=== PATIENT | male | born 1950 | race Caucasian/White ===

== ENCOUNTER 2018-12-16 08:48 | Outpatient (REF) | payer OTHER, SELFPAY ==
[2018-12-16 14:11] LABS: Cholesterol 163 mg/dL (50-200); Glucose 102 mg/dL (70-100); HDL Cholesterol 34 mg/dL (40-60); LDL CHOLESTEROL 108 mg/dL (<100); Triglyceride 127 mg/dL (30-150)
[2018-12-16 14:17] LABS: COMMENT (LAB VIEW ONLY) 268.89 mg/dL; Microalb ug/mg Crea 2.3 ug/mg Cr
[2018-12-16 15:10] LABS: Bacteria Moderate HPF (Negative); C & S Indicated? Yes; Casts Negative LPF (Negative); Crystals Negative HPF (Negative); Epithelial Cells Rare HPF (Negative); Mucus Moderate (Negative); RBC Negative (0-2)
[2018-12-17 12:12] LABS: Hepatitis C Ab w Rflx HCV PCR Negative (NEGAT)
== END 2018-12-16 09:08 ==
LOC: NCHCN 08:48
PROVIDERS: PCP Nurse Practitioner Family; Visit Provider Nurse Practitioner
DX: C64.2 Malignant neoplasm of left kidney, except renal pelvis (principal); I10 Essential (primary) hypertension; R73.09 Other abnormal glucose; Z83.3 Family history of diabetes mellitus; Z11.59 Encounter for screening for other viral diseases
CPT/HCPCS: 80061; 82947; 83721; 86803; 81015; 82043; 82570; 87086

== ENCOUNTER 2018-12-17 13:45 | Outpatient (REF) | payer OTHER, SELFPAY ==
[2018-12-17 21:53] LABS: Abs Immature Grans 0.01 k/cumm (0.0-0.09); Absolute Basophil Count 0.01 k/cumm (0.0-0.2); Absolute Eosinophil Count 0.09 k/cumm (0.0-0.7); Absolute Lymphocyte Count 1.85 k/cumm (1.2-3.4); Absolute Monocyte Count 0.38 k/cumm (0.11-0.7); Absolute Neutrophil Count 2.71 k/cumm (1.2-6.7); Basophils % 0.2; Eosinophils % 1.8; HCT 41.6 % (40.0-50.0); Immature Grans % 0.2; Lymphocytes % 36.6; Mean Corp. HGB Concentration 33.7 g/dL (32.0-36.0); Mean Corpuscular Hemoglobin 30.8 pg (27.0-33.0); Mean Corpuscular Volume 91.4 fL (80-95); Mean Platelet Volume 11.5 fL (8.0-11.0); Monocytes % 7.5; Neutrophils % 53.7; Platelet Count 185 x1000/uL (130-400); RBC 4.55 m/cumm (4.50-6.00); RBC Distribution Width 13.2 % (11.8-14.1); White Blood Cell Count 5.05 k/cumm (4.4-10.8)
[2018-12-17 22:07] LABS: ALT 60 U/L (12-78); AST 32 U/L (15-37); Albumin 3.7 g/dL (3.4-5.0); Alkaline Phosphatase 126 U/L (46-116); Amylase 104 U/L (25-115); Anion Gap 8.5 mmol/L (3-11); BUN 25 mg/dL (7-18); Bilirubin, Total 0.5 mg/dL (0.2-1.0); CO2 26.5 mmol/L (21.0-32.0); Calcium 8.8 mg/dL (8.5-10.1); Chloride 106 mmol/L (98-107); Glucose 89 mg/dL (70-100); Lipase 357 U/L (73-393); Potassium 4.6 mmol/L (3.5-5.1); Sodium 141 mmol/L (136-145); Total Protein 7.1 g/dL (6.4-8.2)
== END 2018-12-17 14:05 ==
LOC: NCHCN 13:45
PROVIDERS: PCP Nurse Practitioner Family; Visit Provider Nurse Practitioner
DX: R19.4 Change in bowel habit (principal)
CPT/HCPCS: 80053; 83690; 82150; 85025

== ENCOUNTER 2020-05-18 10:12 | Outpatient (REF) | payer OTHER, SELFPAY ==
[2020-05-18 20:46] LABS: Anion Gap 10.1 mmol/L (3-11); BUN 21 mg/dL (7-18); CO2 25.9 mmol/L (21.0-32.0); CREATININE 1.24 mg/dL (0.70-1.30); Calcium 8.7 mg/dL (8.5-10.1); Chloride 106 mmol/L (98-107); Glucose 124 mg/dL (74-106); Sodium 142 mmol/L (136-145)
== END 2020-05-18 10:32 ==
LOC: NCHCN 10:12
PROVIDERS: PCP Nurse Practitioner Family; Visit Provider Nurse Practitioner Family
DX: I10 Essential (primary) hypertension (principal)
CPT/HCPCS: 80048

== ENCOUNTER 2020-08-16 00:39 | Outpatient (CLI) | payer OTHER, SELFPAY ==
--- NOTE | 2020-08-16 | DI.RAD_ITS ---
EXAM: XR CHEST 2V PA LATERAL CLINICAL HISTORY: H/O RCC,F/U CHEST WITH NIPPLE MARKERS,C64.9 TECHNIQUE: COMPARISON: CR LEFT SHOULDER COMPLETE from 07/26/2016 FINDINGS: PA and lateral view of the chest, nipple markers were utilized. Nipple shadows are visible bilateral ly. No suspicious intrapulmonary nodularity or consolidation. No pleural effusion. Cardiomediastin al silhouette is unremarkable. IMPRESSION: Negative examination of the chest RADIATION DOSE DELIVERED: Total DLP
== END 2020-08-16 00:59 ==
PROVIDERS: PCP Nurse Practitioner Family; Visit Provider Surgery
DX: C64.9 Malignant neoplasm of unspecified kidney, except renal pelvis (principal)
CPT/HCPCS: 71046

== ENCOUNTER 2020-08-16 10:19 | Outpatient (CLI) | payer OTHER, SELFPAY ==
--- NOTE | 2020-08-16 08:45 | DI.RAD_ITS ---
EXAM: XR SHOULDER LT COMPLETE 2+V CLINICAL HISTORY: shoulder pain TECHNIQUE: COMPARISON: CR LEFT SHOULDER COMPLETE from 02/12/2012 FINDINGS: Two views were obtained. There is virtually complete loss of the cartilaginous joint space of the gl enohumeral joint with very prominent marginal osteophyte formation noted, particularly inferiorly inv olving the humeral head and glenoid. There is marked subchondral sclerosis of the adjacent bones. Slight degenerative changes of the AC joint also noted. IMPRESSION: End-stage degenerative changes glenohumeral joint as described above. RADIATION DOSE DELIVERED: Total DLP
== END 2020-08-16 10:39 ==
PROVIDERS: PCP Nurse Practitioner Family; Referring Provider Nurse Practitioner Family; Visit Provider Student in an Organized Health Care Education/Training Program
DX: M19.012 Primary osteoarthritis, left shoulder (principal)
CPT/HCPCS: 73030

== ENCOUNTER 2020-08-28 01:03 | Outpatient (CLI) | payer OTHER, SELFPAY ==
--- NOTE | 2020-08-28 07:00 | DI.MRI_ITS ---
EXAM: MR UPPER JOINT LT WO CLINICAL HISTORY: rotator cuff tear shoulder replacement planning,lt rotator cuff tear, TECHNIQUE: Multiplanar multisequence MRI of the shoulder was performed. COMPARISON: No exams were available for comparison FINDINGS: MARROW:There is no evidence of fracture, Hill-Sachs deformity, nor ominous osseous lesions. Advanced degenerative changes in the glenohumeral joint, as described below. There is also a moderate-sized g lenohumeral joint effusion extends into the medial recess. ROTATOR CUFF MECHANISM: AC JOINT/ACROMIUM: There are moderate degenerative changes in acromioclavicular joint. Undersurface of the acromion is concave.. There is no evidence of os acromiale. Supraspinatus: Partial-thickness tearing. Small area of what is most probably a full-thickness tear. There is fluid in subacromial-subdeltoid bursa. Minimal atrophy. Infraspinatus: Some insertional tendinitis. No high-grade tear. No atrophy. Teres Minor: Intact. No evidence of tear nor muscle atrophy. Subscapularis/anterior cuff: None GLENOHUMERAL JOINT: Moderate-sized joint effusion. No obvious loose intra-articular body. Advanced degenerative changes with significant Dana cartilage loss and beer-type osteophyte on the inferio r articular surface of the humeral head. Also subarticular small degenerative cysts on the humeral h ead side of the joint. No evidence of capsular tear. The inferior glenohumeral ligament is intact. BICEPS TENDON: Normally positioned within the intertubercular groove. Some increased signal within t he intra-articular component. No tenosynovitis. LABRUM: Anterior labral tear. Also appears be some tearing of the superior labrum. Also posterior l abral signal abnormality consistent with some tearing. No evidence of paralabral cyst. QUADRILATERAL SPACE: No evidence of mass in the region of the axillary nerve and dorsal circumflex hu meral vessels. Visualized triceps muscle at this level appears unremarkable. IMPRESSION: 1. There are advanced osteoarthritic degenerative changes of glenohumeral joint as described above in cluding advanced hyaline cartilage loss, labral tearing, degenerative subarticular cysts, and a promi nent landaverde-type osteophyte on the inferior articular surface of the humeral head. There is a signifi cant glenohumeral joint effusion. No obvious loose intra-articular body. 2. Partial-thickness tearing of the supraspinatus although there is probably a small full-thickness c omponent given that there is fluid in the subacromial-subdeltoid bursa. DATA REPOSITORY:
--- NOTE | 2020-08-28 10:04 | DI.CT_ITS ---
EXAM: CT UPPER EXTREMITY LT WO CLINICAL HISTORY: Preop templating,ARTHRITIS LT SHOULDER,M19.012 TECHNIQUE: Imaging Protocol: Axial computed tomography images with coronal and sagittal reformatted images were created and reviewed. CONTRAST MATERIAL: None COMPARISON: CR XR SHOULDER LT COMPLETE 2+V from 08/16/2020 X-rays 08/16/2020 reviewed FINDINGS: Bones: There are advanced osteoarthritic degenerative changes in the glenohumeral joint including advanced g lenohumeral joint space narrowing, subchondral sclerosis and small degenerative subarticular cysts on both sides of joint. There is also a prominent landaverde-type osteophyte on the inferior articular surf samantha of the humeral head. In addition, there is a loose intra-articular body in the posterior aspect of the joint space behind the osseous glenoid which measures 8 x 7 by 21 millimeters. Coracoid proce ss appears unremarkable. No Hill-Sachs deformity on the humeral head posterolateral aspect. There are no ominous osseous lesions. IMPRESSION: Advanced osteoarthritic degenerative changes in the left glenohumeral joint Intra-articular calcific density posterior to the humeral head-osseous glenoid with measurements as a lori. Prominent glenohumeral joint effusion noted. RADIATION DOSE DELIVERED: 768.52mGy.cm Total DLP DATA REPOSITORY: All CT scans at this facility are submitted to the National Radiology Data Registry (NRDR) Dose Index Registry (DIR) with the [employer] (ACR). RADIATION OPTIMIZATION: All CT scans at this facility use at least one of these dose optimization te chniques: automated exposure control; mA and/or kV adjustment per patient size (includes targeted exa ms where dose is matched to clinical indication); or iterative reconstruction.
== END 2020-08-28 01:23 ==
PROVIDERS: PCP Nurse Practitioner Family; Visit Provider Student in an Organized Health Care Education/Training Program
DX: M19.012 Primary osteoarthritis, left shoulder (principal); M25.412 Effusion, left shoulder; M75.112 Incomplete rotator cuff tear or rupture of left shoulder, not specified as traumatic
CPT/HCPCS: 73200; 73221

== ENCOUNTER 2020-09-01 19:16 | Outpatient (REF) | payer OTHER, SELFPAY ==
[2020-09-01 22:13] LABS: Anion Gap 7.3 mmol/L (3-11); BUN 20 mg/dL (7-18); CO2 27.7 mmol/L (21.0-32.0); CREATININE 1.29 mg/dL (0.70-1.30); Calcium 8.8 mg/dL (8.5-10.1); Chloride 108 mmol/L (98-107); Estimated GFR 55.06 (mL/min/1.73m2); Glucose 84 mg/dL (74-106); Potassium 4.4 mmol/L (3.5-5.1); Sodium 143 mmol/L (136-145); TSH (W/Ref FT4) 2.89 uIU/mL (0.36-3.74)
[2020-09-01 22:50] LABS: Hemoglobin A1C 5.4 % (<5.7)
[2020-09-04 09:59] LABS: PSA, Diagnostic 1.8 ng/mL (0.0-6.5)
[2020-09-06 12:20] LABS: Testosterone, Total 319 ng/dL (240-950)
== END 2020-09-01 19:36 ==
LOC: NCHCN 19:16
PROVIDERS: PCP Nurse Practitioner Family; Visit Provider Nurse Practitioner Family
DX: N52.9 Male erectile dysfunction, unspecified (principal); R73.03 Prediabetes; C64.2 Malignant neoplasm of left kidney, except renal pelvis
CPT/HCPCS: 80048; 84403; 83036; 84153; 84443

== ENCOUNTER 2020-09-04 02:55 | Outpatient (CLI) | payer OTHER, SELFPAY ==
[2020-09-05 15:21] LABS: COVID-19 RT-PCR UVMMC Result Negative (Negative)
== END 2020-09-04 03:15 ==
PROVIDERS: PCP Nurse Practitioner Family; Visit Provider Student in an Organized Health Care Education/Training Program
DX: Z11.59 Encounter for screening for other viral diseases (principal); Z01.818 Encounter for other preprocedural examination
CPT/HCPCS: U0003

== ENCOUNTER 2020-09-07 06:25 | Inpatient (IN) | payer OTHER, SELFPAY ==
[2020-09-07] VITALS (14 sets, daily range): BP systolic 92–153; BP diastolic 46–88; PULSE 51–77; RESP 12–20; TEMP 36.3–36.5; O2SAT 97–100
[2020-09-07] MEDS: Lactated Ringers 1,000 ML 100 ML IV ×2 (09:36→17:44)
[2020-09-07] MEDS: ceFAZolin 2 GM/50 ML BAG IVPB (11:24)
--- NOTE | 2020-09-07 16:00 | ROE_ITS ---
Date of service: 09/07/20 Time of Service: 14:00 Operative Note Operative Note DATE OF PROCEDURE: 09/07/20 PRE-OP DIAGNOSIS: Left shoulder: 1. End-stage glenohumeral arthritis 2. Long head of the biceps tendinopathy 3. Rotator cuff tear 4. Contracture POST-OP DIAGNOSIS: same PROCEDURE: Left: 1. Reverse total shoulder arthroplasty, CPT # 27989 2. Open biceps tenodesis, CPT # 93766 The oral surgery assistant was medically required as this procedure involves retraction, protection of neurovascular structures, and manipulation of multiple instruments and implants at the same time, which cannot be done without a skilled oral surgery assistant. SURGEON: Jax Alexander RECORD PRESS SUPERVISOR: Zina Lyon ANESTHESIA: GETA and regional ESTIMATED BLOOD LOSS: 200 TOURNIQUET TIME: 0 COMPLICATIONS: None Patient was transported to: PACU Patient's condition: stable Implants: [employer] modular glenoid system baseplate 24 mm +2 mm lateralized [employer] modular glenoid system central screw 25 mm [employer] modular glenoid system peripheral locking screws 32 mm inferior, 40 mm superior, 16mm posterior, 16mm anterior [employer] modular glenoid system glenosphere 42 +4 mm lateralized [employer] humeral stem 135 degrees size 9 [employer] suture cup size 42 neutral [employer] spacer size 42 +6 mm [employer] humeral insert size 42 +3 mm Indications: Please see complete medical record for details. Findings: Severe glenohumeral arthritis complete loss articular cartilage, deformity, and impinging osteophytes. Significant anterior capsular contraction. Degeneration thickening and partial tearing of the subscapularis and supraspinatus.. Significant long head of the biceps tendon tenosynovitis, edema, and fraying. Small loose bodies in the axillary recess. Procedure Description: In the operating room, general anesthesia was induced. The patient was positioned beachchair on the operating room table. All bony prominences were well-padded. Preoperative antibiotics were administered. The shoulder was prepped and draped in the usual sterile fashion for shoulder arthroplasty. The correct patient, procedure, and side of the procedure were all verified prior to incision. The deltopectoral approach was taken to the anterior shoulder. Care was taken to bluntly dissect the interval between the deltoid and pectoralis major muscles and to identify the cephalic vein within its fat stripe. The the vein was mobilized medially. Subdeltoid space and conjoined tendon were freed of adhesions. The long head of the biceps tendon was identified just lateral to the lesser tuberosity. The uppermost margin of the pectoralis major tendon was released from the proximal humerus. The long head of the biceps tendon was tenodesed in situ using #2 FiberWire in a [id number] fashion securing it superior margin the pectoralis major tendon. The biceps tendon was amputated and followed proximally to identify the rotator interval. A subscapularis peel was performed taking care to release the entirety tendon in a full-thickness fashion from superior to inferior and lateral to medial while bringing the arm gradually into external rotation. Care was taken to avoid the axillary nerve by only working on the bone inferiorly and medially. A large inferior humeral head osteophyte was removed in piecemeal using a rondure to aid in subscapularis and capsular release. The subscapularis was tagged using #2 FiberWire in a Ed- Shree fashion with stitch was placed superiorly, middle, and inferiorly at the medial footprint of the tendon. The stitches were used to confirm appropriate mobilization of the subscapularis tendon after gentle blunt dissection was used to free up the space anterior and posterior to it. The supraspinatus was identified and debrided significant partial-thickness tearing and removing thickened, degenerative tissue, and underlying osteophytes. Appropriate coagulation was achieved especially inferiorly. The surgical neck was cut using an oscillating saw and bone brought back table in case there was a need for future bone grafting. Attention was then turned to the glenoid and retractors were placed and a 360 degree release performed using the long head of the biceps remnant to remove soft tissue about the glenoid rim. The axillary nerve was palpated but not exposed inferior and traversing from beneath the subscapularis posteriorly below the scapular neck. Care was taken inferiorly to work on bone only between 5 and 7:00 o'clock and bluntly elevate tissues inferiorly. The glenoid was decorticated soft tissue and a minimal amount of residual cartilage. Once adequate exposure had been achieved, the VIP guide was placed on the glenoid and used to confirm placement and trajectory of the central guidepin. The guidepin was inserted through the VIP guide and advanced just through the far cortex ensuring adequate central screw length. Depth gauge was used to confirm appropriate central screw length. The central reamer followed by the peripheral reamer were then used to the appropriate depths. There was appropriate eccentric reaming inferiorly and anteriorly. The tap for the central screw was then used and withdrawn with the guidewire in place confirming appropriate length. The baseplate was screwed and fully compressed onto the glenoid surface. Testing the glenoid baseplate resulted in movement through the entire scapula. The over baseplate reamer was used to confirm adequate peripheral reaming had been achieved. The locking guide and drill were used to drill for inferior and superior baseplate locking screws. The depth gauge was used to confirm appropriate screw length and they were each gently engaged and then tightened once all screws were placed to reduce risk of rotating the baseplate. This was repeated for the anterior and posterior locking screws. The preselected lateralized glenosphere was applied with the infrastructure design engineer and then impacted to engage the Wyman taper. It was then locked with appropriate countersinking of the setscrew. The glenosphere was inspected and found to have good fit, appropriate positioning, and no soft tissue or bony impingement especially inferiorly. Attention was then turned back to the proximal humerus, which was delivered from the wound after additional releases superiorly and maintained in external rotation. Reamers were started appropriately posterior to the bicipital groove taking care to maintain lateralized alignment so as to be straight in line with the humeral canal. Reaming was done up to size 8. The broaches were sequentially used to open the proximal humerus starting with a size 5 and going up to size 9 and sunk to the appropriate depth while maintaining approximately 30 degrees retroversion. The size 9 had good metaphyseal fit and rotational control the humerus. A size 10 was attempted but would have been too large to sink to the appropriate depth. A neutral offset guide was used to ream for the suture cup. The humeral trial cup was connected. Trialing was commenced with +3mm liner. The shoulder was reduced and taken through range of motion. It was felt to moderately loose in terms of tension on the conjoined tendon, deltoid, and stability. The trial components were removed from the proximal humerus. The wound was copiously irrigated with normal saline. The the proximal humeral stem and suture cup were assembled on the back table. They were brought over to the proximal humerus. Humerus and suture cup were appropriately impacted into the proximal humerus. There were tested and found of excellent rotational control and fixation. Trial reduction for stability and range of motion was done again with the +3 mm liner. I felt the stability was lacking so trialing was then done with +6mm liner and then +6mm spacer and +3mm liner. This construct had improved, excellent stability without placing undue tension on the conjoined tendon or deltoid. The trial spacer liner removed and the definitive spacer and liner connected. Shoulder was reduced and these final implants demonstrated appropriate range of motion and stability. The shoulder was copiously irrigated with normal saline and then irrisept. Vancomycin powder was omitted given post nephrectomy status of the patient. The arm was placed in 45 degrees of external rotation. The subscapularis was reduced and repaired over the implant to the lessor tuberosity using the pairs of deep and superficial #2 FiberWire sutures taking care ensure there was no undue tension through 2 mm bone tunnels in the lesser tuberosity. The released supraspinatus was required to the greater tuberosity using #2 FiberWire. The rotator interval laterally was closed between the supraspinatus and the subscapularis also using #2 FiberWire. The arm was taken past 60 degrees of external rotation without any displacement of the subscapularis repair. The deltopectoral interval was loosely closed burying the cephalic vein with 0- Vicryl. Subcutaneous tissue was irrigated then closed using 2-0 Monocryl in a buried interrupted fashion. The skin was closed using 3-0 Monocryl in a buried subcuticular fashion. Skin glue was applied to the incision. A silver impregnated bandage was placed over the incision. The extremity was placed into a shoulder immobilizer. The patient awoke from anesthesia without complication and was taken to the recovery room in stable condition.
--- NOTE | 2020-09-07 16:35 | DI.RAD_ITS ---
EXAM: XR SHOULDER LT COMPLETE 2+V CLINICAL HISTORY: Postop. TECHNIQUE: 2D digital imaging was performed. COMPARISON: No exams were available for comparison FINDINGS: BONES: No acute fracture is present. No bony destructive lesion is seen. JOINTS: The patient is now status post left total reverse shoulder replacement. The orthopedic hardw are appears in good position. SOFT TISSUE: Postsurgical changes are seen in the soft tissues. IMPRESSION: Status post left total reverse shoulder replacement. DATA REPOSITORY: RADIATION DOSE DELIVERED:
--- NOTE | 2020-09-07 16:42 | W.PM.PROGNOT ---
Date of Service Date of service: 09/07/20 Time of Service: 16:42 Assessment and Plan Assessment and plan (1) Arthritis of left shoulder region: Status: Chronic Assessment and plan: 70-year-old male postop day #0 status post left reverse total shoulder arthroplasty with biceps tenodesis Complete 24 hours postoperative antibiotics Discontinue Agustin catheter postop day #1 Pain control-Multimodal as ordered. Must avoid NSAIDs due to post nephrectomy status. Physical therapy and Occupational Therapy ordered: See order miscellaneous text. Nonweightbearing left upper extremity. May remove sling while in bed or resting. Should use when ambulatory or out of home. Passive range of motion to the shoulder. Active range of motion elbow wrist and hand okay. May use left upper extremity gently for all essential ADLs including active range of motion within a limited arc and light weightbearing Continue mechanical DVT prophylaxis with SCDs and/or MOUNIKA hose Start 81 mg ASA 24 hours postoperative Plan discharge home tomorrow with family available to check in as needed. May arrange home health or physical therapy as indicated. (2) Left rotator cuff tear: Status: Chronic Qualifiers: Rotator cuff tear extent: incomplete Rotator cuff tear trauma status: nontraumatic Qualified Code(s): M75.112 - Incomplete rotator cuff tear or rupture of left shoulder, not specified as traumatic (3) Tendinitis of long head of biceps brachii of left shoulder: Status: Acute (4) Contracture of left shoulder: Status: Acute Subjective Subjective Interval history since last seen: Resting comfortably in PACU Exam Narrative Exam Narrative: No acute distress Breathing comfortably Left shoulder dressing clean dry intact 2+ radial pulse All compartments soft. No erythema or edema. Regional nerve anesthetic block in place unable demonstrate significant motor or sensory function throughout the left upper extremity Objective Last Vital Signs Temp 97.5 F L 09/07/20 16:38 Pulse 56 L 09/07/20 16:38 Resp 16 09/07/20 16:38 BP 124/77 09/07/20 16:38 Pulse Ox 98 09/07/20 16:38
[2020-09-07] MEDS: ceFAZolin 1 GM/50 ML BAG IVPB (21:36)
[2020-09-07] MEDS: Terazosin 2 MG CAP PO (21:36)
[2020-09-08 02:57] VITALS: BP 114/70; PULSE 74; RESP 18; TEMP 36.6; O2SAT 96
[2020-09-08] MEDS: ceFAZolin 1 GM/50 ML BAG IVPB ×2 (03:02→08:51)
[2020-09-08 07:25] VITALS: BP 116/69; PULSE 62; RESP 16; TEMP 37; O2SAT 96
--- NOTE | 2020-09-08 08:11 | OTIE_ITS ---
Occupational Therapy Notes Inpatient Occupational Therapy Evaluation Date: 09/08/20 Referring Doctor:Jax Alexander MD OT Orders: Urgent Precautions: Standard, Full, s/p (L) reverse total shoulder arthroplasty with an open biceps tenodesis. PATIENT PROFILE/ADMITTING DIAGNOSIS: Pt is a 70 year old male is 1 day s/p reverse total shoulder arthroplasty with an open biceps tenodesis performed by Dr. Alexander on 09/07/20. Restrictions post surgical procedure are in place to protect the shoulder. The functional restrictions for this pt include no IR/ER of (L) UE, no picking up objects greater than a weight of a coffee cup, no therapy repetitive AROM of (L) UE, no using the (L) shoulder for toileting hygiene, (L) shoulder can be used gently for ADLs as needed within the above restrictions and in the frontal plane without reaching or straining of his shoulder. OT and pt discuss this and performance of his ADLs within the precautions to avoid any provocative positions. 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 He states that he does not have a shower and sponge baths for his bathing routine. He has a girl friend who may be staying with him when he returns and his children live near by. He notes that he performs all of his assistance representative, cooking and cleaning (I) at baseline. He does not have any (A) come into his home previously and he is going to attend Outpatient PT at [facility] in September for balance and his shoulder recovery. Equipment owned/DME: FWW, cane, grab bars SUBJECTIVE: Pt was sitting in bed when OT arrived, his (L) UE resting on pillows to his side he notes that he did not sleep well last night due to discomfort and pain. It appears that he attempted to sleep with his sling in place. 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 DRESSING Pt denies performance of this at todays session but OT and pt discussed and went over don and doffing sling, don and doffing his shirt with using the in first, out last technique which pt was able to verbalize understanding. OT and pt went over don and doffing socks with sock aid which pt is (I) with at baseline, don and doffing pants with hands within ROM restrictions. OT provided pt with long handled shoe horn, dressing stick and software intern. GROOMING Pt is able to demonstrate increased use of his (R) UE to touch his hair which indicates (I) in brushing his hair and OT and pt went over brushing his teeth with use of (B) UE following restrictive guidelines he can support the toothbrush in his (L) hand in the safe position of his arm, squeeze his toothpaste with his (R) and then brush with his (R) UE as needed. TOILETING NT EATING Sitting in bed (I) with hand to mouth, chewing, swallowing and use of (R) UE (I). BALANCE: Static sitting Normal Dynamic Sitting Normal SPECIAL TESTS: Daily Activity Limitations Standardized Measure [facility] AM -PAC ?6 clicks? Daily Activity Inpatient Short Form: Raw score: 22 Standardized score: 47.10 CMS score: 25.80% INFORMED CONSENT/EDUCATION: Pt instructed in purpose of OT Consult and plan of care. ASSESSMENT: Patient is a 70-year-old male referred to occupational therapy services with diagnosis of arthritis (L) shoulder, (L) rotator cuff repair, contracture (L) shoulder and he is s/p reverse total shoulder arthroplasty with an open biceps tenodesis. Patient presents with clinical signs and symptoms consistent with dx, as demonstrated by the following impairment level findings/functional limitations: Impairments in ADL/IALD and leisure activities, decreased functional activity tolerance (L) UE, decreased gross and fine motor control of (L) UE, pain in (L) UE. AMPAC score 22 Patient is assessed as a Moderate [id number] complexity based on the following: History: see above Examination: see functional limitations Presentation: Evolving Decision Making: AMPAC score 22 GOALS Goals x1 week 1. Transfers (I) 2. Dressing Mod (I) LE, (I) UE 3. Bathing (I) standing at sink 4. Toileting (I) 5. Eating (I) PLAN OF CARE/TREATMENT PLAN: 1x/day, 5 days/ week x 1week Initiate Occupational Therapy Services for bathing, dressing, grooming, toileting, eating, transfer training. DISCHARGE RECOMMENDATIONS Based on pts current functional limitations and impairments OT recommends that pt return home with HHOT services for safety assessment of ADLs in the home setting and to assess for DME to further progress pts functional (I) in his home as he lives alone when medically cleared per MD. TREATMENT TIME/MINUTES/CODES 22639, [id number], 45 minutes (07:25) [facility]
--- NOTE | 2020-09-08 10:52 | INITIAL_ITS ---
- If Service Date Differs Date of service: 09/08/20 Time of Service: 14:07 Care Management Initial Assess REASON FOR HOSPITALIZATION:: Left Shoulder Arthritis PAST MEDICAL HISTORY/PAST SURGICAL HISTORY:: Anxiety, asthma, BPH, depression, hypertension, prediabetes, renal cell carcinoma of left kidney, hx of left nephrectomy, appendectomy, left inguinal hernia repair, total replacement of left hip PREVIOUS FUNCTIONAL STATUS/SOCIAL/FAMILY SUPPORTS:: Shree resides alone in [place], [place]. He reports being in a new relationship and shares that his girlfriend is supportive. He also has two brother who reside locally as well. 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 He is independent at baseline in the community. CURRENT FUNCTIONAL STATUS:: Shree reports feeling confident he can manage his care needs at home. He shares regret for not having surgery sooner, as he was struggling prior. He is agreeable to VNA supports for a short period of time but reports he will wait on M[facility] for now. He is friendly in interaction with this automatic typewriter inspector. Has patient been provided with info about the portal/API?: Yes Did the patient sign up for the portal?: No CODE STATUS:: Full Code INSURANCE COVERAGE / FINANCIAL ISSUES:: [facility] CURRENT HOME/COMMUNITY SERVICES/EQUIPMENT:: No current services, or equipment. POTENTIAL DISCHARGE NEEDS:: Orders for new VNA services RN/PT/OT. Follow up appointment with Ortho. PATIENT/FAMILY EDUCATION NEEDS:: Review discharge instructions, discuss Ask Me Three self care needs upon discharge. ANTICIPATED BARRIERS TO DISCHARGE:: None identified. TRANSPORTATION:: Via private vehicle with his brother and sister in law. PLAN:: Shree will return home when ready per MD. He will follow up with ortho and his plan of care as prescribed. He will have new home health orders for RN/PT/OT-[facility] notified. He will transport via private vehicle with his brother and sister in law.
--- NOTE | 2020-09-08 11:08 | PDOC.HHF2F ---
Home Health Certification Home Health Certification: 1. Encounter Date and Reason I certify that TOMÁS GALE was seen by Jax Alexander MD on 09/08/20 and that I had a [id number] encounter with this patient that meets the physician face to face encounter requirements. 2. Clinical Findings Supporting Skilled Need and Homebound Status I certify that home health services are medically necessary, include either intermittent retirement and/or physical/speech therapy, and that this patient is homebound in that absences from the home require considerable and taxing effort and are infrequent or of short duration, or are attributable to the need to receive medical care. [X] (a) Attached documentation from encounter provides clinical findings supporting skilled need and homebound status (including what assistance patient requires to leave the home). The encounter with the patient was in whole, or in part, for the following medical condition, which is the primary reason for home health care: LEFT SHOULDER ARTHRITIS STATUS post shoulder replacement Long-Term: Overall health status, vitals Physical Therapy: Gentle mobilization, gait training, instruction on transfers, and gentle passive range of motion about the shoulder Speech Therapy: Homebound: Yes, unable to drive due to recent shoulder replacement 3. Certification and Authentication I certify that I composed the above information based on my clinical judgement relating to this patient's medical condition and, if applicable, clinical findings communicated to me by the NPP or inpatient physician who performed the Home Health Referral. All further orders will be obtained through Jax Alexander MD?orthopedic surgeon
[2020-09-08 11:11] VITALS: BP 125/72; PULSE 60; RESP 16; TEMP 36.8; O2SAT 97
--- NOTE | 2020-09-08 11:17 | W.PM.DS.N ---
Date of service: 09/08/20 Time of Service: 11:12 DS: Diagnosis Discharge Diagnosis (1) Contracture of left shoulder: Status: Acute (2) Tendinitis of long head of biceps brachii of left shoulder: Status: Acute (3) Left rotator cuff tear: Status: Chronic (4) Arthritis of left shoulder region: Status: Chronic Discharge Plan Disposition Patient Disposition: HOME Condition: Stable Discharge Details Reason For Visit: LEFT SHOULDER ARTHRITIS Admit Date/Time: 09/07/20 06:25 Admit Provider: Jax Alexander Attending Provider: Jax Alexander Primary Care Provider: Norma Murdock Hospital Course Hospital Course: Left reverse TSA 09/07/20. Postoperative course uncomplicated. Home Meds and New Rx's Prescriptions: New aspirin 81 mg tablet,delayed release (DR/EC) 81 mg PO DAILY 14 Days Qty: 14 RF: 0 tramadol 50 mg Tablet 50 mg PO Q8H PRN PRN (Reason: severe pain) Qty: 16 RF: 0 Continued albuterol sulfate [ProAir HFA] 90 mcg/actuation HFA aerosol inhaler 2 puff inhalation QID PRN (Reason: shortness of breath or wheezing) Qty: 6.7 RF: 0 (DME) Aerochamber MV Spacer See Rx Instructions .ROUTE .MEDSUPPLY Qty: 1 RF: 0 terazosin 2 mg capsule 2 mg PO QHS Qty: 1 RF: 0 acetaminophen 500 mg Tablet 1,000 mg PO Q4H PRNRF: 0 Discharge Instructions Additional Instructions: Surgery: Reverse shoulder replacement with biceps tenodesis Activity: Non-weightbearing except for ADLs. You should keep your arm at your side in a neutral position at all times except for physical therapy and essential activities. Do not try to lift or raise your arm using your own muscles. You should use the sling whenever you are out of the house. You may have to adjust the abduction pillow or remove it for comfort. At home it is best to remove the sling and rest the arm on a pillow at your side or support the operative side with your other hand. You may allow the arm to dangle at your side. Home health physical therapy will help during the early postoperative period. An outpatient physical therapy prescription will be sent electronically to start in about 3 weeks. Reverse TSA Protocol: Postoperative Weeks 0-6 ?Immobilization: Sling may be removed for therapeutic exercises and bathing ?Motion exercises: Pendulum exercises, elbow range- of-motion exercises, wrist hjnfu-yw-ywobux exercises, and marketing program manager strengthening ?Restrictions: No active internal rotation or backwards extension Postoperative Weeks 6-12 ?Immobilization: Sling discontinued ?Motion exercises: Shoulder passive range of motion, advancing to active-assisted range of motion, and finally active range of motion with a goal of forward flexion to 90? and external rotation of 20? ?Strengthening exercises: Light, resisted forward flexion, external rotation, and abduction limited to isometric exercises and therapy bands with concentric motions only. Continue marketing program manager strengthening ?Restrictions: No resisted internal rotation or backwards extension. No scapular retraction exercises with therapy bands Postoperative Months 3-12 ?Motion exercises: Increase ircfr-fz-jpkvgp exercises to achieve full motion, with passive stretching at end ranges ?Strengthening: Begin resisted, internal rotation and backwards extension initially with isometric exercises advancing to light therapy bands and then weights. Advance other shoulder strengthening exercises to include the rotator cuff, deltoid, and scapular stabilizers. Advance to functional strengthening, including plyometric exercises and core strengthening. Prescriptions: Aspirin 81 mg take 1 daily to prevent a blood clot for 2 weeks Tramadol 50 mg take 1 every 6 hours as needed for moderate to severe pain You may use oxqk-fyy-fxrqjwy Tylenol (acetaminophen) as needed for mild pain. These pain medications may be taken all at once or in different combinations as needed. Ondansetron (Zofran) 4 mg take 1 orally dissolving tablet every 6 hours as needed for nausea or vomiting Also, recommend Colace (docusate) as a stool softener as surgery and pain medicine cause constipation. Dressings: Leave dressing in place until follow-up. Keep clean and dry at all times. No showers please. Follow-up: 10-14 days with an orthopedic physician call center assistant and [address] Alexander Please call the office during business hours with any questions or concerns. Let us know right away if you develop any redness, drainage, fevers, chest pain, or trouble breathing. Do not drink alcohol or drive for at least 24 hours after anesthesia. Stand Alone Forms: Nursing Discharge Form Referrals: Jax Alexander MD [ [facility] STAFF PHYSICIAN] - 09/19/20 10:00 am Activity:: As above Equipment/Supplies:: Shoulder abduction sling Diet:: As Tolerated Discharge Orders Discharge Orders: Discharge Order (Routine); Ordered 09/08/20 Ordered By: Jax Alexander DS: Summary Status at Discharge Functional status at discharge: uses cane/walker Overall status at discharge: patient is progressing back to baseline Mental Status: mental status grossly normal Speech and Movement: speech and movement normal Mood: congruent mood Affect: normal affect Exam Narrative Exam Narrative: Resting comfortably in hospital bed. No complaints of pain. Breathing easily on room air Left shoulder dressing clean dry intact Minimal edema, no erythema, no drainage 2+ radial pulse. Regular rate and rhythm. Sensation intact axillary, median, radial, ulnar nerves Motor intact biceps, triceps, wrist hand finger flexion, limited thumb wrist finger extension. Not tested abduction or active shoulder rotator cuff motion. Psych Mental Status: mental status grossly normal Speech and Movement: speech and movement normal Mood: congruent mood Affect: normal affect DS: Data Vitals/I&O Vitals and I&O: Vital Signs Respiratory Effort 09/05/20 15:10 [facility] Medical History Anxiety Denies having. Asthma BPH (benign prostatic hyperplasia) Deniies. Depression denies Hypertension Prediabetes Renal cell carcinoma of left kidney Surgical History History of left nephrectomy (2013) Status post appendectomy Status post left inguinal hernia repair (2014) Status post total replacement of left hip [place]01/15/17[place] [facility] [place] Smoking/Tobacco Use Status: Former Tobacco Use Smoking risk assessment performed?: Yes Drug use: Never Current gender identity: male
--- NOTE | 2020-09-08 11:21 | PT.INIE ---
Date of service: 09/08/20 Time of Service: 09:30 PT Notes Visit Reasons: LEFT SHOULDER ARTHRITIS Inpatient Physical Therapy Evaluation Date: September 08, 2020 Referring Doctor: Dr. Alexander PT Orders: PT CONSULT: Reverse total shoulder protocol Precautions: Standard, Full, s/p (L) reverse total shoulder arthroplasty with an open biceps tenodesis. PATIENT PROFILE/ADMITTING DIAGNOSIS: Pt is a 70 year old male is 1 day s/p reverse total shoulder arthroplasty with an open biceps tenodesis performed by Dr. Alexander on 09/07/20. Restrictions post surgical procedure are in place to protect the shoulder. The functional restrictions for this pt include no IR/ER of (L) UE, no picking up objects greater than a weight of a coffee cup, no therapy repetitive AROM of (L) UE, no using the (L) shoulder for toileting hygiene, (L) shoulder can be used gently for ADLs as needed within the above restrictions and in the frontal plane without reaching or straining of his shoulder. OT and pt discuss this and performance of his ADLs within the precautions to avoid any provocative positions. Past Medical History: Medical History (Updated 08/16/20 @ 11:53 by Jax Alexander MD) Anxiety Asthma BPH (benign prostatic hyperplasia) Depression Hypertension Prediabetes Renal cell carcinoma of left kidney Surgical History (Updated 08/16/20 @ 09:30 by Zina Lyon) History of left nephrectomy (2013) Status post appendectomy Status post left inguinal hernia repair (2014) Status post total replacement of left hip [place]01/15/17[place] [facility] [place]/Home Situation: Pt lives in a private home in [place], he states that he has 3 steps to enter the home and he states that he has a FWW and a cane which he doesn't use. He states that he does not have a shower and sponge baths for his bathing routine. He has a girl friend who may be staying with him when he returns and his children live near by. 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 He does not have any (A) come into his home previously and he is going to attend Outpatient PT at [facility] in September for balance and his shoulder recovery. Equipment owned/DME: FWW, cane, grab bars SUBJECTIVE: Pt was sitting in bed when OT arrived, his (L) UE resting on pillows to his side he notes that he did not sleep well last night due to discomfort and pain. Patient states that nursing removed his sling to allow him to sleep better at night. He is complaining of paresthesias symptoms and weakness in his left hand most involving his thumb index and middle finger. 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 Patient laying in bed with head of bed at 40 degrees. Mental Status: A&Ox4 Pain: c/o pain in (L) shoulder 4-5/10 ROM: RUE AROM WFL L UE: Active elbow flexion 105 degrees active assisted 120, extension 0 degrees. Forearm supination and pronation 60 degrees 75 respectively. Passive glenohumeral joint range of motion 50 degrees of scaption. Internal and external rotation not assessed. STRENGTH: RUE 4+/5 throughout globally LUE NT Bilateral lower extremity: 4+/5 quads and hamstrings. He is able to form a straight leg raise with 0 degree lag left and right. Hip abduction in sitting 4/5. FUNCTIONAL MOBILITY/ADLS: Sling use: Patient educated in donning and doffing of sling. Found it easier to apply the sling if he uses the waist belt first with the wedge pillow position in front of him so he can reach the shoulder strap easily with his right upper extremity. Transfers: Supine to sit: Standby assist head of bed 40 degrees Sit to stand: Standby assist with single-point cane Stand to sit: Standby assist Sit to supine: Independent Gait: Patient ambulated from bedside to door of his room approximately 12 feet x 2 with standby assist and use of single-point cane in right upper extremity. BALANCE: Static sitting Normal Dynamic Sitting Normal Static standing Fair Dynamic standing Fair SPECIAL TESTS: Daily Activity Limitations [facility] ?6 clicks? Daily Activity Inpatient Short Form: Raw score: 22 Standardized score: 47.10 CMS score: 25.80% INFORMED CONSENT/EDUCATION: Pt instructed in purpose of PT Consult and plan of care. ASSESSMENT: Patient is a 70-year-old male referred to physical therapy services with diagnosis of arthritis (L) shoulder, (L) rotator cuff repair, contracture (L) shoulder and he is s/p reverse total shoulder arthroplasty with an open biceps tenodesis. Patient presents with clinical signs and symptoms consistent with dx, as demonstrated by the following impairment level findings/functional limitations: Motor function, muscle performance, range of motion associated with bony tissue surgery. Do feel patient requires a standard cane which she has numerous at home for ambulation purposes as he was a little unsteady with his ambulation in the room. This was performed with contact-guard. Paresthesia in his left upper extremity to improve as his nerve block wears off. This was brought to the orthopedics attention and he is aware of it. Do feel patient is safe for discharge to home but did advise use of standard cane for ambulation purposes. Would recommend that he receives home health PT prior to his initiation of outpatient therapy which was already prescheduled for balance impairments but can certainly incorporate his shoulder rehab as well now. Patient is assessed as a Moderate 33683 complexity based on the following: History: see above Examination: see functional limitations Presentation: Evolving Decision Making: AMPAC score 22 PLAN OF CARE/TREATMENT PLAN: Discharge to home when cleared medically. DISCHARGE RECOMMENDATIONS Based on pts current functional limitations and impairments PT recommends that pt return home with HHPT services for safety assessment of ADLs, initiation of reverse total shoulder protocol, initiation of phase 1 exercises consisting active elbow flexion extension, active wrist flexion extension, gripping, passive range of motion to left glenohumeral joint, pendulums as well as further review for donning and doffing of sling. As per Ortho comments he is able to take his sling off at home so long as he is not up and moving around. He is to use it when performing community ambulation activities. In the home setting and to assess for DME to further progress pts functional (I) in his home as he lives alone when medically cleared per MD. TREATMENT TIME/MINUTES/CODES 19364, 45 minutes (09:30) Jorge Werner PT, DPT Disclaimer: This note was created using [email or web address] voice recognition software. It was reviewed for major content. However, there may be multiple small discrepancies and errors due to the voice recognition aspects of the software.
--- NOTE | 2020-09-08 11:52 | PDOC.ANES ---
Date of service: 09/08/20 Time of Service: 11:52 Anesthesia Note Report Anesthesia Note: I was requested to Mr. Jaeger bedside to discuss weakness and tingling of the hand. The patient was found sitting in his chair in the room awake and pleasant. He and his RN, Chata, described an overnight increase in numbness and tingling in his left first, second, and third digits. As expected, gross motor in his right hand was greater than his left and while some motor is present in his left hand all is generally weakened. The patient was able to sense pressure and touch. He denies pain at this time and is overall satisfied with the block. I did remind him that the block can last 24-48 hours, and rarely 72 hours. Due to the delayed nature of the development of increased numbness in these digits I am not certain it is tied to the block and am questioning a inflammatory etiology. If the parasthesia and weakness continues beyond the duration of the block the patient has been educated to contact us. The patient also questioned numbness to his heels and buttocks while in bed. He reports that these symptoms are better when he moves. He asked if these symptoms were related to the block and I educated him that it is most likely a pressure etiology and he should continue to follow team recommendations for movement and to float his heels at night. Education was presented to the patient with his nurse present.
--- NOTE | 2020-09-11 07:08 | OT.INDS ---
Date of service: 09/11/20 Time of Service: 07:08 Occupational Therapy Notes 09/11/20 Pt was seen for OT consult on 09/08/20 and later discharged to home same day when medically cleared per MD. No assessment of goals can be made due to only seeing pt for initial evaluation only. Based on this, and pts discharge home OT will discharge pt from skilled OT services at this time. Preethi Rooney, OTR/L [facility]
== END 2020-09-08 13:52 | disposition home or self-care (01) | DRG 483 ==
LOC: PDS 08:35 → MS 09-08 09:17 → PDS 09-08 09:17 → MS 09-08 09:18
PROVIDERS: Admitting Provider Student in an Organized Health Care Education/Training Program; PCP Nurse Practitioner Family; Visit Provider Student in an Organized Health Care Education/Training Program
PROC: 0RRK00Z Replacement of Left Shoulder Joint with Reverse Ball and Socket Synthetic Substitute, Open Approach (ICD-10-PCS; CPT 23472; principal; 2020-09-07 09:45)
DX: M19.012 Primary osteoarthritis, left shoulder (principal); M75.22 Bicipital tendinitis, left shoulder; M24.512 Contracture, left shoulder; M75.102 Unspecified rotator cuff tear or rupture of left shoulder, not specified as traumatic; I10 Essential (primary) hypertension; N40.0 Benign prostatic hyperplasia without lower urinary tract symptoms; J45.909 Unspecified asthma, uncomplicated; F41.9 Anxiety disorder, unspecified; R73.03 Prediabetes; Z85.528 Personal history of other malignant neoplasm of kidney; Z90.5 Acquired absence of kidney
CPT/HCPCS: 23472; 23430; 76942; 97161; 97166; 97535; NC; 73030; C1781; J0690; J1100; J2370; J2405; J2704; J3490

== ENCOUNTER 2020-09-19 10:40 | Outpatient (CLI) | payer OTHER, SELFPAY ==
--- NOTE | 2020-09-19 10:15 | DI.RAD_ITS ---
EXAM: XR SHOULDER LT COMPLETE 2+V INDICATION: follow up. COMPARISON: CR XR SHOULDER LT COMPLETE 2+V from 09/07/2020 TECHNIQUE: 2D digital imaging was performed. FINDINGS: A reverse shoulder prosthesis is again noted. The alignment appears satisfactory. There is small a mount of residual postsurgical air in the soft tissues. DATA REPOSITORY: RADIATION DOSE DELIVERED:
== END 2020-09-19 11:00 ==
PROVIDERS: PCP Nurse Practitioner Family; Referring Provider Nurse Practitioner Family; Visit Provider Physician Assistant Surgical
DX: Z96.612 Presence of left artificial shoulder joint (principal)
CPT/HCPCS: 73030

== ENCOUNTER 2020-10-03 10:56 | Outpatient (CLI) | payer OTHER, SELFPAY ==
--- NOTE | 2020-10-03 10:30 | DI.RAD_ITS ---
EXAM: XR SHOULDER LT COMPLETE 2+V INDICATION: F/u. COMPARISON: CR XR SHOULDER LT COMPLETE 2+V from 09/19/2020 TECHNIQUE: 2D digital imaging was performed. FINDINGS: There has been no change in the alignment of the left reverse shoulder prosthesis or appearance of t he surrounding bone. No new abnormalities are seen. DATA REPOSITORY: RADIATION DOSE DELIVERED:
== END 2020-10-03 11:16 ==
PROVIDERS: PCP Nurse Practitioner Family; Referring Provider Nurse Practitioner Family; Visit Provider Student in an Organized Health Care Education/Training Program
DX: Z96.612 Presence of left artificial shoulder joint (principal)
CPT/HCPCS: 73030

== ENCOUNTER 2020-11-28 14:55 | Outpatient (CLI) | payer OTHER, SELFPAY ==
--- NOTE | 2020-11-28 14:45 | DI.RAD_ITS ---
CLINICAL HISTORY: S/P TOTAL SHOULDER TECHNIQUE: 2D digital imaging was performed. COMPARISON: CR XR SHOULDER LT COMPLETE 2+V from 10/03/2020 CR XR SHOULDER LT COMPLETE 2+V from 10/03/2020 FINDINGS: BONES: No acute fracture is present. No bony destructive lesion is seen. JOINTS: No dislocation present. There is a stable left reverse total shoulder replacement. No evide nce of hardware failure. SOFT TISSUE: Normal. IMPRESSION: Stable left shoulder replacement. DATA REPOSITORY: RADIATION DOSE DELIVERED:
== END 2020-11-28 14:56 | disposition home or self-care (01) ==
LOC: DIORS 14:55
PROVIDERS: PCP Nurse Practitioner Family; Visit Provider Student in an Organized Health Care Education/Training Program
DX: Z96.612 Presence of left artificial shoulder joint (principal)
CPT/HCPCS: 73030

== ENCOUNTER 2021-01-25 08:56 | Outpatient (REF) | payer OTHER, SELFPAY ==
[2021-01-25 13:28] LABS: Anion Gap 8.7 mmol/L (3-11); BUN 19 mg/dL (7-18); CO2 27.3 mmol/L (21.0-32.0); CREATININE 1.4 mg/dL (0.70-1.30); Calcium 8.5 mg/dL (8.5-10.1); Calculated LDL 118 mg/dL (<100); Chloride 108 mmol/L (98-107); Cholesterol 175 mg/dL (<200); Glucose 97 mg/dL (74-106); HDL Cholesterol 42 mg/dL (40-60); Potassium 4.3 mmol/L (3.5-5.1); Sodium 144 mmol/L (136-145); Triglyceride 79 mg/dL (<150)
[2021-01-25 21:53] LABS: PSA, Screening 2.3 ng/mL (0.0-6.5)
[2021-01-26 12:09] LABS: Hepatitis C Ab w Rflx HCV PCR Negative (Negative)
== END 2021-01-25 08:57 | disposition home or self-care (01) ==
LOC: NCHCN 08:56
PROVIDERS: PCP Nurse Practitioner Family; Visit Provider Nurse Practitioner Family
DX: R73.03 Prediabetes (principal); E78.5 Hyperlipidemia, unspecified; I10 Essential (primary) hypertension; C64.2 Malignant neoplasm of left kidney, except renal pelvis; Z12.5 Encounter for screening for malignant neoplasm of prostate; Z11.59 Encounter for screening for other viral diseases
CPT/HCPCS: 80048; 80061; 84153; 86803

== ENCOUNTER 2021-03-06 00:50 | Outpatient (CLI) | payer OTHER, SELFPAY ==
--- NOTE | 2021-03-06 | DI.US_ITS ---
APPROVED REPORT EXAM: Comprehensive 2D, Doppler, and color-flow Echocardiogram Patient Location: Out-Patient Hat Copyist: Cherri Benton RDCS (AE) Indications: Murmur, HTN Other Information Study Quality: Adequate Conclusion Left Ventricle : The left ventricle is normal size. The left ventricular ejection fraction is within the normal range. Mild concentric left ventricular hypertrophy. There is normal LV segmental wall mot ion. The left ventricular diastolic function is normal. LVEF is 58%. Right Ventricle : Right ventricle is grossly normal in size. Right ventricular systolic function is g rossly normal. The RVSP is 25.1 mmHg. Atria : The left atrium size is normal. The right atrium size is normal. Mitral Valve : The mitral valve is normal in structure. Trace to mild mitral regurgitation. No eviden ce of mitral valve stenosis. Great Vessels : The aortic root is normal in size. The ascending aorta is mildly dilated. Aortic arch is normal in caliber. IVC is normal in size and collapses >50% with inspiration. Compared to report from [facility] on 06/29/2018, there is no significant change. Wall motion Left Ventricle The left ventricle is normal size. The left ventricular ejection fraction is within the normal range. Mild concentric left ventricular hypertrophy. There is normal LV segmental wall motion. The left adrian tricular diastolic function is normal. There is no ventricular septal defect visualized. LVEF is 58%. Right Ventricle Right ventricle is grossly normal in size. Right ventricular systolic function is grossly normal. The RVSP is 25.1 mmHg. Atria The left atrium size is normal. The right atrium size is normal. The interatrial septum is intact wit h no evidence for an atrial septal defect. Aortic Valve The aortic valve is normal in structure. Aortic valve is trileaflet. There is no aortic valvular sten osis. No aortic regurgitation is present. Mitral Valve The mitral valve is normal in structure. No evidence of mitral valve stenosis. Trace to mild mitral r egurgitation. Tricuspid Valve The tricuspid valve is normal in structure. There is no tricuspid valve stenosis. Mild tricuspid regu rgitation. Pulmonic Valve The pulmonary valve is normal in structure. There is no pulmonic valvular stenosis. Trace pulmonic re gurgitation. Great Vessels The aortic root is normal in size. The ascending aorta is mildly dilated. Aortic arch is normal in ca liber. IVC is normal in size and collapses >50% with inspiration. Pericardium There is no pericardial effusion. 2D Dimensions IVSD d PLAX 1.26 cm M: 0.6-1.2 LV Vol A2C d MOD 103.3 mL LVPW d PLAX 1.27 cm M: 0.6 - 1.2 LV Vol A4C d MOD 102.4 mL LVID d PLAX 4.30 cm M: 4.2 - 5.8 LA vol/ BSA A2C s A-L 27.6 mL/m2 LVDs 2.95 cm M: 2.5 - 4.0 LA vol/ BSA A4C s A-L 18.1 mL/m2 Ao Root d 2.82 cm M: 3.1 - 3.7 LA Vol/ BSA Biplane s A-L 22.9 mL/m2 RA Area A4C 13.87 cm2 LA Area A4C s MOD 15.89 cm2 RA Vol/ BSA A4C s A-L 18.5 mL/m2 LA Area A2C s MOD 19.08 cm2 Ao Asc Diam d 3.58 cm M: 2.6 - 3.4 LV EF A4C MOD 57.2 % LV EF Teichholz 58.6 % LV EF A2C MOD 58.7 % LVEF (Pritchard's) 57.49 % M: 52 - 72 LV EF Biplane MOD 57.5 % LV Volume 76.56 mL M: 62 - 150 SV 59.11 mL LV Volume Index 37.52 mL/m2 M: 34 - 74 SV Index 28.92 mL/m2 LV Vol Biplane MOD 102.8 mL FS 30.70 % M-Mode TAPSE 1.64 cm (M/F) >1.7 LV Diastology MV E' medial 0.065 (>0.07 m/s) E/A Ratio 0.8 LV E/e MED 10.95 (<14) MV E Vmax 0.71 (0.4-1.3 m/s) MV E' lateral 0.083 (>0.1 m/s) MV A Vmax 0.85 (0.4-1.3 m/s) LV E/e LAT 8.50 (<14) MV E/A Ratio 0.82 MV E/E' medial 10.98 MV E/E' lateral 8.53 Aortic Valve LVOT Area 3.17 cm2 AoV Area Vmax 2.33 cm2 LVOT Vmax 1.17 m/s AoV Area/ BSA (Vmax) 1.14 cm2/m2 LVOT Mean Anderson. 0.71 m/s MIKEL Mean Anderson. 2.09 cm2 LVOT Peak Grad 5.4 mmHg MIKEL Mean Anderson. Index 1.02 cm2/m2 LVOT Mean Grad 2.5 mmHg LVOT VTI 0.260 m LVOT Diam s 2.00 cm AoV Vmax 1.58 m/s Velocity Ratio 0.74 AoV Mean Anderson. 1.08 m/s AoV Peak Grad 10.0 mmHg LVOT SV 82.25 mL AoV Mean Grad 5.3 mmHg AoV VTI 0.305 m AoV Area VTI 2.70 cm2 AoV Area/ BSA (VTI) 1.32 cm/m2 Mitral Valve MV DT 224 (160-240 msec) MV PHT 65 msec MV Area PHT 3.39 cm2 MV VTI 0.378 m MV Area VTI 2.18 (4.0-6.0 cm2) Pulmonary Valve PV Vmax 1.02 (0.5-1.5 m/s) RVOT Peak Gr. 1.48 mmHg PV Peak Grad 4.2 mmHg RVOT Mean Gr. 0.65 mmHg PV Mean Grad 2.3 mmHg RVOT VTI 0.123 m PV VTI 0.242 m RVOT Vmax 0.61 m/s Tricuspid Valve TR Peak Grad 22.1 mmHg TR Vmax 2.35 m/s RA Pressure 3.00 mmHg RVSP (TR) 25.1 mmHg
--- NOTE | 2021-03-06 | DI.CT_ITS ---
Exam(s) CT ABDOMEN PELVIS W EXAM: CT ABDOMEN PELVIS W CLINICAL HISTORY: LT INGUINAL HERNIA,K40.90 TECHNIQUE: Imaging Protocol: Axial computed tomography images with coronal and sagittal reformatted images were created and reviewed CONTRAST MATERIAL: Intravenous: Omnipaque 350 Contrast volume:100 mL Oral: Yes COMPARISON: CT CT ABDOMEN W CONTRAST from 08/09/2020 FINDINGS: ABDOMEN: Lung Bases: Normal where visualized. Liver: Normal density. There are few tiny hypodensities seen in the left lobe of the liver. They are too small for further characterization, but likely reflect small cysts. Portal, Superior Mesenteric, and Splenic Veins: Unremarkable. Gallbladder and Biliary Tract: No radiodense calculus or dilation. Pancreas: Normal density, no abnormal calcifications or inflammatory process. Spleen: Normal. Adrenals: No masses seen. Kidneys: Status post left nephrectomy. No radiodense stones or obstructive uropathy. No masses seen. Abdominal Aorta: Abdominal portion non-dilated. Mild atherosclerosis. Bowel: No obstruction or bowel wall thickening. No appendicitis. Peritoneal Cavity: No ascites, collection or mesenteric inflammatory response. No free air. Lymph Nodes: Within normal limits. Bones: Within normal limits for the patient's age. There is a left total hip replacement. Soft Tissues: There is no evidence of a left inguinal hernia. There may be a small fat containing ri ght inguinal hernia. PELVIS: Bladder: Symmetric distention, no gross wall thickening. Portions of the bladder are obscured by the artifact from the patient's left hip replacement. Reproductive Organs: Visually unremarkable. Portions are obscured by the left hip prosthesis. Lymph Nodes: Within normal limits. Bones: Within normal limits for the patient's age. IMPRESSION: 1. No evidence of a left inguinal hernia. 2. Status post left nephrectomy. 3. Question of a small fat containing right inguinal hernia. RADIATION DOSE DELIVERED: 1,079.38mGy.cm Total DLP DATA REPOSITORY: All CT scans at this facility are submitted to the National Radiology Data Registry (NRDR) Dose Index Registry (DIR) with the [employer] (ACR). RADIATION OPTIMIZATION: All CT scans at this facility use at least one of these dose optimization te chniques: automated exposure control; mA and/or kV adjustment per patient size (includes targeted exa ms where dose is matched to clinical indication); or iterative reconstruction.
[2021-03-06] MEDS: Breeza Beverage 473 ML BTL PO ×2 (08:10→08:11)
[2021-03-06 08:55] LABS: CREATININE 1.4 mg/dL (0.70-1.30)
[2021-03-06] MEDS: Omnipaque 350 MG/ML 100 ML BTL IJ (10:25)
[2021-03-06] MEDS: Normal Saline - Diluent 50 ML VIAL IV (10:26)
[2021-03-06] MEDS: Normal Saline Flush 10 ML SYR IVP (10:26)
== END 2021-03-06 01:10 ==
PROVIDERS: PCP Nurse Practitioner Family; Visit Provider Nurse Practitioner Family
DX: I77.810 Thoracic aortic ectasia (principal)
CPT/HCPCS: 74177; 82565; 93306; J3490

== ENCOUNTER 2021-04-18 09:18 | Outpatient (CLI) | payer OTHER, SELFPAY ==
--- NOTE | 2021-04-18 09:00 | DI.RAD_ITS ---
Exam(s) XR SHOULDER LT COMPLETE 2+V EXAM: XR SHOULDER LT COMPLETE 2+V CLINICAL HISTORY: arthritis of left shoulder f/u. TECHNIQUE: 2D digital imaging was performed. COMPARISON: CR XR SHOULDER LT COMPLETE 2+V from 11/28/2020 FINDINGS: There is stable position alignment of the components of the reverse prosthesis. No fracture or loose jose evident. No radiographic evidence of osteomyelitis. IMPRESSION: DATA REPOSITORY: RADIATION DOSE DELIVERED:
== END 2021-04-18 09:19 | disposition home or self-care (01) ==
LOC: DIORS 09:18
PROVIDERS: PCP Nurse Practitioner Family; Visit Provider Student in an Organized Health Care Education/Training Program
DX: M19.012 Primary osteoarthritis, left shoulder (principal)
CPT/HCPCS: 73030

== ENCOUNTER 2021-09-26 10:15 | Outpatient (CLI) | payer OTHER, SELFPAY ==
--- NOTE | 2021-09-26 10:00 | DI.RAD_ITS ---
Exam(s) XR SHOULDER LT COMPLETE 2+V EXAM: XR SHOULDER LT COMPLETE 2+V CLINICAL HISTORY: left shoulder f/u TECHNIQUE: COMPARISON: CR XR SHOULDER LT COMPLETE 2+V from 04/18/2021 FINDINGS: Two views were obtained and show a reverse shoulder prosthesis in position. The components appear we ll seated. No other significant bony abnormality seen. IMPRESSION: RADIATION DOSE DELIVERED: Total DLP
== END 2021-09-26 10:16 | disposition home or self-care (01) ==
LOC: DIORS 10:16
PROVIDERS: PCP Nurse Practitioner Family; Referring Provider Nurse Practitioner Family; Visit Provider Student in an Organized Health Care Education/Training Program
DX: M25.612 Stiffness of left shoulder, not elsewhere classified (principal); Z96.612 Presence of left artificial shoulder joint
CPT/HCPCS: 73030

== ENCOUNTER 2022-01-10 01:26 | Outpatient (CLI) | payer OTHER, SELFPAY ==
--- NOTE | 2022-01-10 15:00 | DI.US_ITS ---
APPROVED REPORT EXAM: Comprehensive 2D, Doppler, and color-flow Echocardiogram Patient Location: Out-Patient Transmission Mechanic: Cherri Benton RDCS (AE) Indications: Murmur, SOB Other Information Study Quality: Fair. Technically limited study due to body habitus, limited subcoastal imaging.. Conclusion Mild concentric left ventricular hypertrophy. Normal left ventricular chamber size. Estimated eject ion fraction is 60%. Wall motion is normal Normal right ventricular size and systolic function Both atria are normal in size There is no structural or hemodynamically significant valvular disease Mildly dilated ascending aorta measuring 3.94 cm Estimated right ventricular systolic pressure is 35 mmHg Wall motion Left Ventricle The left ventricle is normal size. The left ventricular systolic function is normal. The left ventric ular ejection fraction is within the normal range. Borderline concentric left ventricular hypertrophy . There is normal LV segmental wall motion. LVEF is 57%. Right Ventricle Right ventricle is grossly normal in size. Right ventricular systolic function is grossly normal. The RVSP is 35.4 mmHg. Atria The left atrium size is normal. The right atrium size is normal. Aortic Valve The aortic valve is normal in structure. Aortic valve is trileaflet. There is no aortic valvular sten osis. No aortic regurgitation is present. Mitral Valve The mitral valve is normal in structure. No evidence of mitral valve stenosis. Trace mitral regurgita tion. Tricuspid Valve The tricuspid valve is normal in structure. There is no tricuspid valve stenosis. Trace tricuspid reg urgitation. Pulmonic Valve The pulmonary valve is normal in structure. There is no pulmonic valvular stenosis. Trace to mild pul magen regurgitation. Great Vessels The aortic root is normal in size. The ascending aorta is moderately dilated.3.94 cm Aortic arch is n ormal in caliber. Technically difficult subcostal imaging. IVC not visible. 2D Dimensions IVSD d PLAX 1.21 cm M: 0.6-1.2 LV Vol A2C d MOD 112.7 mL LVPW d PLAX 1.21 cm M: 0.6 - 1.2 LV Vol A4C d MOD 109.0 mL LVID d PLAX 4.32 cm M: 4.2 - 5.8 LA vol/ BSA A2C s A-L 25.3 mL/m2 LVDs 2.95 cm M: 2.5 - 4.0 LA vol/ BSA A4C s A-L 28.6 mL/m2 Ao Root d 3.14 cm M: 3.1 - 3.7 LA Vol/ BSA Biplane s A-L 27.3 mL/m2 RA Area A4C 15.43 cm2 LA Area A4C s MOD 19.46 cm2 RA Vol/ BSA A4C s A-L 20.1 mL/m2 LA Area A2C s MOD 18.02 cm2 Ao Asc Diam d 3.94 cm M: 2.6 - 3.4 LV EF A4C MOD 57.1 % LV EF Teichholz 58.3 % LV EF A2C MOD 57.1 % LVEF (Pritchard's) 57.29 % M: 52 - 72 LV EF Biplane MOD 57.3 % LV Volume 82.02 mL M: 62 - 150 SV 63.94 mL LV Volume Index 38.50 mL/m2 M: 34 - 74 SV Index 30.04 mL/m2 LV Vol Biplane MOD 111.6 mL FS 30.50 % M-Mode TAPSE 2.45 cm (M/F) >1.7 LV Diastology MV E' medial 0.059 (>0.07 m/s) E/A Ratio 0.8 LV E/e MED 12.65 (<14) MV E Vmax 0.74 (0.4-1.3 m/s) MV E' lateral 0.073 (>0.1 m/s) MV A Vmax 0.90 (0.4-1.3 m/s) LV E/e LAT 10.10 (<14) MV E/A Ratio 0.78 MV E/E' medial 12.67 MV E/E' lateral 10.13 Aortic Valve LVOT Area 3.05 cm2 AoV Area Vmax 2.20 cm2 LVOT Vmax 1.24 m/s AoV Area/ BSA (Vmax) 1.03 cm2/m2 LVOT Mean Anderson. 0.77 m/s MIKEL Mean Anderson. 2.01 cm2 LVOT Peak Grad 6.2 mmHg MIKEL Mean Anderson. Index 0.94 cm2/m2 LVOT Mean Grad 2.9 mmHg LVOT VTI 0.272 m LVOT Diam s 1.95 cm AoV Vmax 1.72 m/s Velocity Ratio 0.72 AoV Mean Anderson. 1.18 m/s AoV Peak Grad 11.9 mmHg LVOT SV 83.16 mL AoV Mean Grad 6.3 mmHg AoV VTI 0.320 m AoV Area VTI 2.60 cm2 AoV Area/ BSA (VTI) 1.22 cm/m2 Mitral Valve MV DT 301 (160-240 msec) MV PHT 87 msec MV Area PHT 2.52 cm2 MV VTI 0.353 m MV Area VTI 2.36 (4.0-6.0 cm2) Pulmonary Valve PV Vmax 1.40 (0.5-1.5 m/s) RVOT Peak Gr. 3.59 mmHg PV Peak Grad 7.9 mmHg RVOT Mean Gr. 1.50 mmHg PV Mean Grad 3.6 mmHg RVOT VTI 0.167 m PV VTI 0.234 m RVOT Vmax 0.95 m/s Tricuspid Valve TR Peak Grad 32.4 mmHg TR Vmax 2.85 m/s RA Pressure 3.00 mmHg RVSP (TR) 35.4 mmHg
== END 2022-01-10 01:46 ==
PROVIDERS: PCP Nurse Practitioner Family; Visit Provider Family Medicine
DX: R01.1 Cardiac murmur, unspecified (principal); R06.02 Shortness of breath
CPT/HCPCS: 93306

== ENCOUNTER 2022-07-23 15:07 | Outpatient (REF) | payer OTHER, SELFPAY ==
[2022-07-23 16:00] LABS: Bilirubin Negative (Negative); Blood Negative (Negative); Clarity Clear (Clear); Glucose Negative (Negative); Ketones Negative (Negative); Leukocyte Esterase Negative (Negative); Nitrite Negative (Negative); Specific Gravity >= 1.030 (1.005-1.025); Urobilinogen 0.2 EU/dL (Up TO 0.2)
[2022-07-23 16:07] LABS: BUN 28 mg/dL (7-18); CREATININE 1.4 mg/dL (0.70-1.30); Calcium 9.1 mg/dL (8.5-10.1); Chloride 110 mmol/L (98-107); Glucose 87 mg/dL (74-106); Potassium 4.3 mmol/L (3.5-5.1); Sodium 143 mmol/L (136-145)
== END 2022-07-23 15:08 | disposition home or self-care (01) ==
LOC: NCHCN 15:07
PROVIDERS: PCP Nurse Practitioner Family; Visit Provider Physician Assistant
DX: I10 Essential (primary) hypertension (principal)
CPT/HCPCS: 80048; 81003

== ENCOUNTER 2022-12-02 01:53 | Outpatient (CLI) | payer OTHER, SELFPAY ==
--- NOTE | 2022-12-02 | DI.MRI_ITS ---
Exam(s) MR BRAIN WO EXAM: MR BRAIN WO CLINICAL HISTORY: EYE PAIN LT, H57.12, ATAXIA TECHNIQUE: Multiplanar multisequence MRI of the brain was performed. COMPARISON: CT CT ABDOMEN W CONTRAST from 08/09/2020 FINDINGS: VENTRICLES AND EXTRA AXIAL SPACES: Normal in size and morphology for the patient's age. MIDLINE SHIFT: None. CEREBRAL PARENCHYMA: No focus of restricted diffusion to suggest acute infarct. No space-occupying le kd identified. HEMORRHAGE: None. BRAINSTEM/CEREBELLUM: Normal. CALVARIUM: Normal. VISUALIZED PARANASAL SINUSES/MASTOIDS:There is a small mucous retention cyst or polyp in the left max illary sinus. The remaining visualized paranasal sinuses and mastoid air cells are clear. [place]: Normal flow void. PITUITARY GLAND: Unremarkable. OTHER FINDINGS: The visualized orbits and retro-orbital soft tissues are grossly unremarkable. IMPRESSION: Unremarkable MRI of the brain. DATA REPOSITORY:
== END 2022-12-02 02:13 ==
LOC: DI 01:53
PROVIDERS: PCP Physician Assistant; Visit Provider Physician Assistant
DX: H57.12 Ocular pain, left eye (principal); R27.0 Ataxia, unspecified; J34.1 Cyst and mucocele of nose and nasal sinus
CPT/HCPCS: 70551

== ENCOUNTER 2022-12-31 00:28 | Outpatient (CLI) | payer OTHER, SELFPAY ==
--- NOTE | 2022-12-31 08:45 | DI.NM_ITS ---
APPROVED REPORT Exam: Pharmacologic Patient Location: Out-Patient Room/Bed: Stress Nurse: Judit Goyal RN Ordering Provider:SHAGGY PATTIE, Contact Number: [phone] BMI: 32.73 Baseline Rhythm: Sinus Rhythm Indications: SOB Medical History Medical History: Arthritis, rebal cell carcinoma, depression, anxiety, HTN, Asthma, BPH, Cardiac murm ur, SOB, Pre DM, Obesity, former smoker. Cardiac Medications: Terazosin, amlodipine, albuterol sulfate Allergies: Amitriptyline, Diltiazem, Lisinopril Cardiac Risk Factors: HTN, DM, Asthma, sMOKER, oBESITY. Previous Cardiac Procedures: None Pretest Chest Pain Characteristics: None Exercise History: Sedentary Physical Disabilities: Back pain, ataxia, hips. Lung Sounds: Diminished, clear. Heart Sounds: Regular, distant. Stress Test Details Test: Pharmacologic stress testing performed using 0.4 mg of regadenoson per 5 mL given IV over 10 s econds. Reason for pharmacologic stress test: physical limitation. Nuclear Acquisition: Rest Tc-99m/Stress Tc-99m 1 day Rest Isotope: Tc-99m Sestamibi. Dose: 10 Date: 12/31/2022 Injection Time: 0845 Stress Isotope: Tc-99m Sestamibi. Dose: 32 Date: 12/31/2022 Injection Time: 1020 HR Resting HR Supine: 61 bpm Max Heart Rate (APMHR): 148.609814 bpm Target HR (85% APMHR): 125.948818 bpm Max HR Achieved: 96 bpm % of APMHR: 64.86 Recovery HR: 67 bpm BP Resting BP Supine: 162/94 mmHg Max BP: 162/94 mmHg Recovery BP: 138/84 mmHg ECG Resting ECG: Sinus Rhythm Ectopy: none Stress ECG: Sinus Rhythm ST Change: No significant ST segment changes noted Arrhythmia: None Recovery ECG: Sinus Rhythm Recovery ST Change: No significant ST segment changes noted Recovery Arrhythmia: None Clinical Stress Symptoms: none Angina Score: none Rate Pressure Product: 05100 Stress ECG Conclusion 1. Resting electrocardiogram was within normal limits 2. Patient underwent testing using pharmacologic stress with regadenoson 3. Peak heart rate achieved was 65% of predicted for age 4. The electrocardiographic portion of the test was nondiagnostic 5. See MPI report Stress Test Summary STAGE HR BP SpO2 Symptoms NOTES Supine 61 162/94 1 min post Lexiscan injection 77 162/80 98% 3 min post Lexiscan injection 77 134/80 6 min post Lexiscan injection 71 138/84 MPI Conclusion Myocardial perfusion is normal. There is no ischemia or evidence of prior infarction Calculated EF is 50% with normal wall motion Radiologist Interpretation Radiologist agrees with Forensic Locksmith's Interpretation. Radiologist Interpretation by: David White MD Interpretation Date/Time: 01/01/2023 08:09:36
[2022-12-31] MEDS: Regadenoson 0.4 MG/5 ML SYR IVP (10:50)
== END 2022-12-31 00:48 ==
LOC: DI 00:28
PROVIDERS: PCP Physician Assistant; Visit Provider Physician Assistant
DX: R06.02 Shortness of breath (principal)
CPT/HCPCS: 78452; 93017; J2785

== ENCOUNTER 2023-01-13 00:45 | Outpatient (CLI) | payer OTHER, SELFPAY ==
--- NOTE | 2023-01-13 | DI.US_ITS ---
Exam(s) US CAROTID EXAM: US CAROTID CLINICAL HISTORY: ATAXIA R27.0 DIZZINESS W/ OCCASIONAL NEAR SYNCOPE. TECHNIQUE: Ultrasound carotids performed using grayscale, color-flow, and spectral Doppler imaging. COMPARISON: No priors for comparison. FINDINGS: RIGHT CAROTID ARTERY: Plaque: No calcific plaque is seen sonographically. Velocity elevation: None. LEFT CAROTID ARTERY: Plaque: No calcific plaque is seen sonographically. Velocity elevation: None. VERTEBRAL ARTERIES: Antegrade flow. Measurements: R Bulb: 83.7cm/s PS / 20.3cm/s ED R CCA: 102.5cm/s PS / 25cm/s ED R ECA: 79.6cm/s PS / 15.3cm/s ED R ICA Prox: 57.1cm/s PS / 21.6cm/s ED R ICA Mid: 74.8cm/s PS / 11.6cm/s ED R ICA Distal: 92cm/s PS /41.1cm/s ED R Vert: 29.1cm/s PS / 10.9cm/s ED R SVR: 0.9 R DVR: 1.6 L Bulb: 60.8cm/s PS / 22.7cm/s ED L CCA: 80.7cm/s PS / 24.7cm/s ED L ECA: 57.2cm/s PS / 11.8cm/s ED L ICA Prox: 67.6cm/s PS / 33.9cm/s ED L ICA Mid: 71.2cm/s PS / 26.9cm/s ED L ICA Distal: 91.7cm/s PS / 33.7cm/s ED L Vert: 39.5cm/s PS / 19.4cm/s ED L SVR: 1.1 L DVR: 1.4 IMPRESSION: No evidence for hemodynamically significant carotid stenosis. Criteria for Carotid Stenosis: Normal: ICA PSV <125 cm/s no plaque or intimal thickening is visible. <50% stenosis: ICA PSV <125 cm/s and plaque or intimal thickening is visible. 50-69% stenosis: ICA PSV is 125-250 cm/s and plaque is visible. >70% stenosis to near occlusion: ICA PSV >250 cm/s with visible plaque and luminal narrowing. DATA REPOSITORY:
== END 2023-01-13 01:05 ==
LOC: DI 00:45
PROVIDERS: PCP Physician Assistant; Visit Provider Physician Assistant
DX: R27.0 Ataxia, unspecified (principal)
CPT/HCPCS: 93880

== ENCOUNTER 2023-04-22 10:51 | Outpatient (CLI) | payer OTHER, SELFPAY ==
--- NOTE | 2023-04-22 10:15 | DI.RAD_ITS ---
Exam(s) XR SHOULDER LT COMPLETE 2+V EXAM: XR SHOULDER LT COMPLETE 2+V CLINICAL HISTORY: LEFT SHOULDER F/U. TECHNIQUE: 2D digital imaging was performed. Three views. COMPARISON: CR XR SHOULDER LT COMPLETE 2+V from 09/26/2021 FINDINGS: BONES: No acute fracture is present. No bony destructive lesion is seen. JOINTS: No dislocation present. There is been no change in the alignment of the reverse shoulder pro sthesis SOFT TISSUE: Normal. IMPRESSION: Stable appearance reverse shoulder prosthesis DATA REPOSITORY: RADIATION DOSE DELIVERED:
== END 2023-04-22 10:52 | disposition home or self-care (01) ==
LOC: DIORS 10:51
PROVIDERS: PCP Physician Assistant; Referring Provider Physician Assistant; Visit Provider Student in an Organized Health Care Education/Training Program
DX: M25.612 Stiffness of left shoulder, not elsewhere classified (principal); Z47.1 Aftercare following joint replacement surgery
CPT/HCPCS: 73030

== ENCOUNTER 2023-04-25 00:57 | Outpatient (CLI) | payer OTHER, SELFPAY ==
--- NOTE | 2023-04-25 08:14 | DI.RAD_ITS ---
Exam(s) XR CERVICAL SP BANKS TRAUMA 2-3V EXAM: XR CERVICAL SP BANKS TRAUMA 2-3V CLINICAL HISTORY: left shoulder pain, STIFFNESS LT SHOULDER JOINT, M25.612. TECHNIQUE: 2D digital imaging was performed. AP and lateral views. COMPARISON: No exams were available for comparison FINDINGS: BONES: No fracture or destructive lesion. DISKS: C2-3 disc space is maintained. Arm there is severe narrowing of the C3-4 disc space. The C4- 5 disc space is maintained. There is moderate to severe loss of height of the C5-6 disc space as wel l as prominent endplate osteophytes.. There is severe narrowing a prominent endplate osteophytes at C6-7. Facet degenerative changes are present throughout. ALIGNMENT: There is some straightening of normal cervical lordosis secondary to the degenerative manrique ges peer. The odontoid and atlantoaxial articulations are normal. SOFT TISSUE: Normal. The lung apices are clear. IMPRESSION: Advanced degenerative disc changes and facet degenerative changes peer DATA REPOSITORY: RADIATION DOSE DELIVERED:
== END 2023-04-25 01:17 ==
LOC: DI 00:58
PROVIDERS: PCP Physician Assistant; Visit Provider Student in an Organized Health Care Education/Training Program
DX: M47.812 Spondylosis without myelopathy or radiculopathy, cervical region (principal); M25.612 Stiffness of left shoulder, not elsewhere classified
CPT/HCPCS: 72040

== ENCOUNTER → 2023-05-15 02:04 | Outpatient (CLI) | payer OTHER, SELFPAY ==
--- NOTE | 2023-05-15 07:15 | DI.MRI_ITS ---
Exam(s) MR CERVICAL SPINE WO EXAM: MR CERVICAL SPINE WO CLINICAL HISTORY: PAIN,CERVICAL MYELOPATHY,M54.12,RADICULOPATHY,UNSPEC DISEASE SPINAL CORD TECHNIQUE: Multiplanar multisequence MRI of the cervical spine was performed without intravenous con trast. COMPARISON: CR XR CERVICAL SP BANKS TRAUMA 2-3V from 04/25/2023 FINDINGS: CERVICOMEDULLARY JUNCTION: Intact with no evidence of cerebellar tonsillar ectopia. No obvious abnor mality of the odontoid process. No evidence of Chiari 1 malformation. CERVICAL SPINAL CORD: There is no abnormal signal in the cervical spinal cord and no evidence of foca l cord atrophy nor focal cord swelling. OSSEOUS:There are no cervical fractures evident. No significant osseous lesions in the cervical vert ebrae. Some straightening of the cervical curvature noted. INDIVIDUAL LEVELS: C2-3: No disc herniation nor central canal stenosis. No foraminal stenosis. There are bilateral dege nerative changes, more so on the right side and mild on the left side. No foraminal stenosis on the left side. Mild foraminal stenosis on the right side. C3-4: There is advanced disc space narrowing at this level noted as well as bilateral Luschka joint o steophytes. There is no disc herniation. Central canal dimensions are normal. There are degenerati ve changes in the facet joints, also more prominent on the left side at this level. There is signifi cant bilateral foraminal stenosis related to the Luschka joint osteophytes bilaterally at this level. C4-5: Relatively preserved disc height. Mild anterolisthesis C to 4 upon C5. No disc herniation. C entral canal dimensions are normal. Facet joints exhibit moderate symmetrical degenerative changes b ilaterally. Fights evident at this level. There is mild bilateral foraminal stenosis related to the facet arthropathy. C5-6: This level exhibits chronic disc space narrowing and small bilateral Luschka joint osteophytes. Mild symmetrical annular bulging without a dominant disc herniation. Central canal dimensions are lower normal. At this level there is minimal if any significant degenerative change in the facet leslie nts. There is mild bilateral foraminal stenosis at this level due to the Luschka joint osteophytes. C6-7: This level exhibits chronic disc space narrowing. Some posterior annular bulging and bony ridg ing resulting in mild central canal stenosis at this level. There are bilateral Luschka joint osteop hytes. However, there are only minimal degenerative changes in the facet joints bilaterally at this level. Mild-final stenosis which is related to the Luschka joint osteophytes. C7-T1: This level exhibits chronic advanced disc space narrowing. No Luschka joint osteophytes. No disc herniation or central canal stenosis evident. Facet joints at this level exhibit mild degenerat steve changes, slightly more so on the left side. There is no foraminal stenosis on either side at thi s level. T1-T2: Chronic disc space narrowing. There is a posterolateral right small disc protrusion at this l evel extending posteriorly 3 millimeters and approximately 4 millimeters wide, indenting the right-si de of the thecal sac. No significant facet arthropathy noted at this level. No significant foramina l stenosis on either side at this level. IMPRESSION: 1. Multilevel degenerative disc disease findings findings as described individually above. However, there is no dominant disc herniation in the cervical spinal canal nor prominent central canal stenosi s. There is multilevel mild foraminal stenosis which is mostly related to Luschka joint osteophytes evident at multiple levels. 2. Incidentally noted is a posterolateral right disc protrusion at T1-2 level seen on the lower most aspect of the field of view of this cervical MRI study. 3. No significant osseous lesions evident. No abnormal signal in the cervical spinal cord and no calli dence of cord atrophy nor focal cord swelling. No evidence of syringomyelia. DATA REPOSITORY:
== END ==
PROVIDERS: PCP Physician Assistant; Visit Provider Student in an Organized Health Care Education/Training Program
DX: M50.121 Cervical disc disorder at C4-C5 level with radiculopathy; M50.122 Cervical disc disorder at C5-C6 level with radiculopathy; M50.123 Cervical disc disorder at C6-C7 level with radiculopathy; M51.24 Other intervertebral disc displacement, thoracic region
CPT/HCPCS: 72141

== ENCOUNTER 2023-05-19 16:32 | Outpatient (REF) | payer OTHER, SELFPAY ==
[2023-05-19 16:40] LABS: BUN 24 mg/dL (7-18); CREATININE 1.3 mg/dL (0.70-1.30); Calcium 8.8 mg/dL (8.5-10.1); Calculated LDL 87 mg/dL (<100); Chloride 108 mmol/L (98-107); Cholesterol 144 mg/dL (<200); Estimated GFR 58.37 (mL/min/1.73m2); Glucose 97 mg/dL (74-106); HDL Cholesterol 38 mg/dL (40-60); Potassium 4.5 mmol/L (3.5-5.1); Sodium 142 mmol/L (136-145); Triglyceride 95 mg/dL (<150)
== END 2023-05-19 16:33 | disposition home or self-care (01) ==
LOC: NCHCN 16:32
PROVIDERS: PCP Physician Assistant; Visit Provider Physician Assistant
DX: I10 Essential (primary) hypertension (principal)
CPT/HCPCS: 80048; 80061

== ENCOUNTER → 2023-05-21 00:55 | Outpatient (CLI) | payer OTHER, SELFPAY ==
--- NOTE | 2023-05-21 | DI.RAD_ITS ---
Exam(s) XR LUMBAR SPINE COMPLETE EXAM: XR LUMBAR SPINE COMPLETE CLINICAL HISTORY: ATAXIA, R27.0, CHRONIC BACK PAIN/LEG WEAKNESS. TECHNIQUE: 2D digital imaging was performed. Five views. COMPARISON: CR LUMBAR SPINE AP, LAT from 12/14/2010 FINDINGS: BONES: No fracture or destructive lesion. Vertebral body heights are maintained. facet hypertrophy g reatest at L4-5 and L5-S1.. Left hip prosthesis DISKS: Severe narrowing of the L4-5 disc space. Mild narrowing of the of the L2-3, L3-4 and L5-S1 di sc spaces. Small endplate osteophytes noted throughout. Findings have progressed somewhat since the previous exam. ALIGNMENT: No spondylolysis or spondylolisthesis. SOFT TISSUE: Normal. IMPRESSION: Degenerative changes, greatest at L4-5. DATA REPOSITORY: RADIATION DOSE DELIVERED:
== END ==
PROVIDERS: PCP Physician Assistant; Visit Provider Physician Assistant
DX: M51.37 Other intervertebral disc degeneration, lumbosacral region (principal); M54.50 Low back pain, unspecified; R27.0 Ataxia, unspecified
CPT/HCPCS: 72110

== ENCOUNTER → 2023-07-03 00:06 | Outpatient (CLI) | payer OTHER, SELFPAY ==
--- NOTE | 2023-07-03 10:45 | DI.MRI_ITS ---
Exam(s) MR LUMBAR SPINE WO EXAM: MR LUMBAR SPINE WO CLINICAL HISTORY: CHRONIC BACK PAIN, M54.9. TECHNIQUE: Multiplanar multisequence MRI of the Lumbar spine was performed. COMPARISON: CR XR LUMBAR SPINE COMPLETE from 05/21/2023 FINDINGS: Bones: The last intervertebral disc space is designated the L5/S1 level for the numbering purpose of this examination. The vertebral body heights are well maintained. Alignment is satisfactory. There are endplate degenerative signal changes present. Cord: The conus tip ends at the T12 level. It is of normal size and signal intensity. T12-L1: No disc herniations or bulges are present. No central spinal canal or neural foraminal stenos is. L1-2: No disc herniations or bulges are present. No central spinal canal or neural foraminal stenosis . L2-3: There is a diffuse disc bulge. There are hypertrophic changes of the ligamentum flavum. No si gnificant central spinal canal stenosis is seen. There is mild narrowing of the neural foramen. L3-4: There is a diffuse disc bulge. There are degenerative changes of the facets. No significant c entral spinal canal stenosis is seen. There is mild bilateral neural foraminal stenosis. L4-5: There is a diffuse disc bulge. There are hypertrophic changes of the facets and ligamentum fla vum. The findings result in marked central spinal canal stenosis. Imbb-xe-porgckdb bilateral neural foraminal stenosis is present. L5-S1: There is a diffuse disc bulge. There are hypertrophic changes of the facets and ligamentum fl avum. No significant central spinal canal stenosis. Ftaz-xe-keskrvtr bilateral neural foraminal lucero nosis is seen. Soft tissues: The visualized SI joints and sacrum are well maintained. The paraspinal soft tissues ar e unremarkable. Visualized abdominal organs: The left kidney is absent. IMPRESSION: 1. Multilevel degenerative changes are seen in the lumbar spine. 2. The findings are most marked at the L4-5 level where there is marked central spinal canal stenosis and uetg-av-pzasbpsn bilateral neural foraminal stenosis. DATA REPOSITORY:
== END ==
PROVIDERS: PCP Physician Assistant; Visit Provider Physician Assistant
DX: M51.36 Other intervertebral disc degeneration, lumbar region (principal); M99.63 Osseous and subluxation stenosis of intervertebral foramina of lumbar region
CPT/HCPCS: 72148

== ENCOUNTER 2024-07-19 16:45 | Outpatient (REF) | payer OTHER, SELFPAY ==
--- OUTSIDE RECORDS SUMMARY | 2024-07-19 16:47 | XMS_ITS | Encounter Summary ---
Author Organization [facility] Address [facility] [address] [place] [address] Care Team Providers Care Ems Coordinator Name Role Phone Harjit Mcneil Primary Care Provider [phone] Reason for Referral * Physical Therapy (Routine) - Closed Specialty Diagnoses / Procedures Referred By Contac t Referred To Contact Physical Therapy Diagnoses Spinal stenosis, lumbar region with neurogenic claudication Difficulty walking Kyle Danielson MD [facility] [place] [address] Unknown None Referral ID Status Reason Start Date Expiration Date V isits Requested Visits Authorized [id number] Closed Evaluate and Treat Non PCP 12/02/2023 05/30/2024 12 12 Reason for Visit * Reason Comments Establish Care Back Pain Lower back, going do wn legs at times * Consultation (Routine) - Closed Specialty Diagnoses / Procedures Referred By Contac t Referred To Contact [facility] Sp[facility] Center Diagnoses Spinal stenosis, lumbar region with neurogenic claudication Nina Redmond APRN [facility] [place] [address] [facility] [place] [address] Referral ID Status Reason Start Date Expiration Date Visits Requested Visits Authorized [id number] Closed Pain Interventional Procedure 3 09/17/2024 1 1 Encounter Details Date Type Department Care Team (Late st Contact Info) Description 12/02/2023 11:00 AM EDT Office Visit [facility] [place] [address] Kyle Danielson MD [facility] [place] [phone] Spinal stenosis, lumbar region with neurogenic claudication; Difficulty walking; Lumbar facet arthropathy; Chronic pain syndrome Social History Tobacco Use Types Packs/Day Years Used Date Smoking Tobacco: Former Cigarettes Q uit: 05/28/1970 Smokeless Tobacco: Never Alcohol Use Standard Drinks/Week Comments No 0 (1 standard drink = 0.6 oz pur e alcohol) Sex and Gender Information Value Date Recorded Sex Assigned at Not on file Gender Identity Not on file Sexual Orientation Not on file documented as of this encounter Last Filed Vital Signs Vital Sign Reading Time Taken Comments Blood Pressure 140/84 12/02/2023 10:36 AM EDT Pulse 69 12/02/2023 10:36 AM EDT Temperature - - Respiratory Rate - - Oxygen Saturation - - Inhaled Oxygen Concentration - - Weight 95.3 kg (210 lb) 12/02/2023 10:36 AM EDT Height 172.7 cm (5' 8) 12/02/2023 10:36 AM EDT Body Mass Index 31.93 12/02/2023 10:36 AM EDT documented in this encounter Progress Notes * Eduardo Bautista MD - 12/02/2023 11:00 AM EDT [facility] Initial Consultation Note Name: Shree Ortez Jr. : 1950 Consulting Physician/Provider: Seeing at the request of Nina Redmond APRN [facility] [place] [address] Chief Complaint: Low back pain History of Present Illness: Shree Ortez Jr. is a 73 y.o. male with a history of nephrectomy who presents with low back pain. He reports back pain for roughly 6 months. The pain is sometimes tolerable and often excruciating. It is exacerbated by lifting. He describes the pain as middle of the low back, sometimes radiating to the left side. He has a prior left hip replacement. Occasional pain shooting down the legs all theway to the foot, more on the left. He also reports difficulties with balance, and feels like walking even very short distances is extremely difficult not only due to pain but due to balance. He says he lives alone and sometimes feels unsteady in the middle of the night getting up to urinate. Ms. Redmond recommended he be seen in [facility] since it is closer to his house. He said there was lots of difficulty getting the referral sent to [facility], and it took many weeks to hear back. Then finally they said they had no openings until January. So he decided to come to [facility] instead. Last note from Nina Redmond, RECRUIT INSTRUCTOR 09/18/23 Shree Ortez Jr. is a pleasant 73 y.o. male seen today for a chief complaint of predominantly axial lower back pain likely associated with degenerative facet changes spanning L4-S1. His lower extremity symptoms are likely associated with L4-5 central canal stenosis. I would recommend at this point targeting the stenosis with an L4-5 epidural steroid injection. He may do reasonably well with potential progression of MBB/RFA process but I would like to evaluate how he responds to the JORGE first.If this significantly improves his overall discomfort we can hold there and see how long it lasts. Of note, at the end of the visit, the patient requested that interventional injection treatment be performed at [facility]. I think this is quite reasonable and will make a referral to Dr. Navarro. I am available to see the patient after his work with Dr. Navarro is completed. Functional Goals of Treatment: decrease pain and increase function Onset/Context of pain: Pain Location: Low mid back, sometimes to the left Onset: Constant Quality and timing of pain: Dull, aching, burning, sharp intermittently Radiation: Down posterior of both legs intermittently, left worse than right Pain Ratin (Last 7 days: Lowest 5 Highest 10) Aggravating Factors: bending, lifting Relieving Factors: Tylenol, sometimes rest Numbness/Tingling: Sometimes in BL calf/foot Sleep: Disrupted by polyuria, then exacerbates back pain Red flag symptoms: Bowel and bladder: No loss of control Saddle anesthesia: Denies Weakness: Denies Pertinent History: h/o Thrombocytopenia/bleeding tendency/platelet dysfunction: No h/o Liver disease/abnormal liver function: No h/o Chronic kidney disease (CKD)/abnormal kidney function: Yes, solitary kidney, s/p nephrectomy Patient on dialysis: no h/o Diabetes: No Anticoagulation/Aspirin: No Current pain treatments include: Tylenol PRN - helpful Conservative Treatment: NSAIDS: NONE Helpful? Told not to use given nephrectomy Acetaminophen: Yes Helpful? Yes Antiepileptics: Gabapentin Helpful? 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 No History of Interventional Procedures/Surgery: Prior Surgery: No Injection History (date, procedure, %improvement): None Chart review: Today I have reviewed available medical information in the patient's medical record at [facility]), including relevant provider notes, laboratory work, and imaging. Historical Review: I have reviewed the patient's past medical, surgical, social, and family history available in the EMR at this time along with supplemented information provided by the patient during the interview process today. Pertinent findings: Tobacco: Social History Tobacco Use Smoking Status Former Types: Cigarettes Quit date: 05/28/1970 Years since quittin.5 Smokeless Tobacco Never Alcohol: Social History Substance and Sexual Activity Alcohol Use No Recreational drug use: None Work: retired Legal issues (WC/MVA, etc): None Housing: Lives alone Medications and list of allergies: Medications and allergies were reviewed, reconciled and updated in the electronic medical record. ROS: Positive for above mentioned musculoskeletal and neurological findings on 14 point system review. Areas of disrupted skin integrity/wounds/lesions: No Denies any other constitutional symptoms, fevers, or weight changes. Physical Exam: Blood pressure 140/84, pulse 69, height 172.7 cm (5' 8), weight 95.3 kg (210 lb). Pain: 5 (Last 7 days: Lowest 5 Highest 10) General: Well-nourished, well-developed, male in no distress Respiratory: Non-labored breathing pattern on RA. No respiratory distress Cardiovascular: No edema or cyanosis. 2+ peripheral pulses Skin: No appreciable rashes or skin breakdown Psych: Appropriate affect, answers questions appropriately Musculoskeletal: Inspection - No gross spinal deformity noted. Palpation - No TTP of lumbar spine or paraspinal muscles ROM - Lumbar Flexion , Extension is severely limited and stiff. He reports mild pain but more concerns of balance while ranging. Special tests: - SI Joint provocative testing is Negative bilaterally via Pelvic Distraction, Lateral iliac Compression, and Thigh Thrust - Facet loading in the Lumbar spine is Equivocal bilaterally - Straight Leg Raise Positive on the left - Hip ROM is WNL bilaterally. FADIR is Negative bilaterally Diffusely very stiff lower extremities. Very resistant to passive RoM. Neurologic: Motor: 5/5 throughout all muscle groups of the upper extremities and lower extremities Reflexes: Segment Reflex Right Left L3-4 Patella 2+ 2+ S1-2 Achilles 2+ 2+ Upper Motor Neuron Signs: Clonus is not present bilaterally (0=absent, 1=slight response, 2=brisk/normal, 3=very brisk, 4=clonus) Sensory - Intact to light touch and pinprick at bilateral upper and lower extremities. Allodynia isnot present. Hyperalgesia is not present. Gait/Station - Slow, shuffling gate. Appears unsteady. Unable to toe/heel stand. Very slow to transfer from chair. Diagnostic Tests: Most recent Lumbar Spine MRI was completed on 07/03/23 at Outside Facility [facility] . In addition to the formal radiology read, I independently reviewed the imaging and shared my interpretation with the patient. The impression is: L4-S1 central canal stenosis Assessment: #1 chronic bilateral low back predominantly axial pain, likely related to lumbar facet arthropathy with a minor component of lumbar spinal stenosis and neurogenic claudication. MRI of lumbar spine demonstrates severe L4-L5 spinal canal stenosis. No surgeries have been recommended at this point by spine surgery. Patient was educated about signs and symptoms of cauda equina syndrome including new numbness, weakness, bladder bowel incontinence or saddle anesthesia. Patient was instructed to call us or go to the emergency room if they experiences any of the symptoms. Patient verbalized understanding. #2 chronic and gradually worsening balance problems, shuffling gait and bradykinesia. Recommend that primary care team consider a neurology referral for further evaluation. These recommendations werediscussed with patient verbalized understanding and stated that he will call his primary care provider to discuss the neurology referral. #3 physical deconditioning Summary of Conservative Treatment Response: Has not recently participated in physical therapy. Plan/Recommendations: We reviewed etiology, predisposing factor(s), natural course, imaging results as well as treatment options including medications, physical therapy/exercise, therapeutic injections, and surgery. The risks, consequences, alternatives, and benefits of various treatment options were discussed with the patient in great detail. We have discussed and recommended the following: - Physical Therapy/Modalities/DME: Patient would benefit from Physical Therapy and a referral was provided for the patient. - Interventional/Surgical Procedures: Pending response to physical therapy and possible referrals, may consider MBB in the future. Could also consider LESI but currently patient seems more bothered by bending/twisting maneuvers. - Referrals: Recommend patient contact PCP for further workup of balance issues, including possibleneurology evaluation. - Activity: as tolerated - Follow-up: Telephone 2-3 months. Thank you for allowing us the opportunity to participate in Shree Ortez 's care. Eduardo Bautista MD Assessment and plan discussed with the attending physician Dr. Danielson. I have seen and examined the patient and reviewed the fellow's above history and agree with the details as written. The assessment and plan were formulated in discussion with me, and I agree with them as documented. Kyle Danielson MD [facility] Finisher of Anesthesiology [facility] [address] [address] / [facility] CC: Nina Redmond, VERONICA [facility] [address] [place] [address] documented in this encounter Plan of Treatment Scheduled Procedures Name Priority Associated Diagnoses Date/Ti me EGD, UPPER GI ENDOSCOPY (WRV U 2.09) Esophageal dysphagia Encounter for colorectal cancer screening COLONOSCOPY, DIAGNOSTIC (WRV U 3.26) Esophageal dysphagia Encounter for colorectal cancer screening Scheduled Referrals Name Type Priority Associated Diagnoses Orde r Schedule Referral to Physical Therapy Outpatient Referral Routine Spinal stenosis, lumbar region with neurogenic claudication Difficulty walking Ordered: 12/02/2023 documented as of this encounter Visit Diagnoses Diagnosis Spinal stenosis, lumbar region with neurogenic claudication Difficulty walking Difficulty in walking Lumbar facet arthropathy Lumbosacral spondylosis without myelopathy Chronic pain syndrome documented in this encounter Care Teams Ems Coordinator Relationship Specialty Start Date End Date Harjit Mcneil PA [address] [place] [address] PCP - General Internal Medicine 07/11/23 documented as of this encounter
--- OUTSIDE RECORDS SUMMARY | 2024-07-19 16:47 | XMS_ITS | Encounter Summary ---
Author Organization [facility] Address [facility] [address] [place] [address] Care Team Providers Care Segment Producer Name Role Phone Norma Murdock APRN Primary Care Provider [phone] Encounter Details Date Type Department Care Team (Late st Contact Info) Description 11/05/2021 3:00 PM EST Office Visit General Surgery at [facility] [place] [id number] Flash Rivas MD [facility] [place] [address] Discomfort of left groin Social History Tobacco Use Types Packs/Day Years [...] Sign Reading Time Taken Comments Blood Pressure 162/97 11/05/2021 2:52 PM EST Pulse 88 11/05/2021 2:52 PM EST Temperature 37 ??C (98.6 ??F) 11/05/2021 2:52 PM EST Respiratory Rate 22 11/05/2021 2:52 PM EST Oxygen Saturation 97% 11/05/2021 2:52 PM EST Inhaled Oxygen Concentration - - Weight 96.3 kg (212 lb 6.4 oz) 11/05/2021 2:52 P M EST Height 172.7 cm (5' 7.99) 11/05/2021 2:52 PM ES T Body Mass Index 32.3 11/05/2021 2:52 PM EST documented in this encounter Progress Notes * Flash Rivas MD - 11/05/2021 3:00 PM EST Mr. Ortez returns to clinic today's after recent ultrasound. He continues to have some left groin discomfort but not severe and not constant but is bothersome. This is not changed. Examination today is deferred Ultrasound is negative for any sonographic evidence of recurrent or new hernia even with Valsalva and bearing down. Assessment/plan: Mr. Ortez is a very pleasant 71-year-old male status post a left open inguinal hernia repair in 2014 who is developed some groin discomfort of an achy nature intermittently over thelast year. Both physical examination and ultrasonography are negative for recurrence. I did offer further evaluation with MRI of pelvis where he interested but he is not at the present time. I therefore recommended that he call at anytime if new questions concerns or changes were to arise or if he would like to move forward with further evaluation (S). He is in agreement with this plan. documented in this encounter Plan of Treatment Scheduled Procedures Name Priority Associated Diagnoses Date/Ti me EGD, UPPER GI ENDOSCOPY (WRV U 2.09) Esophageal dysphagia Encounter for colorectal cancer screening COLONOSCOPY, DIAGNOSTIC (WRV U 3.26) Esophageal dysphagia Encounter for colorectal cancer screening documented as of this encounter Visit Diagnoses Diagnosis Discomfort of left groin documented in this encounter Care Teams Segment Producer Relationship Specialty Start Date End Date Norma Murdock APRN [address] [place] [address] PCP - General Family Medicine 05/22/20 07/10/23 documented as of this encounter
--- OUTSIDE RECORDS SUMMARY | 2024-07-19 16:47 | XMS_ITS | Encounter Summary ---
Author Organization [facility] [place] [address] Care Team Providers Care Shrimp Pond Laborer Name Role Phone Norma Murdock VERONICA Primary Care Provider [phone] Encounter Details Date Type Department Care Team (Late st Contact Info) Description 05/21/2023 Ancillary Procedure Radiology Library at [facility] [place] [address] Nina Redmond APRN [facility] PAIN [facility]NA[facility] [place] [address] Social History Tobacco Use Types Packs/Day Years Used Date Smoking Tobacco: Former Cigarettes Q uit: 05/28/1970 Smokeless Tobacco: Never Alcohol Use Standard Drinks/Week Comments No 0 (1 standard drink = 0.6 oz pur e alcohol) Sex and Gender Information Value Date Recorded Sex Assigned at Not on file Gender Identity Not on file Sexual Orientation Not on file documented as of this encounter Plan of Treatment Scheduled Procedures Name Priority Associated Diagnoses Date/Ti me EGD, UPPER GI ENDOSCOPY (WRV U 2.09) Esophageal dysphagia Encounter for colorectal cancer screening COLONOSCOPY, DIAGNOSTIC (WRV U 3.26) Esophageal dysphagia Encounter for colorectal cancer screening documented as of this encounter Procedures Procedure Name Priority Date/Time Associated Diagnosis Comments FILM LIBRARY STORAGE ONLY DX SPINE Routine 05/21/2023 12:00 AM EDT documented in this encounter Results * Film Library- Storage Only DX Spine (05/21/2023 12:00 AM EDT) Narrative [facility] - 08/20/2023 12:12 AM EST This exam is auto-finalizing. It's purpose is for storage only. Nina Aparicio Redmond GRIZZLYMAN IMG FILM LIBRARY OR DERABLES [place], [place] documented in this encounter Visit Diagnoses Not on filedocumented in this encounter Care Teams Shrimp Pond Laborer Relationship Specialty Start Date End Date Norma Murdock APRN [address] [place] [address] PCP - General Family Medicine 05/22/20 07/10/23 documented as of this encounter
--- OUTSIDE RECORDS SUMMARY | 2024-07-19 16:47 | XMS_ITS | Encounter Summary ---
Author Organization [facility] [place] [address] Care Team Providers Care Sas Programmer Analyst Name Role Phone Norma Murdock VERONICA Primary Care Provider [phone] Encounter Details Date Type Department Care Team (Late st Contact Info) Description 07/03/2023 Ancillary Procedure Radiology Library at [facility] [place] [phone] Nina Redmond APRN [facility] [place] [address] Social History Tobacco Use Types Packs/Day Years [...] Associated Diagnosis Comments FILM LIBRARY STORAGE ONLY MR SPINE Routine 07/03/2023 12:00 AM EDT documented in this encounter Results * Film Library- Storage Only MR Spine (07/03/2023 12:00 AM EDT) Narrative [facility] - 08/20/2023 12:10 AM EST This exam is auto-finalizing. It's purpose is for storage only. Nina Aparicio Redmond PUTTY AND PATCH WORKER IMG FILM LIBRARY OR DERABLES [place], [place] documented in this encounter Visit Diagnoses Not on filedocumented in this encounter Care Teams Sas Programmer Analyst Relationship Specialty Start Date End Date Norma Murdock APRN [address] [place] [address] PCP - General Family Medicine 05/22/20 07/10/23 documented as of this encounter
--- OUTSIDE RECORDS SUMMARY | 2024-07-19 16:47 | XMS_ITS | Encounter Summary ---
Author Organization [facility] Address [facility] [address] [place] [address] Care Team Providers Care Belling Machine Operator Name Role Phone Tarun Harjit URIAS Primary Care Provider Reason for Visit * Reason Comments Follow Up Surgery L JOHN ANT, DOS Encounter Details Date Type Department Care Team (Late st Contact Info) Description 02/04/2024 3:00 PM EDT Office [place] [phone] Ilya Peterson MD [facility] [place] [address] Status post total replacement of left hip Social History Tobacco Use Types Packs/Day Years [...] Sign Reading Time Taken Comments Blood Pressure - - Pulse - - Temperature - - Respiratory Rate - - Oxygen Saturation - - Inhaled Oxygen Concentration - - Weight 95.3 kg (210 lb) 02/04/2024 2:28 PM EDT Height 172.7 cm (5' 8) 02/04/2024 2:28 PM EDT Body Mass Index 31.93 02/04/2024 2:28 PM EDT documented in this encounter Progress Notes * Kellee Nguyen MD - 02/04/2024 3:00 PM EDT Arthroplasty/Orthopaedic History: Left JOHN - 01/15/17 - Dr. Montague Left reverse TSA in [facility] 2019 HPI: Shree Ortez Jr. is a very pleasant 73 y.o. year-old male and is now 7 years post left totalhip replacement. The patient has been doing well overall except that he is dealing with back pain that radiates into his left buttock, lateral thigh and down the lower leg from lumbar spinal stenosis. He has issues with balance and gait. He is using a walker for the past few weeks for stability. Heis doing PT for his back pain. He occasionally has groin pain, thought it was related to a hernia he had repaired many years ago. This has been present for several years. These episodes can last for up to days at a time. Not worsewith weight-bearing or ambulating. He notes the pain is worse with heavy lifting. He has been wood working and building a wooden structure on his property. He occasionally takes Tylenol for pain. Sometimes the groin pain bothers him enough to take Tylenolbut he is not taking it daily. Not taking any other pain medications. No fevers, chills, nausea, vomiting, or symptoms of infections. ROS: Denies: fever, chills, night sweats, nausea, or vomiting No data found. Physical Exam: Well-appearing male in no acute distress. Alert and Oriented x 3 and answers all questions appropriately. Hip Exam: Left Leg Length: Longer leg: equal Limb Length discrepancy: 0cm Motion: Flexion contracture: 0 Total degrees of Flexion: 125 Total degrees of Abduction: 25 Total degrees of Ext Rotation: 20 Total degrees of Internal Rotation: 15 Gait Abnormality: slow, broad based Pulses Palpable: Left PT: wearing boots, did not test Left DP: wearing boots, did not test Motor/Sensory: Left Distal Motor: Normal Distal Sensory: Normal Hip Abductors: 5 X-RAYS: Multiple radiographic views were obtained at my request and reviewed with Shree. X-rays show a well-placed prosthesis with no evidence of fracture, subsidence, loosening, or periprosthetic complication. Questionnaire Responses: 01/01/2018 10:43 AM [facility] Surgical Postop Visit Pain in other HIP None Back pain at this moment Very mild 01/01/2018 10:41 AM [facility] Response HOOS JR Scores 64.66 01/01/2018 10:41 AM Spine [facility] Response HOOS JR Scores 64.66 ASSESSMENT/PLAN: Mr. Ortez is a 73 y.o. year old male 7 years status post left total hip replacement. Doing well postoperatively. Able to do all of his normal activities. Suspect that his back and hip pain are related to his underlying L2- L3 lateral recess and foraminal stenosis for which he is being treated. Continue weightbearing as tolerated and working on range of motion. We will see him back in 5 years for repeat examination. New X-rays will be needed at that time. Patient may return to normal activities as his pain and function allow. According to the AAOS Appropriate Use Criteria we do not recommend antibiotic use prior to dental procedures for Shree. Denies cancer, PJI, immunosuppressive drug or condition, DM. Says he has surgical adentition. Has only 1 kidney. antibiotic: N/A If Shree has any changes in health status we recommend he contact our office prior to dental procedures for updated recommendations All questions were answered. Signed: Kellee Nguyen MD 02/04/2024 * Ilya Peterson MD - 02/04/2024 3:00 PM EDT I performed a history and physical examination of the patient and discussed the management plan with Kellee Nguyen MD. I also discussed the different treatment options, as well as the risks andbenefits of each with the patient and questions were answered. I reviewed the note and agree with the documented findings and plan of care. Ilya Peterson MD 02/20/2024 documented in this encounter Plan of Treatment Scheduled Procedures Name Priority Associated Diagnoses Date/Ti me EGD, UPPER GI ENDOSCOPY (WRV U 2.09) Esophageal dysphagia Encounter for colorectal cancer screening COLONOSCOPY, DIAGNOSTIC (WRV U 3.26) Esophageal dysphagia Encounter for colorectal cancer screening documented as of this encounter Visit Diagnoses Diagnosis Status post total replacement of left hip documented in this encounter Care Teams Belling Machine Operator Relationship Specialty Start Date End Date Harjit Mcneil PA [address] [place] [address] PCP - General Internal Medicine 07/11/23 documented as of this encounter
--- OUTSIDE RECORDS SUMMARY | 2024-07-19 16:47 | XMS_ITS | Encounter Summary ---
Author Organization [facility] [address] [place] [address] Care Team Providers Care Etcher Aircraft Name Role Phone Harjit Mcneil Primary Care Provider [phone] Reason for Visit * Auth/Cert (Routine) Specialty Diagnoses / Procedures Referred By Ugo t Referred To Contact Diagnoses Spinal stenosis, lumbar region with neurogenic claudication Radiculopathy of lumbar region lumbar spinal stenosis with neurogenic claudication, lumbar radiculopathy Procedures PRO INJECTION DX/THER SBST INTRLMNR LMBR/SAC W/IMG GDN INJECTION, EPIDURAL, LUMBAR OR SACRAL (CAUDAL), WITH IMAGING GUIDANCE (WRVU 1.8) Kyle Danielson MD [facility] [place] [address] [facility] Referral ID Status Reason Start Date Expiration Date Visits Re quested Visits Authorized [id number] 1 1 Encounter Details Date Type Department Care Team (Late st Contact Info) Description 04/07/2024 1:15 PM EDT Ancillary [place] [address] Kyle Danielson MD [facility] [place] [address] Social History Tobacco Use Types Packs/Day Years [...] Associated Diagnosis Comments FILM LIBRARY STORAGE ONLY PAIN CLINIC C ARM Routine 04/07/2024 2:36 PM EDT documented in this encounter Results * Film Library- Storage Only pain Clinic C-Arm (04/07/2024 2:36 PM EDT) Narrative [facility] - 04/07/2024 2:36 PM EDT See PACS for result report. Kyle Danielson MD G FILM LIBRARY ORD ERABLES [place], [place] documented in this encounter Visit Diagnoses Not on filedocumented in this encounter Care Teams Etcher Aircraft Relationship Specialty Start Date End Date Harjit Mcneil PA [address] [place] [address] PCP - General Internal Medicine 07/11/23 documented as of this encounter
--- OUTSIDE RECORDS SUMMARY | 2024-07-19 16:47 | XMS_ITS | Encounter Summary ---
Author Organization [facility] [address] [place] [address] Care Team Providers Care Riveting Machine Operator Name Role Phone Tarun Harjit BRIDGETT Primary Care Provider [phone] Encounter Details Date Type Department Care Team (Late st Contact Info) Description 01/22/2024 Orders [place] [phone] Ilya Peterson MD [facility] [place] [address] Status post total replacement of left hip [...] cancer screening documented as of this encounter Results * XR Pelvis and Hip 2 Views Left (02/04/2024 1:40 PM EDT) WORKSTATION ID [id number] RAD Anatomical Region Laterality Modality Pelvis, Hip Left Digital Radiogra phy Impressions 02/05/2024 10:21 AM EDT LEFT Unchanged and Uncomplicated total hip arthroplasty Thank you for letting us participate in the care of this patient. ??If you are a health care provider and have any questions regarding this report, please contact the number below. ??For patients who have questions please contact the health career placement services counselor that requested your imaging first. ? Electronically signed by: Elizabeth Santillan MD, [facility] ([phone]), at 02/05/2024 10:21 AM Narrative 02/05/2024 10:21 AM EDT EXAMINATION: XR PELVIS AND HIP 2 VIEWS LEFT CLINICAL HISTORY: Hx Left JOHN Z96.642, Presence of left artificial hip joint TECHNIQUE: 3 views of the pelvis and hip(s) AP lower pelvis LEFT hip, 2 views, one view COMPARISON: Pelvic radiographs, 2020. FINDINGS: LEFT hip, 2 views A total hip arthroplasty is present. Alignment: The prosthesis is unchanged in alignment. Complication: There is no loosening or fracture. AP lower pelvis No acute fracture or periostitis. RIGHT hip, one view moderate to severely narrowed joint space with small osteophytes and subchondral cysts. Soft tissues: No soft tissue air or foreign body detected. Procedure Note Elizabeth Santillan MD - 02/05/2024 EXAMINATION: XR PELVIS AND HIP 2 VIEWS LEFT CLINICAL HISTORY: Hx Left JOHN Z96.642, Presence of left artificial hip joint TECHNIQUE: 3 views of the pelvis and hip(s) AP lower pelvis LEFT hip, 2 views, one view COMPARISON: Pelvic radiographs, 2020. FINDINGS: LEFT hip, 2 views A total hip arthroplasty is present. Alignment: The prosthesis is unchanged in alignment. Complication: There is no loosening or fracture. AP lower pelvis No acute fracture or periostitis. RIGHT hip, one view moderate to severely narrowed joint space with small osteophytes andsubchondral cysts. Soft tissues: No soft tissue air or foreign body detected. IMPRESSION LEFT Unchanged and Uncomplicated total hip arthroplasty Thank you for letting us participate in the care of this patient. If youare a health care provider and have any questions regarding this report,please contact the number below. For patients who have questions please contactthe health career placement services counselor that requested your imaging first. 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
--- OUTSIDE RECORDS SUMMARY | 2024-07-19 16:47 | XMS_ITS | Encounter Summary ---
Author Organization [facility] [place] [address] Care Team Providers Care Regulatory Administrator Name Role Phone Harjit Mcneil Primary Care Provider [phone] Reason for Referral * Consultation (Routine) - Closed Specialty Diagnoses / Procedures Referred By Contac t Referred To Contact Pain and Spine Center Diagnoses Spinal stenosis, lumbar region with neurogenic claudication Nina Redmond APRN [facility] [place] [address] [facility] [place] [address] Referral ID Status Reason Start Date Expiration Date Visits Requested Visits Authorized [id number] Closed Pain Interventional Procedure 3 09/17/2024 1 1 Reason for Visit * Reason Comments Back Pain Lower back pain * Consultation (Routine) - Closed Specialty Diagnoses / Procedures Referred By Contac t Referred To Contact [facility] and Spine Center Diagnoses Chronic back pain, unspecified back location, unspecified back pain laterality chronic low back pain/ imaging Harjit Mcneil PA [address] [place] [address] [facility] [place] [address] Referral ID Status Reason Start Date Expiration Date V isits Requested Visits Authorized [id number] Closed Consult, Test & Treat PCP Updated and/or Approved 07/07/2023 07/07/2024 12 12 Encounter Details Date Type Department Care Team (Late st Contact Info) Description 09/18/2023 1:00 PM EST Office Visit [place] [address] Nina Redmond APRN [facility] [place] [address] Spinal stenosis, lumbar region with neurogenic claudication Social History Tobacco Use Types Packs/Day Years [...] - Inhaled Oxygen Concentration - - Weight 92.1 kg (203 lb) 09/18/2023 12:54 PM EST Height 172.7 cm (5' 8) 09/18/2023 12:54 PM EST Body Mass Index 30.87 09/18/2023 12:54 PM EST documented in this encounter Progress Notes * Nina Redmond APRN - 09/18/2023 1:00 PM EST [facility] Medical Decision Making: Shree Ortez Jr. is a pleasant 73 [...] that interventional injection treatment be performed at [facility]. I think this is quite reasonable and will make a referral to Dr. Navarro. I am available to see the patient after his work with Dr. Navarro is completed. Diagnosis: ICD-10-CM 1. Spinal stenosis, lumbar region with neurogenic claudication M48.062 Referral to Pain Management Plan Referral to [facility] pain clinic for consideration of an L4-5 JORGE Happy to see the patient back when the above is completed but will defer to Dr. Navarro at this point. HPI Shree Ortez Jr. is a 73 y.o. male seen in referral today upon the request of Harjit Mcneil for evaluation of a chief complaint of chronic lower back pain with altered overall balance and lower extremity weakness bilaterally. In review of the referral documentation, the patient does have ataxia with an unclear etiology. He has reported an unsteady gait as well as bilateral lower extremity weakness. Subsequently, he was referred here for further evaluation. Today, the patient reports his symptoms been present for several years but he has noticed worseningover the past 6 months. He does have radicular symptoms to the bilateral lower extremities but the lower back pain seems to be the most bothersome. He also mentions that he essentially has pain fromhead to toe. The lower extremity radicular symptoms most closely follow an L5-S1 pattern. He has numbness and tingling fairly globally to the feet and toes. He does feel a vague sense of weakness tothe bilateral lower extremities but no pronounced symptoms of neurogenic claudication. Symptoms areworsened with bending, lifting, and twisting. He really cannot find any position or activity that improves the discomfort. He has not trialed any formal physical therapy. He does utilize Tylenol for discomfort as needed. Employment: Retired ROS A ten point review of systems was completed today and, of note, pertinent positives and negatives are indicated in the HPI. reports that he quit smoking about 53 years ago. He has never used smokeless tobacco. Conservative Treatment: Physical Therapy: No formal PT Home Exercise Program: Walking, stretching independent Medications: Tylenol Other Treatments: None Injections: None Physical Examination Wt Readings from Last 1 Encounters: 09/18/23 92.1 kg (203 lb) BMI Readings from Last 1 Encounters: 09/18/23 30.87 kg/m?? Pain: 6 (Best- 4, walking / Worst- 9, anything physical) General: Pleasant, cooperative, Mood and affect are appropriate Posture: Upright Gait: Slow and somewhat stiff Palpation: There are no masses, lesions, or deformities. Skin: Intact with no stigmata of underlying disease. ROM: Slightly limited in all directions with increased discomfort on extension and rotation Sensation: Grossly intact throughout all dermatomes of the lower extremities Neuro: Strength: 5/5 throughout all muscle groups Reflexes: Absent knees and the ankles Provocative Maneuvers: Facet loading Maneuvers: Positive with increased discomfort on extension and rotation Imaging and Test Review: On the day of this encounter, I independently reviewed an MRI of the lumbar spine completed on 07/03/2023 demonstrating severe central canal stenosis at L4- 5 along with degenerative facet arthropathyspanning L4-S1 bilaterally CC: BRIDGETT [place] Referring Provider: Harjit Redmond APRN 09/19/2023 [facility] documented in this encounter Plan of Treatment Scheduled Procedures Name Priority Associated Diagnoses Date/Ti me EGD, UPPER GI ENDOSCOPY (WRV U 2.09) Esophageal dysphagia Encounter for colorectal cancer screening COLONOSCOPY, DIAGNOSTIC (WRV U 3.26) Esophageal dysphagia Encounter for colorectal cancer screening Scheduled Referrals Name Type Priority Associated Diagnoses Orde r Schedule Referral to Pain Management Outpatient Referral Routine Spinal stenosis, lumbar region with neurogenic claudication Ordered: 09/18/2023 documented as of this encounter Visit Diagnoses Diagnosis Spinal stenosis, lumbar region with neurogenic claudication documented in this encounter Care Teams Regulatory Administrator Relationship Specialty Start Date End Date Harjit Mcneil PA [address] [place] [address] PCP - General Internal Medicine 07/11/23 documented as of this encounter
--- OUTSIDE RECORDS SUMMARY | 2024-07-19 16:47 | XMS_ITS | Encounter Summary ---
Author Organization [facility] Address [facility] [address] [place] [address] Care Team Providers Care Access Manager Name Role Phone Norma Murdock APRN Primary Care Provider [phone] Encounter Details Date Type Department Care Team (Latest Contact Info) Description 11/05/2021 12:33 PM EST - 11/05/2021 11:59 PM EST Hospital Encounter Ultrasound at [facility] [place] [address] Flash Livingston MD [facility] [place] [address] Discomfort of left groin Discharge Disposition: Home Social History Tobacco Use Types Packs/Day Years Used Date Smoking Tobacco: Former Cigarettes Q uit: 05/28/1970 Smokeless Tobacco: Never Alcohol Use Standard Drinks/Week Comments No 0 (1 standard drink = 0.6 oz pur e alcohol) Sex and Gender Information Value Date Recorded Sex Assigned at Not on file Gender Identity Not on file Sexual Orientation Not on file documented as of this encounter Medications at Time of Discharge Medication Sig Dispensed Refills Start Date End Date inhalational spacing device Spacer by NOT APPLICABLE route. 08/16/2020 terazosin (HYTRIN) 2 mg Capsule 11/11/2018 acetaminophen (TYLENOL) 500 mg Tablet Take 2 tablets by mouth every 8 hours. Around the clock until 01/25/17, and then as needed. DO NOT EXCEED 3000 mg tylenol in a 24 hour period. 01/17/2017 albuterol (PROVENTIL HFA;VENTOLIN HFA;PROAIR) 90 mcg/actuation HFA Aerosol Inhaler Inhale 2 puffs into the lungs every 4 hours as needed for Wheezing. Use with spacer pantoprazole EC (Protonix) 20 mg Tablet, Delayed Release (E.C.) Take 1 tablet by mouth daily. 90 tablet 3 10/16/2021 09/19/2023 documented as of this encounter Plan of Treatment Scheduled Procedures Name Priority Associated Diagnoses Date/Ti me EGD, UPPER GI ENDOSCOPY (WRV U 2.09) Esophageal dysphagia Encounter for colorectal cancer screening COLONOSCOPY, DIAGNOSTIC (WRV U 3.26) Esophageal dysphagia Encounter for colorectal cancer screening documented as of this encounter Procedures Procedure Name Priority Date/Time Associated Diagnosis Comments US EXTREMITY NON VASCULAR LIMITED ANATOMIC SPECIFIC LEFT Routine 11/05/2021 1:11 PM EST Discomfort of left groin documented in this encounter Results * US Extremity Non Vascular Limited Left (11/05/2021 1:11 PM EST) Anatomical Region Laterality Modality Ultrasound 11/05/2021 1:12 PM EST Impressions 11/05/2021 1:51 PM EST intact LEFT inguinal hernia mesh was seen with no evidence of hernia recurrence Thank you for letting us participate in the care of this patient. If you are a health care provider and have any questions regarding this report, please contact the number above. For patients who have questions, please contact the health lawn caretaker that requested your imaging first. ? Clari Smith, Staff Physician Electronically Signed Final Report ?? 11/05/2021 01:51 pm Narrative 11/05/2021 1:51 PM EST Ultrasound Inguinal Report ?(Signed Final 11/05/2021 01:51 pm) LEFT PATIENT INFO: ID #: ? [id number] ?: ??[birth year] (71 yrs)(M) Name: ? SHREE ORTEZ ? Visit Date: 11/05/2021 01:12 pm PERFORMED BY: Performed By: ? Marcelino Marcus RDMS Attending: ?Clari Smith MD. Referred By: ?FLASH LIVINGSTON Location: ? [facility] SERVICE(S) PROVIDED: UEXTLMTL - Extremity Limited Non Vascular - Left ?[id number] - [id number] INDICATIONS: s/p left inguinal hernia 2015 with 1 year of pain/ache yet PE today negative for recurrence. ???occult recurrent hernia COMPARISON: CT: AB PEL 06/29/18 --------- FINDINGS: --------- Title: ? Ultrasound Inguinal Report LEFT Findings: ?No sonographic evidence of recurrent or new ?hernia at repair site with or without zofia janneth ?maneuvers. Procedure Note Clari Smith MD - 11/05/2021 Ultrasound Inguinal Report (Signed Final 11/05/2021 01:51 pm) LEFT PATIENT INFO: ID #: [id number] : 50 (71 yrs)(M) Name: SHREE ORTEZ Visit Date: 11/05/2021 01:12 pm PERFORMED BY: Performed By: Marcelino Marcus RDMS Attending: Clari Smith MD Referred By: FLASH LIVINGSTON Location: [facility] SERVICE(S) PROVIDED: UEXTLMTL - Extremity Limited Non Vascular - Left [id number] - [id number] INDICATIONS: s/p left inguinal hernia 2015 with 1 year of pain/ache yet PE today negative for recurrence. ?occult recurrent hernia COMPARISON: CT: AB PEL 06/29/18 --------- FINDINGS: --------- Title: Ultrasound Inguinal Report LEFT Findings: No sonographic evidence of recurrent or new hernia at repair site with or without zofia janneth maneuvers. IMPRESSION intact LEFT inguinal hernia mesh was seen with no evidence of hernia recurrence Thank you for letting us participate in the care of this patient. If you are a health care provider and have any questions regarding this report, please contact the number above. For patients who have questions, please contact the health lawn caretaker that requested your imaging first. Clari Smith, Staff Physician Electronically Signed Final Report 11/05/2021 01:51 pm Flash Livingston MD IMG US GEN ORDERABLE S documented in this encounter Visit Diagnoses Diagnosis Discomfort of left groin documented in this encounter Care Teams Access Manager Relationship Specialty Start Date End Date Nroma Murdock APRN [address] [place] [address] PCP - General Family Medicine 05/22/20 07/10/23 documented as of this encounter
--- OUTSIDE RECORDS SUMMARY | 2024-07-19 16:47 | XMS_ITS | Encounter Summary ---
Author Organization [facility] [place] [address] Care Team Providers Care Facility Designer Name Role Phone Harjit Mcneil Primary Care Provider [phone] Reason for Visit * Auth/Cert (Routine) Specialty Diagnoses / Procedures Referred By Ugo t Referred To Contact Diagnoses Spinal stenosis, lumbar region with neurogenic claudication Radiculopathy of lumbar region lumbar spinal stenosis with neurogenic claudication, lumbar radiculopathy Procedures PRO INJECTION DX/THER SBST INTRLMNR LMBR/SAC W/IMG GDN INJECTION, EPIDURAL, LUMBAR OR SACRAL (CAUDAL), WITH IMAGING GUIDANCE (WRVU 1.8) Kyle Danielson MD [facility] [place] [address] [facility] Referral ID Status Reason Start Date Expiration Date Visits Re quested Visits Authorized [id number] 1 1 Encounter Details Date Type Department Care Team (Late st Contact Info) Description 04/07/2024 1:30 PM EDT - 04/07/2024 2:00 PM EDT [place] [address] Kyle Danielson MD [facility] [place] [address] INJECTION, EPIDURAL, LUMBAR OR SACRAL (CAUDAL), WITH IMAGING GUIDANCE (WRVU 1.8) Social History Tobacco Use Types Packs/Day Years [...] Sign Reading Time Taken Comments Blood Pressure 146/90 04/07/2024 1:01 PM EDT Pulse 99 04/07/2024 12:58 PM EDT Temperature - - Respiratory Rate - - Oxygen Saturation 97% 04/07/2024 1:20 PM EDT Inhaled Oxygen Concentration - - Weight 95.3 kg (210 lb) 04/07/2024 1:01 PM EDT Height 172.7 cm (5' 8) 04/07/2024 1:01 PM EDT Body Mass Index 31.93 04/07/2024 1:01 PM EDT documented in this encounter Medications at Time of Discharge Medication Sig Dispensed Refills Start Date End Date latanoprost (Xalatan) 0.005 % Drops 03/01/2024 amLODIPine (Norvasc) 5 mg tablet 09/29/2023 hydroCHLOROthiazide (Hydrodiuril) 12.5 mg tablet Take 12.5 mg by mouth daily. 07/29/2023 inhalational spacing device Spacer by NOT APPLICABLE [...] as needed for Wheezing. Use with spacer documented as of this encounter H&P Notes * Eduardo Bautista MD - 04/06/2024 1:58 PM EDT Patient Name: Shree Ortez Jr. Patient Age: 73 y.o. Birthdate: 1950 Admit date: 04/07/2024 Attending Physician: Kyle Danielson MD [facility] PREPROCEDURE HISTORY AND PHYSICAL HPI: Shree Ortez Jr. is a 73 y.o. male who presents today for: Procedure: left Lumbar Epidural Steroid Injection - Interlaminar L5-S1 The history is obtained from the patient, and I have reviewed medical records provided by the referring physician, located in the electronic medical record to fill in gaps in the patient's recollection of events, treatments and outcomes. ROS: Patient denies recent fever, chills, infection, wounds, hospitalizations, ED visits, use of antibiotics. Pertinent positives and negatives otherwise noted in the HPI. I have reviewed the patient's past medical history, past surgical history, list of medications, allergies, family history and social history as documented in the electronic medical record. Physical Examination: BP 146/90 (Patient Position: Sitting) Pulse 99 Ht 172.7 cm (5' 8) Wt 95.3 kg (210 lb) GwQ775% BMI 31.93 kg/m?? Pain Ratin/10 Please see previous evaluation performed on 02/06/24, by Dr. Danielson No pertinent changes are noted from previous assessment. Pulmonary/Chest: Effort normal. Skin: Skin is warm and dry. No rash noted. Not diaphoretic. Radiologic Data: Relevant imaging was reviewed today. New Imaging: None Labs: No labs required Assessment and Plan: lumbar spinal stenosis with neurogenic claudication, lumbar radiculopathy Please see previous evaluation performed on 02/06/24, by Dr. Danielson, for justification of medical necessity for planned left Lumbar Epidural Steroid Injection - Interlaminar L5-S1. Addressed all questions and concerns. Nursing intake/checklist reviewed. Medications holds confirmed. Risks and benefits discussed with patient. No contraindications to the procedure at this time, will proceed. Eduardo Bautista MD Fellow Phys[facility] [place] [address] / documented in this encounter Miscellaneous Notes * Op Note - Kyle Danielson MD - 04/07/2024 1:24 PM EDT Pain Management Operative Note Patient Name: Shree Ortez JrAlisa : [id number] MR#: [id number] Case Date: 04/07/2024 Surgeon: Surgeons and Role: * Kyle Danielson MD - Primary * Eduardo Bautista MD - Resident - Assisting Present on Admission: Radiculopathy of lumbar region Spinal stenosis, lumbar region with neurogenic claudication Postoperative diagnosis: same LUMBAR INTERLAMINAR EPIDURAL STERIOID INJECTION PROCEDURE NOTE Mr. Shree Ortez Jr. has been referred to the Pain Management Center for a lumbar epidural steroid injection by Unknown None. The patient complains of low back pain with pain radiating down the bilateral leg. Mr. Ortez was greeted by the nurse who verified patients name and . The patient was then taken to the fluoroscopy suite. Mr. Ortez was interviewed and the medical record reviewed. There were no medical, pharmacologic, radiographic, or other structural contraindications to attempting fluoroscopically guided lumbar epidural steroid injection. Risks and potential side effects, as well as potential benefits of the procedure were reviewed with Mr. Ortez. His voiced concerns were addressed. After I was assured that informed consent was obtained, the patient consent form was signed. Standard time-out procedure was performed. Mr. Ortez was placed in the prone position on the fluoroscopy table and automated blood pressure cuff and pulse oximeter applied. The skin entry point for entering/approaching the left L5-S1 epidural space for the lumbar epidural steroid injection was marked. Following thorough chlorhexadine preparation of the skin and draping and 1% lidocaine infiltration of the skin entry point and subcutaneous tissues, an 18 gauge Touhy needle was placed and advanced under fluoroscopic guidance and with loss of resistance technique into the left L5-S1 epidural space. Needle tip placement and depth were aided and confirmed by fluoroscopy. There was no paresthesia or return of blood or CSF through the need le. 2 cc's of Omnipaque 240 was injected (48 cc's was wasted) with clear epidural spread confirmed with live fluoroscopy and no vascular uptake. 80 mg of preservative-free Depomedrol (80 mg/cc) and 2ml of 1% lidocaine preservative free was injected. This was followed by 1 cc of preservative-free normal saline to flush the steroid out of the needle. There was not any unusual discomfort expressed by Mr. Ortez. (48 cc of Omnipaque was wasted) Mr. Ortez's vital signs were stable throughout the procedure and were as recorded in nursing records. Patient's neurological examination was unchanged postprocedure. Follow up plans and appointments were discussed with Mr. Ortez. The patient is set to follow up with as scheduled. Post procedure instruction was given as documented in nursing records and having met discharge criteria he was discharged from the Pain Management Center. Comments: If this procedure is successful in helping with pain and improving his function, it can be completed a maximum of 3 times every 12 months. I was the attending physician supervising the fellow in the above care and I was present with the fellow for the entire procedure. Kyle Danielson MD [facility] Package Dye Stand Loader of Anesthesiology [facility] [address] [phone] / [facility] CC: Unknown None documented in this encounter Plan of Treatment Scheduled Procedures Name Priority Associated Diagnoses Date/Ti me EGD, UPPER GI ENDOSCOPY (WRV U 2.09) Esophageal dysphagia Encounter for colorectal cancer screening COLONOSCOPY, DIAGNOSTIC (WRV U 3.26) Esophageal dysphagia Encounter for colorectal cancer screening documented as of this encounter Procedures Procedure Name Priority Date/Time Associated Diagnosis Comments Injection Dx/Ther Sbst Intrlmnr Lmbr/Sac W/Img Gdn (78295) 04/07/2024 1:15 PM EDT Spinal stenosis, lumbar region with neurogenic claudication Radiculopathy of lumbar region INJECTION, EPIDURAL, LUMBAR OR SACRAL (CAUDAL), WITH IMAGING GUIDANCE Routine 04/07/2024 12:57 PM EDT Spinal stenosis, lumbar region with neurogenic claudication Radiculopathy of lumbar region documented in this encounter Visit Diagnoses Diagnosis Radiculopathy of lumbar region- Primary Thoracic or lumbosacral neuritis or radiculitis, unspecified Spinal stenosis, lumbar region with neurogenic claudication Spinal stenosis, lumbar region with neurogenic claudication Radiculopathy of lumbar region Thoracic or lumbosacral neuritis or radiculitis, unspecified documented in this encounter Admitting Diagnoses Diagnosis Radiculopathy of lumbar region Thoracic or lumbosacral neuritis or radiculitis, unspecified Spinal stenosis, lumbar region with neurogenic claudication documented in this encounter Administered Medications Inactive Administered Medications - up to 3 most recent administrations Medication Order MAR Action Action Date Dose Rate Site iohexoL (Omnipaque) (240 mg/mL) solution PRN, Starting on Fri04/07/24 at 1324, Until Fri04/07/24 at 1534, Intra-Operative (Intra-Procedure), Routine Given 04/07/2024 1:24 PM EDT 2 mLs lidocaine (pf) (Xylocaine) (10 mg/mL) 1% injection PRN, Starting on Fri04/07/24 at 1324, Until Fri04/07/24 at 1534, Intra-Operative (Intra-Procedure), Routine Given 04/07/2024 1:24 PM EDT 2 mLs methylPREDNISolone acetate (DEPO-Medrol) (80 mg/mL) injection PRN, Starting on Fri04/07/24 at 1325, Until Fri04/07/24 at 1534, Intra-Operative (Intra-Procedure), Routine Given 04/07/2024 1:25 PM EDT 80 mg documented in this encounter Active and Recently Administered Medications Times are shown in EDT. PRN Medication Order 04/05/2024 04/06/2024 04/07/2024 iohexoL (Omnipaque) (240 mg/mL) solution (CANCELED) PRN, Starting on Fri04/07/24 at 1324, Until Fri04/07/24 at 1534, Intra-Operative (Intra-Procedure), Routine 1324 (Given - Provid er: Eduardo Bautista MD - Comment: tunde) lidocaine (pf) (Xylocaine) (10 mg/mL) 1% injection (CANCELED) PRN, Starting on Fri04/07/24 at 1324, Until Fri04/07/24 at 1534, Intra-Operative (Intra-Procedure), Routine 132 (Given - Provid er: Eduardo Bautista MD - Comment: tunde) methylPREDNISolone acetate (DEPO-Medrol) (80 mg/mL) injection (CANCELED) PRN, Starting on Fri04/07/24 at 1325, Until Fri04/07/24 at 1534, Intra-Operative (Intra-Procedure), Routine 1325 (Given - Provid er: Eduardo Bautista MD - Comment: tunde) documented in this encounter Care Teams Facility Designer Relationship Specialty Start Date End Date Harjit Mcneil PA [address] [place] [address] PCP - General Internal Medicine 07/11/23 documented as of this encounter
--- OUTSIDE RECORDS SUMMARY | 2024-07-19 16:47 | XMS_ITS | Encounter Summary ---
[place] [address] Care Team Providers Care Construction Accountant Name Role Phone Harjit Mcneil Primary Care Provider [phone] Encounter Details Date Type Department Care Team (Latest Contact Info) Description 12/02/2023 Travel Social History Tobacco Use Types Packs/Day Years [...] documented as of this encounter Visit Diagnoses Not on filedocumented in this encounter Care Teams Construction Accountant Relationship Specialty Start Date End Date Harjit Mcneil PA [address] [place] [address] PCP - General Internal Medicine 07/11/23 documented as of this encounter
--- OUTSIDE RECORDS SUMMARY | 2024-07-19 16:47 | XMS_ITS | Encounter Summary ---
Author Organization [facility] Address [facility] [place] [place] [address] Care Team Providers Care Wood Miller Name Role Phone Tarun Harjit URIAS Primary Care Provider [phone] Reason for Visit * Reason Comments Back Pain Follow-up S/p LESI Lo wer back pain Encounter Details Date Type Department Care Team (Late st Contact Info) Description 04/30/2024 4:00 PM EDT Office Visit [facility] [place] [address] Kyle Danielson MD [facility] [place] [address] Chronic pain syndrome; Radiculopathy of lumbar region; Spinal stenosis, lumbar region with neurogenic claudication [...] - Inhaled Oxygen Concentration - - Weight 99.8 kg (220 lb) 04/30/2024 3:45 PM EDT Height 172.7 cm (5' 8) 04/30/2024 3:45 PM EDT Body Mass Index 33.45 04/30/2024 3:45 PM EDT documented in this encounter Progress Notes * Kyle Danielson MD - 04/30/2024 4:00 PM EDT [facility] follow-up visit note Name: Shree Ortez Jr. : 1950 Consulting Physician/Provider: Seeing at the request of Harjit Mcneil PA [address] [place] [address] Chief Complaint: Low back pain History of Present Illness: Patient was last seen in the clinic on 02/06/2024. Since his last visit, patient reports: - He underwent L5-S1 left paramedian interlaminar epidural steroid injection on 04/07/2024. Patient reports experiencing at least 50% pain relief with this injection. - He completed physical therapy 2 weeks ago which was somewhat beneficial. - Patient states that his low back pain problems are manageable at this point. - He reports being compliant to his home exercise regimen. - No other acute events or new medical problems since last visit. Original subjective: Shree Ortez Jr. is a 73 y.o. [...] Ms. Redmond recommended he be seen in [facility] since it is closer to his house. He said there was lots of difficulty getting the referral sent to [facility], and it took many weeks to hear back. Then finally they said they had no openings until January. So he decided to come to [facility] instead. Last note from Nina Redmond, OIL RIG ROUGHNECK 09/18/23 Shree Ortez Jr. is a pleasant [...] that interventional injection treatment be performed at [facility]. I think this is quite reasonable and will make a referral to Dr. Navarro. I am available to see the patient after his work with Dr. Navarro is completed. Functional Goals of Treatment: decrease pain and increase function Onset/Context of pain: Pain Location: Low back, sometimes to the left Onset: Constant Quality and timing of pain: Dull, aching, burning, sharp intermittently Radiation: Down posterior of both legs intermittently, left worse than right Pain Ratin Aggravating Factors: bending, lifting Relieving Factors: Tylenol, [...] being performed secondary to pain Other Treatment: Lens Examiner Helpful? No History of Interventional Procedures/Surgery: Prior Surgery: No Injection History (date, procedure, %improvement): None Chart review: Today I have reviewed available medical information in the patient's medical record at [facility] including relevant provider notes, laboratory work, and imaging. Historical Review: I have reviewed the patient's past medical, surgical, social, and family history available in the EMR at this time along with supplemented information provided by the patient during the interview process today. Pertinent findings: Tobacco: Social History Tobacco Use Smoking Status Former Current packs/day: 0.00 Types: Cigarettes Quit date: 05/28/1970 Years since quittin.9 Smokeless Tobacco Never Alcohol: Social History Substance [...] other constitutional symptoms, fevers, or weight changes. PHYSICAL EXAM: General: Patient is seated comfortably in NAD, well-groomed. HEENT: Head atraumatic, EOMI. Respiratory: Breathing comfortably on RA. Cardiovascular: no swelling Abdominal: non-distended Skin: No appreciable rashes or skin breakdown Psych: Appropriate affect, A&Ox3 , answers questions appropriately Musculoskeletal: Inspection - No gross appendicular or axial deformities Bilateral straight leg raise test negative Bilateral PSIS tenderness negative Bilateral lumbar paraspinal tenderness negative with negative facet loading tests Neurologic: lace weaver - grossly intact Reflexes - 1+ and symmetric in bilateral patellae, and Achilles. No ankle clonus. Motor - 5/5 in all planes of motion in both lower extremities. Sensation - Intact to light touch throughout lower extremities Gait/Station: Transitions from exam room chair to table without difficulty. Diagnostic Tests: Most recent Lumbar Spine MRI was completed on 07/03/23 at Outside Facility [facility] . In addition to the formal radiology read, I independently reviewed the imaging and shared my interpretation with the patient. The impression is: L4-S1 central canal stenosis Assessment: #1 chronic bilateral low back predominantly axial pain, likely related to a combination of lumbar facet arthropathy and lumbar spinal stenosis with neurogenic claudication. MRI of lumbar spine demonstrates severe L4-L5 spinal canal stenosis. No surgeries have been recommended at this point by spine surgery. Pain has improved by at least 50% with L5-S1 left paramedian interlaminar epidural steroidinjection. Patient was educated about signs and symptoms of cauda equina syndrome including new numbness, weakness, bladder bowel incontinence or saddle anesthesia. Patient was instructed to call us or go to the emergency room if they experiences any of the symptoms. Patient verbalized understanding. #2 chronic and gradually worsening balance problems, shuffling gait and bradykinesia. Patient has established care with outside neurologist. Continue management as per neurology. #3 physical deconditioning Plan: Diagnosis reviewed, treatment option addressed, and risk/benefits discussed. Self-care instructionsgiven. I am recommending a multidisciplinary treatment plan to help this patient better manage her pain. Physical Therapy: Recently completed physical therapy which was somewhat beneficial. Clinical Health Psychologist to address issues of relaxation, behavioral change, coping style, and other factors important to improvement: None at this point. Self Care Recommendations: Recommend compliance to home exercise regimen. Diagnostic Studies: None at this point Medication Management: No new medications Further procedures recommended: None at this point. -Can consider repeat L5-S1 left paramedian interlaminar epidural steroid injection under fluoroscopy guidance in future based on duration of pain relief. -Can consider L MBB/RFA in future. Referrals: Continue follow-up with outside neurology. Established care with spine surgery. Release of information: None Follow up: As needed in future. Kyle Danielson MD [facility] Practice Specialist of Anesthesiology [facility] [address] [phone] / [facility] CC: Harjit Mcneil PA [address] [place] [address] documented in this encounter Plan of Treatment Scheduled Procedures Name Priority Associated Diagnoses Date/Ti me EGD, UPPER GI ENDOSCOPY (WRV U 2.09) Esophageal dysphagia Encounter for colorectal cancer screening COLONOSCOPY, DIAGNOSTIC (WRV U 3.26) Esophageal dysphagia Encounter for colorectal cancer screening documented as of this encounter Visit Diagnoses Diagnosis Chronic pain syndrome Radiculopathy of lumbar region Thoracic or lumbosacral neuritis or radiculitis, unspecified Spinal stenosis, lumbar region with neurogenic claudication documented in this encounter Care Teams Wood Miller Relationship Specialty Start Date End Date Harjit Mcneil PA [address] [place] [address] PCP - General Internal Medicine 07/11/23 documented as of this encounter
--- OUTSIDE RECORDS SUMMARY | 2024-07-19 16:47 | XMS_ITS | Encounter Summary ---
Author Organization [facility] [place] [place] [place] [address] Care Team Providers Care Charge Entry Clerk Name Role Phone Harjit Mcneil Primary Care Provider [phone] Encounter Details Date Type Department Care Team (Late st Contact Info) Description 10/07/2023 Telephone [facility] [place] [phone] Rashmi Paz, RN Social History Tobacco Use Types Packs/Day Years Used Date Smoking Tobacco: Former Cigarettes Q uit: 05/28/1970 Smokeless Tobacco: Never Alcohol Use Standard Drinks/Week Comments No 0 (1 standard drink = 0.6 oz pur e alcohol) Sex and Gender Information Value Date Recorded Sex Assigned at Not on file Gender Identity Not on file Sexual Orientation Not on file documented as of this encounter Miscellaneous Notes * Telephone Encounter - Rashmi Paz, RN - 10/07/2023 1:52 PM EST Recieived call from pt who saw Lauryn Redmond 09/18/23. Pt reports Nina was to refer him to [facility] for pain mgmt; pt has yet to receive a call re the appt. Informed pt that I could see that Nina placed the referral n the day he was seen. Offered to connect her w Иван at the scheduling desk to confirm that her external referral for pain and Nina's clinic note was sent to [facility]. I explained once they had the info- they would call her directly to schedule. Transferred call to Иван. documented in this encounter Plan of Treatment Scheduled Procedures Name Priority Associated Diagnoses Date/Ti me EGD, UPPER GI ENDOSCOPY (WRV U 2.09) Esophageal dysphagia Encounter for colorectal cancer screening COLONOSCOPY, DIAGNOSTIC (WRV U 3.26) Esophageal dysphagia Encounter for colorectal cancer screening documented as of this encounter Visit Diagnoses Not on filedocumented in this encounter Care Teams Charge Entry Clerk Relationship Specialty Start Date End Date Harjit Mcneil PA [address] [place] [address] PCP - General Internal Medicine 07/11/23 documented as of this encounter
--- OUTSIDE RECORDS SUMMARY | 2024-07-19 16:47 | XMS_ITS | Encounter Summary ---
[place] [address] Care Team Providers Care Hereditary Cancer Program Coordinator Name Role Phone Tarun Harjit URIAS Primary Care Provider [phone] Reason for Referral * Consultation (Routine) - Authorized Specialty Diagnoses / Procedures Referred By Ugo t Referred To Contact Neurology Diagnoses Peripheral polyneuropathy Vicente Molina MD [address] [place] [address] [facility] [address] [place] [phone] Referral ID Status Reason Start Date Expiration Date Visits Requested Visits Authorized [id number] Authorized Consult, Test & Treat 06/29/2024 06/29/2025 1 1 Encounter Details Date Type Department Care Team (Latest Contact Info) Description 06/29/2024 Transcribe Orders eDH Incoming Referrals [phone] Vicente Molina MD [address] [place] [address] Peripheral polyneuropathy Social History Tobacco Use Types Packs/Day Years [...] Associated Diagnoses Orde r Schedule Referral to Neurology Outpatient Referral Routine Peripheral polyneuropathy Ordered: 06/29/2024 documented as of this encounter Visit Diagnoses Diagnosis Peripheral polyneuropathy Unspecified hereditary and idiopathic peripheral neuropathy documented in this encounter Care Teams Hereditary Cancer Program Coordinator Relationship Specialty Start Date End Date Harjit Mcneil PA [address] [place] [address] PCP - General Internal Medicine 07/11/23 documented as of this encounter
--- OUTSIDE RECORDS SUMMARY | 2024-07-19 16:47 | XMS_ITS | Encounter Summary ---
Author Organization [facility] [place] [place] [address] Care Team Providers Care Apparel Pattern Maker Name Role Phone Harjit Mcneil Primary Care Provider [phone] Reason for Visit * Auth/Cert (Routine) Specialty Diagnoses / Procedures Referred By Ugo t Referred To Contact Diagnoses Spinal stenosis, lumbar region with neurogenic claudication Radiculopathy of lumbar region lumbar spinal stenosis with neurogenic claudication, lumbar radiculopathy Procedures PRO INJECTION DX/THER SBST INTRLMNR LMBR/SAC W/IMG GDN INJECTION, EPIDURAL, LUMBAR OR SACRAL (CAUDAL), WITH IMAGING GUIDANCE (WRVU 1.8) Kyle Danielson MD [facility] [place] [address] [facility] Referral ID Status Reason Start Date Expiration Date Visits Re quested Visits Authorized [id number] 1 1 Encounter Details Date Type Department Care Team (Latest Contact Info) Description 04/07/2024 12:23 PM EDT - 04/07/2024 1:32 PM EDT Hospital [place] [address] Kyle Danielson MD [facility] [place] [address] Spinal stenosis, lumbar region with neurogenic claudication; Radiculopathy of lumbar region Discharge Disposition: Home Social History Tobacco Use [...] date: 04/07/2024 Attending Physician: Kyle Danielson MD [facility] PREPROCEDURE HISTORY AND [...] (5' 8) Wt 95.3 kg (210 lb) CuJ601% BMI 31.93 kg/m?? Pain Ratin/10 Please see [...] Fellow [facility] [place] [address] / documented in this encounter Miscellaneous Notes * Op Note - Kyle Danielson MD - 04/07/2024 1:24 PM EDT Pain Management Operative Note Patient Name: Shree Ortez JrAlisa : [id number] MR#: [id number] Case Date: 04/07/2024 Surgeon: Surgeons and Role: [...] procedure. Kyle Danielson MD [facility] Retort Engineer of Anesthesiology [facility] [address] [address] / [facility] CC: Unknown None documented in this encounter [...] Injection Dx/Ther Sbst Intrlmnr Lmbr/Sac W/Img Gdn ([id number]) 04/07/2024 1:15 PM EDT Spinal stenosis, lumbar [...] with neurogenic claudication documented in this encounter Admitting Diagnoses Diagnosis Radiculopathy of lumbar region Thoracic or lumbosacral neuritis or radiculitis, unspecified Spinal stenosis, lumbar region with neurogenic claudication documented in this encounter Active and Recently [...] tunde) documented in this encounter Care Teams Apparel Pattern Maker Relationship Specialty Start Date End Date Harjit Mcneil PA [address] [place] [address] PCP - General Internal Medicine 07/11/23 documented as of this encounter
--- OUTSIDE RECORDS SUMMARY | 2024-07-19 16:47 | XMS_ITS | Encounter Summary ---
Author Organization [facility] [place] [place] [address] Care Team Providers Care Wastewater Operator Name Role Phone Harjit Mcneil Primary Care Provider [phone] Encounter Details Date Type Department Care Team (Late st Contact Info) Description 10/07/2023 Telephone [facility] [place] [place] [phone] Иван Spence Social History Tobacco Use Types Packs/Day Years [...] encounter Miscellaneous Notes * Telephone Encounter - Иван Spence - 10/07/2023 2:00 PM EST Referral sent again, transmission confirmed to [facility] documented in this encounter Plan of Treatment Scheduled Procedures Name Priority Associated Diagnoses Date/Ti me EGD, UPPER GI ENDOSCOPY (WRV U 2.09) Esophageal dysphagia Encounter for colorectal cancer screening COLONOSCOPY, DIAGNOSTIC (WRV U 3.26) Esophageal dysphagia Encounter for colorectal cancer screening documented as of this encounter Visit Diagnoses Not on filedocumented in this encounter Care Teams Wastewater Operator Relationship Specialty Start Date End Date Harjit Mcneil PA [address] [place] [address] PCP - General Internal Medicine 07/11/23 documented as of this encounter
--- OUTSIDE RECORDS SUMMARY | 2024-07-19 16:47 | XMS_ITS | Encounter Summary ---
[place] [address] Care Team Providers Care International Broadcast Music Librarian Name Role Phone Harjit Mcneil Primary Care Provider [phone] Encounter Details Date Type Department Care Team (Latest Contact Info) Description 02/04/2024 Travel Social History Tobacco Use Types Packs/Day [...] on filedocumented in this encounter Care Teams International Broadcast Music Librarian Relationship Specialty Start Date End Date Harjit Mcneil PA [address] [place] [address] PCP - General Internal Medicine 07/11/23 documented as of this encounter
--- OUTSIDE RECORDS SUMMARY | 2024-07-19 16:47 | XMS_ITS | Clinical Summary ---
Author Organization [facility] Address [facility] [address] [place] [place] [address] Care Team Providers Care Power Grader Operator Name Role Phone Harjit Mcneil Primary Care Provider Allergies Active Allergy Reactions Criticality Noted Date Comments Amitriptyline Medium 11/28/2020 Diltiazem Medium 11/28/2020 Lisinopril Medium 11/28/2020 Pantoprazole 07/24/2022 Medications Medication Sig Dispensed Refills Start Date End Date Status albuterol (PROVENTIL HFA;VENTOLIN HFA;PROAIR) 90 mcg/actuation HFA Aerosol Inhaler Inhale 2 puffs into the lungs every 4 hours as needed for Wheezing. Use with spacer Active acetaminophen (TYLENOL) 500 mg Tablet Take 2 tablets by mouth every 8 hours. Around the clock until 01/25/17, and then as needed. DO NOT EXCEED 3000 mg tylenol in a 24 hour period. 01/17/2017 Active terazosin (HYTRIN) 2 mg Capsule 11/11/2018 Active inhalational spacing device Spacer by NOT APPLICABLE route. 08/16/2020 Active hydroCHLOROthiazide (Hydrodiuril) 12.5 mg tablet Take 12.5 mg by mouth daily. 07/29/2023 Active amLODIPine (Norvasc) 5 mg tablet 09/29/2023 Active latanoprost (Xalatan) 0.005 % Drops 03/01/2024 Active dorzolamide (Trusopt) 2 % Drops Place 1 drop into both eyes 2 times daily. 04/08/2024 Active Active Problems Problem Noted Date Diagnosed Date Spinal stenosis, lumbar region with neurogenic c laudication 04/07/2024 Radiculopathy of lumbar region 04/06/2024 s/p LEFT anterior JOHN on 01/15/[address] 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 Encounters Date Type Department Care Team Description 06/29/2024 Transcribe Orders eDH Incoming Referrals [phone] Vicente Molina MD Peripheral polyneuropathy 04/30/2024 4:00 PM EDT Office [place] [address] Kyle Danielson MD Chronic pain syndrome; Radiculopathy of lumbar region; Spinal stenosis, lumbar region with neurogenic claudication 04/30/2024 Travel from Last 3 Months Family History Medical History Relation Comments Cancer Sister Relation Status Comments Sister Social History Tobacco Use Types Packs/Day Years Used Date Smoking Tobacco: Former Cigarettes Q uit: 05/28/1970 Smokeless Tobacco: Never Alcohol Use Standard Drinks/Week Comments No 0 (1 standard drink = 0.6 oz pur e alcohol) Sex and Gender Information Value Date Recorded Sex Assigned at Not on file Gender Identity Not on file Sexual Orientation Not on file Last Filed Vital Signs Vital Sign Reading Time Taken Comments Blood Pressure 146/90 04/07/2024 1:01 PM EDT Pulse 99 04/07/2024 12:58 PM EDT Temperature 37 ??C (98.6 ??F) 11/05/2021 2:52 PM EST Respiratory Rate 22 11/05/2021 2:52 PM EST Oxygen Saturation 97% 04/07/2024 1:20 PM EDT Inhaled Oxygen Concentration - - Weight 99.8 kg (220 lb) 04/30/2024 3:45 PM EDT Height 172.7 cm (5' 8) 04/30/2024 3:45 PM EDT Body Mass Index 33.45 04/30/2024 3:45 PM EDT Plan of Treatment Scheduled Procedures Name Priority Associated Diagnoses Date/Ti me EGD, UPPER GI ENDOSCOPY (WRV U 2.09) Esophageal dysphagia Encounter for colorectal cancer screening COLONOSCOPY, DIAGNOSTIC (WRV U 3.26) Esophageal dysphagia Encounter for colorectal cancer screening Health Maintenance Due Date Last Done Comments CT Colonography 1950 FIT DNA 1950 FIT 1950 Sigmoidoscopy 1950 Hepatitis C Screening 1968 Lipid Screening 1968 Tetanus/Diphtheria/Pertussis Vaccines (1 - Tdap) 1969 Zoster vaccine (1 of 2) 2000 AAA Screen 2015 Pneumoccocal Vaccine: 65+ (1 of 1 - PCV) 2015 Covid-19 Vaccine (1 - 2022-2 4 season) 2024 Influenza (Flu) vaccine (1 o f 1 - Influenza standard series) 05/23/2024 Colonoscopy 09/26/2024 09/26/2014, 09/26/2014 Colorectal Cancer Screening 09/26/2024 Sigmoidoscopy (10 year) with FIT yearly 09/26/2024 09/26/2014, 09/26/2014 Diabetes Screening (HgbA1C o r Glucose) Discontinued 08/09/2020, 06/29/2018, 06/19/2017, Additional history exists Medical Devices Implanted Type Area Returned Goods Receiving Clerk Device Identifier Shelf Expiration Date Model / Serial / Lot Mesh,Bard,Sft ,3x6in ([id number]) - [id number] Implanted:Qty : 1 on 07/07/2015 by Flash Rivas MD at [facility] IMPLANTS Left: Inguinal [employer] - 1825 03/19/2020 [id number] / / [id number] Inser,Altrx,N t,30r91hp ([id number]) (Autoreq) - [id number] Implanted:Qty : 1 on 01/15/2017 by Pineda Montague MD at [facility] IMPLANTS Left: Hip DO NOT USE Depuy Enterprise Data Architect - 3527 11/19/2021 4 / / [id number] Liner,Howe,Hl ,[place],Pos,Stp ([id number]) (Autoreq) - [id number] Implanted:Qty : 1 on 01/15/2017 by Pineda Montague MD at [facility] IMPLANTS Left: Hip DO NOT USE Depuy [employer] - 3527 09/21/2026 0 / / [id number] Cup,Hip,Acetb ,Grptn,100,54 mm ([id number]) (Autoreq) - [id number] Implanted:Qty : 1 on 01/15/2017 by Pineda Montague MD at [facility] IMPLANTS Left: Hip DO NOT USE Depuy [employer] - 3527 11/19/2026 4 / / [id number] Head,Dlta,Crm c,+1.5,09/04, 36mm ([id number]) (Autoreq) - [id number] Implanted:Qty : 1 on 01/15/2017 by Pineda Montague MD at [facility] IMPLANTS Left: Hip DO NOT USE Depuy [employer] - 3527 10/22/2021 0 / / [id number] Stem,Crl2.Lat ,Coxa,Sz12 ([id number]) (Autoreq) - [id number] Implanted:Qty : 1 on 01/15/2017 by Pineda oMntague MD at [facility] IMPLANTS Left: Hip DO NOT USE Depuy [employer] - 3527 09/21/2021 [id number] / / [id number] Procedures Procedure Name Priority Date/Time Associated Diagnosis Comments HC VENIPUNCTURE STAT 08/09/2020 1:03 PM EST Renal cell carcinoma, unspecified laterality COLONOSCOPY Routine 09/26/2014 3:12 PM EST from Last 3 Months or Most Recently Relevant to Health Maintenance Results * (ABNORMAL) Basic Metabolic Panel (non-fasting) (08/09/2020 1:03 PM EST) Glucose 103 65 - 199 mg/dL [facility] Comment:Diabetes: >=200 mg/d L plus symptoms Blood Urea Nitrogen 20 10 - 20 mg/dL [facility] Creatinine 1.20 0.80 - 1.50 mg/dL [facility] Sodium 140 135 - 145 mmol/L [facility] Potassium 4.3 3.5 - 5.0 mmol/L [facility] Comment: Please note: ??Patients with WBC >100,000 may have falsely elevated Potassium levels. ??For accurate Potassium quantification in these patients send serum separator tube (gold top) for subsequent determinations. ??Contact the Clinical Chemistry Laboratory if there are any questions. Chloride 108(H) 98 - 107 mmol/L [facility] Carbon Dioxide 25 22 - 31 mmol/L [facility] Anion Gap 7 5 - 15 mmol/L [facility] Calcium 9.1 8.5 - 10.5 mg/dL [facility] Est Glomerular Filtration Rate 61 >=60 mL/min/1. 73 m?? [facility] Comment: The eGFR was calculated using the CKD-EPI equation. As with all creatinine based estimates of kidney function, eGFR values calculated with the CKD-EPI equation are not accurate in patients with acute kidney failure, extremes of body mass or the acutely ill. http://[facility] eGFR 71 >=60 mL/min/1. 73 m?? [facility] Comment: The eGFR was calculated using the CKD-EPI equation. As with all creatinine based estimates of kidney function, eGFR values calculated with the CKD-EPI equation are not accurate in patients with acute kidney failure, extremes of body mass or the acutely ill. http://[facility] CITYnkf Blood specimen (specimen) 08/09/2020 1:03 PM EST 08/09/2020 1:11 PM EST Narrative Resulting Agency Comment Spec In Lab Toni Akbar MD CHEMISTRY ORDERABL ES Performing Organization Address City/State/[facility] Co de Phone Number [facility] [place] [place] [address] * COLONOSCOPY (09/26/2014 3:12 PM EST) COLONOSCOPY [facility] Endoscopy Patient Name: Shree Ortez ? Procedure Date: 09/26/2014 3:12 PM ? Date of : 1950 ? Age: 64 ? Order #: [id number] ? Procedure: ? Colonoscopy Indications: ? Screening for colorectal malignant ? neoplasm Providers: ? Nina Almaguer MD, Marissa Zamorano ? Vikki Caraballo Referring : ?Ivanna Hughes MD Medicines: ? Fentanyl 25 micrograms IV, Midazolam ? 0.5 mg IV Complications: ? No immediate complications. Procedure: ? Pre-Anesthesia Assessment: ? - Prior to the procedure, a History ? and Physical was performed, and ? patient medications, allergies and ? sensitivities were reviewed. The ? patient's tolerance of previous ? anesthesia was reviewed. ? - The risks and benefits of the ? procedure and the sedation options ? and risks were discussed with the ? patient. All questions were answered ? and informed consent was obtained. ? - Patient identification and proposed ? procedure were verified prior to the ? procedure by the physician. ? - Pre-procedure physical examination ? revealed no contraindications to ? sedation. ? - ASA Grade Assessment: II - A ? patient with mild systemic disease. ? - After reviewing the risks and ? benefits, the patient was deemed in ? satisfactory condition to undergo the ? procedure. ? - The anesthesia plan was to use ? moderate sedation/analgesia ? (conscious sedation). ? - Immediately prior to administration ? of medications, the patient was ? re-assessed for adequacy to receive ? sedatives. ? The procedure, indications, benefits, ? risks and alternatives were explained ? to the patient. Specifically ? discussed were potential ? complications including, but not ? limited to, bleeding, perforation, ? infection, missing a cancer, and ? adverse medication reactions. The ? patient was placed in the left ? lateral decubitus position, and a ? digital rectal exam was performed. ? The Colonoscope was inserted in the ? anus and under direct visualization, ? advanced to the terminal ileum. ? Careful inspection was made as the ? colonoscope was withdrawn. The ? colonoscopy was performed with ease. ? The patient tolerated the procedure ? well. The quality of the bowel ? preparation was good. Scope ? withdrawal time was 17 minutes. ? Findings: ? The perianal and digital rectal examinations were ? normal. ? The terminal ileum appeared normal. ? A sessile polyp was found in the ascending colon. The ? polyp was 5 mm in size. The polyp was removed with a ? cold snare. Resection and retrieval were complete. ? A sessile polyp was found in the transverse colon. ? The polyp was 5 mm in size. The polyp was removed ? with a cold snare. Resection and retrieval were ? complete. ? The exam was otherwise without abnormality on direct ? and retroflexion views. ? Impression: ?- The examined portion of the ileum ? was normal. ? - One 5 mm polyp in the ascending ? colon. Resected and retrieved. ? - One 5 mm polyp in the transverse ? colon. Resected and retrieved. ? - The examination was otherwise ? normal on direct and retroflexion ? views. Recommendation: ?- Discharge patient to home. ? - Follow up pathology reports from ? upper and lower endoscopy. Next ? colonoscopy pending path results. ? - If ongoing dysphagia, can consider ? GI clinic referral and possible ? manometry (esophageal motility) study. ? Attending Participation: ? I personally performed the entire procedure. ? Nina Almaguer MD 09/26/2014 4:16 PM Number of Addenda: 0 Note Initiated On: 09/26/2014 3:12 PM PROVATION 09/26/2014 3:12 PM EST Ivanna Hughes APRN GENERAL SURGICAL O RDERABLES PROVATION from Last 3 Months or Most Recently Relevant to Health Maintenance Advance Directives Documents on File Type Date Recorded Patient [facility] Owner Expl anation Advance Directives and Livin g Will 06/09/2014 3:32 PM 06/09/14 * Full Code (Latest Code Status on File) Date Activated Date Inactivated Comments 01/15/2017 7:35 AM 01/17/2017 3:49 PM Question Answer Comments Does patient have capacity to make decision: Yes * Full Code Date Activated Date Inactivated Comments 01/15/2017 6:15 AM 01/15/2017 7:35 AM Question Answer Comments Does patient have capacity to make decision: Yes * Suspended DNR Date Activated Date Inactivated Comments 07/07/2015 2:58 PM 07/07/2015 9:26 PM Question Answer Comments Does patient have capacity t o make decision: Yes Order Status: Suspended DNR until new order pl aced * Full Code Date Activated Date Inactivated Comments 06/07/2014 11:34 AM 06/10/2014 4:43 PM Question Answer Comments Order Status: Initial Order Does patient have decision m aking capacity? Yes, Order is based on Patients wishes. * Full Code Date Activated Date Inactivated Comments 06/07/2014 6:28 AM 06/07/2014 11:34 AM Care Teams Power Grader Operator Relationship Specialty Start Date End Date Harjit Mcneil PA [address] [place] [address] PCP - General Internal Medicine 07/11/23
--- OUTSIDE RECORDS SUMMARY | 2024-07-19 16:47 | XMS_ITS | Encounter Summary ---
[place] [address] Care Team Providers Care Counterperson Name Role Phone Harjit Mcneil Primary Care Provider [phone] Encounter Details Date Type Department Care Team (Latest Contact Info) Description 09/18/2023 Travel Social History Tobacco Use Types Packs/Day [...] on filedocumented in this encounter Care Teams Counterperson Relationship Specialty Start Date End Date Harjit Mcneil PA [address] [place] [address] PCP - General Internal Medicine 07/11/23 documented as of this encounter
--- OUTSIDE RECORDS SUMMARY | 2024-07-19 16:47 | XMS_ITS | Continuity of Care Document ---
Author Organization [facility] Address [address] [place] [address] Phone Care Team Providers Care Edge Stainer Machine Name Role Phone BRIDGETT BLANKENSHIP Primary Care Provider MD Vicente Molina Attending Provider Care Teams Patient Care Team Team Status: Active Member Role Status Dates BRIDGETT LEO Primary Care Provider Active Patient Care Team Team Status: Inactive Member Role Status Dates BRIDGETT LEO Primary Care Provi jose, Referring Provider Active Start: June 28, 2024 End: June 28, 2024 Vicente Molina MD Attending Provider Active Start: June 28, 2024 End: June 28, 2024 Chief Complaint and Reason for Visit Chief Complaint Progressive bradykin esia and ataxia Reason for Visit Peripheral neuropath y Allergies, Adverse Reactions, Alerts Allergen Type Severity Reaction Last Updated Verified Status amitriptyline Adverse Reaction Unknown Dizziness Octob 2023 1:13pm Yes Active diltiazem Adverse Reaction Unknown Altered Men luzma Status June 28, 2024 1:13pm Yes Active lisinopril Adverse Reaction Unknown Altered Men luzma Status June 28, 2024 1:13pm Yes Active pantoprazole Adverse Reaction Unknown Altered Men luzma Status June 28, 2024 1:13pm Yes Active Social History Smoking Status Status Start Date End Date Date of Observa tion Unknown if ever smoked December 16, 2023 10:06am Observation Status Observation Response Date of Response alcohol intake never December 16, 2023 10:06am Additional Data Assigned Sex Male Family History Relationship Condition Age at Onset Recorded Date/T stephanie mother Diabetes mellitus Unknown Other or Unknown Chronic obstructive pulmonary disease Unknown Problems Active Problems Medical Problem Onset Date Status Pain in left eye Active BPH (benign prostatic hyperplasia) Active 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, left Act steve History of left inguinal hernia repair Active Erectile dysfunction Active Anxiety Active Ataxia Active Primary malignant neoplasm of left kidney Active Dysphagia Active Dyspnea Active Mild intermittent asthma Active Peripheral neuropathy Active Spinal stenosis Active Essential hypertension Active History of colonoscopy Active History of total hip replacement Active Tinnitus Active Medications Medication Status Dose Units Route Directions Qty Days St art Date End Date Instructions Hydrochloroth iazide Active 12.5 MG PO daily December 15, 2023 12:00a m Terazosin Discontin ued MG PO December 15, 2023 12:00a m December 16, 2023 10:05a m Albuterol Sulfate Discontin ued INHALAT ION December 15, 2023 12:00a m December 16, 2023 10:05a m Amlodipine Active 5 MG PO daily December 15, 2023 12:00a m Albuterol Sulfate Active 2 PUFF INHALAT ION every 6 to 8 hours December 16, 2023 10:04a m Terazosin Discontin ued 6 MG PO December 16, 2023 10:04a m February 26, 2024 1:01pm Terazosin Active 6 MG PO daily February 26, 2024 1:01pm Vital Signs Vital Reading Result Reference Range Collection Date/Time Height 172.72 cm June 28 12:47pm Weight 95.25 kg June 28 12:47pm Body Temperature 98.1 [degF] 97.6-99.6 June 12:47pm Heart Rate 74 /min 60-100 June 28 12:47pm Respiratory rate 18 /min 12-18 June 12:47pm Oxygen saturation by Pulse oximetry 97 % 92-100 June 28, 2024 12 :47pm BP Systolic 118 mm[Hg] 90-130 June 28 12:47pm BP Diastolic 82 mm[Hg] 70-80 June 28 12:47pm BMI (Body Mass Index) 31.9 kg/m2 Octobe r 2023 12:47pm Advance Directives Advance Directive Response Recorded Date/ Time Advance Directives Yes December 15, 10:06am Living Will No December 16, 2023 9:29am Legal Guardian No December 16, 2023 10:06am Insurance Providers Guarantor TOMÁS GALE JR Address [address] [place], [place] [id number] Contact Info. Home Phone: Payer Policy Id Coverage Id Subscriber's Name Subscriber Id Effective Date Expiration Date [facility] [id number] TOMÁS GALE [id number] Encounters Encounter Location(s) Arrival/Admit Date Discharge/Depart Date Provider(s) Departed Physician/Prov ider Office Visit [facility] [place] June 28, 2024 12:33pm June 28, 2024 1:22pm Vicente Molina MD Recent Diagnosis Onset Date Peripheral neuropathy Assessments Diagnosis Onset Date Resolution Status Peripheral neuropathy noneac tive Plan of Treatment Future Tests Future scheduled test information is unavailable Pending Tests Test Name Ordered Date Scheduled Date SPEP w Rflx to SEDA Serum June 28, 2024 1:09p m Serum Protein Electrophoresis June 28, 2024 1:07pm Future Visits Future appointment information is unavailable Referrals to Other Providers Reason for Referral Referral Start Date Provider Provider Contact Information Provider Address G62.9 - Polyneuropathy, unspecified June 28, 2024 [facility] , [place] Work Phone: [facility] [place] [address] Future Procedures Future procedure information is unavailable Future Medications Future medication information is unavailable Patient Instructions Patient instructions are unavailable Hospital Discharge Instructions Ambulatory Orders* Neurology Referral Time Frame: 1 Week, Location: None Selected
--- OUTSIDE RECORDS SUMMARY | 2024-07-19 16:47 | XMS_ITS | Encounter Summary ---
[place] [address] Care Team Providers Care Cataloging Assistant Name Role Phone Harjit Mcneil Primary Care Provider [phone] Reason for Referral * Consultation (Routine) - Closed Specialty Diagnoses / Procedures Referred By Ugo t Referred To Contact [facility] and [facility] Diagnoses Chronic back pain, unspecified back location, unspecified back pain laterality chronic low back pain/ imaging Harjit Mcneil PA [address] [place] [address] [facility] [place] [address] Referral ID Status Reason Start Date Expiration Date V isits Requested Visits Authorized [id number] Closed Consult, Test & Treat PCP Updated and/or Approved 07/07/2023 07/07/2024 12 12 Encounter Details Date Type Department Care Team (Latest Contact Info) Description 07/11/2023 Transcribe Orders eDH Incoming Referrals [phone] Harjit Mcneil PA [address] [place] [address] Chronic back pain, unspecified back location, unspecified back pain laterality Social History Tobacco Use Types Packs/Day Years [...] Associated Diagnoses Orde r Schedule Referral to Spine Center Outpatient Referral Routine Chronic back pain, unspecified back location, unspecified back pain laterality Ordered: 07/11/2023 documented as of this encounter Visit Diagnoses Diagnosis Chronic back pain, unspecified back location, unspecified back pain laterality documented in this encounter Care Teams Cataloging Assistant Relationship Specialty Start Date End Date Harjit Mcneil PA [address] [place] [address] PCP - General Internal Medicine 07/11/23 documented as of this encounter
--- OUTSIDE RECORDS SUMMARY | 2024-07-19 16:47 | XMS_ITS | Encounter Summary ---
[place] [address] Care Team Providers Care School Boat Driver Name Role Phone Harjit Mcneil Primary Care Provider [phone] Encounter Details Date Type Department Care Team (Latest Contact Info) Description 04/30/2024 Travel Social History Tobacco Use Types Packs/Day [...] on filedocumented in this encounter Care Teams School Boat Driver Relationship Specialty Start Date End Date Harjit Mcneil PA [address] [place] [address] PCP - General Internal Medicine 07/11/23 documented as of this encounter
--- OUTSIDE RECORDS SUMMARY | 2024-07-19 16:47 | XMS_ITS | Encounter Summary ---
Author Organization [facility] [address] [place] [address] Care Team Providers Care Shot Hole Shooter Name Role Phone Tarun Harjit URIAS Primary Care Provider [phone] Encounter Details Date Type Department Care Team (Late st Contact Info) Description 04/01/2024 Telephone [facility] [place] [address] Christine Bunn, RN Social History Tobacco Use Types Packs/Day [...] encounter Miscellaneous Notes * Telephone Encounter - Christine Bunn, RN - 04/01/2024 4:22 PM EDT Incoming call from pt asking if we rec'd the reports from the Neurology referral that Dr. Danielson had done at his appt on the . Reviewed chart. STEVE: was 02/05, but no referral orders or EMG/NCS orders found. Reported to pt, and pt stated that maybe his PCP ordered those, but pt did ask for results to be sent to PCP and Dr. Danielson. Reviewed [facility] no EMG/NCS results found. Pt reports PCP had not rec'd results yet. Pt wanting to make sure theresults don't affect proceeding with planned 04/07 procedure. Recommended: Pt return call to PCP and [facility] for info, and supplied fax #[phone] for pt to have results sent to us. Did report to pt that as of the OVN on 02/05, Dr. Danielson only commented Referrals: Continue follow-up with outside neurology. Established care with spine surgery., so we should be able to continue as is. Reported I would forward msg to Dr. Danielson as an FYI also. documented in this encounter Plan of Treatment Scheduled Procedures Name Priority Associated Diagnoses Date/Ti me EGD, UPPER GI ENDOSCOPY (WRV U 2.09) Esophageal dysphagia Encounter for colorectal cancer screening COLONOSCOPY, DIAGNOSTIC (WRV U 3.26) Esophageal dysphagia Encounter for colorectal cancer screening documented as of this encounter Visit Diagnoses Not on filedocumented in this encounter Care Teams Shot Hole Shooter Relationship Specialty Start Date End Date Harjit Mcneil PA [address] [place] [address] PCP - General Internal Medicine 07/11/23 documented as of this encounter
--- OUTSIDE RECORDS SUMMARY | 2024-07-19 16:47 | XMS_ITS | Encounter Summary ---
Author Organization [facility] Address [facility] [address] [place] [address] Care Team Providers Care Collet Gluer Name Role Phone Tarun Harjit BRIDGETT Primary Care Provider [phone] Encounter Details Date Type Department Care Team (Latest Contact Info) Description 02/04/2024 1:23 PM EDT - 02/04/2024 11:59 PM EDT Hospital Encounter XRay at [address] [place] [address] Trish Nick MD [facility] [place] [address] Status post total replacement of left hip Discharge Disposition: Home Social History Tobacco Use [...] Sig Dispensed Refills Start Date End Date amLODIPine (Norvasc) 5 mg tablet 09/29/2023 hydroCHLOROthiazide [...] with spacer documented as of this encounter Plan of Treatment Scheduled Procedures Name Priority Associated Diagnoses Date/Ti me EGD, UPPER GI ENDOSCOPY (WRV U 2.09) Esophageal dysphagia Encounter for colorectal cancer screening COLONOSCOPY, DIAGNOSTIC (WRV U 3.26) Esophageal dysphagia Encounter for colorectal cancer screening documented as of this encounter Procedures Procedure Name Priority Date/Time Associated Diagnosis Comments XR PELVIS AND HIP 2 VIEWS LEFT Routine 02/04/2024 1:40 PM EDT Status post total replacement of left hip documented in this encounter Results * XR Pelvis and Hip 2 Views Left (02/04/2024 1:40 PM EDT) InhibOx Signature WORKSTATION ID [id number] RAD Anatomical Region Laterality Modality Pelvis, Hip Left Digital Radiogra phy Impressions 02/05/2024 10:21 AM EDT LEFT Unchanged and Uncomplicated total hip arthroplasty Thank you for letting us participate in the care of this patient. ??If you are a health care provider and have any questions regarding this report, please contact the number below. ??For patients who have questions please contact the health animal caregiver that requested your imaging first. ? Narrative 02/05/2024 10:21 AM EDT EXAMINATION: XR [...] patients who have questions please contactthe health animal caregiver that requested your imaging first. Electronically signed by: Elizabeth Santillan MD, [facility]([phone]), at 02/05/2024 10:21 AM Trish Nick MD IMG DX ORDERABLES documented in this encounter Visit Diagnoses Diagnosis Status post total replacement of left hip documented in this encounter Care Teams Collet Gluer Relationship Specialty Start Date End Date Harjit Mcneil PA [address] [place] [address] PCP - General Internal Medicine 07/11/23 documented as of this encounter
--- OUTSIDE RECORDS SUMMARY | 2024-07-19 16:47 | XMS_ITS | Encounter Summary ---
Author Organization [facility] [address] [place] [address] Care Team Providers Care Adobe Cq Developer Name Role Phone Harjit Mcneil Primary Care Provider [phone] Encounter Details Date Type Department Care Team (Latest Contact Info) Description 02/06/2024 1:00 PM EDT TH Visit (TeleHealth) [facility] [place] [address] Kyle Danielson MD [facility] [place] [address] Spinal stenosis, lumbar region with neurogenic claudication; Chronic pain syndrome; Radiculopathy of lumbar region; Lumbar facet arthropathy Social History Tobacco Use Types Packs/Day Years Used Date Smoking Tobacco: Former Cigarettes Q uit: 05/28/1970 Smokeless Tobacco: Never Alcohol Use Standard Drinks/Week Comments No 0 (1 standard drink = 0.6 oz pur e alcohol) Sex and Gender Information Value Date Recorded Sex Assigned at Not on file Gender Identity Not on file Sexual Orientation Not on file documented as of this encounter Progress Notes * Kyle Danielson MD - 02/06/2024 1:00 PM EDT [facility] follow-up visit note Name: Shree Ortez Jr. : 1950 Consulting Physician/Provider: Seeing at the request of Harjit Mcneil PA [address] [place] [address] Chief Complaint: Low back pain History of Present Illness: Patient was last seen in the clinic on 12/02/2023. Since his last visit, patient reports: -Physical therapy was ordered on last visit. Patient is currently undergoing physical therapy whichhas been somewhat beneficial. - He was referred to neurology by his primary care team and was evaluated by outside neurology clinic. Additional blood work was ordered and he has a follow- up scheduled to discuss his neuropathy andbalance issues. - Low back pain continues to be bothersome, impacts his function, quality of life and ADLs. - No other acute events or new [...] Ms. Redmond recommended he be seen in [facility] since it is closer to his house. He said there was lots of difficulty getting the referral sent to [facility], and it took many weeks to hear back. Then finally they said they had no openings until January. So he decided to come to [facility] instead. Last note from Nina Redmond, COLLISION MECHANIC 09/18/23 Shree Ortez Jr. is a pleasant [...] that interventional injection treatment be performed at [facility]. I think this is quite [...] legs intermittently, left worse than right Pain Rating: Moderate to severe Aggravating Factors: bending, lifting Relieving Factors: Tylenol, [...] being performed secondary to pain Other Treatment: Art Director Helpful? No History of Interventional Procedures/Surgery: Prior Surgery: No Injection History (date, procedure, %improvement): None Chart review: Today I have reviewed available medical information in the patient's medical record at [facility] including relevant provider notes, laboratory work, and imaging. Historical Review: I have reviewed the patient's past medical, surgical, social, and family history available in the EMR at this time along with supplemented information provided by the patient during the interview process today. Pertinent findings: Tobacco: Social History Tobacco Use Smoking Status Former Types: Cigarettes Quit date: 05/28/1970 Years since quittin.7 Smokeless Tobacco Never Alcohol: Social History Substance [...] symptoms, fevers, or weight changes. Physical Exam: Physical examination was suboptimal due to use of telephone call for the visit. Bilateral straight leg raise test negative Bilateral lumbar facet loading test negative Diagnostic Tests: Most recent Lumbar Spine MRI was completed on 07/03/23 at Outside Facility [facility] . In addition to the formal [...] plan to help this patient better manage his pain. Physical Therapy: Continue ongoing physical therapy which has been somewhat beneficial. Clinical Health Psychologist to address issues of relaxation, behavioral change, coping style, and other factors important to improvement: None at this point. Self Care Recommendations: Recommend compliance to exercises taught by physical therapy. Diagnostic Studies: None at this point Medication Management: No new medications Further procedures recommended: Patient will be scheduled for L5-S1 left paramedian interlaminar epidural steroid injection under fluoroscopy guidance. -Can consider L MBB/RFA in future. Referrals: Continue follow-up with outside neurology. Established care with spine surgery. Release of information: None Follow up: 4 weeks after the injection. Kyle Danielson MD [facility] [employer] [facility] Anesthesiology [facility] [employer] [address] [address] [facility] CONSENT FOR TELEHEALTH Telemedicine Appointment Although not required in [place], [place] has a telemedicine consent requirement. We are working on an automated process to obtain this I obtained the patient's consent to receiving health care services at [facility] through telemedicine. We discussed the opportunities and limitations of delivering health care services through telemedicine. I told the patient that the telemedicine service is being delivered over a secure connection, except in the event of emergency conditions when such requirements may be waived. Patient agreed to the participation of other individuals assisting with their care by telemedicine, if indicated. Patient informed that telemedicine informed consent form is available for patient's review in [facility]'s patient portal, [facility]. Opportunities include: improved access to medical care; limiting spread of COVID virus; increased patient convenience Limitations include: technical difficulties; need for a subsequent in-person visit due to transmission quality problems or need for physical examination not possible CC: Harjit Mcneil PA [address] [place] [address] documented in this encounter Plan of Treatment Scheduled Procedures Name Priority Associated Diagnoses Date/Ti me EGD, UPPER GI ENDOSCOPY (WRV U 2.09) Esophageal dysphagia Encounter for colorectal cancer screening COLONOSCOPY, DIAGNOSTIC (WRV U 3.26) Esophageal dysphagia Encounter for colorectal cancer screening documented as of this encounter Visit Diagnoses Diagnosis Spinal stenosis, lumbar region with neurogenic claudication Chronic pain syndrome Radiculopathy of lumbar region Thoracic or lumbosacral neuritis or radiculitis, unspecified Lumbar facet arthropathy Lumbosacral spondylosis without myelopathy documented in this encounter Care Teams Adobe Cq Developer Relationship Specialty Start Date End Date Harjit Mcneil PA [address] [place] [address] PCP - General Internal Medicine 07/11/23 documented as of this encounter
--- OUTSIDE RECORDS SUMMARY | 2024-07-19 16:48 | XMS_ITS | Encounter Summary ---
Author Organization [facility] Address [facility] [address] [place] [address] Care Team Providers Care Gaming Cage Worker Name Role Phone Duke Ramos MD Primary Care Provider [phone] Encounter Details Date Type Department Care Team (Late st Contact Info) Description 02/26/2018 Orders Only Urology at [facility] [place] [id number] Toni Akbar MD [facility] [place] [address] History of renal cell cancer Social History Tobacco Use Types Packs/Day Years [...] as of this encounter Results * XR Chest PA & Lateral (Generic) (06/29/2018 11:37 AM EDT) Anatomical Region Laterality Modality Chest N/A Digital Radiogra phy Impressions 06/29/2018 1:27 PM EDT No evidence of metastatic disease or other significant abnormality. Narrative 06/29/2018 1:27 PM EDT EXAMINATION: XR CHEST PA AND LATERAL (GENERIC) CLINICAL HISTORY: hx of renal cell cancer TECHNIQUE: Standing PA and lateral chest COMPARISON: 06/19/2017 FINDINGS: There is no interval change. The lungs remain clear. Cardial mediastinal silhouette is stable. No pleural effusion or significant bone abnormality is seen. Procedure Note Cedric Alonso MD - 06/29/2018 EXAMINATION: XR CHEST PA AND LATERAL (GENERIC) CLINICAL HISTORY: hx of renal cell cancer TECHNIQUE: Standing PA and lateral chest COMPARISON: 06/19/2017 FINDINGS: There is no interval change. The lungs remain clear. Cardial mediastinal silhouette is stable. No pleural effusion or significant bone abnormalityis seen. IMPRESSION No evidence of metastatic disease or other significant abnormality. Toni Akbar MD IMG DX ORDERABLES documented in this encounter Visit Diagnoses Diagnosis History of renal cell cancer History of renal cell cancer documented in this encounter Care Teams Gaming Cage Worker Relationship Specialty Start Date End Date Duke Ramos MD [address] [place] [address] PCP - General Family Medicine 08/23/16 06/28/18 documented as of this encounter
--- OUTSIDE RECORDS SUMMARY | 2024-07-19 16:48 | XMS_ITS | Encounter Summary ---
Author Organization [facility] [place] [address] Care Team Providers Care Firebrick And Refractory Tile Repairer Name Role Phone Amelia Goodwin APRN Primary Care Provider + Encounter Details Date Type Department Care Team (Latest Contact Info) Description 06/29/2018 11:30 AM EDT Laboratory Appointment Lab 3L [facility] [place] [address] Renal cell carcinoma, unspecified laterality Social History Tobacco Use Types Packs/Day [...] Scheduled Procedures Name Priority Associated Diagnoses Date/Ti sd EGD, UPPER GI ENDOSCOPY (WRV U 2.09) Esophageal dysphagia Encounter for colorectal cancer screening COLONOSCOPY, DIAGNOSTIC (WRV U 3.26) Esophageal dysphagia Encounter for colorectal cancer screening documented as of this encounter Procedures Procedure Name Priority Date/Time Associated Diagnosis Comments BASIC METABOLIC PANEL STAT 06/29/2018 11:44 AM EDT Renal cell carcinoma, unspecified laterality documented in this encounter Results * (ABNORMAL) Basic Metabolic Panel (non-fasting) (06/29/2018 11:44 AM EDT) Glucose 92 65 - 199 mg/dL [facility] Comment:Diabetes: >=200 mg/d L plus symptoms Blood Urea Nitrogen 19 10 - 20 mg/dL [facility] Creatinine 1.51(H) 0.80 - 1.50 mg/dL [facility] Sodium 140 135 - 145 mmol/L [facility] Potassium 4.8 3.5 - 5.0 mmol/L [facility] Comment: Please note: ??Patients with WBC >100,000 may have falsely elevated Potassium levels. ??For accurate Potassium quantification in these patients send serum separator tube (gold top) for subsequent determinations. ??Contact the Clinical Chemistry Laboratory if there are any questions. Chloride 104 98 - 107 mmol/L [facility] Carbon Dioxide 26 22 - 31 mmol/L [facility] Anion Gap 10 5 - 15 mmol/L [facility] Calcium 9.2 8.5 - 10.5 mg/dL [facility] Est Glomerular Filtration Rate 47(L) >=60 mL/min/1. 73 m?? [facility] Comment: The eGFR was calculated using the CKD-EPI equation. As with all creatinine based estimates of kidney function, eGFR values calculated with the CKD-EPI equation are not accurate in patients with acute kidney failure, extremes of body mass or the acutely ill. [email or web address] eGFR 54(L) >=60 mL/min/1. 73 m?? [facility] Comment: The eGFR was calculated using the CKD-EPI equation. As with all creatinine based estimates of kidney function, eGFR values calculated with the CKD-EPI equation are not accurate in patients with acute kidney failure, extremes of body mass or the acutely ill. [email or web address] Blood specimen (specimen) 06/29/2018 11:44 AM EDT 06/29/2018 11:55 AM EDT Narrative Resulting Agency Comment Spec In Lab Toni Akbar MD CHEMISTRY ORDERABL ES [facility] [place] [address] documented in this encounter Visit Diagnoses Diagnosis Renal cell carcinoma, unspecified laterality documented in this encounter Care Teams Firebrick And Refractory Tile Repairer Relationship Specialty Start Date End Date Amelia Goodwin APRN [address] [place] [address] PCP - General Family Medicine 06/29/18 05/21/20 documented as of this encounter
--- OUTSIDE RECORDS SUMMARY | 2024-07-19 16:48 | XMS_ITS | Encounter Summary ---
Author Organization [facility] [address] [address] Care Team Providers Care Parts Counter Sales Person Name Role Phone Norma Murdock APRN Primary Care Provider [phone] Encounter Details Date Type Department Care Team (Late st Contact Info) Description 08/16/2020 2:40 PM EST Ancillary Procedure Radiology Library at [facility] [place] [id number] Norma Murdock APRN [address] [place] [address] Social History Tobacco Use Types Packs/Day Years [...] Diagnosis Comments FILM LIBRARY STORAGE ONLY DX CHEST Routine 08/16/2020 2:36 PM EST documented in this encounter Results * Film Library- Storage Only DX Chest (08/16/2020 2:36 PM EST) Narrative [facility] - 08/16/2020 2:36 PM EST This exam is auto-finalizing. It's purpose is for storage only. Norma Murdock APRN [place] FILM LIBRARY ORD ERABLES [facility] [place], [place] documented in this encounter Visit Diagnoses Not on filedocumented in this encounter Care Teams Parts Counter Sales Person Relationship Specialty Start Date End Date Norma Murdock APRN [address] [place] [address] PCP - General Family Medicine 05/22/20 07/10/23 documented as of this encounter
--- OUTSIDE RECORDS SUMMARY | 2024-07-19 16:48 | XMS_ITS | Encounter Summary ---
Author Organization [facility] [place] [address] Care Team Providers Care University Administrative Assistant Name Role Phone Norma Murdock VERONICA Primary Care Provider [phone] Reason for Referral * Diagnostic Test (Routine) - Closed Specialty Diagnoses / Procedures Referred By Ugo maynard Referred To Contact Radiology Diagnoses Renal cell carcinoma, unspecified laterality Procedures CT Abdomen w Contrast CT Abdomen wwo Contrast Toni Akbar MD [facility] [place] [place] [address] [facility] [place] [address] Referral ID Status Reason Start Date Expiration Date V isits Requested Visits Authorized [id number] Closed Specialty Service Requested 06/21/2020 12/19/2021 1 1 Reason for Visit * Diagnostic Test (Routine) - Closed Specialty Diagnoses / Procedures Referred By Ugo maynard Referred To Contact Radiology Diagnoses Renal cell carcinoma, unspecified laterality Procedures CT Abdomen w Contrast CT Abdomen o Contrast Toni Akbar MD [facility] [place] [address] [facility] [place] [address] Referral ID Status Reason Start Date Expiration Date V isits Requested Visits Authorized [id number] Closed Specialty Service Requested 06/21/2020 12/19/2021 1 1 Encounter Details Date Type Department Care Team (Latest Contact Info) Description 08/09/2020 1:09 PM EST - 08/09/2020 11:59 PM EST Hospital [place] [address] Toni Akbar MD [facility] [place] [address] Renal cell carcinoma, unspecified laterality Discharge Disposition: Home Social History Tobacco Use [...] Sig Dispensed Refills Start Date End Date terazosin (HYTRIN) 2 mg Capsule 11/11/2018 acetaminophen [...] Procedure Name Priority Date/Time Associated Diagnosis Comments CT ABDOMEN W CONTRAST Routine 08/09/2020 2:46 PM EST Renal cell carcinoma, unspecified laterality documented in this encounter Results * CT Abdomen w Contrast (08/09/2020 2:46 PM EST) Anatomical Region Laterality Modality Abdomen Computed Tomogra phy Impressions 08/09/2020 4:15 PM EST Stable exam. No evidence of local recurrence or metastasis within the abdomen. I have personally reviewed the image(s) and the resident's interpretation and agree with the findings, Jorge Block MD at 08/09/2020 4:15 PM Thank you for letting us participate in the care of this patient. For questions regarding this report, please contact the number below. ? Electronically signed by: Jorge Block MD, [facility] ([phone]), at 08/09/2020 4:15 PM Narrative 08/09/2020 4:15 PM EST EXAMINATION: CT ABDOMEN W CONTRAST CLINICAL HISTORY: Urologic cancer, surveillance TECHNIQUE: Helical CT of the abdomen was performed following the intravenous administration of contrast. A total of 109 mL of intravenous Omnipaque 350 was administered. Oral contrast was not administered. COMPARISON: CT abdomen and pelvis 06/29/2018 FINDINGS: Lower chest: Normal. Liver: Normal size and attenuation without lesions. Patent portal and hepatic veins. Bile ducts: No intrahepatic or extrahepatic biliary ductal dilation. Gallbladder: No calcified gallstones. Normal caliber wall. Pancreas: Normal attenuation without ductal dilatation. Spleen: Normal. Adrenal: Stable mild nodularity of the left adrenal gland dating back to at least 2016. Normal right adrenal gland. Kidneys: Status post left nephrectomy. No evidence of recurrence within the left kidney resection bed. Normal right kidney nephrogram. No right hydronephrosis or proximal hydroureter. No right renal calculi. Vasculature: No abdominal aortic aneurysm. Lymph nodes: No pathologically enlarged lymph nodes. Bowel: No dilated loops of small large bowel within the visualized abdomen. Peritoneum and mesentery: No ascites, free air, or loculated fluid collection within the visualized abdomen. No mesenteric inflammation. Abdominal wall: Normal. Osseous structures: No suspicious lesions. Procedure Note Jorge Block MD - 08/09/2020 EXAMINATION: CT ABDOMEN W CONTRAST CLINICAL HISTORY: Urologic cancer, surveillance TECHNIQUE: Helical CT of the abdomen was performed following theintravenous administration of contrast. A total of 109 mL of intravenous Omnipaque 350was administered. Oral contrast was not administered. COMPARISON: CT abdomen and pelvis 06/29/2018 FINDINGS: Lower chest: Normal. Liver: Normal size and attenuation without lesions. Patent portal andhepatic veins. Bile ducts: No intrahepatic or extrahepatic biliary ductal dilation. Gallbladder: No calcified gallstones. Normal caliber wall. Pancreas: Normal attenuation without ductal dilatation. Spleen: Normal. Adrenal: Stable mild nodularity of the left adrenal gland dating back toat least 2015. Normal right adrenal gland. Kidneys: Status post left nephrectomy. No evidence of recurrence withinthe left kidney resection bed. Normal right kidney nephrogram. No righthydronephrosis or proximal hydroureter. No right renal calculi. Vasculature: No abdominal aortic aneurysm. Lymph nodes: No pathologically enlarged lymph nodes. Bowel: No dilated loops of small large bowel within the visualizedabdomen. Peritoneum and mesentery: No ascites, free air, or loculated fluidcollection within the visualized abdomen. No mesenteric inflammation. Abdominal wall: Normal. Osseous structures: No suspicious lesions. IMPRESSION Stable exam. No evidence of local recurrence or metastasis within theabdomen. I have personally reviewed the image(s) and the resident's interpretationand agree with the findings, Jorge Block MD at 08/09/2020 4:15 PM Thank you for letting us participate in the care of this patient. Forquestions regarding this report, please contact the number below. Electronically signed by: Jorge Block MD, [facility]([phone]), at 08/09/2020 4:15 PM Toni Akbar MD [facility] [place] CT ORDERABLES documented in this encounter Visit Diagnoses Diagnosis Renal cell carcinoma, unspecified laterality documented in this encounter Administered Medications Inactive Administered Medications - up to 3 most recent administrations Medication Order MAR Action Action Date Dose Rate Site iohexoL (Omnipaque) 350 mg/mL solution 0-200 mL 0-200 mL, Intravenous, ONCE PRN, 1 dose, Starting on Fri08/09/20 at 1424, Until Fri08/09/20 at 1446, Per Protocol, Warning Vesicant/Irritant Medication , Radiology Contrast, Routine Given 08/09/2020 2:46 PM EST 109 mLs documented in this encounter Care Teams University Administrative Assistant Relationship Specialty Start Date End Date Norma Murdock APRN [address] [place] [address] PCP - General Family Medicine 05/22/20 07/10/23 documented as of this encounter
--- OUTSIDE RECORDS SUMMARY | 2024-07-19 16:48 | XMS_ITS | Encounter Summary ---
Author Organization [facility] [place] [address] Care Team Providers Care Child Advocate Name Role Phone Norma Murdock APRN Primary Care Provider [phone] Reason for Visit * Consultation (Routine) - Closed Specialty Diagnoses / Procedures Referred By Ugo maynard Referred To Contact Gastroenterology Diagnoses Dyskinesia of esophagus Norma Murdock APRN [address] [place] [address] [facility] [address] [place] [address] Referral ID Status Reason Start Date Expiration Date V isits Requested Visits Authorized [id number] Closed Consult, [facility] & [facility] PCP Updated and/or Approved 08/07/2021 08/07/2022 12 12 Encounter Details Date Type Department Care Team (Late st Contact Info) Description 10/16/2021 1:00 PM EST Office [place] [address] Jennifer Roberts [facility] [address] [place] [address] Esophageal dysphagia; Encounter for colorectal cancer screening Social History Tobacco Use Types Packs/Day Years [...] Sign Reading Time Taken Comments Blood Pressure 163/90 10/16/2021 12:45 PM EST Pulse 76 10/16/2021 12:45 PM EST Temperature - - Respiratory Rate - - Oxygen Saturation - - Inhaled Oxygen Concentration - - Weight 94.8 kg (209 lb) 10/16/2021 12:45 PM EST Height - - Body Mass Index 31.79 10/08/2021 2:12 PM EST documented in this encounter Patient Instructions * Patient Instructions* Jennifer Roberts APRN - 10/16/2021 1:00 PM EST 1. Pantoprazole 20mg once daily 30-60 minutes prior to eating first meal of the day. 2. Warm peppermint tea before and with meals 3. Upper endoscopy and colonoscopy with IV sedation later on this year. Our schedulers will most likely call you to schedule an appointment. If you don't hear from them within the next few weeks, please give them a call. 4. Follow up with me a few weeks after upper endoscopy and colonoscopy documented in this encounter Progress Notes * Jennifer Roberts APRN - 10/16/2021 1:00 PM EST Chief Complaint: Shree Ortez Jr. is a 71 y.o. patient referred for consultation by Dr. Mathieu gould of esophagus History of Present Illness: 71 y.o. male with a history significant for osteoarthritis, amputation of finger tip, left inguinal hernia repair. Longstanding esophageal dysphagia for approximately 8 years. Primarily with solids. Occurring most days. Occasional coughing and choking. Denies heartburn. Good appetite. Denies early satiety. Deniesunintentional weight loss. Denies chronic NSAID use. Denies nausea and vomiting. Denies bloating and gas. He endorses that he is edentulous. Denies diarrhea. Denies constipation. Denies hematochezia/melena. Denies abdominal pain. Was previously taking cardizem for this issue. I couldn't deal with it. Review of systems: 14-system ROS reviewed and negative except as above Medications: Outpatient Medications Prior to Visit Medication Sig Dispense Refill ??? inhalational spacing device Spacer by NOT APPLICABLE route. ??? terazosin (HYTRIN) 2 mg Capsule ??? acetaminophen (TYLENOL) 500 mg Tablet Take 2 tablets by mouth every 8 hours. Around the clock until 01/25/17, and then as needed. DO NOT EXCEED 3000 mg tylenol in a 24 hour period. ??? albuterol (PROVENTIL HFA;VENTOLIN HFA;PROAIR) 90 mcg/actuation HFA Aerosol Inhaler Inhale 2 puffs into the lungs every 4 hours as needed for Wheezing. Use with spacer No facility-administered medications prior to visit. Allergies: is allergic to amitriptyline, diltiazem, and lisinopril. Past Medical History: has a past medical history of Cancer of kidney and HTN (hypertension). Past Surgical History: has a past surgical history that includes Lap, Radical Nephrectomy (12707) (06/07/2014); Colonoscopy, Diagnostic (88528) (N/A, 09/26/2014); Upper Gi Endoscopy, Biopsy (41237) (N/A, 09/26/2014); Appendectomy (1972); total nephrectomy (Left, 06/07/14); cyst removal; Repair Ing Hernia, 5+Y/O, Reducibl (47299) (Left, 07/07/2015); (Left, 07/07/2015); Total Hip Arthroplasty (93607) (Left, 01/15/2017); and Radex Hip Unilateral With Pelvis Minimum 4 Views (69363) (Left, 01/15/2017). Family History: Brother- CRC? denies family history of colon cancer, IBD, or celiac disease in mother father or other family members Social History: reports that he quit smoking about 51 years ago. He has never used smokeless tobacco. He reports that he does not drink alcohol and does not use drugs. Physical Exam: VITAL SIGNS: BP 163/90 Pulse 76 Wt 94.8 kg (209 lb) BMI 31.79 kg/m?? BMI: Body mass index is 31.79 kg/m??. Gen: nad, normal body habitus Eyes: no scleral icterus Neurologic: intact to light touch Psych: appropriate affect, a+ox3 Questionnaire: No flowsheet data found. Laboratory studies, imaging, and procedures (my review of prior records): 1. High-resolution esophageal manometry 12/16/2014; diffuse esophageal spasm 2. EGD 09/26/2014 normal esophagus. Z-line regular. Single gastric polyp. Normal examined duodenum. Biopsy gastric polyp with hyperplastic polyp no evidence of H. pylori 3. Colonoscopy 09/26/2014; 2 polyps. One in ascending colon. 1 in transverse colon. Biopsies consistent with hyperplastic polyps Assessment/Plan: Mr. Ortez is a 71 y.o. patient with the following gastrointestinal issues: 1. Longstanding seven year history of esophageal dysphagia primarily with solids occurring most days with an unremarkable EGD in 2014 and esophageal spasms on HREM on 12/16/14. He denies current NSAIDuse. We discussed how symptoms may be secondary to silent reflux versus evolving esophageal motor disorder. We discussed the importance of re-evaluating luminal mucosa with EGD as I cannot rule out GERD or García's esophagus. 2. History of colonic polyps with family history of CRC. We discussed the importance of colorectal cancer surveillance given his history. Overall, I am reassured by the absence of red flag warning signs. Recommendations: --Pantoprazole 20mg once daily 30-60 minutes prior to eating first meal of the day. --Warm peppermint tea before and with meals --EGD and colonoscopy with IV sedation to evaluate for GERD, García's, gastritis, and PUD --Consider HREM and pH testing pending response to PPI and results of EGD --Follow up with me a few weeks after EGD and colonoscopy Jennifer Roberts APR[place] [facility] [place] [address] documented in this encounter Plan of Treatment Scheduled Orders Name Type Priority Associated Diagnoses Orde r Schedule ENDOSCOPY CASE REQUEST: EGD, UPPER GI ENDOSCOPY, COLONOSCOPY, DIAGNOSTIC Procedures Routine Esophageal dysphagia Encounter for colorectal cancer screening Ordered: 10/16/2021 Scheduled Procedures Name Priority Associated Diagnoses Date/Ti ar EGD, UPPER GI ENDOSCOPY (WRV U 2.09) Esophageal dysphagia Encounter for colorectal cancer screening COLONOSCOPY, DIAGNOSTIC (WRV U 3.26) Esophageal dysphagia Encounter for colorectal cancer screening documented as of this encounter Visit Diagnoses Diagnosis Esophageal dysphagia Dysphagia, pharyngoesophageal phase Encounter for colorectal cancer screening Special screening for malignant neoplasms, colon documented in this encounter Care Teams Child Advocate Relationship Specialty Start Date End Date Norma Murdock APRN [address] [place] [address] PCP - General Family Medicine 05/22/20 07/10/23 documented as of this encounter
--- OUTSIDE RECORDS SUMMARY | 2024-07-19 16:48 | XMS_ITS | Encounter Summary ---
Author Organization [facility] [place] [address] Care Team Providers Care Pulmonary Specialist Name Role Phone Duke Ramos MD Primary Care Provider [phone] Reason for Referral * Diagnostic Test (Routine) - Closed Specialty Diagnoses / Procedures Referred By Contac t Referred To Contact Radiology Diagnoses Renal cancer, unspecified laterality Procedures CT Abdomen & Pelvis w Contrast Toni Akbar MD [facility] [place] [place] [address] [facility] [address] Referral ID Status Reason Start Date Expiration Date V isits Requested Visits Authorized Closed Specialty Service Requested 06/18/2017 06/18/2018 1 1 Reason for Visit * Diagnostic Test (Routine) - Closed Specialty Diagnoses / Procedures Referred By Contac t Referred To Contact Radiology Diagnoses Renal cancer, unspecified laterality Procedures CT Abdomen & Pelvis w Contrast Toni Akbar MD [facility] [place] [address] [facility] [address] Referral ID Status Reason Start Date Expiration Date V isits Requested Visits Authorized [id number] Closed Specialty Service Requested 06/18/2017 06/18/2018 1 1 Encounter Details Date Type Department Care Team (Latest Contact Info) Description 06/19/2017 12:34 PM EDT - 06/19/2017 11:59 PM EDT Hospital [place] [address] Jarocho Jenkins MD [address] [place] [address] Renal cancer, unspecified laterality Discharge Disposition: Home Social History [...] Sig Dispensed Refills Start Date End Date acetaminophen (TYLENOL) 500 mg Tablet Take 2 tablets by mouth every 8 hours. Around the clock until 01/25/17, and then as needed. DO NOT EXCEED 3000 mg tylenol in a 24 hour period. 01/17/2017 albuterol (PROVENTIL HFA;VENTOLIN HFA;PROAIR) 90 mcg/actuation HFA Aerosol Inhaler Inhale 2 puffs into the lungs every 4 hours as needed for Wheezing. Use with spacer terazosin (HYTRIN) 1 mg capsule Take 1 mg by mouth nightly. 01/14/2019 documented as of this encounter Plan of Treatment Scheduled Procedures Name Priority Associated Diagnoses Date/Ti me EGD, UPPER GI ENDOSCOPY (WRV U 2.09) Esophageal dysphagia Encounter for colorectal cancer screening COLONOSCOPY, DIAGNOSTIC (WRV U 3.26) Esophageal dysphagia Encounter for colorectal cancer screening documented as of this encounter Procedures Procedure Name Priority Date/Time Associated Diagnosis Comments CT ABDOMEN AND PELVIS W CONTRAST Routine 06/19/2017 2:08 PM EDT Renal cancer, unspecified laterality documented in this encounter Results * CT Abdomen & Pelvis w Contrast (06/19/2017 2:08 PM EDT) Anatomical Region Laterality Modality Abdomen, Pelvis Computed Tomogra phy Impressions 06/19/2017 3:00 PM EDT No evidence of recurrent or metastatic disease within the abdomen and pelvis. Narrative 06/19/2017 3:00 PM EDT EXAMINATION: ??CT ABDOMEN AND PELVIS W CONTRAST CLINICAL HISTORY: ??surveillance RCC s/p nephrectomy TECHNIQUE: Helical CT of the abdomen and pelvis was performed following the intravenous administration of contrast. 107 cc of Omnipaque 350 was given. No oral contrast. COMPARISON: ??October 22, 2016 FINDINGS: LOWER CHEST: Lung bases are normal. ABDOMEN AND PELVIS: Normal findings of the liver, gallbladder, and bile ducts. Stable spleen with a small hypodensity at the most cranial aspect, which is unchanged. Normal adrenal glands and normal right kidney. Left kidney is absent. No evidence of tumor recurrence in the renal bed. No abnormal enlargement of lymph nodes within the abdomen or pelvis. Normal caliber and contour of the abdominal aorta. Urinary bladder is partially filled and unremarkable. SKELETON: Stable degenerative changes of the spine. No aggressive appearing osseous lesion. Partially visualized left total hip arthroplasty with respective artifacts. Procedure Note Tiffany Guadarrama MD - 06/19/2017 EXAMINATION: CT ABDOMEN AND PELVIS W CONTRAST CLINICAL HISTORY: surveillance RCC s/p nephrectomy TECHNIQUE: Helical CT of the abdomen and pelvis was performed followingthe intravenous administration of contrast. 107 cc of Omnipaque 350 was given.No oral contrast. COMPARISON: October 22, 2016 FINDINGS: LOWER CHEST: Lung bases are normal. ABDOMEN AND PELVIS: Normal findings of the liver, gallbladder, and bile ducts. Stable spleenwith a small hypodensity at the most cranial aspect, which is unchanged. Normal adrenal glands and normal right kidney. Left kidney is absent. No evidence of tumor recurrence in the renal bed. No abnormal enlargement oflymph nodes within the abdomen or pelvis. Normal caliber and contour of the abdominal aorta. Urinary bladder ispartially filled and unremarkable. SKELETON: Stable degenerative changes of the spine. No aggressive appearingosseous lesion. Partially visualized left total hip arthroplasty with respective artifacts. IMPRESSION No evidence of recurrent or metastatic disease within the abdomen andpelvis. Toni Akbar MD [facility] [place] CT ORDERABLES documented in this encounter Visit Diagnoses Diagnosis Renal cancer, unspecified laterality documented in this encounter Administered Medications Inactive Administered Medications - up to 3 most recent administrations Medication Order MAR Action Action Date Dose Rate Site iohexol (OMNIPAQUE) 350 mg/mL solution 0-200 mL 0-200 mL, Intravenous, ONCE PRN, 1 dose, Starting on Natty 06/19/17 at 1408, Until Natty 06/19/17 at 1408, Per Protocol, Warning Vesicant/Irritant Medication , Radiology Contrast, Routine Given 06/19/2017 2:08 PM EDT 107 mLs documented in this encounter Care Teams Pulmonary Specialist Relationship Specialty Start Date End Date Duke Ramos MD [address] [place] [address] PCP - General Family Medicine 08/23/16 06/28/18 documented as of this encounter
--- OUTSIDE RECORDS SUMMARY | 2024-07-19 16:48 | XMS_ITS | Encounter Summary ---
Author Organization [facility] Address [facility] [address] [address] Care Team Providers Care Architect Naval Name Role Phone Norma Murdokc APRN Primary Care Provider [phone] Encounter Details Date Type Department Care Team (Latest Contact Info) Description 01/18/2021 11:39 AM EDT - 01/18/2021 11:59 PM EDT Hospital Encounter XRay at [address] [place] [address] Pineda Montague MD Left hip pain Discharge Disposition: Home Social History Tobacco Use [...] PELVIS AND HIP 2 VIEWS LEFT Routine 01/18/2021 12:03 PM EDT Left hip pain documented in this encounter Results * XR Pelvis and Hip 2 Views Left (01/18/2021 12:03 PM EDT) Anatomical Region Laterality Modality Pelvis, Hip Left Digital Radiogra phy Impressions 01/18/2021 1:55 PM EDT Status post left total hip arthroplasty without radiographic finding of complication or acute abnormality. Thank you for letting us participate in the care of this patient. ??If you are a health care provider and have any questions regarding this report, please contact the number below. ??For patients who have questions please contact the health caregiver assisted living that requested your imaging first. ? Electronically signed by: Kristan Guerrero MD, [facility] ([phone]), at 01/18/2021 1:55 PM Narrative 01/18/2021 1:55 PM EDT EXAMINATION: XR PELVIS AND HIP 2 VIEWS LEFT CLINICAL HISTORY: L HIP PAIN TECHNIQUE: 3 views of the pelvis and hips COMPARISON: Radiographs January 15, 2017; January 01, 2018 and January 14, 2019; CT abdomen and pelvis June 29, 2018 FINDINGS: Noncemented left total hip arthroplasty hardware is intact without adjacent lucency, periprosthetic fracture, change in position or joint malalignment. The femoral head component is symmetrically seated in the acetabular cup. Bones are intact with mildly decreased mineralization. Lower lumbar spondylosis and right hip osteoarthropathy are unchanged. No focal soft tissue abnormality. Procedure Note Kristan Guerrero MD - 01/18/2021 EXAMINATION: XR PELVIS AND HIP 2 VIEWS LEFT CLINICAL HISTORY: L HIP PAIN TECHNIQUE: 3 views of the pelvis and hips COMPARISON: Radiographs January 15, 2017; January 01, 2018 and January 14, 2019; CT abdomenand pelvis June 29, 2018 FINDINGS: Noncemented left total hip arthroplasty hardware is intact withoutadjacent lucency, periprosthetic fracture, change in position or jointmalalignment. The femoral head component is symmetrically seated in the acetabular cup. Bones are intact with mildly decreased mineralization. Lower lumbarspondylosis and right hip osteoarthropathy are unchanged. No focal soft tissueabnormality. IMPRESSION Status post left total hip arthroplasty without radiographic finding of complication or acute abnormality. Thank you for letting us participate in the care of this patient. If youare a health care provider and have any questions regarding this report,please contact the number below. For patients who have questions please contactthe health caregiver assisted living that requested your imaging first. Electronically signed by: Kristan Guerrero MD, [facility]([phone]), at 01/18/2021 1:55 PM Pineda Montague MD IMG DX ORDERABLES documented in this encounter Visit Diagnoses Diagnosis Left hip pain Pain in joint, pelvic region and thigh documented in this encounter Care Teams Architect Naval Relationship Specialty Start Date End Date Norma Murdock APRN [address] [place] [address] PCP - General Family Medicine 05/22/20 07/10/23 documented as of this encounter
--- OUTSIDE RECORDS SUMMARY | 2024-07-19 16:48 | XMS_ITS | Encounter Summary ---
Author Organization [facility] Address [facility] [address] [place] [address] Care Team Providers Care Egyptologist Name Role Phone Norma Murdock APRN Primary Care Provider Encounter Details Date Type Department Care Team (Latest Contact Info) Description 08/09/2020 12:24 PM EST - 08/09/2020 1:08 PM [facility] Hospital Encounter XRay at [address] [place] [address] Toni Akbar MD [facility] [place] [address] Renal cell carcinoma, unspecified laterality Discharge Disposition: [...] Name Priority Date/Time Associated Diagnosis Comments XR CHEST PA AND LATERAL Routine 08/09/2020 12:39 PM EST Renal cell carcinoma, unspecified laterality documented in this encounter Results * XR Chest PA & Lateral (Generic) (08/09/2020 12:39 PM EST) Anatomical Region Laterality Modality Chest N/A Digital Radiogra phy Impressions 08/09/2020 2:14 PM EST Suspected nipple shadows mimicking pulmonary nodules. Recommend repeat chest radiograph with nipple markers. I have personally reviewed the image(s) and the resident's interpretation and agree with the findings, Nafisa Dobbs MD at 08/09/2020 2:14 PM Thank you for letting us participate in the care of this patient. For questions regarding this report, please contact the number below. ? Electronically signed by: Nafisa Dobbs MD, [facility] ([phone]), at 08/09/2020 2:14 PM Narrative 08/09/2020 2:14 PM EST EXAMINATION: XR CHEST PA AND LATERAL (GENERIC) CLINICAL HISTORY: history of RCC s/p left nephrectomy TECHNIQUE: PA and lateral views of the chest COMPARISON: 2 view x-ray chest 06/29/2018 FINDINGS: Nodular opacities right greater than left projected both lower lobes. On the right, in retrospect this is partially visualized in November 2014. The cardiac silhouette, pleura, kalpana, and pulmonary vasculature are within normal limits. Focally expanded posterior lateral left eighth rib contour without cortical destruction is stable. This may reflect an old healed rib fracture and is stable dating back to CT scan of June 2018. Procedure Note Nafisa Dobbs MD - 08/09/2020 EXAMINATION: XR CHEST PA AND LATERAL (GENERIC) CLINICAL HISTORY: history of RCC s/p left nephrectomy TECHNIQUE: PA and lateral views of the chest COMPARISON: 2 view x-ray chest 06/29/2018 FINDINGS: Nodular opacities right greater than left projected both lower lobes. Onthe right, in retrospect this is partially visualized in November 2014. Thecardiac silhouette, pleura, kalpana, and pulmonary vasculature are within normallimits. Focally expanded posterior lateral left eighth rib contour withoutcortical destruction is stable. This may reflect an old healed rib fracture and isstable dating back to CT scan of June 2018. IMPRESSION Suspected nipple shadows mimicking pulmonary nodules. Recommend repeatchest radiograph with nipple markers. I have personally reviewed the image(s) and the resident's interpretationand agree with the findings, Nafisa Dobbs MD at 08/09/2020 2:14 PM Thank you for letting us participate in the care of this patient. Forquestions regarding this report, please contact the number below. Electronically signed by: Nafisa Dobbs MD, [facility]([phone]), at 08/09/2020 2:14 PM Toni Akbar MD IMG DX ORDERABLES documented in this encounter Visit Diagnoses Diagnosis Renal cell carcinoma, unspecified laterality documented in this encounter Care Teams Egyptologist Relationship Specialty Start Date End Date Norma Murdock APRN [address] [place] [address] PCP - General Family Medicine 05/22/20 07/10/23 documented as of this encounter
--- OUTSIDE RECORDS SUMMARY | 2024-07-19 16:48 | XMS_ITS | Encounter Summary ---
Author Organization [facility] [place] [address] Care Team Providers Care Sack Keeper Name Role Phone Norma Murdock VERONICA Primary Care Provider [phone] Reason for Referral * Diagnostic Test (Routine) - Closed Specialty Diagnoses / Procedures Referred By Contlesli t Referred To Contact Radiology Diagnoses Renal cell carcinoma, unspecified laterality Procedures CT Abdomen w Contrast CT Abdomen wwo Contrast Toni Akbar MD [facility] [place] [place] [address] [facility] [place] [address] Referral ID Status Reason Start Date Expiration Date V isits Requested Visits Authorized [id number] Closed Specialty Service Requested 06/21/2020 12/19/2021 1 1 Encounter Details Date Type Department Care Team (Late st Contact Info) Description 06/21/2020 [place] [address] Toni Akbar MD [facility] [place] [place] [address] Renal cell carcinoma, unspecified laterality Social History [...] documented as of this encounter Results * CT Abdomen w [...] ? Electronically signed by: Jorge Block MD, [facility] ([phone]), at 08/09/2020 4:15 PM Narrative 08/09/2020 4:15 [...] adrenal gland dating back to at least 2015. Normal right adrenal gland. Kidneys: [...] below. Electronically signed by: Jorge Block MD, [facility]([phone]), at 08/09/2020 4:15 PM Toni Akbar MD IMG CT ORDERABLES * (ABNORMAL) Basic Metabolic Panel (non-fasting) (08/09/2020 1:03 PM EST) Glucose 103 65 - 199 mg/dL [facility] Comment:Diabetes: >=200 mg/d L plus symptoms Blood Urea Nitrogen 20 10 - 20 mg/dL [facility] Creatinine 1.20 0.80 - 1.50 mg/dL [facility] Sodium 140 135 - 145 mmol/L [facility] Potassium 4.3 3.5 - 5.0 mmol/L [facility] Comment: Please note: ??Patients with WBC >100,000 may have falsely elevated Potassium levels. ??For accurate Potassium quantification in these patients send serum separator tube (gold top) for subsequent determinations. ??Contact the Clinical Chemistry Laboratory if there are any questions. Chloride 108(H) 98 - 107 mmol/L [facility] Carbon Dioxide 25 22 - 31 mmol/L [facility] Anion Gap 7 5 - 15 mmol/L [facility] Calcium 9.1 8.5 - 10.5 mg/dL [facility] Est Glomerular Filtration Rate 61 >=60 mL/min/1. 73 m?? [facility] Comment: The eGFR was calculated using the CKD-EPI equation. As with all creatinine based estimates of kidney function, eGFR values calculated with the CKD-EPI equation are not accurate in patients with acute kidney failure, extremes of body mass or the acutely ill. http://[employer]/[facility] eGFR 71 >=60 mL/min/1. 73 m?? [facility] Comment: The eGFR was calculated using the CKD-EPI equation. As with all creatinine based estimates of kidney function, eGFR values calculated with the CKD-EPI equation are not accurate in patients with acute kidney failure, extremes of body mass or the acutely ill. http://[employer]/[facility] Blood specimen (specimen) 08/09/2020 1:03 PM EST 08/09/2020 1:11 PM EST Narrative Resulting Agency Comment Spec In Lab Toni Akbar MD CHEMISTRY ORDERABL ES [facility] [place] [address] * XR Chest PA & Lateral (Generic) [...] report, please contact the number below. ? Narrative 08/09/2020 2:14 PM EST EXAMINATION: XR [...] below. Electronically signed by: Nafisa Dobbs MD, [facility]([phone]), at 08/09/2020 2:14 PM Toni Akbar MD IMG DX ORDERABLES documented in this encounter Visit Diagnoses Diagnosis Renal cell carcinoma, unspecified laterality Renal cell carcinoma, unspecified laterality Renal cell carcinoma, unspecified laterality documented in this encounter Care Teams Sack Keeper Relationship Specialty Start Date End Date Norma Murdock APRN [address] [place] [address] PCP - General Family Medicine 05/22/20 07/10/23 documented as of this encounter
--- OUTSIDE RECORDS SUMMARY | 2024-07-19 16:48 | XMS_ITS | Encounter Summary ---
Author Organization [facility] Address [facility] [address] [place] [address] Care Team Providers Care Fruit Grader Name Role Phone Duke Ramos MD Primary Care Provider [phone] Encounter Details Date Type Department Care Team (Latest Contact Info) Description 02/13/2017 9:13 AM EDT - 02/13/2017 11:59 PM EDT Hospital Encounter XRay at [address] [place] [address] Pineda Montague MD Primary osteoarthritis of left hip Discharge Disposition: Home Social [...] as needed for Wheezing. Use with spacer aspirin 81 mg Tablet, Delayed Release (E.C.) Take 1 tablet by mouth 2 times daily for 28 days. Take with food. 56 tablet 01/17/2017 02/14/2017 multivitamin Lrgb-Nv-JO-Min (THERAPEUTIC-M) 27-0.4 mg Tablet Take 1 tablet by mouth daily. 01/17/2017 06/19/2017 terazosin (HYTRIN) 1 mg capsule Take 1 [...] PELVIS AND HIP 2 VIEWS LEFT Routine 02/13/2017 9:43 AM EDT Primary osteoarthritis of left hip documented in this encounter Results * XR Pelvis w AP & Lat Hip Left (02/13/2017 9:43 AM EDT) Anatomical Region Laterality Modality Pelvis, Hip Left Digital Radiogra phy Narrative 02/13/2017 11:13 AM EDT EXAMINATION: XR PELVIS W AP AND LAT HIP LEFT CLINICAL HISTORY: History of hip replacement TECHNIQUE: AP view of the pelvis/both hips. AP and lateral view of the left hip. COMPARISON: January 15, 2017. FINDINGS: Stable alignment of the left total hip arthroplasty. No interval complications identified. Also unchanged findings of the right hip. Cystic change at the lateral aspect of the acetabular roof on the right is stable. Procedure Note Tiffany Guadarrama MD - 02/13/2017 EXAMINATION: XR PELVIS W AP AND LAT HIP LEFT CLINICAL HISTORY: History of hip replacement TECHNIQUE: AP view of the pelvis/both hips. AP and lateral view of theleft hip. COMPARISON: January 15, 2017. FINDINGS: Stable alignment of the left total hip arthroplasty. No intervalcomplications identified. Also unchanged findings of the right hip. Cystic change at the lateralaspect of the acetabular roof on the right is stable. Pineda Montague MD IMG DX ORDERABLES documented in this encounter Visit Diagnoses Diagnosis Primary osteoarthritis of left hip Primary localized osteoarthrosis, pelvic region and thigh documented in this encounter Care Teams Fruit Grader Relationship Specialty Start Date End Date Duke Ramos MD [address] [place] [address] PCP - General Family Medicine 08/23/16 06/28/18 documented as of this encounter
--- OUTSIDE RECORDS SUMMARY | 2024-07-19 16:48 | XMS_ITS | Encounter Summary ---
Author Organization [facility] [address] [place] [address] Care Team Providers Care Gamemaster Name Role Phone Amelia Goodwin APRN Primary Care Provider + Reason for Visit * Reason Comments Kidney Cancer Follow-up Encounter Details Date Type Department Care Team (Late st Contact Info) Description 06/29/2018 1:00 PM EDT [place] [id number] Toni Akbar MD [facility] [place] [place] [address] Renal cell carcinoma, unspecified laterality Social History [...] Sign Reading Time Taken Comments Blood Pressure 150/80 06/29/2018 1:02 PM EDT Pulse 88 06/29/2018 1:02 PM EDT Temperature 37 ??C (98.6 ??F) 06/29/2018 1:02 PM EDT Respiratory Rate - - Oxygen Saturation - - Inhaled Oxygen Concentration - - Weight - - Height - - Body Mass Index - - documented in this encounter Progress Notes * Toni Akbar MD - 06/29/2018 1:00 PM EDT UROLOGY FOLLOW UP ?? 68 yo male who underwent a laparoscopic radical left nephrectomy in May 2014 for a pT3a RCC, clearcell, Kimberli 2, Mg-. He has done well since last visit and specifically denies any hematuria or abdominal pain. He has had some movement related right abdominal discomfort recently. Past Medical History: Diagnosis Date ??? Cancer of kidney Left ??? HTN (hypertension) Past Surgical History: Procedure Laterality Date ??? APPENDECTOMY 1972 ??? CYST REMOVAL ??? PRG RADEX HIP UNILATERAL WITH PELVIS MINIMUM 4 VIEWS Left 01/15/2017 HIP INTRAOP RADIOLOGIC EXAMINATION, UNILATERAL, W PELVIS; 4+ VIEWS (WRVU 0.27) performed by Pineda Montague MD at [facility] MAIN OR ??? PRO COLONOSCOPY, DIAGNOSTIC N/A 09/26/2014 COLONOSCOPY, DIAGNOSTIC performed by Nina Almaguer MD at [facility] ENDOSCOPY ??? PRO LAP, RADICAL NEPHRECTOMY 06/07/2014 @LAPAROSCOPY, RADICAL NEPHRECTOMY performed by Jarocho Jenkins MD at [facility] MAIN OR ??? PRO REPAIR ING HERNIA, 5+Y/O, REDUCIBL Left 07/07/2015 REPAIR INGUINAL HERNIA, 5 YR OR OLDER, REDUCIBLE performed by Flash Rivas MD at [facility] MAIN OR ??? PRO TOTAL HIP ARTHROPLASTY Left 01/15/2017 @TOTAL HIP ARTHROPLASTY, ANTERIOR APPROACH (WRVU 20.72) performed by Pineda Montague MD at [facility] MAIN OR ??? PRO UPPER GI ENDOSCOPY, BIOPSY N/A 09/26/2014 EGD WITH BIOPSY performed by Nina Almaguer MD at [facility] ENDOSCOPY ??? TOTAL NEPHRECTOMY Left 06/07/14 Social History Social History ??? Marital status: Single Spouse name: N/A ??? Number of children: N/A ??? Years of education: N/A Social History Main Topics ??? Smoking status: Former Smoker Quit date: 05/28/1970 ??? Smokeless tobacco: Never Used ??? Alcohol use No ??? Drug use: No ??? Sexual activity: Not on file Other Topics Concern ??? Not on file Social History Narrative Family History Problem Relation Age of Onset ??? Cancer Sister ROS: negative for fever, chills, nausea, vomiting, diarrhea, constipation, hematuria, dysuria, CP, SOB Most Recent Vitals: 06/29/18 1302 BP: 150/80 Pulse: 88 Temp: 37 ??C (98.6 ??F) PainSc: 0 - No pain Alert, oriented, nad Soft, nontender abdomen No hernia noted Extremities well perfused ?? EXAMINATION: CT ABDOMEN AND PELVIS W CONTRAST ?? CLINICAL HISTORY: hx of renal cell cancer ?? TECHNIQUE: Helical CT of the abdomen and pelvis was performed following the intravenous administration of contrast. 109 cc of Omnipaque 350 was given. Oral contrast not utilized ?? COMPARISON: 06/19/2017, 09/11/2015 ?? FINDINGS: ?? Lower chest: Normal. ?? Liver: Normal size and attenuation without lesions. Bile ducts: Nondilated. Gallbladder: No calcified gallstones. Normal caliber wall. Pancreas: Normal attenuation without ductal dilatation. Spleen: Normal size. Subcentimeter low-density subcapsular lesion superiorly stable since 2014, favored to be a cyst or hemangioma. Adrenals: Normal. Kidneys: Normal right renal enhancement without focal lesions. No calculi or collecting system dilatation. Status post left nephrectomy. No nodularity in the resection bed. Urinary Bladder: Normal. Incidental urachal remnant stable in appearance since 2014. ?? Vasculature: No aneurysm. Lymph Nodes: No enlarged lymph nodes. Bowel: No dilated small or large bowel loops or bowel wall thickening. Peritoneum and mesentery: No ascites, free air, or loculated fluid collection. No mesenteric inflammation. Abdominal wall: Normal. ?? Reproductive organs: Prostate size grossly within normal limits; visualization is obscured due to streak artifact. Osseous structures: Left total hip arthroplasty is present, producing extensive streak artifact. Stable narrowing of the right hip joint with large acetabular subchondral cysts. Old healed left eighth and ninth rib fractures are noted. There are moderate degenerative changes throughout multiple disc levels with endplate sclerosis and Schmorl's nodes. No suspicious lytic or sclerotic osseous lesion. ?? IMPRESSION Status post left nephrectomy. No CT evidence of local recurrence or metastases. ?? A/P: pT3a RCC s/p left lap radical nephrectomy with no evidence of disease recurrence. Will schedule a follow up in 1 year. documented in this encounter Plan of Treatment Scheduled Procedures Name Priority Associated Diagnoses Date/Ti me EGD, UPPER GI ENDOSCOPY (WRV U 2.09) Esophageal dysphagia Encounter for colorectal cancer screening COLONOSCOPY, DIAGNOSTIC (WRV U 3.26) Esophageal dysphagia Encounter for colorectal cancer screening documented as of this encounter Visit Diagnoses Diagnosis Renal cell carcinoma, unspecified laterality documented in this encounter Care Teams Gamemaster Relationship Specialty Start Date End Date Amelia Goodwin APRN [address] [place] [address] PCP - General Family Medicine 06/29/18 05/21/20 documented as of this encounter
--- OUTSIDE RECORDS SUMMARY | 2024-07-19 16:48 | XMS_ITS | Encounter Summary ---
Author Organization [facility] Address [facility] [address] [place] [address] Care Team Providers Care Research Biologist Name Role Phone Amelia Goodwin APRN Primary Care Provider + Reason for Referral * Physical Therapy (Routine) - Specialty Diagnoses / Procedures Referred By Ugo t Referred To Contact Diagnoses Status post total replacement of left hip Luciana Thompson [place] [facility] [place] [address] Referral ID Status Reason Start Date Expiration Date V isits Requested Visits Authorized [id number] Evaluate and Treat Non PCP 01/14/2019 07/13/2019 12 12 Reason for Visit * Reason Comments Follow Up Surgery left ant JOHN DOS 12/22 03/08 Encounter Details Date Type Department Care Team (Late st Contact Info) Description 01/14/2019 1:00 PM EDT Office Visit Orthopaedics at [facility] [place] [address] Pineda Montague MD Status post total replacement of left hip [...] Sign Reading Time Taken Comments Blood Pressure 149/81 01/14/2019 12:33 PM EDT Pulse 84 01/14/2019 12:33 PM EDT Temperature - - Respiratory Rate - - Oxygen Saturation - - Inhaled Oxygen Concentration - - Weight 101.2 kg (223 lb) 01/14/2019 12:33 PM EDT verbal Height 172.7 cm (5' 8) 01/14/2019 12:33 PM EDT verbal Body Mass Index 33.91 01/14/2019 12:33 PM EDT documented in this encounter Progress Notes * Luciana Thompson PA - 01/14/2019 1:00 PM EDT Arthroplasty/Orthopaedic History: 1. Left JOHN - 01/15/17 - Dr. Montague HPI: Shree Ortez Jr. is a very pleasant 68 y.o. year-old male and is now 2 years s/p left JOHN. He is doing well. He has minimal pain in the hip. He continues to get some lateral hip and buttock pain on the left side, which occurs only after sitting in a chair for a long period of time. It has not worsened, and typically does not limit his activities. He denies any radiation of the pain or any numbness or tingling. He is overall happy with his hip replacement and continues to stay very active. He is not ambulating with any assistive devices. ROS: Denies: fever, chills, night sweats, nausea, or vomiting BP 149/81 (BP Location (NBP): Left arm, Patient Position: Sitting, BP Cuff Sizes: Large Adult (32-43 cm)) Pulse 84 Ht 172.7 cm (5' 8) Comment: verbal Wt 101.2 kg (223 lb) Comment: verbal BMI33.91 kg/m?? Physical Exam: Well-appearing male in no acute distress. Alert and Oriented x 3 and answers all questions appropriately. The incision is well healed, with no signs of infection. Hip Exam: Left + TTP over the greater trochanter. No TTP over the SI joint. No pain with hip ROM. Leg Length: Longer leg: equal Limb Length discrepancy: 0cm Motion: Flexion contracture: 0 Total degrees of Flexion: 105 Total degrees of Abduction: 40 Total degrees of Ext Rotation: 30 Total degrees of Internal Rotation: 10 Gait Abnormality: Normal Pulses Palpable: Left PT: Yes Left DP: Yes Motor/Sensory: Left Distal Motor: Normal Distal Sensory: Normal Hip Abductors: 5 Trendelenburg test: negative X-RAYS: Multiple radiographic views were obtained at my request and reviewed with the patient. X-rays show a well-placed prosthesis with no evidence of fracture, subsidence, loosening, or periprosthetic complication. Questionnaire Responses: [facility] Surgical Postop Visit 01/01/2018 PROMIS-10 General Health Fair PROMIS-10 Quality of Life Good PROMIS-10 Physical Health Fair PROMIS-10 Mental Health Good PROMIS-10 Social Activity Fair PROMIS-10 Everyday Activities Moderately PROMIS-10 Pain 3 PROMIS-10 Fatigue Moderate PROMIS-10 Social Roles Fair PROMIS-10 Anxious or Depressed Rarely PROMIS PHYSICAL HEALTH SCORE 39.8 PROMIS MENTAL HEALTH SCORE 43.5 HOOS JR Scores 64.66 Problems with surgical incision/wound after surgery No Gone to ER since knee surgery No Admitted to hospital since recent ortho surgery No Additional surgery on same body part No JOHN Grade 8 Pain in other HIP None Back pain at this moment Very mild Satisfaction with Treatment - Choose Same Treatment Again Probably yes Orthopeadics [facility] Response 01/01/2018 HOOS JR Scores 64.66 Spine [facility] Response 01/01/2018 HOOS JR Scores 64.66 ASSESSMENT/PLAN: Mr. Ortez is a 68 y.o. year old male 1 year status post left total hip replacement. He is very happy with his hip replacement. His symptoms may be related to some abductor insufficiency, as well as trochanteric bursitis. I have given him a referral to physical therapy to work on strengthening. He can continue to participate in activities as tolerated. He will follow up in 2 year with new X-rays, or sooner if his symptoms worsen or he develops any new issues. We discussed the appropriate precautions surrounding dental prophylaxis; according to the AAOS Appropriate Use Criteria we do not recommend antibiotic use prior to dental procedures for Shree. ?? We also discussed maintaining good foot care and giving prompt attention to any source of infectionthroughout the body including foot ulcers and urinary tract infections. documented in this encounter Plan of Treatment Scheduled Procedures Name Priority Associated Diagnoses Date/Ti me EGD, UPPER GI ENDOSCOPY (WRV U 2.09) Esophageal dysphagia Encounter for colorectal cancer screening COLONOSCOPY, DIAGNOSTIC (WRV U 3.26) Esophageal dysphagia Encounter for colorectal cancer screening Scheduled Referrals Name Type Priority Associated Diagnoses Orde r Schedule Referral to Physical Therapy Outpatient Referral Routine Status post total replacement of left hip Ordered: 01/14/2019 documented as of this encounter Visit Diagnoses Diagnosis Status post total replacement of left hip documented in this encounter Care Teams Research Biologist Relationship Specialty Start Date End Date Amelia Goodwin APRN [address] [place] [address] PCP - General Family Medicine 06/29/18 05/21/20 documented as of this encounter
--- OUTSIDE RECORDS SUMMARY | 2024-07-19 16:48 | XMS_ITS | Encounter Summary ---
[place] [address] Care Team Providers Care Print Production Associate Name Role Phone Amelia Goodwin APRN Primary Care Provider + Reason for Referral * Diagnostic Test (Routine) - Closed Specialty Diagnoses / Procedures Referred By Ugo maynard Referred To Contact Cardiology Diagnoses Heart murmur GARDNER (dyspnea on exertion) Procedures Echocardiogram Transthoracic(Leb) Amelia Goodwin APRN [address] [place] [address] [facility] [place] [address] Referral ID Status Reason Start Date Expiration Date V isits Requested Visits Authorized [id number] Closed Specialty Service Requested 06/18/2018 06/18/2019 1 1 Reason for Visit * Diagnostic Test (Routine) - Closed Specialty Diagnoses / Procedures Referred By Contlesli maynard Referred To Contact Cardiology Diagnoses Heart murmur GARDNER (dyspnea on exertion) Procedures Echocardiogram Transthoracic(Leb) Amelia Goodwin APRN [address] [place] [address] [facility] [place] [address] Referral ID Status Reason Start Date Expiration Date V isits Requested Visits Authorized [id number] Closed Specialty Service Requested 06/18/2018 06/18/2019 1 1 Encounter Details Date Type Department Care Team (Latest Contact Info) Description 06/29/2018 8:30 AM EDT - 06/29/2018 10:07 AM EDT Hospital Encounter [place] [address] EricaAmelia connellyVERONICA [address] [place] [address] Heart murmur; GARDNER (dyspnea on exertion) Discharge Disposition: Home Social History Tobacco Use [...] as needed for Wheezing. Use with spacer amitriptyline (ELAVIL) 10 mg Tablet 12/15/2017 01/14/2019 terazosin (HYTRIN) 1 mg capsule Take 1 [...] Procedure Name Priority Date/Time Associated Diagnosis Comments ECHO COMPLETE Routine 06/29/2018 9:15 AM EDT Heart murmur GARDNER (dyspnea on exertion) documented in this encounter Results * ECHO COMPLETE (06/29/2018 9:15 AM EDT) Anatomical Region Laterality Modality Other 06/29/2018 Narrative 06/29/2018 9:24 AM EDT Procedure: ?Transthoracic Echocardiogram Patient: ?BALJINDER Aparicio ?(Age): 1950(68y) Med Rec#: ? [id number] ?Sex: ?M ? Site Loc: ? DH ?Ht / Wt: ??177.8(cm)/95.3( Pt. Loc: ?Echo Lab ?BSA: ?2.13 Study Date: ?? 06/29/2018 ?Pt. Type: Outpatient Tape: ? Referring: [facility] Reading: Rory Conway ([id number]) Internet Consultant: Dakotah Pedroza RDCS Diagnosis: *Cardiac murmur, unspecified (R01.1) *Other forms of dyspnea (R06.09) BP: ? 154/101 SUMMARY: 1. The left ventricular chamber size is normal. ??Basal septal hypertrophy is observed (1.8cm). There is normal global left ventricular systolic function. ??The quantitative left ventricular ejection fraction by biplane Pritchard's method is 58%. There are no left ventricular segmental wall motion abnormalities. 2. Left sided filling pressure could not be assessed by Doppler. 3. Right ventricular chamber size, wall thickness, and systolic function are within normal limits. ??The estimated pulmonary artery systolic pressure is 20 mmHg. ??The estimated right atrial pressure is 3 mmHg. 4. The left atrium is mildly dilated. ??The right atrium appears normal. 5. There is no hemodynamically significant valve disease. 6. See remainder of report for additional findings. Findings ? : Study Quality: ? Adequate Left Ventricle: ? The left ventricular chamber size is normal. ?Basal septal hypertrophy is observed. (1.8cm) ?There is no evidence of LVOT obstruction. ?No ventricular septal defect is visualized. ?There is normal global left ventricular systolic function. ?The quantitative left ventricular ejection fraction by biplane Pritchard's method is 58%. ?There are no left ventricular segmental wall motion abnormalities. ?Assessment of diastolic function is indeterminate. ?Left sided filling pressure could not be assessed by Doppler. Left Atrium: ? The left atrium is mildly dilated. ?No atrial septal defect is visualized. Right Ventricle: ? Right ventricular chamber size, wall thickness, and systolic function are within normal limits. ?The estimated pulmonary artery systolic pressure is 20 mmHg. ?The estimated right atrial pressure is 3 mmHg. Right Atrium: ? The right atrium appears normal. Aortic Valve: ? The aortic valve is tricuspid. ?The aortic valve leaflets are mildly thickened. ?Systolic excursion of the aortic valve is normal. ?There is aortic annular calcification. ?There is no evidence of aortic valve stenosis. ?There is no evidence of aortic regurgitation. Mitral Valve: ? The mitral valve appears normal in structure and function. ?There is trace mitral regurgitation present. Tricuspid Valve: ? The tricuspid valve appears normal in structure and function. ?There is trace tricuspid regurgitation present. Pulmonic Valve: ? The pulmonic valve appears normal in structure and function. ?There is trace pulmonic regurgitation present. Pericardium: ? The pericardium appears normal and there is no evidence of a pericardial effusion. Aorta: ? The aortic root is normal in size. ?There is mild dilatation of the ascending aorta. (3.6cm) Pulmonary Artery: ? The main pulmonary artery appears normal. Venous: ? The inferior vena cava appears normal in size. ?There is a greater than 50% respiratory change in the inferior vena cava dimension. Misc: ? There is no hemodynamically significant valve disease. ?See remainder of report for additional findings. ?Two-dimensional echo, spectral Doppler and color Doppler performed. Chambers 2D ?Value ?Units (Range) ? IVSd (2D) ? 1.8 ?cm ? LVPWd (2D) ?1 ?cm ? IVS:LVPW ratio (2D) 1.9 ?ratio ? RWT (2D) ?0.6 ?ratio ? RWT PW (2D) ? 0.4 ?ratio ? LVIDd (2D) ?4.5 ?cm ? LVIDs (2D) ?2.9 ?cm ? LVIDd (2D) index ?2.1 ?cm/m2 ? LVIDs (2D) index ?1.4 ?cm/m2 ? LV FS (2D) ?35 ? % ? EF Teichholz (2D) ?? 64 ? % ? Ao root diameter (2D3.5 ?cm (2.1 - 3.6) ? Ascending Ao ?3.6 ?cm (2 - 3.5) ? Volumes/Mass ?Value ?Units (Range) ? LA Area 4 CH ?20.8 ? cm2 (<21) ? LA ESV BP (A/L) inde39.7 ? ml/m2 ? RA AREA 4CH ? 12.6 ? cm2 ? LV ESV SP 4CH (MOD) 43.2 ? ml ? LV ESV SP 2CH (MOD) 30 ? ml ? LV EDV BP ? 89.4 ? ml ? LV ESV BP ? 37.4 ? ml ? LV EDV BP index ? 42 ? ml/m2 ? LV ESV BP index ? 17.6 ? ml/m2 ? BP EF (MOD) ? 58 ? % ? LV mass (2D) ?242.8 ?g ? LV mass (2D) index ??114 ?g/m2 ? Diastolic/Systolic Function ?Value ?Units (Range) ? MV E-wave Vmax ?0.9 ?m/sec ? MV deceleration qcdo671.3 ?msec ? MV A-wave Vmax ?1 ?m/sec ? MV E:A ratio ?0.9 ?ratio ? LV septal e' Vmax ?? 0.1 ?m/sec ? LV lateral e' Vmax ??0.1 ?m/sec ? LV average e' Vmax ??0.1 ?m/sec ? LV E:e' septal ratio12.6 ? ratio ? LV E:e' lateral rati9.8 ?ratio ? LV average E:e' rati11 ? ratio ? Tricuspid Valve ?Value ?Units (Range) ? TR Vmax ? 2 ?m/sec ? TR peak gradient ?16.6 ? mmHg ? RAP ? 3 ?mmHg ? RVSP ?20 ? mmHg ? Wall Motion: Segment Name ?Rest ? Base-Anteroseptal ?? Normal ? Base-Anterior ? Normal ? Base-Anterolateral ??Normal ? Base-Posterolateral Normal ? Base-Inferior ? Normal ? Base-Inferoseptal ?? Normal ? Mid-Anteroseptal ?Normal ? Mid-Anterior ?Normal ? Mid-Anterolateral ?? Normal ? Mid-Posterolateral ??Normal ? Mid-Inferior ?Normal ? Mid-Inferoseptal ?Normal ? Dennison-Septal ? Normal ? Dennison-Anterior ? Normal ? Dennison-Lateral ?Normal ? Dennison-Inferior ? Normal ? Dennison-Tip ?Normal ? This report has been electronically signed by: Rory Conway MD ? 06/29/2018 09:24:54 Images reviewed and interpretation verified [facility] Procedure Note Rory Conway MD - 06/29/2018 Procedure: Transthoracic Echocardiogram Patient: BALJINDER Aparicio (Age): 1950(68y) Med Rec#: [id number] Sex: M [place] [facility] [place]t / Wt: 177.8(cm)/95.3( Pt. Loc: Echo Lab BSA: 2.13 Study Date: 06/29/2018 Pt. Type: Outpatient Tape: Referring: [facility] Reading: Rory Conway ([id number]) Internet Consultant: Dakotah Pedroza [facility] Diagnosis: *Cardiac murmur, unspecified (R01.1) *Other forms of dyspnea (R06.09) BP: 154/101 SUMMARY: 1. The left ventricular chamber size is normal. Basal septal hypertrophy is observed (1.8cm). There is normal global left ventricular systolic function. The quantitative left ventricular ejection fraction by biplane Pritchard's method is 58%. There are no left ventricular segmental wall motion abnormalities. 2. Left sided filling pressure could not be assessed by Doppler. 3. Right ventricular chamber size, wall thickness, and systolic function are within normal limits. The estimated pulmonary artery systolic pressure is 20 mmHg. The estimated right atrial pressure is 3 mmHg. 4. The left atrium is mildly dilated. The right atrium appears normal. 5. There is no hemodynamically significant valve disease. 6. See remainder of report for additional findings. Findings : Study Quality: Adequate Left Ventricle: The left ventricular chamber size is normal. Basal septal hypertrophy is observed. (1.8cm) There is no evidence of LVOT obstruction. No ventricular septal defect is visualized. There is normal global left ventricular systolic function. The quantitative left ventricular ejection fraction by biplane Pritchard's method is 58%. There are no left ventricular segmental wall motion abnormalities. Assessment of diastolic function is indeterminate. Left sided filling pressure could not be assessed by Doppler. Left Atrium: The left atrium is mildly dilated. No atrial septal defect is visualized. Right Ventricle: Right ventricular chamber size, wall thickness, and systolic function are within normal limits. The estimated pulmonary artery systolic pressure is 20 mmHg. The estimated right atrial pressure is 3 mmHg. Right Atrium: The right atrium appears normal. Aortic Valve: The aortic valve is tricuspid. The aortic valve leaflets are mildly thickened. Systolic excursion of the aortic valve is normal. There is aortic annular calcification. There is no evidence of aortic valve stenosis. There is no evidence of aortic regurgitation. Mitral Valve: The mitral valve appears normal in structure and function. There is trace mitral regurgitation present. Tricuspid Valve: The tricuspid valve appears normal in structure and function. There is trace tricuspid regurgitation present. Pulmonic Valve: The pulmonic valve appears normal in structure and function. There is trace pulmonic regurgitation present. Pericardium: The pericardium appears normal and there is no evidence of a pericardial effusion. Aorta: The aortic root is normal in size. There is mild dilatation of the ascending aorta. (3.6cm) Pulmonary Artery: The main pulmonary artery appears normal. Venous: The inferior vena cava appears normal in size. There is a greater than 50% respiratory change in the inferior vena cava dimension. Misc: There is no hemodynamically significant valve disease. See remainder of report for additional findings. Two-dimensional echo, spectral Doppler and color Doppler performed. Chambers 2D Value Units (Range) IVSd (2D) 1.8 cm LVPWd (2D) 1 cm IVS:LVPW ratio (2D) 1.9 ratio RWT (2D) 0.6 ratio RWT PW (2D) 0.4 ratio LVIDd (2D) 4.5 cm LVIDs (2D) 2.9 cm LVIDd (2D) index 2.1 cm/m2 LVIDs (2D) index 1.4 cm/m2 LV FS (2D) 35 % EF Teichholz (2D) 64 % Ao root diameter (2D3.5 cm (2.1 - 3.6) Ascending Ao 3.6 cm (2 - 3.5) Volumes/Mass Value Units (Range) LA Area 4 CH 20.8 cm2 (<21) LA ESV BP (A/L) inde39.7 ml/m2 RA AREA 4CH 12.6 cm2 LV ESV SP 4CH (MOD) 43.2 ml LV ESV SP 2CH (MOD) 30 ml LV EDV BP 89.4 ml LV ESV BP 37.4 ml LV EDV BP index 42 ml/m2 LV ESV BP index 17.6 ml/m2 BP EF (MOD) 58 % LV mass (2D) 242.8 g LV mass (2D) index 114 g/m2 Diastolic/Systolic Function Value Units (Range) MV E-wave Vmax 0.9 m/sec MV deceleration ldft457.3 msec MV A-wave Vmax 1 m/sec MV E:A ratio 0.9 ratio LV septal e' Vmax 0.1 m/sec LV lateral e' Vmax 0.1 m/sec LV average e' Vmax 0.1 m/sec LV E:e' septal ratio12.6 ratio LV E:e' lateral rati9.8 ratio LV average E:e' rati11 ratio Tricuspid Valve Value Units (Range) TR Vmax 2 m/sec TR peak gradient 16.6 mmHg RAP 3 mmHg RVSP 20 mmHg Wall Motion: Segment Name Rest Base-Anteroseptal Normal Base-Anterior Normal Base-Anterolateral Normal Base-Posterolateral Normal Base-Inferior Normal Base-Inferoseptal Normal Mid-Anteroseptal Normal Mid-Anterior Normal Mid-Anterolateral Normal Mid-Posterolateral Normal Mid-Inferior Normal Mid-Inferoseptal Normal Dennison-Septal Normal Dennison-Anterior Normal Dennison-Lateral Normal Dennison-Inferior Normal Dennison-Tip Normal This report has been electronically signed by: Rory Conway MD 06/29/2018 09:24:54 Images reviewed and interpretation verified [facility] Amelia Goodwin APRN ECHO ORDERABLES documented in this encounter Visit Diagnoses Diagnosis Heart murmur Undiagnosed cardiac murmurs GARDNER (dyspnea on exertion) Other dyspnea and respiratory abnormality documented in this encounter Care Teams Print Production Associate Relationship Specialty Start Date End Date Amelia Goodwin APRN [address] [place] [address] PCP - General Family Medicine 06/29/18 05/21/20 documented as of this encounter
--- OUTSIDE RECORDS SUMMARY | 2024-07-19 16:48 | XMS_ITS | Encounter Summary ---
Author Organization [facility] [address] Care Team Providers Care Technician Test Systems Name Role Phone Duke Ramos MD Primary Care Provider [phone] Encounter Details Date Type Department Care Team (Late st Contact Info) Description 06/18/2017 Orders [place] [address] Pineda Montague MD S/P total hip arthroplasty, left Social History Tobacco Use Types Packs/Day Years [...] of this encounter Results * XR Pelvis w AP & Lat Hip Left (06/19/2017 11:49 AM EDT) Anatomical Region Laterality Modality Pelvis, Hip Left Digital Radiogra phy Impressions 06/19/2017 1:17 PM EDT Left total hip arthroplasty. No acute change or complication. Narrative 06/19/2017 1:17 PM EDT EXAMINATION: XR PELVIS W AP AND LAT HIP LEFT CLINICAL HISTORY: check status of healing/hardware TECHNIQUE: AP pelvis with AP and lateral views of the left hip COMPARISON: 02/13/2017 FINDINGS: Noncemented total hip arthroplasty has been performed at the left hip. No change is identified. No complication is identified. 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 Note is made of a relatively prominent subchondral cyst at the acetabulum. Procedure Note Chaparro Mcnally MD - 06/19/2017 EXAMINATION: XR PELVIS W AP AND LAT HIP LEFT CLINICAL HISTORY: check status of healing/hardware TECHNIQUE: AP pelvis with AP and lateral views of the left hip COMPARISON: 02/13/2017 FINDINGS: Noncemented total hip arthroplasty has been performed at the left hip. Nochange is identified. No complication is identified. As seen on the previous study there is osteoarthritis at the contralateralhip. Note is made of a relatively prominent subchondral cyst at theacetabulum. IMPRESSION Left total hip arthroplasty. No acute change or complication. Pineda Montague MD IMG DX ORDERABLES documented in this encounter Visit Diagnoses Diagnosis S/P total hip arthroplasty, left S/P total hip arthroplasty, left documented in this encounter Care Teams Technician Test Systems Relationship Specialty Start Date End Date Duke Ramos MD [address] [place] [address] PCP - General Family Medicine 08/23/16 06/28/18 documented as of this encounter
--- OUTSIDE RECORDS SUMMARY | 2024-07-19 16:48 | XMS_ITS | Encounter Summary ---
Author Organization [facility] [address] [place] [address] Care Team Providers Care Clinical Appeals Reviewer Name Role Phone Duke Ramos MD Primary Care Provider [phone] Reason for Visit * Reason Onset Date Comments Appointment 10/29/2017 Encounter Details Date Type Department Care Team (Late st Contact Info) Description 10/29/2017 Telephone Orthopaedics at [facility] [place] [address] Cierra Laureano RMA Appointment Social History Tobacco Use Types Packs/Day Years [...] encounter Miscellaneous Notes * Telephone Encounter - Krystina Dupont - 10/29/2017 1:02 PM EST Patient is scheduled * Telephone Encounter - Cierra Laureano RMA - 10/29/2017 10:08 AM EST Shree called to say he just missed a call from [facility]. He was not sure who called but is thinking that it must be getting close to his one year anniversary. SP L JOHN Dos 01/15/17 Dr Montague I let him know that I would get a message to our typing secretary's to see if they can give him a call to [facility] that appt. documented in this encounter Plan of Treatment Scheduled Procedures Name Priority Associated Diagnoses Date/Ti me EGD, UPPER GI ENDOSCOPY (WRV U 2.09) Esophageal dysphagia Encounter for colorectal cancer screening COLONOSCOPY, DIAGNOSTIC (WRV U 3.26) Esophageal dysphagia Encounter for colorectal cancer screening documented as of this encounter Visit Diagnoses Not on filedocumented in this encounter Care Teams Clinical Appeals Reviewer Relationship Specialty Start Date End Date Duke Ramos MD [address] [place] [address] PCP - General Family Medicine 08/23/16 06/28/18 documented as of this encounter
--- OUTSIDE RECORDS SUMMARY | 2024-07-19 16:48 | XMS_ITS | Encounter Summary ---
Author Organization [facility] Address [facility] [place] [address] Care Team Providers Care Manager Chemistry Name Role Phone Duke Ramos MD Primary Care Provider [phone] Reason for Visit * Reason Comments Follow Up Surgery Left Ant JOHN DOS 12/22 03/08 Encounter Details Date Type Department Care Team (Late st Contact Info) Description 04/10/2017 11:10 AM EDT Office [place] [id number] Pineda Montague MD Status post total replacement [...] Sign Reading Time Taken Comments Blood Pressure 157/84 04/10/2017 10:57 AM EDT Pulse 71 04/10/2017 10:57 AM EDT Temperature - - Respiratory Rate - - Oxygen Saturation - - Inhaled Oxygen Concentration - - Weight 93.9 kg (207 lb) 04/10/2017 10:57 AM EDT Height 172.7 cm (5' 8) 04/10/2017 10:57 AM EDT Body Mass Index 31.47 04/10/2017 10:57 AM EDT documented in this encounter Progress Notes * Luciana Thompson PA - 04/10/2017 11:10 AM EDT Arthroplasty/Orthopaedic History: 1. Left JOHN - 01/15/17 - Dr. Montague HPI: Shree Ortez Jr. is a very pleasant 66 y.o. year-old male and is now 3 months s/p left totalhip replacement. He continues to do very well. He has no pain and is not taking any pain medicationor APAP. He is going to outpatient PT and has made good progress there. He just had his visits extended and will be going twice a week for another month. He occasionally ambulates with a walking stick, but does not feel that he really needs it. ROS: Denies: fever, chills, night sweats, nausea, or vomiting BP 157/84 Pulse 71 Ht 172.7 cm (5' 8) Wt 93.9 kg (207 lb) BMI 31.47 kg/m2 Physical Exam: Well-appearing male in no acute distress. Alert and Oriented x 3 and answers all questions appropriately. The incision is well healed, with no signs of infection. Hip Exam: Left Leg Length: Longer leg: equal Limb Length discrepancy: 0cm Motion: Flexion contracture: 0 Total degrees of Flexion: 105 Total degrees of Abduction: 40 Total degrees of Ext Rotation: 30 Total degrees of Internal Rotation: 10 Gait Abnormality: Normal Pulses Palpable: Left PT: Yes Left DP: Yes Motor/Sensory: Left Distal Motor: Normal Distal Sensory: Normal Hip Abductors: 5 Trendelenburg test: negative Questionnaire Responses: [facility] Surgical Postop Visit 04/10/2017 PROMIS-10 General Health Good PROMIS-10 Quality of Life Fair PROMIS-10 Physical Health Fair PROMIS-10 Mental Health Fair PROMIS-10 Social Activity Fair PROMIS-10 Everyday Activities Moderately PROMIS-10 Pain 3 PROMIS-10 Fatigue Moderate PROMIS-10 Social Roles Fair PROMIS-10 Anxious or Depressed Sometimes PROMIS PHYSICAL HEALTH SCORE 39.8 PROMIS MENTAL HEALTH SCORE 36.3 HOOS JR Scores - Problems with surgical incision/wound after surgery No Gone to ER since knee surgery - Admitted to hospital since recent ortho surgery No Additional surgery on same body part No JOHN Grade - Pain in other HIP - Back pain at this moment - Satisfaction with Treatment Satisfied Choose Same Treatment Again Probably yes [facility] Response 02/13/2017 HOOS JR Scores 61.82 Spine [facility] Response 02/13/2017 HOOS JR Scores 61.82 ASSESSMENT/PLAN: Mr. Ortez is a 66 y.o. year old male status post left total hip replacement. He is very happy with his hip replacement. He will finish out PT and continue to work on his balance andgait. He can progress his activities as tolerated. We reviewed dental prophylaxis and monitoring for any signs or sources of infection throughout the body. He will follow up in 9 months with new X-rays. documented in this encounter Plan of Treatment Scheduled Procedures Name Priority Associated Diagnoses Date/Ti me EGD, UPPER GI ENDOSCOPY (WRV U 2.09) Esophageal dysphagia Encounter for colorectal cancer screening COLONOSCOPY, DIAGNOSTIC (WRV U 3.26) Esophageal dysphagia Encounter for colorectal cancer screening documented as of this encounter Visit Diagnoses Diagnosis Status post total replacement of left hip documented in this encounter Care Teams Manager Chemistry Relationship Specialty Start Date End Date Duke Ramos MD [address] [place] [address] PCP - General Family Medicine 08/23/16 06/28/18 documented as of this encounter
--- OUTSIDE RECORDS SUMMARY | 2024-07-19 16:48 | XMS_ITS | Encounter Summary ---
Author Organization [facility] Address [facility] [address] [place] [address] Care Team Providers Care It Trainee Name Role Phone Duke Ramos MD Primary Care Provider [phone] Encounter Details Date Type Department Care Team (Late st Contact Info) Description 02/27/2017 Orders Only Urology at [facility] [place] [address] Toni Akbar MD [facility] [place] [address] [place] [address] Social History Tobacco Use Types Packs/Day Years [...] on filedocumented in this encounter Care Teams It Trainee Relationship Specialty Start Date End Date Duke Ramos MD [address] [place] [address] PCP - General Family Medicine 08/23/16 06/28/18 documented as of this encounter
--- OUTSIDE RECORDS SUMMARY | 2024-07-19 16:48 | XMS_ITS | Encounter Summary ---
Author Organization [facility] Address [facility] [place] [address] Care Team Providers Care Senior Software Project Manager Name Role Phone Norma Murdock APRN Primary Care Provider [phone] Reason for Visit * Reason Comments Inguinal Hernia * Consultation (Routine) - Closed Specialty Diagnoses / Procedures Referred By Ugo t Referred To Contact General Surgery Diagnoses Unilateral inguinal hernia, without obstruction or gangrene, not specified as recurrent Norma Murdock APRN [address] [place] [address] [facility] Surgery [address] [address] Referral ID Status Reason Start Date Expiration Date V isits Requested Visits Authorized [id number] Closed Consult, Test & Treat Connection Center PCP Updated and/or Approved 08/07/2021 08/07/2022 12 12 Encounter Details Date Type Department Care Team (Late st Contact Info) Description 10/08/2021 2:30 PM EST Office [place] [address] Flash Livingston MD [facility] [place] [address] Discomfort of left groin Social History Tobacco [...] Sign Reading Time Taken Comments Blood Pressure 133/85 10/08/2021 2:12 PM EST Pulse 74 10/08/2021 2:12 PM EST Temperature - - Respiratory Rate 16 10/08/2021 2:12 PM EST Oxygen Saturation 98% 10/08/2021 2:12 PM EST Inhaled Oxygen Concentration - - Weight 94.5 kg (208 lb 6.4 oz) 10/08/2021 2:12 P M EST Height 172.7 cm (5' 7.99) 10/08/2021 2:12 PM ES T Body Mass Index 31.69 10/08/2021 2:12 PM EST documented in this encounter Progress Notes * Khoi Johnson MD - 10/08/2021 2:30 PM EST General Surgery Clinic Note Patient Name: hSree Ortez Jr. : 1950 HPI: Jesus Ortez is a 71M w/ PMH of nephrectomy in 2013 and left inguinal hernia repair w/ mesh in 2014 who presents today for evaluation of inguinal hernia. The patient reports progressive discomfort andoccasionally pain in the left groin. These symptoms are most apparent w/ activity such as when lifting heavy objects and when trying to move his bowels. The discomfort is more of a dull ache that will sometimes feel like a heavy sensation in his testicle. This occurs most days of the week and is bothersome for his quality of life. He sometimes feels a lump in his left groin. He denies episodes ofacute pain, n/v, and long periods of time w/o a bowel movement. He reports having a groin ultrasound about a year ago at [facility], however the results were not conclusive and report is not available. Of note, he had a CT scan on 03/06/21 which was significant for a RIGHT inguinal hernia. He reports 1-2 instances over the last year with discomfort in the right groin, however symptoms on the left occur much more frequently and are more bothersome. Objective: Last value Range last 24hrs Temperature Temp: -- Heart Rate Heart Rate: 74 Heart Rate: [74] Blood Pressure BP: 133/85 BP: (133)/(85) Respiratory Rate Resp: 16 Resp: [16] SpO2 SpO2: 98 % SpO2: [98 %] Physical Exam: Gen: NAD, awake/alert CV: regular rate Pulm: nonlabored breathing on room air Abd: soft, NT, ND. No masses or organomegaly. Inguinal: left groin non tender with no palpable hernia with cough/valsalva in standing position. Right groin non tender with small palpable protrusion w/ cough/valsalva in standing position. Ext: warm, well perfused A/P: Shree Ortez Jr. is a 71 y.o. male who presents for evaluation of left inguinal hernia. The patient has groin discomfort/pain that began last year and has progressed over time and is exacerbated w/ activity. He had a CT scan 02/2021 which was significant for a RIGHT hernia but no appreciable hernia on the left. On exam today there is no palpable inguinal hernia on the left and a small protrusion on the right which could be a cord lipoma vs small inguinal hernia. At this point the history is suggestive of a left inguinal hernia however this is inconsistent with the physical exam/imaging.We will plan to do an inguinal ultrasound to further investigate if a hernia is present on the leftside. If a hernia is identified on ultrasound, further operative intervention can be discussed. Khoi Johnson MD 10/08/2021 Patient seen and examined by me. I agree with above note as written. We will obtain US and follow-up on the results together. Flash Livingston MD #[id number] documented in this encounter Plan of Treatment Scheduled Procedures Name Priority Associated Diagnoses Date/Ti fl EGD, UPPER GI ENDOSCOPY (WRV U 2.09) Esophageal dysphagia Encounter for colorectal cancer screening COLONOSCOPY, DIAGNOSTIC (WRV U 3.26) Esophageal dysphagia Encounter for colorectal cancer screening documented as of this encounter Results * US Extremity Non [...] who have questions, please contact the health rental boats caretaker that requested your imaging first. ? Clari Smith, Staff Physician Electronically Signed Final Report ?? 11/05/2021 01:51 pm Narrative 11/05/2021 1:51 PM EST Ultrasound Inguinal Report ?(Signed Final 11/05/2021 01:51 pm) LEFT PATIENT INFO: ID #: ? [id number] ?: [birth year] (71 yrs)(M) Name: ? SHREE ORTEZ ? Visit Date: 11/05/2021 01:12 pm PERFORMED BY: Performed By: ? Marcelino Marcus RDMS Attending: ?Luis SANTANA, Clari Varghese Referred By: ?FLASH LIVINGSTON Location: ? [facility] SERVICE(S) PROVIDED: UEXTLMTL - Extremity Limited Non Vascular - Left ?[id number] - [id number] INDICATIONS: s/p left inguinal hernia 2015 with [...] 01:51 pm) LEFT PATIENT INFO: ID #: [id number] : [birth year] (71 yrs)(M) Name: SHREE ORTEZ Visit Date: 11/05/2021 01:12 pm PERFORMED BY: Performed By: Marcelino Marcus RDMS Attending: Clari Smith MD Referred By: FLASH LIVINGSTON Location: [facility] SERVICE(S) PROVIDED: UEXTLMTL - Extremity Limited Non Vascular - Left [id number] - [id number] INDICATIONS: s/p left inguinal hernia 2015 with [...] who have questions, please contact the health rental boats caretaker that requested your imaging first. Clari Smith, Staff Physician Electronically Signed Final Report 11/05/2021 01:51 pm Flash Livingston MD IMG US GEN ORDERABLE S documented in this encounter Visit Diagnoses Diagnosis Discomfort of left groin Discomfort of left groin documented in this encounter Care Teams Senior Software Project Manager Relationship Specialty Start Date End Date Norma Murdock APRN [address] [place] [address] PCP - General Family Medicine 05/22/20 07/10/23 documented as of this encounter
--- OUTSIDE RECORDS SUMMARY | 2024-07-19 16:48 | XMS_ITS | Encounter Summary ---
Author Organization [facility] Address [facility] [place] [address] Care Team Providers Care Morgue Attendant Name Role Phone Amelia Goodwin APRN Primary Care Provider + Encounter Details Date Type Department Care Team (Latest Contact Info) Description 06/29/2018 11:19 AM EDT - 06/29/2018 11:59 PM EDT Hospital Encounter XRay at [address] [place] [address] Toni Akbar MD [facility] [place] [address] History of renal cell cancer Discharge Disposition: Home Social History Tobacco Use [...] Comments XR CHEST PA AND LATERAL Routine 06/29/2018 11:37 AM EDT History of renal cell cancer documented in this encounter Results * XR [...] Diagnoses Diagnosis History of renal cell cancer documented in this encounter Care Teams Morgue Attendant Relationship Specialty Start Date End Date Amelia Goodwin APRN [address] [place] [address] PCP - General Family Medicine 06/29/18 05/21/20 documented as of this encounter
--- OUTSIDE RECORDS SUMMARY | 2024-07-19 16:48 | XMS_ITS | Encounter Summary ---
Author Organization [facility] [place] [address] Care Team Providers Care Machine Tool Designer Name Role Phone Duke Ramos MD Primary Care Provider [phone] Reason for Visit * Reason Comments Follow Up Surgery Left anterior JOHN Encounter Details Date Type Department Care Team (Late st Contact Info) Description 01/01/2018 11:10 AM EDT [place] [phone] Pineda Montague MD Status post total replacement [...] Sign Reading Time Taken Comments Blood Pressure 141/82 01/01/2018 10:52 AM EDT Pulse 67 01/01/2018 10:52 AM EDT Temperature - - Respiratory Rate - - Oxygen Saturation - - Inhaled Oxygen Concentration - - Weight 95.3 kg (210 lb) 01/01/2018 10:52 AM EDT Height 177.8 cm (5' 10) 01/01/2018 10:52 AM EDT Body Mass Index 30.13 01/01/2018 10:52 AM EDT documented in this encounter Progress Notes * Luciana Thompson PA - 01/01/2018 11:10 AM EDT Arthroplasty/Orthopaedic History: 1. Left JOHN - 01/15/17 - Dr. Montague HPI: Shree Ortez Jr. is a very pleasant 67 y.o. year-old male and is now 1 year s/p left JOHN. Heis doing well. He has minimal pain in the hip. He does get some lateral and buttock pain on the left side, which occurs only after sitting in a chair for a long period of time. Once he stands up and moves or walks around the pain resolves. He denies any radiation of the pain or any numbness or tingling. He is overall happy with his hip replacement and has been much more active this past years since having surgery. He is not ambulating with any assistive devices. ROS: Denies: fever, chills, night sweats, nausea, or vomiting BP 141/82 (BP Location (NBP): Right arm, Patient Position: Sitting, BP Cuff Sizes: Large Adult (32-43 cm)) Pulse 67 Ht 177.8 cm (5' 10) Wt 95.3 kg (210 lb) BMI 30.13 kg/m2 Physical Exam: Well-appearing male in no acute distress. Alert and Oriented x 3 and answers all questions appropriately. The incision is well healed, with no signs of infection. Hip Exam: Left No TTP over the greater trochanter. No TTP [...] subsidence, loosening, or periprosthetic complication. Questionnaire Responses: [facility] Surgical Postop Visit 01/01/2018 PROMIS-10 General Health [...] Choose Same Treatment Again Probably yes [facility] Response 01/01/2018 HOOS JR Scores 64.66 [facility] Response 01/01/2018 HOOS JR Scores 64.66 ASSESSMENT/PLAN: Mr. Ortez is a 67 y.o. year old male 1 year status post left total hip replacement. He is very happy with his hip replacement. His symptoms may be related to some abductor insufficiency. He can continue to participate in activities as tolerated. We reviewed dental prophylaxis and monitoring for any signs or sources of infection throughout the body; he does not need to take any prophylactic antibiotics prior to dental procedures. He will follow up in 1 year with new X-rays, or sooner if his symptoms worsen or he develops any new issues. documented in this encounter Plan of Treatment Scheduled Procedures Name Priority Associated Diagnoses Date/Ti me EGD, UPPER GI ENDOSCOPY (WRV U 2.09) Esophageal dysphagia Encounter for colorectal cancer screening COLONOSCOPY, DIAGNOSTIC (WRV U 3.26) Esophageal dysphagia Encounter for colorectal cancer screening documented as of this encounter Visit Diagnoses Diagnosis Status post total replacement of left hip documented in this encounter Care Teams Machine Tool Designer Relationship Specialty Start Date End Date Duke Ramos MD [address] [address] PCP - General Family Medicine 08/23/16 06/28/18 documented as of this encounter
--- OUTSIDE RECORDS SUMMARY | 2024-07-19 16:48 | XMS_ITS | Encounter Summary ---
Author Organization [facility] Address [facility] [place] [address] Care Team Providers Care Stable Cleaner Name Role Phone Duke Ramos MD Primary Care Provider [phone] Reason for Visit * Reason Comments Follow Up Surgery Left ANT JOHN DoS: Encounter Details Date Type Department Care Team (Late st Contact Info) Description 02/13/2017 11:00 AM EDT Office [place] [phone] Pineda Montague MD Status post total replacement [...] Sign Reading Time Taken Comments Blood Pressure 144/103 02/13/2017 10:55 AM EDT Pulse 77 02/13/2017 10:55 AM EDT Temperature 36.6 ??C (97.9 ??F) 02/13/2017 10:55 AM E DT Respiratory Rate - - Oxygen Saturation - - Inhaled Oxygen Concentration - - Weight 95.3 kg (210 lb) 02/13/2017 10:55 AM EDT verbal Height 172.7 cm (5' 8) 02/13/2017 10:55 AM EDT verbal Body Mass Index 31.93 02/13/2017 10:55 AM EDT documented in this encounter Progress Notes * Luciana Thompson PA - 02/13/2017 11:00 AM EDT Arthroplasty/Orthopaedic History: 1. Left JOHN - 01/15/17 - Dr. Montague HPI: Shree Ortez Jr. is a very pleasant 66 y.o. year-old male and is now 4 weeks post left totalhip replacement. He has been doing very well. His pain is minimal and well controlled on occasionalAPAP. He is not taking any narcotics. He was discharged from rehab about a week ago and has done well at home. He has had no problems with the incision. He is working on getting his outpatient PT setup, and now all he has to do is return their phone call to pick an appointment time. He did work with PT at rehab. He is ambulating with a walker for long distances. He uses a cane at home or for shorter distances. ROS: Denies: fever, chills, night sweats, nausea, or vomiting BP (!) 144/103 (BP Location (NBP): Right arm, Patient Position: Sitting, BP Cuff Sizes: Adult (25-34 cm)) Pulse 77 Temp 36.6 ??C (97.9 ??F) Ht 172.7 cm (5' 8) Comment: verbal Wt 95.3 kg (210lb) Comment: verbal BMI 31.93 kg/m2 Physical Exam: Well-appearing male in no acute distress. Alert and Oriented x 3 and answers all questions appropriately. The incision is well healed, with no signs of infection. Hip Exam: Left Leg Length: Longer leg: equal Limb Length discrepancy: 0cm Motion: Flexion contracture: 0 Total degrees of Flexion: 100 Total degrees of Abduction: 40 Total degrees [...] subsidence, loosening, or periprosthetic complication. Questionnaire Responses: [facility] Surgical Postop Visit 02/13/2017 PROMIS-10 General Health Fair PROMIS-10 Quality of Life Fair PROMIS-10 Physical Health Fair PROMIS-10 Mental Health Fair PROMIS-10 Social Activity Fair PROMIS-10 Everyday Activities Moderately PROMIS-10 Pain 4 PROMIS-10 Fatigue Mild PROMIS-10 Social Roles Fair PROMIS-10 Anxious or Depressed Rarely PROMIS PHYSICAL HEALTH SCORE 39.8 PROMIS MENTAL HEALTH SCORE 38.8 HOOS JR Scores 61.82 Problems with surgical incision/wound after surgery No Gone to ER since knee surgery No Admitted to hospital since recent ortho surgery No Additional surgery on same body part No JOHN Grade 4 Pain in other HIP None Back pain at this moment Very mild Satisfaction with Treatment Satisfied Choose Same Treatment Again Probably yes [facility] Response 02/13/2017 HOOS JR Scores 61.82 Sp[facility] Response 02/13/2017 HOOS JR Scores 61.82 ASSESSMENT/PLAN: Mr. Ortez is a 66 y.o. year old male status post left total hip replacement. He has been doing very well. I reassured him that he is making good progress. He will set up his outpatient PT appointment and continue working on his ROM, strength, and gait. He can progress all activities as tolerated. We reviewed dental prophylaxis and monitoring for any signs or sources of infection throughout the body. He will follow up in another 8 weeks with no X-rays. documented in this encounter Plan of Treatment Scheduled Procedures Name Priority Associated Diagnoses Date/Ti me EGD, UPPER GI ENDOSCOPY (WRV U 2.09) Esophageal dysphagia Encounter for colorectal cancer screening COLONOSCOPY, DIAGNOSTIC (WRV U 3.26) Esophageal dysphagia Encounter for colorectal cancer screening documented as of this encounter Visit Diagnoses Diagnosis Status post total replacement of left hip documented in this encounter Care Teams Stable Cleaner Relationship Specialty Start Date End Date Duke Ramos MD [address] [place] [address] PCP - General Family Medicine 08/23/16 06/28/18 documented as of this encounter
--- OUTSIDE RECORDS SUMMARY | 2024-07-19 16:48 | XMS_ITS | Encounter Summary ---
Author [facility] Address [facility] [place] [address] Care Team Providers Care Staff Nurse Icu Resource Team Name Role Phone Amelia Goodwin APRN Primary Care Provider + Encounter Details Date Type Department Care Team (Latest Contact Info) Description 01/14/2019 11:26 AM EDT - 01/14/2019 11:59 PM EDT Hospital Encounter XRay at [address] [place] [address] Pineda Montague MD History of total left hip replacement Discharge Disposition: Home Social History Tobacco Use [...] PELVIS AND HIP 2 VIEWS LEFT Routine 01/14/2019 11:39 AM EDT History of total left hip replacement documented in this encounter Results * XR Pelvis w AP & Lat Hip Left (01/14/2019 11:39 AM EDT) Anatomical Region Laterality Modality Pelvis, Hip Left Digital Radiogra phy Impressions 01/14/2019 3:12 PM EDT Left total hip arthroplasty. No change or complication. Contralateral hip osteoarthritis. Thank you for letting us participate in the care of this patient. For questions regarding this report, please contact the number below. ? Electronically signed by: Chaparro Mcnally [facility] ([phone]), at 01/14/2019 3:12 PM Narrative 01/14/2019 3:12 PM EDT EXAMINATION: XR PELVIS W AP AND LAT HIP LEFT CLINICAL HISTORY: Left JOHN TECHNIQUE: AP pelvis with AP and lateral views of the left hip COMPARISON: 01/01/2018 FINDINGS: Left total hip arthroplasty is in place. No change or complication is identified. At the contralateral hip there is joint space narrowing. Additional degenerative arthropathy is present at the sacroiliac joints and the symphysis pubis. Procedure Note Chaparro Mcnally MD - 01/14/2019 EXAMINATION: XR PELVIS W AP AND LAT HIP LEFT CLINICAL HISTORY: Left JOHN TECHNIQUE: AP pelvis with AP and lateral views of the left hip COMPARISON: 01/01/2018 FINDINGS: Left total hip arthroplasty is in place. No change or complication is identified. At the contralateral hip there is joint space narrowing. Additional degenerative arthropathy is present at the sacroiliac jointsand the symphysis pubis. IMPRESSION Left total hip arthroplasty. No change or complication. Contralateral hip osteoarthritis. Thank you for letting us participate in the care of this patient. Forquestions regarding this report, please contact the number below. Pineda Montague MD IMG DX ORDERABLES documented in this encounter Visit Diagnoses Diagnosis History of total left hip replacement documented in this encounter Care Teams Staff Nurse Icu Resource Team Relationship Specialty Start Date End Date Amelia Goodwin APRN [address] [place] [address] PCP - General Family Medicine 06/29/18 05/21/20 documented as of this encounter
--- OUTSIDE RECORDS SUMMARY | 2024-07-19 16:48 | XMS_ITS | Encounter Summary ---
Author Organization [facility] [place] [place] [place] [address] Care Team Providers Care Charge Authorizer Name Role Phone Norma Murdock APRN Primary Care Provider [phone] Encounter Details Date Type Department Care Team (Late st Contact Info) Description 06/20/2020 [place] [phone] Toni Akbar MD [facility] [place] [address] Social History Tobacco Use Types Packs/Day Years [...] encounter Miscellaneous Notes * Telephone Encounter - Navdeep Mix - 06/20/2020 3:18 PM EDT Pt calls to schedule his 1-year recheck with Dr. Akbar for renal cell CA. I don't see any imaging requested so will check with Dr. Akbar and then contact the pt back toschedule the appropriate tests and visit. (PCP sent in a new referral for this visit.) documented in this encounter Plan of Treatment Scheduled Procedures Name Priority Associated Diagnoses Date/Ti me EGD, UPPER GI ENDOSCOPY (WRV U 2.09) Esophageal dysphagia Encounter for colorectal cancer screening COLONOSCOPY, DIAGNOSTIC (WRV U 3.26) Esophageal dysphagia Encounter for colorectal cancer screening documented as of this encounter Visit Diagnoses Not on filedocumented in this encounter Care Teams Charge Authorizer Relationship Specialty Start Date End Date Norma Murdock APRN [address] [place] [address] PCP - General Family Medicine 05/22/20 07/10/23 documented as of this encounter
--- OUTSIDE RECORDS SUMMARY | 2024-07-19 16:48 | XMS_ITS | Encounter Summary ---
Author Organization [facility] [place] [address] Care Team Providers Care Paediatrician Name Role Phone Norma Murdock APRN Primary Care Provider [phone] Encounter Details Date Type Department Care Team (Late st Contact Info) Description 03/06/2021 Ancillary Procedure Radiology Library at [facility] [place] [address] Norma Murdock APRN [address] [place] [address] Social History Tobacco Use Types [...] Associated Diagnosis Comments FILM LIBRARY STORAGE ONLY CT ABDOMEN AND PELVIS Routine 03/06/2021 12:00 AM EDT documented in this encounter Results * Film Library- Storage Only CT Abdomen & Pelvis (03/06/2021 12:00 AM EDT) Narrative [facility] - 08/21/2021 12:05 PM EST This exam is auto-finalizing. It's purpose is for storage only. Norma Young SCRAP BREAKER [place] FILM LIBRARY ORD ERABLES [facility] [place], [place] documented in this encounter Visit Diagnoses Not on filedocumented in this encounter Care Teams Paediatrician Relationship Specialty Start Date End Date Norma Murdock APRN [address] [place] [address] PCP - General Family Medicine 05/22/20 07/10/23 documented as of this encounter
--- OUTSIDE RECORDS SUMMARY | 2024-07-19 16:48 | XMS_ITS | Encounter Summary ---
Author Organization [facility] Address [facility] [address] [place] [address] Care Team Providers Care Telegraph Inspector Name Role Phone Duke Ramos MD Primary Care Provider [phone] Reason for Visit * Reason Comments Follow-up Encounter Details Date Type Department Care Team (Late st Contact Info) Description 06/19/2017 2:00 PM EDT Office Visit Urology at [facility] [place] [address] Toni Akbar MD [facility] [place] [address] Renal cell carcinoma, unspecified laterality Social History [...] Sign Reading Time Taken Comments Blood Pressure 157/105 06/19/2017 2:26 PM EDT Pt checks BP at home daily Pulse 81 06/19/2017 2:26 PM EDT Temperature 36.7 ??C (98.1 ??F) 06/19/2017 2 :26 PM EDT Respiratory Rate - - Oxygen Saturation 97% 06/19/2017 2:2 6 PM EDT Inhaled Oxygen Concentration - - Weight - - Height - - Body Mass Index - - documented in this encounter Progress Notes * Toni Akbar MD - 06/19/2017 2:00 PM EDT UROLOGY FOLLOW UP 67 yo male who underwent a laparoscopic radical left nephrectomy in May 2014 for a pT3a RCC, clearcell, Kimberli 2, Mg-. He has done well since last visit and specifically denies any hematuria or abdominal pain. Past Medical History: Diagnosis Date ??? Cancer of kidney Left ??? HTN (hypertension) Past Surgical History: Procedure Laterality Date ??? APPENDECTOMY 1972 ??? CYST REMOVAL ??? PRG RADEX HIP UNILATERAL WITH PELVIS MINIMUM 4 VIEWS Left 01/15/2017 HIP INTRAOP RADIOLOGIC EXAMINATION, UNILATERAL, W PELVIS; 4+ VIEWS (WRVU 0.27) performed by Pineda Montague MD at [facility] MAIN OR ??? PRO COLONOSCOPY, DIAGNOSTIC N/A 09/26/2014 COLONOSCOPY, DIAGNOSTIC performed by Nina Almaguer MD at [facility] ENDOSCOPY ??? PRO LAP, RADICAL NEPHRECTOMY 06/07/2014 @LAPAROSCOPY, RADICAL NEPHRECTOMY performed by Jarocho Jenkins MD at [facility] MAIN OR ??? PRO REPAIR ING HERNIA, 5+Y/O, REDUCIBL Left 07/07/2015 REPAIR INGUINAL HERNIA, 5 YR OR OLDER, REDUCIBLE performed by Flash Rivas MD at [facility] MAIN OR ??? PRO TOTAL HIP ARTHROPLASTY Left 01/15/2017 @TOTAL HIP ARTHROPLASTY, ANTERIOR APPROACH (WRVU 20.72) performed by Pineda Montague MD at [facility] MAIN OR ??? PRO UPPER GI ENDOSCOPY, BIOPSY N/A 09/26/2014 EGD WITH BIOPSY performed by Nina Almaguer MD at [facility] ENDOSCOPY ??? TOTAL NEPHRECTOMY Left 06/07/14 Social History Substance Use Topics ??? Smoking status: Former Smoker Quit date: 05/28/1970 ??? Smokeless tobacco: Never Used ??? Alcohol use No Family History Problem Relation Age of Onset ??? Cancer Sister ROS: negative for fever, chills, nausea, vomiting, diarrhea, constipation, hematuria, dysuria, CP, SOB Most Recent Vitals: 06/19/17 1426 BP: (!) 157/105 Pulse: 81 Temp: 36.7 ??C (98.1 ??F) SpO2: 97% Alert, oriented, nad Soft, nontender abdomen No hernia noted Extremities well perfused Results for SHREE ORTEZ JR. ( ) as of 06/19/2017 14:17 Ref. Range 10/22/2016 12:14 12/23/2016 11:00 01/16/2017 03:42 01/17/2017 04:37 06/19/2017 11:21 Creatinine Latest Ref Range: 0.80 - 1.50 mg/dL 1.72 (H) 1.52 (H) 1.66 (H) 1.74 (H) 1.49 CXR 06/19/17 IMPRESSION No acute pathology that would raise concern for metastatic disease (within the limitations of chest radiograph). CT abdomen 06/19/17 No evidence of disease recurrence. Healthy appearing right kidney. A/P: pT3a RCC s/p left lap radical [...] laterality documented in this encounter Care Teams Telegraph Inspector Relationship Specialty Start Date End Date Duke Ramos MD [address] [place] [address] PCP - General Family Medicine 08/23/16 06/28/18 documented as of this encounter
--- OUTSIDE RECORDS SUMMARY | 2024-07-19 16:48 | XMS_ITS | Encounter Summary ---
[place] [address] Care Team Providers Care [employer] Principal Name Role Phone Duke Ramos MD Primary Care Provider [phone] Reason for Referral * Diagnostic Test (Routine) - Closed Specialty Diagnoses / Procedures Referred By Ugo t Referred To Contact Radiology Diagnoses Renal cancer, unspecified laterality Procedures CT Abdomen & Pelvis w Contrast Toni Akbar MD [facility] [place] [place] [address] [facility] [place] [address] Referral ID Status Reason Start Date Expiration Date V isits Requested Visits Authorized [id number] Closed Specialty Service Requested 06/18/2017 06/18/2018 1 1 Encounter Details Date Type Department Care Team (Late st Contact Info) Description 06/18/2017 [place] [address] Toni Akbar MD [facility] [place] [place] [address] Renal cancer, unspecified laterality Social History Tobacco Use Types [...] of this encounter Results * CT Abdomen & [...] within the abdomen andpelvis. Toni Akbar MD IMG CT ORDERABLES documented in this encounter Visit Diagnoses Diagnosis Renal cancer, unspecified laterality Renal cancer, unspecified laterality documented in this encounter Care Teams Middle School Principal Relationship Specialty Start Date End Date Duke Ramos MD [address] [place] [address] PCP - General Family Medicine 08/23/16 06/28/18 documented as of this encounter
--- OUTSIDE RECORDS SUMMARY | 2024-07-19 16:48 | XMS_ITS | Encounter Summary ---
Author Organization [facility] Address [facility] [address] [place] [address] Care Team Providers Care Steel Pickler Name Role Phone Duke Ramos MD Primary Care Provider [phone] Encounter Details Date Type Department Care Team (Latest Contact Info) Description 01/01/2018 9:43 AM EDT - 01/01/2018 11:59 PM EDT Hospital Encounter XRay at [address] [place] [address] Pineda Montague MD History of total left [...] PELVIS AND HIP 2 VIEWS LEFT Routine 01/01/2018 10:01 AM EDT History of total left hip replacement documented in this encounter Results * XR Pelvis w AP & Lat Hip Left (01/01/2018 10:01 AM EDT) Anatomical Region Laterality Modality Pelvis, Hip Left Digital Radiogra phy Impressions 01/01/2018 11:55 AM EDT Unchanged and uncomplicated left total hip arthroplasty. I have personally reviewed the image(s) and the residents interpretation and agree with the findings, YUDLEKA DODSON at 01/01/2018 11:55 AM Narrative 01/01/2018 11:55 AM EDT EXAMINATION: XR PELVIS W AP AND LAT HIP LEFT CLINICAL HISTORY: Status post left total hip arthroplasty TECHNIQUE: AP pelvis and frontal and lateral radiograph of the left hip. COMPARISON: AP pelvis and frontal and lateral radiographs of the left hip 06/19/2017, AP pelvis 01/15/2017. FINDINGS: Unchanged appearance of left total hip arthroplasty. No periprosthetic fractures, lucencies or subsidence. Radiographically minimal-appearing osteoarthropathy of the right hip joint. Unchanged appearance of subchondral cysts at the right acetabulum. Procedure Note Yudelka Dodson MD - 01/01/2018 EXAMINATION: XR PELVIS W AP AND LAT HIP LEFT CLINICAL HISTORY: Status post left total hip arthroplasty TECHNIQUE: AP pelvis and frontal and lateral radiograph of the left hip. COMPARISON: AP pelvis and frontal and lateral radiographs of the left hip 06/19/2017,AP pelvis 01/15/2017. FINDINGS: Unchanged appearance of left total hip arthroplasty. No periprosthetic fractures, lucencies or subsidence. Radiographically minimal-appearing osteoarthropathy of the right hip joint. Unchanged appearance ofsubchondral cysts at the right acetabulum. IMPRESSION Unchanged and uncomplicated left total hip arthroplasty. I have personally reviewed the image(s) and the residents interpretationand agree with the findings, YUDELKA DODSON at 01/01/2018 11:55 AM Pineda Montague MD IMG DX ORDERABLES documented in this encounter Visit Diagnoses Diagnosis History of total left hip replacement documented in this encounter Care Teams Steel Pickler Relationship Specialty Start Date End Date Duke Ramos MD [address] [place] [address] PCP - General Family Medicine 08/23/16 06/28/18 documented as of this encounter
--- OUTSIDE RECORDS SUMMARY | 2024-07-19 16:48 | XMS_ITS | Encounter Summary ---
Author Organization [facility] Address [facility] [place] [address] Care Team Providers Care Psychosocial Rehabilitation Counselor Name Role Phone Amelia Goodwin APRN Primary Care Provider + Reason for Visit * Diagnostic Test (Routine) - Closed Specialty Diagnoses / Procedures Referred By Ugo maynard Referred To Contact Radiology Diagnoses History of renal cell cancer Procedures CT Abdomen & Pelvis w Contrast CT Abdomen & Pelvis wo Contrast Toni Akbar MD [facility] [place] [place] [address] [facility] [place] [address] Referral ID Status Reason Start Date Expiration Date V isits Requested Visits Authorized [id number] Closed Specialty Service Requested 02/26/2018 02/26/2019 1 1 Encounter Details Date Type Department Care Team (Latest Contact Info) Description 06/29/2018 10:08 AM EDT - 06/29/2018 11:18 AM EDT Hospital [place] [address] Toni Akbar MD [facility] [place] [address] History of renal cell cancer Discharge Disposition: [...] CT ABDOMEN AND PELVIS W CONTRAST Routine 06/29/2018 11:12 AM EDT History of renal cell cancer documented in this encounter Results * CT Abdomen & Pelvis w Contrast (06/29/2018 11:12 AM EDT) Anatomical Region Laterality Modality Abdomen, Pelvis Computed Tomogra phy Impressions 06/29/2018 11:25 AM EDT Status post left nephrectomy. No CT evidence of local recurrence or metastases. Narrative 06/29/2018 11:25 AM EDT EXAMINATION: ??CT ABDOMEN AND PELVIS W CONTRAST CLINICAL HISTORY: ??hx of renal cell cancer TECHNIQUE: Helical CT of the abdomen and pelvis was performed following the intravenous administration of contrast. 109 cc of Omnipaque 350 was given. ??Oral contrast not utilized COMPARISON: 06/19/2017, 09/11/2015 FINDINGS: Lower chest: Normal. Liver: Normal size [...] urachal remnant stable in appearance since 2014. Vasculature: No aneurysm. Lymph Nodes: No enlarged lymph nodes. Bowel: No dilated small or large bowel loops or bowel wall thickening. Peritoneum and mesentery: No ascites, free air, or loculated fluid collection. No mesenteric inflammation. Abdominal wall: Normal. Reproductive organs: Prostate size grossly within normal [...] No suspicious lytic or sclerotic osseous lesion. Procedure Note Nay Ricketts MD - 06/29/2018 EXAMINATION: CT ABDOMEN AND PELVIS W CONTRAST CLINICAL HISTORY: hx of renal cell cancer TECHNIQUE: Helical CT of the abdomen and pelvis was performed followingthe intravenous administration of contrast. 109 cc of Omnipaque 350 was given.Oral contrast not utilized COMPARISON: 06/19/2017, 09/11/2015 FINDINGS: Lower chest: Normal. Liver: Normal size and attenuation without lesions. Bile ducts: Nondilated. Gallbladder: No calcified gallstones. Normal caliber wall. Pancreas: Normal attenuation without ductal dilatation. Spleen: Normal size. Subcentimeter low-density subcapsular lesionsuperiorly stable since 2014, favored to be a cyst or hemangioma. Adrenals: Normal. Kidneys: Normal right renal enhancement without focal lesions. No calculior collecting system dilatation. Status post left nephrectomy. No nodularityin the resection bed. Urinary Bladder: Normal. Incidental urachal remnant stable in appearancesince 2014. Vasculature: No aneurysm. Lymph Nodes: No enlarged lymph nodes. Bowel: No dilated small or large bowel loops or bowel wall thickening. Peritoneum and mesentery: No ascites, free air, or loculated fluidcollection. No mesenteric inflammation. Abdominal wall: Normal. Reproductive organs: Prostate size grossly within normal limits;visualization is obscured due to streak artifact. Osseous structures: Left total hip arthroplasty is present, producingextensive streak artifact. Stable narrowing of the right hip joint with largeacetabular subchondral cysts. Old healed left eighth and ninth rib fractures arenoted. There are moderate degenerative changes throughout multiple disc levelswith endplate sclerosis and Schmorl's nodes. No suspicious lytic or scleroticosseous lesion. IMPRESSION Status post left nephrectomy. No CT evidence of local recurrence ormetastases. Toni Akbar MD IMG CT ORDERABLES documented in this encounter Visit Diagnoses Diagnosis History of renal cell cancer documented in this encounter Administered Medications Inactive Administered Medications - up to 3 most recent administrations Medication Order MAR Action Action Date Dose Rate Site iohexol (OMNIPAQUE) 350 mg/mL solution 0-200 mL 0-200 mL, Intravenous, ONCE PRN, 1 dose, Starting on Fri06/29/18 at 1051, Until Fri06/29/18 at 1113, Per Protocol, Warning Vesicant/Irritant Medication , Radiology Contrast, Routine Given 06/29/2018 11:13 AM EDT 109 mLs documented in this encounter Care Teams Psychosocial Rehabilitation Counselor Relationship Specialty Start Date End Date Amelia Goodwin APRN [address] [place] [address] PCP - General Family Medicine 06/29/18 05/21/20 documented as of this encounter
--- OUTSIDE RECORDS SUMMARY | 2024-07-19 16:48 | XMS_ITS | Encounter Summary ---
Author Organization [facility] Address [facility] [place] [address] Care Team Providers Care Special Education Secretary Name Role Phone Duke Ramos MD Primary Care Provider [phone] Reason for Visit * Reason Comments Left Hip Pain left JOHN DOS 01/15/17 Encounter Details Date Type Department Care Team (Late st Contact Info) Description 06/19/2017 3:30 PM EDT Office [place] [id number] Pineda Montague MD S/P total hip arthroplasty, [...] Sign Reading Time Taken Comments Blood Pressure 163/97 06/19/2017 3:48 PM EDT Pulse 70 06/19/2017 3:48 PM EDT Temperature - - Respiratory Rate - - Oxygen Saturation - - Inhaled Oxygen Concentration - - Weight 95.3 kg (210 lb) 06/19/2017 3:48 PM EDT v erbal Height 177.8 cm (5' 10) 06/19/2017 3:48 PM EDT verbal Body Mass Index 30.13 06/19/2017 3:48 PM EDT documented in this encounter Progress Notes * Fly Kaiser PA - 06/19/2017 3:30 PM EDT history of present illness: 67-year-old male returns 8 months from his hip replacement. He has madegood progress. He has minimal discomfort. At times after prolonged sitting, he has difficulty with his first few steps. He feels the leg will give way on him. This been going on for several months hedenies specific injury but notes that he has taken some falls. Overall he feels he is doing much more activity than he was prior to surgery, even for the last couple years prior to surgery. Aside from the hip itself is stable Physical examination: Ambulatory without assistive devices left leg is slightly shorter than the right. Passive range of motion is well tolerated without significant pain or apprehension he has no tenderness of the trochanter or the sacroiliac joint. 5 out of 5 strength with resisted hip range of motion. No pain or shocking with axial loading of the femur. Calves are soft and nontender without edema peripheral pulses are intact and equal X-rays: X-rays reviewed today showing no evidence for fracture fracture or subsidence. Offset is within normal limits. No change compared to postoperative films Assessment: Status post left hip replacement Plan: We discussed his complaints. I do not get the sense that there is a problem with his implantsor his hip. I think slightly likely continued conditioning and strengthening will help him. Do not see a role for further surgical intervention at this time. Potentially injection to the sacroiliac ashvin int would be beneficial. We will see him again at the one-year anniversary of his surgery documented in this encounter Plan of Treatment Scheduled Procedures Name Priority Associated Diagnoses Date/Ti me EGD, UPPER GI ENDOSCOPY (WRV U 2.09) Esophageal dysphagia Encounter for colorectal cancer screening COLONOSCOPY, DIAGNOSTIC (WRV U 3.26) Esophageal dysphagia Encounter for colorectal cancer screening documented as of this encounter Visit Diagnoses Diagnosis S/P total hip arthroplasty, left documented in this encounter Care Teams Special Education Secretary Relationship Specialty Start Date End Date Duke Ramos MD [address] [place] [address] PCP - General Family Medicine 08/23/16 06/28/18 documented as of this encounter
--- OUTSIDE RECORDS SUMMARY | 2024-07-19 16:48 | XMS_ITS | Encounter Summary ---
Author Organization [facility] [place] [address] Care Team Providers Care Resaw Tailer Name Role Phone Norma Murdock APRN Primary Care Provider [phone] Encounter Details Date Type Department Care Team (Latest Contact Info) Description 08/09/2020 12:45 PM EST Laboratory Appointment Lab 3L [facility] [place] [id number] Renal cell carcinoma, unspecified laterality Social History [...] Scheduled Procedures Name Priority Associated Diagnoses Date/Ti ne EGD, UPPER GI ENDOSCOPY (WRV U 2.09) [...] EST) Glucose 103 65 - 199 mg/dL [facility] Comment:Diabetes: >=200 mg/d L plus symptoms Blood Urea Nitrogen 20 10 - 20 mg/dL [facility] Creatinine 1.20 0.80 - 1.50 mg/dL [facility] Sodium 140 135 - 145 mmol/L [facility] Potassium 4.3 3.5 - 5.0 mmol/L [facility] Comment: Please note: ??Patients with WBC >100,000 may have falsely elevated Potassium levels. ??For accurate Potassium quantification in these patients send serum separator tube (gold top) for subsequent determinations. ??Contact the Clinical Chemistry Laboratory if there are any questions. Chloride 108(H) 98 - 107 mmol/L [facility] Carbon Dioxide 25 22 - 31 mmol/L [facility] Anion Gap 7 5 - 15 mmol/L [facility] Calcium 9.1 8.5 - 10.5 mg/dL [facility] Est Glomerular Filtration Rate 61 >=60 mL/min/1. 73 m?? [facility] Comment: The eGFR was calculated using the CKD-EPI equation. As with all creatinine based estimates of kidney function, eGFR values calculated with the CKD-EPI equation are not accurate in patients with acute kidney failure, extremes of body mass or the acutely ill. [email or web address] eGFR 71 >=60 mL/min/1. 73 m?? [facility] Comment: The eGFR was calculated using the CKD-EPI equation. As with all creatinine based estimates of kidney function, eGFR values calculated with the CKD-EPI equation are not accurate in patients with acute kidney failure, extremes of body mass or the acutely ill. [email or web address] Blood specimen (specimen) 08/09/2020 1:03 PM EST 08/09/2020 1:11 PM EST Narrative Resulting Agency Comment Spec In Lab Toni Akbar MD CHEMISTRY ORDERABL ES [facility] [place] [address] documented in this encounter Visit Diagnoses Diagnosis Renal cell carcinoma, unspecified laterality documented in this encounter Care Teams Resaw Tailer Relationship Specialty Start Date End Date Norma Murdock APRN [address] [place] [address] PCP - General Family Medicine 05/22/20 07/10/23 documented as of this encounter
--- OUTSIDE RECORDS SUMMARY | 2024-07-19 16:48 | XMS_ITS | Encounter Summary ---
Author Organization [facility] Address [facility] [address] [address] Care Team Providers Care International Trade Manager Name Role Phone Duek Ramos MD Primary Care Provider [phone] Encounter Details Date Type Department Care Team (Latest Contact Info) Description 06/19/2017 11:24 AM EDT Hospital Encounter XRay at [address] [place] [address] History of kidney cancer Discharge Disposition: Home Social History Tobacco [...] Comments XR CHEST PA AND LATERAL Routine 06/19/2017 11:43 AM EDT History of kidney cancer documented in this encounter Results * XR Chest PA & Lateral (Generic) (06/19/2017 11:43 AM EDT) Anatomical Region Laterality Modality Chest N/A Digital Radiogra phy Impressions 06/19/2017 12:36 PM EDT No acute pathology that would raise concern for metastatic disease (within the limitations of chest radiograph). Narrative 06/19/2017 12:36 PM EDT EXAMINATION: XR CHEST PA AND LATERAL (GENERIC) CLINICAL HISTORY: surveillance rcc TECHNIQUE: PA and lateral chest. COMPARISON: October 22, 2016. FINDINGS: Lungs are stable. No pleural effusion. Normal size of the heart and width of the mediastinum. Degenerative changes of the spine. Procedure Note Tiffany Guadarrama MD - 06/19/2017 EXAMINATION: XR CHEST PA AND LATERAL (GENERIC) CLINICAL HISTORY: surveillance rcc TECHNIQUE: PA and lateral chest. COMPARISON: October 22, 2016. FINDINGS: Lungs are stable. No pleural effusion. Normal size of the heart and widthof the mediastinum. Degenerative changes of the spine. IMPRESSION No acute pathology that would raise concern for metastatic disease (withinthe limitations of chest radiograph). Jarocho Jenkins MD IMG DX ORDERABLES documented in this encounter Visit Diagnoses Diagnosis History of kidney cancer Personal history of malignant neoplasm of kidney documented in this encounter Care Teams International Trade Manager Relationship Specialty Start Date End Date Duke Ramos MD [address] [place] [address] PCP - General Family Medicine 08/23/16 06/28/18 documented as of this encounter
--- OUTSIDE RECORDS SUMMARY | 2024-07-19 16:48 | XMS_ITS | Encounter Summary ---
Author Organization [place] [address] Care Team Providers Care Resp Ther Name Role Phone Duke Ramos MD Primary Care Provider [phone] Reason for Referral * Physical Therapy (Routine) - Closed Specialty Diagnoses / Procedures Referred By Ugo maynard Referred To Contact Physical Therapy Diagnoses Status post total replacement of left hip Pineda Montague MD [facility] [place] [address] Referral ID Status Reason Start Date Expiration Date V isits Requested Visits Authorized [id number] Closed Evaluate and Treat 02/21/2017 08/20/2017 20 20 Reason for Visit * Reason Onset Date Comments Physical Therapy 02/19/2017 Encounter Details Date Type Department Care Team (Late st Contact Info) Description 02/19/2017 [place] [address] Pineda Montague MD Physical Therapy Social History Tobacco Use Types Packs/Day Years [...] encounter Miscellaneous Notes * Telephone Encounter - Lata Daley - 02/21/2017 8:35 AM EDT Referral placed and faxed along with op note to fax number provided. * Telephone Encounter - Lata Daley - 02/19/2017 4:14 PM EDT Chana from [facility] calling for a PT referral and op note for the patient to begin PT. Requesting referral and note be faxed to [phone]. Call back to [phone] with questions. documented in this encounter Plan of Treatment [...] post total replacement of left hip Ordered: 02/21/2017 documented as of this encounter Visit Diagnoses Diagnosis Status post total replacement of left hip documented in this encounter Care Teams Resp Ther Relationship Specialty Start Date End Date Duke Ramos MD [address] [place] [address] PCP - General Family Medicine 08/23/16 06/28/18 documented as of this encounter
--- OUTSIDE RECORDS SUMMARY | 2024-07-19 16:48 | XMS_ITS | Encounter Summary ---
Author Organization Formerly [facility] [place] [address] Care Team Providers Care Senior Maintenance Machinist Name Role Phone Amelia Goodwin APRN Primary Care Provider + Encounter Details Date Type Department Care Team (Late st Contact Info) Description 06/29/2018 Orders Only Urology at [facility] [place] [id number] Toni Akbar MD [facility] [place] [address] Renal cell carcinoma, unspecified laterality Social History [...] Scheduled Procedures Name Priority Associated Diagnoses Date/Ti ms EGD, UPPER GI ENDOSCOPY (WRV U 2.09) Esophageal dysphagia Encounter for colorectal cancer screening COLONOSCOPY, DIAGNOSTIC (WRV U 3.26) Esophageal dysphagia Encounter for colorectal cancer screening documented as of this encounter Results * (ABNORMAL) Basic Metabolic Panel (non-fasting) (06/29/2018 11:44 AM EDT) Glucose 92 65 - 199 mg/dL [facility] Comment:Diabetes: >=200 mg/d L plus symptoms Blood Urea Nitrogen 19 10 - 20 mg/dL [facility] Creatinine 1.51(H) 0.80 - 1.50 mg/dL [facility] Sodium 140 135 - 145 mmol/L [facility] Potassium 4.8 3.5 - 5.0 mmol/L [facility] Comment: Please note: ??Patients with WBC >100,000 may have falsely elevated Potassium levels. ??For accurate Potassium quantification in these patients send serum separator tube (gold top) for subsequent determinations. ??Contact the Clinical Chemistry Laboratory if there are any questions. Chloride 104 98 - 107 mmol/L [facility] Carbon Dioxide 26 22 - 31 mmol/L [facility] Anion Gap 10 5 - 15 mmol/L [facility] Calcium 9.2 8.5 - 10.5 mg/dL [facility] Est Glomerular Filtration Rate 47(L) >=60 mL/min/1. 73 m?? [facility] Comment: The eGFR was calculated using the CKD-EPI equation. As with all creatinine based estimates of kidney function, eGFR values calculated with the CKD-EPI equation are not accurate in patients with acute kidney failure, extremes of body mass or the acutely ill. [email or web address] eGFR 54(L) >=60 mL/min/1. 73 m?? [facility] Comment: The eGFR was calculated using the CKD-EPI equation. As with all creatinine based estimates of kidney function, eGFR values calculated with the CKD-EPI equation are not accurate in patients with acute kidney failure, extremes of body mass or the acutely ill. [email or web address] Blood specimen (specimen) 06/29/2018 11:44 AM EDT 06/29/2018 11:55 AM EDT Narrative Resulting Agency Comment Spec In Lab Toni Akbar MD CHEMISTRY ORDERABL ES [facility] [place] [address] documented in this encounter Visit Diagnoses Diagnosis Renal cell carcinoma, unspecified laterality documented in this encounter Care Teams Senior Maintenance Machinist Relationship Specialty Start Date End Date Amelia Goodwin APRN [address] [place] [address] PCP - General Family Medicine 06/29/18 05/21/20 documented as of this encounter
--- OUTSIDE RECORDS SUMMARY | 2024-07-19 16:48 | XMS_ITS | Encounter Summary ---
Author Organization Formerly [facility] [place] [address] Care Team Providers Care Lmft Name Role Phone Duke Ramos MD Primary Care Provider [phone] Encounter Details Date Type Department Care Team (Latest Contact Info) Description 06/19/2017 11:45 AM EDT Laboratory Appointment Lab [address] [place] [phone] History of kidney cancer Social History Tobacco Use Types Packs/Day [...] Scheduled Procedures Name Priority Associated Diagnoses Date/Ti vt EGD, UPPER GI ENDOSCOPY (WRV U 2.09) Esophageal dysphagia Encounter for colorectal cancer screening COLONOSCOPY, DIAGNOSTIC (WRV U 3.26) Esophageal dysphagia Encounter for colorectal cancer screening documented as of this encounter Procedures Procedure Name Priority Date/Time Associated Diagnosis Comments COMPREHENSIVE METABOLIC PANEL STAT 06/19/2017 11:21 AM EDT History of kidney cancer documented in this encounter Results * (ABNORMAL) Comprehensive metabolic panel (non-fasting) (06/19/2017 11:21 AM EDT) Glucose 96 65 - 199 mg/dL [facility] Comment:Diabetes: >=200 mg/d L plus symptoms Blood Urea Nitrogen 24(H) 10 - 20 mg/dL [facility] Creatinine 1.49 0.80 - 1.50 mg/dL [facility] Comment: Please note that the pediatric reference intervals supplied above were not validated at [facility]. Results from pediatric patients should be interpreted in conjunction to the patient's age, height and muscle mass. Sodium 143 135 - 145 mmol/L [facility] Potassium 4.7 3.5 - 5.0 mmol/L [facility] Comment: Please note: ??Patients with WBC >100,000 may have falsely elevated Potassium levels. ??For accurate Potassium quantification in these patients send serum separator tube (gold top) for subsequent determinations. ??Contact the Clinical Chemistry Laboratory if there are any questions. Chloride 105 98 - 107 mmol/L [facility] Carbon Dioxide 26 22 - 31 mmol/L [facility] Anion Gap 12 5 - 15 mmol/L [facility] Calcium 9.3 8.5 - 10.5 mg/dL [facility] Protein, Total 7.4 6.1 - 8.0 gm/dL [facility] Albumin 4.1 3.2 - 5.2 gm/dL [facility] Aspartate Aminotransferase 23 0 - 39 unit/L [facility] Alanine Aminotransferase 30 0 - 55 unit/L [facility] Alkaline Phosphatase 130(H) 40 - 120 unit/L [facility] Bilirubin, Total 0.4 0.2 - 1.3 mg/dL [facility] Est Glomerular Filtration Rate 47(L) >=60 [facility] Comment: This estimated GFR (eGFR) value was calculated using the MDRD equation which has been validated on patients between the ages of 18 and 70. The MDRD should not be used to assess kidney function in patients < 18 years of age or in patients with extremes of body mass, or in patients with acute kidney failure. This value should be multiplied by 1.2 for patients. For further information please copy and paste the following links into your internet browser. http://StartX/DHnkdep http://StartX/DHMCnkf Blood specimen (specimen) 06/19/2017 11:21 AM EDT 06/19/2017 11:26 AM EDT Narrative Resulting Agency Comment Spec In Lab Jarocho Jenkins MD CHEMISTRY ORDERABLES [facility] [place] [address] documented in this encounter Visit Diagnoses Diagnosis History of kidney cancer Personal history of malignant neoplasm of kidney documented in this encounter Care Teams Lmft Relationship Specialty Start Date End Date Duke Ramos MD [address] [place] [address] PCP - General Family Medicine 08/23/16 06/28/18 documented as of this encounter
--- OUTSIDE RECORDS SUMMARY | 2024-07-19 16:48 | XMS_ITS | Encounter Summary ---
Author Organization [facility] Address [facility] [address] [place] [place] [address] Care Team Providers Care Hydroelectric Plant Mechanical Engineer Name Role Phone Duke Ramos MD Primary Care Provider Encounter Details Date Type Department Care Team (Late st Contact Info) Description 03/06/2018 Orders Only Urology at [facility] [place] [address] Toni Akbar MD [facility] [place] [address] Social History Tobacco Use Types Packs/Day Years [...] on filedocumented in this encounter Care Teams Hydroelectric Plant Mechanical Engineer Relationship Specialty Start Date End Date Duke Ramos MD [address] [place] [address] PCP - General Family Medicine 08/23/16 06/28/18 documented as of this encounter
--- OUTSIDE RECORDS SUMMARY | 2024-07-19 16:48 | XMS_ITS | Encounter Summary ---
Author Organization [facility] Address [facility] [place] [address] Care Team Providers Care Child And Adolescent Psychologist Name Role Phone Duke Ramos MD Primary Care Provider [phone] Encounter Details Date Type Department Care Team (Latest Contact Info) Description 06/19/2017 11:25 AM EDT - 06/19/2017 12:33 PM EDT Hospital Encounter XRay at [address] [place] [address] Pineda Montague MD S/P total hip arthroplasty, left Discharge Disposition: Home Social History Tobacco Use [...] PELVIS AND HIP 2 VIEWS LEFT Routine 06/19/2017 11:49 AM EDT S/P total hip arthroplasty, left documented in this encounter Results * XR [...] left documented in this encounter Care Teams Child And Adolescent Psychologist Relationship Specialty Start Date End Date Duke Ramos MD [address] [place] [address] PCP - General Family Medicine 08/23/16 06/28/18 documented as of this encounter
--- OUTSIDE RECORDS SUMMARY | 2024-07-19 16:48 | XMS_ITS | Encounter Summary ---
Author Organization [facility] Address [facility] [place] [place] [place] [address] Care Team Providers Care Core Stacker Name Role Phone Duke Ramos MD Primary Care Provider [phone] Encounter Details Date Type Department Care Team (Late st Contact Info) Description 02/13/2017 11:30 AM EDT Notes Only Orthopaedics at [facility] [place] [address] Social History Tobacco Use Types Packs/Day Years [...] as of this encounter Progress Notes * Oly Alonso - 02/13/2017 11:30 AM EDT I met with Shree to hear about his patient experience for his JOHN. As far as he is concerned everything went well. He stated that Dr. Montague had done all right and has a good sense of humor. The RN's treated him good. The surgery went well. His advice to someone thinking about getting a joint replacement is Do it! Because it is a lot better once it is done. It dont hurt near as much as it did then. Cause I dealt with it for a long timebefore I decide to come down. I encouraged him to call with any further questions or concerns. documented in this encounter Plan of Treatment Scheduled Procedures Name Priority Associated Diagnoses Date/Ti me EGD, UPPER GI ENDOSCOPY (WRV U 2.09) Esophageal dysphagia Encounter for colorectal cancer screening COLONOSCOPY, DIAGNOSTIC (WRV U 3.26) Esophageal dysphagia Encounter for colorectal cancer screening documented as of this encounter Visit Diagnoses Not on filedocumented in this encounter Care Teams Core Stacker Relationship Specialty Start Date End Date Duke Ramos MD [address] [place] [address] PCP - General Family Medicine 08/23/16 06/28/18 documented as of this encounter
--- OUTSIDE RECORDS SUMMARY | 2024-07-19 16:48 | XMS_ITS | Encounter Summary ---
Author Organization [facility] Address [facility] [place] [address] Care Team Providers Care Welfare Service Aide Name Role Phone Norma Murdock APRN Primary Care Provider [phone] Reason for Visit * Reason Comments Follow-up Kidney Cancer * Consultation (Routine) - Specialty Diagnoses / Procedures Referred By Ugo t Referred To Contact Urology Diagnoses Malignant neoplasm of left kidney, except renal pelvis Norma Murdock APRN [address] [place] [address] [facility] [place] [address] Referral ID Status Reason Start Date Expiration Date V isits Requested Visits Authorized [id number] Consult, Test [facility] PCP Updated and/or Approved 05/19/2020 05/19/2021 12 12 Encounter Details Date Type Department Care Team (Late st Contact Info) Description 08/09/2020 3:00 PM EST [place] [address] [facility] [place] [address] Renal cell carcinoma, unspecified laterality Social History [...] Sign Reading Time Taken Comments Blood Pressure 147/90 08/09/2020 3:08 PM EST Pulse 58 08/09/2020 3:08 PM EST Temperature - - Respiratory Rate - - Oxygen Saturation - - Inhaled Oxygen Concentration - - Weight - - Height - - Body Mass Index - - documented in this encounter Progress Notes * Toni Akbar MD - 08/09/2020 3:00 PM EST UROLOGY FOLLOW UP ?? 70 yo male who underwent a laparoscopic radical left nephrectomy in May [address] Jenkins for a pT3a RCC, clear cell, Kimberli 2, Mg-. He has done well since last visit and specifically denies any hematuria or abdominal pain, except for left groin discomfort. ?? Past Medical History: Diagnosis Date ??? Cancer of kidney ? Left ??? HTN (hypertension) ? Past Surgical History: Procedure Laterality Date ??? APPENDECTOMY ?? 1973 ??? CYST REMOVAL ? PRG RADEX HIP UNILATERAL WITH PELVIS MINIMUM 4 VIEWS Left 01/15/2017 ?? HIP INTRAOP RADIOLOGIC EXAMINATION, UNILATERAL, W PELVIS; 4+ VIEWS (WRVU 0.27) performed by Pineda Montague MD at [facility] MAIN OR ??? PRO COLONOSCOPY, DIAGNOSTIC N/A 09/26/2014 ?? COLONOSCOPY, DIAGNOSTIC performed by Nina Almaguer MD at [facility] ENDOSCOPY ??? PRO LAP, RADICAL NEPHRECTOMY ?? 06/07/2014 ?? @LAPAROSCOPY, RADICAL NEPHRECTOMY performed by Jarocho Jenkins MD at [facility] OR ??? PRO REPAIR ING HERNIA, 5+Y/O, REDUCIBL Left 07/07/2015 ?? REPAIR INGUINAL HERNIA, 5 YR OR OLDER, REDUCIBLE performed by Flash Rivas MD at [facility] MAIN OR ??? PRO TOTAL HIP ARTHROPLASTY Left 01/15/2017 ?? @TOTAL HIP ARTHROPLASTY, ANTERIOR APPROACH (WRVU 20.72) performed by Pineda Montague MD at [facility] MAIN OR ??? PRO UPPER GI ENDOSCOPY, BIOPSY N/A 09/26/2014 ?? EGD WITH BIOPSY performed by Nina Almaguer MD at [facility] ENDOSCOPY ??? TOTAL NEPHRECTOMY Left 06/07/14 ?? Social History ?? Social History ??? Marital status: Single ? Spouse name: N/A ??? Number of children: N/A ??? Years of education: N/A ?? Social History Main Topics ??? Smoking status: Former Smoker ? Quit date: 05/28/1970 ??? Smokeless tobacco: Never Used ??? Alcohol use No ??? Drug use: No ??? Sexual activity: Not on file ?? Other Topics Concern ??? Not on file ?? Social History Narrative ?? Family History Problem Relation Age of Onset ??? Cancer Sister ? ROS: negative for fever, chills, nausea, vomiting, diarrhea, constipation, hematuria, dysuria, CP, SOB ?? Patient Vitals for the past 24 hrs: Pulse BP 08/09/20 1508 58 147/90 Alert, oriented, nad Soft, nontender abdomen External genitalia normal, no hernia noted Extremities well perfused ?? Results for SHREE ORTEZ JR. ( ) as of 08/09/2020 15:11 Ref. Range 08/09/2020 13:03 Sodium Latest Ref Range: 135 - 145 mmol/L 140 Potassium Latest Ref Range: 3.5 - 5.0 mmol/L 4.3 Chloride Latest Ref Range: 98 - 107 mmol/L 108 (H) CO2 Latest Ref Range: 22 - 31 mmol/L 25 Anion Gap Latest Ref Range: 5 - 15 mmol/L 7 BUN Latest Ref Range: 10 - 20 mg/dL 20 Creatinine Latest Ref Range: 0.80 - 1.50 mg/dL 1.20 eGFR Latest Ref Range: >=60 mL/min/1.73 m?? 61 eGFR Latest Ref Range: >=60 mL/min/1.73 m?? 71 Calcium Latest Ref Range: 8.5 - 10.5 mg/dL 9.1 Glucose Lvl Latest Ref Range: 65 - 199 mg/dL 103 EXAMINATION: XR CHEST PA AND LATERAL (GENERIC) ?? CLINICAL HISTORY: history of RCC s/p left nephrectomy ? TECHNIQUE: PA and lateral views of the chest ?? COMPARISON: 2 view x-ray chest 06/29/2018 ?? FINDINGS: Nodular opacities right greater than left [...] back to CT scan of June 2018. ?? IMPRESSION Suspected nipple shadows mimicking pulmonary nodules. Recommend repeat chest radiograph with nipple markers. CT abdomen reviewed by me showing no evidence of recurrent disease. ?? A/P: pT3a RCC s/p left lap radical nephrectomy with no evidence of disease recurrence 6 years out. I recommended to repeat the CXR given the findings of ?nipple shadows, otherwise he'll f/u as needed in the future. 19 minutes of this 20 minutes encounter was spent in counseling and coordination of care documented in this encounter Plan of Treatment Scheduled Procedures Name Priority Associated Diagnoses Date/Ti me EGD, UPPER GI ENDOSCOPY (WRV U 2.09) Esophageal dysphagia Encounter for colorectal cancer screening COLONOSCOPY, DIAGNOSTIC (WRV U 3.26) Esophageal dysphagia Encounter for colorectal cancer screening documented as of this encounter Visit Diagnoses Diagnosis Renal cell carcinoma, unspecified laterality documented in this encounter Care Teams Welfare Service Aide Relationship Specialty Start Date End Date Norma Murdock APRN [address] [place] [address] PCP - General Family Medicine 05/22/20 07/10/23 documented as of this encounter
--- OUTSIDE RECORDS SUMMARY | 2024-07-19 16:48 | XMS_ITS | Encounter Summary ---
Author Organization [facility] [address] [place] [place] [address] Care Team Providers Care Estimator And Drafter Name Role Phone Norma Murdock APRN Primary Care Provider [phone] Encounter Details Date Type Department Care Team (Late st Contact Info) Description 08/21/2020 Telephone Urology at [facility] [place] [phone] Toni Akbar MD [facility] [place] [address] Social History Tobacco Use Types Packs/Day Years [...] encounter Miscellaneous Notes * Telephone Encounter - Toni Akbar MD - 08/21/2020 9:18 AM EST I attempted to contact the patient to discuss the results of the recent CXR. I left him a message with the results (which was negative for any pulmonary pathology) and encouraged him to contact me back with any questions. documented in this encounter Plan of Treatment Scheduled Procedures Name Priority Associated Diagnoses Date/Ti me EGD, UPPER GI ENDOSCOPY (WRV U 2.09) Esophageal dysphagia Encounter for colorectal cancer screening COLONOSCOPY, DIAGNOSTIC (WRV U 3.26) Esophageal dysphagia Encounter for colorectal cancer screening documented as of this encounter Visit Diagnoses Not on filedocumented in this encounter Care Teams Estimator And Drafter Relationship Specialty Start Date End Date Norma Murdock APRN [address] [place] [address] PCP - General Family Medicine 05/22/20 07/10/23 documented as of this encounter
--- OUTSIDE RECORDS SUMMARY | 2024-07-19 16:48 | XMS_ITS | Encounter Summary ---
Author Organization [facility] Address [facility] [address] [facility] [place] [address] Care Team Providers Care Smoking Tobacco Cutter Operator Name Role Phone Norma Murdock APRN Primary Care Provider [phone] Reason for Visit * Reason Comments Follow-up L JOHN ANT 01/15/17 Encounter Details Date Type Department Care Team (Late st Contact Info) Description 01/18/2021 1:00 PM EDT Office [place] [address] Pineda Montague MD Status post total replacement [...] Sign Reading Time Taken Comments Blood Pressure 132/85 01/18/2021 12:58 PM EDT Pulse 69 01/18/2021 12:58 PM EDT Temperature - - Respiratory Rate - - Oxygen Saturation - - Inhaled Oxygen Concentration - - Weight - - Height 172.7 cm (5' 8) 01/18/2021 12:58 PM EDT Body Mass Index - - documented in this encounter Progress Notes * Юлия Medina PA - 01/18/2021 1:00 PM EDT Arthroplasty/Orthopaedic History: 1. Left JOHN - 01/15/17 - Dr. Montague 2. Left reverse TSA in [facility] 2020 HPI: Shree Ortez Jr. is a very pleasant 70 y.o. year-old male and is now 4 years post left totalhip replacement. The patient has been doing well overall. The patient is not having any pain. No fevers, chills, nausea, vomiting, or symptoms of infection. Shree has been ambulating with no assistive device and is working with PT for his left shoulder only. He is not taking narcotic pain medicine. He is not too bad. Left hip doing well for him. Gets occasional hip trouble when he moves just right or tweaks it wrong. Ambulates with no assistive device. Able to do all of his normal activities. He works with wood in his free time. ROS: Denies: fever, chills, night sweats, nausea, or vomiting Patient Vitals for the past 24 hrs: Pulse BP 01/18/21 1258 69 132/85 Physical Exam: Well-appearing male in no acute distress. Alert and Oriented x 3 and answers all questions appropriately. Hip Exam: Left Leg Length: Longer leg: equal Limb Length discrepancy: 0cm Motion: Flexion contracture: 0 Total degrees of Flexion: 125 Total degrees of Abduction: 25 Total degrees of Ext Rotation: 20 Total degrees of Internal Rotation: 15 Gait Abnormality: did not witness Pulses Palpable: Left PT: wearing boots, did not test Left DP: wearing boots, did not test Motor/Sensory: Left Distal Motor: Normal Distal Sensory: Normal Hip Abductors: 4+ X-RAYS: Multiple radiographic views were obtained at my request and reviewed with Shree. X-rays show a well-placed prosthesis with no evidence of fracture, subsidence, loosening, or periprosthetic complication. Questionnaire Responses: [facility] Surgical Postop Visit 01/01/2018 PROMIS-10 General Health [...] Choose Same Treatment Again Probably yes Orthopeadics [facility] Response 01/01/2018 HOOS JR Scores 64.66 Spine [facility] Response 01/01/2018 HOOS JR Scores 64.66 ASSESSMENT/PLAN: Mr. Ortez is a 70 y.o. year old male status post left total hip replacement. Doing well postoperatively. Able to do all of his normal activities. Continue weightbearing as toleratedand working on range of motion. We will see him back in 3 years for repeat examination. New X-rays will [...] updated recommendations All questions were answered. Signed: BRIDGETT Recinos 01/18/2021 documented in this encounter Plan of Treatment Scheduled Procedures Name Priority Associated Diagnoses Date/Ti me EGD, UPPER GI ENDOSCOPY (WRV U 2.09) Esophageal dysphagia Encounter for colorectal cancer screening COLONOSCOPY, DIAGNOSTIC (WRV U 3.26) Esophageal dysphagia Encounter for colorectal cancer screening documented as of this encounter Visit Diagnoses Diagnosis Status post total replacement of left hip documented in this encounter Care Teams Smoking Tobacco Cutter Operator Relationship Specialty Start Date End Date Norma Murdock APRN [address] [place] [address] PCP - General Family Medicine 05/22/20 07/10/23 documented as of this encounter
--- OUTSIDE RECORDS SUMMARY | 2024-07-19 16:49 | XMS_ITS | Encounter Summary ---
Author Organization [facility] Address [facility] [place] [address] Care Team Providers Care Shear Scrapman Name Role Phone Duke Ramos MD Primary Care Provider [phone] Encounter Details Date Type Department Care Team (Late st Contact Info) Description 01/06/2017 Notes Only Care Management [facility] [place] [address] Oly Presley Social History Tobacco Use Types Packs/Day Years [...] encounter Progress Notes * Oly Alonso - 01/06/2017 9:22 AM EDT I briefly met with patient on January 03 after his appointment with Dr. Montague. We discussed the concern about discharge plans. Shree would like to go to a custodial facility postoperatively. Should he be medically able to discharge home, his home situation is not ideal for a successful recovery from a total joint replacement. There is concerns that demands of care could be 2 challenging for him postoperatively should he return to his house. The primary concerns are that he has no running water hence, [place]. It does not seem like a safe situation at this time. Jesus stated that he does not supports in his life that could come to stay with him for appears timepostoperatively know nor are there supports he himself go stay with postoperatively. I informed Jesus that I would look into a custodial facilities that except his insurance. However I reiterated that referrals and acceptance are made postoperatively when the facility has the opportunity to review the notes on him postoperatively. I made increase to: [facility] I requested that facilities review and call me as to their opinion about this potential admission. I informed Jesus that I will follow-up with him on an as-needed basis. I will continue to keep Dr. Montague informed as to the progress of setting up discharge plans. documented in this encounter Plan of Treatment Scheduled Procedures Name Priority Associated Diagnoses Date/Ti me EGD, UPPER GI ENDOSCOPY (WRV U 2.09) Esophageal dysphagia Encounter for colorectal cancer screening COLONOSCOPY, DIAGNOSTIC (WRV U 3.26) Esophageal dysphagia Encounter for colorectal cancer screening documented as of this encounter Visit Diagnoses Not on filedocumented in this encounter Care Teams Shear Scrapman Relationship Specialty Start Date End Date Duke Ramos MD [address] [place] [address] PCP - General Family Medicine 08/23/16 06/28/18 documented as of this encounter
--- OUTSIDE RECORDS SUMMARY | 2024-07-19 16:49 | XMS_ITS | Encounter Summary ---
[place] [address] Care Team Providers Care Marble Polisher Name Role Phone Unavailable Primary Care Provider Unavailabl e Reason for Referral * Diagnostic Test (Routine) - Closed Specialty Diagnoses / Procedures Referred By Ugo maynard Referred To Contact Radiology Diagnoses History of kidney cancer Procedures CT Abdomen With/Wo Contrast Jarocho Jenkins MD [address] [place] [address] [facility] [place] [address] Referral ID Status Reason Start Date Expiration Date V isits Requested Visits Authorized [id number] Closed Specialty Service Requested 03/10/2016 03/10/2017 1 1 Encounter Details Date Type Department Care Team (Late st Contact Info) Description 09/12/2015 [place] [address] Jarocho Jenkins MD [address] [place] [address] [id number] Social History Tobacco Use Types Packs/Day Years [...] encounter Miscellaneous Notes * Telephone Encounter - Jarocho Jenkins MD - 09/12/2015 9:12 AM EST Orders only documented in this encounter Plan of Treatment Scheduled Procedures Name Priority Associated Diagnoses Date/Ti me EGD, UPPER GI ENDOSCOPY (WRV U 2.09) Esophageal dysphagia Encounter for colorectal cancer screening COLONOSCOPY, DIAGNOSTIC (WRV U 3.26) Esophageal dysphagia Encounter for colorectal cancer screening documented as of this encounter Results * CT Abdomen With/Wo Contrast (03/14/2016 12:51 PM EDT) Anatomical Region Laterality Modality Abdomen Computed Tomogra phy Impressions 03/14/2016 1:52 PM EDT Stable exam. No evidence of local disease recurrence. Post left nephrectomy. Narrative 03/14/2016 1:52 PM EDT EXAMINATION: ??CT ABDOMEN WITH/WO CONTRAST CLINICAL HISTORY: ??surveillance kidney cancer TECHNIQUE: Helical CT of the abdomen was performed prior to and following the intravenous administration of contrast. ??50 cc of Visipaque 320 was given. Oral contrast was administered. A renal protocol was performed. COMPARISON: ??September 11, 2015 FINDINGS: Liver: ??Normal as visualized Bile ducts: ??Nondilated. Gallbladder: ??No calcified gallstones. Normal caliber wall. Pancreas: ??Normal. Spleen: ??Normal. Adrenal: ??Normal. Kidneys: ??Post left nephrectomy. The postoperative bed is stable. No local tumor recurrence or complication. The right kidney is normal. Bowel: Nondilated, no inflammatory changes, as visualized. Lymph nodes: ??No enlarged lymph nodes. Peritoneum: ??No ascites or free air, no fluid collection. Vasculature: Normal Osseous structures: No suspicious lesions. Procedure Note Jorge Block MD - 03/14/2016 EXAMINATION: CT ABDOMEN WITH/WO CONTRAST CLINICAL HISTORY: surveillance kidney cancer TECHNIQUE: Helical CT of the abdomen was performed prior to and followingthe intravenous administration of contrast. 50 cc of Visipaque 320 was given.Oral contrast was administered. A renal protocol was performed. COMPARISON: September 11, 2015 FINDINGS: Liver: Normal as visualized Bile ducts: Nondilated. Gallbladder: No calcified gallstones. Normal caliber wall. Pancreas: Normal. Spleen: Normal. Adrenal: Normal. Kidneys: Post left nephrectomy. The postoperative bed is stable. No localtumor recurrence or complication. The right kidney is normal. Bowel: Nondilated, no inflammatory changes, as visualized. Lymph nodes: No enlarged lymph nodes. Peritoneum: No ascites or free air, no fluid collection. Vasculature: Normal Osseous structures: No suspicious lesions. IMPRESSION Stable exam. No evidence of local disease recurrence. Post leftnephrectomy. Jarocho Jenkins MD IMG CT ORDERABLES documented in this encounter Visit Diagnoses Diagnosis History of kidney cancer Personal history of malignant neoplasm of kidney History of kidney cancer Personal history of malignant neoplasm of kidney documented in this encounter
--- OUTSIDE RECORDS SUMMARY | 2024-07-19 16:49 | XMS_ITS | Encounter Summary ---
[place] [address] Care Team Providers Care Archaeologist Name Role Phone Unavailable Primary Care Provider Unavailabl e Reason for Referral * Diagnostic Test (Routine) - Closed Specialty Diagnoses / Procedures Referred By Ugo maynard Referred To Contact Radiology Diagnoses History of kidney cancer Procedures CT Abdomen With/Wo Contrast Jarocho Jenkins MD [address] [place] [address] [facility] [place] [address] Referral ID Status Reason Start Date Expiration Date V isits Requested Visits Authorized [id number] Closed Specialty Service Requested 03/10/2016 03/10/2017 1 1 Reason for Visit * Diagnostic Test (Routine) - Closed Specialty Diagnoses / Procedures Referred By Ugo maynard Referred To Contact Radiology Diagnoses History of kidney cancer Procedures CT Abdomen With/Wo Contrast Jarocho Jenkins MD [address] [place] [address] [facility] [place] [address] Referral ID Status Reason Start Date Expiration Date V isits Requested Visits Authorized [id number] Closed Specialty Service Requested 03/10/2016 03/10/2017 1 1 Encounter Details Date Type Department Care Team (Latest Contact Info) Description 03/14/2016 11:19 AM EDT - 03/14/2016 11:59 PM EDT Hospital [place] [address] Jarocho Jenkins MD [address] [place] [id number] History of kidney cancer Discharge Disposition: Home [...] Take 2 tablets by mouth every 8 hours as needed for Pain. 06/09/2014 01/17/2017 terazosin (HYTRIN) 1 mg capsule Take 1 [...] Priority Date/Time Associated Diagnosis Comments CT ABDOMEN WWO CONTRAST Routine 03/14/2016 12:51 PM EDT History of kidney cancer documented in this encounter Results * CT Abdomen With/Wo [...] neoplasm of kidney documented in this encounter Administered Medications Inactive Administered Medications - up to 3 most recent administrations Medication Order MAR Action Action Date Dose Rate Site iodixanol (VISIPAQUE) 320 mg iodine/mL injection 50 mL 50 mL, Intravenous, ONCE PRN, 1 dose, Starting on Natty 03/14/16 at 1226, Until Natty 03/14/16 at 1227, Per Protocol, Routine Given 03/14/2016 12:27 PM EDT 50 mLs documented in this encounter
--- OUTSIDE RECORDS SUMMARY | 2024-07-19 16:49 | XMS_ITS | Encounter Summary ---
Author Organization [facility] [place] [place] [address] Care Team Providers Care Ball Worker Name Role Phone Duke Ramos MD Primary Care Provider [phone] Encounter Details Date Type Department Care Team (Late st Contact Info) Description 07/15/2016 Telephone Urology at [facility] [place] [phone] Jarocho Jenkins MD [address] [place] [address] Social History Tobacco Use Types Packs/Day Years [...] encounter Miscellaneous Notes * Telephone Encounter - Jasmina Boateng - 07/15/2016 11:47 AM EDT Pt called to ask about the results of his CT scan done in March 2016. Please advise, and send results to his PCP. documented in this encounter Plan of Treatment Scheduled Procedures Name Priority Associated Diagnoses Date/Ti me EGD, UPPER GI ENDOSCOPY (WRV U 2.09) Esophageal dysphagia Encounter for colorectal cancer screening COLONOSCOPY, DIAGNOSTIC (WRV U 3.26) Esophageal dysphagia Encounter for colorectal cancer screening documented as of this encounter Visit Diagnoses Not on filedocumented in this encounter Care Teams Ball Worker Relationship Specialty Start Date End Date Duke Ramos MD [address] [place] [address] PCP - General Family Medicine 08/23/16 06/28/18 documented as of this encounter
--- OUTSIDE RECORDS SUMMARY | 2024-07-19 16:49 | XMS_ITS | Encounter Summary ---
Author Organization [facility] [place] [address] Care Team Providers Care Hospital Attendant Name Role Phone Unavailable Primary Care Provider Unavailabl e Encounter Details Date Type Department Care Team (Late st Contact Info) Description 09/12/2015 Orders Only [facility]rology [facility] [place] [phone] Jarocho Jenkins MD [address] [place] [address] History of kidney cancer Social History Tobacco [...] as of this encounter Visit Diagnoses Diagnosis History of kidney cancer Personal history of malignant neoplasm of kidney documented in this encounter
--- OUTSIDE RECORDS SUMMARY | 2024-07-19 16:49 | XMS_ITS | Encounter Summary ---
Author Organization [facility] Address [facility] [place] [place] [place] [address] Care Team Providers Care Brass Pourer Name Role Phone Duke Ramos MD Primary Care Provider [phone] Encounter Details Date Type Department Care Team (Latest Contact Info) Description 12/23/2016 10:40 AM EDT Clinical Support Same Day at [facility] [place] [phone] Primary osteoarthritis of left hip Social History Tobacco Use [...] Taken Comments Blood Pressure - - Pulse 97 12/23/2016 10:07 AM EDT Temperature - - Respiratory Rate - - Oxygen Saturation 98% 12/23/2016 10:07 AM EDT Inhaled Oxygen Concentration - - Weight 99.2 kg (218 lb 9.6 oz) 12/23/2016 10:07 AM EDT Height 172.7 cm (5' 8) 12/23/2016 10:07 AM EDT Body Mass Index 33.24 12/23/2016 10:07 AM EDT documented in this encounter Progress Notes * Sheri Mckeon RN - 12/23/2016 10:40 AM EDT PAT questionnaire reviewed with patient while in Pre Admission testing. Pt has tolerated anesthesiain the past. Pt with difficulty doing stairs d/t left hip and gets a little winded. Pt reports blood pressure is up and down. Pt has only one kidney. Pre-operative instruction booklet reviewed. Patient verbalizes a good understanding of all information reviewed. PLAN: Testing: Type and screen, other labs, EKG Special medication instructions: Procedure date: 01/15/17 Dr Montague documented in this encounter Plan of Treatment Scheduled Procedures Name Priority Associated Diagnoses Date/Ti me EGD, UPPER GI ENDOSCOPY (WRV U 2.09) Esophageal dysphagia Encounter for colorectal cancer screening COLONOSCOPY, DIAGNOSTIC (WRV U 3.26) Esophageal dysphagia Encounter for colorectal cancer screening documented as of this encounter Procedures Procedure Name Priority Date/Time Associated Diagnosis Comments EKG 12-LEAD Routine 12/23/2016 10:55 AM EDT Primary osteoarthritis of left hip documented in this encounter Results * EKG 12 Lead (12/23/2016 10:55 AM EDT) Ventricular rate 71 BPM MUSE SYSTEM Atrial Rate 71 BPM MUSE SYSTEM P-R Interval 160 ms MUSE SYSTEM QRS Duration 96 ms MUSE SYSTEM Q-T Interval 368 ms MUSE SYSTEM QTC Calculated (Bezet) 399 ms MUSE SYSTEM Calculated P [place] 24 degrees MUSE SYSTEM Calculated R [place] 55 degrees MUSE SYSTEM Calculated T [place] 59 degrees MUSE SYSTEM INTERPRETATION Normal sinus rhythm Normal ECG No previous ECGs available Confirmed by MD Korina, Alyx ([id number]) on 12/23/2016 6:06:17 PM MUSE SYSTEM 12/23/2016 10:5 5 AM EDT 12/23/2016 6:06 PM EDT Pineda Montague MD ECG ORDERABLES MUSE SYSTEM documented in this encounter Visit Diagnoses Diagnosis Primary osteoarthritis of left hip Primary localized osteoarthrosis, pelvic region and thigh documented in this encounter Care Teams Brass Pourer Relationship Specialty Start Date End Date Duke Ramos MD [address] [place] [address] PCP - General Family Medicine 08/23/16 06/28/18 documented as of this encounter
--- OUTSIDE RECORDS SUMMARY | 2024-07-19 16:49 | XMS_ITS | Encounter Summary ---
Author Organization [facility] [place] [address] Care Team Providers Care Spiritual Advisor Name Role Phone Duke Ramos MD Primary Care Provider [phone] Reason for Visit * Reason Comments Left Hip Pain Left Shoulder Pain * Consultation (Routine) - Closed Specialty Diagnoses / Procedures Referred By Ugo maynard Referred To Contact Orthopaedics Diagnoses left hip pain Left shoulder pain Duke Ramos MD [address] [place] [address] [facility] [address] [place] [phone] Referral ID Status Reason Start Date Expiration Date V isits Requested Visits Authorized [id number] Closed Consult, Test & Treat [facility] 08/23/2016 08/23/2017 1 1 Encounter Details Date Type Department Care Team (Latest Contact Info) Description 10/22/2016 10:30 AM EST Office [place] [phone] Vance Jose MD [facility] DR ORTHOPAEDIC [facility]ERY [place], [place] [id number] Primary osteoarthritis of left shoulder; Primary osteoarthritis of left hip Social History [...] Sign Reading Time Taken Comments Blood Pressure 159/95 10/22/2016 9:39 AM EST Pulse 85 10/22/2016 9:39 AM EST Temperature - - Respiratory Rate - - Oxygen Saturation - - Inhaled Oxygen Concentration - - Weight 95.3 kg (210 lb) 10/22/2016 9:39 AM EST Height 172.7 cm (5' 8) 10/22/2016 9:39 AM EST Body Mass Index 31.93 10/22/2016 9:39 AM EST documented in this encounter Progress Notes * Jody Patel MD - 10/22/2016 10:30 AM EST CHIEF COMPLAINT: Left shoulder and left hip pain. HPI: Mr. Ortez is a 66-year-old male who says that he has had many years of left shoulder and left hip pain that have been getting progressively worse. He actually describes the left hip pain as being much more severe and even radiating down to his knee, occasionally leading to instability and buckling of his left leg, mostly due to pain; however, his primary source is within the left buttock and groin region. He has not sought any treatment for this and has not taken even any antiinflammatories for this. Additionally, he does have severe left shoulder pain, although this does not seem to bother him quite as much as his hip. 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 He denies any radicular symptoms, numbness, or tingling in either the left upper or left lower extremity. PAST MEDICAL HISTORY: Significant for a prior renal tumor, unknown origin. PAST SURGICAL HISTORY: Significant for a prior nephrectomy and hernia repair in addition to cataract surgery. Allergies and medications are reviewed in [facility]. SOCIAL HISTORY: Patient lives alone. He denies smoking. Does drink socially. Left hand dominant. Currently, retired. PHYSICAL EXAM: In general, patient is a 66-year-old male in no acute distress. He walks with a severely antalgic gait on the left side with a very short stance phase. Additionally, on supine examination he has a roughly half to 1 cm limb length discrepancy with the left leg being shorter. He is very limited with any internal rotation of the left hip and flexion an does have obligate external rotation with roughly 70 degrees of hip flexion. Left upper extremity exam reveals that he is able to forward flex actively to 120 degrees, but he does have some weakness limited by pain with resisted external rotation and resisted forward flexion. Additionally, he has very limited passive external rotation of roughly 5-10 degrees compared to 40 degrees on his contralateral shoulder. Sensation grossly intact to light touch in the axillary, median, radial, and ulnar nerve distributions. 2+ radial pulse. IMAGING: X-ray of the left shoulder demonstrates significant joint space narrowing and a large inferior humeral osteophyte consistent with primary osteoarthritis of the left shoulder. Left hip x-ray demonstrates end-stage arthritis with very severe joint space narrowing, subchondral sclerosis, and large osteophyte formation around the left hip. The right hip interestingly is very well preserved. ASSESSMENT AND PLAN: Shree Ortez is a 66-year-old male who presents with end-stage arthritis of his left hip and left shoulder. Because the left hip is much more symptomatic and he relies on this for ambulation, we suggested that he first be evaluated for potential arthroplasty and other treatment options by one of our joint replacement surgeons. We did place a referral for this. Additionally, in order to help with his left shoulder pain in the meantime while he is being worked up for his left hip, we ordered a fluoro-guided injection to the left shoulder. If after he has treated his hip he still wishes to undergo intervention for his left shoulder, he should feel free to come back and we can discuss total shoulder arthroplasty at that time. Attending Note I performed a history and physical exam of the patient and discussed the patient's management with Dr. Patel. I have reviewed the office note and agree with the documented findings and plan of care. 66 yo gentleman with longstanding left hip and shoulder pain. Presently has a significant antalgicgait 2/2 hip pain and has difficulty with ADL 2/2 pain and motion limitation in shoulder. Radiographs reveal severe DJD of both hip and shoulder. Would recommend approaching hip first if choosing to have both joints reconstructed. Will perform intraarticular steroid injection into shoulder and refer to arthroplasty team for hip. Vance Jose MD Correctional Supply Supervisor Orthopaedic Surgery Dept. of Orthopaedic Surgery [facility] documented in this encounter Plan of Treatment Scheduled Procedures Name Priority Associated Diagnoses Date/Ti me EGD, UPPER GI ENDOSCOPY (WRV U 2.09) Esophageal dysphagia Encounter for colorectal cancer screening COLONOSCOPY, DIAGNOSTIC (WRV U 3.26) Esophageal dysphagia Encounter for colorectal cancer screening documented as of this encounter Results * XR Fluoro Injection Joint Lg Left (10/24/2016 10:55 AM EST) Anatomical Region Laterality Modality Left Radio Fluoroscop y Impressions 10/24/2016 11:17 AM EST Uneventful left glenohumeral joint injection under fluoroscopy. Fellow: Pastor Appiah MD Attending: Yudelka Dodson MD I was present for and supervised this entire procedure. I have personally reviewed the image(s) and the residents interpretation and agree with the findings, YUDELKA DODSON at 10/24/2016 11:17 AM Narrative 10/24/2016 11:17 AM EST HISTORY: Left shoulder osteoarthritis LEFT GLENOHUMERAL JOINT INJECTION UNDER FLUOROSCOPY TECHNIQUE: After an extensive conversation with the patient regarding risks and benefits, oral and written consent were obtained. ??A pre- procedural time-out was performed as per [facility] protocol. The patient was placed supine on the fluoroscopic table. ??The left shoulder was prepped and draped in the usual aseptic manner. 1% Lidocaine was used to achieve local anesthesia. Under fluoroscopic guidance, a 22-gauge 3.5 spinal needle was advanced into the joint space. ??Small amount of iodinated contrast (Omnipaque 300) was injected to document needle placement. ??A mixture of Ropivacaine and triamcinolone acetonide was injected. All needles removed at end of procedure. FINDINGS: 1. ??Small amount of contrast in the left glenohumeral joint space. 2. ??PAIN SCORE: ??Before: 8/10 ??After: 2/10 3. Fluoroscopy time: 0.07 minutes 4. Medications: ??Lidocaine 1% - <5 ml, for subcutaneous anesthesia ??Ropivacaine HCL ??0.5% - 3 ml ??Triamcinolone Acetonide ??- 40 mg COMPLICATIONS: ??None immediate. POST-PROCEDURE CARE: Information regarding monitor of infection, post- procedural pain and management of steroid flare were reviewed with patient. Procedure Note Yudelka Dodson MD - 10/24/2016 HISTORY: Left shoulder osteoarthritis LEFT GLENOHUMERAL JOINT INJECTION UNDER FLUOROSCOPY TECHNIQUE: After an extensive conversation with the patient regardingrisks and benefits, oral and written consent were obtained. A pre- proceduraltime-out was performed as per [facility] protocol. The patient was placed supine on the fluoroscopic table. The leftshoulder was prepped and draped in the usual aseptic manner. 1% Lidocaine was used toachieve local anesthesia. Under fluoroscopic guidance, a 22-gauge 3.5 spinalneedle was advanced into the joint space. Small amount of iodinated contrast(Omnipaque 300) was injected to document needle placement. A mixture of Ropivacaineand triamcinolone acetonide was injected. All needles removed at end ofprocedure. FINDINGS: 1. Small amount of contrast in the left glenohumeral joint space. 2. PAIN SCORE: Before: 8/10 After: 2/10 3. Fluoroscopy time: 0.07 minutes 4. Medications: Lidocaine 1% - <5 ml, for subcutaneous anesthesia Ropivacaine HCL 0.5% - 3 ml Triamcinolone Acetonide - 40 mg COMPLICATIONS: None immediate. POST-PROCEDURE CARE: Information regarding monitor of infection, post- procedural pain and management of steroid flare were reviewed withpatient. IMPRESSION Uneventful left glenohumeral joint injection under fluoroscopy. Fellow: Pastor Appiah MD Attending: Yudelka Dodson MD I was present for and supervised this entire procedure. I have personally reviewed the image(s) and the residents interpretationand agree with the findings, YUDELKA DODSON at 10/24/2016 11:17 AM Vance Jose MD IMG FLUORO ORDERABLE S documented in this encounter Visit Diagnoses Diagnosis Primary osteoarthritis of left shoulder Primary localized osteoarthrosis, shoulder region Primary osteoarthritis of left hip Primary localized osteoarthrosis, pelvic region and thigh Primary osteoarthritis of left shoulder Primary localized osteoarthrosis, shoulder region documented in this encounter Care Teams Spiritual Advisor Relationship Specialty Start Date End Date Duke Ramos MD [address] [place] [address] PCP - General Family Medicine 08/23/16 06/28/18 documented as of this encounter
--- OUTSIDE RECORDS SUMMARY | 2024-07-19 16:49 | XMS_ITS | Encounter Summary ---
Author Organization [facility] [place] [address] Care Team Providers Care Chairman And Chief Executive Officer Name Role Phone Duke Ramos MD Primary Care Provider [phone] Reason for Referral * Diagnostic Test (Routine) - Closed Specialty Diagnoses / Procedures Referred By Ugo maynard Referred To Contact Radiology Diagnoses History of kidney cancer Procedures CT Abdomen wwo Contrast Jarocho Jenkins MD [address] [place] [address] [facility] [place] [address] Referral ID Status Reason Start Date Expiration Date V isits Requested Visits Authorized [id number] Closed Specialty Service Requested 07/15/2016 07/15/2017 1 1 Reason for Visit * Diagnostic Test (Routine) - Closed Specialty Diagnoses / Procedures Referred By Ugo maynard Referred To Contact Radiology Diagnoses History of kidney cancer Procedures CT Abdomen wwo Contrast Jarocho Jenkins MD [address] [place] [id number] [facility] [place] [address] Referral ID Status Reason Start Date Expiration Date V isits Requested Visits Authorized [id number] Closed Specialty Service Requested 07/15/2016 07/15/2017 1 1 Encounter Details Date Type Department Care Team (Latest Contact Info) Description 10/22/2016 12:57 PM EST - 10/22/2016 11:59 PM EST Hospital [place] [address] Jarocho Jenkins MD [address] [place] [id number] History of kidney cancer Discharge Disposition: Home [...] Sig Dispensed Refills Start Date End Date albuterol (PROVENTIL) 2.5 mg/0.5 mL Solution for Nebulization Take 2.5 mg by nebulization every 4 hours as needed for Wheezing. Reported on 10/22/2016 12/23/2016 acetaminophen (TYLENOL) 500 mg Tablet Take 2 [...] Diagnosis Comments CT ABDOMEN WWO CONTRAST Routine 10/22/2016 2:59 PM EST History of kidney cancer documented in this encounter Results * CT Abdomen wwo Contrast (10/22/2016 2:59 PM EST) Anatomical Region Laterality Modality Abdomen Computed Tomogra phy Impressions 10/22/2016 3:47 PM EST 1. ??No evidence of recurrent or metastatic disease. Stable appearance right kidney. Narrative 10/22/2016 3:47 PM EST EXAMINATION: ??CT ABDOMEN WWO CONTRAST CLINICAL HISTORY: ??f/u RCC s/p nephrectomy; w/ and w/o IV contrast TECHNIQUE: Helical CT of the abdomen was performed prior to and following the intravenous administration of contrast. ??110 cc of Omnipaque 350 was given. Oral contrast was administered. COMPARISON: ??03/14/2016 FINDINGS: Liver: ??Normal. Bile ducts: ??Nondilated Gallbladder: ??No calcified gallstones. Normal caliber wall. Pancreas: ??Normal. Spleen: ??Normal. Adrenal: ??Normal. Kidneys: ??Right kidney appear stable. There is no pelviectasis. No filling defects are seen within the right renal collecting system. Left nephrectomy bed is stable without evidence of recurrence. Bowel: Nondilated, no inflammatory changes. Lymph nodes: ??No enlarged lymph nodes. Peritoneum: ??No ascites or free air, no fluid collection. Vasculature: Minor atherosclerotic disease. Osseous structures: No suspicious lesions. Procedure Note Rachel Montalvo MD - 10/22/2016 EXAMINATION: CT ABDOMEN WWO CONTRAST CLINICAL HISTORY: f/u RCC s/p nephrectomy; w/ and w/o IV contrast TECHNIQUE: Helical CT of the abdomen was performed prior to and followingthe intravenous administration of contrast. 110 cc of Omnipaque 350 wasgiven. Oral contrast was administered. COMPARISON: 03/14/2016 FINDINGS: Liver: Normal. Bile ducts: Nondilated Gallbladder: No calcified gallstones. Normal caliber wall. Pancreas: Normal. Spleen: Normal. Adrenal: Normal. Kidneys: Right kidney appear stable. There is no pelviectasis. Nofilling defects are seen within the right renal collecting system. Leftnephrectomy bed is stable without evidence of recurrence. Bowel: Nondilated, no inflammatory changes. Lymph nodes: No enlarged lymph nodes. Peritoneum: No ascites or free air, no fluid collection. Vasculature: Minor atherosclerotic disease. Osseous structures: No suspicious lesions. IMPRESSION 1. No evidence of recurrent or metastatic disease. Stable appearanceright kidney. Jarocho Jenkins MD IMG CT ORDERABLES documented in this encounter Visit Diagnoses Diagnosis History of kidney cancer Personal history of malignant neoplasm of kidney documented in this encounter Administered Medications Inactive Administered Medications - up to 3 most recent administrations Medication Order MAR Action Action Date Dose Rate Site iodixanol (VISIPAQUE) 320 mg iodine/mL injection 70 mL 70 mL, Intravenous, ONCE PRN, 1 dose, Starting on Fri10/22/16 at 1501, Until Fri10/22/16 at 1501, Per Protocol, Routine Given 10/22/2016 3:01 PM EST 70 mLs documented in this encounter Care Teams Chairman And Chief Executive Officer Relationship Specialty Start Date End Date Duke Ramos MD [address] [place] [address] PCP - General Family Medicine 08/23/16 06/28/18 documented as of this encounter
--- OUTSIDE RECORDS SUMMARY | 2024-07-19 16:49 | XMS_ITS | Encounter Summary ---
[place] [address] Care Team Providers Care Force Variation Equipment Tender Name Role Phone Duke Ramos MD Primary Care Provider [phone] Reason for Visit * Auth/Cert Specialty Diagnoses / Procedures Referred By Ugo maynard Referred To Contact Diagnoses Primary osteoarthritis of left hip left hip osteoarthritis Procedures PRO TOTAL HIP ARTHROPLASTY @TOTAL HIP ARTHROPLASTY, ANTERIOR APPROACH (WRVU 20.72) MODIFIER CORAIL FEMORAL STEM DEPUY MODIFIER PINNACLE ACETABULUM DEPUY Referral ID Status Reason Start Date Expiration Date Visits Re quested Visits Authorized [id number] 1 1 Encounter Details Date Type Department Care Team (Latest Contact Info) Description 01/15/2017 5:52 AM EDT - 01/17/2017 1:49 PM EDT Hospital Encounter 3 [place] [address] Pineda Montague MD Primary osteoarthritis of left hip Discharge Disposition: [facility] Facility Social History Tobacco Use Types Packs/Day Years [...] Sign Reading Time Taken Comments Blood Pressure 140/87 01/17/2017 11:27 AM EDT Pulse 80 01/15/2017 2:30 PM EDT Temperature 36.9 ??C (98.4 ??F) 01/17/2017 1 1:27 AM EDT Respiratory Rate 17 01/17/2017 11:2 7 AM EDT Oxygen Saturation 97% 01/17/2017 11: 27 AM EDT Inhaled Oxygen Concentration - - Weight 99.2 kg (218 lb 11.1 oz) 01/15/2017 6:27 AM EDT Height 172.7 cm (5' 8) 01/17/2017 8:15 AM EDT per pt. report Body Mass Index 33.25 01/15/2017 6:27 AM EDT documented in this encounter Discharge Summaries * Holly Alejandra PA - 01/17/2017 12:51 PM EDT Discharge Summary Patient Name: Shree Ortez Jr. Patient Age: 66 y.o. Language: Malagasy Race: White Ethnicity: Not nor Admit date: 01/15/2017 Discharge date and time: 01/17/2017 Attending Physician: Pineda Montague MD Discharge Physician: Pineda Montague MD Follow-up Recommendations for Providers: See discharge instructions for additional details. Future Appointments Date Time Provider Department Center 02/13/2017 10:00 AM [facility] ROOM [facility] 02/13/2017 11:00 AM Pineda Montague MD [facility] 02/13/2017 11:30 AM ORTHO HEPATOLOGIST [facility] Ortho [facility] Inpatient Provider Contact Information: Pineda Montague MD Orthopedics: [phone] After hours and weekends, call [facility] Fab[employer]ator [employer], , and have the Orthopedic resident paged. Discharge Diagnoses (Hospital Problems) and Secondary Diagnoses (Chronic Problems): Active Hospital Problems Diagnosis ??? s/p LEFT anterior JOHN on 01/15/[address] Montague Resolved Hospital Problems Diagnosis Date Resolved No resolved problems to display. Active Non-Hospital Problems Diagnosis ??? Osteoarthritis of LEFT hip ??? Osteoarthritis of left shoulder ??? Dysphagia ??? Amputation of finger tip Operations/Major Procedures: 01/15/2017 Surgeon(s) and Role: * Pineda Montague MD - Primary * Jody Patel MD - Resident-Surgeon Chief Procedure(s): @TOTAL HIP ARTHROPLASTY, ANTERIOR APPROACH (WRVU 20.72) MODIFIER CORAIL FEMORAL STEM DEPUY MODIFIER PINNACLE ACETABULUM DEPUY HIP INTRAOP RADIOLOGIC EXAMINATION, UNILATERAL, W PELVIS; 4+ VIEWS (WRVU 0.27) History of Presentation: Shree Ortez Jr. is a 66 y.o. male with left hip osteoarthritis. After exhausting conservative measures, the patient elected to proceed with total hip arthroplasty. The risks and benefits of this procedure were reviewed in depth and patient received medical clearance prior to procedure. Hospital Course: The patient was admitted for the above operation. DVT prophylaxis is: Aspirin 81 mg twice daily x 30 days. Patient began rehab on POD#1 with weight bearing as tolerated of left leg and reinforcement of the JOHN Precautions. On POD#2 the operative dressing was dry and intact and was benign. Patient did not have a bowel movement prior to discharge but was passing flatus and was taking a diet withoutdifficulty. Patient was voiding spontaneously without issue. Pain was well controlled on oral medications. By POD#2 the patient was medically stable and was cleared for safe discharge to rehab per PT. Vital Signs at Discharge: Weight: Wt Readings from Last 1 Encounters: 01/15/ 99.2 kg (218 lb 11.1 oz) Height: Ht Readings from Last 1 Encounters: 01/17/ 172.7 cm (5' 8) HC: HC Readings from Last 1 Encounters: No data found for HC BMI: Body mass index is 33.25 kg/(m^2). Last value Range last 24 hrs Temperature Temp: 36.9 ??C (98.4 ??F) Temp: [36.7 ??C (98.1 ??F)-37 ??C (98.6 ??F)] Heart Rate Heart Rate: 80 Heart Rate: -- Blood Pressure BP: 140/87 BP: (140-146)/(82-87) Respiratory Rate Resp: 17 Resp: [16-22] SpO2 SpO2: 97 % SpO2: [97 %-98 %] Art BP BP (Arterial Line): -- Functional and Cognitive Status: Patient mobilizing with walker, cognitively intact at baseline mental status at time of discharge. Important Studies and Lab Data: Labs: Last 3 wbc, hgb, hct plt Recent Labs 01/17/17 0437 01/16/17 0342 12/23/16 1100 WBC 11.1* 12.2* 5.2 HGB 10.6* 11.9* 13.9 HCT 31.0* 33.7* 40.6 PLATELET 174 172 199 Last 3 Lytes Recent Labs 01/17/17 0437 01/16/17 0342 12/23/16 1100 NA 144 138 142 K 4.7 4.4 4.5 CL 107 103 104 CO2 25 22 24 BUN 33* 26* 21* CREATININE 1.74* 1.66* 1.52* Studies: Xr Pelvis (generic) Result Date: 01/15/2017 EXAMINATION: XR PELVIS (GENERIC) CLINICAL HISTORY: s/p left JOHN TECHNIQUE: Frontal pelvis COMPARISON: July 26, 2016 FINDINGS: LEFT total hip arthroplasty. Hardware appears intact. No periprosthetic fracture seen. No acute osseous injury appreciated. Fragmented course densities project over the LEFT hip; correlate with history and examination. No immediate complication seen. Transfusions: No Discharge Conditions/Prognosis: Stable, awake, and alert. Mobilizing as noted above, pain controlled on oral medications. Discharge to: Rehab Patient will be discharged to: [facility] [address] [place] [address] Updated Allergies/ADRs: No Known Allergies Immunizations Given this Hospitalization: There is no immunization history on file for this patient. Discharge Medications: Your Medications New Medications Dose Details aspirin 81 mg Tbec Take 1 tablet by mouth 2 times daily for 28 days. Take with food. 81 mg Quantity: 56 tablet Refills: 0 bisacodyl 10 mg Supp Commonly known as: DULCOLAX Place 1 suppository rectally daily as needed (constipation). 10 mg Refills: 0 gabapentin 300 mg Cap Commonly known as: NEURONTIN Take 1 capsule by mouth nightly for 26 days. 300 mg Quantity: 26 capsule Refills: 0 multivitamin Vuyp-Xq-WG-Min 27-0.4 mg Tab Commonly known as: THERAPEUTIC-M Take 1 tablet by mouth daily. 1 tablet Refills: 0 oxyCODONE 5 mg Tab Commonly known as: ROXICODONE Take 1 tablet by mouth every 4 hours as needed for Pain. Take 1 tablet (5mg) po Q4 hours prn MILD pain -OR- take 2 tablets (10mg) po Q4 hours prn MODERATE pain -OR- take 3 tablets (15mg) po Q4 hours prn SEVERE pain 5 mg Quantity: 30 tablet Refills: 0 polyethylene glycol 17 gram Pwpk Commonly known as: MIRALAX Take 17 g by mouth 2 times daily as needed (bowel regimen/constipation). 17 g Refills: 0 senna-docusate 8.6-50 mg Tab Commonly known as: PERICOLACE Take 2 tablets by mouth 2 times daily. Bowel regimen while on narcotics. 2 tablet Refills: 0 Continued medications with new dosing Dose Details acetaminophen 500 mg Tab Commonly known as: TYLENOL Take 2 tablets by mouth every 8 hours. Around the clock until 01/25/17, and then as needed. DO NOT EXCEED 3000 mg tylenol in a 24 hour period. What changed: - when to take this - reasons to take this - additional instructions 1000 mg Refills: 0 Continued medications, unchanged Dose Details albuterol 90 mcg/actuation Hfaa Commonly known as: PROVENTIL HFA;VENTOLIN HFA;PROAIR Inhale 2 puffs into the lungs every 4 hours as needed for Wheezing. Use with spacer 2 puff Refills: 0 terazosin 1 mg Cap Commonly known as: HYTRIN Take 1 mg by mouth nightly. 1 mg Refills: 0 Smoking Status at Discharge: History Smoking Status ??? Former Smoker ??? Quit date: 05/28/1970 Smokeless Tobacco ??? Never Used Instructions for Rehab Providers or PCP: 1. Anticoagulation: ASPIRIN Take 81mg twice a day for 30 days. Last day = 02/14/17. 2. Activity: Standard: Full weight bearing as tolerated using walker/crutches at all times for balance and protection. Patient should transition from sit to stand and stand to sit utilizing a broad based stance with feet and knees wider than hips. May wear MOUNIKA hose to knees bilaterally - remove at least once per day to inspect skin. 3. Diet: Regular but increase fluids and fiber while on narcotic pain meds. 4. Daren/Sutures: No external daren or sutures inplace. Sutures are internal and will be absorbed over time. 5. Dressing (Mepilex): Remove operative dressing 7 days from surgery (01/22/17). When it is removed can leave the incision open to air or cover it with a light dressing. If +++ drainage and it is before 01/22, remove this operative dressing and replace it with dry sterile gauze. Continue with daily dressing changes (and as needed) until the drainage stops, then remove the dressing and leave the incision open to air or lightly covered. 6. Shower: (Mepilex) yes but lightly pat the operative dressing dry if it becomes wet. DO NOT submerge the dressing/incision. 7. Aggressive bowel regimen - LBM = preoperatively. 8. Physical therapy/Ocupational therapy twice a day 7 days per week. Instructions Given to Patient at Discharge: There are no outpatient Patient Instructions on file for this admission. General Instructions Activity: 1. Your weight-bearing status is - weight bearing as tolerated of left leg. 2. Remember to use a walker or crutches at all times for balance and protection. Your physical therapist may progress you to using a cane when appropriate. 3. Remember your hip precautions: Standard: You should transition from sit to stand and stand to sit utilizing a broad based stance with feet and knees wider than hips. Anticoagulation: Aspirin - You are being discharged on enteric-coated Aspirin 81 mg by mouth twice a day for 30 days. After your dose on 02/14/17 stop the Aspirin, unless you are told otherwise by your Orthopedic surgeon. Take this medication with food or large amounts (240 mL) of water or milk to minimize GI irritation. Diet: Resume your usual diet but increase your intake of fluids and fiber while you are on narcoticpain meds to prevent constipation. Driving: None until you are cleared to do so by your Orthopedic surgeon. You should not drive whileyou are on narcotic pain meds as they can affect your judgment and reaction time. Call your surgeonwith any questions/concerns. Medications: 1. The pain medication you are on can cause constipation so increase your intake of fluids and fiber while you are on them. The stool softener, Pericolace, that has been prescribed can also be taken to facilitate a bowel movement. You can also take an clpa-gud-qsekaru medication, Miralax if needed to combat constipation. 2. If you need a renewal on your narcotic pain medication, you need to give the Orthopedic clinic enough time to process your request. This can take up to three days, so plan accordingly. 3. Continue acetaminophen (Tylenol) 1,000mg every 8 hours around the clock until 01/25/17 (for ten days after your surgery). This can be effective in controlling pain along with your other medications.After that you can take Tylenol as needed per package insert. Do not take more than 3,000mg of acetaminophen in a 24 hour period. 4. You have been discharged on a short acting narcotic, oxycodone. You will be on this medication for a limited period of time only. Taper off this medication as your pain improves. 5. You are being discharged on gabapentin (Neurontin), a non-narcotic medication that will help with your pain at night and allow you to sleep better. Take this at night for the next 4 weeks. Shower (internal sutures): 1. You can shower but remember your activity limitations and always have a chair available for balance and protection. DO NOT submerge the dressing/incision. 2. (Mepilex) Do not let water run over the operative dressing. If it becomes wet lightly pat the dressing dry. DO NOT submerge the incision. When this operative dressing is removed you can let water gently run over the incision. Wound (Mepilex): 1. You do NOT have any external daren or sutures in place. Your sutures are internal and will be absorbed over time. 2. You have a Mepilex dressing in place. Do not lift the edge of the Mepilex dressing to inspect the incision, it will not re-adhere. Remove your operative dressing 7 days after your surgery (01/22/17). When it is removed you can leave the incision open to air or cover it with a light dressing. 3. If you have lots of drainage when you get home (and it is before 01/22/17), remove the operative dressing and replace it with dry sterile gauze. Continue with daily dressing changes (and as needed) until the drainage stops, then remove the dressing and leave the incision open to air or lightly covered. Misc: Remember that ICE and elevation are very important after surgery to help decrease swelling and control pain. Use ICE for 20-30 minutes at a time and keep your leg elevated as much as possible. FOLLOW-UP APPOINTMENTS: 1. You will have follow-up appointments at [facility] as indicated below in Future Appointment and Orders. 2. You will need to have x-rays prior to your follow-up appointment on 02/13/17. Please come to Radiology, desk 3T, 1 hour BEFORE that appointment for these x-rays. Future Appointments Date Time Provider Department Center 02/13/2017 10:00 AM [facility] DX ROOM 1 [facility] [place] [facility] 02/13/2017 11:00 AM Pineda Montague MD [facility] [place] [facility] 02/13/2017 11:30 AM ORTHO HEPATOLOGIST [facility] Ortho [place] [facility] If you have questions or concerns: Friday through Friday, 8 AM - 5 PM, please call Pineda Reeves MD's office at . If it is after 5 PM, the weekend, or holidays, please call and ask to speak with theOrthopedic resident on-call. Future Appointments and Orders Future Appointments Provider Department Dept Phone 02/13/2017 11:00 AM Pineda Montague MD Orthopaedics [phone] 02/13/2017 11:30 AM ORTHO HEPATOLOGIST Orthopaedics [phone] Primary Care Provider: Duke Ramos MD [phone] Discharge References/Attachments None documented in this encounter Discharge Instructions * Discharge Instructions* Holly Alejandra PA - 01/17/2017 12:27 PM EDT Activity: 1. Your weight-bearing status is - weight bearing as tolerated of left leg. 2. Remember to use a walker or crutches at all times for balance and protection. Your physical therapist may progress you to using a cane when appropriate. 3. Remember your hip precautions: Standard: You should transition from sit to stand and stand to sit utilizing a broad based stance with feet and knees wider than hips. Anticoagulation: Aspirin - You are being discharged on enteric-coated Aspirin 81 mg by mouth twice a day for 30 days. After your dose on 02/14/17 stop the Aspirin, unless you are told otherwise by your Orthopedic surgeon. Take this medication with food or large amounts (240 mL) of water or milk to minimize GI irritation. Diet: Resume your usual diet but increase your intake of fluids and fiber while you are on narcoticpain meds to prevent constipation. Driving: None until you are cleared to do so by your Orthopedic surgeon. You should not drive whileyou are on narcotic pain meds as they can affect your judgment and reaction time. Call your surgeonwith any questions/concerns. Medications: 1. The pain medication you are on can cause constipation so increase your intake of fluids and fiber while you are on them. The stool softener, Pericolace, that has been prescribed can also be taken to facilitate a bowel movement. You can also take an pway-knn-psckofq medication, Miralax if needed to combat constipation. 2. If you need a renewal on your narcotic pain medication, you need to give the Orthopedic clinic enough time to process your request. This can take up to three days, so plan accordingly. 3. Continue acetaminophen (Tylenol) 1,000mg every 8 hours around the clock until 01/25/17 (for ten days after your surgery). This can be effective in controlling pain along with your other medications.After that you can take Tylenol as needed per package insert. Do not take more than 3,000mg of acetaminophen in a 24 hour period. 4. You have been discharged on a short acting narcotic, oxycodone. You will be on this medication for a limited period of time only. Taper off this medication as your pain improves. 5. You are being discharged on gabapentin (Neurontin), a non-narcotic medication that will help with your pain at night and allow you to sleep better. Take this at night for the next 4 weeks. Shower (internal sutures): 1. You can shower but remember your activity limitations and always have a chair available for balance and protection. DO NOT submerge the dressing/incision. 2. (Mepilex) Do not let water run over the operative dressing. If it becomes wet lightly pat the dressing dry. DO NOT submerge the incision. When this operative dressing is removed you can let water gently run over the incision. Wound (Mepilex): 1. You do NOT have any external daren or sutures in place. Your sutures are internal and will be absorbed over time. 2. You have a Mepilex dressing in place. Do not lift the edge of the Mepilex dressing to inspect the incision, it will not re-adhere. Remove your operative dressing 7 days after your surgery (01/22/17). When it is removed you can leave the incision open to air or cover it with a light dressing. 3. If you have lots of drainage when you get home (and it is before 01/22/17), remove the operative dressing and replace it with dry sterile gauze. Continue with daily dressing changes (and as needed) until the drainage stops, then remove the dressing and leave the incision open to air or lightly covered. Misc: Remember that ICE and elevation are very important after surgery to help decrease swelling and control pain. Use ICE for 20-30 minutes at a time and keep your leg elevated as much as possible. FOLLOW-UP APPOINTMENTS: 1. You will have follow-up appointments at [facility] as indicated below in Future Appointment and Orders. 2. You will need to have x-rays prior to your follow-up appointment on 02/13/17. Please come to Radiology, desk 3T, 1 hour BEFORE that appointment for these x-rays. Future Appointments Date Time Provider Department Center 02/13/2017 10:00 AM [facility] DX ROOM 1 [facility] [place] [facility] 02/13/2017 11:00 AM Pineda Montague MD [facility] Ortho 3[facility] [place] [facility] 02/13/2017 11:30 AM ORTHO HEPATOLOGIST [facility] Ortho [place] [facility] If you have questions or concerns: Friday through Friday, 8 AM - 5 PM, please call Pineda Reeves MD's office at . If it is after 5 PM, the weekend, or holidays, please call and ask to speak with theOrthopedic resident on-call. documented in this encounter Medications at Time [...] Take with food. 56 tablet 01/17/2017 02/14/2017 gabapentin (NEURONTIN) 300 mg Capsule Take 1 capsule by mouth nightly for 26 days. 26 capsule 01/17/2017 02/12/2017 bisacodyl (DULCOLAX) [address] 1 suppository rectally daily as needed (constipation). 01/17/2017 02/13/2017 multivitamin Bsaa-Ih-YU-Min (THERAPEUTIC-M) 27-0.4 mg Tablet Take 1 tablet by mouth daily. 01/17/2017 06/19/2017 oxyCODONE (ROXICODONE) 5 mg Tablet Take 1 tablet by mouth every 4 hours as needed for Pain. Take 1 tablet (5mg) po Q4 hours prn MILD pain -OR- take 2 tablets (10mg) po Q4 hours prn MODERATE pain -OR- take 3 tablets (15mg) po Q4 hours prn SEVERE pain 30 tablet 01/17/2017 02/13/2017 polyethylene glycol (MIRALAX) 17 gram Powder in Packet Take 17 g by mouth 2 times daily as needed (bowel regimen/constipation) . 01/17/2017 02/13/2017 senna-docusate (PERICOLACE) 8.6-50 mg Tablet Take 2 tablets by mouth 2 times daily. Bowel regimen while on narcotics. 01/17/2017 02/13/2017 terazosin (HYTRIN) 1 mg capsule Take 1 mg by mouth nightly. 01/14/2019 documented as of this encounter Progress Notes * Patti Boo RN - 01/17/2017 1:23 PM EDT Patient Name: Shree Ortez Jr. Patient Age: 66 y.o. Birthdate: 1950 Admit date: 01/15/2017 Attending Physician: Pineda Montague MD IV removed, site benign. Pts assessment remains unchanged from previous assessment. Discussed pain management with patient, pain tolerable. Pt denies need for pain meds prior to discharge. Pt has allbelongings. Pt received discharge summary. All questions answered. Discharge packet and prescriptions given to patient. Pt discharged to rehab facility via friend's private vehicle. [facility]. * Radha Perez RN - 01/17/2017 11:09 AM EDT Patient Name: Shree Ortez Jr. : 1950 [facility]. No MD to MD report necessary Please call Nursing Report to [phone] , ask for adviser sales. Info to accompany patient: Narcotic Prescriptions Copies of Medication Administration Records and IV sheets for past two weeks. Friend will transport pt via car around 12:30-1. [facility] [place] [address] Plan: Butcher Or [employer]goods Maker will be available to the patient and CRC for further assistance. Radha Perez RN Pager [phone] * Jody Patel MD - 01/17/2017 6:56 AM EDT ORTHOPAEDIC INPATIENT PROGRESS NOTE Patient Name: Shree Ortez Jr. Age: 66 y.o. Surgery: Left anterior JOHN Attending: Dr. Montague Date of surgery: 01/15/17 Subjective: Patient doing very well, states that he has almost no pain in his left hip. Has been upmobilizing slowly. Denies n/v/cp/sob. Objective: Temp: [36.7 ??C (98.1 ??F)-37.2 ??C (99 ??F)] Heart Rate: -- Resp: [16-22] BP: (125-146)/(73-85) SpO2: [96 %-98 %] Heart Rate from SPO2: [77 bpm-91 bpm] I/O last 3 completed shifts: In: 3804 [P.O.:2630; I.V.:1174] Out: 2450 [Urine:1900; Blood:550] I/O this shift: In: 1440 [P.O.:1440] Out: 1600 [Urine:1600] Gen: alert and oriented, no apparent distress. LLE: ?? Mepilex dressing c/d/i ?? Thigh soft, nontender ?? Sensation intact superficial peroneal, deep peroneal, tibial distributions ?? Motor intact ankle plantar flexion, ankle dorsiflexion, EHL ?? 2+ DP pulse, < 2 sec cap refill Labs: Lab Results Component Value Date WBC 11.1 (H) 01/17/2017 HGB 10.6 (L) 01/17/2017 HCT 31.0 (L) 01/17/2017 PLATELET 174 01/17/2017 INR 1.0 12/23/2016 NA 144 01/17/2017 K 4.7 01/17/2017 CL 107 01/17/2017 CO2 25 01/17/2017 BUN 33 (H) 01/17/2017 CREATININE 1.74 (H) 01/17/2017 X-rays: Assessment: 66M now POD #2 s/p left anterior JOHN, doing well post-op. Awaiting rehab bed availability. Plan: ?? Issues: As above ?? Activity: Mobilize with PT, weight bear as tolerated ?? Dressings: Mepilex x 7 days ?? Antibiotics: x 24h ?? Anticoagulation: ASA 81 mg BID ?? Pain control: Comfortable on PO pain meds ?? Discharge planning: will require rehab ?? F/u as scheduled below Future Appointments Date Time Provider Department Center 02/13/2017 10:00 AM [facility]OM 1 [facility] 02/13/2017 11:00 AM Pineda Montague MD [facility] [place] [facility] 02/13/2017 11:30 AM ORTHO HEPATOLOGIST [facility] [place] [facility] * Montse Curran RN - 01/16/2017 11:47 AM EDT Office of Care Management Initial Assessment ?? Source of Information: Shree Ortez Introduced self/reviewed role; services accepted. ?? Reason for Hospitalization: Primary OA of left hip. Left JOHN on 01/15/17. ?? Past Medical History Past Medical History: Diagnosis Date ??? Cancer of kidney ? Left ??? HTN (hypertension) ? Hospitalizations Within the Past 30 Days: no ?? Anticipated Length Of Stay (If known): TBD ?? Current Decision-Making Capacity: self ?? Advance Care Planning: yes ?? Current Coping/Education/Information Needs: He appears to understand the hospital course and discharge plans. ?? Current Functional Ability: OOB in chair receiving IVF, alert and oriented, pleasant ?? Functional Status Prior to Admission: He ambulates independently without an assistive device. He does use a walking stick when walking on uneven ground. He is able to do his ADL without any assistance. He drives. 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 ?? Home Environment: He lives in a 2 level workshop. His bedroom is on the main level. There are 2 stairs in without a railing. He does not have a bathroom. He composts his urine and feces outside. He has a watertank he uses to wash and bathe. ?? Social & Family Supports/Community Resources: He has a friend that comes to town that checks inon him. He could ask his brothers but he prefers not too. ?? Behavioral Health History: None ?? Substance Use/Abuse: None ?? Other Pertinent/Service Specific Information: has ? Health/Prescription Coverage: Primary Insurance: [employer]eter Diamond Secondary Insurance: None Prescription Coverage: [employer] [place] Preferred Pharmacy: [facility] [id number] Other: None ?? Primary Care Provider: Duke Ramos MD [phone] ?? Patient/Caregiver Goals of Treatment: He wants to be able to do woodworking. ?? Potential Needs for Transition of Care: Rehab/SNF: patient has spoken with ( Luciana) @ [facility] and R facility in [place] re his [employer] insurance and they have told him they accept and will likely be able to offer bed when medicallyready for discharge ? Home Health: No ME: 2 FWW. Dialysis: No Community Resources: None Transportation: Friend- Alfredo Rodríguez MEG. Other: None ?? Anticipated Barriers to Discharge/Special Considerations: None ?? Plan: discussed discharge plan anticipate rehab stay Will ask RS to confirm with [facility] A member of the Care Management team will continue to monitor progress, follow for continuity of care and assist with transition of care planning. ?? * Jody Patel MD - 01/16/2017 6:43 AM EDT ORTHOPAEDIC INPATIENT PROGRESS NOTE Patient Name: Shree Ortez Jr. Age: 66 y.o. Surgery: Left anterior JOHN Attending: Dr. Montague Date of surgery: 01/15/17 Subjective: Patient doing well this morning, reports no pain in his hip. Has been tolerating PO intake without issue. Denies n/v/cp/sob. Objective: Temp: [36.2 ??C (97.2 ??F)-37.1 ??C (98.8 ??F)] Heart Rate: [63-83] Resp: [11-18] BP: (112-158)/(65-100) SpO2: [94 %-99 %] Heart Rate from SPO2: [66 bpm-86 bpm] I/O last 3 completed shifts: In: 1534 [P.O.:360; I.V.:1174] Out: 550 [Blood:550] I/O this shift: In: - Out: 300 [Urine:300] Gen: alert and oriented, no apparent distress. LLE: ?? Mepilex dressing c/d/i ?? Thigh soft, nontender ?? Sensation intact superficial peroneal, deep peroneal, tibial distributions ?? Motor intact ankle plantar flexion, ankle dorsiflexion, EHL ?? 2+ DP pulse, < 2 sec cap refill Labs: Lab Results Component Value Date WBC 12.2 (H) 01/16/2017 HGB 11.9 (L) 01/16/2017 HCT 33.7 (L) 01/16/2017 PLATELET 172 01/16/2017 INR 1.0 12/23/2016 NA 138 01/16/2017 K 4.4 01/16/2017 CL 103 01/16/2017 CO2 22 01/16/2017 BUN 26 (H) 01/16/2017 CREATININE 1.66 (H) 01/16/2017 X-rays: Assessment: 66M now POD #1 s/p left anterior JOHN, doing well post-op. Patient will require rehab atdischarge (please see note by Oly Alonso). Plan: ?? Issues: As above ?? Activity: Mobilize with PT, weight bear as tolerated ?? Dressings: Mepilex x 7 days ?? Antibiotics: x 24h ?? Anticoagulation: ASA 81 mg BID ?? Pain control: Comfortable on PO pain meds ?? Discharge planning: will require rehab ?? F/u as scheduled below Future Appointments Date Time Provider Department Center 02/13/2017 10:00 AM [facility] DX ROOM 1 Xray [facility] 02/13/2017 11:00 AM Pineda Montague MD [facility] 02/13/2017 11:30 AM ORTHO HEPATOLOGIST [facility] Ortho [facility] Associated attestation - Pineda Montague MD - 01/16/2017 5:47 PM EDT Patient seen and examined on rounds. Agree with resident note. Pineda Montague M.D. [place] Department of Orthopaedics * Gricel Jaramillo MD - 01/15/2017 5:15 PM EDT Orthopaedic Surgery Post-Operative Progress Note Surgery: Left anterior JOHN Patient Active Problem List Diagnosis Code ??? 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 Dysphagia R13.10 ??? Osteoarthritis of LEFT hip M16.9 ??? 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 s/p LEFT anterior JOHN on 01/15/[address] Montague Z96.649 Patient seen: 320 Subjective/Events: Patient accompanied by army friend. Talking about good breweries in the area. Pain controlled. Denies chest pain, shortness of breath, dizziness, headache, abdominal pain, nausea, vomiting. Objective: Vitals: Temp: [36.2 ??C (97.2 ??F)-36.5 ??C (97.7 ??F)] Heart Rate: [63-83] Resp: [11-17] BP: (128-158)/(79-100) SpO2: [94 %-99 %] Heart Rate from SPO2: [66 bpm-82 bpm] I/O this shift: In: 900 [I.V.:900] Out: 550 [Blood:550] Exam: General: NAD, awake/alert, responds to questions Resp: Breathing comfortably Abd: Soft, nontender, nondistended. LLE: Anterior hip mepilex dressing c/d/i Sensory intact to light touch in SP, DP, sural, tibial Motor intact to FHL/EHL/TA, knee extension/flexion, hip extension/flexion Brisk capillary refill distally, foot warm/well-perfused No results for input(s): WBC, HGB, HCT, PLATELET, NA, K, CL, CO2, BUN, CREATININE in the last 72 hours. Radiology: XR pelvis: - s/p L JOHN, no fracture or dislocation. Radiolucent material around L hip, possibly some sort of wrap. A/P: 66 y.o. year old male POD#0 s/p L anterior JOHN - WBAT - monocryl - ASA 81 mg BID - No naproxen - OT / OT * Aydee Smith RN - 01/15/2017 3:40 PM EDT Pt arrived to floor from PACU after left JOHN. Pt alert and oriented x4. Pt reports pain 3/10. Pt denies any chest pain, shortness of breath, dizziness or nausea. Refer to doc flow sheets for full assessment. Friend in room at bedside. Patient oriented to room with call chiu within reach. Masimo on.Will continue to monitor. documented in this encounter H&P Notes * Pineda Montague MD - 01/15/2017 6:13 AM EDT The patient's history and physical exam have been reviewed and completed. There has been no interval change from that of the pre-operative history and physical exam done within the last 30 days. documented in this encounter Miscellaneous Notes * Plan of Care - Inze Caldwell RN - 01/17/2017 6:18 AM EDT Problem: Patient Care Overview Goal: Plan of Care Review 01/17/17 0616 Plan of Care Review Progress progress toward functional goals as expected Coping/Psychosocial Plan Of Care Reviewed With patient OUTCOME EVALUATION NOTE: OUTCOME SUMMARY: Pt slept between care overnight. Denies N/V, SOB, CP. Pt educated on personal risk to fall; medications; plan of care for the shift; and pain control options. Pt reports adequate pain control with current pain regimen (see MAR for medication interventions). Dsg to L hip c/d/i. Last recorded vital signs: Last value Temperature Temp: 37 ??C (98.6 ??F) Heart Rate Heart Rate: 80 Blood Pressure BP: 144/85 Respiratory Rate Resp: 18 SpO2 SpO2: 97 % PLAN MOVING FORWARD: D/c to rehab Pain control INDIVIDUALIZED FALL PREVENTION INTERVENTIONS: Patient-specific fall risk factors per assessment: [current deficits]: Hx of falls; recent surgery;medications; unsteady gait; high Wyman Fall Risk score Fall prevention interventions: Pt educated on personal risks to fall; call chiu w/in reach at all times; bed/chair alarm. Assistance [level of assistance required for transfers and ambulation]: Stand-by assist w/ walker to ambulate. Repositions self independently. Supervision [direct monitoring required during toileting and ADLs]: Pt requires minimal assist with ADLs. Surveillance [continuous indirect monitoring]: Vivo; nurse knowledge exchange; purposeful rounding CPG GOAL OUTCOME EVALUATION: Goal: Individualization & Mutuality 01/15/17 1828 01/17/17 0616 Mutuality/Individual Preferences What Anxieties, Fears or Concerns Do You Have About Your Health or Care? none -- What Questions Do You Have About Your Health or Care? none -- What Information Would Help Us Give You More Personalized Care? nothing -- Individualization Patient Specific Goals -- Mobilize; pain control; d/c Goal: Fall Prevention-Safe Patient Handling 01/15/17182601/16/17223401/17/17514 Musculoskeletal Interventions Muscle Strengthening activity/mobility promoted;mobility in bed promoted -- -- Wyman Fall Risk History of Falling -- 25 -- Secondary Diagnosis -- 0 -- Ambulatory Aids -- 15 -- Intravenous Therapy/Heparin/Saline Lock -- 20 -- Gait/Transferring -- 10 -- Mental Status -- 0 -- Score -- 70 -- OTHER Wyman Fall Risk -- High -- Restraint Interventions Safety Promotion/Fall Prevention -- -- activity supervised;fall prevention program maintained;nonskid shoes/slippers when out of bed;safety round/check completed Positioning Body Position -- -- supine, head elevated Goal: Infection Control 01/16/17223401/17/17514 Safety Interventions Isolation Precautions -- standard precautions maintained Infection Prevention -- environmental surveillance performed;personal protective equipment utilized;rest/sleep promoted;single patient room provided Coping Strategies Supportive Measures positive reinforcement provided -- * Plan of Care - Aydee Smith RN - 01/16/2017 3:31 PM EDT Problem: Pressure Injury Risk (Dilshad Scale) (Adult,Obstetrics,Pediatric) Goal: Identify Related Risk Factors and Signs and Symptoms Related risk factors and signs and symptoms are identified upon initiation of Human Response Clinical Practice Guideline (CPG) Outcome: Ongoing (Interventions Implemented as Appropriate) OUTCOME EVALUATION NOTE: OUTCOME SUMMARY: Patient resting comfortably throughout the day. Pain well controlled with oxycodone and tylenol. Dressing to left hip clean, dry, intact. CSMs intact. Worked with PT today, moving well. Up with 1 assist and a walker. Tolerating regular diet well. Voiding adequately. Will continue to monitor. PLAN MOVING FORWARD: Pain control, ambulate INDIVIDUALIZED FALL PREVENTION INTERVENTIONS: Patient-specific fall risk factors per assessment: [current deficits]: Pain, medications, recent surgery Assistance [level of assistance required for transfers and ambulation]: 1 assist with walker Supervision [direct monitoring required during toileting and ADLs]: Hands on with ADLs Surveillance [continuous indirect monitoring]: mariaa Herrera Patient-specific fall prevention interventions for sensory deficits provided, if applicable: n/a CPG GOAL OUTCOME EVALUATION: * Plan of Care - Ivory Cedeno OT - 01/16/2017 3:21 PM EDT Problem: Patient Care Overview Goal: Plan of Care Review Outcome: Ongoing (Interventions Implemented as Appropriate) 01/16/17 1515 Plan of Care Review Progress progress toward functional goals as expected Coping/Psychosocial Plan Of Care Reviewed With patient Occupational Therapy Evaluation Pertinent History of Current Problem: 66 y/o male s/p L anterior JOHN Precautions/Restrictions: hip, fall Precautions Comments: (standard precautions; WBAT LLE ) Social support / Home setup / PLOF: Pt was ambulating independently without an assistive device prior to surgery. He has been able to do ADL's and IADL's independently up until this point. 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 He lives in a 2 level workshop. His bedroom is on the main level. There are 2 stairs in without a railing. He does not have a bathroom. He composts his urine and feces outside. He has a watertank he uses to wash and bathe. Assessment: Pt has been seen by OT for evaluation, please refer to associated flowsheet data for details. Pt presents with impaired ability to perform daily activities and functional mobility secondary to recent L JOHN and subsequent pain. He currently requires use of FWW and cgA for safe ambulationand functional transfers. He also requires assist and AE for LB dressing. Due to home set up andrequirements upon returning home it is anticipated that pt would benefit from brief rehabilitation stay prior to returning home. It is anticipated that pt will progress well as he is highly motivatedand very independent. Pt would benefit from ongoing OT interventions to increase independence with self care and progress functional mobility while hospitalized. Staff Recommendations: --> Encourage participation and independence in self-care --> OOB to chair for meals as appropriate --> Walk three times daily as appropriate --> Promote well-being through leisure and relaxation activities --> Encourage sleep / wake cycle --> Use bathroom vs. using urinal/commode/bed velez as able --> Provide frequent reminders regarding precautions / recommendations Therapy Frequency: 2-3 times/wk Anticipated Discharge Disposition: inpatient rehabilitation facility Pager: [phone] Patti Cedeno OT Occupational Therapy Rehabilitation Department Problem: Acute Rehab Services Goal & Intervention Plan Goal: Grooming Goal Stand Alone Therapy Goal Outcome: Ongoing (Interventions Implemented as Appropriate) 01/16/17 1515 Grooming Goal Grooming Goal, Date Established 01/16/17 Grooming Goal, Time to Achieve 1 wk Grooming Goal, Activity Type Pt will complete basic grooming tasks standing at sink independently with fww Grooming Goal, Outcome goal ongoing Goal: LB Dressing Goal Stand Alone Therapy Goal Outcome: Ongoing (Interventions Implemented as Appropriate) 01/16/17 1515 LB Dressing Goal LB Dressing Goal, Date Established 01/16/17 LB Dressing Goal, Time to Achieve 1 wk LB Dressing Goal, Activity Type Pt will don/doff socks, underwear, and pants independently using LHAE and compensatory strategies LB Dressing Goal, Outcome goal ongoing Goal: Occupational Therapy Goal Stand Alone Therapy Goal Outcome: Ongoing (Interventions Implemented as Appropriate) 01/16/17 1515 Occupational Therapy Goal OT Goal, Date Established 01/16/17 OT Goal, Time to Achieve 1 wk OT Goal, Activity Type Pt will obtain snack/drink out of kitchen using fww and walker bag with supervision OT Goal, Outcome goal ongoing Goal: Toileting Goal Stand Alone Therapy Goal Outcome: Ongoing (Interventions Implemented as Appropriate) 01/16/17 1515 Toileting Goal Toileting Goal, Date Established 01/16/17 Toileting Goal, Time to Achieve 1 wk Toileting Goal, Activity Type Pt will complete toilet transfer & bowel/bladder hygiene independently using FWW Toileting Goal, Outcome goal ongoing * Plan of Care - Urban Wright, PT - 01/16/2017 9:30 AM EDT Problem: Patient Care Overview Goal: Plan of Care Review Outcome: Ongoing (Interventions Implemented as Appropriate) 01/16/17 1119 Coping/Psychosocial Plan Of Care Reviewed With patient Physical Therapy Assessment Pt seen for skilled PT Evaluation s/p JOHN. Pt presents with the following impairments and limitations: increased pain, decreased strength and ROM in LE's, impaired balance reactions and decreased functional mobility. Pt is expected to make good progress during rehab based on prior level of functionand motivation level. Patient would benefit from continued therapy services upon discharge from hospital as he was previously independent without a device and living alone. Please see the Rehab Evaluation Summaries report for objective data and specifics of today???s session. Social History: Patient lives in [place], [place] in a 2 level home with 2 VÍCTOR and no railings. Patientlives without running water and composts outside. He does have electricity. DME includes a cane. Pertinent History of Current Problem: Pt is s/p L ant JOHN by Dr. Montague on 01/15/17 Staff Mobility Recommendations: 1 assist with RW Precautions/Restrictions: hip, fall Precautions Comments: standard precautions; WBAT LLE Weight-Bearing Status Extremity Weight Bearing Status: left lower extremity Left Lower Extremity (Weight Bearing Status): weight-bearing as tolerated Anticipated Physical Therapy Frequency: 3-5 times/wk Anticipated Equipment Needs at Discharge: (TBD pending discharge ) Anticipated Discharge Disposition: inpatient rehabilitation facility Pager: [phone] Urban Wright, PT 01/16/2017 Inpatient Physical Therapy Problem: Acute Rehab Services Goal & Intervention Plan Goal: Bed Mobility Goal Stand Alone Therapy Goal Outcome: Ongoing (Interventions Implemented as Appropriate) 01/16/17 1119 Bed Mobility Goal Bed Mobility Goal, Date Established 01/16/17 Bed Mobility Goal, Time to Achieve 2 wks Bed Mobility Goal, Activity Type all bed mobility activities Bed Mobility Goal, [place] Level independent Bed Mobility Goal, Assistive Device leg perpetual inventory clerk Goal: Gait Training Goal Stand Alone Therapy Goal Outcome: Ongoing (Interventions Implemented as Appropriate) 01/16/17 1119 Gait Training Goal Gait Training Goal, Date Established 01/16/17 Gait Training Goal, Time to Achieve 2 wks Gait Training Goal, [place] Level conditional independence Gait Training Goal, Assist Device walker, rolling Gait Training Goal, Distance to Achieve 150 Gait Training Goal, Additional Goal Pt will ascend/descend 2 steps w/ axillary crutches independently Goal: Physical Therapy Goal Stand Alone Therapy Goal Outcome: Ongoing (Interventions Implemented as Appropriate) 01/16/17 1119 Physical Therapy Goal PT Goal, Date Established 01/16/17 PT Goal, Time to Achieve 2 wks PT Goal, Activity Type Pt will demonstrate no LOB during standing static/dynamic activities with RWsupport PT Goal, [place] Level conditional independence Goal: Strength Goal Stand Alone Therapy Goal Outcome: Ongoing (Interventions Implemented as Appropriate) 01/16/17 1119 Strength Goal Strength Goal, Date Established 01/16/17 Strength Goal, Time to Achieve 2 wks Strength Goal, Additional Goal Pt demonstrates independence with HEP handout 2x/daily Goal: Goal Transfer Training Stand Alone Therapy Goal Outcome: Ongoing (Interventions Implemented as Appropriate) 01/16/17 1119 Goal Transfer Training Transfer Training Goal, Date Established 01/16/17 Transfer Training Goal, Time to Achieve 2 wks Transfer Training Goal, Activity Type all transfers Transfer Train Goal, [place] Level conditional independence Transfer Training Goal, Assist Device walker, rolling * Plan of Care - Nina Hudson RN - 01/16/2017 2:11 AM EDT Problem: Pressure Injury Risk (Dilshad Scale) (Adult,Obstetrics,Pediatric) Goal: Identify Related Risk Factors and Signs and Symptoms Related risk factors and signs and symptoms are identified upon initiation of Human Response Clinical Practice Guideline (CPG) Outcome: Ongoing (Interventions Implemented as Appropriate) OUTCOME EVALUATION NOTE: OUTCOME SUMMARY: Pt A&Ox4. Slept in between care for most of night. Pain controlled w/ current pain regimen (seeMAR). Pt voiding, but still having elevated PVRs; will monitor. Denies numbness/tingling. +CSMT to LLE. Dressing to left hip c/d/i. OOB to bathroom 2x-assist w/ walker. VSS. Call chiu within reach. Will continue to monitor. PLAN MOVING FORWARD: -[x]Pain Control -[x]Mobilize INDIVIDUALIZED FALL PREVENTION: Fall Score: 60 Baseline mobility: independent Assistance: -1x-assist with walker Supervision: -[x]Hands-on for all transfers and ambulation -[]Eyes-on for all transfers and ambulation -[]Arms-Reach for all transfers and ambulation Surveillance: -]Bed Alarm/Chair Alarm -[x]Purposeful Rounding -[x]Team Care -[x]Bedside Nurse Knowledge Exchange CPG OUTCOME EVALUATION: Goal: Skin Integrity Patient will demonstrate the desired outcomes by discharge/transition of care. 04/26/17 1828 Pressure Injury Risk (Dilshad Scale) (Adult,Obstetrics,Pediatric) Skin Integrity making progress toward outcome Problem: Skin Integrity Impairment, Risk/Actual (Adult) Goal: Identify Related Risk Factors and Signs and Symptoms Related risk factors and signs and symptoms are identified upon initiation of Human Response Clinical Practice Guideline (CPG) 01/15/171827 Skin Integrity Impairment, Risk/Actual Skin Integrity Impairment, Risk/Actual: Related Risk Factors surgery/procedure Goal: Skin Integrity/Wound Healing Patient will demonstrate the desired outcomes by discharge/transition of care. 01/15/171827 Skin Integrity Impairment, Risk/Actual (Adult) Skin Integrity/Wound Healing making progress toward outcome Problem: Patient Care Overview Goal: Plan of Care Review 01/15/17182701/15/172031 Plan of Care Review Progress progress toward functional goals as expected -- Coping/Psychosocial Plan Of Care Reviewed With -- patient Goal: Individualization & Mutuality 01/15/171827 Mutuality/Individual Preferences What Anxieties, Fears or Concerns Do You Have About Your Health or Care? none What Questions Do You Have About Your Health or Care? none What Information Would Help Us Give You More Personalized Care? nothing Goal: Fall Prevention-Safe Patient Handling 01/15/17182601/15/172031 Musculoskeletal Interventions Muscle Strengthening activity/mobility promoted;mobility in bed promoted -- Wyman Fall Risk History of Falling -- 25 Secondary Diagnosis -- 0 Ambulatory Aids -- 15 Intravenous Therapy/Heparin/Saline Lock -- 20 Gait/Transferring -- 10 Mental Status -- 0 Score -- 70 OTHER Wyman Fall Risk -- High Restraint Interventions Safety Promotion/Fall Prevention -- activity supervised;fall prevention program maintained;nonskid shoes/slippers when out of bed Positioning Body Position -- independent Goal: Infection Control 01/15/172031 Safety Interventions Isolation Precautions standard precautions maintained Infection Prevention environmental surveillance performed;rest/sleep promoted Coping Strategies Supportive Measures active listening utilized;self-care encouraged Goal: Discharge Needs Assessment 01/15/171826 Discharge Needs Assessment Concerns To Be Addressed no discharge needs identified Readmission Within The Last 30 Days no previous admission in last 30 days Discharge Disposition still a patient Living Environment Transportation Available car;family or friend will provide Goal: Interdisciplinary Rounds/Family Conf 01/15/171826 Interdisciplinary Rounds/Family Conf Participants nursing;patient;physician * Plan of Care - Aydee Smith RN - 01/15/2017 6:30 PM EDT Problem: Pressure Injury Risk (Dilshad Scale) (Adult,Obstetrics,Pediatric) Goal: Identify Related Risk Factors and Signs and Symptoms Related risk factors and signs and symptoms are identified upon initiation of Human Response Clinical Practice Guideline (CPG) Outcome: Ongoing (Interventions Implemented as Appropriate) OUTCOME EVALUATION NOTE: OUTCOME SUMMARY: Patient resting comfortably sicne arriving from PACU. Pain well controlled with oxycodone, toradol and tylenol. Dressing to left hip clean, dry, intact. CSMs intact. Patient not OOB yet. IV fluids and antibiotics continued, site benign. Tolerating regular diet well. Due to void. Will continue to monitor. PLAN MOVING FORWARD: Pain control, ambulate INDIVIDUALIZED FALL PREVENTION INTERVENTIONS: Patient-specific fall risk factors per assessment: [current deficits]: Pain, medications, recent surgery, IV infusing Assistance [level of assistance required for transfers and ambulation]: Not OOB yet Supervision [direct monitoring required during toileting and ADLs]: Hands on with ADLs Surveillance [continuous indirect monitoring]: Purposeful rounding, tyraimo Patient-specific fall prevention interventions for sensory deficits provided, if applicable: n/a CPG GOAL OUTCOME EVALUATION: * Brief Op Note - Pineda Montague MD - 01/15/2017 10:17 AM EDT Brief Operative Note Patient Name: Shree Ortez Jr. : [id number] MR#: [id number] Date of surgery: 01/15/2017 ?? Preoperative diagnosis: Left hip osteoarthritis ?? Postoperative diagnosis: Left hip osteoarthritis ?? Procedure: Left total hip arthroplasty ?? Anesthesia: General ?? Surgeon: Pineda Montague MD ?? Manager Shift: Jody Camejo MD ?? Estimated blood loss: 550 cc ?? Fluids: 600 cc ?? Urine output: Due to Void ?? Drains: None ?? Complications: None ?? Implants: 1. 12 Corail coxa vara femoral stem 2. 54 mm [place] 100 Gription acetabular shell 3. 36 x 54 Neutral acetabular polyethylene liner 4. 36+1.5 mm ceramic femoral head ?? Findings: Significant femoral and acetabular osteoarthritic changes. Components were well positioned. No fractures appreciated. Stability testing reveled stable construct without impingement within physiologic range of motion. Infection Bundle used? No Attestation: Case Date: 01/15/2017 I was present and I participated during the entire procedure (does not need to include opening and closing). (Please see the Surgical Encounter Summary for any Implant and Specimen details pertinent to this patient.) * Initial Assessments - Navdeep Farah RN - 01/15/2017 8:47 AM EDT Office of Care Management Initial Assessment ?? Oly Alonso reviewed record and discussed patient with Care Team. ?? Source of Information: Shree Ortez Introduced self/reviewed role; services accepted. Informed patient that an inpatient career technical counselor will be working to expedite the discharge process and to direct questions to the assigned career technical counselor. ?? Reason for Hospitalization: Primary OA of left hip. Left JOHN on 01/15/17. ?? Past??Medical??History Past Medical History: Diagnosis Date ??? Cancer of kidney ? Left ??? HTN (hypertension) ? Hospitalizations Within the Past 30 Days: ?? Anticipated Length Of Stay (If known): ?? Current Decision-Making Capacity: He is capable of making his own medical decisions. ?? Advance Care Planning: He has an ADV DIR in his medical record. His designated agent is his brother, Armond Ortez. ?? Current Coping/Education/Information Needs: He appears to understand the hospital course and discharge plans. ?? Current Functional Ability: ?? Functional Status Prior to Admission: He ambulates independently without an assistive device. He does use a walking stick when walking on uneven ground. He is able to do his ADL without any assistance. He drives. 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 ?? Home Environment: He lives in a 2 level workshop. His bedroom is on the main level. There are 2 stairs in without a railing. He does not have a bathroom. He composts his urine and feces outside. He has a watertank he uses to wash and bathe. ?? Social & Family Supports/Community Resources: He has a friend that comes to town that checks inon him. He could ask his brothers but he prefers not too. ?? Behavioral Health History: None ?? Substance Use/Abuse: None ?? Other Pertinent/Service Specific Information: I discussed with the patient the potential avenues ofdischarge postoperatively. We discussed qualifications to go to a assisted facility. We discussed Medicare guidelines for admission into a assisted facilityas well as transportation, namely, ambulance and the Medicare guidelines associated with ambulance or wheelchair vans. We discussed the purpose and services provided by [facility]. I communicated that we will not know until after surgery what will be the best course of discharge for the patient based on medical necessity and that thisis why we plan for different courses of discharge. I informed the patient that they will be workingwith a career technical counselor after surgery to facilitate the discharge plan. I encouraged the patient to call me with any questions or concerns prior to the surgery as well as when they discharge home. ? Health/Prescription Coverage: Primary Insurance: [employer] Secondary Insurance: None Prescription Coverage: [facility] Preferred Pharmacy: [place] [address] Other: None ?? Primary Care Provider: Duke Ramos MD [phone] ?? Patient/Caregiver Goals of Treatment: He wants to be able to do woodworking. ?? Potential Needs for Transition of Care: Rehab/SNF: [facility] ?? Based on discussions with the multi-disciplinary healthcare team, the patient would benefit from - level of care at discharge. ? I have met with the patient/data entry representative to discuss discharge planning needs. I have provided the [facility], Office of Care Management letter from the Legal Coordinator pertaining to rehab referrals. I have also provided a letter describing our affiliations within the [facility] and educated them about their right to choose where referrals are placed. ?? I reviewed the different levels of rehab including SNF, swing, acute and LTAC with the patient/data entry representative. ?? The patient/data entry representative has been provided a list of facilities within their preferred geographic area. ?? I have requested that the patient/data entry representative provide at least three choices for referral. ?? The patient/data entry representative have requested referrals to: ?? 1. [facility] ?? 2. [facility] ?? 3. ?? Expected date of discharge: ?? Note routed to [employer] who will communicate referrals to facilities and provide any required information. ?? Home Health: No selection (He prefers to not have VNA come to his workshop/home) OP PT: [facility] [place] DME: 2 FWW. Dialysis: No Community Resources: None Transportation: We discussed that since we cannot determine the exact day or time of surgery, his transportation must be readily available at time of discharge. He will be transported by [facility]. Other: None ?? Anticipated Barriers to Discharge/Special Considerations: I have spoken with the admissions coordinators. Shree has also spoken with them as well. They are aware of his home situation. They would like referrals post-op and will check with Pieter Diamond about approval for a stay. ?? Plan: He prefers to go to SNF. ? A member of the Care Management team will continue to monitor progress, follow for continuity of care and assist with transition of care planning. ?? Oly Alonso Pager: [phone] Chart reviewed and had a message from Oly that pt would like referrals made to [facility] and [facility] at d/c. Pt is still in the OR but will be coming to [facility] post-op. I am unsure of how he will transport. * Op Note - Pineda Montague MD - 01/15/2017 7:41 AM EDT [facility] Operative Note Patient Name: Shree Ortez Jr. : [id number] MR#: [id number] Date of surgery: 01/15/2017 Preoperative diagnosis: Left hip osteoarthritis Postoperative diagnosis: Left hip osteoarthritis Procedure: Left total hip arthroplasty Anesthesia: General Surgeon: Pineda Montague MD Manager Shift: Jody Camejo MD Estimated blood loss: 550 cc Fluids: 600 cc Urine output: Due to Void Drains: None Complications: None Implants: 1. 12 Corail coxa vara femoral stem 2. 54 mm Deer 100 Gription acetabular shell 3. 36 x 54 Neutral acetabular polyethylene liner 4. 36+1.5 mm ceramic femoral head Findings: Significant femoral and acetabular osteoarthritic changes. Components were well positioned. No fractures appreciated. Stability testing reveled stable construct without impingement within physiologic range of motion. Indications for procedure: Patient is a 66-year-old male with left hip osteoarthritis. After exhausting conservative measures, the patient elected to proceed with total hip arthroplasty. The risks and benefits of this procedure were reviewed in depth and patient received medical clearance prior to p rocedure. Description of events: The patient was seen in the same day surgery area where informed consent was confirmed and the appropriate left lower extremity was marked with my initials. This was confirmed by the patient as the correct side. The patient was brought back to the operating room and placed on the operating room table in the supine position. A timeout was performed per policy identifying the correct side, patient identity, and procedure. Preoperative antibiotics were given prior to incision. A general anesthetic was provided by the anesthesia staff. The patient was then transitioned to the Nicole table. Well-padded peroneal post was placed and the patient was brought down to this post. The hip was prepped and draped in usual sterile fashion using ChloraPrep. Patient received TXA prior to incision. An approximately 10 cm incision was made starting 1-2 cm distal and 2 cm posterior to the ASIS extending approximately 30 degree posteriorly towards the greater trochanter. Dissection was carried down to the TFL fascia with hemostasis obtained using electrocautery. The fascia of the TFL was identified and deep knife was used to incise the fascia protecting the underlying muscle. 2 Allis clamps were then placed on the anterior leaf of this fascia and blunt finger dissection was used to dissect down into the interval between the rectus and TFL. Lateral aspect of the neck was identified and deeplayer of TFL fascia was bluntly dissected through using a finger and a blunt Ranjan was placed over t he superior lateral aspect of the neck. Inferior calcar area of the neck was identified and blunt Ranjan was placed. A Silas retractor was placed on the TFL laterally and vascular leash in the inferior portion of the incision was dissected free and cauterized. A Paz was then used to identify rectusmedially and retractor was placed underneath the rectus and rectus was elevated off the underlying capsule. Pericapsular fat was removed using Paz. An inverted T capsulotomy was then made using electrocautery extending from the medial aspect of the joint to the intertrochanteric line extending both proximally and distally. #2 Ethibond stay stitches were placed in both corners of our capsulotomy and Homans removed to an intra-articular position. Inferior calcar was removed of soft tissue down to the level of the lesser trochanter. Careful attention was to not include the abductors with their lateral retractor. This provided access to the neck of the femur for osteotomy. Preoperative template and was assessed for level of neck cut from above the lesser trochanter osteotomy was performed starting on the calcar side extending towards the base of the neck. At this point2 turns of traction and external rotation to 50 degrees was performed. Power corkscrew was then used to remove the remaining femoral head from the acetabulum. Femoral head was then measured and initial acetabular reamer was identified. Homans were placed both anterior and posterior to the labrum to provide access to the acetabulum. Long handled knife was used to remove the labrum. Any overhanging osteophytes were removed using a rongeur. Bovie was used to define the true floor and the condyloid fossa. Inferior capsule was released slightly. Reaming was undertaken under C-arm fluoroscopy starting 3 mm below templated size. Initially medialization was undertaken and then the acetabulum was reamed in position aiming for 40 degrees of abduction and approximately 15-20 degrees of anteversion. After reaming was found to be acceptable reamer was removed and excellent bony bleeding was encountered. Acetabular shell of 54 millimeters was malleted into the appropriate anteversion and horizontal position. This had excellent scratch fit. Polyethylene insert was positioned into place and malleted into the locking mechanism. Our attention then was turned to femoral preparation, traction was removed the femur was externallyrotated to 90 degrees and brought partly into extension. While performing this maneuver the femur was pulled in a lateral direction. A femoral elevator was placed along the posterior inferior aspect of the neck and a Stephens type retractor was placed over the greater trochanter and a posterior position. Remaining soft tissue at the lateral base of the neck was removed to fully expose the lateral aspect of the neck. Additional release was performed with electrocautery extending posterior laterally to the ???nipple ???with careful attention not to release the short external rotators. Then additional external rotation to greater than 100 degrees was performed the leg was extended all the way down to the floor and adduction were provided. This provided excellent access to the proximal femur for broaching. Rongeur was used to remove any lateral neck that was residual. T-handle was used to assure entry into the femoral canal after box osteotome was used to lateralize approach. Starter broach was used toopen the proximal aspect of the femur with careful attention to keep hand towards floor and body ofpatient. Next, size #8 broach was used to start femoral broaching. Sequential broaches were used until a final size 12 broach had excellent rotational stability. Calcar planing was undertaken and trial femoral neck and head was placed using size 36 +1.5 head and coxa vara neck. The hip was reduced by bringing the leg to a neutral position followed by traction and internal rotation with pressure placed on the femoral head. The hip reduced without difficulty. C-arm fluoroscopy was used to assess leg lengths, femoral implant position and size. Stability testing was undertaken with external rotation to 90 degrees and extension of the hip. Stability was found to be excellentand leg lengths and femoral size appropriate. No posterior impingement was encountered, the hip wasthen subsequently dislocated with traction and external rotation and brought to an externally rotated, extended, and adductor position. The femoral broach was removed canal was irrigated and final implant was placed. The hip was re-reduced and found to be stable. Final x-rays were performed and saved. The wound was copiously irrigated with pulsed lavage. Closure included multiple layers. TFL fascia was then closed with a #1 Vicryl in a running locked fashion. Subcutaneous tissues re-approximated with a combination of 0 and 2-0 Vicryl sutures in a buried fashion. 3-0 Monocryl suture was used in asubcutaneous buried fashion for skin closure followed by Dermabond application. A Mepilex border AGdressing was applied. Plan: Patient will be admitted and co-managed with the medical staff. Patient will be weightbearingas tolerated on the surgical extremity without precaution. Patient will use ASA 81mg BID for 30 days for DVT propholaxis. Dressing will remain in place for 7 days. No suture removal is necessary. Patient will likely be discharged to home with VNA services or rehabilitation stay. Follow-up will be in 4 weeks for wound check and xrays at that visit. Infection Bundle used? N/A Attestation: Case Date: 01/15/2017 I was present and I participated during the entire procedure (does not need to include opening and closing). Pineda Montague MD 01/15/2017 documented in this encounter Plan of Treatment Scheduled Procedures Name Priority Associated Diagnoses Date/Ti me EGD, UPPER GI ENDOSCOPY (WRV U 2.09) Esophageal dysphagia Encounter for colorectal cancer screening COLONOSCOPY, DIAGNOSTIC (WRV U 3.26) Esophageal dysphagia Encounter for colorectal cancer screening documented as of this encounter Procedures Procedure Name Priority Date/Time Associated Diagnosis Comments IMPLANTABLE DEVICES SCAN 01/18/2017 12:00 AM EDT STUDENT ACTIVITIES DIRECTOR SCAN 01/18/2017 12:00 AM EDT HEMOGRAM Routine 01/17/2017 4:37 AM EDT DIFFERENTIAL, AUTOMATED Routine 01/17/2017 4:37 AM EDT CBC (WITH DIFF) Routine 01/17/2017 4:37 AM EDT BASIC METABOLIC PANEL Routine 01/17/2017 4:37 AM EDT HEMOGRAM Routine 01/16/2017 3:42 AM EDT DIFFERENTIAL, AUTOMATED Routine 01/16/2017 3:42 AM EDT CBC (WITH DIFF) Routine 01/16/2017 3:42 AM EDT BASIC METABOLIC PANEL Routine 01/16/2017 3:42 AM EDT XR PELVIS Routine 01/15/2017 12:05 PM EDT XR FLUORO NO RAD <1HR - OR USE Routine 01/15/2017 10:19 AM EDT HIP INTRAOP RADIOLOGIC EXAMINATION, UNILATERAL, W PELVIS; 4+ VIEWS (WRVU 0.27) 01/15/2017 7:39 AM EDT Primary osteoarthritis of left hip MODIFIER PINNACLE GRIPTION ACETABULUM DEPUY 01/15/2017 7:39 AM EDT Primary osteoarthritis of left hip MODIFIER CORAIL FEMORAL STEM DEPUY 01/15/2017 7:39 AM EDT Primary osteoarthritis of left hip TOTAL HIP ARTHROPLASTY, ANTERIOR APPROACH (WRVU 19.6) 01/15/2017 7:39 AM EDT Primary osteoarthritis of left hip HIP INTRAOP RADIOLOGIC EXAMINATION, UNILATERAL, W PELVIS; 4+ VIEWS Routine 01/15/2017 5:58 AM EDT Primary osteoarthritis of left hip documented in this encounter Results * SCAN DOC: IMPLANTABLE DEVICES (01/18/2017 12:00 AM EDT) Narrative 01/18/2017 12:00 AM EDT Ordered by an unspecified provider. Scanning Provider MEDIA MGR SCAN EXT O RDR/RSLT * SCAN DOC: STUDENT ACTIVITIES DIRECTOR (01/18/2017 12:00 AM EDT) Anatomical Region Laterality Modality Other Narrative 01/18/2017 12:00 AM EDT Ordered by an unspecified provider. Scanning Provider MEDIA MGR SCAN EXT O RDR/RSLT * (ABNORMAL) Differential, Automated (01/17/2017 4:37 AM EDT) Neutrophil % 80.6 % [facility] Neutrophil Absolute 8.94(H) 1.70 - 6.10 x10(3)/mc L [facility] Lymph % 11.0 % [facility] Lymphocytes Abs 1.2 0.9 - 3.2 x10(3)/mc L [facility] Monocyte % 7.9 % [facility] Monocyte Abs 0.9 0.3 - 0.9 x10(3)/mc L [facility] Eos % 0.0 % [facility] Eosinophils Abs 0.0 0.0 - 0.4 x10(3)/mc L [facility] Basophil % 0.0 % [facility] Baso Absolute 0.0 0.0 - 0.1 x10(3)/mc L [facility] Immature Gran % 0.50 % [facility] Comment: Immature granulocytes(IG's)percentage and absolute count will include metamyelocytes, myelocytes, and promyelocytes. Blood smears from CBCs yielding IG's will be scanned manually for concordance. If this scan disagrees with the automated IG or if promyelocytes are noted, a manual differential will be performed. Immature Gran Absolute 0.06(H) 0.00 - 0.04 x10(3)/[facility] Blood specimen (specimen) 01/17/2017 4:37 AM EDT 01/17/2017 5:01 AM EDT Narrative Resulting Agency Comment Spec In Lab Pineda Montague MD HEMATOLOGY ORDERABLE S [facility] [place] [address] * (ABNORMAL) Hemogram (01/17/2017 4:37 AM EDT) White Blood Cell 11.1(H) 4.0 - 9.5 x10(3)/[facility] Red Blood Cell 3.41(L) 4.58 - 5.54 x10(6)/ L [facility] Hemoglobin 10.6(L) 13.7 - 16.5 gm/dL [facility] Hematocrit 31.0(L) 40.5 - 48.5 % [facility] Mean Cell Volume 90.9 82.9 - 93.1 fL [facility] Mean Cell Hemoglobin 31.1 27.5 - 32.1 pg [facility] Mean Cell Hemoglobin Concentration 34.2 32.0 - 35.7 gm/dL [facility] Platelet 174 145 - 357 x10(3)/ L [facility] RDW Standard Deviation 43.2 36.0 - 45.0 fL [facility] RDW coefficient of variation 13.1 11.4 - 13.8 % [facility] Mean Platelet Volume 10.6 7.6 - 12.9 fL [facility] NRBC% auto 0.0 % [facility] NRBC Absolute 0.000 0.000 - 0.000 x10(3)/mc L [facility] Blood specimen (specimen) 01/17/2017 4:37 AM EDT 01/17/2017 5:01 AM EDT Narrative Resulting Agency Comment Spec In Lab Pineda Montague MD HEMATOLOGY ORDERABLE S [facility] [place] [address] * (ABNORMAL) Basic Metabolic Panel (non-fasting) (01/17/2017 4:37 AM EDT) Glucose 126 65 - 199 mg/dL [facility] Comment:Diabetes: >=200 mg/d L plus symptoms Blood Urea Nitrogen 33(H) 10 - 20 mg/dL [facility] Creatinine 1.74(H) 0.80 - 1.50 mg/dL [facility] Comment: Please note that the pediatric reference intervals supplied above were not validated at [facility]. Results from pediatric patients should be interpreted in conjunction to the patient's age, height and muscle mass. Sodium 144 135 - 145 mmol/L [facility] Potassium 4.7 3.5 - 5.0 mmol/L [facility] Comment: Please note: ??Patients with WBC >100,000 may have falsely elevated Potassium levels. ??For accurate Potassium quantification in these patients send serum separator tube (gold top) for subsequent determinations. ??Contact the Clinical Chemistry Laboratory if there are any questions. Chloride 107 98 - 107 mmol/L [facility] Carbon Dioxide 25 22 - 31 mmol/L [facility] Anion Gap 12 5 - 15 mmol/L [facility] Calcium 8.2(L) 8.5 - 10.5 mg/dL [facility] Est Glomerular Filtration Rate 39(L) >=60 [facility] Comment: This estimated GFR (eGFR) value [...] the following links into your internet browser. [email or web address] Blood specimen (specimen) 01/17/2017 4:37 AM EDT 01/17/2017 5:01 AM EDT Narrative Resulting Agency Comment Spec In Lab Pineda Montague MD CHEMISTRY ORDERABLES [facility] [place] [address] * (ABNORMAL) Differential, Automated (01/16/2017 3:42 AM EDT) Neutrophil % 84.4 % [facility] Neutrophil Absolute 10.34(H) 1.70 - 6.10 x10(3)/mc L [facility] Lymph % 7.3 % [facility] Lymphocytes Abs 0.9 0.9 - 3.2 x10(3)/mc L [facility] Monocyte % 7.7 % [facility] Monocyte Abs 0.9 0.3 - 0.9 x10(3)/mc L [facility] Eos % 0.0 % [facility] Eosinophils Abs 0.0 0.0 - 0.4 x10(3)/mc L [facility] Basophil % 0.1 % [facility] Baso Absolute 0.0 0.0 - 0.1 x10(3)/mc L [facility] Immature Gran % 0.50 % [facility] Comment: Immature granulocytes(IG's)percentage and absolute count will include metamyelocytes, myelocytes, and promyelocytes. Blood smears from CBCs yielding IG's will be scanned manually for concordance. If this scan disagrees with the automated IG or if promyelocytes are noted, a manual differential will be performed. Immature Gran Absolute 0.06(H) 0.00 - 0.04 x10(3)/mc L [facility] Blood specimen (specimen) 01/16/2017 3:42 AM EDT 01/16/2017 4:07 AM EDT Narrative Resulting Agency Comment Spec In Lab Pineda Montague MD HEMATOLOGY ORDERABLE S [facility] [place] [address] * (ABNORMAL) Hemogram (01/16/2017 3:42 AM EDT) White Blood Cell 12.2(H) 4.0 - 9.5 x10(3)/mc L [facility] Red Blood Cell 3.72(L) 4.58 - 5.54 x10(6)/mc L [facility] Hemoglobin 11.9(L) 13.7 - 16.5 gm/dL [facility] Hematocrit 33.7(L) 40.5 - 48.5 % [facility] Mean Cell Volume 90.6 82.9 - 93.1 fL [facility] Mean Cell Hemoglobin 32.0 27.5 - 32.1 pg [facility] Mean Cell Hemoglobin Concentration 35.3 32.0 - 35.7 gm/dL [facility] Platelet 172 145 - 357 x10(3)/mc L [facility] RDW Standard Deviation 42.7 36.0 - 45.0 fL [facility] RDW coefficient of variation 13.1 11.4 - 13.8 % [facility] Mean Platelet Volume 10.4 7.6 - 12.9 fL [facility] NRBC% auto 0.0 % [facility] NRBC Absolute 0.000 0.000 - 0.000 x10(3)/mc L [facility] Blood specimen (specimen) 01/16/2017 3:42 AM EDT 01/16/2017 4:07 AM EDT Narrative Resulting Agency Comment Spec In Lab Pineda Montague MD HEMATOLOGY ORDERABLE S [facility] [place] [address] * (ABNORMAL) Basic Metabolic Panel (non-fasting) (01/16/2017 3:42 AM EDT) Glucose 134 65 - 199 mg/dL [facility] Comment:Diabetes: >=200 mg/d L plus symptoms Blood Urea Nitrogen 26(H) 10 - 20 mg/dL [facility] Creatinine 1.66(H) 0.80 - 1.50 mg/dL [facility] Comment: Please note that the pediatric reference intervals supplied above were not validated at [facility]. Results from pediatric patients should be interpreted in conjunction to the patient's age, height and muscle mass. Sodium 138 135 - 145 mmol/L [facility] Potassium 4.4 3.5 - 5.0 mmol/L [facility] Comment: Please note: ??Patients with WBC >100,000 may have falsely elevated Potassium levels. ??For accurate Potassium quantification in these patients send serum separator tube (gold top) for subsequent determinations. ??Contact the Clinical Chemistry Laboratory if there are any questions. Chloride 103 98 - 107 mmol/L [facility] Carbon Dioxide 22 22 - 31 mmol/L [facility] Anion Gap 13 5 - 15 mmol/L [facility] Calcium 8.4(L) 8.5 - 10.5 mg/dL [facility] Est Glomerular Filtration Rate 42(L) >=60 [facility] Comment: This estimated GFR (eGFR) value [...] the following links into your internet browser. [email or web address] Blood specimen (specimen) 01/16/2017 3:42 AM EDT 01/16/2017 4:07 AM EDT Narrative Resulting Agency Comment Spec In Lab Pineda Montague MD CHEMISTRY ORDERABLES [facility] [place] [address] * XR Pelvis (Generic) (01/15/2017 12:05 PM EDT) Anatomical Region Laterality Modality Pelvis N/A Digital Radiogra phy Impressions 01/15/2017 2:21 PM EDT No immediate complication seen. Narrative 01/15/2017 2:21 PM EDT EXAMINATION: XR PELVIS (GENERIC) CLINICAL HISTORY: s/p left JOHN TECHNIQUE: Frontal pelvis COMPARISON: July 26, 2016 FINDINGS: LEFT total hip arthroplasty. Hardware appears intact. No periprosthetic fracture seen. No acute osseous injury appreciated. Fragmented course densities project over the LEFT hip; correlate with history and examination. Procedure Note Andre Castillo MD - 01/15/2017 EXAMINATION: XR PELVIS (GENERIC) CLINICAL HISTORY: s/p left JOHN TECHNIQUE: Frontal pelvis COMPARISON: July 26, 2016 FINDINGS: LEFT total hip arthroplasty. Hardware appears intact. No periprostheticfracture seen. No acute osseous injury appreciated. Fragmented course densitiesproject over the LEFT hip; correlate with history and examination. IMPRESSION No immediate complication seen. Pineda Montague MD IMG DX ORDERABLES * XR Fluoro No Rad <1Hr - OR Use (01/15/2017 10:19 AM EDT) Narrative [facility] - 01/15/2017 10:19 AM EDT This order does not need a radiologist interpretation. ?? Pineda Montague MD IMG FLUORO ORDERABLE S [place], [place] documented in this encounter Visit Diagnoses Diagnosis s/p LEFT anterior JOHN on 01/15/[address] Montague- Primary Hip joint replacement by other means Primary osteoarthritis of left hip Primary localized osteoarthrosis, pelvic region and thigh documented in this encounter Admitting Diagnoses Diagnosis Primary osteoarthritis of left hip Primary localized osteoarthrosis, pelvic region and thigh documented in this encounter Administered Medications Inactive Administered Medications - up to 3 most recent administrations Medication Order MAR Action Action Date Dose Rate Site acetaminophen (TYLENOL) tablet 1,000 mg 1,000 mg, Oral, ONCE, 1 dose, On Fri01/15/17 at 0630, Administer on arrival in Same Day Program, Day of Surgery (Day of Procedure), Routine Given 01/15/2017 6:30 AM EDT 1,000 mg acetaminophen (TYLENOL) tablet 1,000 mg 1,000 mg, Oral, EVERY 8 HOURS SCHEDULED, First dose on Fri01/15/17 at 1400, Until Discontinued, Maximum dose of acetaminophen is 4000 mg from all sources in 24 hours., Routine Given 01/17/2017 1:33 PM EDT 1,000 mg Given 01/17/2017 8:12 AM EDT 1,000 mg Given 01/16/2017 9:06 PM EDT 1,000 mg albuterol (PROVENTIL HFA;VENTOLIN HFA;PROAIR) 90 mcg/actuation inhaler 2 puff 2 puff, Inhalation, EVERY 6 HOURS PRN, Starting on Fri01/16/17 at 1053, Until Fri01/17/17 at 1549, Wheezing, Routine aspirin EC tablet 81 mg 81 mg, Oral, 2 TIMES DAILY, First dose on Fri01/15/17 at 2100, Until Discontinued, Routine Given 01/17/2017 8:13 AM EDT 81 mg Given 01/16/2017 9:05 PM EDT 81 mg Given 01/16/2017 8:51 AM EDT 81 mg ceFAZolin (ANCEF) 1g in dextrose 5% 50mL 1,000 mg (1 g), Intravenous, EVERY 8 HOURS, 3 doses, First dose on Fri01/15/17 at 1100, Last dose on Fri01/16/17 at 0300, Administer over 30 Minutes, Adjust to 4 hours from intraoperative dose. * Beta-lactam based antibiotics (eg. Ampicillin, Cefazolin, Aztreonam) should be administered within 4 hours of the preceding intraoperative dose. * Vancomycin, Flouroquinolones, Clindamycin, Gentamicin, and Metronidazole should be administered within 8 hours of the preceding intraoperative dose., Recovery (Recovery-Hospital Unit), Indication for (Active or Suspected): Prophylaxis Given 01/16/2017 2:59 AM EDT 1,000 mg 100 mL/ hr Given 01/15/2017 6:22 PM EDT 1,000 mg 100 mL/hr Given 01/15/2017 2:00 PM EDT 1,000 mg 100 mL/hr dexamethasone (DECADRON) tablet 4 mg 4 mg, Oral, DAILY, 2 doses, First dose on Fri01/15/17 at 1545, Last dose on Natty 01/16/17 at 0900, Routine Given 01/16/2017 8:51 AM EDT 4 mg Given 01/15/2017 5:21 PM EDT 4 mg fentaNYL (PF) 50 mcg/mL 2mL syringe 25 mcg, Intravenous, EVERY 5 MIN PRN, Pain, for 1-4 pain score, Starting on Fri01/15/17 at 1028, Until Fri01/15/17 at 1238, for 1-4 pain score Hold for respiratory rate less than 10 per minute. Maximum dose: 250 mcg over one hour., PACU Recovery Given 01/15/2017 11:25 AM EDT 25 mcg Given 01/15/2017 11:18 AM EDT 25 mcg fentaNYL (PF) 50 mcg/mL 2mL syringe 50 mcg, Intravenous, EVERY 5 MIN PRN, Pain, for 5-10 pain score, Starting on Fri01/15/17 at 1028, Until Fri01/15/17 at 1238, for 5-10 pain score Hold for respiratory rate less than 10 per minute. Maximum dose: 250 mcg over one hour., PACU Recovery Given 01/15/2017 11:10 AM EDT 50 mcg gabapentin (NEURONTIN) capsule 300 mg 300 mg, Oral, ONCE, 1 dose, On Fri01/15/17 at 0630, Administer on arrival in Same Day Program, Day of Surgery (Day of Procedure), Routine Given 01/15/2017 6:30 AM EDT 300 mg gabapentin (NEURONTIN) capsule 600 mg 600 mg, Oral, NIGHTLY, 2 doses, First dose on Fri01/15/17 at 2100, Last dose on Fri01/16/17 at 2100, Routine Given 01/16/2017 9:06 PM EDT 600 mg Given 01/15/2017 8:41 PM EDT 600 mg HYDROmorphone (DILAUDID) syringe 0.2-0.4 mg 0.2-0.4 mg, Intravenous, EVERY 5 MIN PRN, Pain, Starting on Fri01/15/17 at 1028, Until Fri01/15/17 at 1238, For moderate pain (4-6) give: 0.2 mg every 5 minute prn For severe pain (7-10) give: 0.4 mg every 5 minutes prn Maximum dose: 4 mg per hour Hold for respiratory rate less than 10 per minute., PACU Recovery Given 01/15/2017 11:31 AM EDT 0.4 mg Given 01/15/2017 11:15 AM EDT 0.4 mg Given 01/15/2017 11:06 AM EDT 0.4 mg ketorolac (TORADOL) injection 15 mg 15 mg, Intravenous, EVERY 6 HOURS SCHEDULED, 4 doses, First dose on Fri01/15/17 at 1100, Last dose on Fri01/16/17 at 0500, Routine Given 01/16/2017 5:21 AM EDT 15 mg Given 01/15/2017 11:00 PM EDT 15 mg Given 01/15/2017 5:22 PM EDT 15 mg lactated ringers infusion 1,000 mL 1,000 mL, at 100 mL/hr, Intravenous, CONTINUOUS, Starting on Fri01/15/17 at 1145, Until Fri01/17/17 at 1549, Recovery (Recovery-Hospital Unit) New Bag 01/15/2017 3:37 PM EDT 1,000 mLs 100 mL/hr lactated ringers infusion 1,000 mL 1,000 mL, at 100 mL/hr, Intravenous, CONTINUOUS, Starting on Fri01/15/17 at 0800, Until Fri01/15/17 at 1238, Day of Surgery (Day of Procedure) New Bag 01/15/2017 7:40 AM EDT New Bag 01/15/2017 6:37 AM EDT 1,000 mLs 100 mL/hr multivitamin Lzco-Mq-XB-Min (THERAPEUTIC-M) 27-0.4 mg tablet 1 tablet 1 tablet, Oral, DAILY, First dose on Fri01/15/17 at 1700, Until Discontinued Given 01/17/2017 8:13 AM EDT 1 tablet Given 01/16/2017 8:51 AM EDT 1 tablet Given 01/15/2017 5:22 PM EDT 1 tablet oxyCODONE (ROXICODONE) immediate release tablet 5-15 mg 5-15 mg, Oral, EVERY 4 HOURS PRN, Starting on Fri01/15/17 at 1032, Until Fri01/17/17 at 1549, Pain, Give 5 mg for mild pain (1-3), 10 mg for moderate pain (4-6) or 15 mg for severe pain (7-10) May give an additional 5 mg in 30 minutes ONCE if pain not relieved., Routine Given 01/16/2017 9:06 PM EDT 5 mg Given 01/16/2017 9:55 AM EDT 5 mg Given 01/15/2017 5:22 PM EDT 10 mg pantoprazole (PROTONIX) tablet 20 mg 20 mg, Oral, DAILY, First dose on Fri01/15/17 at 1700, Until Discontinued, DO NOT CRUSH OR OPEN Given 01/17/2017 8:13 AM EDT 20 mg Given 01/16/2017 8:51 AM EDT 20 mg Given 01/15/2017 5:22 PM EDT 20 mg polyethylene glycol (MIRALAX) packet 17 g 17 g, Oral, 2 TIMES DAILY, First dose on Fri01/15/17 at 2100, Until Discontinued, Routine Given 01/17/2017 8:14 AM EDT 17 g Given 01/16/2017 9:06 PM EDT 17 g Given 01/16/2017 8:51 AM EDT 17 g senna-docusate (PERICOLACE) 8.6-50 mg per tablet 2 tablet 2 tablet, Oral, 2 TIMES DAILY, First dose on Fri01/15/17 at 2100, Until Discontinued, Routine Given 01/17/2017 8:14 AM EDT 2 tablets Given 01/16/2017 9:06 PM EDT 2 tablets Given 01/16/2017 8:51 AM EDT 2 tablets sodium chloride 0.9 % flush 5 mL 5 mL, Intravenous, 2 TIMES DAILY, First dose on Fri01/15/17 at 2100, Until Discontinued, Recovery (Recovery-Hospital Unit), Routine Given 01/17/2017 8:14 AM EDT 5 mLs Given 01/16/2017 9:30 PM EDT 5 mLs Given 01/15/2017 8:41 PM EDT 5 mLs terazosin (HYTRIN) capsule 1 mg 1 mg, Oral, NIGHTLY, First dose on Fri01/15/17 at 2100, Until Discontinued, Routine Given 01/16/2017 9:15 PM EDT 1 mg Given 01/15/2017 8:41 PM EDT 1 mg documented in this encounter Active and Recently Administered Medications Times are shown in EDT. Scheduled Medication Order 01/15/2017 01/16/2017 01/17/2017 acetaminophen (TYLENOL) tablet 1,000 mg (COMPLETED) 1,000 mg, Oral, ONCE, 1 dose, On Fri01/15/17 at 0630, Administer on arrival in Same Day Program, Day of Surgery (Day of Procedure), Routine 0630 (Given - Provider: Nay Santana RN) acetaminophen (TYLENOL) tablet 1,000 mg 1,000 mg, Oral, EVERY 8 HOURS SCHEDULED, First dose on Fri01/15/17 at 1400, Until Discontinued, Maximum dose of acetaminophen is 4000 mg from all sources in 24 hours., Routine 1411 (Given - Provider: Mita Zepeda RN)2200 (Given - Provider: Nina Hudson RN) 0521 (Given - Provider: Nina Hudson RN)1421 (Given - Provider: Aydee Smith RN)210 (Given - Provider: Inez Caldwell, DEANNA) 0812 (Given - Provider: Patti Boo, DEANNA)1333 (Given - Provider: Patti Boo, DEANNA) aspirin EC tablet 81 mg 81 mg, Oral, 2 TIMES DAILY, First dose on Fri01/15/17 at 2100, Until Discontinued, Routine 2040 (Given - Provider: Nina Hudson RN) 0851 (Given - Provider: Allison Crowley RN)210 (Given - Provider: Inez Caldwell, DEANNA) 0813 (Given - Provider: Patti Boo, DEANNA) ceFAZolin (ANCEF) 1g in dextrose 5% 50mL (COMPLETED) 1,000 mg (1 g), Intravenous, EVERY 8 HOURS, 3 doses, First dose on Fri01/15/17 at 1100, Last dose on Fri01/16/17 at 0300, Administer over 30 Minutes, Adjust to 4 hours from intraoperative dose. * Beta-lactam based antibiotics (eg. Ampicillin, Cefazolin, Aztreonam) should be administered within 4 hours of the preceding intraoperative dose. * Vancomycin, Flouroquinolones, Clindamycin, Gentamicin, and Metronidazole should be administered within 8 hours of the preceding intraoperative dose., Recovery (Recovery-Hospital Unit), Indication for (Active or Suspected): Prophylaxis 1400 (Given - Provider: Mita Zepeda RN - Comment: Given in OR at 0807.)1822 (Given - Provider: Aydee Smith RN) 0259 (Given - Provider: Nina Hudson RN) ceFAZolin (ANCEF) 2g in dextrose 5% 100 mL (COMPLETED) 2 g, Intravenous, EVERY 3 HOURS, 1 dose, First dose on Fri01/15/17 at 0630, Administer over 30 Minutes, Redose after 3 hours., Intra-Operative (Intra-Procedure), Indication for (Active or Suspected): Prophylaxis 0807 (Given - Provider: Mahsa Zabala CRNA) dexamethasone (DECADRON) tablet 4 mg (COMPLETED) 4 mg, Oral, DAILY, 2 doses, First dose on Fri01/15/17 at 1545, Last dose on Fri01/16/17 at 0900, Routine 1721 (Given - Provider: Aydee Smith RN) 0851 (Given - Provider: Allison Crowley RN) gabapentin (NEURONTIN) capsule 300 mg (COMPLETED) 300 mg, Oral, ONCE, 1 dose, On Fri01/15/17 at 0630, Administer on arrival in Same Day Program, Day of Surgery (Day of Procedure), Routine 0630 (Given - Provider: Nay Santana RN) gabapentin (NEURONTIN) capsule 300 mg(Linked Group 1) 300 mg, Oral, NIGHTLY, First dose on Fri01/17/17 at 2100, Until Discontinued, Routine gabapentin (NEURONTIN) capsule 600 mg (COMPLETED)(Linked Group 1) 600 mg, Oral, NIGHTLY, 2 doses, First dose on Fri01/15/17 at 2100, Last dose on Fri01/16/17 at 2100, Routine 2040 (Given - Provider: Nina Hudson RN) 2105 (Given - Provider: Inez Caldwell, DEANNA) ketorolac (TORADOL) injection 15 mg () 15 mg, Intravenous, EVERY 6 HOURS SCHEDULED, 4 doses, First dose on Fri01/15/17 at 1100, Last dose on Fri01/16/17 at 0500, Routine 1722 (Given - Provider: Aydee Smith RN - Comment: Given in OR at 0836.)1800 (Not Given - Provider: Aydee Smith RN - Reason: See comment - Comment: last dose at 172)2300 (Given - Provider: Nina Hudson RN) 0521 (Given - Provider: Nina Hudson RN) multivitamin Pttt-Hf-UG-Min (THERAPEUTIC-M) 27-0.4 mg tablet 1 tablet 1 tablet, Oral, DAILY, First dose on Fri01/15/17 at 1700, Until Discontinued 172 (Given - Provider: Aydee Smith RN) 0851 (Given - Provider: Allison Crowley, DEANNA) 0813 (Given - Provider: Patti Boo, DEANNA) pantoprazole (PROTONIX) tablet 20 mg 20 mg, Oral, DAILY, First dose on Fri01/15/17 at 1700, Until Discontinued, DO NOT CRUSH OR OPEN 172 (Given - Provider: Aydee Smith RN) 0851 (Given - Provider: Allison Crowley, DEANNA) 0813 (Given - Provider: Patti Boo, RN) polyethylene glycol (MIRALAX) packet 17 g 17 g, Oral, 2 TIMES DAILY, First dose on Fri01/15/17 at 2100, Until Discontinued, Routine 2040 (Given - Provider: Nina Hudson RN) 0851 (Given - Provider: Allison Crowley, DEANNA)2105 (Given - Provider: Inez Caldwell, DEANNA) 0814 (Given - Provider: Patti Boo, DEANNA) senna-docusate (PERICOLACE) 8.6-50 mg per tablet 2 tablet 2 tablet, Oral, 2 TIMES DAILY, First dose on Fri01/15/17 at 2100, Until Discontinued, Routine 2040 (Given - Provider: Nina Hudson RN) 0851 (Given - Provider: Allison Crowley, RN)2105 (Given - Provider: Inez Caldwell, DEANNA) 0814 (Given - Provider: Patti Boo, RN) sodium chloride 0.9 % flush 5 mL 5 mL, Intravenous, 2 TIMES DAILY, First dose on Fri01/15/17 at 2100, Until Discontinued, Recovery (Recovery-Hospital Unit), Routine 2040 (Given - Provider: Nina Hudson RN) 09 (Not Given - Provider: Allison Crowley RN - Reason: See comment - Comment: infusing)2129 (Given - Provider: Inez Caldwell, DEANNA) 813 (Given - Provider: Patti Boo, DEANNA) terazosin (HYTRIN) capsule 1 mg 1 mg, Oral, NIGHTLY, First dose on Fri01/15/17 at 2100, Until Discontinued, Routine 2040 (Given - Provider: Nina Hudson RN) 2114 (Given - Provider: Inez Caldwell RN) tranexamic acid (CYKLOKAPRON) 1,430 mg in sodium chloride 0.9% 114.3 mL (COMPLETED) 1,430 mg (rounded from 1,429.5 mg = 15 mg/kg/dose ? 95.3 kg), Intravenous, ONCE, 1 dose, On Fri01/15/17 at 0630, Administer over 30 Minutes, Dilute tranexamic acid dose in 100 mL sodium chloride 0.9% prior to administration. For patients less than or equal to 200 kg infuse over 30 minutes. For patients greater than 200 kg infuse over 60 minutes. , Day of Surgery (Day of Procedure) 0807 (New Bag - Provider: Mahsa Zabala CRNA) Continuous Medication Order 01/15/2017 01/16/2017 01/17/2017 lactated ringers infusion 1,000 mL 1,000 mL, at 100 mL/hr, Intravenous, CONTINUOUS, Starting on Fri01/15/17 at 1145, Until Fri01/17/17 at 1549, Recovery (Recovery-Hospital Unit) 1537 (New Bag - Provider: Aydee Smith RN) 0856 (Stopped - Provider: Allison Crowley RN) lactated ringers infusion 1,000 mL (CANCELED) 1,000 mL, at 100 mL/hr, Intravenous, CONTINUOUS, Starting on Fri01/15/17 at 0800, Until Fri01/15/17 at 1238, Day of Surgery (Day of Procedure) 0637 (New Bag - Provider: Niya Ventura RN)0740 (New Bag - Provider: Mahsa Zabala CRNA)1057 (Anesthesia Volume Adjustment - Provider: Mahsa Zabala CRNA) PRN Medication Order 01/15/2017 01/16/2017 01/17/2017 albuterol (PROVENTIL HFA;VENTOLIN HFA;PROAIR) 90 mcg/actuation inhaler 2 puff 2 puff, Inhalation, EVERY 6 HOURS PRN, Starting on Natty 01/16/17 at 1053, Until Fri01/17/17 at 1549, Wheezing, Routine bisacodyl (DULCOLAX) EC tablet 10 mg 10 mg, Oral, 2 TIMES DAILY PRN, Starting on Fri01/15/17 at 1529, Until Fri01/17/17 at 1549, Constipation, DO NOT CRUSH OR OPEN Administer if needed per patient's routine or if no bowel movement within 48 hours to achieve: 1) One bowel movement at least every 48 hours, AND 2) Without straining. If multiple bowel medications ordered, consider adding bisacodyl if polyethylene glycol (MIRALAX), docusate/senna, or lactulose not sufficient., Routine bisacodyl (DULCOLAX) suppository 10 mg 10 mg, Rectal, DAILY PRN, Starting on Fri01/15/17 at 1529, Until Fri01/17/17 at 1549, Constipation, Administer if needed per patient's routine or if no bowel movement within 48 hours to achieve: 1) One bowel movement at least every 48 hours, AND 2) Without straining. If multiple bowel medications ordered, consider adding bisacodyl if polyethylene glycol (MIRALAX), docusate/senna, or lactulose not sufficient. If patient unable to take PO, may give MO if ordered, Routine BUpivacaine-EPINEPHrine 0.25 %-1:200,000 injection (CANCELED) ONCE PRN, Starting on Fri01/15/17 at 0835, Until Fri01/17/17 at 1549, Intra-Operative (Intra-Procedure), Routine 0835 (Given - Provider: Pineda Montague MD - Comment: 50 mL of bupivacaine-epinephrine 0.25%-1:200,000 mixed with 30 mg of ketorolac (30mg/mL) and 50mcg of clonidine (1000mcg/10mL). 30 mL of mixture injected into left hip.) cloNIDine injection (CANCELED) ONCE PRN, Starting on Fri01/15/17 at 0836, Until Fri01/17/17 at 1549, Intra-Operative (Intra-Procedure), Routine 0836 (Given - Provider: Pineda Montague MD - Comment: 50 mL of bupivacaine-epinephrine 0.25%-1:200,000 mixed with 30 mg of ketorolac (30mg/mL) and 50mcg of clonidine (1000mcg/10mL). 30 mL of mixture injected into left hip.) fentaNYL (PF) 50 mcg/mL 2mL syringe (CANCELED)(Linked Group 2) 25 mcg, Intravenous, EVERY 5 MIN PRN, Pain, for 1-4 pain score, Starting on Fri01/15/17 at 1028, Until Fri01/15/17 at 1238, for 1-4 pain score Hold for respiratory rate less than 10 per minute. Maximum dose: 250 mcg over one hour., PACU Recovery 1110 (See Alternative - Provider: Rebecca Dalton)1118 (Given - Provider: Rebecca Dalton)1125 (Given - Provider: Rebecca Dalton) fentaNYL (PF) 50 mcg/mL 2mL syringe (CANCELED)(Linked Group 2) 50 mcg, Intravenous, EVERY 5 MIN PRN, Pain, for 5-10 pain score, Starting on Fri01/15/17 at 1028, Until Fri01/15/17 at 1238, for 5-10 pain score Hold for respiratory rate less than 10 per minute. Maximum dose: 250 mcg over one hour., PACU Recovery 1110 (Given - Provider: Rebecca Dalton)1118 (See Alternative - Provider: Rebecca Dalton)1125 (See Alternative - Provider: Rebecca Dalton) HYDROmorphone (DILAUDID) syringe 0.2-0.4 mg (CANCELED) 0.2-0.4 mg, Intravenous, EVERY 5 MIN PRN, Pain, Starting on Fri01/15/17 at 1028, Until Fri01/15/17 at 1238, For moderate pain (4-6) give: 0.2 mg every 5 minute prn For severe pain (7-10) give: 0.4 mg every 5 minutes prn Maximum dose: 4 mg per hour Hold for respiratory rate less than 10 per minute., PACU Recovery 1101 (Given - Provider: Rebecca Dalton)1106 (Given - Provider: Rebecca Dalton)1115 (Given - Provider: Rebecca Dalton)1131 (Given - Provider: Rebecca Dalton) ketorolac (TORADOL) injection (CANCELED) ONCE PRN, Starting on Fri01/15/17 at 0836, Until Fri01/17/17 at 1549, Intra-Operative (Intra-Procedure), Routine 0836 (Given - Provider: Pineda Montague MD - Comment: 50 mL of bupivacaine-epinephrine 0.25%-1:200,000 mixed with 30 mg of ketorolac (30mg/mL) and 50mcg of clonidine (1000mcg/10mL). 30 mL of mixture injected into left hip.) lactulose (CHRONULAC) 20 gram/30 mL oral solution 20-40 g 20-40 g (30-60 mL), Oral, DAILY PRN, Starting on Fri01/15/17 at 1529, Until Fri01/17/17 at 1549, Constipation, Administer if needed per patient's routine or if no bowel movement within 48 hours. Start with 30 mL orally to achieve: 1) One bowel movement at least every 48 hours, AND 2) Without straining. If no bowel movement within 24 hours, may increase to 60 mL orally once daily PRN. If multiple bowel medications ordered, consider adding lactulose first or if polyethylene glycol (MIRALAX) or docusate/senna not sufficient., Routine lidocaine (XYLOCAINE) 10 mg/mL (1 %) injection 3 mg 3 mg (0.3 mL), Subcutaneous, ONCE PRN, 1 dose, Starting on Fri01/15/17 at 1529, Until Fri01/17/17 at 1549, for discomfort with PIV insertion, Recovery (Recovery-Hospital Unit), Routine oxyCODONE (ROXICODONE) immediate release tablet 5-15 mg 5-15 mg, Oral, EVERY 4 HOURS PRN, Starting on Fri01/15/17 at 1032, Until Fri01/17/17 at 1549, Pain, Give 5 mg for mild pain (1-3), 10 mg for moderate pain (4-6) or 15 mg for severe pain (7-10) May give an additional 5 mg in 30 minutes ONCE if pain not relieved., Routine 1146 (Given - Provider: Rebecca Dalton)1722 (Given - Provider: Aydee Smith, DEANNA) 0955 (Given - Provider: Aydee Smith, DEANNA)2106 (Given - Provider: Inez Caldwell RN) sodium chloride 0.9 % flush 5-20 mL 5-20 mL, Intravenous, EVERY 1 MIN PRN, Starting on Fri01/15/17 at 1529, Until Fri01/17/17 at 1549, flush, Flush pertains to all indwelling lines. Flush per protocol found in the job aid using the link provided on this medication record., Recovery (Recovery-Hospital Unit), Routine Linked Groups Order Group 1: gabapentin (NEURONTIN) capsule 600 mg (COMPLETED)Jump to med 600 mg, Oral, NIGHTLY, 2 doses, First dose on Fri01/15/17 at 2100, Last dose on Natty 01/16/17 at 2100, Routine Followed by gabapentin (NEURONTIN) capsule 300 mgJump to med 300 mg, Oral, NIGHTLY, First dose on Fri01/17/17 at 2100, Until Discontinued, Routine Group 2: fentaNYL (PF) 50 mcg/mL 2mL syringe (CANCELED)Jump to med 25 mcg, Intravenous, EVERY 5 MIN PRN, Pain, for 1-4 pain score, Starting on Fri01/15/17 at 1028, Until Fri01/15/17 at 1238, for 1-4 pain score Hold for respiratory rate less than 10 per minute. Maximum dose: 250 mcg over one hour., PACU Recovery Or fentaNYL (PF) 50 mcg/mL 2mL syringe (CANCELED)Jump to med 50 mcg, Intravenous, EVERY 5 MIN PRN, Pain, for 5-10 pain score, Starting on Fri01/15/17 at 1028, Until Fri01/15/17 at 1238, for 5-10 pain score Hold for respiratory rate less than 10 per minute. Maximum dose: 250 mcg over one hour., PACU Recovery documented in this encounter Care Teams Force Variation Equipment Tender Relationship Specialty Start Date End Date Duke Ramos MD [address] [place] [address] PCP - General Family Medicine 08/23/16 06/28/18 documented as of this encounter
--- OUTSIDE RECORDS SUMMARY | 2024-07-19 16:49 | XMS_ITS | Encounter Summary ---
Author Organization [facility] [place] [address] Care Team Providers Care Receptionist Scheduler Name Role Phone Duke Ramos MD Primary Care Provider Encounter Details Date Type Department Care Team (Late st Contact Info) Description 08/22/2016 Orders Only [facility]rology at [facility] [place] [address] Jarocho Jenkins MD [address] [place] [address] Social History Tobacco Use Types Packs/Day Years [...] on filedocumented in this encounter Care Teams Receptionist Scheduler Relationship Specialty Start Date End Date Duke Ramos MD [address] [place] [address] PCP - General Family Medicine 08/23/16 06/28/18 documented as of this encounter
--- OUTSIDE RECORDS SUMMARY | 2024-07-19 16:49 | XMS_ITS | Encounter Summary ---
Author Organization Formerly [facility] [place] [address] Care Team Providers Care Operator Maintainer Name Role Phone Duke Ramos MD Primary Care Provider [phone] Encounter Details Date Type Department Care Team (Latest Contact Info) Description 10/22/2016 1:15 PM EST Laboratory Appointment Lab [address] [facility] [id number] History of kidney cancer Social History Tobacco [...] Scheduled Procedures Name Priority Associated Diagnoses Date/Ti wi EGD, UPPER GI ENDOSCOPY (WRV U 2.09) Esophageal dysphagia Encounter for colorectal cancer screening COLONOSCOPY, DIAGNOSTIC (WRV U 3.26) Esophageal dysphagia Encounter for colorectal cancer screening documented as of this encounter Procedures Procedure Name Priority Date/Time Associated Diagnosis Comments COMPREHENSIVE METABOLIC PANEL Routine 10/22/2016 12:14 PM EST History of kidney cancer documented in this encounter Results * (ABNORMAL) Comprehensive metabolic panel (non-fasting) (10/22/2016 12:14 PM EST) Glucose 128 65 - 199 mg/dL [facility] Comment:Diabetes: >=200 mg/d L plus symptoms Blood Urea Nitrogen 25(H) 10 - 20 mg/dL [facility] Creatinine 1.72(H) 0.80 - 1.50 mg/dL [facility] Comment: Please note that the pediatric reference intervals supplied above were not validated at [facility]. Results from pediatric patients should be interpreted in conjunction to the patient's age, height and muscle mass. Sodium 139 135 - 145 mmol/L [facility] Potassium 4.8 3.5 - 5.0 mmol/L [facility] Comment: Please note: ??Patients with WBC >100,000 may have falsely elevated Potassium levels. ??For accurate Potassium quantification in these patients send serum separator tube (gold top) for subsequent determinations. ??Contact the Clinical Chemistry Laboratory if there are any questions. Chloride 103 98 - 107 mmol/L [facility] Carbon Dioxide 24 22 - 31 mmol/L [facility] Anion Gap 12 5 - 15 mmol/L [facility] Calcium 9.0 8.5 - 10.5 mg/dL [facility] Protein, Total 7.0 6.1 - 8.0 gm/dL [facility] Albumin 4.1 3.2 - 5.2 gm/dL [facility] Aspartate Aminotransferase 30 0 - 39 unit/L [facility] Alanine Aminotransferase 47 0 - 55 unit/L [facility] Alkaline Phosphatase 121(H) 40 - 120 unit/L [facility] Bilirubin, Total 0.3 0.2 - 1.3 mg/dL [facility] Bilirubin, Direct 0.1 0.0 - 0.3 mg/dL [facility] Est Glomerular Filtration Rate 40(L) >=60 [facility] Comment: This estimated GFR (eGFR) [...] the following links into your internet browser. [email or web address] [email or web address] Blood specimen (specimen) 10/22/2016 12:14 PM EST 10/22/2016 12:19 PM EST Narrative Resulting Agency Comment Spec In Lab Jarocho Jenkins MD [place] [address] documented in this encounter Visit Diagnoses Diagnosis History of kidney cancer Personal history of malignant neoplasm of kidney documented in this encounter Care Teams Operator Maintainer Relationship Specialty Start Date End Date Duke Ramos MD [address] [place] [address] PCP - General Family Medicine 08/23/16 06/28/18 documented as of this encounter
--- OUTSIDE RECORDS SUMMARY | 2024-07-19 16:49 | XMS_ITS | Encounter Summary ---
Author Organization [facility] [place] [address] Care Team Providers Care Marketing Support Specialist Name Role Phone Duke Ramos MD Primary Care Provider [phone] Reason for Visit * Reason Comments Left Hip Pain left ANT JOHN 01/15/17 Encounter Details Date Type Department Care Team (Latest Contact Info) Description 01/02/2017 1:50 PM EDT Office [place] [phone] Pineda Montague MD Primary osteoarthritis of left hip Social History [...] Sign Reading Time Taken Comments Blood Pressure 151/94 01/02/2017 1:33 PM EDT Pulse 81 01/02/2017 1:33 PM EDT Temperature - - Respiratory Rate - - Oxygen Saturation - - Inhaled Oxygen Concentration - - Weight 99.2 kg (218 lb 9.6 oz) 01/02/2017 1:33 P M EDT Height 172.7 cm (5' 8) 01/02/2017 1:33 PM EDT Body Mass Index 33.24 01/02/2017 1:33 PM EDT documented in this encounter Progress Notes * Pineda Montague MD - 01/02/2017 1:50 PM EDT Arthroplasty History/Previous Hip Surgery: 1. None This note is recorded by SUNDI L CANTLIN, RN acting as a scribe for Dr. Trisha Montague. PREOPERATIVE VISIT Interval History: Shree Ortez Jr. is a pleasant 66 y.o. year old male with severe osteoarthritis of the hip being seen today to discuss a LEFT total hip arthroplasty. His history and physical exam were reviewed in detail. His history in regards to his hip was once again discussed and is outlined in a previous note. He states the hip pain and disability is worse since their previous visit. They have reviewed their options and at this point are expressing a desire to proceed with surgery. He does not endorse a history of DVT/PE or clotting Physical Exam: Exam is previously documented in my note and is essentially unchanged. Inspection of his skin in the intertriginous groin fold on the operative side demonstrates No skin breakdown. Significant Medical Comorbidities Patient Active Problem List Diagnosis Code ??? 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 Dysphagia R13.10 ??? Osteoarthritis of LEFT hip M16.9 ??? 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 Primary osteoarthritis of left hip M16.12 VITALS: BP Readings from Last 1 Encounters: 01/02/17 (!) 151/94 Pulse Readings from Last 1 Encounters: 01/02/17 81 Height: 172.7 cm (5' 8) Weight - Scale: 99.2 kg (218 lb 9.6 oz) Body mass index is 33.24 kg/(m^2). Relevant Lab Studies Lab Results Component Value Date WBC 5.2 12/23/2016 HGB 13.9 12/23/2016 HCT 40.6 12/23/2016 PLATELET 199 12/23/2016 CREATININE 1.52 (H) 12/23/2016 BUN 21 (H) 12/23/2016 NA 142 12/23/2016 K 4.5 12/23/2016 INR 1.0 12/23/2016 No results for input(s): HA1C in the last 7068 hours. No results for input(s): ALBUMIN in the last 168 hours. Estimated Creatinine Clearance: 54.6 mL/min (based on Cr of 1.52). B Pos Component Value Date/Time SPGRAVITYUA >1.035 (H) 10/22/2016 1554 PHUADIP 6.0 10/22/2016 1554 PROTEINUADIP Negative 10/22/2016 1554 GLUCOSEU Negative 10/22/2016 1554 KETONESUA Negative 10/22/2016 1554 UROBILIUADIP Normal 10/22/2016 1554 BLOODUADIP Negative 10/22/2016 1554 NITRATEUA Negative 10/22/2016 1554 LEUKOESTERUA Negative 10/22/2016 1554 WBCUA Not Present 10/22/2016 1554 BILIRUBINUA Negative 10/22/2016 1554 EKG: normal EKG, normal sinus rhythm, unchanged from previous tracings. Questionnaire Response [facility] Surgical Preop Visit 01/02/2017 PROMIS-10 General Health Fair PROMIS-10 Quality of Life Fair PROMIS-10 Physical Health Fair PROMIS-10 Mental Health Fair PROMIS-10 Social Activity Fair PROMIS-10 Everyday Activities Moderately PROMIS-10 Pain 8 PROMIS-10 Fatigue Moderate PROMIS-10 Social Roles Fair PROMIS-10 Anxious or Depressed Sometimes PROMIS PHYSICAL SCORE (range 16-68) 34.9 PROMIS MENTAL SCORE (range 21-68) 36.3 Treatments Tried - Prior Surgery - HOOS JR Scores 46.65 JOHN Grade 2 Pain in other HIP None Back pain at this moment Moderate Health Literacy Somewhat [facility]ope[facility] Response 01/02/2017 HOOS JR Scores 46.65 Spine [facility] Response 01/02/2017 HOOS JR Scores 46.65 Radiographic evidence of joint damage: [0= normal; 1=minimal ; 2= some osteophytes , some narrowing ; 3= moderate osteophytes, significantnarrowing, mild deformity; 4= large osteophytes, marked narrowing, obvious deformity]: 3= moderate osteophytes, significant narrowing, mild deformity Assessment and Plan: This is a pleasant 66 y.o. year-old male who presents for a preoperative appointment today for LEFThip OA. I had a long discussion with him regarding the risks and benefits of total hip arthroplasty. I indicated that in my opinion, this is the treatment option most likely to restore a more normal,pain-free level of function and that we have exhausted reasonable non-operative alternatives. I used total hip implants to demonstrate how I perform the procedure and all of their questions were answered. Mr. Ortez expressed a desire to pursue this option. We then discussed in great detail the risks associated with the proposed surgery. These included but were not limited to: bleeding (which may or may not require transfusion), infection, deep venous thrombosis, pulmonary embolus, prosthetic failure, loosening, prosthetic fracture, femur or pelvic fracture, dislocation, leg-length inequality, persistent pain, need for revision, medical complications (including cardiac, respiratory and neurologic complications), anaesthetic complications, and . The patient seemed to understand the nature of this procedure's risks. We also discussed the likely benefit of improved stride length, improved range of motion, decreased pain, decreased need for pain medications and decrease functional limitations. The patient is aware that it would take on average 2 days in the hospital, followed by approximately 12-18 months to full rehabilitation. I did review the history and physical today which says the patient is cleared for surgery and has no specific recommendations for further testing. I reviewed the labs and did not identify anything that would warrant surgical delay. We discussed DNR status and he is a Full Code We reviewed options for postoperative DVT prophylaxis, based on AAOS guidelines. We discussed the pros and cons of different anticoagulants in terms of effectiveness and clot / embolus preventions vs. risks of bleeding and wound complications. We also reviewed their preferences regarding use of blood products and confirmed that while we would endeavor to minimize the risks of needing any transfusions, if circumstances were such that one ormore were indeed required, he would NOT refuse a blood transfusion. Opioid [place]MP 01/02/2017 [place] Query Date 12/30/2016 Shree Ortez Jr. will be prescribed a prescription opioid for the treatment of acute post-operative pain related to Orthopedic surgery. Shree Ortez Jr. will be advised to take the smallest dose possible to control their pain and as their pain improves to take smaller doses and increase the time between doses. In addition to this medication, non-opioid medications will be prescribed for adjunct treatment of their pain. Non-pharmacological treatment such as ice, elevation and activity modification will be recommended as appropriate. The Acute Opioid Therapy Informed Consent form has been completed and sent to medical records for scanning to chart. We discussed with them the possible discharge scenarios including going home versus needing to go to a rehab facility depending on how well their mobility progresses post-operatively. TJA Clotting and Bleeding Assessment Genetic predisposition or history of DVT or PE: No Hypercoaguable state?: No History of bleeding disorder?: No GI bleed or history of hemorrhagic stroke within the past 2 years: No Patient on lifelong anticoagulant for other reasons: No Discharge anticoagulation plan: ASA 81mg BID for 30 days Infection Prevention Patient demonstrated appropriate skin integrity/infection knowledge level after instructions provided: Yes Patient demonstrated appropriate dental prophylaxis knowledge level after instructions provided: Yes Patient demonstrated appropriate understanding of pre-op chlorhexideine wash and mupirocin ointmentuse after instructions provided: Yes General Assessment Total joint preparedness for surgery: Received binder, Attended class Patient understands when to call the office pre-op and post-op: Verbalizes understanding Assistive device(s) used pre-op: Straight cane Patient currently on narcotics: No Patient has narcotic agreement signed: No Prep for Surgery Advance Directive: Has one (on file in eD-H) Recommend referral to Patient Financial Services: No Living arrangement: Other (see comments) (He lives in his workshop.) Home layout: One level Who will provide post-op care and support: He has none Who will provide transportation home: His friend, Alfredo Rodríguez. Patient's desired discharge disposition: SNF Top 3 nursing choice facilities: [facility] or [facility] preference: No selection Outpatient PT preference: [facility] Discharge barriers and challenges: No supports Any remaining questions were solicited from the patient and answered. Mr. Ortez wishes to proceed accordingly and informed consent was subsequently obtained for a LEFT total hip arthroplasty. We will avoid discharge on Naprosyn secondary to concern for potential adverse events. I ensured that the patient has the needed samples of hibiclens wash to use both the night before and the morning of the anticipated surgery. I have personally evaluated the patient and agree with the above note as recorded by BRYN LYNNE RN. Dr. Reyna's RECCO: AVOID NSAID (single kidney with elevated creatinine) Continue prn albuterol. Hold Hytrin if SBP<100 K. MD Eddi 01/02/2017 The below has been copied from a prior note: In brief, patient is a 66-year-old male who is seen today for left hip pain and history of arthritis. At this point, patient's pain is become quite limiting. Vac in the quality of his life and work. Patient's exam is significant for advanced left hip osteoarthritis. X-rays show advanced arthritis. Discussed with him the arthritis ladder today. Discussed the role of injections versus total hip arthroplasty. ?? Discussed with patient today operative technique, in-hospital stay, outpatient follow-up. Discuss in great detail the risks associated with the proposed surgery. These included but were not limited to: bleeding (which may or may not require transfusion), infection, deep venous thrombosis, pulmonaryembolus, prosthetic failure, loosening, prosthetic fracture, femur or pelvic fracture, dislocation,leg-length inequality, persistent pain, medical complications (including cardiac, respiratory and neurologic complications), anaesthetic complications, and . The patient seemed to understand thenature of this procedure's risks. We also discussed the likely benefit of improved stride length, improved range of motion, decreased pain, decreased need for pain medications and decrease functionallimitations. The patient is aware that it would take 0-3 days in the hospital, followed by approximately 12-18 months to full rehabilitation. ?? At this point, patient elected to move forward total documented in this encounter Plan of Treatment Scheduled Procedures Name Priority Associated Diagnoses Date/Ti me EGD, UPPER GI ENDOSCOPY (WRV U 2.09) Esophageal dysphagia Encounter for colorectal cancer screening COLONOSCOPY, DIAGNOSTIC (WRV U 3.26) Esophageal dysphagia Encounter for colorectal cancer screening documented as of this encounter Visit Diagnoses Diagnosis Primary osteoarthritis of left hip Primary localized osteoarthrosis, pelvic region and thigh documented in this encounter Care Teams Marketing Support Specialist Relationship Specialty Start Date End Date Duke Ramos MD [address] [place] [address] PCP - General Family Medicine 08/23/16 06/28/18 documented as of this encounter
--- OUTSIDE RECORDS SUMMARY | 2024-07-19 16:49 | XMS_ITS | Encounter Summary ---
[facility] [address] Care Team Providers Care Cnc Service Engineer Name Role Phone Duke Ramos MD Primary Care Provider [phone] Encounter Details Date Type Department Care Team (Latest Contact Info) Description 12/23/2016 10:40 AM EDT [place] [id number] Primary osteoarthritis of left hip Social History [...] Procedure Name Priority Date/Time Associated Diagnosis Comments ABORH RECHECK STATUS Routine 12/23/2016 11:00 AM EDT HEMOGRAM Routine 12/23/2016 11:00 AM EDT Primary osteoarthritis of left hip DIFFERENTIAL, AUTOMATED Routine 12/23/2016 11:00 AM EDT Primary osteoarthritis of left hip TYPE AND SCREEN, SDP (FUTURE SURGERY, [facility] SAME DAY [place]GRAM ONLY) Routine 12/23/2016 11:00 AM EDT Primary osteoarthritis of left hip ABO/RH TYPING Routine 12/23/2016 11:00 AM EDT Primary osteoarthritis of left hip APTT Routine 12/23/2016 11:00 AM EDT Primary osteoarthritis of left hip PROTHROMBIN TIME Routine 12/23/2016 11:0 0 AM EDT Primary osteoarthritis of left hip CBC (WITH DIFF) Routine 12/23/2016 11:00 AM EDT Primary osteoarthritis of left hip ANTIBODY SCREEN Routine 12/23/2016 11:00 AM EDT Primary osteoarthritis of left hip BASIC METABOLIC PANEL Routine 12/23/2016 11:00 AM EDT Primary osteoarthritis of left hip documented in this encounter Results * ABORH Recheck Status (12/23/2016 11:00 AM EDT) ABORH Type Recheck Completed [facility] Blood specimen (specimen) 12/23/2016 11:00 AM EDT 12/23/2016 11:15 AM EDT Narrative Resulting Agency Comment Spec In Lab Pineda Montague MD BLOOD BANK LAB ORDER WILLIAM Performing Organization Address City/State/[facility] Co de Phone Number [facility] [place] [address] * Differential, Automated (12/23/2016 11:00 AM EDT) Neutrophil % 63.6 % [facility] Neutrophil Absolute 3.31 1.70 - 6.10 x10(3)/[facility] Lymph % 28.5 % [facility] Lymphocytes Abs 1.5 0.9 - 3.2 x10(3)/[facility] Monocyte % 6.5 % [facility] Monocyte Abs 0.3 0.3 - 0.9 x10(3)/[facility] Eos % 0.8 % [facility] Eosinophils Abs 0.0 0.0 - 0.4 x10(3)/[facility] Basophil % 0.4 % [facility] Baso Absolute 0.0 0.0 - 0.1 x10(3)/[facility] Immature Gran % 0.20 % [facility] Comment: Immature granulocytes(IG's)percentage and absolute count will include metamyelocytes, myelocytes, and promyelocytes. Blood smears from CBCs yielding IG's will be scanned manually for concordance. If this scan disagrees with the automated IG or if promyelocytes are noted, a manual differential will be performed. Immature Gran Absolute 0.01 0.00 - 0.04 x10(3)/[facility] Blood specimen (specimen) 12/23/2016 11:00 AM EDT 12/23/2016 11:20 AM EDT Narrative Resulting Agency Comment Spec In Lab Pineda Montague MD HEMATOLOGY ORDERABLE S Performing Organization Address City/State/[facility] Co de Phone Number [facility] [place] [address] * (ABNORMAL) Hemogram (12/23/2016 11:00 AM EDT) White Blood Cell 5.2 4.0 - 9.5 x10(3)/ L [facility] Red Blood Cell 4.49(L) 4.58 - 5.54 x10(6)/ L [facility] Hemoglobin 13.9 13.7 - 16.5 gm/dL [facility] Hematocrit 40.6 40.5 - 48.5 % [facility] Mean Cell Volume 90.4 82.9 - 93.1 fL [facility] Mean Cell Hemoglobin 31.0 27.5 - 32.1 pg [facility] Mean Cell Hemoglobin Concentration 34.2 32.0 - 35.7 gm/dL [facility] Platelet 199 145 - 357 x10(3)/ L [facility] RDW Standard Deviation 41.6 36.0 - 45.0 fL [facility] RDW coefficient of variation 12.8 11.4 - 13.8 % [facility] Mean Platelet Volume 10.3 7.6 - 12.9 fL [facility] NRBC% auto 0.0 % [facility] NRBC Absolute 0.000 0.000 - 0.000 x10(3)/mc L [facility] Blood specimen (specimen) 12/23/2016 11:00 AM EDT 12/23/2016 11:20 AM EDT Narrative Resulting Agency Comment Spec In Lab Pineda Montague MD HEMATOLOGY ORDERABLE S [facility] [place] [address] * Antibody screen (12/23/2016 11:00 AM EDT) Ab Screen Interp Negative [facility] Expires at [id number] on: 01/18/2017 [facility] Blood specimen (specimen) 12/23/2016 11:00 AM EDT 12/23/2016 11:15 AM EDT Narrative Resulting Agency Comment Spec In Lab Pineda Montague MD BLOOD BANK LAB ORDER WILLIAM [facility] [place] [address] * ABO/Rh Typing (12/23/2016 11:00 AM EDT) ABORH Type B Pos [facility] Blood specimen (specimen) 12/23/2016 11:00 AM EDT 12/23/2016 11:15 AM EDT Narrative Resulting Agency Comment Spec In Lab Pineda Montague MD BLOOD BANK LAB ORDER WILLIAM [facility] [place] [address] * APTT (12/23/2016 11:00 AM EDT) Partial Thromboplastin Time 26 25 - 35 sec [facility] Comment: The recommended therapeutic range for full dose, unfractionated heparin at [facility] is 80 ? 114 seconds. The use of the anti-Xa (heparin) level rather than the PTT is recommended for monitoring anticoagulation intensity in critically ill patients receiving unfractionated heparin by continuous IV infusion. Blood specimen (specimen) 12/23/2016 11:00 AM EDT 12/23/2016 11:20 AM EDT Narrative Resulting Agency Comment Spec In Lab Pineda Montague MD HEMATOLOGY ORDERABLE S Performing Organization Address [facility] Co de Phone Number [facility] [place] [address] * Prothrombin Time (12/23/2016 11:00 AM EDT) Prothrombin Time 13.4 12.0 - 15.0 sec [facility] Comment: An INR <2.0 indicates adequate procoagulant activity for hemostasis in most patients without underlying bleeding disorders, though the INR may not adequately reflect hemostatic capacity in patients with liver disease and synthetic impairment. The recommended target INR range for therapeutic anticoagulation is 2.0 ? 3.0 for most applications, though lower and higher ranges may be appropriate depending on clinical circumstances. International Normalization Ratio 1.0 0.9 - 1.1 [facility] Blood specimen (specimen) 12/23/2016 11:00 AM EDT 12/23/2016 11:20 AM EDT Narrative Resulting Agency Comment Spec In Lab Pineda Montague MD HEMATOLOGY ORDERABLE S Performing Organization Address [facility] Co de Phone Number [facility] [place] [address] * (ABNORMAL) Basic Metabolic Panel (non-fasting) (12/23/2016 11:00 AM EDT) Glucose 99 65 - 199 mg/dL [facility] Comment:Diabetes: >=200 mg/d L plus symptoms Blood Urea Nitrogen 21(H) 10 - 20 mg/dL [facility] Creatinine 1.52(H) 0.80 - 1.50 mg/dL [facility] Comment: Please note that the pediatric reference intervals supplied above were not validated at [facility]. Results from pediatric patients should be interpreted in conjunction to the patient's age, height and muscle mass. Sodium 142 135 - 145 mmol/L [facility] Potassium 4.5 3.5 - 5.0 mmol/L [facility] Comment: Please note: ??Patients with WBC >100,000 may have falsely elevated Potassium levels. ??For accurate Potassium quantification in these patients send serum separator tube (gold top) for subsequent determinations. ??Contact the Clinical Chemistry Laboratory if there are any questions. Chloride 104 98 - 107 mmol/L [facility] Carbon Dioxide 24 22 - 31 mmol/L [facility] Anion Gap 14 5 - 15 mmol/L [facility] Calcium 9.0 8.5 - 10.5 mg/dL [facility] Est Glomerular Filtration Rate 46(L) >=60 [facility] Comment: This estimated GFR (eGFR) [...] the following links into your internet browser. [email or web address] Blood specimen (specimen) 12/23/2016 11:00 AM EDT 12/23/2016 11:20 AM EDT Narrative Resulting Agency Comment Spec In Lab Pineda Montague MD CHEMISTRY ORDERABLES [facility] [place] [address] documented in this encounter Visit Diagnoses Diagnosis Primary osteoarthritis of left hip Primary localized osteoarthrosis, pelvic region and thigh documented in this encounter Care Teams Cnc Service Engineer Relationship Specialty Start Date End Date Duke Ramos MD [address] [place] [address] PCP - General Family Medicine 08/23/16 06/28/18 documented as of this encounter
--- OUTSIDE RECORDS SUMMARY | 2024-07-19 16:49 | XMS_ITS | Encounter Summary ---
Author Organization [facility] [place] [address] Care Team Providers Care Soil Sort Worker Name Role Phone Ivanna Hughes APRN Primary Care Provider [phone] Reason for Visit * Auth/Cert - Closed Specialty Diagnoses / Procedures Referred By Ugo t Referred To Contact Diagnoses LEFT INGUINAL HERNIA Procedures REPAIR INGUINAL HERNIA, 5 YR OR OLDER, REDUCIBLE Referral ID Status Reason Start Date Expiration Date Visits Re quested Visits Authorized [id number] Closed 1 1 Encounter Details Date Type Department Care Team (Late st Contact Info) Description 07/07/2015 3:20 PM EDT Anesthesia Event [place] [address] Roxane Wright MD [facility] [place] [address] Ilya Whitaker MD [facility] [place] [address] Anesthesia Record Procedure Summary Procedure Name Responsible Anesthesiologist Anesthesia Start Time Anesthesia Stop Time REPAIR INGUINAL HERNIA, 5 YR OR OLDER, REDUCIBLE (WRVU 7.96) (Left: Groin) Roxane Wright MD 07/07/15 1520 07/07/15 1712 Events Date Time Event Comment 07/07/2015 1454 1520 Start 1523 AN Verify 1523 An Start Data 1526 An Induction 1529 An Intubation 1530 Anesthesia Ready 1542 Procedure Start 1700 Extubation/LMA Out To Delete (skip) the Extubation event, click the X below. 1700 an stop data 1712 Stop Meds Name Total Midazolam 2 mg fentaNYL 100 mcg IV Lidocaine 40 mg Propofol 250 mg PHENYLephrine 320 mcg Ondansetron 4 mg ceFAZolin (ANCEF) 2g in dextrose 5% 50 m L 2 g lactated ringers infusion 1,000 mL 800 m L * Agents Name O2 Air N2O Sevoflurane (et) * Blood No blood administrations on file. Lines, Drains, and Airways Type Details Placement Removal Incision 06/07/14; abdomen; laparoscopic punctures (specify) (4 sites); 05/20/22 (LDA cleanup utility RA#[id number]); 1715 (LDA cleanup utility RA#[id number]) 06/07/14 0000 by Jazmín Mcmillan RN 05/20/22 1715 by Dougie Blackmon Incision 07/07/15; lower quadrant; horizontal; 05/20/22 (LDA cleanup utility RA#[id number]); 171 (LDA cleanup utility RA#[id number]) 07/07/15 0000 by Ledy Hicks RN 05/20/22 1715 by Dougie Blackmon (RETIRED) Peripheral IV Line - Single Lumen 07/07/15; 1356; metacarpal vein left (top of hand); nsoi-zow-cmpiyh catheter system; 20 gauge; bebe; intradermal injection; 07/07/15; 192307/07/15 1356 by Nidia Parra RN 07/07/151923 by Pat Dia RN Supraglottic Mask Ventilation: Ea sy (1); LMA Type: iGel; LMA Size: 4; Inserted by: Kerry; Removal Date: 07/07/15; Removal Time: 1700 07/07/15 1529 by Ilya Whitaker MD 07/07/15 1700 by Ilya Whitaker MD documented in this encounter Social History Tobacco Use Types Packs/Day Years Used Date Smoking Tobacco: Former Cigarettes Q uit: 05/28/1970 Smokeless Tobacco: Never Alcohol Use Standard Drinks/Week Comments No 0 (1 standard drink = 0.6 oz pur e alcohol) Sex and Gender Information Value Date Recorded Sex Assigned at Not on file Gender Identity Not on file Sexual Orientation Not on file documented as of this encounter OR Notes * Anesthesia Postprocedure Evaluation - Ilya Whitaker MD - 07/07/2015 5:21 PM EDT Patient: Shree Ortez Jr. Procedure(s) Performed: Procedure(s): REPAIR INGUINAL HERNIA, 5 YR OR OLDER, REDUCIBLE MODIFIER MESH,BARD SOFT MESH Actual Anesthetic: general Patient location: PACU Post-op pain: Adequate analgesia. No pain. Post-op nausea: no nausea or vomiting Last Vitals: Filed Vitals: 07/07/15 1706 BP: 170/95 Pulse: 64 Temp: 36.3 ??C (97.3 ??F) Resp: 16 Post-op cardiovascular and respiratory status: is stable Level of consciousness: arousable and responsive, slightly sleepy. Complications: no apparent complications and tolerated the procedure well Fluid Status: normal * Anesthesia Preprocedure Evaluation - Ilya Whitaker MD - 07/06/2015 6:25 PM EDT Images from the original note were not included. Pre-Anesthesia Evaluation for: Shree Ortez Jr. a 65 y.o. male. Procedure(s): REPAIR INGUINAL HERNIA, 5 YR OR OLDER, REDUCIBLE MODIFIER MESH,BARD SOFT MESH Patient Active Problem List Diagnosis ??? Dysphagia ??? Amputation of finger tip Past Medical History Diagnosis Date ??? Cancer of kidney Left ??? HTN (hypertension) Past Surgical History Procedure Laterality Date ??? Pro lap, radical nephrectomy 06/07/2014 @LAPAROSCOPY, RADICAL NEPHRECTOMY performed by Jarocho Jenkins MD at [facility] MAIN OR ??? Pro colonoscopy, diagnostic N/A 09/26/2014 COLONOSCOPY, DIAGNOSTIC performed by Nina Almaguer MD at [facility] ENDOSCOPY ??? Pro upper gi endoscopy, biopsy N/A 09/26/2014 EGD WITH BIOPSY performed by Nina Almaguer MD at [facility] ENDOSCOPY ??? Appendectomy 1972 ??? Total nephrectomy Left 06/07/14 ??? Cyst removal History Substance Use Topics ??? Smoking status: Former Smoker Quit date: 05/28/1970 ??? Smokeless tobacco: Never Used ??? Alcohol Use: No History Drug Use No No Known Allergies Medications: MAR and/or home medications have been reviewed. Physical Exam: There were no vitals filed for this visit. There is no weight on file to calculate BMI. Airway Assessment: Mallampati: I TM distance: >3 FB Neck ROM: full Full landaverde over chin Cardiovascular Assessment: Pulmonary Assessment: Dental Assessment: [facility] Assessment: Anesthesia Plan: ASA 2 general, with a(n) intravenous induction This is a 65 y.o. male here for the following Procedure(s): REPAIR INGUINAL HERNIA, 5 YR OR OLDER, REDUCIBLE MODIFIER MESH,BARD SOFT MESH The patient's past medical history, past surgical history, medications, and allergies were reviewedand notable for kidney cancer s/p nephrectomy, HTN and symptoms of RAÚL but has not used CPAP Patient's documented history was negative for seizures, CVA, cardiopulmonary disease, hepatic disease or coagulopathy. There is no evidence of any recent URI or UTI symptoms, fevers/chills, or other indication of infection. EXERCISE TOLERANCE: good LABS: Lab Results Component Value Date HGB 12.1* 06/08/2014 PLATELET 198 06/08/2014 INR 1.1 05/19/2011 NA 144 12/15/2014 K 4.7 12/15/2014 CREATININE 1.56* 12/15/2014 TYPE AND SCREEN: Lab Results Component Value Date ABORH B Pos 05/19/2011 ALLERGIES: No Known Allergies NPO STATUS: appropriate ANESTHETIC HISTORY: Radical nephrectomy in 06/05 for kidney tumor. Grade 1 view with MAC blade ANESTHETIC PLAN: GA with ETT/LMA Standard ASA monitoring Adequate IV access CONSENT: The patient was informed of the risks, benefits and alternatives of anesthesia. These risks included, but were not limited to, post-operative nausea and/or vomiting, pain, sore throat, dental/lip trauma, and other rare but serious complications such as major organ damage, awareness, severe allergicreactions, position-related nerve injuries, and need blood transfusions. All questions sought and answered. Consent was signed and placed in chart. ILYA WHITAKER MD 07/06/2015 Region - Other Informed Consent: Anesthetic plan and risks discussed with patient. Plan discussed with resident. [facility]. Assessment: documented in this encounter Plan of Treatment Scheduled Procedures Name Priority Associated Diagnoses Date/Ti me EGD, UPPER GI ENDOSCOPY (WRV U 2.09) Esophageal dysphagia Encounter for colorectal cancer screening COLONOSCOPY, DIAGNOSTIC (WRV U 3.26) Esophageal dysphagia Encounter for colorectal cancer screening documented as of this encounter Visit Diagnoses Not on filedocumented in this encounter Administered Medications Inactive Administered Medications - up to 3 most recent administrations Medication Order MAR Action Action Date Dose Rate Site ceFAZolin (ANCEF) 2g in dextrose 5% 50 mL 2 g, Intravenous, EVERY 3 HOURS, 1 dose, First dose on Fri07/07/15 at 1400, Administer over 30 Minutes, Intra-Operative (Intra-Procedure), Indication for (Active or Suspected): Prophylaxis Given 07/07/2015 3:30 PM EDT 2 g fentaNYL 50 mcg/mL multi-dose injection PRN, Starting on Fri07/07/15 at 1536, Until Fri07/07/15 at 1915, Pain, Anesthesia Intra-op, Routine Given 07/07/2015 4:34 PM EDT 25 mcg Given 07/07/2015 4:31 PM EDT 25 mcg Given 07/07/2015 3:36 PM EDT 50 mcg lactated ringers infusion 1,000 mL 1,000 mL, at 100 mL/hr, Intravenous, CONTINUOUS, Starting on Fri07/07/15 at 1400, Until Fri07/07/15 at 1924, Day of Surgery (Day of Procedure) New Bag 07/07/2015 3:20 PM EDT New Bag 07/07/2015 1:56 PM EDT 1,000 mLs 100 mL/hr lidocaine (PF) (XYLOCAINE) 100 mg/5 mL (2 %) injection PRN, Starting on Fri07/07/15 at 1531, Until Fri07/07/15 at 1915, Anesthesia Intra-op, Routine Given 07/07/2015 3:26 PM EDT 40 mg midazolam (PF) (VERSED) 1 mg/mL multi-dose injection PRN, Starting on Fri07/07/15 at 1520, Until Fri07/07/15 at 1915, Sleep, Anesthesia Intra-op, Routine Given 07/07/2015 3:20 PM EDT 2 mg ondansetron (ZOFRAN) injection PRN, Starting on Fri07/07/15 at 1640, Until Fri07/07/15 at 1915, Nausea, Anesthesia Intra-op, Routine Given 07/07/2015 4:40 PM EDT 4 mg PHENYLephrine HCl in NS (PF) (NOE-SYNEPHRINE) 0.8 mg/10 mL (80 mcg/mL) multi-dose injection Syrg PRN, Starting on Fri07/07/15 at 1543, Until Fri07/07/15 at 1915, Anesthesia Intra-op, Routine Given 07/07/2015 4:23 PM EDT 80 mcg Given 07/07/2015 4:13 PM EDT 80 mcg Given 07/07/2015 3:55 PM EDT 80 mcg propofol (DIPRIVAN) 10 mg/mL bolus injection (Anesthesia) PRN, Starting on Fri07/07/15 at 1526, Until Fri07/07/15 at 191, Anesthesia Intra-op Given 07/07/2015 3:31 PM EDT 50 mg Given 07/07/2015 3:26 PM EDT 200 mg documented in this encounter Care Teams Soil Sort Worker Relationship Specialty Start Date End Date Ivanna Hughes, VENEER LAYER PCP - General 05/19/11 09/10/15 documented as of this encounter
--- OUTSIDE RECORDS SUMMARY | 2024-07-19 16:49 | XMS_ITS | Encounter Summary ---
Author Organization [facility] Address [facility] [address] [place] [address] Care Team Providers Care Install And Repair Technician Name Role Phone Duke Ramos MD Primary Care Provider [phone] Reason for Visit * Reason Comments Left Hip Pain pre-op visit for LEF T ANT JOHN Encounter Details Date Type Department Care Team (Latest Contact Info) Description 12/23/2016 2:00 PM EDT [place] [phone] Geovani Reyna MD [facility] [place] [address] Preop examination; Primary osteoarthritis of left hip; Essential hypertension; Chronic renal insufficiency, stage 3 (moderate); Absent kidney, acquired Social History Tobacco Use Types Packs/Day Years [...] Sign Reading Time Taken Comments Blood Pressure 145/92 12/23/2016 2:02 PM EDT Pulse 91 12/23/2016 2:02 PM EDT Temperature - - Respiratory Rate - - Oxygen Saturation 98% 12/23/2016 2:0 2 PM EDT Inhaled Oxygen Concentration - - Weight 98.9 kg (218 lb) 12/23/2016 2:02 PM EDT verbal from other appt Height 172.7 cm (5' 8) 12/23/2016 2:02 PM EDT verbal from other appt Body Mass Index 33.15 12/23/2016 2:02 PM EDT documented in this encounter H&P Notes * Geovani Reyna MD - 12/23/2016 2:00 PM EDT Images from the original note were not included. CC: Shree Ortez Jr. is a 66 y.o. male new patient to the perioperative clinic with the followingproblems and medications that is being seen in the clinic for consultation at the request of his surgeon Dr. Pineda Montague for preoperative risk stratification and management recommendations in anticipation of left total hip arthroplasty for symptomatic OA. HPI - Pain - Location - Left hip Quality - aching, Onset - gradual, Duration - several months, Intensity - moderate to severe, Aggravating factors - standing, walking, stepping, bending, Alleviating factors - APAP, Associated - Had nephrectomy for cancer and there was no spread. Patient Active Problem List Diagnosis Code ??? 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 Dysphagia R13.10 ??? Osteoarthritis of LEFT hip M16.9 ??? 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 Primary osteoarthritis of left hip M16.12 Current Outpatient Prescriptions Medication Sig Dispense Refill ??? albuterol (PROVENTIL HFA;VENTOLIN HFA;PROAIR) 90 mcg/actuation HFA Aerosol Inhaler Inhale 2 puffs into the lungs every 4 hours as needed for Wheezing. Use with spacer ??? acetaminophen (TYLENOL) 500 mg Tablet Take 2 tablets by mouth every 8 hours as needed for Pain. ??? terazosin (HYTRIN) 1 mg capsule Take 1 mg by mouth nightly. No current facility-administered medications for this visit. Social History Occupational History ??? Not on file. Social History Main Topics ??? Smoking status: Former Smoker Quit date: 05/28/1970 ??? Smokeless tobacco: Never Used ??? Alcohol use No ??? Drug use: No ??? Sexual activity: Not on file Family History Problem Relation Age of Onset ??? Cancer Sister Review of Systems: Review of Systems Constitutional: Negative for chills, diaphoresis and fever. HENT: Positive for trouble swallowing. Negative for nosebleeds, postnasal drip and sore throat. Has esophageal spasms and that causes occasional swallowing problem and choking. Eyes: Negative for photophobia and visual disturbance. Respiratory: Positive for choking. Negative for shortness of breath and wheezing. Occasional SOB and wheezing is relieved with albuterol. Goes 2-3 days with out it. Cardiovascular: Negative for chest pain, palpitations and leg swelling. Gastrointestinal: Negative for abdominal pain, anal bleeding and blood in stool. Endocrine: Negative for polydipsia and polyphagia. Genitourinary: Positive for difficulty urinating, frequency and urgency. Negative for dysuria, flank pain and hematuria. 2-3 times a night nocturia. Musculoskeletal: Positive for gait problem. Negative for joint swelling. Skin: Negative for pallor and rash. Allergic/Immunologic: Negative for environmental allergies and immunocompromised state. Neurological: Negative for seizures, syncope, weakness and light-headedness. Hematological: Negative for adenopathy. Does not bruise/bleed easily. Psychiatric/Behavioral: Negative for confusion, decreased concentration and dysphoric mood. Allergies: No Known Allergies Physical Exam: Last Set of Vitals and Range over past 24 hours: Last value Range last 24 hrs Temperature Temp: -- Heart Rate Heart Rate: 91 Heart Rate: [91-97] Blood Pressure BP: (!) 145/92 BP: (145)/(92) Respiratory Rate Resp: -- SpO2 SpO2: 98 % SpO2: [98 %] Body mass index is 33.15 kg/(m^2). Height: 172.7 cm (5' 8) (verbal from other appt) Notes checking his BP at home - he was started on lisinopril at 20mg daily and he felt light headedand that persisted despite cutting it in half. Has given up canned foods. Physical Exam Constitutional: He is oriented to person, place, and time. He appears well- developed. No distress. HENT: Head: Normocephalic and atraumatic. Mouth/Throat: Oropharynx is clear and moist. No oropharyngeal exudate. Eyes: Conjunctivae and EOM are normal. Right eye exhibits no discharge. Left eye exhibits no discharge. No scleral icterus. Neck: Neck supple. No tracheal deviation present. Cardiovascular: Normal rate, regular rhythm and normal heart sounds. Exam reveals no gallop and no friction rub. No murmur heard. Pulmonary/Chest: Effort normal and breath sounds normal. No stridor. No respiratory distress. He has no wheezes. He has no rales. Abdominal: Soft. Bowel sounds are normal. He exhibits no mass. There is no tenderness. There is no rebound and no guarding. Musculoskeletal: He exhibits no edema or deformity. Able to flex his hip on left to about 90 with pain, no drift on Left LE. Neutral position is externally rotated and internal rotation is severely restricted. Antalgic gait with LLE in abduction and externally rotated, has shortened stride and stance phase. Neurological: He is alert and oriented to person, place, and time. No cranial nerve deficit. He exhibits normal muscle tone. Coordination normal. Skin: Skin is warm and dry. He is not diaphoretic. No pallor. Psychiatric: He has a normal mood and affect. His behavior is normal. Judgment and thought content normal. Lab Results Component Value Date WBC 5.2 12/23/2016 RBC 4.49 (L) 12/23/2016 HGB 13.9 12/23/2016 HCT 40.6 12/23/2016 MCV 90.4 12/23/2016 MCH 31.0 12/23/2016 MCHC 34.2 12/23/2016 PLATELET 199 12/23/2016 RDWCV 12.8 12/23/2016 Lab Results Component Value Date NA 142 12/23/2016 K 4.5 12/23/2016 CL 104 12/23/2016 CO2 24 12/23/2016 BUN 21 (H) 12/23/2016 CREATININE 1.52 (H) 12/23/2016 GLUCOSE 99 12/23/2016 CALCIUM 9.0 12/23/2016 Lab Results Component Value Date PT 13.4 12/23/2016 INR 1.0 12/23/2016 PTT 26 12/23/2016 Estimated Creatinine Clearance: 54.5 mL/min (based on Cr of 1.52). EKG (image reviewed): normal EKG, normal sinus rhythm. A/P 1. Preop examination 2. Primary osteoarthritis of left hip 3. Essential hypertension 4. Chronic renal insufficiency, stage 3 (moderate) 5. Absent kidney, acquired We reviewed DASH diet and TLC to help with BP. We discussed increased Hytrin also as an option. He would like to defer that for now and considering his creatinine is better today compared to September and his EKG without LVH, it is reasonable to allow TLC to help but I have emphasized importance of BP control to protect his solitary kidney. He has tried what seems to be a CCB for his esophageal dysphagia but stopped that due to concern that it increased his BP. I explained potential side effects would be low BP, leg swelling and constipation. Major Risk Factor per the Revised Cardiac Risk Index (Bold if present) - There is no history of CAD, CHF, CVA or TIA, DM2 on insulin, or a Creatinine >2 Risk diagnosis for MACE (major adverse cardiovascular event = Myocardial infarction, pulmonary edema, ventricular fibrillation, primary cardiac arrest, or complete heart block.) : Low <1% . The patient describes a functional status of equal to 4METs and more (does his home care) and based on theACC/AHA 2014 guideline no further cardiovascular testing is indicated. ARISCAT/CANET Score - estimates the risk of postoperative pulmonary complications as being low ~3.5%. STOP BANG Score - intermediate risk for RAÚL. Per the ACS NSQIP calculator I estimated the following. Risk of POUR is high and use of Hytrin at current dose as well as potential for increasing that dose was explained. RECCO: AVOID NSAID (single kidney with elevated creatinine) Continue prn albuterol. Hold Hytrin if SBP<100 documented in this encounter Plan of Treatment Scheduled Procedures Name Priority Associated Diagnoses Date/Ti me EGD, UPPER GI ENDOSCOPY (WRV U 2.09) Esophageal dysphagia Encounter for colorectal cancer screening COLONOSCOPY, DIAGNOSTIC (WRV U 3.26) Esophageal dysphagia Encounter for colorectal cancer screening documented as of this encounter Visit Diagnoses Diagnosis Preop examination Preoperative examination, unspecified Primary osteoarthritis of left hip Primary localized osteoarthrosis, pelvic region and thigh Essential hypertension Unspecified essential hypertension Chronic renal insufficiency, stage 3 (moderate) Absent kidney, acquired Acquired absence of kidney documented in this encounter Care Teams Install And Repair Technician Relationship Specialty Start Date End Date Duke Ramos MD [address] [place] [address] PCP - General Family Medicine 08/23/16 06/28/18 documented as of this encounter
--- OUTSIDE RECORDS SUMMARY | 2024-07-19 16:49 | XMS_ITS | Encounter Summary ---
Author Organization [facility] [place] [address] Care Team Providers Care Dross Skimmer Name Role Phone Duke Ramos MD Primary Care Provider [phone] Reason for Visit * Auth/Cert Specialty Diagnoses / Procedures Referred By Ugo maynard Referred To Contact Diagnoses Primary osteoarthritis of left hip left hip osteoarthritis Procedures PRO TOTAL HIP ARTHROPLASTY @TOTAL HIP ARTHROPLASTY, ANTERIOR APPROACH (WRVU 20.72) MODIFIER CORAIL FEMORAL STEM DEPUY MODIFIER PINNACLE ACETABULUM DEPUY Referral ID Status Reason Start Date Expiration Date Visits Re quested Visits Authorized [id number] 1 1 Encounter Details Date Type Department Care Team (Late st Contact Info) Description 01/15/2017 7:38 AM EDT Anesthesia Event [place] [phone] Lisa Avila MD [facility] [place] [address] Jimi Alberto MD [facility] [place] [address] Anesthesia Record Procedure Summary Procedure Name Responsible Anesthesiologist Anesthesia Start Time Anesthesia Stop Time TOTAL HIP ARTHROPLASTY, ANTERIOR APPROACH (WRVU 19.6) (Left: Hip) Lisa Avila MD 01/15/17 0738 01/15/17 1057 Events Date Time Event Comment 01/15/2017 0659 0738 AN Verify 0738 Start 0740 An Start Data 0749 Quick Note Spinal attempte d unsuccessfully, patient repositioned to back and GA with ETT performed. 0801 An Induction 0802 An Intubation 0804 Anesthesia Ready 0824 Procedure Start 0936 Break/Relief In DAVID PATEL, LOCAL TANKER TRUCK DRIVER 0950 Break/Relief Out 1037 Procedure Stop 1048 Extubation/LMA Out Patient e xtubated when awake, airway clear, +ETCO2, FM oxygen applied, VSS. 1050 an stop data 1057 Recovery or ICU Handoff Stephanie ent care was transferred to the destination unit staff after review of the patient's medical history, current anesthetic/surgical status and plan, according to the Provider Handoff Checklist. 1057 Stop Meds Name Total fentaNYL 100 mcg Propofol 200 mg IV Lidocaine 100 mg Rocuronium 60 mg PHENYLephrine 160 mcg ePHEDrine 10 mg Ondansetron 4 mg Dexamethasone 8 mg Neostigmine 3 mg Glycopyrrolate 0.4 mg ceFAZolin (ANCEF) 2g in dextrose 5% 100 mL 2 g tranexamic acid (CYKLOKAPRON) 1,430 mg i n sodium chloride 0.9% 114.3 mL 1,430 mg HYDROmorphone 0.6 mg lactated ringers infusion 1,000 mL 700 m L * Agents Name O2 Air N2O Sevoflurane (et) * Blood No blood administrations on file. Lines, Drains, and Airways Type Details Placement Removal Incision 06/07/14; abdomen; laparoscopic punctures (specify) (4 sites); 05/20/22 (LDA cleanup utility RA#[id number]); 1715 (LDA cleanup utility RA#[id number]) 06/07/14 0000 by aJzmín Mcmillan RN 05/20/22 1715 by Dougie Blackmon Incision 07/07/15; lower quadrant; horizontal; 05/20/22 (LDA cleanup utility RA#[id number]); 1715 (LDA cleanup utility RA#[id number]) 07/07/15 0000 by Ledy Hicks RN 05/20/22 1715 by Dougie Blackmon (RETIRED) Peripheral IV Line - Single Lumen 01/15/17; 0637; metacarpal vein (top of hand), right; 1 in length; Amina HUERTA; distraction, intradermal injection; 0; 01/17/17; 1306 01/15/17 0637 by Nay Santana RN 01/17/17 1306 by Patti Boo, RN ETT Mask Ventilation: Fernando mcmahon (1); ETT Type: Cuffed, Oral; ETT Size: 7.5 mm; Mac Blade: 4; Notes: Asleep, Pre-O2, Cricoid Pressure, Stylette; Attempts: 1; Laryngoscopy Grade: 1; ETT Placement Verified By: Auscultation, Capnometry, Visual; Secured at Teeth: 23 cm; Inserted by: Mahsa Buckley crna; Removal Date: 01/15/17; Removal Time: 1048 01/15/17 0802 by Mahsa Buckley, CARSON 01/15/17 1048 by Mahsa Buckley CRNA Incision 01/15/17; 0825; hip; 05/20/22 (LDA cleanup utility RA#[id number]); 1715 (LDA cleanup utility RA#[id number]) 01/15/17 0825 by Kaycee Abraham RN 05/20/22 1715 by Dougie Blackmon documented in this encounter Social History Tobacco [...] OR Notes * Anesthesia Postprocedure Evaluation - Lisa Avila MD - 01/16/2017 7:24 AM EDT [facility] [place]esthesiology Post-procedure Note Patient: Shree Ortez Jr. Procedure Summary Date Anesthesia Start Anesthesia Stop Room / Location 01/15/17 0738 [facility] / [facility] MAIN OR Procedure Diagnosis Surgeon Responsible Provider @TOTAL HIP ARTHROPLASTY, ANTERIOR APPROACH (WRVU 20.72) (Left Hip); MODIFIER CORAIL FEMORAL STEM DEPUY (Left Hip); MODIFIER PINNACLE ACETABULUM DEPUY (Left Hip); HIP INTRAOP RADIOLOGIC EXAMINATION, UNILATERAL, W PELVIS; 4+ VIEWS (WRVU 0.27) (Left Hip) Primary osteoarthritis of left hip (left hip osteoarthritis) Pineda Montague MD Clark, Jeffrey A, MD All Anesthesia Providers: Anesthesiologist: Lisa Avila MD LOCAL TANKER TRUCK DRIVER: Mahsa Buckley CRNA Last (1hr) Vitals: BP Temp Pulse Resp SpO2 Patient Location: PACU/[facility] Level of Consciousness: Awake and Alert Pain Management: Satisfactory Analgesia PONV: None Cardiovascular Status: At Baseline and Hemodynamically Stable Respiratory Status: At Baseline and Room Air Postoperative Fluid Status: Intravascular EUvolemia Possible Anesthetic Complications: NONE apparent at time of evaluation Final Primary Anesthesia Type: General (The anesthetic type performed was the same as planned.) Comments: LISA AVILA MD * Anesthesia Procedure Notes - Mahsa Buckley CRNA - 01/15/2017 8:28 AM EDT Associated Order(s): ANE NEURAXIAL UPDATED Procedure: Neuraxial Block Type: Spinal The patient was greeted. The sedation plan, its benefits, risks and alternatives were discussed with the patient. The patient has consented to the procedure. The medical history and chart were reviewed. The timeout was performed. Start time: 01/15/2017 7:43 AM End time: 01/15/2017 7:48 AM Patient Location: Operating Room Patient Prep Prep: Hand Hygiene, Hat, Mask, Sterile Gloves, Chlorhexidine and Patient Draped Skin Anesthetic Lidocaine 1% 4 ml Procedure Technique Level of needle insertion: L4-5 and L3-4 Needle approach: midline and paramedian Number of attempts: 3 Events/Notes Events: Unable to find space, aborted after 3 attempts. Patient tolerated well. GA with ETT to be performed. Resident/LOCAL TANKER TRUCK DRIVER: MAHSA BUCKLEY Second Resident/LOCAL TANKER TRUCK DRIVER: Fellow: Attending Physician: LISA AVILA ~~~~~~~~~~~~~~~~~~~~~~~~~~~~~~~~~~~~~~~~~~~~~~~~~~~~~~~~~~~~ * Anesthesia Preprocedure Evaluation - Lisa Avila MD - 01/15/2017 6:58 AM EDT Pre-Anesthesia Evaluation for: Shree Ortez Jr. a 66 y.o. male. Procedure(s): @TOTAL HIP ARTHROPLASTY, ANTERIOR APPROACH (WRVU 20.72) MODIFIER CORAIL FEMORAL STEM DEPUY MODIFIER PINNACLE ACETABULUM DEPUY HIP INTRAOP RADIOLOGIC EXAMINATION, UNILATERAL, W PELVIS; 4+ VIEWS (WRVU 0.27) Patient Active Problem List Diagnosis ??? Primary osteoarthritis of left hip ??? Osteoarthritis of LEFT hip ??? Osteoarthritis of left shoulder ??? Dysphagia ??? Amputation of finger tip Past Medical History: Diagnosis Date ??? Cancer of kidney Left ??? HTN (hypertension) Past Surgical History: Procedure Laterality Date ??? APPENDECTOMY 1972 ??? CYST REMOVAL ??? PRO COLONOSCOPY, DIAGNOSTIC N/A 09/26/2014 COLONOSCOPY, DIAGNOSTIC performed by Nina Almaguer MD at [facility] ENDOSCOPY ??? PRO LAP, RADICAL NEPHRECTOMY 06/07/2014 @LAPAROSCOPY, RADICAL NEPHRECTOMY performed by Jarocho Jenkins MD at [facility] MAIN OR ??? PRO REPAIR ING HERNIA, 5+Y/O, REDUCIBL Left 07/07/2015 REPAIR INGUINAL HERNIA, 5 YR OR OLDER, REDUCIBLE performed by Flash Rivas MD at [facility] MAIN OR ??? PRO UPPER GI ENDOSCOPY, BIOPSY N/A 09/26/2014 EGD WITH BIOPSY performed by Nina Almaguer MD at [facility] ENDOSCOPY ??? TOTAL NEPHRECTOMY Left 06/07/14 Social History Substance Use Topics ??? Smoking status: Former Smoker Quit date: 05/28/1970 ??? Smokeless tobacco: Never Used ??? Alcohol use No History Drug Use No No Known Allergies Medications: MAR and/or home medications have been reviewed. Physical Exam: Vitals: 01/15/17 0627 BP: (!) 151/108 Pulse: 78 Resp: 16 Temp: 36.8 ??C (98.2 ??F) Body mass index is 33.25 kg/(m^2). Weight - Scale: 99.2 kg (218 lb 11.1 oz) Airway Assessment: Mallampati: II TM distance: >3 FB Neck ROM: full Cardiovascular Assessment: Pulmonary Assessment: Dental Assessment: Misc Assessment: Anesthesia Plan: ASA 2 spinal, with a(n) intravenous induction Region - Other Informed Consent: Anesthetic plan and risks discussed with patient. Plan discussed with LOCAL TANKER TRUCK DRIVER. PAT Staff Note documented in this encounter Plan of Treatment Scheduled Procedures Name Priority Associated Diagnoses Date/Ti me EGD, UPPER GI ENDOSCOPY (WRV U 2.09) Esophageal dysphagia Encounter for colorectal cancer screening COLONOSCOPY, DIAGNOSTIC (WRV U 3.26) Esophageal dysphagia Encounter for colorectal cancer screening documented as of this encounter Procedures Procedure Name Priority Date/Time Associated Diagnosis Comments ANE NEURAXIAL UPDATED Routine 01/15/2017 8:30 AM EDT Procedure Note - Mahsa Buckley CRNA - 01/15/2017 8:28 AM EDTThis note is in progress. Procedure: Neuraxial Block Type: Spinal The patient was greeted. The sedation plan, its benefits, risks andalternatives were discussed with the patient. The patient has consentedto the procedure. The medical history and chart were reviewed. Thetimeout was performed. Start time: 01/15/2017 7:43 AM End time: 01/15/2017 7:48 AM Patient Location: Operating Room Patient Prep Prep: Hand Hygiene, Hat, Mask, Sterile Gloves, Chlorhexidine and PatientDraped Skin Anesthetic Lidocaine 1% 4 ml Procedure Technique Level of needle insertion: L4-5 and L3-4 Needle approach: midline and paramedian Number of attempts: 3 Events/Notes Events: Unable to find space, aborted after 3 attempts. Patienttolerated well. GA with ETT to be performed. Resident/LOCAL TANKER TRUCK DRIVER: MAHSA BUCKLEY Second Resident/LOCAL TANKER TRUCK DRIVER: Fellow: Attending Physician: LISA AVILA ~~~~~~~~~~~~~~~~~~~~~~~~~~~~~~~~~~~~~~~~~~~~~~~~~~~~~~~~~~~~ documented in this encounter Visit Diagnoses Not on filedocumented in this encounter Administered Medications Inactive Administered Medications - up to 3 most recent administrations Medication Order MAR Action Action Date Dose Rate Site ceFAZolin (ANCEF) 2g in dextrose 5% 100 mL 2 g, Intravenous, EVERY 3 HOURS, 1 dose, First dose on Fri01/15/17 at 0630, Administer over 30 Minutes, Redose after 3 hours., Intra-Operative (Intra-Procedure), Indication for (Active or Suspected): Prophylaxis Given 01/15/2017 8:07 AM EDT 2 g dexamethasone (DECADRON) injection PRN, Starting on Fri01/15/17 at 0813, Until Fri01/15/17 at 1057, Anesthesia Intra-op, Routine Given 01/15/2017 8:13 AM EDT 8 mg ePHEDrine 5 mg/mL multi-dose injection PRN, Starting on Fri01/15/17 at 0903, Until Fri01/15/17 at 1057, Anesthesia Intra-op, Routine Given 01/15/2017 9:25 AM EDT 5 mg Given 01/15/2017 9:03 AM EDT 5 mg fentaNYL 50 mcg/mL multi-dose injection Intravenous, PRN, Starting on Fri01/15/17 at 0821, Until Fri01/15/17 at 1057, Pain, Anesthesia Intra-op, Routine Given 01/15/2017 8:32 AM EDT 50 mcg Given 01/15/2017 8:21 AM EDT 50 mcg glycopyrrolate (ROBINUL) multi-dose injection PRN, Starting on Fri01/15/17 at 1015, Until Fri01/15/17 at 1057, Anesthesia Intra-op, Routine Given 01/15/2017 10:15 AM EDT 0.4 mg HYDROmorphone (DILAUDID) injection PRN, Starting on Fri01/15/17 at 0838, Until Fri01/15/17 at 1057, Pain, Anesthesia Intra-op, Routine Given 01/15/2017 9:18 AM EDT 0.2 mg Given 01/15/2017 8:38 AM EDT 0.4 mg lactated ringers infusion 1,000 mL 1,000 mL, at 100 mL/hr, Intravenous, CONTINUOUS, Starting on Fri01/15/17 at 0800, Until Fri01/15/17 at 1238, Day of Surgery (Day of Procedure) New Bag 01/15/2017 7:40 AM EDT New Bag 01/15/2017 6:37 AM EDT 1,000 mLs 100 mL/hr lidocaine (PF) (XYLOCAINE) 100 mg/5 mL (2 %) injection PRN, Starting on Fri01/15/17 at 0801, Until Fri01/15/17 at 1057, Anesthesia Intra-op, Routine Given 01/15/2017 8:01 AM EDT 100 mg neostigmine (PROSTIGMINE) multi-dose injection PRN, Starting on Fri01/15/17 at 1015, Until Fri01/15/17 at 1057, Anesthesia Intra-op, Routine Given 01/15/2017 10:15 AM EDT 3 mg ondansetron (ZOFRAN) injection PRN, Starting on Fri01/15/17 at 1021, Until Fri01/15/17 at 1057, Nausea, Anesthesia Intra-op, Routine Given 01/15/2017 10:21 AM EDT 4 mg PHENYLephrine HCl in NS (PF) (NOE-SYNEPHRINE) 0.8 mg/10 mL (80 mcg/mL) multi-dose injection Syrg PRN, Starting on Fri01/15/17 at 0857, Until Fri01/15/17 at 1057, Anesthesia Intra-op, Routine Given 01/15/2017 9:01 AM EDT 80 mcg Given 01/15/2017 8:57 AM EDT 80 mcg propofol (DIPRIVAN) 10 mg/mL bolus injection (Anesthesia) Intravenous, PRN, Starting on Fri01/15/17 at 0801, Until Fri01/15/17 at 1057, Anesthesia Intra-op Given 01/15/2017 8:01 AM EDT 200 mg rocuronium (ZEMURON) multi-dose injection PRN, Starting on Fri01/15/17 at 0802, Until Fri01/15/17 at 1057, Anesthesia Intra-op, Routine Given 01/15/2017 9:30 AM EDT 10 mg Given 01/15/2017 8:02 AM EDT 50 mg tranexamic acid (CYKLOKAPRON) 1,430 mg in sodium chloride 0.9% 114.3 mL 1,430 mg (rounded from 1,429.5 mg = [...] , Day of Surgery (Day of Procedure) New Bag 01/15/2017 8:07 AM EDT 1,430 mg documented in this encounter Care Teams Dross Skimmer Relationship Specialty Start Date End Date Duke Ramos MD [address] [place] [address] PCP - General Family Medicine 08/23/16 06/28/18 documented as of this encounter
--- OUTSIDE RECORDS SUMMARY | 2024-07-19 16:49 | XMS_ITS | Encounter Summary ---
[place] [address] Care Team Providers Care Propulsion Machinery Service Engineer Name Role Phone Unavailable Primary Care Provider Unavailabl e Reason for Referral * Diagnostic Test (Routine) - Closed Specialty Diagnoses / Procedures Referred By Contlesli t Referred To Contact Radiology Diagnoses History of kidney cancer Procedures CT Abdomen wwo Contrast Jarocho Jenkins MD [address] [facility] [place] [address] Referral ID Status Reason Start Date Expiration Date V isits Requested Visits Authorized [id number] Closed Specialty Service Requested 07/15/2016 07/15/2017 1 1 Encounter Details Date Type Department Care Team (Late st Contact Info) Description 07/15/2016 [place] [address] Jarocho Jenkins MD [address] [place] [id number] History of kidney cancer Social History Tobacco [...] of this encounter Results * CT Abdomen wwo [...] disease. Stable appearanceright kidney. Jarocho Jenkins MD [facility] CT ORDERABLES * XR Chest PA & Lateral (Generic) (10/22/2016 12:23 PM EST) Anatomical Region Laterality Modality Chest N/A Digital Radiogra phy Impressions 10/22/2016 12:49 PM EST No pulmonary metastases identified. Narrative 10/22/2016 12:49 PM EST EXAMINATION: XR CHEST PA AND LATERAL (GENERIC) CLINICAL HISTORY: surveillance rcc TECHNIQUE: PA and lateral views of the chest. ? COMPARISON: 12/15/2014. FINDINGS: The lungs appear clear. The cardiomediastinal silhouette is unchanged. The kalpana, pulmonary vessels, and pleura are within normal limits. No interval osseous findings are seen. Procedure Note Beverly De Guzman MD - 10/22/2016 EXAMINATION: XR CHEST PA AND LATERAL (GENERIC) CLINICAL HISTORY: surveillance rcc TECHNIQUE: PA and lateral views of the chest. COMPARISON: 12/15/2014. FINDINGS: The lungs appear clear. The cardiomediastinal silhouette isunchanged. The kalpana, pulmonary vessels, and pleura are within normal limits. Nointerval osseous findings are seen. IMPRESSION No pulmonary metastases identified. Jarocho Jenkins MD [facility] DX ORDERABLES * (ABNORMAL) Comprehensive metabolic panel (non-fasting) (10/22/2016 12:14 PM EST) Glucose 128 65 - 199 mg/dL [facility] Comment:Diabetes: >=200 mg/d L plus symptoms Blood Urea Nitrogen 25(H) 10 - 20 mg/dL [facility] Creatinine 1.72(H) 0.80 - 1.50 mg/dL [facility] Comment: Please note that the pediatric reference intervals supplied above were not validated at [facility]. Results from pediatric patients should be interpreted in conjunction to the patient's age, height and muscle mass. Sodium 139 135 - 145 mmol/L [facility] Potassium 4.8 3.5 - 5.0 mmol/L [facility] Comment: Please note: ??Patients with WBC >100,000 may have falsely elevated Potassium levels. ??For accurate Potassium quantification in these patients send serum separator tube (gold top) for subsequent determinations. ??Contact the Clinical Chemistry Laboratory if there are any questions. Chloride 103 98 - 107 mmol/L [facility] Carbon Dioxide 24 22 - 31 mmol/L [facility] Anion Gap 12 5 - 15 mmol/L [facility] Calcium 9.0 8.5 - 10.5 mg/dL [facility] Protein, Total 7.0 6.1 - 8.0 gm/dL [facility] Albumin 4.1 3.2 - 5.2 gm/dL [facility] Aspartate Aminotransferase 30 0 - 39 unit/L [facility] Alanine Aminotransferase 47 0 - 55 unit/L [facility] Alkaline Phosphatase 121(H) 40 - 120 unit/L [facility] Bilirubin, Total 0.3 0.2 - 1.3 mg/dL [facility] Bilirubin, Direct 0.1 0.0 - 0.3 mg/dL [facility] Est Glomerular Filtration Rate 40(L) >=60 [facility] Comment: This estimated GFR [...] the following links into your internet browser. [email or web address] Blood specimen (specimen) 10/22/2016 12:14 PM EST 10/22/2016 12:19 PM EST Narrative Resulting Agency Comment Spec In Lab Jarocho Jenkins MD CHEMISTRY ORDERABLES Performing Organization Address City/State/[facility] [place] [address] documented in this encounter Visit Diagnoses Diagnosis History of kidney cancer Personal history of malignant neoplasm of kidney History of kidney cancer Personal history of malignant neoplasm of kidney History of kidney cancer Personal history of malignant neoplasm of kidney documented in this encounter
--- OUTSIDE RECORDS SUMMARY | 2024-07-19 16:49 | XMS_ITS | Encounter Summary ---
Author Organization [facility] Address [facility] [address] [place] [address] Care Team Providers Care Braided Band Assembler Name Role Phone Ivanna Hughes APRN Primary Care Provider [phone] Reason for Visit * Auth/Cert - Closed Specialty Diagnoses / Procedures Referred By Ugo t Referred To Contact Diagnoses LEFT INGUINAL HERNIA Procedures REPAIR INGUINAL HERNIA, 5 YR OR OLDER, REDUCIBLE Referral ID Status Reason Start Date Expiration Date Visits Re quested Visits Authorized [id number] Closed 1 1 Encounter Details Date Type Department Care Team (Late st Contact Info) Description 07/07/2015 12:56 PM EDT - 07/07/2015 2:54 PM EDT Surgery [place] [address] Flash Livingston MD [facility] [place] [address] REPAIR INGUINAL HERNIA, 5 YR OR OLDER, REDUCIBLE (WRVU 7.96) Social History Tobacco Use Types Packs/Day Years [...] Sign Reading Time Taken Comments Blood Pressure 165/87 07/07/2015 1:43 PM EDT Pulse 69 07/07/2015 1:43 PM EDT Temperature 36.7 ??C (98.1 ??F) 07/07/2015 1:43 PM ED T Respiratory Rate 16 07/07/2015 1:43 PM EDT Oxygen Saturation 100% 07/07/2015 1:43 PM EDT Inhaled Oxygen Concentration - - Weight - - Height 172.7 cm (5' 8) 07/07/2015 1:43 PM EDT Body Mass Index - - documented in this encounter Discharge Instructions * Discharge Instructions* Pat Dia RN - 07/07/2015 5:13 PM EDT POST ANESTHESIA INSTRUCTIONS Go home, rest, use caution on stairs. Change positions slowly. Do not smoke if you are alone. Diet light to regular as tolerated today. If nausea occurs start with clear liquids and progress slowly. No driving, operating machinery, alcoholic beverages and no important decisions for 24 hours. Monitor IV site for signs and symptoms of infection: increasing redness, swelling, foul drainage, if occurs contact M.D. Patients who have had endotrachial tubes (this tube, used by anesthesia department, is passed down your throat after you are asleep, to ensure safe air passage during your operation). A sore throat is normal due to the tube. Cold liquids or soothing lozenges will help ease the discomfort. The generalized muscle aches are due to the medication given to you just before the tube is inserted. As the medication wears off, you may develop muscle soreness, which usually goes away in 12-24 hours. * Patient Instructions* Abril Dasilva MD - 07/07/2015 5:02 PM EDT Instructions following Surgery Wound Care: You may now shower after 48 hours and get incisions wet. Pat dry immediately following.Do not scrub them vigorously for the next 2-3 weeks. Do not soak incision(s) under water for the next 2 weeks (i.e. soaking in bath or swimming) as this may promote a wound infection. Some mild swelling and bruising in your scrotum is possible and expected. Your stitches will dissolve and do not need to be removed. There is glue over your incision. This will flake off on in its own. Activity: No heavy lifting more than 15 pounds for the next 4 weeks, then you may gradually lift heavier objects as tolerated by discomfort. Otherwise activity as tolerated by your comfort level. Call Doctor for: Please call if you notice worsening redness or drainage from incision(s) lasting longer than 5 days after your surgery, any foul-smelling drainage from the incision, pain not controlled by pain medications, persistent nausea and vomiting, or for any fevers greater than 101.3 F. The number for questions is [phone] before 5 PM weekdays and [phone] after 5 PM and weekends. Pain Medication: No driving for 8 hours after any dose of opioid pain medication if one was prescribed for you. You may use ibuprofen (motrin, advil) in addition to this medication if your pain is not totally controlled by the opioid. Follow-up: Follow-up appointment will be scheduled with Dr. Livingston in 4 weeks. Appointment will be mailed to you. Please call [phone] (clinic number for appointments) to confirm date and time of your appointment if you do not receive your apointment in 3 weeks. documented in this encounter Medications at Time of Discharge Medication Sig Dispensed Refills Start Date End Date oxyCODONE (ROXICODONE) 5 mg Tablet Take 1 tablet by mouth every 4 hours as needed for Pain. 20 tablet 0 07/07/2015 08/07/2015 acetaminophen (TYLENOL) 500 mg Tablet Take 2 tablets by mouth every 8 hours as needed for Pain. 06/09/2014 01/17/2017 terazosin (HYTRIN) 1 mg capsule Take 1 mg by mouth nightly. 01/14/2019 documented as of this encounter Progress Notes * Pat Dia RN - 07/07/2015 7:24 PM EDT Up to BR - voided qs. documented in this encounter H&P Notes * Flash Livingston MD - 07/07/2015 2:25 PM EDT Patient Name: Shree Ortez Jr. Patient Age: 65 y.o. Birthdate: 1950 Admit date: 07/07/2015 Attending Physician: Flash Livingston MD No interval change in health. Plan on open left inguinal hernia repair today. On exam, BP 165/87 mmHg Pulse 69 Temp(Src) 36.7 ??C (98.1 ??F) (Oral) Resp 16 Ht 172.7 cm (5' 8) SpO2 100% Lungs are clear. Heart is regular. Abdomen is benign. Assessment/Plan: Mr. Ortez is stable for his planned left inguinal hernia repair. Consent is obtained and side is marked. documented in this encounter Miscellaneous Notes * Op Note - Abril Dasilva MD - 07/07/2015 5:05 PM EDT [facility] Operative Note Patient Name: Shree Ortez Jr. : [id number] MR#: [id number] Case Date: 07/07/2015 Surgeon: Surgeon(s) and Role: * Flash Livingston MD - Primary * Abril Dasilva MD - Resident emilia Preoperative diagnosis: LEFT INGUINAL HERNIA Postoperative diagnosis: LEFT INGUINAL HERNIA (Cord lipoma) Procedure(s): REPAIR INGUINAL HERNIA, 5 YR OR OLDER, REDUCIBLE MODIFIER MESH,BARD SOFT MESH Anesthesia: General Estimated Blood Loss: 12cc Specimens removed during surgery: Cord lipoma Drains: None Surgical Closure: Primary Closure - closure of ALL tissue levels during the original surgery regardless of wires, wickes, drains, or other devices extruding through the incision Disposition: awakened from anesthesia, extubated and taken to the recovery room in a stable condition, having suffered no apparent untoward event. Condition: doing well without problems (Please see the Surgical Encounter Summary for any Implant and Specimen details pertinent to this patient.) HPI/Surgical Indications: 65M who presented with symptomatic reducible LIH. CT scan showing fat containing hernia. Procedure Description: Prior to the procedure, the patient's identity, procedure, and informed consent were confirmed in the preoperative holding area. Mr. Ortez was brought to the operating room and placed in the supine position. MAC was initiated without complication. Preoperative antibiotics were administered within 30 minutes prior to skin incision. Sequential compression devices were placed on both legs. The patient was positioned with all pressure points padded, and was then prepped and draped in the usual sterile fashion. A time out was performed per institutional procedure, confirming correct patient, site, consent, procedure, and positioning. An incision was made obliquely above the anticipate course of the inguinal ligament in the LEFT groin. This was then carried down through skin and subcutaneous tissue as well as Luzmaria's fascia. The external oblique fibers were then divided in the direction of travel. The ilioinguinal nerve was identified dissected and divided between clamps. The cord and associated structures were encircled witha thor drain and the floor of the canal was noted to be relatively intact without obvious bulge.The cord itself was then inspected. No hernia sac was noted but a cord lipoma was identified and carefully dissected free from the cord. The cord lipoma was amputated at the base and sent as specimen. The cord lipoma was ligated with a 3-0 vicryl tie prior to being transected. The floor of the canal was then reconstructed with a piece of prolite mesh. This was sutured in interrupted fashion medially to the pubic tubercle, inferiorly to the shelving edge, and superiorly to the conjoined tendon with interrupted 0-0 prolene sutures. The lateral aspect of the mesh was slit so as to create tails which were then able to be wrapped around the cord and reconstitute the deep ring. These tails were then sutured together with another 0-0 prolene suture. The external oblique fibers were then closed using a running 2-0 Vicryl suture. Luzmaria's fascia was then closed with interrupted 3-0 Vicryl suture. The skin was closed with a running subcuticular 4-0 Vicryl suture followed by skin glue. The patient returned to the Recovery Room in stable condition. Sponge and instrument counts were correct. Infection Bundle used? N/A Attestation: Case Date: 07/07/2015 I was present and I participated during the entire procedure (does not need to include opening and closing). ABRIL DASILVA MD 07/07/2015 Associated attestation - Flash Livingston MD - 07/10/2015 6:32 AM EDT Attestation: Case Date: 07/07/2015 I was present and I participated during the entire procedure (does not need to include opening and closing). FLASH LIVINGSTON MD 07/10/2015 * Brief Op Note - Flash Livingston MD - 07/07/2015 4:51 PM EDT Brief Operative Note Patient Name: Shree Ortez Jr. : [id number] MR#: [id number] Case Date: 07/07/2015 Surgeon: Surgeon(s) and Role: * Flash Livingston MD - Primary * Abril Dasilva MD Preoperative diagnosis: LEFT INGUINAL HERNIA Postoperative diagnosis: LEFT INGUINAL HERNIA Procedure(s): REPAIR INGUINAL HERNIA, 5 YR OR OLDER, REDUCIBLE MODIFIER MESH,BARD SOFT MESH Anesthesia: General Findings: Indirect cord lipoma - resected. Ilioinguinal nerve resected given some scarring and proximity to mesh. Repair performed in Brendan fashion. Complications: No immediate. Fluids: See anesthesia record. Estimated Blood Loss: * No values recorded between 07/07/2015 3:42 PM and 07/07/2015 4:51 PM * Drains: None. Disposition: awakened from anesthesia, extubated and taken to the recovery room in a stable condition, having suffered no apparent untoward event. Condition: doing well without problems Infection Bundle used? No Attestation: Case Date: 07/07/2015 I was present and I participated during the entire procedure (does not need to include opening and closing). (Please see the Surgical Encounter Summary for any Implant and Specimen details pertinent to this patient.) documented in this encounter Plan of Treatment Scheduled Procedures Name Priority Associated Diagnoses Date/Ti me EGD, UPPER GI ENDOSCOPY (WRV U 2.09) Esophageal dysphagia Encounter for colorectal cancer screening COLONOSCOPY, DIAGNOSTIC (WRV U 3.26) Esophageal dysphagia Encounter for colorectal cancer screening documented as of this encounter Procedures Procedure Name Priority Date/Time Associated Diagnosis Comments SURGICAL PATHOLOGY REPORT Routine 07/07/2015 4:04 PM EDT SPECIMEN TO PATHOLOGY Routine 07/07/2015 4:04 PM EDT MODIFIER MESH,BARD SOFT MESH 07/07/2015 3:22 PM EDT LEFT INGUINAL HERNIA REPAIR INGUINAL HERNIA, 5 YR OR OLDER, REDUCIBLE (WRVU 7.96) 07/07/2015 3:22 PM EDT LEFT INGUINAL HERNIA IMPLANTABLE DEVICES SCAN 07/07/2015 12:00 AM EDT documented in this encounter Results * Surgical Pathology Report (07/07/2015 4:04 PM EDT) Final Diagnosis The signing pathologist has (i) examined the relevant preparation(s) for the specimen(s) and (ii) rendered or confirmed the diagnosis(es). Accession Number: [id number] ?Location: [facility]; [place]; A . ?Surgical Pathology DIAGNOSIS Left inguinal hernia sac Fibroadipose tissue with vascular congestion ??consistent with lipoma of cord. 07/11/15 VAM 07/11/15 Verified by: ? Sony Cervantes MD ?Pathologist ?(Electronic Signature) The attending pathologist whose signature appears on this report has reviewed all diagnostic slides and has edited the gross and/or microscopic portion of the report in rendering the final pathologic diagnosis. CLINICAL INFORMATION Specimen Submitted: A - Lipoma Clinical History: Left inguinal hernia Clinical Diagnosis: Lipoma SPECIMEN PROCESSING A - Labeled/Fixativ e: Lipoma, fresh. Quantity/Size: Single, 6.8 x 3.4 x 1.3 cm. Tissue Description: Fatty, marie-yellow tissue. Sections/Proces sing: Margin is marked with black ink. On section, surfaces are glistening, marie-yellow. (R6) ??p 07/11/2015 9:12 AM EDT [facility] SOFT TISSUE MASS / Unknown 07/07/2015 4:04 PM EDT 07/07/2015 4:04 PM EDT Flash Livingston MD PATHOLOGY/CYTOLOGY O [facility] [place] [address] * Specimen to Pathology (surgical or derm) (07/07/2015 4:04 PM EDT) AP Specimen 07/07/2015 4:04 PM EDT 07/07/2015 4:04 PM EDT Narrative [facility] - 07/07/2015 4:04 PM EDT Specimen requisition ordered. ??Separate Pathology report to follow Flash Livingston MD PATHOLOGY/CYTOLOGY O [facility] Performing Organization Address City/[facility]/ZIP Co de Phone Number [facility] * SCAN DOC: IMPLANTABLE DEVICES (07/07/2015 12:00 AM EDT) Scanning Provider MEDIA MGR SCAN EXT O RDR/RSLT documented in this encounter Visit Diagnoses Not on filedocumented in this encounter Administered Medications Inactive Administered Medications - up to 3 most recent administrations Medication Order MAR Action Action Date Dose Rate Site acetaminophen (TYLENOL) tablet 1,000 mg 1,000 mg, Oral, EVERY 6 HOURS WHILE AWAKE, First dose on Fri07/07/15 at 1800, Until Discontinued, Maximum dose of acetaminophen is 4000 mg from all sources in 24 hours., Routine Given 07/07/2015 5:56 PM EDT 1,000 mg BUpivacaine (PF) (MARCAINE) 0.5 % (5 mg/mL) injection ONCE PRN, Starting on Fri07/07/15 at 1645, Until Fri07/07/15 at 1924, Intra-Operative (Intra-Procedure), Routine Given 07/07/2015 4:45 PM EDT 13.5 mLs 19- Surgical Site fentaNYL (PF) 50 mcg/mL 2mL syringe 25 mcg, Intravenous, EVERY 5 MIN PRN, Pain, for 1-4 pain score, Starting on Fri07/07/15 at 1712, Until Fri07/07/15 at 1924, for 1-4 pain score Hold for respiratory rate less than 10 per minute. Maximum dose: 250 mcg over one hour., PACU Recovery Given 07/07/2015 6:18 PM EDT 25 mcg Given 07/07/2015 6:03 PM EDT 25 mcg lactated ringers infusion 1,000 mL 1,000 mL, at 100 mL/hr, Intravenous, CONTINUOUS, Starting on Fri07/07/15 at 1400, Until Fri07/07/15 at 1924, Day of Surgery (Day of Procedure) New Bag 07/07/2015 3:20 PM EDT New Bag 07/07/2015 1:56 PM EDT 1,000 mLs 100 mL/hr lidocaine (XYLOCAINE) 10 mg/mL (1 %) injection ONCE PRN, Starting on Fri07/07/15 at 1647, Until Fri07/07/15 at 1924, Intra-Operative (Intra-Procedure), Routine Given 07/07/2015 4:47 PM EDT 13.5 mLs 19- Surgical Site ondansetron (ZOFRAN) injection 4 mg 4 mg, Intravenous, EVERY 30 MIN PRN, Starting on Fri07/07/15 at 1712, Until Fri07/07/15 at 1924, Nausea, May repeat 4 mg once in 30 minutes. If multiple antiemetics ordered, use ondansetron first and if ineffective use prochlorperazine second and if ineffective use promethazine, PACU Recovery Given 07/07/2015 5:33 PM EDT 4 mg oxyCODONE (ROXICODONE) immediate release tablet 5 mg 5 mg, Oral, EVERY 4 HOURS PRN, Starting on Fri07/07/15 at 1702, Until Fri07/07/15 at 2126, Pain, Routine Given 07/07/2015 5:57 PM EDT 5 mg documented in this encounter Active and Recently Administered Medications Times are shown in EDT. Scheduled Medication Order 07/05/2015 07/06/2015 07/07/2015 acetaminophen (TYLENOL) tablet 1,000 mg (CANCELED) 1,000 mg, Oral, EVERY 6 HOURS WHILE AWAKE, First dose on Fri07/07/15 at 1800, Until Discontinued, Maximum dose of acetaminophen is 4000 mg from all sources in 24 hours., Routine 1756 (Given - Provid er: Pat Dia RN)1800 (Due) ceFAZolin (ANCEF) 2g in dextrose 5% 50 mL (COMPLETED) 2 g, Intravenous, EVERY 3 HOURS, 1 dose, First dose on Fri07/07/15 at 1400, Administer over 30 Minutes, Intra-Operative (Intra-Procedure), Indication for (Active or Suspected): Prophylaxis 1530 (Given - Provid er: Ilya Payne MD) Continuous Medication Order 07/05/2015 07/06/2015 07/07/2015 lactated ringers infusion 1,000 mL (CANCELED) 1,000 mL, at 100 mL/hr, Intravenous, CONTINUOUS, Starting on Fri07/07/15 at 1400, Until Fri07/07/15 at 1924, Day of Surgery (Day of Procedure) 1356 (New Bag - Prov ider: Nidia Parra RN)1520 (New Bag - Provider: Ilya Payne MD)1646 (Anesthesia Volume Adjustment - Provider: Ilya Payne MD) PRN Medication Order 07/05/2015 07/06/2015 07/07/2015 BUpivacaine (PF) (MARCAINE) 0.5 % (5 mg/mL) injection (CANCELED) ONCE PRN, Starting on Fri07/07/15 at 1645, Until Fri07/07/15 at 1924, Intra-Operative (Intra-Procedure), Routine 164 (Given - Provid er: Flash Livingston MD) fentaNYL (PF) 50 mcg/mL 2mL syringe (CANCELED)(Linked Group 1) 25 mcg, Intravenous, EVERY 5 MIN PRN, Pain, for 1-4 pain score, Starting on Fri07/07/15 at 1712, Until Fri07/07/15 at 1924, for 1-4 pain score Hold for respiratory rate less than 10 per minute. Maximum dose: 250 mcg over one hour., PACU Recovery 1803 (Given - Provid er: Pat Dia RN)1818 (Given - Provider: Pat Dia RN) lidocaine (XYLOCAINE) 10 mg/mL (1 %) injection (CANCELED) ONCE PRN, Starting on Fri07/07/15 at 1647, Until Fri07/07/15 at 1924, Intra-Operative (Intra-Procedure), Routine 164 (Given - Provid er: Flash Livingston MD) ondansetron (ZOFRAN) injection 4 mg (CANCELED) 4 mg, Intravenous, EVERY 30 MIN PRN, Starting on Fri07/07/15 at 1712, Until Fri07/07/15 at 1924, Nausea, May repeat 4 mg once in 30 minutes. If multiple antiemetics ordered, use ondansetron first and if ineffective use prochlorperazine second and if ineffective use promethazine, PACU Recovery 1733 (Given - Provid er: Pat Dia RN) oxyCODONE (ROXICODONE) immediate release tablet 5 mg 5 mg, Oral, EVERY 4 HOURS PRN, Starting on Fri07/07/15 at 1702, Until Fri07/07/15 at 2126, Pain, Routine 1757 (Given - Provid er: Pat Dia RN) Linked Groups Order Group 1: fentaNYL (PF) 50 mcg/mL 2mL syringe (CANCELED)Jump to med 25 mcg, Intravenous, EVERY 5 MIN PRN, Pain, for 1-4 pain score, Starting on Fri07/07/15 at 1712, Until Fri07/07/15 at 1924, for 1-4 pain score Hold for respiratory rate less than 10 per minute. Maximum dose: 250 mcg over one hour., PACU Recovery Or fentaNYL (PF) 50 mcg/mL 2mL syringe (CANCELED) 50 mcg, Intravenous, EVERY 5 MIN PRN, Pain, for 5-10 pain score, Starting on Fri07/07/15 at 1712, Until Fri07/07/15 at 1924, for 5-10 pain score Hold for respiratory rate less than 10 per minute. Maximum dose: 250 mcg over one hour., PACU Recovery documented in this encounter Care Teams Braided Band Assembler Relationship Specialty Start Date End Date Ivanna Hughes, ELECTRONIC OPERATOR PCP - General 05/19/11 09/10/15 documented as of this encounter
--- OUTSIDE RECORDS SUMMARY | 2024-07-19 16:49 | XMS_ITS | Encounter Summary ---
Author Organization [facility] [place] [address] Care Team Providers Care Oracle Adf Consultant Name Role Phone Duke Ramos MD Primary Care Provider [phone] Reason for Visit * Reason Comments Left Hip Pain discuss JOHN Encounter Details Date Type Department Care Team (Latest Contact Info) Description 10/31/2016 10:20 AM EST Office Visit Orthopaedics at [facility] [place] [address] Pineda Montague MD Primary osteoarthritis of left [...] Sign Reading Time Taken Comments Blood Pressure 150/95 10/31/2016 10:00 AM EST Pulse 84 10/31/2016 10:00 AM EST Temperature - - Respiratory Rate - - Oxygen Saturation - - Inhaled Oxygen Concentration - - Weight 95.3 kg (210 lb) 10/31/2016 10:00 AM EST verbal Height 172.7 cm (5' 8) 10/31/2016 10:00 AM EST verbal Body Mass Index 31.93 10/31/2016 10:00 AM EST documented in this encounter Progress Notes * Pineda Montague MD - 10/31/2016 10:20 AM EST I have seen the patient and reviewed Salvador Boo [facility] history/physical and I agree with the details as written. The assessment and plan were formulated in discussion with me and I agree with them as documented. In brief, patient is a 66-year-old male [...] role of injections versus total hip arthroplasty. Discussed with patient today operative technique, in-hospital [...] by approximately 12-18 months to full rehabilitation. At this point, patient elected to move forward total hip when the weather is warmer I'll place orders today, he'll contact the office on Friday. Pineda Montague MD, MS 10/31/2016 * Salvador Boo PA - 10/31/2016 10:20 AM EST Images from the original note were not included. Department of Orthopaedics Division of Adult Joint Reconstructive Surgery ARTHROPLASTY HISTORY/PREVIOUS HIP SURGERY: 1. None Subjective: Shree Ortez Jr. is a 66 y.o. male who presents with Left hip pain. Onset of the symptoms was several years ago. There was not an inciting event. He has had prior hip problems. Shree's previous visits for this problem: none. Evaluation to date: plain films, which were abnormal DJD. Shree reports the hip pain is groin and lateral. He does report groin pain, does not endorse thigh pain and does not feel as if he walks with a limp. There is no radiation of the pain . Aggravating symptoms include: going up and down stairs, lateral movements and standing. He feels that his hip pain is keeping him from doing things love doing. Shree has pain at night.. He can weightbear on the left leg and does not use assistive devices. He climb stairs and does use the railing. He does have difficulty putting on his shoes and socks. He can sit comfortably in a chair for 1 hour. Shree has not tried physical therapy. He has not had injections into the joint: . Use of NSAIDs/Pain meds: Tylenol used and beneficial He does not reports problems with the contralateral hip, does report problems with the ipsilateral knee and does have a history of spine or back issues REVIEW OF SYSTEMS: Shree denies fevers, chills, night sweats, nausea, or vomiting. He does not endorse a history of DVT/PE or clotting disorder. QUESTIONNAIRE RESPONSES: General Health, Prior Treatments, PreExisting Condition, Health Habits, About You 10/31/2016 PROMIS-10 General Health Fair PROMIS-10 Quality of Life Fair PROMIS-10 Physical Health Fair PROMIS-10 Mental Health Good PROMIS-10 Social Activity Fair PROMIS-10 Everyday Activities Moderately PROMIS-10 Pain 8 PROMIS-10 Fatigue Moderate PROMIS-10 Social Roles Fair PROMIS-10 Anxious or Depressed Sometimes PROMIS PHYSICAL SCORE (range 16-68) 34.9 PROMIS MENTAL SCORE (range 21-68) 38.8 Treatments Tried Walking aids (e.g.cane, walker), Acetaminophen (e.g. Tylenol) Prior Surgery none HOOS JR Scores 46.65 JOHN Grade 3 [facility] Response 10/31/2016 HOOS JR Scores 46.65 Spine [facility] Response 10/31/2016 HOOS JR Scores 46.65 ALLERGIES No Known Allergies Allergies to metals: . SOCIAL HISTORY: reports that he quit smoking about 46 years ago. He has never used smokeless tobacco. He reports that he does not drink alcohol or use illicit drugs. Occupation: [employer]IES: Patient Active Problem List Diagnosis Code ??? 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 Dysphagia R13.10 ??? Osteoarthritis of LEFT hip M16.9 ??? 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 The patient can bear weight on the injured extremity. I have made the following determinations: Hip Exam: Left Prior surgery on this joint:No Leg Length: Longer leg: equal Limb Length discrepancy: 0cm Motion: Flexion contracture: 0 Total degrees of Flexion: 105 Total degrees of Abduction: 20 Total degrees of Ext Rotation: 10 Total degrees of Internal Rotation: 5 Gait Abnormality: Normal Radiographic evidence of joint damage: [0= normal; 1=minimal ; 2= some osteophytes , some narrowing ; 3= moderate osteophytes, significantnarrowing, mild deformity; 4= large osteophytes, marked narrowing, obvious deformity]: 4= large ostophytes, marked narrowing, obvious deformity Skin Integrity: Normal Pulses Palpable: Left PT: Yes Left DP: Yes Motor/Sensory: Left Distal Motor: Normal Distal Sensory: Normal Hip Abductors: 4 Trendelenburg test: negative Imaging: X-ray left: shows DJD changes, likely chronic Assessment: Mr. Ortez is a 66 y.o. year old male with severe osteoarthritis of his left hip. Plan: Natural history and expected course discussed. Questions answered. We reviewed the multiple treatment options available to him for this condition and the hurtful but non-harmful nature of arthritis. Both operative and nonoperative options were discussed as well as the pure elective nature of each. I reviewed the concept of the arthritis ladder with its step-russell approach, rising in invasiveness based on either previous response or symptom severity/impact on lifestyle. Considering the apparent impact on his lifestyle and having explored non- operative treatment options, I indicated that in my opinion total hip arthroplasty would be a reasonable option to attempt to restore a more normal, pain-free level of function. I discussed how the procedure is performed and all of their questions were answered. I discussed the risks of the procedure and the potentially devastating consequences of complications. Mr. Ortez expressed a desire to pursue total hip arthroplasty. Potential barriers to total joint arthroplasty: -BMI > 40: No -Active Tobacco use: No -Diabetes with hemoglobin A1C > 7.5: No He will seek out the needed medical clearance and undergo the needed testing to ensure medical suitability for the proposed surgical intervention. I will plan to meet him again in the weeks prior to an anticipated potential surgical date, to review his medical consult and testing, answer any and all questions, and formulate our definitive decisions regarding proceeding with surgery (or not) at that time only. BRIDGETT Sterling documented in this encounter Plan of Treatment Scheduled Procedures Name Priority Associated Diagnoses Date/Ti me EGD, UPPER GI ENDOSCOPY (WRV U 2.09) Esophageal dysphagia Encounter for colorectal cancer screening COLONOSCOPY, DIAGNOSTIC (WRV U 3.26) Esophageal dysphagia Encounter for colorectal cancer screening documented as of this encounter Procedures Procedure Name Priority Date/Time Associated Diagnosis Comments TOTAL HIP ARTHROPLASTY, ANTERIOR APPROACH Routine 10/31/2016 10:41 AM EST Primary osteoarthritis of left hip documented in this encounter Results * APTT (12/23/2016 11:00 AM EDT) Partial Thromboplastin Time 26 25 - 35 sec [facility] Comment: The recommended therapeutic range for full dose, unfractionated heparin at [facility] is 80 ? 114 seconds. The use of the anti-Xa (heparin) level rather than the PTT is recommended for monitoring anticoagulation intensity in critically ill patients receiving unfractionated heparin by continuous IV infusion. Blood specimen (specimen) 12/23/2016 11:00 AM EDT 12/23/2016 11:20 AM EDT Narrative Resulting Agency Comment Spec In Lab Pineda Montague MD HEMATOLOGY ORDERABLE S [facility] [place] [address] * Prothrombin Time (12/23/2016 11:00 AM EDT) Prothrombin Time 13.4 12.0 - 15.0 sec [facility] Comment: An INR <2.0 indicates adequate [...] International Normalization Ratio 1.0 0.9 - 1.1 [facility] Blood specimen (specimen) 12/23/2016 11:00 AM EDT 12/23/2016 11:20 AM EDT Narrative Resulting Agency Comment Spec In Lab Pineda Montague MD HEMATOLOGY ORDERABLE S [facility] [place] [address] * (ABNORMAL) Basic Metabolic Panel (non-fasting) (12/23/2016 11:00 AM EDT) Glucose 99 65 - 199 mg/dL [facility] Comment:Diabetes: >=200 mg/d L plus symptoms Blood Urea Nitrogen 21(H) 10 - 20 mg/dL [facility] Creatinine 1.52(H) 0.80 - 1.50 mg/dL [facility] Comment: Please note that the pediatric reference intervals supplied above were not validated at [facility]. Results from pediatric patients should be interpreted in conjunction to the patient's age, height and muscle mass. Sodium 142 135 - 145 mmol/L [facility] Potassium 4.5 3.5 - 5.0 mmol/L [facility] Comment: Please note: ??Patients with WBC >100,000 may have falsely elevated Potassium levels. ??For accurate Potassium quantification in these patients send serum separator tube (gold top) for subsequent determinations. ??Contact the Clinical Chemistry Laboratory if there are any questions. Chloride 104 98 - 107 mmol/L [facility] Carbon Dioxide 24 22 - 31 mmol/L [facility] Anion Gap 14 5 - 15 mmol/L [facility] Calcium 9.0 8.5 - 10.5 mg/dL [facility] Est Glomerular Filtration Rate 46(L) >=60 [...] the following links into your internet browser. [email or web address] Blood specimen (specimen) 12/23/2016 11:00 AM EDT 12/23/2016 11:20 AM EDT Narrative Resulting Agency Comment Spec In Lab Pineda Montague MD CHEMISTRY ORDERABLES Performing Organization Address [facility] Co de Phone Number [facility] [place] [address] * EKG 12 Lead (12/23/2016 10:55 AM EDT) Ventricular rate 71 BPM MUSE SYSTEM Atrial Rate 71 BPM MUSE SYSTEM P-R Interval 160 ms MUSE SYSTEM QRS Duration 96 ms MUSE SYSTEM Q-T Interval 368 ms MUSE SYSTEM QTC Calculated (Bezet) 399 ms MUSE SYSTEM Calculated P [place] 24 degrees MUSE SYSTEM Calculated R [place] 55 degrees MUSE SYSTEM Calculated T [place] 59 degrees MUSE SYSTEM INTERPRETATION Normal sinus rhythm Normal ECG No previous ECGs available Confirmed by MD Korina, Alyx ([id number]) on 12/23/2016 6:06:17 PM MUSE SYSTEM 12/23/2016 10:5 5 AM EDT 12/23/2016 6:06 PM EDT Pineda Montague MD ECG ORDERABLES Performing Organization Address [facility] Co de Phone Number MUSE SYSTEM documented in this encounter Visit Diagnoses Diagnosis Primary osteoarthritis of left hip Primary localized osteoarthrosis, pelvic region and thigh documented in this encounter Care Teams Oracle Adf Consultant Relationship Specialty Start Date End Date Duke Ramos MD [address] [place] [address] PCP - General Family Medicine 08/23/16 06/28/18 documented as of this encounter
--- OUTSIDE RECORDS SUMMARY | 2024-07-19 16:49 | XMS_ITS | Encounter Summary ---
Author Organization [facility] [address] [place] [place] [address] Care Team Providers Care Mechanism Assembler Name Role Phone Unavailable Primary Care Provider Unavailabl e Encounter Details Date Type Department Care Team (Late st Contact Info) Description 09/12/2015 [place] [id number] Jarocho Jenkins MD [address] [place] [address] Social History Tobacco Use Types Packs/Day Years [...]
--- OUTSIDE RECORDS SUMMARY | 2024-07-19 16:49 | XMS_ITS | Encounter Summary ---
Author Organization [facility] Address [facility] [place] [address] Care Team Providers Care Contracts Advisor Name Role Phone Duke Ramos MD Primary Care Provider [phone] [phone] Encounter Details Date Type Department Care Team (Latest Contact Info) Description 10/22/2016 12:17 PM EST - 10/22/2016 12:56 PM [facility] Hospital Encounter XRay at [address] [place] [phone] Jarocho Jenkins MD [address] [place] [address] History of kidney cancer Discharge Disposition: Home [...] Comments XR CHEST PA AND LATERAL Routine 10/22/2016 12:23 PM EST History of kidney cancer documented [...] No pulmonary metastases identified. Jarocho Jenkins MD IMG DX ORDERABLES documented in this encounter Visit Diagnoses Diagnosis History of kidney cancer Personal history of malignant neoplasm of kidney documented in this encounter Care Teams Contracts Advisor Relationship Specialty Start Date End Date Duke Ramos MD [address] [place] [address] PCP - General Family Medicine 08/23/16 06/28/18 documented as of this encounter
--- OUTSIDE RECORDS SUMMARY | 2024-07-19 16:49 | XMS_ITS | Encounter Summary ---
Author Organization Formerly [facility] Address [facility] [place] [place] [place] [address] Care Team Providers Care Small Appliance Assembly Supervisor Name Role Phone Ivanna Hughes APRN Primary Care Provider [phone] Reason for Visit * Reason Comments Follow Up Surgery Encounter Details Date Type Department Care Team (Late st Contact Info) Description 08/07/2015 1:00 PM EST Office Visit General Surgery at [facility] [address] Flash Rivas MD [facility] [place] [address] Postop check Social History Tobacco Use Types Packs/Day Years [...] as of this encounter Progress Notes * Flash Rivas MD - 08/07/2015 1:07 PM EST Shree Ortez Jr. returns today for postoperative evaluation s/p left inguinal hernia repair on 07/07/2015. he is doing well and voices no complaints. Bowel function has returned. No incisional issues and minimal pain at present. EXAM Alert NAD Abdomen soft, nondistended. Nontender. Incision healing well without erythema, drainage or recurrent hernia - a firm, healing ridge is present. Assessment/Plan: Shree Ortez Jr. is doing well s/p left inguinal hernia repair. He is encouragedto gradually return to full activity as tolerated. Will return to the care of the primary provider and will see me back with any concerns as needed. documented in this encounter Plan of Treatment Scheduled Procedures Name Priority Associated Diagnoses Date/Ti me EGD, UPPER GI ENDOSCOPY (WRV U 2.09) Esophageal dysphagia Encounter for colorectal cancer screening COLONOSCOPY, DIAGNOSTIC (WRV U 3.26) Esophageal dysphagia Encounter for colorectal cancer screening documented as of this encounter Visit Diagnoses Diagnosis Postop check Follow-up examination, following unspecified surgery documented in this encounter Care Teams Small Appliance Assembly Supervisor Relationship Specialty Start Date End Date Ivanna Hughes APRN PCP - General 05/19/11 09/10/15 documented as of this encounter
--- OUTSIDE RECORDS SUMMARY | 2024-07-19 16:49 | XMS_ITS | Encounter Summary ---
Author Organization [facility]ly [facility] Address [facility] [place] [address] Care Team Providers Care Area Attendant Name Role Phone Unavailable Primary Care Provider Unavailabl e Encounter Details Date Type Department Care Team (Latest Contact Info) Description 07/26/2016 12:15 AM EDT - 07/26/2016 11:59 PM EDT Hospital Encounter Radiology Library at [facility] [place] [phone] Vance Jose MD [facility] [place] [address] Pain Discharge Disposition: Home Social History Tobacco Use [...] Diagnosis Comments FILM LIBRARY STORAGE ONLY DX SHOULDER Routine 07/26/2016 12:15 AM EDT Pain documented in this encounter Results * Film Library- Storage Only DX Shoulder (07/26/2016 12:15 AM EDT) Narrative AFTAB MCKNIGHT - 10/22/2016 8:45 AM EST This exam is for storage only and is auto-finalizing. Vance Jose MD IMG FILM LIBRARY ORD ERABLES [facility] [place], [place] documented in this encounter Visit Diagnoses Diagnosis Pain Generalized pain documented in this encounter
--- OUTSIDE RECORDS SUMMARY | 2024-07-19 16:49 | XMS_ITS | Encounter Summary ---
[place] [address] Care Team Providers Care Tuberculosis Specialist Name Role Phone Duke Ramos MD Primary Care Provider [phone] Reason for Visit * Auth/Cert Specialty Diagnoses / Procedures Referred By Ugo t Referred To Contact Diagnoses Primary osteoarthritis of left hip left hip osteoarthritis Procedures PRO TOTAL HIP ARTHROPLASTY @TOTAL HIP ARTHROPLASTY, ANTERIOR APPROACH (WRVU 20.72) MODIFIER CORAIL FEMORAL STEM DEPUY MODIFIER PINNACLE ACETABULUM DEPUY Referral ID Status Reason Start Date Expiration Date Visits Re quested Visits Authorized [id number] 1 1 Encounter Details Date Type Department Care Team (Late st Contact Info) Description 01/15/2017 7:30 AM EDT - 01/15/2017 10:28 AM EDT [place] [phone] Pineda Montague MD TOTAL HIP ARTHROPLASTY, ANTERIOR APPROACH (WRVU 19.6) Social History Tobacco Use Types Packs/Day Years [...] Sign Reading Time Taken Comments Blood Pressure 151/108 01/15/2017 6:27 AM EDT Pulse 78 01/15/2017 6:27 AM EDT Temperature 36.8 ??C (98.2 ??F) 01/15/2017 6:27 AM ED T Respiratory Rate 16 01/15/2017 6:27 AM EDT Oxygen Saturation 96% 01/15/2017 6:27 AM EDT Inhaled Oxygen Concentration - - Weight 99.2 kg (218 lb 11.1 oz) 01/15/2017 6:27 AM EDT Height - - Body Mass Index 33.25 01/15/2017 6:27 AM EDT documented in this encounter Discharge Summaries * Holly Alejandra PA - 01/17/2017 12:51 PM EDT Discharge Summary Patient Name: Shree Ortez Jr. Patient Age: 66 y.o. Language: [place] Race: White Ethnicity: Not nor Admit date: 01/15/2017 Discharge date and time: 01/17/2017 Attending Physician: Pineda Montague MD Discharge Physician: Pineda Montague MD Follow-up Recommendations for Providers: See discharge instructions for additional details. Future Appointments Date Time Provider Department Center 02/13/2017 10:00 AM [facility] DX ROOM 1 Xray [facility] 02/13/2017 11:00 AM Pineda Montague MD [facility] 3C [facility] 02/13/2017 11:30 AM ORTHO DISABILITY BENEFITS SPECIALIST [facility] Inpatient Provider Contact Information: Pineda Montague MD Orthopedics: [phone] After hours and weekends, call [facility] Anesthesiology Physician, , and have the Orthopedic resident paged. [...] to: Rehab Patient [facility] be [facility]: [facility] [place] [address] Updated Allergies/ADRs: No Known Allergies Immunizations Given [...] mg Quantity: 26 capsule Refills: 0 multivitamin Vaxs-Gt-TC-Min 27-0.4 mg Tab Commonly known as: THERAPEUTIC-M [...] fiber while on narcotic pain meds. 4. [place]/Sutures: No external maría or sutures inplace. Sutures are internal and [...] bowel movement. You can also take an qnii-svm-wabexhx medication, Miralax if needed to combat constipation. [...] 1. You do NOT have any external maría or sutures in place. Your sutures are [...] 1. You will have follow-up appointments at [facility] as indicated below in Future Appointment and Orders. 2. You will need to have x-rays prior to your follow-up appointment on 02/13/17. Please come to Radiology, desk 3T, 1 hour BEFORE that appointment for these x-rays. Future Appointments Date Time Provider Department Center 02/13/2017 10:00 AM [facility] DX ROOM 1 Xray [facility] 02/13/2017 11:00 AM Pineda Montague MD [facility] 02/13/2017 11:30 AM ORTHO DISABILITY BENEFITS SPECIALIST [facility] If you have questions or concerns: Friday through Friday, 8 AM - 5 PM, please call Pineda Reeves MD's office at . If it is after 5 PM, the weekend, or holidays, please call and ask to speak with theOrthopedic resident on-call. Future Appointments and Orders Future Appointments Provider Department Dept Phone 02/13/2017 11:00 AM Pineda Montague MD Orthopaedics [phone] 02/13/2017 11:30 AM ORTHO DISABILITY BENEFITS SPECIALIST Orthopaedics [phone] Primary Care Provider: Duke Ramos MD [phone] Discharge References/Attachments None documented in this encounter [...] bowel movement. You can also take an ylkx-osz-pyjxdra medication, Miralax if needed to combat constipation. [...] 1. You do NOT have any external maría or sutures in place. Your sutures are [...] 1. You will have follow-up appointments at [facility] as indicated below in Future Appointment and Orders. 2. You will need to have x-rays prior to your follow-up appointment on 02/13/17. Please come to Radiology, desk , 1 hour BEFORE that appointment for these x-rays. Future Appointments Date Time Provider Department Center 02/13/2017 10:00 AM [facility] DX ROOM 1 [facility]ray [facility] 02/13/2017 11:00 AM Pineda Montague MD [facility] 02/13/2017 11:30 AM ORTHO DISABILITY BENEFITS SPECIALIST [facility] [facility] If you have questions or concerns: Friday through Friday, 8 AM - 5 PM, please call Pineda Reeves MD's office at . If it is after 5 PM, the weekend, or holidays, please call and ask to speak with theOropedic resident on-call. documented in this encounter Medications [...] daily as needed (constipation). 01/17/2017 02/13/2017 multivitamin Pauf-Hu-SR-Min (THERAPEUTIC-M) 27-0.4 mg Tablet Take 1 tablet [...] Report called andgiven to DEANNA Gorman at [facility]. * Radha Perez RN - 01/17/2017 11:09 AM EDT Patient Name: Shree Ortez Jr. : 1950 Patient has been offered a snf bed at [facility] for today. No MD to MD report necessary Please call Nursing Report to [phone] , ask for metalizer. Info to accompany patient: Narcotic Prescriptions Copies of Medication Administration Records and IV sheets for past two weeks. Friend will transport pt via car around 12:30-1. [facility] [address] [id number] Plan: [employer] will be available to the patient and CRC for further assistance. Radha Perez RN Pager [phone] * Jody Patel MD - 01/17/2017 6:56 [...] Time Provider Department Center 02/13/2017 10:00 AM [facility] DX ROOM 1 Xray [facility] 02/13/2017 11:00 AM Pineda Montague MD [facility] 02/13/2017 11:30 AM ORTHO DISABILITY BENEFITS SPECIALIST [facility] * Montse Curran RN [...] Information: has ? Health/Prescription Coverage: Primary Insurance: [place] Secondary Insurance: None Prescription Coverage: [facility] Preferred Pharmacy: [place] [address] Other: None ?? Primary Care Provider: Duke Ramos MD [phone] ?? Patient/Caregiver Goals of Treatment: He wants to be able to do woodworking. ?? Potential Needs for Transition of Care: Rehab/SNF: patient has spoken with ( Luciana) @ [facility] and R facility in [place] re his [employer] insurance and they have told him they accept and will likely be able to offer bed when medicallyready for discharge ? Home Health: No ME: 2 FWW. Dialysis: No Community Resources: None Transportation: Friend- Alfredo Rodríguez II. Other: None ?? Anticipated Barriers to Discharge/Special Considerations: None ?? Plan: discussed discharge plan anticipate rehab stay Will ask RS to confirm with Antwon Wood. A member of the Care Management team [...] Time Provider Department Center 02/13/2017 10:00 AM [facility] DX ROOM 1 [facility]ray [facility] 02/13/2017 11:00 AM Pineda Montague MD [facility] 02/13/2017 11:30 AM ORTHO DISABILITY BENEFITS SPECIALIST [facility] Associated attestation - Pineda Montague MD - 01/16/2017 5:47 PM EDT Patient seen and examined on rounds. Agree with resident note. Pineda Montague M.D. [place] Department of Orthopaedics * Gricel Jaramillo MD [...] Miscellaneous Notes * Plan of Care - Inez Caldwell RN - 01/17/2017 6:18 AM EDT [...] control; d/c Goal: Fall Prevention-Safe Patient Handling 01/15/17 1827 01/16/17223401/17/1715 Musculoskeletal Interventions Muscle Strengthening activity/mobility promoted;mobility in [...] with ADLs Surveillance [continuous indirect monitoring]: Purposeful roundingmariaa Patient-specific fall prevention interventions for sensory deficits [...] Problem: 66 y/o male s/p L anterior JHON Precautions/Restrictions: hip, fall Precautions Comments: (standard precautions; [...] Anticipated Discharge Disposition: inpatient rehabilitation facility Pager: [phone] Patti Cedeno OT Occupational Therapy Rehabilitation Department [...] ongoing * Plan of Care - Urban Wright PT - 01/16/2017 9:30 AM EDT Problem: [...] today???s session. Social History: Patient lives in [place], [place] in a 2 level home with [...] Anticipated Discharge Disposition: inpatient rehabilitation facility Pager: [phone] Urban Wright, PT 01/16/2017 Inpatient Physical Therapy Problem: Acute Rehab Services Goal & Intervention Plan Goal: Bed Mobility Goal Stand Alone Therapy Goal Outcome: Ongoing (Interventions Implemented as Appropriate) 01/16/17 1119 Bed Mobility Goal Bed Mobility Goal, Date Established 01/16/17 Bed Mobility Goal, Time to Achieve 2 wks Bed Mobility Goal, Activity Type all bed mobility activities Bed Mobility Goal, [place] Level independent Bed Mobility Goal, Assistive Device leg flavor extractor Goal: Gait Training Goal Stand Alone Therapy Goal Outcome: Ongoing (Interventions Implemented as Appropriate) 01/16/17 1119 Gait Training Goal Gait Training Goal, Date Established 01/16/17 Gait Training Goal, Time to Achieve 2 wks Gait Training Goal, [place] Level conditional independence Gait Training Goal, Assist [...] standing static/dynamic activities with RWsupport PT Goal, [place] Level conditional independence Goal: Strength Goal Stand [...] Activity Type all transfers Transfer Train Goal, [place] Level conditional independence Transfer Training Goal, Assist [...] the desired outcomes by discharge/transition of care. 01/15/17 1828 Pressure Injury Risk (Dilshad Scale) (Adult,Obstetrics,Pediatric) [...] ADLs Surveillance [continuous indirect monitoring]: Purposeful rounding, masimo Patient-specific fall prevention interventions for sensory deficits provided, if applicable: n/a CPG GOAL OUTCOME EVALUATION: * Brief Op Note - Pineda Montague MD - 01/15/2017 10:17 AM EDT Brief Operative Note Patient Name: Shree Ortez Jr. : [id number] MR#: [id number] Date of surgery: 01/15/2017 ?? Preoperative diagnosis: Left hip osteoarthritis ?? Postoperative diagnosis: Left hip osteoarthritis ?? Procedure: Left total hip arthroplasty ?? Anesthesia: General ?? Surgeon: Pineda Montague MD ?? Child Day Care Provider: Jody Camejo MD ?? Estimated blood loss: 550 cc ?? Fluids: 600 cc ?? Urine output: Due to Void ?? Drains: None ?? Complications: None ?? Implants: 1. 12 Corail coxa vara femoral stem 2. 54 mm [place] 100 Gription acetabular shell 3. 36 x [...] services accepted. Informed patient that an inpatient critical care cns will be working to expedite the discharge process and to direct questions to the assigned critical care cns. ?? Reason for Hospitalization: Primary OA of [...] We discussed qualifications to go to a fci facility. We discussed Medicare guidelines for admission into a fci facilityas well as transportation, namely, ambulance and the Medicare guidelines associated with ambulance or wheelchair vans. We discussed the purpose and services provided by [facility]. I communicated that we will not know until after surgery what will be the best course of discharge for the patient based on medical necessity and that thisis why we plan for different courses of discharge. I informed the patient that they will be workingwith a critical care cns after surgery to facilitate the discharge plan. I encouraged the patient to call me with any questions or concerns prior to the surgery as well as when they discharge home. ? Health/Prescription Coverage: Primary Insurance: [email or web address] Secondary Insurance: None Prescription Coverage: [place] [employer] Preferred Pharmacy: [facility] [address] [place] [id number] Other: None ?? Primary Care Provider: Duke Ramos MD [phone] ?? Patient/Caregiver Goals of Treatment: He wants to be able to do woodworking. ?? Potential Needs for Transition of Care: Rehab/SNF: [facility] ?? Based on discussions with the multi-disciplinary healthcare team, the patient would benefit from - level of care at discharge. ? I have met with the patient/branch customer service representative to discuss discharge planning needs. I have provided the [facility], Office of Care Management letter from the [employer] pertaining to rehab referrals. I have also provided a letter describing our affiliations within the [facility] and educated them about their right to choose where referrals are placed. ?? I reviewed the different levels of rehab including SNF, swing, acute and LTAC with the patient/branch customer service representative. ?? The patient/branch customer service representative has been provided a list of facilities within their preferred geographic area. ?? I have requested that the patient/branch customer service representative provide at least three choices for referral. ?? The patient/branch customer service representative have requested referrals to: ?? 1. [facility] ?? 2. [facility] ?? 3. ?? Expected date of discharge: ?? Note routed to Game Show Host who will communicate referrals to facilities and provide any required information. ?? Home Health: No selection (He prefers to not have [facility] come to his workshop/home) OP PT: Gerard Hobbs [facility] [place] DME: 2 FWW. Dialysis: No Community Resources: None Transportation: We discussed that since we cannot determine the exact day or time of surgery, his transportation must be readily available at time of discharge. He will be transported by [facility]. Other: None ?? Anticipated Barriers to Discharge/Special [...] of care planning. ?? Oly Alonso Pager: [phone] Chart reviewed and had a message from Oly that pt would like referrals made to [facility] and [facility] at d/c. Pt is still in the OR but will be coming to [facility]W post-op. I am unsure of how he will transport. * Op Note - Pineda Montague MD - 01/15/2017 7:41 AM EDT [facility] Operative Note Patient Name: Shree Ortez Jr. : [id number] MR#: [id number] Date of surgery: 01/15/2017 Preoperative diagnosis: Left hip osteoarthritis Postoperative diagnosis: Left hip osteoarthritis Procedure: Left total hip arthroplasty Anesthesia: General Surgeon: Pineda Montague MD Child Day Care Provider: Jody Camejo MD Estimated blood loss: 550 cc Fluids: 600 cc Urine output: Due to Void Drains: None Complications: None Implants: 1. 12 Corail coxa vara femoral stem 2. 54 mm [place] 100 Gription acetabular shell 3. 36 x [...] IMPLANTABLE DEVICES SCAN 01/18/2017 12:00 AM EDT TILE TRIMMER SCAN 01/18/2017 12:00 AM EDT HEMOGRAM Routine [...] SCAN EXT O RDR/RSLT * SCAN DOC: TILE TRIMMER (01/18/2017 12:00 AM EDT) Anatomical Region Laterality Modality Other Narrative 01/18/2017 12:00 AM EDT Ordered by an unspecified provider. Scanning Provider MEDIA MGR SCAN EXT O RDR/RSLT * (ABNORMAL) Differential, Automated (01/17/2017 4:37 AM EDT) Neutrophil % 80.6 % [facility] Neutrophil Absolute 8.94(H) 1.70 - 6.10 x10(3)/mc L [facility] Lymph % 11.0 % [facility] Lymphocytes Abs 1.2 0.9 - 3.2 x10(3)/mc L [facility] Monocyte % 7.9 % [facility] Monocyte Abs 0.9 0.3 - 0.9 x10(3)/mc L [facility] Eos % 0.0 % [facility] Eosinophils Abs 0.0 0.0 - 0.4 x10(3)/mc L [facility] Basophil % 0.0 % [facility] Baso Absolute 0.0 0.0 - 0.1 x10(3)/mc L [facility] Immature Gran % 0.50 % [facility] Comment: Immature granulocytes(IG's)percentage and absolute count will include metamyelocytes, myelocytes, and promyelocytes. Blood smears from CBCs yielding IG's will be scanned manually for concordance. If this scan disagrees with the automated IG or if promyelocytes are noted, a manual differential will be performed. Immature Gran Absolute 0.06(H) 0.00 - 0.04 x10(3)/mc L [facility] Blood specimen (specimen) 01/17/2017 4:37 AM EDT 01/17/2017 5:01 AM EDT Narrative Resulting Agency Comment Spec In Lab Pineda Montague MD HEMATOLOGY ORDERABLE S [facility] [place] [address] * (ABNORMAL) Hemogram (01/17/2017 4:37 AM EDT) White Blood Cell 11.1(H) 4.0 - 9.5 x10(3)/mc L [facility] Red Blood Cell 3.41(L) 4.58 - 5.54 x10(6)/mc L [facility] Hemoglobin 10.6(L) 13.7 - 16.5 gm/dL [facility] Hematocrit 31.0(L) 40.5 - 48.5 % [facility] Mean Cell Volume 90.9 82.9 - 93.1 fL [facility] Mean Cell Hemoglobin 31.1 27.5 - 32.1 pg [facility] Mean Cell Hemoglobin Concentration 34.2 32.0 - 35.7 gm/dL [facility] Platelet 174 145 - 357 x10(3)/mc L [facility] RDW Standard Deviation 43.2 36.0 - 45.0 fL [facility] RDW coefficient of variation 13.1 11.4 - 13.8 % [facility] Mean Platelet Volume 10.6 7.6 - 12.9 fL [facility] NRBC% auto 0.0 % [facility] NRBC Absolute 0.000 0.000 - 0.000 x10(3)/mc L [facility] Blood specimen (specimen) 01/17/2017 4:37 AM EDT 01/17/2017 5:01 AM EDT Narrative Resulting Agency Comment Spec In Lab Pineda Montague MD HEMATOLOGY ORDERABLE S [facility] [place] [address] * (ABNORMAL) Basic Metabolic Panel (non-fasting) (01/17/2017 4:37 AM EDT) Glucose 126 65 - 199 mg/dL [facility] Comment:Diabetes: >=200 mg/d L plus symptoms Blood Urea Nitrogen 33(H) 10 - 20 mg/dL [facility] Creatinine 1.74(H) 0.80 - 1.50 mg/dL [facility] Comment: Please note that the pediatric reference intervals supplied above were not validated at [facility]. Results from pediatric patients should be interpreted in conjunction to the patient's age, height and muscle mass. Sodium 144 135 - 145 mmol/L [facility] Potassium 4.7 3.5 - 5.0 mmol/L [facility] Comment: Please note: ??Patients with WBC >100,000 may have falsely elevated Potassium levels. ??For accurate Potassium quantification in these patients send serum separator tube (gold top) for subsequent determinations. ??Contact the Clinical Chemistry Laboratory if there are any questions. Chloride 107 98 - 107 mmol/L [facility] Carbon Dioxide 25 22 - 31 mmol/L [facility] Anion Gap 12 5 - 15 mmol/L [facility] Calcium 8.2(L) 8.5 - 10.5 mg/dL [facility] Est Glomerular Filtration Rate 39(L) >=60 [facility] Comment: This estimated GFR (eGFR) [...] the following links into your internet browser. [email or web address] Blood specimen (specimen) 01/17/2017 4:37 AM EDT 01/17/2017 5:01 AM EDT Narrative Resulting Agency Comment Spec In Lab Pineda Montague MD CHEMISTRY ORDERABLES [facility] [place] [address] * (ABNORMAL) Differential, Automated (01/16/2017 3:42 AM EDT) Neutrophil % 84.4 % [facility] Neutrophil Absolute 10.34(H) 1.70 - 6.10 x10(3)/mc L [facility] Lymph % 7.3 % [facility] Lymphocytes Abs 0.9 0.9 - 3.2 x10(3)/mc L [facility] Monocyte % 7.7 % [facility] Monocyte Abs 0.9 0.3 - 0.9 x10(3)/mc L [facility] Eos % 0.0 % [facility] Eosinophils Abs 0.0 0.0 - 0.4 x10(3)/mc L [facility] Basophil % 0.1 % [facility] Baso Absolute 0.0 0.0 - 0.1 x10(3)/mc L [facility] Immature Gran % 0.50 % [facility] Comment: Immature granulocytes(IG's)percentage and absolute count will include metamyelocytes, myelocytes, and promyelocytes. Blood smears from CBCs yielding IG's will be scanned manually for concordance. If this scan disagrees with the automated IG or if promyelocytes are noted, a manual differential will be performed. Immature Gran Absolute 0.06(H) 0.00 - 0.04 x10(3)/mc L [facility] Blood specimen (specimen) 01/16/2017 3:42 AM EDT 01/16/2017 4:07 AM EDT Narrative Resulting Agency Comment Spec In Lab Pineda Montague MD HEMATOLOGY ORDERABLE S [facility] [place] [address] * (ABNORMAL) Hemogram (01/16/2017 3:42 AM EDT) White Blood Cell 12.2(H) 4.0 - 9.5 x10(3)/[facility] Red Blood Cell 3.72(L) 4.58 - 5.54 x10(6)/ L [facility] Hemoglobin 11.9(L) 13.7 - 16.5 gm/dL [facility] Hematocrit 33.7(L) 40.5 - 48.5 % [facility] Mean Cell Volume 90.6 82.9 - 93.1 fL [facility] Mean Cell Hemoglobin 32.0 27.5 - 32.1 pg [facility] Mean Cell Hemoglobin Concentration 35.3 32.0 - 35.7 gm/dL [facility] Platelet 172 145 - 357 x10(3)/ L [facility] RDW Standard Deviation 42.7 36.0 - 45.0 [facility] RDW coefficient of variation 13.1 11.4 - 13.8 % [facility] Mean Platelet Volume 10.4 7.6 - 12.9 fL [facility] NRBC% auto 0.0 % [facility] NRBC Absolute 0.000 0.000 - 0.000 x10(3)/ L [facility] Blood specimen (specimen) 01/16/2017 3:42 AM EDT 01/16/2017 4:07 AM EDT Narrative Resulting Agency Comment Spec In Lab Pineda Montague MD HEMATOLOGY ORDERABLE S [facility] [place] [address] * (ABNORMAL) Basic Metabolic Panel (non-fasting) (01/16/2017 3:42 AM EDT) Glucose 134 65 - 199 mg/dL [facility] Comment:Diabetes: >=200 mg/d L plus symptoms Blood Urea Nitrogen 26(H) 10 - 20 mg/dL [facility] Creatinine 1.66(H) 0.80 - 1.50 mg/dL [facility] Comment: Please note that the pediatric reference intervals supplied above were not validated at [facility]. Results from pediatric patients should be interpreted in conjunction to the patient's age, height and muscle mass. Sodium 138 135 - 145 mmol/L [facility] Potassium 4.4 3.5 - 5.0 mmol/L [facility] Comment: Please note: ??Patients with WBC >100,000 may have falsely elevated Potassium levels. ??For accurate Potassium quantification in these patients send serum separator tube (gold top) for subsequent determinations. ??Contact the Clinical Chemistry Laboratory if there are any questions. Chloride 103 98 - 107 mmol/L [facility] Carbon Dioxide 22 22 - 31 mmol/L [facility] Anion Gap 13 5 - 15 mmol/L [facility] Calcium 8.4(L) 8.5 - 10.5 mg/dL [facility] Est Glomerular Filtration Rate 42(L) >=60 [facility] Comment: This estimated GFR (eGFR) [...] the following links into your internet browser. [email or web address] Blood specimen (specimen) 01/16/2017 3:42 AM EDT 01/16/2017 4:07 AM EDT Narrative Resulting Agency Comment Spec In Lab Pineda Montague MD CHEMISTRY ORDERABLES [facility] [place] [id number] * XR Pelvis (Generic) (01/15/2017 12:05 PM [...] not need a radiologist interpretation. ?? Pineda W Montague MD IMG FLUORO ORDERABLE S [facility] [place], [place] documented in this encounter Visit Diagnoses Diagnosis Primary osteoarthritis of left hip Primary localized osteoarthrosis, pelvic region and thigh Primary osteoarthritis of left hip Primary localized osteoarthrosis, pelvic region and thigh Primary osteoarthritis of left hip Primary localized [...] Given 01/16/2017 8:51 AM EDT 81 mg BUpivacaine-EPINEPHrine 0.25 %-1:200,000 injection ONCE PRN, Starting on Fri01/15/17 at 0835, Until Fri01/17/17 at 1549, Intra-Operative (Intra-Procedure), Routine Given 01/15/2017 8:35 AM EDT 50 mLs 19- Surgical Site cloNIDine injection ONCE PRN, Starting on Fri01/15/17 at 0836, Until Fri01/17/17 at 1549, Intra-Operative (Intra-Procedure), Routine Given 01/15/2017 8:36 AM EDT 50 mcg 19- Surgical Site ketorolac (TORADOL) injection ONCE PRN, Starting on Fri01/15/17 at 0836, Until Fri01/17/17 at 1549, Intra-Operative (Intra-Procedure), Routine Given 01/15/2017 8:36 AM EDT 30 mg 19- Surgical Site lactated ringers infusion 1,000 mL 1,000 mL, at 100 mL/hr, Intravenous, CONTINUOUS, Starting on Fri01/15/17 at 1145, Until Fri01/17/17 at 1549, Recovery (Recovery-Hospital Unit) New Bag 01/15/2017 3:37 PM EDT 1,000 mLs 100 mL/hr multivitamin Ekdn-Of-OX-Min (THERAPEUTIC-M) 27-0.4 mg tablet 1 tablet 1 [...] Hudson RN)1421 (Given - Provider: Aydee Smith RN)2106 (Given - Provider: Inez Caldwell RN) 0812 (Given - Provider: Patti Boo RN)1333 (Given - Provider: Patti Boo RN) aspirin EC tablet 81 mg 81 mg, Oral, 2 TIMES DAILY, First dose on Fri01/15/17 at 2100, Until Discontinued, Routine 2040 (Given - Provider: Nina Hudson, DEANNA) 0851 (Given - Provider: Allison Crowley, DEANNA)210 (Given - Provider: Inez Caldwell RN) 08 (Given - Provider: Patti Boo RN) ceFAZolin (ANCEF) 1g in dextrose 5% 50mL [...] (Intra-Procedure), Indication for (Active or Suspected): Prophylaxis 08 (Given - Provider: Mahsa Zabala CRNA) dexamethasone (DECADRON) tablet 4 mg (COMPLETED) 4 mg, Oral, DAILY, 2 doses, First dose on Fri01/15/17 at 1545, Last dose on Fri01/16/17 at 0900, Routine 1721 (Given - Provider: Aydee Smith RN) 0851 (Given - Provider: Allison Crowley, DEANNA) gabapentin (NEURONTIN) capsule 300 mg (COMPLETED) 300 [...] Hudson RN) 2105 (Given - Provider: Inez Caldwell RN) ketorolac (TORADOL) injection 15 mg () 15 [...] (Given - Provider: Nina Hudson RN) multivitamin Dziw-Gd-WB-Min (THERAPEUTIC-M) 27-0.4 mg tablet 1 tablet 1 [...] 0813 (Given - Provider: Patti Boo, DEANNA) polyethylene glycol (MIRALAX) packet 17 g 17 g, Oral, 2 TIMES DAILY, First dose on Fri01/15/17 at 2100, Until Discontinued, Routine 2040 (Given - Provider: Nina Hudson RN) 08 (Given - Provider: Allison Crowley, DEANNA)2105 (Given - Provider: Inez Caldwell, DEANNA) 0814 (Given - Provider: Patti Boo, RN) senna-docusate (PERICOLACE) 8.6-50 mg per tablet 2 tablet 2 tablet, Oral, 2 TIMES DAILY, First dose on Fri01/15/17 at 2100, Until Discontinued, Routine 2040 (Given - Provider: Nina Hudson RN) 08 (Given - Provider: Allison Crowley, DEANNA)2105 (Given - Provider: Inez Caldwell, DEANNA) 813 (Given - Provider: Patti Boo, DEANNA) sodium chloride 0.9 % flush 5 mL 5 mL, Intravenous, 2 TIMES DAILY, First dose on Fri01/15/17 at 2100, Until Discontinued, Recovery (Recovery-Hospital Unit), Routine 2040 (Given - Provider: Nina Hudson RN) 09 (Not Given - Provider: Allison Crowley RN - Reason: See comment - Comment: infusing)2129 (Given - Provider: Inez Caldwell RN) 813 (Given - Provider: Patti Boo, DEANNA) [...] patient unable to take PO, may give AL if ordered, Routine BUpivacaine-EPINEPHrine 0.25 %-1:200,000 injection [...] Last dose on Fri01/16/17 at 2100, Routine Followed by gabapentin (NEURONTIN) [...] Recovery documented in this encounter Care Teams Tuberculosis Specialist Relationship Specialty Start Date End Date Duke Ramos MD [facility] [address] [place] [address] PCP - General Family Medicine 08/23/16 06/28/18 documented as of this encounter
--- OUTSIDE RECORDS SUMMARY | 2024-07-19 16:49 | XMS_ITS | Encounter Summary ---
Author Organization [facility] [address] [place] [address] Care Team Providers Care Talent Program Manager Name Role Phone Unavailable Primary Care Provider Unavailabl e Encounter Details Date Type Department Care Team (Latest Contact Info) Description 09/11/2015 12:16 PM EST - 09/11/2015 11:59 PM EST Hospital Encounter CT Scan at [facility], [place] [place] [address] Jarocho Jenkins MD [address] [place] [address] History of kidney cancer Discharge Disposition: Home [...] Name Priority Date/Time Associated Diagnosis Comments CT ABD/PELVIS W OR WO CONTRAST Routine 09/11/2015 2:08 PM EST History of kidney cancer documented in this encounter Results * CT abdomen & pelvis with/WO contrast (09/11/2015 2:08 PM EST) Anatomical Region Laterality Modality Abdomen, Pelvis Computed Tomogra phy Impressions 09/11/2015 4:48 PM EST IMPRESSION: No evidence of recurrent or metastatic disease, status post left nephrectomy. I have personally reviewed the image(s) and the residents interpretation and agree with the findings, Nay Ricketts at 09/11/2015 4:48 PM Narrative 09/11/2015 4:48 PM EST EXAMINATION: CT ABDOMEN AND PELVIS WITH/WO CONTRAST CLINICAL HISTORY: ct abd w/ and w/o iv contrast, r/o recurrence s/p partial nephrectomy TECHNIQUE: Helical CT of the abdomen pelvis was obtained before and after the administration of intravenous contrast. 110 cc of Visipaque 320 was administered. Delayed images were also obtained. COMPARISON: CT abdomen 12/15/2014 FINDINGS: Included portions of the lung bases are clear. No pleural effusion. The liver is normal in appearance without focal lesions. No intra or extrahepatic biliary ductal dilation. No calcified gallstones. Normal caliber gallbladder wall. The spleen, pancreas and adrenal glands are unremarkable. Patient is status post left nephrectomy. No evidence of local recurrence. The right kidney is normal in appearance with normal excretion of contrast on the delayed images. No bowel distention or wall thickening. No mesenteric inflammation. No ascites, free air or fluid collection. No abdominal or pelvic adenopathy. The urinary bladder is normal. Degenerative osseous changes in the pelvis and spine. No suspicious osseous lesions. Procedure Note Nay Ricketts MD - 09/11/2015 EXAMINATION: CT ABDOMEN AND PELVIS WITH/WO CONTRAST CLINICAL HISTORY: ct abd w/ and w/o iv contrast, r/o recurrence s/ppartial nephrectomy TECHNIQUE: Helical CT of the abdomen pelvis was obtained before and afterthe administration of intravenous contrast. 110 cc of Visipaque 320 was administered. Delayed images were also obtained. COMPARISON: CT abdomen 12/15/2014 FINDINGS: Included portions of the lung bases are clear. No pleural effusion. The liver is normal in appearance without focal lesions. No intra or extrahepatic biliary ductal dilation. No calcified gallstones. Normalcaliber gallbladder wall. The spleen, pancreas and adrenal glands areunremarkable. Patient is status post left nephrectomy. No evidence of local recurrence.The right kidney is normal in appearance with normal excretion of contrast onthe delayed images. No bowel distention or wall thickening. No mesenteric inflammation. Noascites, free air or fluid collection. No abdominal or pelvic adenopathy. Theurinary bladder is normal. Degenerative osseous changes in the pelvis and spine. No suspiciousosseous lesions. IMPRESSION IMPRESSION: No evidence of recurrent or metastatic disease, status post leftnephrectomy. I have personally reviewed the image(s) and the residents interpretationand agree with the findings, Nay Ricketts at 09/11/2015 4:48 PM Jarocho Jenkins MD IMG CT ORDERABLES documented in this encounter Visit Diagnoses Diagnosis History of kidney cancer Personal history of malignant neoplasm of kidney documented in this encounter Administered Medications Inactive Administered Medications - up to 3 most recent administrations Medication Order MAR Action Action Date Dose Rate Site iohexol (OMNIPAQUE) 350 mg/mL solution 38,500 mg 38,500 mg (110 mL), Intravenous, ONCE PRN, 1 dose, Starting on Fri09/11/15 at 1409, Until Fri09/11/15 at 1409, Per Protocol, Routine Given 09/11/2015 2:09 PM EST 38,500 mg documented in this encounter
--- OUTSIDE RECORDS SUMMARY | 2024-07-19 16:49 | XMS_ITS | Encounter Summary ---
Author Organization [facility] Address [facility] [address] [place] [address] Care Team Providers Care Inspector Conveyor Line Name Role Phone Duke Ramos MD Primary Care Provider [phone] Encounter Details Date Type Department Care Team (Late st Contact Info) Description 12/23/2016 12:00 PM EDT Notes Only Orthopaedics at [facility] [place] [address] Social History Tobacco Use Types Packs/Day Years [...] encounter Progress Notes * Oly Alonso - 12/23/2016 12:00 PM EDT Office of Care Management Initial Assessment Oly Alonso reviewed record and discussed patient with Care Team. Source of Information: Shree Ortez Introduced self/reviewed role; services accepted. Reason for Hospitalization: Primary OA of left hip. Left JOHN on 01/15/17. Past Medical History: Diagnosis Date ??? Cancer of kidney Left ??? HTN (hypertension) Hospitalizations Within the Past 30 Days: Anticipated Length Of Stay (If known): Current Decision-Making Capacity: He is capable of making his own medical decisions. Advance Care Planning: He has an ADV DIR in his medical record. His designated agent is his brother, Armond Ortez. Current Coping/Education/Information Needs: He appears to understand the hospital course and discharge plans. Current Functional Ability: Functional Status Prior to Admission: He ambulates independently without an assistive device. He does use a walking stick when walking on uneven ground. He is able to do his ADL without any assistance. He drives. 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 Home Environment: He lives in a 2 level workshop. His bedroom is on the main level. There are 2 stairs in without a railing. He does not have a bathroom. He composts his urine and feces outside. He has a watertank he uses to wash and bathe. Social & Family Supports/Community Resources: He has a friend that comes to town that checks inon him. He could ask his brothers but he prefers not too. Behavioral Health History: None Substance Use/Abuse: None Other Pertinent/Service Specific Information: I discussed with the patient the potential avenues ofdischarge postoperatively. We discussed qualifications to go to a group home facility. We discussed Medicare guidelines for admission into a group home facilityas well as transportation, namely, ambulance and the Medicare guidelines associated with ambulance or wheelchair vans. We discussed the purpose and services provided by [facility]. I communicated that we will not know until after surgery what will be the best course of discharge for the patient based on medical necessity and that thisis why we plan for different courses of discharge. I informed the patient that they will be workingwith a account executive healthcare after surgery to facilitate the discharge plan. I encouraged the patient to call me with any questions or concerns prior to the surgery as well as when they discharge home. Health/Prescription Coverage: Primary Insurance: [facility] Secondary Insurance: None Prescription Coverage: [facility]: [facility] [address] [place] [address] Other: None Primary Care Provider: Duke Ramos MD [phone] Patient/Caregiver Goals of Treatment: He wants to be able to do woodworking. Potential Needs for Transition of Care: Rehab/SNF: [facility] (His niece runs the place and his sister is presently there. He met with the brownfield program coordinator at [facility] and was told they will accept his insurance.) [facility] Based on discussions with the multi-disciplinary healthcare team, the patient would benefit from - level of care at discharge. ?? I have met with the patient/wholesale representative to discuss discharge planning needs. I have provided the [facility], Office of Care Management letter from the [employer] pertaining to rehab referrals. I have also provided a letter describing our affiliations within the [facility] and educated them about their right to choose where referrals are placed. ?? I reviewed the different levels of rehab including SNF, swing, acute and LTAC with the patient/wholesale representative. ?? The patient/wholesale representative has been provided a list of facilities within their preferred geographic area. ?? I have requested that the patient/wholesale representative provide at least three choices for referral. ?? The patient/wholesale representative have requested referrals to: ?? 1. [facility] ?? 2. [facility] ?? 3. ?? Expected date of discharge: Note routed to Cell Installer who will communicate referrals to facilities and provide any required information. Home Health: No selection (He prefers to not have [facility] come to his workshop/home) OP PT: [facility] MD DME: 2 FWW. Dialysis: No Community Resources: None Transportation: We discussed that since we cannot determine the exact day or time of surgery, his transportation must be readily available at time of discharge. He will be transported by [employer]. Other: None Anticipated Barriers to Discharge/Special Considerations: None Plan: He prefers to go to [facility]. A member of the Care Management team will continue to monitor progress, follow for continuity of care and assist with transition of care planning. Oly Alonso Pager: [phone] documented in this encounter Plan of Treatment Scheduled Procedures Name Priority Associated Diagnoses Date/Ti me EGD, UPPER GI ENDOSCOPY (WRV U 2.09) Esophageal dysphagia Encounter for colorectal cancer screening COLONOSCOPY, DIAGNOSTIC (WRV U 3.26) Esophageal dysphagia Encounter for colorectal cancer screening documented as of this encounter Visit Diagnoses Not on filedocumented in this encounter Care Teams Inspector Conveyor Line Relationship Specialty Start Date End Date Duke Ramos MD [address] [place] [address] PCP - General Family Medicine 08/23/16 06/28/18 documented as of this encounter
--- OUTSIDE RECORDS SUMMARY | 2024-07-19 16:49 | XMS_ITS | Encounter Summary ---
Author Organization [facility] Address [facility] [address] [place] [address] Care Team Providers Care Vp Organizational Development Name Role Phone Duke Ramos MD Primary Care Provider [phone] Encounter Details Date Type Department Care Team (Latest Contact Info) Description 10/24/2016 10:05 AM EST - 10/24/2016 11:59 PM [facility] Hospital Encounter XRay at [address] [place] [address] Vance Jose MD [facility] [place] [address] Primary osteoarthritis of left shoulder Discharge Disposition: Home Social History Tobacco Use [...] Name Priority Date/Time Associated Diagnosis Comments XR FLUORO INJECTION DRAINAGE JOINT LG LEFT Routine 10/24/2016 10:55 AM EST Primary osteoarthritis of left shoulder documented in this encounter Results * XR Fluoro Injection [...] pre- procedural time-out was performed as per [facility] protocol. The patient was placed supine on [...] A pre- proceduraltime-out was performed as per [facility] protocol. The patient was placed supine on [...] osteoarthrosis, shoulder region documented in this encounter Administered Medications Inactive Administered Medications - up to 3 most recent administrations Medication Order MAR Action Action Date Dose Rate Site ROpivacaine (PF) 5 mg/mL (0.5 %) 4 mL with triamcinolone acetonide 40 mg injection Intra-articular, ONCE, 1 dose, On Natty 10/24/16 at 1115 Given 10/24/2016 10:40 AM EST documented in this encounter Care Teams Vp Organizational Development Relationship Specialty Start Date End Date Duke Ramos MD [address] [place] [address] PCP - General Family Medicine 08/23/16 06/28/18 documented as of this encounter
--- OUTSIDE RECORDS SUMMARY | 2024-07-19 16:49 | XMS_ITS | Encounter Summary ---
Author Organization [facility] Address [facility] [place] [place] [place] [address] Care Team Providers Care Resident Care Technician Name Role Phone Unavailable Primary Care Provider Unavailabl e Encounter Details Date Type Department Care Team (Latest Contact Info) Description 07/26/2016 - 07/26/2016 12:14 AM EDT Hospital Encounter Radiology Library at [facility] [place] [address] Vance Jose MD [facility] [place] [address] Pain Discharge Disposition: Home Social History Tobacco [...] Diagnosis Comments FILM LIBRARY STORAGE ONLY DX HIP Routine 07/26/2016 12:00 AM EDT Pain documented in this encounter Results * Film Library- Storage Only DX Hip (07/26/2016 12:00 AM EDT) Narrative AFTAB MCKNIGHT - 10/22/2016 8:42 AM EST This exam is for storage only and is auto-finalizing. Vance Jose MD [facility] FILM LIBRARY ORD ERABLES [place], [place] documented in this encounter Visit Diagnoses Diagnosis Pain Generalized pain documented in this encounter
--- OUTSIDE RECORDS SUMMARY | 2024-07-19 16:49 | XMS_ITS | Encounter Summary ---
Author Organization [facility] [address] Care Team Providers Care Male Model Name Role Phone Duke Ramos MD Primary Care Provider +1 [phone] Encounter Details Date Type Department Care Team (Late st Contact Info) Description 10/22/2016 3:40 PM EST Office Visit Urology at [facility] [place] [id number] Jarocho Jenkins MD [address] [place] [address] History of kidney cancer Social History Tobacco [...] Sign Reading Time Taken Comments Blood Pressure 151/101 10/22/2016 3:19 PM EST Pulse 82 10/22/2016 3:19 PM EST Temperature 36.8 ??C (98.2 ??F) 10/22/2016 3:19 PM ES T Respiratory Rate - - Oxygen Saturation 97% 10/22/2016 3:19 PM EST Inhaled Oxygen Concentration - - Weight - - Height - - Body Mass Index - - documented in this encounter Progress Notes * Jarocho Jenkins MD - 10/22/2016 3:40 PM EST Mr. Ortez is a pleasant 66 year old man with a history of a left renal mass who presents for f/u. ?? His mass was found incidentally during a workup for an inguinal hernia. He was found to have 5cm endophytic enhancing left renal mass suspicious for RCC. His staging exams were normal. ?? He underwent a laparoscopic radical nephrectomy in 06/05. This was well tolerated. ?? 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 ---Pathologic Diagnosis--- Specimen type: Radical nephrectomy Histologic type: Renal cell carcinoma, clear cell type Kimberli nuclear grade: 2/4 Laterality: Left Tumor site: Lower pole Focality: Unifocal Tumor size: - Greatest dimension: 4.7 cm - Additional dimensions: 4.5 x 1.4 cm Macroscopic extent of tumor: Tumor extension into major veins Margins: Margins uninvolved by invasive carcinoma Adrenal gland: Not present Venous (large vessel) invasion: Present (A5,6) Lymphatic (small vessel) invasion: Absent Additional pathologic findings: None TNM Staging (AJCC, 7th ed., 2009): Primary tumor stage: pT3a (tumor extends into renal vein or its segmental branches, perirenal and/or renal sinus fat, but not beyond Gerota???s fascia) Regional lymph nodes: pNX (cannot be assessed) Distant metastasis: pMX (cannot be assessed or not applicable) He has been on surveillance. He feels well. No hematuria, flank pain. Some baseline urgency and frequency, no dysuria. Nocturia x 3. Good FOS. CXR, CMP normal. CT shows no local local recurrence or mets, though read pending. Exam: S NTND No CVAT Incisions healed ?? A: pT3a ccRCC s/p lap nephrectomy, doing well ? P: F/u final CT read Check UA RTC 6 mo w/ CT, CXR, CMP; then annually The importance of surveillance was emphasized ?? His questions were answered in detail; 16 of 17 min spent in counseling and coordination of care. documented in this encounter Plan of Treatment Scheduled Procedures Name Priority Associated Diagnoses Date/Ti me EGD, UPPER GI ENDOSCOPY (WRV U 2.09) Esophageal dysphagia Encounter for colorectal cancer screening COLONOSCOPY, DIAGNOSTIC (WRV U 3.26) Esophageal dysphagia Encounter for colorectal cancer screening documented as of this encounter Procedures Procedure Name Priority Date/Time Associated Diagnosis Comments URINE CULTURE Routine 10/22/2016 5:09 PM EST History of kidney cancer URINALYSIS WITH REFLEX CULTURE Routine 10/22/2016 3:54 PM EST History of kidney cancer documented [...] radiograph). Jarocho Jenkins MD IMG DX ORDERABLES * (ABNORMAL) Comprehensive metabolic panel (non-fasting) (06/19/2017 11:21 AM EDT) Glucose 96 65 - 199 mg/dL [facility] Comment:Diabetes: >=200 mg/d L plus symptoms Blood Urea Nitrogen 24(H) 10 - 20 mg/dL [facility] Creatinine 1.49 0.80 - 1.50 mg/dL [facility] Comment: Please note that the pediatric reference intervals supplied above were not validated at [facility]. Results from pediatric patients should be interpreted in conjunction to the patient's age, height and muscle mass. Sodium 143 135 - 145 mmol/L [facility] Potassium 4.7 3.5 - 5.0 mmol/L [facility] Comment: Please note: ??Patients with WBC >100,000 may have falsely elevated Potassium levels. ??For accurate Potassium quantification in these patients send serum separator tube (gold top) for subsequent determinations. ??Contact the Clinical Chemistry Laboratory if there are any questions. Chloride 105 98 - 107 mmol/L [facility] Carbon Dioxide 26 22 - 31 mmol/L [facility] Anion Gap 12 5 - 15 mmol/L [facility] Calcium 9.3 8.5 - 10.5 mg/dL [facility] Protein, Total 7.4 6.1 - 8.0 gm/dL [facility] Albumin 4.1 3.2 - 5.2 gm/dL [facility] Aspartate Aminotransferase 23 0 - 39 unit/L [facility] Alanine Aminotransferase 30 0 - 55 unit/L [facility] Alkaline Phosphatase 130(H) 40 - 120 unit/L [facility] Bilirubin, Total 0.4 0.2 - 1.3 mg/dL [facility] Est Glomerular Filtration Rate 47(L) >=60 [facility] Comment: This estimated GFR [...] the following links into your internet browser. [email or web address] Blood specimen (specimen) 06/19/2017 11:21 AM EDT 06/19/2017 11:26 AM EDT Narrative Resulting Agency Comment Spec In Lab Jarocho Jenkins MD CHEMISTRY ORDERABLES [facility] [place] [address] * Urine culture Clean Catch Urine (10/22/2016 5:09 PM EST) Urine Culture No growth (Less than 1,000 cfu/ml). [facility] Urine specimen obtained by clean catch procedure (specimen) 10/22/2016 5:09 PM EST 10/22/2016 5:09 PM EST Narrative Resulting Agency Comment Spec In Lab Jarocho Jenkins MD MICROBIOLOGY - GENER AL ORDERABLES [facility] [place] [address] * (ABNORMAL) Urinalysis with reflex Culture (10/22/2016 3:54 PM EST) Glucose, Urine Dipstick Negative Negative mg/dL [facility] Protein, Urine Dipstick Negative Negative mg/dL [facility] Bilirubin, Urine Dipstick Negative Negative mg/dL [facility] Comment: Clinical correlation required for positive Urine Bilirubin results as false positive may occur with some drugs and drug related products. If a false positive is suspected a serum total bilirubin should be considered if clinically indicated. Urobilinogen, Urine Dipstick Normal Normal mg/dL [facility] pH, Urn (dipstick) 6.0 5.0 - 8.0 [facility] Blood, Urine Dipstick Negative Negative mg/dL [facility] Ketone, Urine Dipstick Negative Negative mg/dL [facility] Nitrite, Urine Dipstick Negative Negative [facility] Leukocytes, Urine Dipstick Negative Negative [facility] Appearance, Urine Dipstick Clear Clear [facility] Specific Halsey Urine Automated >1.035(H) 1.002 - 1.030 [facility] Color, Urine Dipstick Straw Yellow [facility] RBC, Urine 1 0 - 3 /HPF [facility] WBC, Urine Not Present 0 - 3 /HPF [facility] Reflex to Culture No [facility] Urine specimen obtained by clean catch procedure (specimen) 10/22/2016 3:54 PM EST 10/22/2016 5:01 PM EST Narrative Resulting Agency Comment Spec In Lab Jarocho Jenkins MD URINE ORDERABLES [facility] [place] [address] documented in this encounter Visit Diagnoses Diagnosis History of kidney cancer Personal history of malignant neoplasm of kidney History of kidney cancer Personal history of malignant neoplasm of kidney documented in this encounter Care Teams Male Model Relationship Specialty Start Date End Date Duke Ramos MD [address] [address] PCP - General Family Medicine 08/23/16 06/28/18 documented as of this encounter
--- OUTSIDE RECORDS SUMMARY | 2024-07-19 16:49 | XMS_ITS | Encounter Summary ---
Author Organization [facility] [place] [place] [address] Care Team Providers Care Training And Development Project Leader Name Role Phone Unavailable Primary Care Provider Unavailabl e Encounter Details Date Type Department Care Team (Late st Contact Info) Description 09/12/2015 Telephone Urology at [facility] [place] [address] Jarocho Jenkins MD [address] [place] [address] Social History Tobacco Use Types Packs/Day Years [...] Encounter - Jarocho Jenkins MD - 09/12/2015 9:10 AM EST error documented in this encounter Plan of Treatment Scheduled Procedures Name Priority Associated Diagnoses Date/Ti me EGD, UPPER GI ENDOSCOPY (WRV U 2.09) Esophageal dysphagia Encounter for colorectal cancer screening COLONOSCOPY, DIAGNOSTIC (WRV U 3.26) Esophageal dysphagia Encounter for colorectal cancer screening documented as of this encounter Visit Diagnoses Not on filedocumented in this encounter
--- OUTSIDE RECORDS SUMMARY | 2024-07-19 16:50 | XMS_ITS | Encounter Summary ---
Author Organization [facility] Address [facility] [place] [address] Care Team Providers Care It Director Name Role Phone Ivanna Hughes APRN Primary Care Provider +1- [phone] Encounter Details Date Type Department Care Team (Late st Contact Info) Description 06/07/2014 7:25 AM EDT Anesthesia [place] [address] Fly Whitten MD [facility] [address] [place] [address] Anesthesia Record Procedure Summary Procedure Name Responsible Anesthesiologist Anesthesia Start Time Anesthesia Stop Time @LAPAROSCOPY, RADICAL NEPHRECTOMY (WRVU 25.06) (Left: Flank) Fly Whitten MD 06/07/14 0725 06/07/14 1134 Events Date Time Event Comment 06/07/2014 0656 0725 AN Verify 0725 Start 0738 An Start Data 0745 An Induction 0749 An Intubation 0754 Anesthesia Ready 0813 Procedure Start 0816 Quick Note insuflation 0939 Break/Relief In FLY WHITTEN MD 0955 Break/Relief Out 1041 Quick Note desuflation 1114 Extubation/LMA Out 1116 an stop data 1134 Stop Meds Name Total Midazolam 2 mg fentaNYL 250 mcg lidocaine IV 100 mg propofol 200 mg Rocuronium 100 mg PHENYLephrine 800 mcg ePHEDrine 25 mg ondansetron 4 mg dexAMETHasone 4 mg Neostigmine 4 mg Glycopyrrolate 0.4 mg ceFAZolin (ANCEF) 2g in dextrose 5% 50 m L 2 g HYDROmorphone 1.2 mg lactated ringers infusion 1,000 mL 1,500 mL * Agents Name O2 Air N2O Sevoflurane (et) * Blood No blood administrations on file. Lines, Drains, and Airways Type Details Placement Removal Incision 06/07/14; abdomen; laparoscopic punctures (specify) (4 sites); 05/20/22 (LDA cleanup utility RA#[id number]); 1715 (LDA cleanup utility RA#[id number]) 06/07/14 0000 by Jazmín Mcmillan RN 05/20/22 1715 by Dougie Blackmon Incision 06/07/14; upper quadrant; 09/26/14; 1501 06/07/14 0000 by Jazmín Mcmillan RN 09/26/14 1501 by Carl Frederick, DEANNA (RETIRED) Peripheral IV Line - Single Lumen 06/07/14; 0646; metacarpal vein right (top of hand); [id number] catheter system; 18 gauge; 0; 06/10/14; 1316 06/07/14 0646 by Moon Mills RN 06/10/14 1316 by Janet Bonilla RN NG/OG Tube orogastric; 16 Fr; Secured; 06/07/14 06/07/14 0726 by 06/07/14 0000 by Ana Lafleur RN ETT Mask Ventilation: Adjunct (2); ETT Type: Cuffed; ETT Size: 8 mm; Mac Blade: 4; Notes: Asleep, Pre-O2, Stylette; Attempts: 1; Laryngoscopy Grade: 1; ETT Placement Verified By: Auscultation, Capnometry, Visual; Secured at Teeth: 22 cm; Inserted by: gisella; Removal Date: 06/07/14; Removal Time: 1114 06/07/14 0803 by 06/07/14 1114 by Fernando Govea MD Urethral Catheter 06/07/14; 0822; indwelling double lumen catheter; 100% silicone; 16; inserted at this facility (by Dr. Jenkins.); 1; 5; 10; none; drainage bag to dependent drainage; 06/08/14; 1020 06/07/14 0822 by Jazmín Mcmillan RN 06/08/14 1020 by Vita Thomas RN documented in this encounter Social History Tobacco [...] OR Notes * Anesthesia Postprocedure Evaluation - Fernando Govea MD - 06/07/2014 4:16 PM EDT Patient: Shree Ortez Jr. Procedure(s) Performed: Procedure(s): @LAPAROSCOPY, RADICAL NEPHRECTOMY Actual Anesthetic: general Patient location: floor Post-op pain: Adequate analgesia with prn oxycodone Post-op nausea: no nausea or vomiting Last Vitals: Filed Vitals: 06/07/14 1557 BP: 126/78 Pulse: 88 Temp: 37 ??C (98.6 ??F) Resp: 16 Post-op cardiovascular and respiratory status: is stable Level of consciousness: awake, alert and oriented, initial delirium resolved Complications: no apparent complications and tolerated the procedure well Fluid Status: normal * Anesthesia Preprocedure Evaluation - Fernando Govea MD - 2014 3:13 PM EDT Images from the original note were not included. Pre-Anesthesia Evaluation for: Shree Ortez Jr. a 64 y.o. male. Procedure(s): @LAPAROSCOPY, RADICAL NEPHRECTOMY Patient Active Problem List Diagnosis ??? Amputation of finger tip No past medical history on file. No past surgical history on file. History Substance Use Topics ??? Smoking status: Former Smoker Quit date: 05/28/1970 ??? Smokeless tobacco: Never Used ??? Alcohol Use: No History Drug Use No No Known Allergies Medications: MAR and/or home medications have been reviewed. Physical Exam: There were no vitals filed for this visit. There is no height or weight on file to calculate BMI. Airway Assessment: Mallampati: II TM distance: >3 FB Neck ROM: full Cardiovascular Assessment: Rhythm: regular Rate: normal (+) murmur Pulmonary Assessment: breath sounds clear to auscultation (-) wheezes [place] [facility] [place] Patient is wearing No contact(s). IV access: Peripheral line Other exam findings: 18G R hand Anesthesia Plan: ASA 2 general, with a(n) intravenous induction Assessment: Shree Ortez Jr. is a 64 y.o. male with a PMH significant for HTN but with minimal medical care most of his life, sx of RAÚL (snoring and awaking at night), activity limited by hernias but easily get SOB with hills and stairs, who is scheduled for laparoscopic left nephrectomy for a renal mass. K: 4.0 Creatinine: 1.11 Appropriately NPO Anesthetic history/Previous airway: tolerated GA for open appy in 70s, no FH of anesthetic trouble Plan: - GETA - Special Monitoring/Lines: possible 2nd PIV and possible A-line - Anesthesia consent signed - Consented for blood transfusions - Code Status: Full Code The risks and benefits of our anesthesic plan and viable alternatives were discussed with the patient including the risks of hypotension, arrythmia and the extremely rare risk of or awareness under anesthesia. All of the patient's questions were answered. Region - Other Informed Consent: Anesthetic plan and risks discussed with patient. Use of blood products discussed with patient whom consented to blood products. [facility]: documented in this encounter Plan of Treatment Scheduled Procedures Name Priority Associated Diagnoses Date/Ti nv EGD, UPPER GI ENDOSCOPY (WRV U 2.09) [...] dextrose 5% 50 mL 2 g, Intravenous, ONCE, 1 dose, On Fri06/07/14 at 0645, Redose after 4 hours., Day of Surgery (Day of Procedure), Indication for (Active or Suspected): Prophylaxis Given 06/07/2014 7:44 AM EDT 2 g dexamethasone (DECADRON) injection PRN, Starting on Fri06/07/14 at 0745, Until Fri06/07/14 at 1134, Anesthesia Intra-op, Routine Given 06/07/2014 7:45 AM EDT 4 mg ePHEDrine Sulfate in sodium chloride 0.9% (PF) 50 mg/10 mL (5 mg/mL) injection Syrg PRN, Starting on Fri06/07/14 at 0812, Until Fri06/07/14 at 1134, Anesthesia Intra-op Given 06/07/2014 10:23 AM EDT 15 mg Given 06/07/2014 8:12 AM EDT 10 mg fentaNYL 50mcg/mL injection PRN, Starting on Fri06/07/14 at 0745, Until Fri06/07/14 at 1134, Pain, Anesthesia Intra-op, Routine Given 06/07/2014 7:45 AM EDT 250 mcg glycopyrrolate (ROBINUL) injection PRN, Starting on Fri06/07/14 at 1107, Until Fri06/07/14 at 1134, Anesthesia Intra-op, Routine Given 06/07/2014 11:07 AM EDT 0.4 mg HYDROmorphone (DILAUDID) injection PRN, Starting on Fri06/07/14 at 1014, Until Fri06/07/14 at 1134, Pain, Anesthesia Intra-op, Routine Given 06/07/2014 11:34 AM EDT 0.4 mg Given 06/07/2014 10:38 AM EDT 0.4 mg Given 06/07/2014 10:14 AM EDT 0.4 mg lactated ringers infusion 1,000 mL 1,000 mL, at 100 mL/hr, Intravenous, CONTINUOUS, Starting on Fri06/07/14 at 0645, Until Fri06/07/14 at 1135, Day of Surgery (Day of Procedure) New Bag 06/07/2014 8:54 AM EDT mL New Bag 06/07/2014 6:45 AM EDT 1,000 mLs 100 mL/hr lidocaine (PF) (XYLOCAINE) 100 mg/5 mL (2 %) injection PRN, Starting on Fri06/07/14 at 0745, Until Fri06/07/14 at 1134, Anesthesia Intra-op, Routine Given 06/07/2014 7:45 AM EDT 100 mg midazolam (PF) (VERSED) 1 mg/mL injection PRN, Starting on Fri06/07/14 at 0725, Until Fri06/07/14 at 1134, Sleep, Anesthesia Intra-op, Routine Given 06/07/2014 7:25 AM EDT 2 mg neostigmine (PROSTIGMINE) injection PRN, Starting on Fri06/07/14 at 1107, Until Fri06/07/14 at 1134, Anesthesia Intra-op, Routine Given 06/07/2014 11:07 AM EDT 4 mg ondansetron (ZOFRAN) injection PRN, Starting on Fri06/07/14 at 1041, Until Fri06/07/14 at 1134, Nausea, Anesthesia Intra-op, Routine Given 06/07/2014 10:41 AM EDT 4 mg PHENYLephrine HCl in NS (PF) (NOE-SYNEPHRINE) 0.8 mg/10 mL (80 mcg/mL) injection Syrg PRN, Starting on Fri06/07/14 at 0804, Until Fri06/07/14 at 1134, Anesthesia Intra-op, Routine Given 06/07/2014 8:38 AM EDT 160 mcg Given 06/07/2014 8:08 AM EDT 400 mcg Given 06/07/2014 8:04 AM EDT 240 mcg propofol (DIPRIVAN) 10 mg/mL bolus injection (Anesthesia) PRN, Starting on Fri06/07/14 at 0746, Until Fri06/07/14 at 1134, Anesthesia Intra-op Given 06/07/2014 7:46 AM EDT 200 mg rocuronium (ZEMURON) injection PRN, Starting on Fri06/07/14 at 0747, Until Fri06/07/14 at 1134, Anesthesia Intra-op, Routine Given 06/07/2014 9:04 AM EDT 50 mg Given 06/07/2014 7:47 AM EDT 50 mg documented in this encounter Care Teams It Director Relationship Specialty Start Date End Date Ivanna Hughes APRN PCP - General 05/19/11 09/10/15 documented as of this encounter
--- OUTSIDE RECORDS SUMMARY | 2024-07-19 16:50 | XMS_ITS | Encounter Summary ---
Author Organization [facility] Address [facility] [place] [address] Care Team Providers Care Scheduler Name Role Phone Ivanna Hughes APRN Primary Care Provider +1- [phone] Reason for Visit * Auth/Cert - Closed Specialty Diagnoses / Procedures Referred By Ugo t Referred To Contact Diagnoses LEFT INGUINAL HERNIA Procedures REPAIR INGUINAL HERNIA, 5 YR OR OLDER, REDUCIBLE Referral ID Status Reason Start Date Expiration Date Visits Re quested Visits Authorized [id number] Closed 1 1 Encounter Details Date Type Department Care Team (Latest Contact Info) Description 07/07/2015 10:26 AM EDT - 07/07/2015 7:26 PM EDT Hospital Encounter [place] [address] Flash Livingston MD [facility] [place] [address] Discharge Disposition: Home Social History Tobacco Use [...] Sign Reading Time Taken Comments Blood Pressure 166/99 07/07/2015 6:03 PM EDT Pulse 63 07/07/2015 6:03 PM EDT Temperature 36.3 ??C (97.3 ??F) 07/07/2015 5:06 PM ED T Respiratory Rate 16 07/07/2015 6:03 PM EDT Oxygen Saturation 99% 07/07/2015 6:03 PM EDT Inhaled Oxygen Concentration - - [...] 101.3 F. The number for questions is [phone] before 5 PM weekdays and [phone] after 5 PM and weekends. Pain Medication: [...] will be mailed to you. Please call [phone] (clinic number for appointments) to confirm date [...] Dasilva MD - 07/07/2015 5:05 PM EDT [facility] Operative Note Patient Name: Shree Ortez Jr. : [id number] MR#: [id number] Case Date: 07/07/2015 Surgeon: Surgeon(s) and Role: [...] Note Patient Name: Shree Ortez Jr. : [id number] MR#: [id number] Case Date: 07/07/2015 Surgeon: Surgeon(s) and Role: [...] rendered or confirmed the diagnosis(es). Accession Number: [id number] ?Location: [facility]; [facility]; A . ?Surgical Pathology DIAGNOSIS Left inguinal [...] marie-yellow. (R6) ??p 07/11/2015 9:12 AM EDT [facility] SOFT TISSUE MASS / Unknown 07/07/2015 4:04 PM EDT 07/07/2015 4:04 PM EDT Flash Livingston MD PATHOLOGY/CYTOLOGY O [facility] [place] [address] * Specimen to Pathology (surgical or derm) (07/07/2015 4:04 PM EDT) AP Specimen 07/07/2015 4:04 PM EDT 07/07/2015 4:04 PM EDT Narrative HENRY UPTON - 07/07/2015 4:04 PM EDT Specimen requisition ordered. ??Separate Pathology report to follow Flash Livingston MD PATHOLOGY/CYTOLOGY O TRISTIAN Performing Organization Address City/[facility]/ZIP Co de Phone Number HENRY UPTON * [...] Given 07/07/2015 5:56 PM EDT 1,000 mg fentaNYL (PF) 50 mcg/mL 2mL syringe [...] 1:56 PM EDT 1,000 mLs 100 mL/hr ondansetron (ZOFRAN) injection 4 mg 4 mg, [...] 250 mcg over one hour., PACU Recovery 180 (Given - Provid er: Pat Dia RN)[id number] [...] Recovery documented in this encounter Care Teams Scheduler Relationship Specialty Start Date End Date Ivanna Hughes APRN PCP - General 05/19/11 09/10/15 documented as of this encounter
--- OUTSIDE RECORDS SUMMARY | 2024-07-19 16:50 | XMS_ITS | Encounter Summary ---
Author Organization [facility] [place] [address] Care Team Providers Care Land Law Examiner Name Role Phone Ivanna Hughes APRN Primary Care Provider +1- [phone] Encounter Details Date Type Department Care Team (Late st Contact Info) Description 12/21/2014 [place] [id number] Jarocho Jenkins MD [address] [place] [address] Social History Tobacco Use Types Packs/Day Years [...] encounter Miscellaneous Notes * Telephone Encounter - Rebecca Kathleen - 05/02/2015 3:39 PM EDT . documented in this encounter Plan of Treatment Scheduled Procedures Name Priority Associated Diagnoses Date/Ti me EGD, UPPER GI ENDOSCOPY (WRV U 2.09) Esophageal dysphagia Encounter for colorectal cancer screening COLONOSCOPY, DIAGNOSTIC (WRV U 3.26) Esophageal dysphagia Encounter for colorectal cancer screening documented as of this encounter Visit Diagnoses Not on filedocumented in this encounter Care Teams Land Law Examiner Relationship Specialty Start Date End Date Ivanna Hughes APRN PCP - General 05/19/11 09/10/15 documented as of this encounter
--- OUTSIDE RECORDS SUMMARY | 2024-07-19 16:50 | XMS_ITS | Encounter Summary ---
[place] [address] Care Team Providers Care Electric Organ Assembler And Checker Name Role Phone Ivanna Hughes APRN Primary Care Provider [phone]- [phone] Encounter Details Date Type Department Care Team (Late st Contact Info) Description 06/03/2014 9:44 AM EDT - 06/03/2014 11:59 PM EDT Hospital Encounter [place] [phone] Social History Tobacco Use Types Packs/Day Years [...] Sig Dispensed Refills Start Date End Date bisacodyl (DULCOLAX) [address] 1 suppository rectally daily as needed. 06/10/2014 06/16/2014 acetaminophen (TYLENOL) 500 mg Tablet Take 2 tablets by mouth every 8 hours as needed for Pain. 06/09/2014 01/17/2017 docusate sodium (COLACE) 100 mg Capsule Take 1 capsule by mouth 2 times daily. Recommend taking stool softener as long as you are taking narcotic pain medication. 06/09/2014 06/16/2014 ondansetron (ZOFRAN) 4 mg Tablet Take 1 tablet by mouth every 8 hours as needed. 15 tablet 0 06/09/2014 09/26/2014 oxyCODONE (ROXICODONE) 5 mg Tablet Take 1-3 tablets by mouth every 4 hours as needed for Pain. 45 tablet 0 06/09/2014 09/26/2014 acetaminophen (TYLENOL) 500 mg tablet Take 1,000 mg by mouth every 6 hours as needed. 06/10/2014 terazosin (HYTRIN) 1 mg capsule Take 1 [...] Procedure Name Priority Date/Time Associated Diagnosis Comments NM BONE SCAN WHOLE BODY Routine 06/03/2014 10:17 AM EDT documented in this encounter Results * NM whole body bone scan (06/03/2014 10:17 AM EDT) Anatomical Region Laterality Modality Other 06/03/2014 10:1 7 AM EDT Narrative 06/03/2014 10:54 AM EDT Examination WHOLE BODY BONE SCAN Clinical History renal mass, slightly elevated alk phos, r/o bone mets Comparison Chest CT 06/03/2014; CT abdomen/pelvis 04/15/2014. Technique Approximately 3 hours following the intravenous administration of 26.3 millicuries of technetium-99m MDP, planar images of the entire skeleton were obtained in the anterior and posterior projections, in addition to spot planar images of the head, forearms, and thoracolumbar spine region. Findings Increased activity seen in the left hip, correlating to osteoarthropathy on CT. ?? Additional degenerative uptake seen in the shoulders, hands/wrists, feet, and bilateral 1st rib costochondral junction. Mildly increased activity in the cervical spine is also favored to be degenerative in nature. No abnormal radiopharmaceutical uptake is identified in the visualized axial or appendicular skeleton suggestive of osseous metastases. ??Excreted activity is seen in the kidneys and urinary bladder. Impression ? 1. No suspicious osseous metastases. ? 2. Degenerative uptake in the axial and visualized appendicular skeleton as above. Film and interpretation reviewed by the attending Procedure Note Sandi Vincent MD - 06/03/2014 Examination WHOLE BODY BONE SCAN Clinical History renal mass, slightly elevated alk phos, r/o bone mets Comparison Chest CT 06/03/2014; CT abdomen/pelvis 04/15/2014. Technique Approximately 3 hours following the intravenous administration of 26.3 millicuries of technetium-99m MDP, planar images of the entire skeletonwere obtained in the anterior and posterior projections, in addition to spotplanar images of the head, forearms, and thoracolumbar spine region. Findings Increased activity seen in the left hip, correlating to osteoarthropathyon CT. Additional degenerative uptake seen in the shoulders, hands/wrists, feet,and bilateral 1st rib costochondral junction. Mildly increased activity in the cervical spine is also favored to be degenerative in nature. No abnormal radiopharmaceutical uptake is identified in the visualized axial or appendicular skeleton suggestive of osseous metastases. Excreted activityis seen in the kidneys and urinary bladder. Impression 1. No suspicious osseous metastases. 2. Degenerative uptake in the axial and visualized appendicularskeleton as above. Film and interpretation reviewed by the attending Jarocho Jenkins MD [facility] ORDERABLES documented in this encounter Visit Diagnoses Not on filedocumented in this encounter Care Teams Electric Organ Assembler And Checker Relationship Specialty Start Date End Date Ivanna Hughes APRN PCP - General 05/19/11 09/10/15 documented as of this encounter
--- OUTSIDE RECORDS SUMMARY | 2024-07-19 16:50 | XMS_ITS | Encounter Summary ---
Author Organization [facility] [place] [address] Care Team Providers Care Prospecting Observer Name Role Phone Ivanna Hughes APRN Primary Care Provider [phone]- [phone] Encounter Details Date Type Department Care Team (Late st Contact Info) Description 04/28/2014 4:00 PM EDT Office Visit Urology at [facility] [place] [phone] Jarocho Jenkins MD [address] [place] [address] Kidney tumor Discharge Disposition: Home Social History Tobacco Use [...] Sign Reading Time Taken Comments Blood Pressure 156/90 04/28/2014 3:31 PM EDT Pulse 77 04/28/2014 3:31 PM EDT Temperature - - Respiratory Rate - - Oxygen Saturation - - Inhaled Oxygen Concentration - - Weight 97.1 kg (214 lb) 04/28/2014 3:31 PM EDT Height 170.2 cm (5' 7) 04/28/2014 3:31 PM EDT Body Mass Index 33.52 04/28/2014 3:31 PM EDT documented in this encounter Progress Notes * Jarocho Jenkins MD - 04/28/2014 3:36 PM EDT 63[address] Rivas for an incidentally discovered left renal mass. He was recently seen for evaluation of a left inguinal hernia. CT imaging revealed: Incidental finding of heterogeneously hypo-enhancing mass measuring 4.9 x 3.9 x 4.3 centimeters in the inferior pole of left kidney containing a discrete low attenuation focus. Differential considerations include RCC, oncocytoma, AML. Give the intralesional low attenuation focus, recommend further characterization with renal mass protocol MRI to evaluate for presence of gross fat. He had a f/u MRI that revealed: There is a complex, mixed solid and cystic, but predominantly solid mass involving the lower third of the left kidney. This mass measures approximately 4.6 x 3.9 x 4.0 cm (series 16, image 23 and series 13, image 43). No hydronephrosis. Impression Complex mixed solid and cystic but predominately solid left renal mass with imaging characteristics most consistent with a primary renal neoplasm. No lymphadenopathy or other masses within the visualized portions of the abdomen. Film and interpretation reviewed by the attending No weight loss or anorexia, back or bone pain. He does have chronic left hip pain from osteoarthritis. He has a normal CBC and normal renal function. No FH of renal tumors. No flank or abdominal pain. On hytrin 1mg for hypertension. Denies change in urinary habits. No gross hematuria. PMH: hypertension PSH: appendectomy Current Outpatient Prescriptions on File Prior to Visit Medication Sig Dispense Refill ??? acetaminophen (TYLENOL) 500 mg tablet Take 1,000 mg by mouth every 6 hours as needed. ??? terazosin (HYTRIN) 1 mg capsule Take 1 mg by mouth nightly. No Known Allergies History Social History ??? Marital Status: Single Spouse Name: N/A Number of Children: N/A ??? Years of Education: N/A Occupational History ??? Not on file. Social History Main Topics ??? Smoking status: Former Smoker Quit date: 05/28/1970 ??? Smokeless tobacco: Never Used ??? Alcohol Use: No ??? Drug Use: No ??? Sexually Active: Not on file Other Topics Concern ??? Not on file Social History Narrative ??? No narrative on file FH: neg for kidney cancer Review of Systems Constitutional: Negative for fever, fatigue and unexpected weight change. HENT: Negative for neck pain. Eyes: Negative for visual disturbance. Respiratory: Negative for shortness of breath. Cardiovascular: Negative for chest pain. Gastrointestinal: Negative for abdominal pain. Genitourinary: Negative for urgency, frequency, hematuria, flank pain and difficulty urinating. Musculoskeletal: Negative for back pain. Skin: Negative for color change. Neurological: Negative for dizziness. Psychiatric/Behavioral: Negative for confusion. Physical Exam Constitutional: He is oriented to person, place, and time. He appears well- developed and well-nourished. HENT: Head: Normocephalic. Eyes: Pupils are equal, round, and reactive to light. Neck: Normal range of motion. Cardiovascular: Normal rate. Pulmonary/Chest: Effort normal. Abdominal: Soft. There is no tenderness. Genitourinary: Penis normal. Musculoskeletal: Normal range of motion. Neurological: He is alert and oriented to person, place, and time. Skin: Skin is warm and dry. Psychiatric: He has a normal mood and affect. No abdominal or flank masses RLQ well healed incision A: 5cm enhancing left renal mass suspicious for RCC Left inguinal hernia for planned repair P: We reviewed his history in detail. We reviewed his imaging exams. He has a large, endophytic tumor that enhances and is renal carcinoma until proven otherwise. We discussed the role of percutaneous biopsy which I do not believe would be useful based on tumor size and concern for sampling error. He is otherwise healthy and should have extirpative surgery. We discussed open vs laparoscopic nephrectomy. Advantages of the latter in hastened convalescence and decreased pain were reviewed. We reviewed risks of surgery including bleeding, infection, damage to adjacent structures, recurrence, benign pathology, DVT/PE, other medical complications like MN, renal dysfunction, open conversion etc. He has a symptomatic LIH and we discussed that he might have a combination procedure to consolidatehis convalescence. He is quite interested in this. We will obtain a CXR and CMP for staging. We will schedule for laparoscopic nephrectomy in the nearfuture and coordinate with Dr. Rivas's office. His questions were answered in detail. documented in this encounter Plan of Treatment Scheduled Procedures Name Priority Associated Diagnoses Date/Ti me EGD, UPPER GI ENDOSCOPY (WRV U 2.09) Esophageal dysphagia Encounter for colorectal cancer screening COLONOSCOPY, DIAGNOSTIC (WRV U 3.26) Esophageal dysphagia Encounter for colorectal cancer screening documented as of this encounter Procedures Procedure Name Priority Date/Time Associated Diagnosis Comments COMPREHENSIVE METABOLIC PANEL STAT 04/28/2014 4:18 PM EDT Kidney tumor documented in this encounter Results * (ABNORMAL) Comprehensive metabolic panel (non-fasting) (04/28/2014 4:18 PM EDT) Glucose 121 60 - 199 mg/dL CERNER MILLENNIUM Comment:Diabetes: >=200 mg/d L plus symptoms Blood Urea Nitrogen 17 10 - 20 mg/dL CERNER MILLENNIUM Creatinine 1.11 0.80 - 1.50 mg/dL CERNER MILLENNIUM Comment: Please note that the pediatric reference intervals supplied above were not validated at [facility]. Results from pediatric patients should be interpreted in conjunction to the patient's age, height and muscle mass. Sodium 142 135 - 145 mmol/L CERNER MILLENNIUM Potassium 4.0 3.5 - 5.0 mmol/L CERNER MILLENNIUM Comment: Please note: ??Patients with WBC >100,000 may have falsely elevated Potassium levels. ??For accurate Potassium quantification in these patients send serum separator tube (gold top) for subsequent determinations. ??Contact the Clinical Chemistry Laboratory if there are any questions. Chloride 107 98 - 107 mmol/L CERNER MILLENNIUM Carbon Dioxide 24 22 - 31 mmol/L CERNER MILLENNIUM Anion Gap 11 5 - 15 mmol/L CERNER MILLENNIUM Calcium 9.0 8.5 - 10.5 mg/dL CERNER MILLENNIUM Protein, Total 6.9 6.4 - 8.3 gm/dL CERNER MILLENNIUM Albumin 4.2 3.2 - 5.2 gm/dL CERNER MILLENNIUM Aspartate Aminotransferase 35 0 - 39 unit/L CERNER MILLENNIUM Alanine Aminotransferase 39 0 - 55 unit/L CERNER MILLENNIUM Alkaline Phosphatase 127(H) 40 - 120 unit/L CERNER MILLENNIUM Bilirubin, Total 0.5 0.2 - 1.3 mg/dL CERNER MILLENNIUM Bilirubin, Direct 0.1 0.0 - 0.3 mg/dL CERNER MILLENNIUM Est Glomerular Filtration Rate >60 >=60 CERNER MILLENNIUM Comment: This estimated GFR (eGFR) value was [...] the following links into your internet browser. [email or web address] Blood specimen (specimen) 04/28/2014 4:18 PM EDT 04/28/2014 4:26 PM EDT Narrative Resulting Agency Comment Spec In Lab Jarocho Jenkins MD CHEMISTRY ORDERABLES [facility] * XR chest routine PA & lateral (04/28/2014 4:11 PM EDT) Anatomical Region Laterality Modality Chest N/A Radiographic Laura ging 04/28/2014 4:11 PM EDT Narrative 04/28/2014 5:14 PM EDT Examination CHEST ROUTINE PA+LAT Clinical History preop nephrectomy Comparison None Technique PA and lateral chest. ?? Findings Subtle subcentimeter rounded density in projection onto the right lower lung. This may just represent a nipple shadow, however, no prior chest x-ray is available for comparison and a pulmonary nodule cannot be excluded. Otherwise lungs are clear. No pleural effusion. Normal size of the heart and width of the mediastinum. Mild irregularity of left-sided ribs may represent remote, healed fractures. Impression Indeterminate subcentimeter subtle density in projection onto the right lower lung. ??Recommend repeat chest x-ray in PA projection with placement of nipple markers. Otherwise may consider chest CT to rule out pulmonary nodule/pulmonary metastasis. Procedure Note Tiffany Guadarrama MD - 04/28/2014 Examination CHEST ROUTINE PA+LAT Clinical History preop nephrectomy Comparison None Technique PA and lateral chest. Findings Subtle subcentimeter rounded density in projection onto the right lowerlung. This may just represent a nipple shadow, however, no prior chest x-ray is available for comparison and a pulmonary nodule cannot be excluded. Otherwise lungs are clear. No pleural effusion. Normal size of the heartand width of the mediastinum. Mild irregularity of left-sided ribs mayrepresent remote, healed fractures. Impression Indeterminate subcentimeter subtle density in projection onto the rightlower lung. Recommend repeat chest x-ray in PA projection with placement ofnipple markers. Otherwise may consider chest CT to rule out pulmonarynodule/pulmonary metastasis. Jarocho Jenkins MD IMG DX ORDERABLES documented in this encounter Visit Diagnoses Diagnosis Kidney tumor Neoplasm of unspecified nature of other genitourinary organs Kidney tumor Neoplasm of unspecified nature of other genitourinary organs documented in this encounter Care Teams Prospecting Observer Relationship Specialty Start Date End Date Ivanna Hughes APRN PCP - General 05/19/11 09/10/15 documented as of this encounter
--- OUTSIDE RECORDS SUMMARY | 2024-07-19 16:50 | XMS_ITS | Encounter Summary ---
Author Organization [facility] Address [facility] [address] [place] [address] Care Team Providers Care Floor Person Name Role Phone Ivanna Hughes APRN Primary Care Provider +1- [phone] Encounter Details Date Type Department Care Team (Late st Contact Info) Description 04/28/2014 4:03 PM EDT - 04/28/2014 11:59 PM EDT Hospital Encounter XRay at [address] [place] [address] Kidney tumor Social History Tobacco Use Types Packs/Day Years [...] Date End Date acetaminophen (TYLENOL) 500 mg tablet Take 1,000 [...] Comments XR CHEST PA AND LATERAL Routine 04/28/2014 4:11 PM EDT Kidney tumor documented in this encounter Results * XR chest routine PA & lateral [...] organs documented in this encounter Care Teams Floor Person Relationship Specialty Start Date End Date Ivanna Hughes APRN PCP - General 05/19/11 09/10/15 documented as of this encounter
--- OUTSIDE RECORDS SUMMARY | 2024-07-19 16:50 | XMS_ITS | Encounter Summary ---
Author Organization [facility] [place] [address] Care Team Providers Care Farm Equipment Engine Mechanic Name Role Phone Ivanna Hughes APRN Primary Care Provider +1- [phone] Encounter Details Date Type Department Care Team (Late st Contact Info) Description 05/02/2014 [place] [phone] Jarocho Jenkins MD [address] [place] [address] Social History Tobacco Use Types Packs/Day Years [...] * Telephone Encounter - [employer] Mix - 05/02/2014 11:[address] SAFETY QUESTIONS ANSWERED. documented in this encounter Plan of Treatment Scheduled Procedures Name Priority Associated Diagnoses Date/Ti me EGD, UPPER GI ENDOSCOPY (WRV U 2.09) Esophageal dysphagia Encounter for colorectal cancer screening COLONOSCOPY, DIAGNOSTIC (WRV U 3.26) Esophageal dysphagia Encounter for colorectal cancer screening documented as of this encounter Visit Diagnoses Not on filedocumented in this encounter Care Teams Farm Equipment Engine Mechanic Relationship Specialty Start Date End Date Ivanna Hughes APRN PCP - General 05/19/11 09/10/15 documented as of this encounter
--- OUTSIDE RECORDS SUMMARY | 2024-07-19 16:50 | XMS_ITS | Encounter Summary ---
Author Organization [facility] [place] [address] Care Team Providers Care Bumboater Name Role Phone Ivanna Hughes APRN Primary Care Provider +1- [phone] Encounter Details Date Type Department Care Team (Late st Contact Info) Description 04/29/2014 Orders Only Urology at [facility] [place] [phone] Jarocho Jenkins MD [address] [place] [address] Renal mass (Primary Dx) Social History Tobacco Use Types Packs/Day Years [...] as of this encounter Progress Notes * Jarocho Jenkins MD - 04/29/2014 8:56 AM EDT Alk phos mildly elevated 127. CXR shows indeterminate pulmonary nodule, CT correlation suggested. Discussed w/ pt. Will schedule bone scan and chest CT. Will also work to schedule lap nephrectomy +IHR, director veterinary ([employer]) out today but back next week. documented in this encounter Plan of Treatment Scheduled Procedures Name Priority Associated Diagnoses Date/Ti me EGD, UPPER GI ENDOSCOPY (WRV U 2.09) Esophageal dysphagia Encounter for colorectal cancer screening COLONOSCOPY, DIAGNOSTIC (WRV U 3.26) Esophageal dysphagia Encounter for colorectal cancer screening documented as of this encounter Results * CT chest WO contrast (06/03/2014 6:51 AM EDT) Anatomical Region Laterality Modality Chest Computed Tomogra phy 06/03/2014 6:51 AM EDT Narrative 06/03/2014 8:[address] chest without contrast Clinical History r/o lung mets, +renal mass, +indeterminate nodule on CXR Technique 3.75 mm thick axial contiguous sections were obtained through the chest via helical acquisition without intravenous contrast administration. Thin-section reconstructions as well as coronal and sagittal reformatted images were generated. ?? Comparison No prior chest CT. 04/15/[address] Findings Pulmonary parenchyma: ??Approximately 2 mm subpleural calcified nodule on series 4 image 87 posteromedially in the left lung apex, consistent with a granuloma. Approximately 2 mm noncalcified nodules near the plane of the minor fissure, see series 4 image 244, consistent with an intrapulmonary lymph node or noncalcified granuloma. No suspicious pulmonary nodules. No other parenchymal findings. Airways: No significant findings. Pleura: No pleural effusion. Lymph nodes:Bilateral hilar lymph node calcifications. ??No enlarged thoracic lymph nodes identified. Heart, pericardium, and great vessels:At the level of the aortic arch in the right paratracheal region, there is an approximately 3.2 x 2.2 cm homogeneously fluid attenuation (1 Hounsfield units) structure with an imperceptible wall, measured on series 2 image 20. ??On series 2 image 18, this fluid tapers and insinuates itself between the aortic arch and left brachiocephalic vein, extending caudally, and is continuous with superior aortic recess, see coronal reconstructions series 601 image 60. 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 Other mediastinal structures: No significant findings. Lower neck:No significant findings. Upper abdomen:No significant interval findings, within limits of non contrast technique. Skeletal structures:No suspicious osseous findings. Impression No pulmonary metastases or lymphadenopathy identified. Procedure Note Beverly De Guzman MD - 06/03/[address] chest without contrast Clinical History r/o lung mets, +renal mass, +indeterminate nodule on CXR Technique 3.75 mm thick axial contiguous sections were obtained through the chestvia helical acquisition without intravenous contrast administration.Thin-section reconstructions as well as coronal and sagittal reformatted images were generated. Comparison No prior chest CT. 04/15/[address] Findings Pulmonary parenchyma: Approximately 2 mm subpleural calcified nodule onseries 4 image 87 posteromedially in the left lung apex, consistent with agranuloma. Approximately 2 mm noncalcified nodules near the plane of the minorfissure, see series 4 image 244, consistent with an intrapulmonary lymph node or noncalcified granuloma. No suspicious pulmonary nodules. No otherparenchymal findings. Airways: No significant findings. Pleura: No pleural effusion. Lymph nodes:Bilateral hilar lymph node calcifications. No enlargedthoracic lymph nodes identified. Heart, pericardium, and great vessels:At the level of the aortic arch inthe right paratracheal region, there is an approximately 3.2 x 2.2 cmhomogeneously fluid attenuation (1 Hounsfield units) structure with an imperceptiblewall, measured on series 2 image 20. On series 2 image 18, this fluid tapersand insinuates itself between the aortic arch and left brachiocephalic vein, extending caudally, and is continuous with superior aortic recess, seecoronal reconstructions series 601 image 60. 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 Other mediastinal structures: No significant findings. Lower neck:No significant findings. Upper abdomen:No significant interval findings, within limits of noncontrast technique. Skeletal structures:No suspicious osseous findings. Impression No pulmonary metastases or lymphadenopathy identified. Jarocho Jenkins MD IMG CT ORDERABLES documented in this encounter Visit Diagnoses Diagnosis Renal mass- Primary Unspecified disorder of kidney and ureter Renal mass Unspecified disorder of kidney and ureter documented in this encounter Care Teams Bumboater Relationship Specialty Start Date End Date Ivanna Hughes APRN PCP - General 05/19/11 09/10/15 documented as of this encounter
--- OUTSIDE RECORDS SUMMARY | 2024-07-19 16:50 | XMS_ITS | Encounter Summary ---
Author Organization [facility] [place] [address] Care Team Providers Care Associate Music Professor Name Role Phone Ivanna Hughes APRN Primary Care Provider +1- [phone] Encounter Details Date Type Department Care Team (Late st Contact Info) Description 06/16/2014 Orders Only Urology at [facility] [place] [address] Jarocho Jenkins MD [address] [place] [address] Social History Tobacco Use Types Packs/Day Years [...] on filedocumented in this encounter Care Teams Associate Music Professor Relationship Specialty Start Date End Date Ivanna Hughes APRN PCP - General 05/19/11 09/10/15 documented as of this encounter
--- OUTSIDE RECORDS SUMMARY | 2024-07-19 16:50 | XMS_ITS | Encounter Summary ---
Author Organization [facility] Address [facility] [address] [place] [address] Care Team Providers Care Manager Registration Name Role Phone Ivanna Hughes APRN Primary Care Provider [phone]- [phone] Encounter Details Date Type Department Care Team (Late st Contact Info) Description 12/16/2014 8:00 PM EDT Office [place] [id number] Jimi Ward MD [facility] [place] [address] Difficulty in swallowing Social History Tobacco Use Types Packs/Day Years [...] as of this encounter Progress Notes * Jimi Ward MD - 12/28/2014 12:15 PM EDT HIGH-RESOLUTION ESOPHAGEAL MANOMETRY Shree Ortez Jr. Age: Male, 64 y.o., 1950 PCP: Ivanna Hughes FIRE PREVENTION CHIEF: YELITZA RAMOS STUDY DATE: 12/16/14 PROVIDER: Jimi [place] ([id number]) INDICATION Dysphagia. METHODS Stationary esophageal manometry was performed with the ManoScan 360 ([facility])in a supervised setting after verbal consent and after topical anesthesia to the nares. This systemuses 36 individual circumferential solid state sensors spaced 1 cm apart. The outer diameter of theprobe is 4.2 mm. Length, resting pressure, pressure inversion point (PIP),and relaxation of the lower esophageal sphincter (LES) was measured. The high pressure zone of the upper esophageal sphincter(UES) was measured. Water swallows were provided after a 5 minute accommodation period to assess LES function and function of the esophageal body. FINDINGS LES (lower esophageal sphincter) Distal border of LES identified at 46.5 cm. Proximal border of LES identified at 43 cm. Basal pressure respiratory mean pressure 24.2 mmHg. Residual pressure 1.7 mmHg. BODY OF ESOPHAGUS Water Swallows: 13 Failed: 23%. Panesophageal pressurization 8% Premature: 62% Rapid: 8% Transmitted (peristaltic): 0%. With large breaks: 0 %. With small breaks: 15%. DCI: 944 mmHg-cm-s (normal is 500 to 5000). Contractile front velocity: 4.9 cm/s. Intrabolus pressure (average maximum): 10.3 mmHg. Distal latency: 3.8. UES (upper esophageal sphincter) Identified at 23.8 cm and extended to 20.3 cm. UES resting pressure 31 mmHg; residual pressure 0 mmHg. IMPRESSION 1. Normal LES resting pressure. 2. Normal LES relaxation. 3. Normal UES resting pressure. 4. Normal UES relaxation. 5. Diffuse esophageal spasm given that 62% of swallows were premature and distal latency was below normal limits. This assumes, of course, that mechanical obstruction has been ruled out. Jimi Ward, PhD, MD belt builder Section of Gastroenterology and Hepatology Formerly [facility] [place] [address] [address] V: [phone] F: [phone] ALON/elodia CC/EC: FIRE PREVENTION CHIEF - fax copy 12/27/14 documented in this encounter Plan of Treatment Scheduled Procedures Name Priority Associated Diagnoses Date/Ti me EGD, UPPER GI ENDOSCOPY (WRV U 2.09) Esophageal dysphagia Encounter for colorectal cancer screening COLONOSCOPY, DIAGNOSTIC (WRV U 3.26) Esophageal dysphagia Encounter for colorectal cancer screening documented as of this encounter Visit Diagnoses Diagnosis Difficulty in swallowing Dysphagia, unspecified documented in this encounter Care Teams Manager Registration Relationship Specialty Start Date End Date Ivanna Hughes APRN PCP - General 05/19/11 09/10/15 documented as of this encounter
--- OUTSIDE RECORDS SUMMARY | 2024-07-19 16:50 | XMS_ITS | Encounter Summary ---
Author Organization [facility] [place] [address] Care Team Providers Care Cafeteria Supervisor Name Role Phone Ivanna Hughes APRN Primary Care Provider +1- [phone] Encounter Details Date Type Department Care Team (Late st Contact Info) Description 06/20/2014 Orders Only Urology at [facility] [place] [address] Jarocho Jenkins MD [address] [place] [address] Renal mass, left (Primary Dx) Social History Tobacco Use Types [...] as of this encounter Progress Notes * Sammie Victoria LPN - 06/20/2014 10:17 AM EDT I faxed over an order for BMP to be done within the week 06/20-06/24 to [facility] per . documented in this encounter Plan of Treatment Scheduled Procedures Name Priority Associated Diagnoses Date/Ti vt EGD, UPPER GI ENDOSCOPY (WRV U 2.09) Esophageal dysphagia Encounter for colorectal cancer screening COLONOSCOPY, DIAGNOSTIC (WRV U 3.26) Esophageal dysphagia Encounter for colorectal cancer screening documented as of this encounter Visit Diagnoses Diagnosis Renal mass, left- Primary Unspecified disorder of kidney and ureter documented in this encounter Care Teams Cafeteria Supervisor Relationship Specialty Start Date End Date Ivanna Hughes APRN PCP - General 05/19/11 09/10/15 documented as of this encounter
--- OUTSIDE RECORDS SUMMARY | 2024-07-19 16:50 | XMS_ITS | Encounter Summary ---
Author Organization [facility] Address [facility] [address] [place] [address] Care Team Providers Care Forest Fire Prevention Manager Name Role Phone Ivanna Hughes APRN Primary Care Provider +1- [phone] Encounter Details Date Type Department Care Team (Late st Contact Info) Description 06/13/2014 Telephone Urology at [facility] [place] [id number] Brenda Manning MD [facility] [place] [address] Social History Tobacco Use Types Packs/Day Years [...] encounter Miscellaneous Notes * Telephone Encounter - Brenda Manning - 06/13/2014 1:22 PM EDT Pt called to report that he has not had a BM since surgery. He has been taking stool softners but not stimulants. Weaning off his narcotics. No nausea or vomiting. Recommended Senokot and Miralax, fiber, and hydration. If not able to have a BM or having worrisome symptoms, he will call back or go to the ED. documented in this encounter Plan of Treatment Scheduled Procedures Name Priority Associated Diagnoses Date/Ti me EGD, UPPER GI ENDOSCOPY (WRV U 2.09) Esophageal dysphagia Encounter for colorectal cancer screening COLONOSCOPY, DIAGNOSTIC (WRV U 3.26) Esophageal dysphagia Encounter for colorectal cancer screening documented as of this encounter Visit Diagnoses Not on filedocumented in this encounter Care Teams Forest Fire Prevention Manager Relationship Specialty Start Date End Date Ivanna Hughes APRN PCP - General 05/19/11 09/10/15 documented as of this encounter
--- OUTSIDE RECORDS SUMMARY | 2024-07-19 16:50 | XMS_ITS | Encounter Summary ---
Author Organization [facility] [address] [place] [address] Care Team Providers Care Supervisor Tank Cleaning Name Role Phone Ivanna Hughes APRN Primary Care Provider +1- [phone] Encounter Details Date Type Department Care Team (Latest Contact Info) Description 04/22/2014 3:17 PM EDT - 04/22/2014 11:59 PM EDT Hospital Encounter MRI at [facility] [place] [address] CLINIC, DR LEONARD Rivas, Flash Phan MD Left renal mass Discharge Disposition: Home Social History Tobacco Use [...] Procedure Name Priority Date/Time Associated Diagnosis Comments MRI ABDOMEN WWO CONTRAST Routine 04/22/2014 5:55 PM EDT documented in this encounter Results * MRI abdomen with/WO contrast (04/22/2014 5:55 PM EDT) Anatomical Region Laterality Modality Abdomen Magnetic Resonan ce 04/22/2014 5:55 PM EDT Narrative 04/25/2014 9:49 AM EDT Examination MR ABDOMEN W/WO GADO Clinical History Left renal mass found on recent CT ?? ?Renal Cell Carcinoma Comparison CT abdomen/pelvis with contrast, 04/15/2014. ?? Technique Multiweighted, multiplanar magnetic resonance imaging of the abdomen was performed before and after the uneventful administration of 20 mL Magnevist intravenous gadolinium-based contrast according to the renal protocol. ?? Findings There is a complex, mixed solid and cystic, but predominantly solid mass involving the lower third of the left kidney. This mass measures approximately 4.6 x 3.9 x 4.0 cm (series 16, image 23 and series 13, image 43). No hydronephrosis. Limited visualized portions of the liver, pancreas, right kidney, adrenal glands, spleen, and gallbladder are normal. The visualized portions of the intra- and extrahepatic biliary ducts are normal in course and caliber. There are solitary bilateral renal arteries and veins. Subcentimeter periaortic/retroperitoneal lymph nodes are noted bilaterally. No lymphadenopathy is seen within the visualized portions of the abdomen. ?? Bone marrow signal throughout the visualized skeleton is normal. ?? Impression Complex mixed solid and cystic but predominately solid left renal mass with imaging characteristics most consistent with a primary renal neoplasm. No lymphadenopathy or other masses within the visualized portions of the abdomen. Film and interpretation reviewed by the attending Procedure Note Jorge Block MD - 04/25/2014 Examination MR ABDOMEN W/WO GADO Clinical History Left renal mass found on recent CT ?Renal Cell Carcinoma Comparison CT abdomen/pelvis with contrast, 04/15/2014. Technique Multiweighted, multiplanar magnetic resonance imaging of the abdomen was performed before and after the uneventful administration of 20 mLMagnevist intravenous gadolinium-based contrast according to the renal protocol. Findings There is a complex, mixed solid and cystic, but predominantly solid mass involving the lower third of the left kidney. This mass measuresapproximately 4.6 x 3.9 x 4.0 cm (series 16, image 23 and series 13, image 43). No hydronephrosis. Limited visualized portions of the liver, pancreas, right kidney, adrenal glands, spleen, and gallbladder are normal. The visualized portions of the intra- and extrahepatic biliary ducts are normal in course and caliber.There are solitary bilateral renal arteries and veins. Subcentimeter periaortic/retroperitoneal lymph nodes are noted bilaterally. No lymphadenopathy is seen within the visualized portions of the abdomen. Bone marrow signal throughout the visualized skeleton is normal. Impression Complex mixed solid and cystic but predominately solid left renal masswith imaging characteristics most consistent with a primary renal neoplasm. No lymphadenopathy or other masses within the visualized portions of theabdomen. Film and interpretation reviewed by the attending Flash Rivas MD IMG MRI ORDERABLES documented in this encounter Visit Diagnoses Diagnosis Left renal mass Unspecified disorder of kidney and ureter documented in this encounter Administered Medications Inactive Administered Medications - up to 3 most recent administrations Medication Order MAR Action Action Date Dose Rate Site gadopentetate dimeglumine (MAGNEVIST) injection 20 mL 20 mL, Intravenous, ONCE PRN, Per Protocol, Starting on Fri04/22/14 at 1810, 1 dose, Until Fri04/22/14 at 1743 Given 04/22/2014 5:43 PM EDT 20 mLs documented in this encounter Care Teams Supervisor Tank Cleaning Relationship Specialty Start Date End Date Ivanna Hughes APRN PCP - General 05/19/11 09/10/15 documented as of this encounter
--- OUTSIDE RECORDS SUMMARY | 2024-07-19 16:50 | XMS_ITS | Encounter Summary ---
Author Organization [facility] [address] Care Team Providers Care Sheriffs Officer Name Role Phone Ivanna Barkley APRN Primary Care Provider [phone]- [phone] Encounter Details Date Type Department Care Team (Late st Contact Info) Description 06/07/2014 7:30 AM EDT - 06/07/2014 11:58 AM EDT [place] [address] Susan Jenkins MD [address] [place] [address] @LAPAROSCOPY, RADICAL NEPHRECTOMY ([facility]U ) Social History Tobacco Use Types Packs/Day Years [...] Sign Reading Time Taken Comments Blood Pressure 140/83 06/10/2014 1:00 PM EDT Pulse 95 06/10/2014 1:00 PM EDT Temperature 36.8 ??C (98.2 ??F) 06/10/2014 1:00 PM ED T Respiratory Rate 19 06/10/2014 1:00 PM EDT Oxygen Saturation 98% 06/10/2014 1:00 PM EDT Inhaled Oxygen Concentration - - Weight 96.2 kg (212 lb) 06/07/2014 6:11 PM EDT Height 172.7 cm (5' 8) 06/07/2014 6:11 PM EDT Body Mass Index 32.23 06/07/2014 6:11 PM EDT documented in this encounter Discharge Instructions * Patient Instructions* Nafisa Barksdale PA - 06/08/2014 12:18 PM EDT UROLOGY DISCHARGE INSTRUCTIONS Call your doctor for: fevers greater than 100.5 severe nausea or vomiting increasing pain not controlled by pain medications increasing redness or drainage from incisions decreased urine output, inability to urinate, or if your catheter is no longer draining The number for questions is [phone] before 5 PM weekdays and [phone] after 5 PM and weekends. Activity level: No heavy lifting greater than 10 pounds (about equal to a full gallon jug) for the next 4 weeks or until cleared to do so at follow-up appointment. Otherwise activity as tolerated by comfort level. Diet: You may resume your regular diet as tolerated. Driving: No driving while still taking opioid pain medications (wait at least 6- 8 hours since last dose). No driving if you are still sore from surgery as it may limit your ability to react quickly if necessary. Shower/Bath: You may shower and get incision(s) wet. Pat dry immediately following. Do not scrub them vigorously for the next 2-3 weeks. Do not soak incision(s) (i.e. soaking in bath or swimming) until told you may do so by a doctor, as this may promote a wound infection. Wound Care: You may cover wounds with sterile gauze as needed to prevent incision rubbing on clothes or for any seepage. Follow up Appointments: Follow-up appointment will be scheduled with Dr. Jenkins in 7-10 days. Appointment will be mailed to you. Please call [phone] (clinic number for appointments) to confirm date and time of your appointment if you do not receive it. documented in this encounter Medications at Time [...] for Pain. 45 tablet 0 06/09/2014 09/26/2014 terazosin (HYTRIN) 1 mg capsule Take 1 mg by mouth nightly. 01/14/2019 documented as of this encounter Progress Notes * Janet Marin RN - 06/10/2014 1:16 PM EDT Patient Name: Shree Ortez Jr. Patient Age: 64 y.o. Birthdate: 1950 Admit date: 06/07/2014 Attending Physician: Susan Jenkins MD 1330: Patient states, no questions about discharge summary, HLIV removed by DIRECTOR GRAPHICS, report faxed to [facility], patient discharged to sister's house passing flatus, no BM despite suppository. BRIDGETT Barksdale aware, patient discharged home via personal car. * Nicki Lao RN - 06/10/2014 10:58 AM EDT Met with shree to review discharge options and PT recommendation for home PT. He will use his sisters FWW so does not need one ordered.He is feeling much better and ois awaiting results from a suppository administered today.[facility] will be the agency as his sister lives in [facility] . He will have a friend transport him by private car to His sisters. The address is [address], [address] [place], [place] [phone]. RN to review instructions, medications activity and f/u appointment prior to discharge. Referral to be activated by Radha RAMIREZ.AGATA LAO RN 06/10/2014 * Josefa Dexter, PT - 06/10/2014 9:58 AM EDT Physical Therapy Treatment Note Visit #: 2 Patient Dx: Pt. is a 64 y.o. male admitted on 06/07/2014 by Urology for L laparoscopic radical nephrectomy on 05/07/14. The renal mass was found during work up for L Inguinal Hernia. The Hernia will berepaired in the future. Pt initially was likely to go home (to his sister's) 05/09 but was not doingwell enough. He might go to his sister's today, 06/10. Pt is on . Precautions/Special considerations/rehab-related orders: Full code. At risk to fall. High risk for skin breakdown. Ambulate with assist. Abdominal surgery. L inguinal hernia near current surgical incisions. Interval History: Doing much better today. Possible discharge today. S: I can use my toes to put the slippers on O: ?? MENTAL STATUS/BEHAVIOR: Alert and cooperative FUNCTIONAL MOBILITY: EXERCISES: active sitting for UEs, LEs (including ankle pumps), and leaning forward Pt demonstrated that he could don/doff his slippers using his feet SIT><STAND: with FWW and standby guard GAIT: ~ 200 Ft with FWW and standby guard SIT><R SIDE><SUPINE with head of bed flat, without rail, with just cues. Did this 2x ?? CARDIOPULMONARY: ?? SpO2: 96 - 95% on RA ?? HR: 83 - 86 Pain: L abdominal 12/30 - 12/30 Education: Pt/family education ongoing re exercises to do at home, pursed lip breathing, getting in/out of bed, safety. Pt's slippers might get too loose after he wears them more, and he might need to wear socks with them (which would be more work to don and doff) Staff Communication: Spoke with RN, Urology team, OT. A: Pt s/p L laparoscopic radical nephrectomy on 05/07/14 is doing much better today. Moving better. No c/o nausea. DISCHARGE RECOMMENDATIONS: From PT perspective it is OK for pt to be discharged to his sister's home if he does well with OT and when he is medically ready for discharge. He needs Home PT there. There is a rollator walker there that he can use. Physical Therapy Goals: To be achieved by discharge if pt will be staying with his sister and needsto be physically independent.. MET 1. Pt. to demonstrate knowledge of precautions during functional activities. 2. Pt. to demonstrate understanding of appropriate exercises, if needed. Pt to work on ankle pumps. 3. SUPINE><R SIDE><SIT independently, with head of bed flat without rail. 4. Pt. to perform transfers independently utilizing a rolling walker. 5. Pt. to ambulate 200 feet; with a rolling walker, and contact guard, while wearing slippers or boots that he has put on without assistance. (OK to use assistive device from OT) This goal is not needed. P: No further inpatient PT planned. Total time spent with patient: 37 minutes for Functional mobility Total timed interventions: 35 minutes for Functional mobility Josefa Dexter PT Pager: [phone] Physical Therapy Rehabilitation Department * Patti Paris RN - 06/09/2014 1:52 PM EDT 1230 PT in to work w/ pt. PT reports to RN pt nauseous. 4 mg IV zofran administered. Pt reports pain not too bad at 4/10. Will continue to monitor. 1330 DIRECTOR GRAPHICS Vita reports pt dry heaving. RN in to assess pt. Pt reports dizziness, continued nausea, and sweaty back. VS obtained and found to be stable. Pt gown moist with sweat. BRIDGETT Mays paged with this information. Nafisa asks this RN to administered 10 mg compazine. Med administered. 1345 Pt sleepy but appears more comforable, eyes closed, reclined in chair. Will continue to monitor. * Josefa Dexter, PT - 06/09/2014 12:43 PM EDT PHYSICAL THERAPY PT was initiated, but stopped because pt had nausea. Pt had only eaten 1/2 of a banana today, so, the nausea might be due to insufficient food for the medications. At baseline pt ambulates with boot with high heels. Presently he is unable to don/doff socks, slippers,or boots. I asked MD to write an OT referral. Pt plans to stay with his sister at discharge. She is independent, but she is WC-bound and unable to assist pt with socks,shoes, boots. I asked pt to think about initially staying withsomeone who is physically able to assist him. Pt has agreed to Home PT. I plan to see pt again this afternoon. At this point, it is not clear if pt will be safe to be discharged today. Josefa Dexter, PT Pager [phone] * Susan Jenkins MD - 06/08/2014 12:05 PM EDT IP Urology Progress Note Shree Ortez Jr. 06/08/2014 S: Pt was seen and examined. Pain controlled on PO oxycodone. Reports mild nausea this morning but tolerated breakfast well. O:Vitals: Temp: [36.4 ??C (97.5 ??F)-37 ??C (98.6 ??F)] Heart Rate: [69-89] Resp: [12-18] BP: (121-140)/(67-94) SpO2: [93 %-100 %] I/O last 3 completed shifts: In: 4071 [P.O.:840; I.V.:3231] Out: 2330 [Urine:2280; Blood:50] General: NAD, A/O x 3 HEENT: NC/AT Chest: CTA b/l, no w/r/r Cardiac: RRR Abdomen: soft, appropriately tender, benign Extremity: no c/c/e Incision: incisions c/d/i. No evidence of hematoma/seroma/infection. Recent Results (from the past 24 hour(s)) BASIC METABOLIC PANEL (NON-FASTING) Component Value Range Glucose Lvl 104 60 - 199 mg/dL BUN 21 (*) 10 - 20 mg/dL Creatinine 1.64 (*) 0.80 - 1.50 mg/dL Sodium 139 135 - 145 mmol/L Potassium 4.5 3.5 - 5.0 mmol/L Chloride 103 98 - 107 mmol/L CO2 25 22 - 31 mmol/L Anion Gap 11 5 - 15 mmol/L Calcium 8.4 (*) 8.5 - 10.5 mg/dL Estimated GFR 43 (*) >=60 HEMOGRAM Component Value Range WBC 7.9 4.0 - 10.0 x10(3)/mcL RBC 3.93 (*) 4.63 - 6.08 x10(6)/mcL Hemoglobin 12.1 (*) 13.7 - 17.5 gm/dL Hematocrit 36.4 (*) 40.0 - 51.0 % MCV 92.6 (*) 79.0 - 92.0 fL MCH 30.8 25.6 - 32.2 pg MCHC 33.2 32.0 - 36.5 gm/dL Platelets 198 145 - 370 x10(3)/mcL RDWSD 45.0 35.0 - 46.0 fL RDWCV 13.2 10.9 - 14.4 % MPV 10.5 9.0 - 12.0 fL DIFFERENTIAL, AUTOMATED Component Value Range Neutrophils % 75.1 (*) 34.0 - 71.0 % Neutr Abs (ANC) 5.94 1.50 - 6.30 x10(3)/mcL Lymphocytes % 17.1 (*) 19.0 - 53.0 % Lymphocytes Abs 1.4 1.0 - 3.6 x10(3)/mcL Monocytes % 7.7 4.0 - 13.0 % Monocyte Abs 0.6 0.2 - 1.0 x10(3)/mcL Eosinophils % 0.0 0.0 - 7.0 % Eosinophils Abs 0.0 0.0 - 0.5 x10(3)/mcL Basophils % 0.0 0.0 - 2.0 % Basophils Abs 0.0 0.0 - 0.2 x10(3)/mcL Immature Gran % 0.10 0.00 - 0.66 % Brittani Gran Abs 0.01 0.00 - 0.05 x10(3)/mcL A/P: Shree Ortez Jr. is a 64 y.o. male patient s/p left laparoscopic radical nephrectomy POD1 Plan: Neuro: PO oxycodone prn, PO Tylenol, IV morphine for breakthrough pain Pulm: satting well on RA CV: stable GI: Regular diet : Grimaldo removed this morning. FEN: LR @ 100 ml/hr, replace electrolytes as needed ID: afebrile, WBC 7.9 Heme: Continue ppx heparin Endo:No issues Proph: SCDs, SQ heparin Dispo: Floor status Attending Addendum: Patient seen and examined. Agree with plan as above. Susan Jenkins MD * Светлана Fontaine RN - 06/07/2014 3:32 PM EDT Patient Name: Shree Ortez Jr. Patient Age: 64 y.o. Birthdate: 1950 Admit date: 06/07/2014 Attending Physician: Susan Jenkins MD Pt arrived to floor accompanied by his family. He is alert and oriented with complaints of pain. Hewas given narcotic pain medication for relief. IV in the right hand running fluids. 3 lap sites andincision to the abdomen are clean and dry with dermabond closure. Grimaldo draining clear yellow urine. Pt very sleepy but easily arousable. He was given call chiu with instructions on use and masimo was initiated. Will monitor closely. * Nafisa Barksdale PA - 06/07/2014 2:38 PM EDT Post-op Check Shree Ortez 06/07/2014 S: Pt was seen and examined. Pain reasonably well controlled on PO oxycodone. Denies nausea and vomiting. O:Vitals: Temp: [36.3 ??C (97.3 ??F)-37 ??C (98.6 ??F)] Heart Rate: [79-92] Resp: [11-18] BP: (121-140)/(67-85) SpO2: [89 %-97 %] Intake/Output Summary (Last 24 hours) at 06/07/14 1439 Last data filed at 06/07/14 1411 Gross per 24 hour Intake 2119 ml Output 590 ml Net 1529 ml General: NAD, A/O x 3 HEENT: NC/AT Chest: CTA b/l, no w/r/r Cardiac: RRR Abdomen: soft, appropriately tender, benign Extremity: no c/c/e Incision: incisions c/d/i. No evidence of hematoma/seroma/infection A/P: Shree Ortez Jr. is a 64 y.o. male patient s/p left laparoscopic radical nephrectomy. 1. Pain- controlled. Increased range of oxycodone to 5-15 mg Q4. 2. Nausea- denies 3. Specific c/o- none 4. Volume status- Urine output adequate, continue with IVF, will monitor 5. DVT prophylaxis- SCDs * Pastor Simpson RN - 06/07/2014 12:34 PM EDT 1234 Report from Raul Strickland RN for break coverage. VSS, patient resting quietly. * Genna Strickland RN - 06/07/2014 12:31 PM EDT 1230- Pt. Started on sips of H2O. * Genna Strickland RN - 06/07/2014 11:54 AM EDT 1120- Pt. Very restless pulling @ equipment & noncompliant. documented in this encounter H&P Notes * Lata Agustin MD - 06/07/2014 7:11 AM EDT Patient Name: Shree Ortez Jr. Patient Age: 64 y.o. Birthdate: 1950 Admit date: 06/07/2014 Attending Physician: Susan Jenkins MD Urology Pre-Op H&P ID: 64 y.o. M presenting for planned laparoscopic LEFT radical nephrectomy Interval: No changes since recent office visit with Dr. Jenkins Reports bowel prep did not work Not taking any blood thinners PMH: No past medical history on file. Patient Active Problem List Diagnosis Code ??? Amputation of finger tip 886.0 ROS: No acute illnesses Negative for F/C, no CP or SOB, no N/V or abd pain Meds: No current facility-administered medications on file prior to encounter. Current Outpatient Prescriptions on File Prior to Encounter Medication Sig Dispense Refill ??? terazosin (HYTRIN) 1 mg capsule Take 1 mg by mouth nightly. ??? acetaminophen (TYLENOL) 500 mg tablet Take 1,000 mg by mouth every 6 hours as needed. Exam: Filed Vitals: 06/07/14 0617 BP: 136/85 Pulse: 82 Temp: 37 ??C (98.6 ??F) Resp: 12 NAD, pleasant Abd soft, ND, NT RLQ scar noted Labs: Urine culture reviewed. A/P. Consent obtained and site marked. Proceed as planned. LATA AGUSTIN MD documented in this encounter Miscellaneous Notes * Miscellaneous - Provider, Scanning - 06/11/2014 9:51 AM EDT * Miscellaneous - Provider, Scanning - 06/11/2014 9:51 AM EDT * Initial Assessments - Kaye Garcia, WADE - 06/10/2014 1:46 PM EDT Occupational Therapy Evaluation Patient profile: Shree Ortez Jr. is a 64 y.o. male patient of Susan Barrientos MD, admitted on 06/07/2014 for L laparoscopic radical nephrectomy on 05/07/14. The renal mass was found during work up for L Inguinal Hernia. 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 Lap, radical nephrectomy 06/07/2014 @LAPAROSCOPY, RADICAL NEPHRECTOMY performed by Susan Jenkins MD at [facility] MAIN OR Social History: Patient lives alone, plans to stay with sister upon discharge home.( sister uses WC, 4WW, unable tophysically assist patient upon discharge) Home: sister's home is senior apt., 2 stairs in, once in one floor Functional Status: ADLs: independent, Mobility: independent indoors, outdoors uses hiking pole. DME: sister has seat for showering. Precautions/Special Considerations: Full code, ambulate with assist, activity as tolerated. Subjective: I find a way to do things. Objective: Patient was seen today for OT evaluation. Cognitive Status/Behavior: Alert, oriented, cooperative, motivated for independence. Communication: WFL Vision/Perception: WFL Range of motion, strength, coordination, sensation: : Hand dominance: left but since his amputations has used his R hand as well as L Bilateral UEs are grossly within functional limitations BLE: Limitations at hip and knee for lower body self care. Activities of Daily Living: Self-feeding: independent Hygiene grooming: independent Upper and lower body dressing and bathing: ?? Patient was provided and instructed in the use of sock aid, resource teacher, long handled bathsponge forADLs. ?? Patient demonstrated modified independence in donning socks, pants, boots, slippers using assistive devices. ?? Encouraged patient to use sock aid and resource teacher for lower body self care as he tends to hold his breath, encouraged him to take note of when he is holding his breath, to sit more upright and breathe through self care. Toileting: Transfers modified independent with FWW; reports independence in hygiene after toileting. Functional Mobility: Supine to sit: n/a Sit to stand: supervision to FWW Ambulation: initially with slippers, FWW, supervision, however he looked uncomfortable, returned toroom and patient donned boots using assistive devices to don and then tuck laces in, then ambulatedaround pod with FWW, supervision. Stand to sit: supervision Sit to supine: n/a Balance: sitting good, standing with FWW: good. IADL???s: Assistance available to patient. Endurance: Information taken from last recorded vitals in flowsheet. Last value Range last 8 hrs Heart Rate Heart Rate: 95 Heart Rate: [86-95] Blood Pressure BP: 140/83 mmHg BP: (128-140)/(83) SpO2 SpO2: 98 % SpO2: [97 %-98 %] On room air Pain: Near incisions, with bending forward or twisting. Reviewed positioning for self care that would be more comfortable.. Skin: Incisions healing, no redness Informed Consent: The patient agrees to and understands the OT treatment plan and goals. Education: Patient has been educated on Role of occupational therapy/rehabilitation, Assistive device/technique, ADL, Safety, Functional Mobility, Activity pacing/Energy conservation, Recommendationsand Discharge planning and verbalizes and demonstrates understanding. Patient status, treatment, and mobility recommendations discussed with nursing. Assessment: Patient now demonstrates ability to manage lower body self care safely and independently with assistive devices, he is able to mobilize to bathroom using FWW independently, he has been instructed in strategies to manage his ADLs without holding his breath. No further OT indicated at this time. Recommendations: Equipment needs at discharge: Says he can use his sister's 4ww if needed. Discharge Recommendations: no further OT Goals: met 1. Patient will stand at sink level independently for 10 minutes for ADL tasks. 2. Patient will dress lower body independently, with adaptive equipment as needed. 3. Patient will ambulate to the bathroom independently, assistive device as needed. 4. Patient will demonstrate an understanding of managing ADLs without holding his breath. Plan: D/C to sister's home, no further OT. Eval date: 06/10/2014 Total time spent with patient: 45 minutes Total timed interventions: 10 minutes self care Pager: [phone] KAYE GARCIA OT 06/10/2014 Occupational Therapy Rehabilitation Department * Discharge Summary - Nafisa Barksdale PA - 06/10/2014 12:39 PM EDT Discharge Summary Patient Name: Shree Ortez Jr. Patient Age: 64 y.o. Language: Togolese Race: White Ethnicity: Not nor Admit date: 06/07/2014 Discharge date: 06/10/2014 Attending Physician: Susan Jenkins MD Discharge Physician: same Discharge Diagnoses (Hospital Problems) and Secondary Diagnoses (Chronic Problems): Left renal mass Active Non-Hospital Problems Diagnosis ??? Amputation of finger tip Operations/Major Procedures: Procedure(s): @LAPAROSCOPY, RADICAL NEPHRECTOMY 06/07/2014 History of Presentation (from Dr. Calix's' note 04/28/14): 63[address] Rivas for an incidentally discovered left renal mass. He was recently seen for evaluation of a left inguinal hernia. He underwent a CT scan and then a follow up MRI that revealed a complex mixed solid and cystic but predominately solid left renal mass with imaging characteristics most consistent with a primary renal neoplasm. No weight loss or anorexia, back or bone pain. He does have chronic left hip pain from osteoarthritis. He has a normal CBC and normal renal function. No FH of renal tumors. No flank or abdominal pain. On Hytrin 1mg for hypertension. Denies change in urinary habits. No gross hematuria. Hospital Course: Patient was admitted electively to [facility] via the same day surgery program and underwent the above procedure. He tolerated surgery well and was tranferred from the PACU to the general floor in good condition a few hours after surgery. Patient's hospital course was significant for some nausea and abdominal distension which resolved. He remained afebrile, with stable vital signs throughout his hospital stay. Today, on POD# 3 he has met all criteria for discharge home: his pain is well controlled with medications by mouth, he is tolerating a regular diet, is voiding spontaneously without difficulties, and is up and ambulating without complications. He has been deemed safe for discharge. Vital Signs at Discharge: Weight: Wt Readings from Last 1 Encounters: 06/07/14 96.163 kg (212 lb) Height: Ht Readings from Last 1 Encounters: 06/07/14 172.7 cm (5' 8) BMI: Body mass index is 32.24 kg/(m^2). Last value Range last 24 hrs Temperature Temp: 36.9 ??C (98.4 ??F) Temp: [36.5 ??C (97.7 ??F)-36.9 ??C (98.4 ??F)] Heart Rate Heart Rate: 86 Heart Rate: [68-86] Blood Pressure BP: 128/83 mmHg BP: (128-155)/(80-102) Respiratory Rate Resp: 18 Resp: [18-20] SpO2 SpO2: 97 % SpO2: [96 %-98 %] Exam at Discharge: General: NAD CV: RRR Pulm: CTAB Abd: obese, + BS, appropriately tender, moderately distended Incision: c/d/i Ext: warm, well perfused, no edema Functional and Cognitive Status: Ambulating and cognitively intact. Important Studies and Lab Data: Lab Results Component Value Date WBC 7.9 06/08/2014 RBC 3.93* 06/08/2014 HGB 12.1* 06/08/2014 HCT 36.4* 06/08/2014 MCV 92.6* 06/08/2014 MCH 30.8 06/08/2014 MCHC 33.2 06/08/2014 PLATELET 198 06/08/2014 RDWCV 13.2 06/08/2014 Lab Results Component Value Date NA 140 06/09/2014 K 4.5 06/09/2014 CL 103 06/09/2014 CO2 26 06/09/2014 BUN 23* 06/09/2014 CREATININE 1.76* 06/09/2014 GLUCOSE 95 06/09/2014 GLUCFASTING 114* 05/19/2011 CALCIUM 8.8 06/09/2014 Studies: None Pending Studies and Lab Data: Surgical pathology Discharge Conditions/Prognosis: Stable Discharge to: Home Updated Allergies/ADRs: No Known Allergies Immunizations Given this Hospitalization: There is no immunization history on file for this patient. Discharge Medications: Your Medications As of 06/10/2014 12:36 PM New Medications Dose Details bisacodyl 10 mg Supp Commonly known as: DULCOLAX Place 1 suppository rectally daily as needed. 10 mg Refills: 0 docusate sodium 100 mg Cap Commonly known as: COLACE Take 1 capsule by mouth 2 times daily. Recommend taking stool softener as long as you are taking narcotic pain medication. 100 mg Refills: 0 ondansetron 4 mg Tab Commonly known as: ZOFRAN Take 1 tablet by mouth every 8 hours as needed. 4 mg Quantity: 15 tablet Refills: 0 oxyCODONE 5 mg Tab Commonly known as: ROXICODONE Take 1-3 tablets by mouth every 4 hours as needed for Pain. 5-15 mg Quantity: 45 tablet Refills: 0 Continued medications with new dosing Dose Details acetaminophen 500 mg Tab Commonly known as: TYLENOL Take 2 tablets by mouth every 8 hours as needed for Pain. What changed: - how often to take the med - reasons to take the med 1000 mg Refills: 0 Continued medications, unchanged Dose Details terazosin 1 mg Cap Commonly known as: HYTRIN Take 1 mg by mouth nightly. 1 mg Refills: 0 Smoking Status at Discharge: History Smoking status ??? Former Smoker ??? Quit date: 05/28/1970 Smokeless tobacco ??? Never Used Instructions Given to Patient at Discharge: Patient Instructions UROLOGY DISCHARGE INSTRUCTIONS Call your doctor for: fevers greater than 100.5 severe nausea or vomiting increasing pain not controlled by pain medications increasing redness or drainage from incisions decreased urine output, inability to urinate, or if your catheter is no longer draining The number for questions is [phone] before 5 PM weekdays and [phone] after 5 PM and weekends. Activity level: No heavy lifting greater than 10 pounds (about equal to a full gallon jug) for the next 4 weeks or until cleared to do so at follow-up appointment. Otherwise activity as tolerated by comfort level. Diet: You may resume your regular diet as tolerated. Driving: No driving while still taking opioid pain medications (wait at least 6- 8 hours since last dose). No driving if you are still sore from surgery as it may limit your ability to react quickly if necessary. Shower/Bath: You may shower and get incision(s) wet. Pat dry immediately following. Do not scrub them vigorously for the next 2-3 weeks. Do not soak incision(s) (i.e. soaking in bath or swimming) until told you may do so by a doctor, as this may promote a wound infection. Wound Care: You may cover wounds with sterile gauze as needed to prevent incision rubbing on clothes or for any seepage. Follow up Appointments: Follow-up appointment will be scheduled with Dr. Jenkins in 7-10 days. Appointment will be mailed to you. Please call [phone] (clinic number for appointments) to confirm date and time of your appointment if you do not receive it. General Instructions None Future Appointments and Orders Future Orders Please Complete By Expires Referral to Home Health - at DISCHARGE [[id number] CPT(R)] Process Instructions: Scheduling Instructions: Comments: DOCUMENTATION FOR VNA SERVICES (INCLUDING THOSE PATIENTS WITH MEDICARE COVERAGE REQUIRING HOME VNA SERVICES AND/OR HOSPICE SERVICES) PATIENT'S LOCATION: Shree Ortez C/o sisterMinal [address] [place], [place] [phone] Home: [address] [place] [phone] There is no home phone number on file. Cell: Telephone Information: Cell Changer's Name: Patient, Minal andersen [phone] In discussion with the attending physician, it is certified that this patient is under their care and that they, or a Nurse Practitioner,Clinical Nurse specialist or Physician Sub Plant Manager who is working directly with them, had a face to face encounter that meets the physician face to face encounter requirements with this patient on 06/10/2014 The encounter with the patient was in whole, or in part, for the following medical condition, whichis the primary reason for home health care services: RENAL MASS Procedure(s): @LAPAROSCOPY, RADICAL NEPHRECTOMY - left In discussion with the provider, it is certified that, based on their findings, the following services are medically necessary for home health services. To provide the following care/treatments with the clinical findings supporting the need for services as follows: HOME CARE ORDERS: PT ORDERS: Continue rehab for endurance, gait stability and strength with mobility and transfers. Home safety evaluation. Home exercise program if appropriate HOME HEALTH CARE AGENCY: [facility]. PHONE: [phone] FAX: [phone] Start of care: Day after discharge (06-11-14) FOR MEDICARE ONLY: In discussion with the attending physician, it is certified that the clinical findings support thatthis patient is homebound because absences from home require considerable and taxing effort due to:post-op status, unsteady gait, safety, pain Please note that any additional orders needs or changes will need to be obtained from this patient's PCP: IVANNA BARKLEY APRN [address] / [place] [address] All VNA agencies which cover the area of patient's residence have been reviewed, either verbally castro writing, and patient/family have chosen the home health care agency noted Questions: Responses: [facility] information [facility] post [facility] Sisters home What services are requested Physical Therapy Start date 06/11/2014 Responsible MD post discharge contact info PCP/Susan Jenkins Md [facility] Follow-Up: No future appointments. Primary Care Provider: IVANNA BARKLEY APRN [phone] Follow-up Recommendations for Providers: Please see discharge instructions. Call your doctor if: Please call your doctor immediately or go to an Emergency Department if you notice worsening pain not controlled by pain medications, uncontrolled headache, vision changes, chest pain, difficulty breathing, persistent nausea and vomiting, new redness or swelling in any extremities, new onset weakness or changes in sensation, or for any fevers greater than 101.3 F. Your care was managed by the Urology Team at [facility]. If you have any questions or concerns, please feel free to contact us. Provider Contact Information: Urology Clinic: [facility] (after business hours): * Plan of Care - Janet Marin RN - 06/10/2014 11:20 AM EDT Problem: Fall/Trauma/Injury Risk (Adult, Obstetrics) Goal: Identify Signs and Symptoms and Related Risk Factors Signs and symptoms and related risk factors are identified upon initiation of Human Response Clinical Practice Guideline (CPG) Patient ambulating x1 guard asisst and walker, PT and OT worked with patient, plan is for dischargetoday. Problem: Pain, Acute (Adult, Obstetrics) Goal: Identify Signs and Symptoms and Related Risk Factors Signs and symptoms and related risk factors are identified upon initiation of Human Response Clinical Practice Guideline (CPG) Patient denies need for pain medication, will continue to monitor. * Plan of Care - Lamar Jose RN - 06/10/2014 5:43 AM EDT Problem: General Plan of Care Goal: Plan of Care Review Plan of care reviewed with pt at start of shift regarding pain control, medication administration, vital signs. All questions answered. Problem: Skin Integrity Impairment, Risk/Actual (Adult, Obstetrics) Goal: Identify Signs and Symptoms and Related Risk Factors Signs and symptoms and related risk factors are identified upon initiation of Human Response Clinical Practice Guideline (CPG) Outcome: Therapy, goal partially met Pt with lap sites to abdomen, all well approximated with derma davis, CDI without drainage, s/s infection. Will continue to monitor. All other skin areas free from breakdown. Problem: Fall/Trauma/Injury Risk (Adult, Obstetrics) Goal: Identify Signs and Symptoms and Related Risk Factors Signs and symptoms and related risk factors are identified upon initiation of Human Response Clinical Practice Guideline (CPG) Outcome: Absent and monitoring A&O x 4, call chiu within reach, using appropriately for assistance. Up in room with slippers, walker, stand by assist, slow gait. No falls, will continue to monitor. Problem: Pain, Acute (Adult, Obstetrics) Goal: Identify Signs and Symptoms and Related Risk Factors Signs and symptoms and related risk factors are identified upon initiation of Human Response Clinical Practice Guideline (CPG) Outcome: Therapy, goal partially met Pt states current pain level under control and adequate with pain regimen. See doc flow sheets and MAR. * Plan of Care - Patti Paris RN - 06/09/2014 4:38 PM EDT Problem: Skin Integrity Impairment, Risk/Actual (Adult, Obstetrics) Goal: Identify Signs and Symptoms and Related Risk Factors Signs and symptoms and related risk factors are identified upon initiation of Human Response Clinical Practice Guideline (CPG) Outcome: Therapy, goal partially met Please refer to Dilshad skin assessment scores and shift pressure ulcer prevention documentation in doc flow sheets. Hydration and nutrition promoted. Pt repositions self frequently. Ambulation encouraged. Will continue to monitor. Problem: Fall/Trauma/Injury Risk (Adult, Obstetrics) Goal: Identify Signs and Symptoms and Related Risk Factors Signs and symptoms and related risk factors are identified upon initiation of Human Response Clinical Practice Guideline (CPG) Outcome: Absent and monitoring Please see fall risk assessment scores. Fall reduction program maintained including room lit appropriately for activity, assistive device for ambulation, bed in low position, slip proof slippers on when up and out of bed, and call chiu within reach. Will continue to monitor. Problem: Pain, Acute (Adult, Obstetrics) Intervention: Pain Management Interventions Pt reports 3-5 of 10 pain. Pt localizes pain to abdomen. Pt reports pain as better than yesterday. Pt has intermittent nausea throughout the day. Zofran and compazine. Pt reports relief of nausea with compazine. Pt sleepy but easily arousable to voice. Will continue to monitor. * Initial Assessments - Josefa Dexter, PT - 06/09/2014 2:37 PM EDT Physical Therapy Evaluation Patient profile: Pt. is a 64 y.o. male admitted on 06/07/2014 by Urology for L laparoscopic radical nephrectomy on 05/07/14. The renal mass was found during work up for L Inguinal Hernia. The Hernia will be repaired in the future. Pt initially was likely to go home (to his sister's) today (05/09) but is not doing well enough. He might go to his sister's tomorrow, 06/10. Pt is on . PMH: HTN L inguinal hernia - needs surgical repair HTN Appendectomy Traumatic amputation of 2 fingertips Social History: Patient is Single, retired, lives alone. He plans to stay with his sister at discharge. She is WC-bound (or uses a rollator at times), independent with her own care, but unable to assist pt with socks and slippers or boots. Stairs: 2 without a rail to enter at pt's home. Hopefully his friend will build a rail. One floor Sister's home is WC accessible - Pt does not have to do any stairs there Baseline Mobility: Independent in his home without device. Always wears his boots, which have high heels. Recently he has had some difficulty putting them on (PT suspects due to the hernia and renal mass). Pt uses a hiking stick outside on uneven terrain. Equipment at home: Hiking stick. A rollator is available (different from the 1 his sister sometimesuses). Grab bars and built-in tub seat at sister's home. Precautions/Special Considerations/rehab-related orders: Full code. At risk to fall. High risk for skin breakdown. Ambulate with assist. Abdominal surgery. L inguinal hernia near current surgical incisions. Subjective: ???I guess I won't be leaving here today. My sister would be upset if I don't stay withher when I leave here?? Objective: Pt seen for evaluation today. Friend visiting. Pt had nausea. I returned later and spokewith pt and his friend, but pt was very tired (partly due to medication) and needed to sleep. When I went to see pt in the morning, the tentative plan was for pt to be discharged today. However, the plan now is for pt to stay here tonight and likely be discharged tomorrow. Pain: not that much at abdomen at start of session. Later pt had nausea, perhaps related to not eating enough food and his medications. Vital Signs: Sp02: 92 - 91% on RA HR: 85 - 85 Mental Status: Tends to be slow to respond at times, speaks slowly, moves slowly. But, pt was alertfor most of the 1st session and very pleasant and cooperative. Musculoskeletal: ROM: Impaired. Decreased dorsiflexion, likely due to always wearing his boots with high heels when ambulating prior to admission. (Even wears them in his home). Pt is unable to reach his feet for ADLs. OT has been consulted and plans to work with pt. Strength: Light/moderate resistance UEs and LEs Sensation: Some numbness L hand Bed Mobility/transfers/gait: Need to assess. Pt was up in CC. He developed nausea and later was tootired to work with PT. Per RN, pt had a strange gait pattern when ambulating with [facility] slippersand FWW, lacking heel strike and not always keeping his legs between the walker legs. Informed Consent: The patient agrees to and understands the PT treatment plan and goals. Education: Patient has been educated on Safety , Precautions/protocol, Role of therapy and Discharge planning and needs reinforcement. Staff communication: Spoke with RN and OT. Text pagedomingo SANTANA. Assessment: Pt s/p L laparoscopic radical nephrectomy on 05/07/14 is not safe for discharge today. He was limited by nausea, fatigue, and inability to dress his feet. At 2 different sessions he was not even able to stand with PT (due to nausea the 1st time and fatigue/needing to sleep) the 2nd time.Suspect that the nausea is related to medications and pt not eating much and suspect that the need to sleep is related to the anti-nausea medications. I am hopeful that pt will do much better tomorrow. At baseline pt normally always wears his boots to walk, and it is unclear at this point if he will be able to get them on when he is at his sister's home. The pt would benefit from skilled therapy services to maximize functional independence while in the hospital and to address limitations as noted above. Discharge Recommendations: Pt is not safe to be discharged today. PT strongly recommended that pt stay with someone who can physically help him at discharge, but pt seems determined to stay with his sister. She apparently is independent for her own care, but unable to physically assist pt. Pt said several times that sister would be upset if he doesn't stay with her when he leaves here. At baseline pt normally always wears his boots to walk, and it is unclear at this point if he will be able to get them on when he is at his sister's home. He might have to wear hospital slippers or other slippers, depending on what he accomplishes with OT prior to discharge. Pt does not have to do stairs at his sister's home. There is a rollator there that is available for pt to use. Pt has agreed to Home PT. I will text page GERALD Gonsales. Goals: To be achieved by discharge if pt will be staying with his sister and needs to be physicallyindependent.. 1. Pt. to demonstrate knowledge of precautions during functional activities. 2. Pt. to demonstrate understanding of appropriate exercises, if needed. Pt to work on ankle pumps. 3. SUPINE><R SIDE><SIT independently, with head of bed flat without rail. 4. Pt. to perform transfers independently utilizing a rolling walker. 5. Pt. to ambulate 200 feet; with a rolling walker, and contact guard, while wearing slippers or boots that he has put on without assistance. (OK to use assistive device from OT) 6. Family or caregiver to demonstrate understanding of therapeutic interventions to support the care of the patient. Plan: Pt to be seen tomorrow for above goals. Patient agrees with plan as stated above. Total time spent with patient: 45 minutes for Evaluation Total timed interventions: 0 minutes JOSEFA DEXTER PT 06/09/2014 Pager: [phone] Physical Therapy Rehabilitation Department * Care Management - Olivia Pal MSW - 06/09/2014 12:33 PM EDT Office of Care Management Social Work Note Relevant Information: Worker met with patient to see if he wanted to complete his Advanced Directives as he does not haveany on file. Patient was agreeable. Patient named his brother Armond Ortez as his DPOA followed by his friend Alfredo Rodríguez as his alternate. All questions were answered, forms signed, witnessed, andcopies were made. A copy will be sent to [facility] per his request. Patient to be disch arged later today. CANDIE CASTRO Surgery Research Software Engineer Pager [phone] * Plan of Care - Patti Paris RN - 06/08/2014 7:00 PM EDT Problem: Skin Integrity Impairment, Risk/Actual (Adult, Obstetrics) Goal: Identify Signs and Symptoms and Related Risk Factors Signs and symptoms and related risk factors are identified upon initiation of Human Response Clinical Practice Guideline (CPG) Outcome: Therapy, goal partially met Please refer to Dilshad skin assessment scores and shift pressure ulcer prevention documentation in doc flow sheets. Hydration and nutrition promoted. Pt repositions self frequently. Ambulation encouraged. Will continue to monitor. Problem: Fall/Trauma/Injury Risk (Adult, Obstetrics) Goal: Identify Signs and Symptoms and Related Risk Factors Signs and symptoms and related risk factors are identified upon initiation of Human Response Clinical Practice Guideline (CPG) Outcome: Absent and monitoring Please see fall risk assessment scores. Fall reduction program maintained including room lit appropriately for activity, assistive device for ambulation, bed in low position, slip proof slippers on when up and out of bed, and call chiu within reach. Will continue to monitor. Problem: Pain, Acute (Adult, Obstetrics) Goal: Identify Signs and Symptoms and Related Risk Factors Signs and symptoms and related risk factors are identified upon initiation of Human Response Clinical Practice Guideline (CPG) Outcome: Therapy, goal partially met Pt reports 7-8 of 10 pain. Multiple pain med regimen in place. Pain med regimen reviewed with pt. Pt also reports intermittent nausea. See MAR for administered meds. Heating pad applied to abdomen. Pt encouraged to notify RN if pain not controlled with these interventions. Will continue to monitor. * Initial Assessments - Nicki Lao RN - 06/08/2014 11:20 AM EDT Office of Care Management (OCM) / Clinical Recreation Program Coordinator (CRC) Initial Assessment Has the appropriate physician signed the order to admit? Yes Screening Patient status discussed with multidisciplinary team members and electronic medical record reviewed. ?? Does patient have medicare? No ?? Is patient equal to or greater than 70 years old with private insurance? No ?? Does patient have insurance?Yes ?? Does patient have prescription coverage? Yes ?? Does patient have potential discharge needs based on admitting diagnosis and/or acuity of co-morbidities?Yes, potentially ?? Has patient been admitted within the past 30 days? No ?? Has the physician, patient and/or patient financial representative or other multidisciplinary garment steamer requested a care management consult? No (If patient does not need further evaluation based on screening then .[facility] Evaluation Introduced and reviewed the CRC role with patient and/or patient financial representative. The following information has been gathered from this communication. Reason for Hospitalization/Current Status: RENAL MASS Procedure(s): @LAPAROSCOPY, RADICAL NEPHRECTOMY - left Permission given to speak with sister regarding status. Family/Social support: Single 64 year old residing in [place], [place] alone and is retired. Helists his sister Che and brother, Armond as contacts. He is independent in activities.He may go stay with her sister in [place], [place] in elderly housing and WC bound per RN report. Baseline Functional/Cognitive/Mobility Status: A&O x3, independent in mobility and self-care. (is it feasible for patient to return to previous environment with the same and/or additional resources and supports?) Yes, ? 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 Transportation at Discharge: States his brother will transport by private vehicle. Anticipated Continued Care Needs: Deciding on VNA services at his sisters home. F/u with surgery Plan (If plan is unknown delete the following section and utilize smart phrase [.cmplan] when information becomes available) Based on discussion with patient and/or patient financial representative, physician and other multidisciplinary team members the following information has been gathered: Patient and/or patient financial representative short term goal: Tolerate diet, pain controlled with oral medications, bowel function returned, mobility Patient and/or patient financial representative halfway goal: Return home at prior level of function Patient and/or representatives preferences: Stay with his sister Anticipated discharge resources/services: To be determined.Family, ? VNA Anticipated social supports: Brother,sister, friends Anticipated cost of services: Costs related to SHELLFISH MANAGER, DME, SNF/SWING/ACUTE/LTAC level or care, medications and/or transportation have been provided to the patient and/or patient financial representative. .. Implementation (If plan is unknown delete the following section and utilize smart phrase [.cmimplementation] when information becomes available) Based on discussion with patient and/or patient financial representative, physician, and other multidisciplinary teammembers the following information has been gathered/actions completed. For those being transferred/discharged to another facility, VNA, infusion company, DME, etc. Patient deciding on VNA or not Will offer choices in the [facility] if desired. If Managed Medicare, need to make reasonable attempts, based on the information from the insurer, to limit those agencies/facilities in network. No The patient and/or patient financial representative agrees with the reccommended plan. Deciding on VNA ?? Does patient, patient financial representative and/or anticipated caregivers (whether at home, facility, etc.) require education and/or training on patient care? Yes, pain/bowel management, activity, medications, diet/fluid intake ? If transferring to another level of care what is the goal in that setting (i.e.short term rehab,LTC etc.)?N/A ?? What are the anticipated follow-up needs (PT, PCP, Specialist)?F/U with surgery in the clinic Referrals placed for community resources (i.e.financial, transportation, meal prep etc.)? Not at this time.Will reassess if wants services. Signature: Nicki Lao RN CRC Pager: [phone] * OR Attestation - Susan Jenkins MD - 06/07/2014 12:20 PM EDT Attestation: Case Date: 06/07/2014 I was present and I participated during the entire procedure (does not need to include opening and closing). SUSAN JENKINS MD 06/07/2014 * Op Note - Lata Agustin MD - 06/07/2014 11:42 AM EDT [facility] Operative Note Patient Name: Shree Ortez Jr. : [id number] MR#: [id number] Case Date: 06/07/2014 Surgeon: Surgeon(s) and Role: * Susan Jenkins MD - Primary * Lata Agustin MD - Resident-Surgeon Chief Preoperative diagnosis: RENAL MASS Postoperative diagnosis: RENAL MASS Procedure(s): @LAPAROSCOPY, RADICAL NEPHRECTOMY - left Anesthesia: General Estimated Blood Loss: 50cc Drains: grmialdo Disposition: awakened from anesthesia, extubated and taken to the recovery room in a stable condition, having suffered no apparent untoward event. Condition: doing well without problems (Please see the Surgical Encounter Summary for any Implant and Specimen details pertinent to this patient.) HPI/Surgical Indications: Shree Ortez Jr. is a 64 y.o. man who was seen for a hernia by general surgery. He was found on CT scan to have a renal mass. He presents for planned left laparoscopic nephrectomy. Procedure Description: Mr. Ortez was identified and greeted in the preoperative holding area. He was marked and consented for the procedure. The patient was brought to the OR where bilateral SCD boots were placed. He was given 2g ancef IV perioperatively. He was given general anesthesia without complications. A 16fr grimaldo catheter was placed with sterile technique for clear urine. He was placed in a modified left lateral decubitus position with pressure points carefully padded. Test roll confirmed stability on the table. He was prepped and draped in standard sterile fashion. The abdomen was insufflated transumbilically with a Veress needle to 15mmHg without difficulty. 10mm Optiview trocaraccess was obtained superolateral to the umbilicus under vision. There was no injury to intraabdominal contents. 12mm trocars were placed under vision in the superior and left lateral abdomen. A trocar was placed under vision in the lower midline for assistance. The table was rotated toward the patient's right side facilitating exposure. There were some adhesions between the colon and the anterior abdominal wall which were taken down with the monopolar scissors. The colon was reflected mediallyusing a combination of blunt dissection and the Ligasure. The kidney was exposed. The splenorenal at tachments were divided allowing the spleen and splenic flexure to be reflected medially. The ureterand gonadal vein were identified below the lower pole of the kidney. They were lifted anteriorly off the psoas muscle and that plane was developed out toward the lateral abdominal wall. Using the Ligasure, the tissue was dissected off the hilum medially and inferiorly. The vein was exposed. A largepacket of tissue containing the artery was first exposed and taken with a stapler. The renal vein was then dissected free and taken with a stapler distal to the adrenal vein. The parenchyma of the upper pole of the kidney was exposed and using this plane, the adrenal was released from the upper pole and spared. The upper pole attachments were taken. The ureter was clipped and ligated, as was the gonadal vein. The remaining lower pole attachments were taken, as were the lateral attachments. The remaining upper pole attachments were divided with the Ligasure. The specimen was free and put into a large Endocatch bag. The area was inspected and meticulous hemostasis was achieved. There was no bleeding encountered when the pneumoperitoneum pressure was decreased. The lateral port fascia was closed with the Darius Thomasen device. The other ports were removed under vision. The specimen was extracted through a lower midline incision. The fascia was closed with interrupted [id number] 0 vicryl sutures. The skin incisions were closed with 4-0 monocryl suture. The patient was woken and bro ught to the PACU in stable condition. He tolerated the procedure well. * Brief Op Note - Lata Agustin MD - 06/07/2014 11:29 AM EDT Brief Operative Note Patient Name: Shree Ortez Jr. : [id number] MR#: [id number] Case Date: 06/07/2014 Surgeon: Surgeon(s) and Role: * Susan Jenkins MD - Primary * Lata Agustin MD - Resident-Surgeon Chief Preoperative diagnosis: RENAL MASS Postoperative diagnosis: RENAL MASS Procedure(s): @LAPAROSCOPY, RADICAL NEPHRECTOMY - left Anesthesia: General Findings: uncomplicated left nephrectomy. Single artery and vein. Hilum controlled with maría. Specimen extracted through small lower midline incision. Complications: none Fluids: see anesthesia record Estimated Blood Loss: 50cc Drains: grimaldo Disposition: awakened from anesthesia, extubated and taken to the recovery room in a stable condition, having suffered no apparent untoward event. Condition: doing well without problems (Please see the Surgical Encounter Summary for any Implant and Specimen details pertinent to this patient.) * Miscellaneous - ProviderUsman - 06/07/2014 9:00 AM EDT documented in this encounter Plan of Treatment Scheduled Procedures Name Priority Associated Diagnoses Date/Ti me EGD, UPPER GI ENDOSCOPY (WRV U 2.09) Esophageal dysphagia Encounter for colorectal cancer screening COLONOSCOPY, DIAGNOSTIC (WRV U 3.26) Esophageal dysphagia Encounter for colorectal cancer screening documented as of this encounter Procedures Procedure Name Priority Date/Time Associated Diagnosis Comments BASIC METABOLIC PANEL Routine 06/09/2014 5:58 AM EDT HEMOGRAM Routine 06/08/2014 4:24 AM EDT DIFFERENTIAL, AUTOMATED Routine 06/08/2014 4:24 AM EDT CBC (WITH DIFF) Routine 06/08/2014 4:24 AM EDT BASIC METABOLIC PANEL Routine 06/08/2014 4:24 AM EDT SURGICAL PATHOLOGY REPORT Routine 06/07/2014 10:53 AM EDT SPECIMEN TO PATHOLOGY Routine 06/07/2014 10:42 AM EDT @LAPAROSCOPY, RADICAL NEPHRECTOMY (WRVU 25.06) Yes 06/07/2014 7:35 AM EDT RENAL MASS documented in this encounter Results * (ABNORMAL) Basic Metabolic Panel (non-fasting) (06/09/2014 5:58 AM EDT) Glucose 95 60 - 199 mg/dL CERNER MILLENNIUM Comment:Diabetes: >=200 mg/d L plus symptoms Blood Urea Nitrogen 23(H) 10 - 20 mg/dL CERNER MILLENNIUM Creatinine 1.76(H) 0.80 - 1.50 mg/dL CERNER MILLENNIUM Comment: Please note that the pediatric reference intervals supplied above were not validated at [facility]. Results from pediatric patients should be interpreted in conjunction to the patient's age, height and muscle mass. Sodium 140 135 - 145 mmol/L CERNER MILLENNIUM Potassium 4.5 3.5 - 5.0 mmol/L CERNER MILLENNIUM Comment: Please note: ??Patients with WBC >100,000 may have falsely elevated Potassium levels. ??For accurate Potassium quantification in these patients send serum separator tube (gold top) for subsequent determinations. ??Contact the Clinical Chemistry Laboratory if there are any questions. Chloride 103 98 - 107 mmol/L CERNER MILLENNIUM Carbon Dioxide 26 22 - 31 mmol/L CERNER MILLENNIUM Anion Gap 11 5 - 15 mmol/L CERNER MILLENNIUM Calcium 8.8 8.5 - 10.5 mg/dL CERNER MILLENNIUM Est Glomerular Filtration Rate 39(L) >=60 CERNER MILLENNIUM Comment: This estimated GFR [...] the following links into your internet browser. http://[employer]DHnkdep [email or web address]://[employer]DHMCnkf Blood specimen (specimen) 06/09/2014 5:58 AM EDT 06/09/2014 6:07 AM EDT Narrative Resulting Agency Comment Spec In Lab Susan Jenkins MD CHEMISTRY ORDERABLES CERNER MILLENNIUM * (ABNORMAL) Differential, Automated (06/08/2014 4:24 AM EDT) Neutrophil % 75.1(H) 34.0 - 71.0 % CERNER MILLENNIUM Neutrophil Absolute 5.94 1.50 - 6.30 x10(3)/mc L CERNER MILLENNIUM Lymph % 17.1(L) 19.0 - 53.0 % CERNER MILLENNIUM Lymphocytes Abs 1.4 1.0 - 3.6 x10(3)/mc L CERNER MILLENNIUM Monocyte % 7.7 4.0 - 13.0 % CERNER MILLENNIUM Monocyte Abs 0.6 0.2 - 1.0 x10(3)/mc L CERNER MILLENNIUM Eos % 0.0 0.0 - 7.0 % CERNER MILLENNIUM Eosinophils Abs 0.0 0.0 - 0.5 x10(3)/mc L CERNER MILLENNIUM Basophil % 0.0 0.0 - 2.0 % CERNER MILLENNIUM Baso Absolute 0.0 0.0 - 0.2 x10(3)/mc L CERNER MILLENNIUM Immature Gran % 0.10 0.00 - 0.66 % CERNER MILLENNIUM Comment: Immature granulocytes(IG's)percentage and absolute count will include metamyelocytes, myelocytes, and promyelocytes. Blood smears from CBCs yielding IG's will be scanned manually for concordance. If this scan disagrees with the automated IG or if promyelocytes are noted, a manual differential will be performed. Immature Gran Absolute 0.01 0.00 - 0.05 x10(3)/mc L CERNER MILLENNIUM Blood specimen (specimen) 06/08/2014 4:24 AM EDT 06/08/2014 4:47 AM EDT Narrative Resulting Agency Comment Spec In Lab Susan Jenkins MD HEMATOLOGY ORDERABLE S CERNER MILLENNIUM * (ABNORMAL) Hemogram (06/08/2014 4:24 AM EDT) White Blood Cell 7.9 4.0 - 10.0 x10(3)/mc L CERNER MILLENNIUM Red Blood Cell 3.93(L) 4.63 - 6.08 x10(6)/mc L CERNER MILLENNIUM Hemoglobin 12.1(L) 13.7 - 17.5 gm/dL CERNER MILLENNIUM Hematocrit 36.4(L) 40.0 - 51.0 % CERNER MILLENNIUM Mean Cell Volume 92.6(H) 79.0 - 92.0 fL CERNER MILLENNIUM Mean Cell Hemoglobin 30.8 25.6 - 32.2 pg CERNER MILLENNIUM Mean Cell Hemoglobin Concentration 33.2 32.0 - 36.5 gm/dL CERNER MILLENNIUM Platelet 198 145 - 370 x10(3)/mc L CERNER MILLENNIUM RDW Standard Deviation 45.0 35.0 - 46.0 fL CERNER MILLENNIUM RDW coefficient of variation 13.2 10.9 - 14.4 % CERNER MILLENNIUM Mean Platelet Volume 10.5 9.0 - 12.0 fL CERNER MILLENNIUM Blood specimen (specimen) 06/08/2014 4:24 AM EDT 06/08/2014 4:47 AM EDT Narrative Resulting Agency Comment Spec In Lab Susan Jenkins MD HEMATOLOGY ORDERABLE S CERNER MILLENNIUM * (ABNORMAL) Basic Metabolic Panel (non-fasting) (06/08/2014 4:24 AM EDT) Glucose 104 60 - 199 mg/dL CERNER MILLENNIUM Comment:Diabetes: >=200 mg/d L plus symptoms Blood Urea Nitrogen 21(H) 10 - 20 mg/dL CERNER MILLENNIUM Creatinine 1.64(H) 0.80 - 1.50 mg/dL CERNER MILLENNIUM Comment: Please note that the pediatric reference intervals supplied above were not validated at [facility]. Results from pediatric patients should be interpreted in conjunction to the patient's age, height and muscle mass. Sodium 139 135 - 145 mmol/L CERNER MILLENNIUM Potassium 4.5 3.5 - 5.0 mmol/L CERNER MILLENNIUM Comment: Please note: ??Patients with WBC >100,000 may have falsely elevated Potassium levels. ??For accurate Potassium quantification in these patients send serum separator tube (gold top) for subsequent determinations. ??Contact the Clinical Chemistry Laboratory if there are any questions. Chloride 103 98 - 107 mmol/L CERNER MILLENNIUM Carbon Dioxide 25 22 - 31 mmol/L CERNER MILLENNIUM Anion Gap 11 5 - 15 mmol/L CERNER MILLENNIUM Calcium 8.4(L) 8.5 - 10.5 mg/dL CERNER MILLENNIUM Est Glomerular Filtration Rate 43(L) >=60 CERNER MILLENNIUM Comment: This estimated GFR [...] the following links into your internet browser. http://[employer]DHnkdep http://[employer]DHMCnkf Blood specimen (specimen) 06/08/2014 4:24 AM EDT 06/08/2014 4:47 AM EDT Narrative Resulting Agency Comment Spec In Lab Susan Jenkins MD CHEMISTRY ORDERABLES [facility] * Surgical Pathology Report (06/07/2014 10:53 AM EDT) Final Diagnosis ? [facility] ? Provider: ?? SUSAN JENKINS ?Pt. Name: ?? BALJINDER GARCÍA, SHREE Aparicio ? Acc #: ?[id number] ?Pt. ? Col Date: ?? 06/07/2014 ? /Sex: ?1950,(64 years),Male ? Rec Date: ?? 06/07/2014 ? LOC: ?4WST ? SURGICAL PATHOLOGY ? ---Pathologic Diagnosis--- ? Specimen type: ?Radical nephrectomy ? Histologic type: ?Renal cell carcinoma, clear cell ? type ? Kimberli nuclear grade: ?2/4 ? Laterality: ? Left ? Tumor site: ? Lower pole ? Focality: ? Unifocal ? Tumor size: ?- Greatest dimension: ?4.7 cm ?- Additional dimensions: ? 4.5 x 1.4 cm ? Macroscopic extent of tumor: ?Tumor extension into major veins ? Margins: ?Margins uninvolved by invasive ? carcinoma ? Adrenal gland: ?Not present ? Venous (large vessel) invasion: ? Present (A5,6) ? Lymphatic (small vessel) invasion: ??Absent ? Additional pathologic findings: ? None ? TNM Staging (AJCC, 7th ed., 2009): ? Primary tumor stage: ?pT3a (tumor extends into renal vein ? or its segmental branches, ? perirenal and/or ? renal sinus fat, but not ? beyond Gerota? s fascia) ? Regional lymph nodes: ? pNX (cannot be assessed) ? Distant metastasis: ? pMX (cannot be assessed or not ?applicable) ? CR-0 ? 06/10/14 ? ARS ? 06/10/14 Verified by: ? Narcisa SANTANA, Jesus Green ? Pathologist ? (Electronic Signature) ? The attending pathologist whose signature appears on this report has ? reviewed all diagnostic slides and has edited the gross and/or ? microscopic portion of the report in rendering the final pathologic ? diagnosis. ? ---Microscopic Description--- ? Slides reviewed, microscopic description not recorded. ? [facility] ? Provider: ?? SUSAN JENKINS ?Pt. Name: ?? BALJINDER GARCÍA, SHREE Aparicio ? Acc #: ?[id number] ?Pt. ? Col Date: ?? 06/07/2014 ? /Sex: ?1950,(64 years),Male ? Rec Date: ?? 06/07/2014 ? LOC: ?4WST ? SURGICAL PATHOLOGY ? Whole slide scan: ? S [id number] A6-1 ? S [id number] A8-1 ? ---Gross Description--- ? A - Labeled/Fixative: Left kidney, fresh. ? Qty/Size/Weight: Single, 21.5 x 10.5 x 8.0 cm, 599 grams. (overall size and ? weight). ? SPECIMEN DESCRIPTION ? Resection Specimen: Intact left nephrectomy with attached perinephric fat. ? LESION ? Location: Inferior pole. ? Size: 4.7 x 4.5 x 1.4 cm. ? Color: Variegated yellow to yellow-brown. ? Consistency: Rubbery to firm. ? Contour: Multinodular and well-circumscribed. ? Direct Extension: The lesion grossly appears confined to the kidney without ? gross involvement of the calyceal mucosa or the renal pelvis. Grossly the ? lesion appears to be filling the renal sinus inferiorly but without ? infiltration of the sinus fat. ? Focality: unifocal. ? Capsule: The lesion focally abuts but appears contained within the renal ? capsule. ? Gerota's Fascia: Uninvolved, 0.6 cm from the lesion. ? Pelvis: Grossly uninvolved. ? Margins: 0.8 cm from renal pelvis. ? KIDNEY ? Size: 14.5 x 7.0 x 4.0 cm. ? Parenchyma: Grossly unremarkable, brown, with well-demarcated ? corticomedullary borders. Cortex averages 0.5 cm, and the capsule easily ? strips from the smooth cortical surfaces. ? Ureter: At the hilum there is 6.0 cm exposed ureter. The mucosa is brown ? without gross lesions. ? Vein: There are 0.5 cm and 0.6 cm segments of exposed renal vein and ? artery. Grossly there are nodules of tumor within the pelvic sinus fat that ? may represent tumor within renal vein radicals. ? OTHER ? Adrenal: Not present with the specimen. ? Lymph Nodes: Two potential brown hilar nodes present, averaging 0.15 cm. ? Sections: (1) vascular margins; (2) ureter margin; (3) Gerota's fascia; (4) ? renal pelvis; (5-6) tumor and renal sinus; (7-8) tumor and adjacent ? capsule; (9) tumor and adjacent parenchyma; (10) patient financial representative upper pole ? parenchyma.; (11) hilar nodes. (R11) ??shb ? [facility] ? Provider: ?? SUSAN JENKINS ?Pt. Name: ?? BALJINDER GARCÍA, SHREE Aparicio ? Acc #: ?[id number] ?Pt. ? Col Date: ?? 06/07/2014 ? /Sex: ?1950,(64 years),Male ? Rec Date: ?? 06/07/2014 ? LOC: ?4WST ? SURGICAL PATHOLOGY ? ---Clinical Information--- ? Specimen Submitted: ? A - Left kidney ? Clinical History: ? Renal mass ? Clinical Diagnosis: ? Same 06/10/2014 8:47 AM EDT [facility] SPECIMEN FROM KIDNEY / Unknown 06/07/2014 10:53 AM EDT 06/07/2014 10:53 AM EDT Susan Jenkins MD PATHOLOGY/CYTOLOGY O RDERABLES [facility] [place] [address] * Specimen to Pathology (surgical or derm) (06/07/2014 10:42 AM EDT) AP Specimen 06/07/2014 10:4 2 AM EDT 06/07/2014 10:42 AM EDT Narrative [facility] - 06/07/2014 10:42 AM EDT Specimen requisition ordered. ??Separate Pathology report to follow Susan Jenkins MD PATHOLOGY/CYTOLOGY O TRISTIAN [facility] documented in this encounter Visit Diagnoses Not on filedocumented in this encounter Active and Recently Administered Medications Times are shown in EDT. Scheduled Medication Order 06/08/2014 06/09/2014 06/10/2014 acetaminophen (TYLENOL) tablet 1,000 mg 1,000 mg, Oral, EVERY 6 HOURS, First dose (after last modification) on Fri06/08/14 at 1900, Until Discontinued, Maximum dose of acetaminophen is 4000 mg from all sources in 24 hours., Routine 1950 (Given - Provider: Ana Marrero RN) 0248 (Given - Provider: Ana Marrero RN)0651 (Given - Provider: Ana Marrero RN)1237 (Given - Provider: Patti Paris, DEANNA)1820 (Given - Provider: Patti Paris, DEANNA) 0100 (Not Given - Provider: Lamar Jose RN - Reason: Patient/family refused)0636 (Given - Provider: Lamar Jose RN)1237 (Given - Provider: Janet Marin, DEANNA) bisacodyl (DULCOLAX) suppository 10 mg (COMPLETED) 10 mg, Rectal, ONCE, 1 dose, On Fri06/10/14 at 0930, Routine 0954 (Given - Provider: Janet Marin, DEANNA) docusate sodium (COLACE) capsule 100 mg 100 mg, Oral, 2 TIMES DAILY, First dose on Fri06/07/14 at 2100, Until Discontinued, Routine 0957 (Given - Provider: Patti Paris, DEANNA)2334 (Given - Provider: Ana Marrero RN) 0811 (Given - Provider: Patti Paris, DEANNA)2117 (Given - Provider: Lamar Jose RN) 0810 (Given - Provider: Janet Marin, DEANNA) heparin (porcine) subcutaneous injection 5,000 Units (CANCELED) 5,000 Units, Subcutaneous, EVERY 8 HOURS SCHEDULED, First dose (after last reorder) on Fri06/08/14 at 0500, Until Discontinued, Routine 0535 (Given - Provider: Ana Marrero RN)1338 (Given - Provider: Patti Paris RN)2334 (Given - Provider: Ana Marrero RN) 0600 (Given - Provider: Ana Marrero RN)1349 (Given - Provider: Patti Paris RN)2118 (Given - Provider: Lamar Jose RN) 0636 (Given - Provider: Lamar Jose RN)1400 (Due) ondansetron (ZOFRAN) injection 4 mg (COMPLETED) 4 mg, Intravenous, ONCE, 1 dose, On Fri06/08/14 at 1745 1731 (Given - Provider: Patti Paris RN) sodium chloride 0.9 % flush 5 mL (CANCELED) 5 mL, Intravenous, 2 TIMES DAILY, First dose on Fri06/07/14 at 1430, Until Discontinued, Recovery (Recovery-Hospital Unit), Routine 0900 (Given - Provider: Patti Paris RN)2100 (Not Given - Provider: Ana Marrero RN - Reason: Order parameters not met) 0812 (Given - Provider: Patti Paris RN)2117 (Given - Provider: Lamar Jose RN) 0900 (Not Given - Provider: Janet Marin RN - Reason: See comment - Comment: IVF infusing) terazosin (HYTRIN) capsule 1 mg (CANCELED) 1 mg, Oral, NIGHTLY, First dose on Fri06/07/14 at 2100, Until Discontinued, Routine 2333 (Given - Provider: Ana Marrero RN) 2117 (Given - Provider: Lamar Jose RN) Continuous Medication Order 06/08/2014 06/09/2014 06/10/2014 dextrose 5% and sodium chloride 0.45% infusion (CANCELED) 75 mL/hr, Intravenous, CONTINUOUS, Starting on Natty 06/09/14 at 1445, Until Fri06/10/14 at 1643 1447 (New Bag - Provider: Patti Paris RN) 0354 (New Bag - Provider: Lamar Jose RN)1237 (Stopped - Provider: Janet Marin RN) lactated ringers infusion (CANCELED) 100 mL/hr, Intravenous, CONTINUOUS, Starting on Fri06/07/14 at 1200, Until Natty 06/09/14 at 1124, Recovery (Recovery-Hospital Unit) 0733 (New Bag - Provider: Patti Paris RN)1733 (New Bag - Provider: Patti Paris RN) 0250 (New Bag - Provider: Ana Marrero, RN) PRN Medication Order 06/08/2014 06/09/2014 06/10/2014 acetaminophen (TYLENOL) tablet 1,000 mg (CANCELED) 1,000 mg, Oral, EVERY 6 HOURS PRN, Starting on Fri06/07/14 at 1231, Until Fri06/08/14 at 1348, Pain, Fever, Maximum dose of acetaminophen is 4000 mg from all sources in 24 hours., Routine 0535 (Given - Provider: Ana Marrero RN)1307 (Given - Provider: Patti Paris, DEANNA) bisacodyl (DULCOLAX) suppository 10 mg (CANCELED) 10 mg, Rectal, DAILY PRN, Starting on Fri06/07/14 at 1404, Until Fri06/10/14 at 0833, Constipation, Routine 1252 (Given - Provider: Patti Paris, RN) bisacodyl (DULCOLAX) suppository 10 mg 10 mg, Rectal, DAILY PRN, Starting on 06/11/14 at 0000, Until Fri06/10/14 at 1643, Constipation, Routine morphine 2 mg/mL carpuject 1-2 mg (CANCELED) 1-2 mg, Intravenous, EVERY 1 HOUR PRN, Starting on Fri06/07/14 at 1404, Until Natty 06/09/14 at 1124, Pain, for SEVERE pain, May repeat once in 30 minutes if pain not relieved., Routine 1846 (Given - Provider: Patti Paris RN)2135 (Given - Provider: Ana Marrero, DEANNA) ondansetron (ZOFRAN) injection 4 mg (CANCELED)(Linked Group 1) 4 mg, Intravenous, EVERY 8 HOURS PRN, Starting on Fri06/07/14 at 1404, Until Fri06/10/14 at 1643, Nausea, May repeat times one in 30 minutes if ineffective, Recovery (Recovery-Hospital Unit) 1239 (Given - Provider: Patti Paris RN) 1237 (Given - Provider: Patti Paris, RN) ondansetron (ZOFRAN) tablet 4 mg(Linked Group 1) 4 mg, Oral, EVERY 8 HOURS PRN, Starting on Fri06/07/14 at 1404, Until Fri06/10/14 at 1643, Nausea, Vomiting, If multiple antiemetics are ordered, use ondansetron first. PO Preferred. If patient unable to take PO, may give IV if ordered. May repeat times one in 45 minutes if ineffective., Recovery (Recovery-Hospital Unit), Routine 1239 (See Alternative - Provider: Patti Paris RN) 1237 (See Alternative - Provider: Patti Paris RN) oxyCODONE (ROXICODONE) immediate release tablet 5-15 mg 5-15 mg, Oral, EVERY 4 HOURS PRN, Starting on Fri06/07/14 at 1430, Until Fri06/10/14 at 1643, Pain, May repeat 5 mg in 60 minutes if pain not relieved., Routine 0535 (Given - Provider: Ana Marrero RN)1248 (Given - Provider: Patti Paris RN)1730 (Given - Provider: Patti Paris RN)1950 (Given - Provider: Ana Marrero RN - Comment: per MD-nursing communication) 0248 (Given - Provider: Ana Marrero RN)0651 (Given - Provider: Ana Marrero, RN)1821 (Given - Provider: Patti Paris, DEANNA) prochlorperazine (COMPAZINE) injection 10 mg (CANCELED)(Linked Group 2) 10 mg, Intravenous, EVERY 6 HOURS PRN, Starting on Fri06/07/14 at 1404, Until Fri06/10/14 at 1643, Nausea, Vomiting, If multiple antiemetics are ordered, use ondansetron first. If ondansetron ineffective use prochlorperazine. , Recovery (Recovery-Hospital Unit), Routine 184 (See Alternative - Provider: Patti Paris RN) 1339 (Given - Provider: Patti Paris RN) prochlorperazine (COMPAZINE) tablet 10 mg (CANCELED)(Linked Group 2) 10 mg, Oral, EVERY 6 HOURS PRN, Starting on Fri06/07/14 at 1404, Until Fri06/10/14 at 1643, Nausea, Vomiting, If multiple antiemetics are ordered, use ondansetron first. If ondansetron ineffective use prochlorperazine. PO Preferred. If patient unable to take PO, may give IV if ordered., Recovery (Recovery-Hospital Unit), Routine 1845 (Given - Provider: Patti Paris RN) 1339 (See Alternative - Provider: Patti Paris RN) Linked Groups Order Group 1: ondansetron (ZOFRAN) tablet 4 mgJump to med 4 mg, Oral, EVERY 8 HOURS PRN, Starting on Fri06/07/14 at 1404, Until Fri06/10/14 at 1643, Nausea, Vomiting, If multiple antiemetics are ordered, use ondansetron first. PO Preferred. If patient unable to take PO, may give IV if ordered. May repeat times one in 45 minutes if ineffective., Recovery (Recovery-Hospital Unit), Routine Or ondansetron (ZOFRAN) injection 4 mg (CANCELED)Jump to med 4 mg, Intravenous, EVERY 8 HOURS PRN, Starting on Fri06/07/14 at 1404, Until Fri06/10/14 at 1643, Nausea, May repeat times one in 30 minutes if ineffective, Recovery (Recovery-Hospital Unit) Group 2: prochlorperazine (COMPAZINE) tablet 10 mg (CANCELED)Jump to med 10 mg, Oral, EVERY 6 HOURS PRN, Starting on Fri06/07/14 at 1404, Until Fri06/10/14 at 1643, Nausea, Vomiting, If multiple antiemetics are ordered, use ondansetron first. If ondansetron ineffective use prochlorperazine. PO Preferred. If patient unable to take PO, may give IV if ordered., Recovery (Recovery-Hospital Unit), Routine Or prochlorperazine (COMPAZINE) injection 10 mg (CANCELED)Jump to med 10 mg, Intravenous, EVERY 6 HOURS PRN, Starting on Fri06/07/14 at 1404, Until Fri06/10/14 at 1643, Nausea, Vomiting, If multiple antiemetics are ordered, use ondansetron first. If ondansetron ineffective use prochlorperazine. , Recovery (Recovery-Hospital Unit), Routine documented in this encounter Care Teams Sheriffs Officer Relationship Specialty Start Date End Date Ivanna Barkley APRN PCP - General 05/19/11 09/10/15 documented as of this encounter
--- OUTSIDE RECORDS SUMMARY | 2024-07-19 16:50 | XMS_ITS | Encounter Summary ---
Author Organization [facility] [address] [place] [address] Care Team Providers Care Quality Engineering Manager Name Role Phone Ivanna Hughes APRN Primary Care Provider [phone] Encounter Details Date Type Department Care Team (Latest Contact Info) Description 06/03/2014 6:28 AM EDT - 06/03/2014 11:59 PM EDT Hospital Encounter [facility] [place] [address] CLINIC, DR LEONARD Jenkins, Jarocho Dale MD [address] [place] [address] Renal mass Discharge Disposition: Home Social History Tobacco [...] Name Priority Date/Time Associated Diagnosis Comments CT CHEST WO CONTRAST (GENERIC) Routine 06/03/2014 6:51 AM EDT Renal mass documented in this encounter Results * CT chest WO [...] in this encounter Visit Diagnoses Diagnosis Renal mass Unspecified disorder of kidney and ureter documented in this encounter Care Teams Quality Engineering Manager Relationship Specialty Start Date End Date Ivanna Hughes, VERONICA PCP - General 05/19/11 09/10/15 documented as of this encounter
--- OUTSIDE RECORDS SUMMARY | 2024-07-19 16:50 | XMS_ITS | Encounter Summary ---
Author Organization [facility] [place] [address] Care Team Providers Care Clinical Operations Leader Name Role Phone Ivanna Barkley APRN Primary Care Provider [phone] Encounter Details Date Type Department Care Team (Latest Contact Info) Description 06/07/2014 5:45 AM EDT - 06/10/2014 2:43 PM EDT Hospital Encounter [address] [place] [id number] Susan Jenkins MD [address] [place] [address] S/p nephrectomy Discharge Disposition: Home with VNA Social History Tobacco Use Types Packs/Day Years [...] longer draining The number for questions is [phone] before 5 PM weekdays and [phone] after 5 PM and weekends. Activity level: [...] will be mailed to you. Please call [phone] (clinic number for appointments) to confirm date [...] date: 06/07/2014 Attending Physician: Susan Jenkins MD [id number]: Patient states, no questions about discharge summary, HLIV removed by COMMUNICATION ELECTRONIC TECHNICIAN, [facility], patient discharged to sister's house passing flatus, [...] the agency as his sister lives in [facility] . He will have a friend transport him by private car to His sisters. The address is c/o [address], [address], [place] [phone]. RN to review instructions, medications activity and [...] for Functional mobility Josefa Dexter PT Pager: [phone] Physical Therapy Rehabilitation Department * Patti Paris RN - 06/09/2014 1:52 PM EDT 1230 PT in to work w/ pt. PT reports to RN pt nauseous. 4 mg IV zofran administered. Pt reports pain not too bad at 4/10. Will continue to monitor. 1330 COMMUNICATION ELECTRONIC TECHNICIAN Vita reports pt dry heaving. RN in [...] chair. Will continue to monitor. * Josefa Dexter PT - 06/09/2014 12:43 PM EDT PHYSICAL [...] be safe to be discharged today. Josefa Dexter PT Pager [phone] * Susan Jenkins MD - 06/08/2014 12:05 [...] 0.01 0.00 - 0.05 x10(3)/mcL A/P: Shree Aparicio Baljinder Cohen is a 64 y.o. male patient s/p [...] instructed in the use of sock aid, clip loading machine feeder, long handled bathsponge forADLs. ?? Patient demonstrated modified independence in donning socks, pants, boots, slippers using assistive devices. ?? Encouraged patient to use sock aid and clip loading machine feeder for lower body self care as he [...] timed interventions: 10 minutes self care Pager: [phone] KAYE GARCIA OT 06/10/2014 Occupational Therapy Rehabilitation Department * Discharge Summary - Nafisa Barksdale PA - 06/10/2014 12:39 PM EDT Discharge Summary Patient Name: Shree Ortez Jr. Patient Age: 64 y.o. Language: Citizen Of [place] Race: White Ethnicity: Not nor Admit date: [...] Hospital Course: Patient was admitted electively to [facility] via the same day surgery program and [...] longer draining The number for questions is [phone] before 5 PM weekdays and [phone] after 5 PM and weekends. Activity level: [...] will be mailed to you. Please call [phone] (clinic number for appointments) to confirm date and time of your appointment if you do not receive it. General Instructions None Future Appointments and Orders Future Orders Please Complete By Expires Referral to Home Health - at DISCHARGE [[id number] CPT(R)] Process Instructions: Scheduling Instructions: Comments: DOCUMENTATION FOR VNA SERVICES (INCLUDING THOSE PATIENTS WITH MEDICARE COVERAGE REQUIRING HOME VNA SERVICES AND/OR HOSPICE SERVICES) PATIENT'S LOCATION: Shree Aparicio Baljinder Cohen C[address]o [address] [place], [place] [phone] Home: [address] [place] [phone] There is no home phone number on file. Cell: Telephone Information: Data Governance Consultant's Name: Patient, Minal andersen [phone] In discussion with the attending physician, it is certified that this patient is under their care and that they, or a Nurse Practitioner,Clinical Nurse specialist or Physician Histology Assistant who is working directly with them, had [...] program if appropriate HOME HEALTH CARE AGENCY: [facility]. PHONE: [phone] FAX: [phone] Start of care: Day after discharge (06-11-14) [...] [address] / [place] [address] All A agencies which cover the area of patient's residence have been reviewed, either verbally castro writing, and patient/family have chosen the home health care agency noted Questions: Responses: Agency name and contact information [facility] Patient location post discharge Sisters home What services are requested Physical Therapy Start date 06/11/2014 Responsible MD post discharge contact info PCP/Susan Jenkins Md [facility] Follow-Up: No future appointments. Primary Care Provider: IVANNA BARKLEY APRN [phone] Follow-up Recommendations for Providers: Please see discharge [...] was managed by the Urology Team at [facility]. If you have any questions or concerns, please feel free to contact us. Provider Contact Information: Urology Clinic: [facility] (after business hours): * Plan of Care [...] a strange gait pattern when ambulating with hospital slippersand FWW, lacking heel strike and not [...] 0 minutes JOSEFA DEXTER PT 06/09/2014 Pager: [phone] Physical Therapy Rehabilitation Department * Care Management [...] made. A copy will be sent to [facility] per his request. Patient to be disch arged later today. CANDIE CASTRO Surgery Chief Crna Pager [phone] * Plan of Care - Patti Paris [...] Office of Care Management (OCM) / Clinical Photographer'S Assistant (CRC) Initial Assessment Has the appropriate physician [...] ?? Has the physician, patient and/or patient support representative or other multidisciplinary team supervisor requested a care management consult? No (If patient does not need further evaluation based on screening then [facility]) Evaluation Introduced and reviewed the CRC role with patient and/or patient support representative. The following information has been gathered from this communication. Reason for Hospitalization/Current Status: RENAL MASS Procedure(s): @LAPAROSCOPY, RADICAL NEPHRECTOMY - left Permission given to speak with sister regarding status. Family/Social support: Single 64 year old residing in [place], [place] alone and is retired. Helists his sister Che and brother, Armond as contacts. He is independent in activities.He may go stay with her sister in [place], [place] in elderly housing and WC bound per RN report. Baseline Functional/Cognitive/Mobility Status: A&O x3, independent in mobility and self-care. (is it feasible for patient to return to previous environment with the same and/or additional resources and supports?) Yes, ? VNA Current Home/Community Services/Eqiupment: None PCP/Health Care Maintenance: IVANNA BARKLEY, TEMPLATE FITTER [phone] Advanced Directives: None on file and will provide a booklet for review and completion Insurance Coverage: [facility] Medication Coverage: Yes with co-pays Pharmacy: [facility] Financial Concerns: Not currently as is reitred and has health insurance INSPECTOR FLOOR Referral: No no needs identified at this time . Transportation at Discharge: States his brother will transport by private vehicle. Anticipated Continued Care Needs: Deciding on VNA services at his sisters home. F/u with surgery Plan (If plan is unknown delete the following section and utilize smart phrase [.cmplan] when information becomes available) Based on discussion with patient and/or patient support representative, physician and other multidisciplinary team members the following information has been gathered: Patient and/or patient support representative short term goal: Tolerate diet, pain controlled with oral medications, bowel function returned, mobility Patient and/or patient support representative half-way goal: Return home at prior level of function Patient and/or representatives preferences: Stay with his sister Anticipated discharge resources/services: To be determined.Family, ? VNA Anticipated social supports: Brother,sister, friends Anticipated cost of services: Costs related to SALES REPRESENTATIVE PUBLIC UTILITIES, DME, SNF/SWING/ACUTE/LTAC level or care, medications and/or transportation have been provided to the patient and/or patient support representative. .. Implementation (If plan is unknown delete the following section and utilize smart phrase [.cmimplementation] when information becomes available) Based on discussion with patient and/or patient support representative, physician, and other multidisciplinary teammembers the following information has been gathered/actions completed. For those being transferred/discharged to another facility, VNA, infusion company, DME, etc. Patient deciding on VNA or not Will offer choices in the [facility] area if desired. If Managed Medicare, need to make reasonable attempts, based on the information from the insurer, to limit those agencies/facilities in network. No The patient and/or patient support representative agrees with the reccommended plan. Deciding on VNA ?? Does patient, patient support representative and/or anticipated caregivers (whether at home, [...] services. Signature: Nicki Lao RN CRC Pager: [phone] * OR Attestation - Susan Jenkins MD - 06/07/2014 12:20 PM EDT Attestation: Case Date: 06/07/2014 I was present and I participated during the entire procedure (does not need to include opening and closing). SUSAN JENKINS MD 06/07/2014 * Op Note - Lata Agustin MD - 06/07/2014 11:42 AM EDT [facility] Operative Note Patient Name: Shree Ortez Jr. : [id number] MR#: [id number] Case Date: 06/07/2014 Surgeon: Surgeon(s) and Role: * Susan Jenkins MD - Primary * Lata Agustin MD - Resident-Surgeon Chief Preoperative diagnosis: RENAL MASS Postoperative diagnosis: RENAL MASS Procedure(s): @LAPAROSCOPY, RADICAL NEPHRECTOMY - left Anesthesia: General Estimated Blood Loss: 50cc Drains: grimaldo Disposition: [...] incision. The fascia was closed with interrupted [id number] 0 vicryl sutures. The skin incisions were closed with 4-0 monocryl suture. The patient was woken and bro ught to the PACU in stable condition. He tolerated the procedure well. * Brief Op Note - Lata Agustin MD - 06/07/2014 11:29 AM EDT Brief Operative Note Patient Name: Shree Ortez Jr. : [id number] MR#: [id number] Case Date: 06/07/2014 Surgeon: Surgeon(s) and Role: [...] pertinent to this patient.) * Miscellaneous - Usman Jameson - 06/07/2014 9:00 AM EDT documented in [...] intervals supplied above were not validated at [facility]. Results from pediatric patients should be interpreted [...] the following links into your internet browser. [email or web address] Blood specimen (specimen) 06/09/2014 5:58 AM EDT [...] intervals supplied above were not validated at [facility]. Results from pediatric patients should be interpreted [...] the following links into your internet browser. [email or web address] Blood specimen (specimen) 06/08/2014 4:24 AM EDT 06/08/2014 4:47 AM EDT Narrative Resulting Agency Comment Spec In Lab Susan Jenkins MD CHEMISTRY ORDERABLES [facility] * Surgical Pathology Report (06/07/2014 10:53 AM EDT) Final Diagnosis ? [facility] ? Provider: ?? SUSAN JENKINS ?Pt. Name: ?? BALJINDER GARCÍA, SHREE Aparicio ? Acc #: ?[id number] ?Pt. ? Col Date: ?? 06/07/2014 ? [...] Slides reviewed, microscopic description not recorded. ? [facility] ? Provider: ?? JACKSON, SUSAN Dale ?Pt. Name: ?? BALJINDER GARCÍA, SHREE Aparicio ? Acc #: ?[id number] ?Pt. ? Col Date: ?? 06/07/2014 ? /Sex: ?1950,(64 years),Male ? Rec Date: ?? 06/07/2014 ? LOC: ?4WST ? SURGICAL PATHOLOGY ? Whole slide scan: ? [id number] ? [id number] [id number] ? ---Gross Description--- ? A - [...] (9) tumor and adjacent parenchyma; (10) patient support representative upper pole ? parenchyma.; (11) hilar nodes. (R11) ??shb ? [facility] ? Provider: ?? SUSAN JENKINS ?Pt. Name: ?? BALJINDER GARCÍA, SHREE Aparicio ? Acc #: ?[id number] ?Pt. ? Col Date: ?? 06/07/2014 ? /Sex: ?1950,(64 years),Male ? Rec Date: ?? 06/07/2014 ? LOC: ?4WST ? SURGICAL PATHOLOGY ? ---Clinical Information--- ? Specimen Submitted: ? A - Left kidney ? Clinical History: ? Renal mass ? Clinical Diagnosis: ? Same 06/10/2014 8:47 AM EDT [facility] SPECIMEN FROM KIDNEY / Unknown 06/07/2014 10:53 AM EDT 06/07/2014 10:53 AM EDT Susan Jenkins MD PATHOLOGY/CYTOLOGY O RDERABRIGID Performing Organization Address City/State/[facility] Co la Phone Number [facility] [address] * Specimen to Pathology (surgical or derm) (06/07/2014 10:42 AM EDT) AP Specimen 06/07/2014 10:4 2 AM EDT 06/07/2014 10:42 AM EDT Narrative [facility] - 06/07/2014 10:42 AM EDT Specimen requisition ordered. ??Separate Pathology report to follow Susan Jenkins MD PATHOLOGY/CYTOLOGY O RDELEAZAR [facility] documented in this encounter Visit Diagnoses Diagnosis S/p nephrectomy Acquired absence of kidney documented in this encounter Administered Medications Inactive Administered Medications - up to 3 most recent administrations Medication Order MAR Action Action Date Dose Rate Site acetaminophen (TYLENOL) tablet 1,000 mg 1,000 mg, Oral, EVERY 6 HOURS PRN, Starting on Fri06/07/14 at 1231, Until Fri06/08/14 at 1348, Pain, Fever, Maximum dose of acetaminophen is 4000 mg from all sources in 24 hours., Routine Given 06/08/2014 1:07 PM EDT 1,000 mg Given 06/08/2014 5:35 AM EDT 1,000 mg Given 06/07/2014 9:50 PM EDT 1,000 mg acetaminophen (TYLENOL) tablet 1,000 mg 1,000 mg, Oral, EVERY 6 HOURS, First dose (after last modification) on Fri06/08/14 at 1900, Until Discontinued, Maximum dose of acetaminophen is 4000 mg from all sources in 24 hours., Routine Given 06/10/2014 12:37 PM EDT 1,000 mg Given 06/10/2014 6:36 AM EDT 1,000 mg Given 06/09/2014 6:20 PM EDT 1,000 mg bisacodyl (DULCOLAX) suppository 10 mg 10 mg, Rectal, DAILY PRN, Starting on Fri06/07/14 at 1404, Until Fri06/10/14 at 0833, Constipation, Routine Given 06/08/2014 12:52 PM EDT 10 mg bisacodyl (DULCOLAX) suppository 10 mg 10 mg, Rectal, ONCE, 1 dose, On Fri06/10/14 at 0930, Routine Given 06/10/2014 9:54 AM EDT 10 mg dextrose 5% and sodium chloride 0.45% infusion 75 mL/hr, Intravenous, CONTINUOUS, Starting on Natty 06/09/14 at 1445, Until Fri06/10/14 at 1643 New Bag 06/10/2014 3:54 AM EDT 75 mL/hr 75 mL/hr New Bag 06/09/2014 2:47 PM EDT 75 mL/hr 75 mL/hr docusate sodium (COLACE) capsule 100 mg 100 mg, Oral, 2 TIMES DAILY, First dose on Fri06/07/14 at 2100, Until Discontinued, Routine Given 06/10/2014 8:10 AM EDT 100 mg Given 06/09/2014 9:17 PM EDT 100 mg Given 06/09/2014 8:11 AM EDT 100 mg heparin (porcine) subcutaneous injection 5,000 Units 5,000 Units, Subcutaneous, EVERY 8 HOURS SCHEDULED, First dose on Fri06/07/14 at 1500, Until Discontinued, Routine Given 06/07/2014 5:12 PM EDT 5,000 Unit s heparin (porcine) subcutaneous injection 5,000 Units 5,000 Units, Subcutaneous, EVERY 8 HOURS SCHEDULED, First dose (after last reorder) on Fri06/08/14 at 0500, Until Discontinued, Routine Given 06/10/2014 6:36 AM EDT 5,000 Units Given 06/09/2014 9:18 PM EDT 5,000 Units Given 06/09/2014 1:49 PM EDT 5,000 Units HYDROmorphone (DILAUDID) 0.2 mg/mL 10mL Syringe 0.2-0.4 mg, Intravenous, EVERY 5 MIN PRN, Pain, Starting on Fri06/07/14 at 1100, Until Fri06/07/14 at 1320, For moderate pain give: 0.2 mg every 5 minute prn For severe pain give: 0.4 mg every 5 minutes prn Maximum dose: 4 mg per hour Hold for respiratory rate less than 10 per minute., PACU Recovery Given 06/07/2014 12:2 8 PM EDT 0.4 mg Given 06/07/2014 12:22 PM EDT 0.4 mg Given 06/07/2014 12:17 PM EDT 0.4 mg lactated ringers infusion 1,000 mL 1,000 mL, at 100 mL/hr, Intravenous, CONTINUOUS, Starting on Fri06/07/14 at 0645, Until Fri06/07/14 at 1135, Day of Surgery (Day of Procedure) New Bag 06/07/2014 8:54 AM EDT mL New Bag 06/07/2014 6:45 AM EDT 1,000 mLs 100 mL/hr lactated ringers infusion 100 mL/hr, Intravenous, CONTINUOUS, Starting on Fri06/07/14 at 1200, Until Natty 06/09/14 at 1124, Recovery (Recovery-Hospital Unit) New Bag 06/09/2014 2:50 AM EDT 100 mL/hr 100 mL /hr New Bag 06/08/2014 5:33 PM EDT 100 mL/hr 100 mL/hr New Bag 06/08/2014 7:33 AM EDT 100 mL/hr 100 mL/hr morphine 2 mg/mL carpuject 1-2 mg 1-2 mg, Intravenous, EVERY 1 HOUR PRN, Starting on Fri06/07/14 at 1404, Until Natty 06/09/14 at 1124, Pain, for SEVERE pain, May repeat once in 30 minutes if pain not relieved., Routine Given 06/08/2014 9:35 PM EDT 2 mg Given 06/08/2014 6:46 PM EDT 1 mg ondansetron (ZOFRAN) injection 4 mg 4 mg, Intravenous, EVERY 8 HOURS PRN, Starting on Fri06/07/14 at 1404, Until Fri06/10/14 at 1643, Nausea, May repeat times one in 30 minutes if ineffective, Recovery (Recovery-Hospital Unit) Given 06/09/2014 12:37 PM EDT 4 mg Given 06/08/2014 12:39 PM EDT 4 mg ondansetron (ZOFRAN) injection 4 mg 4 mg, Intravenous, ONCE, 1 dose, On Fri06/08/14 at 1745 Given 06/08/2014 5:31 PM EDT 4 mg oxyCODONE (ROXICODONE) immediate release tablet 5-10 mg 5-10 mg, Oral, EVERY 4 HOURS PRN, Starting on Fri06/07/14 at 1134, Until Fri06/07/14 at 1431, Pain, May repeat 5 mg in 60 minutes if pain not relieved., Routine Given 06/07/2014 2:11 PM EDT 5 mg Given 06/07/2014 1:18 PM EDT 5 mg oxyCODONE (ROXICODONE) immediate release tablet 5-15 mg 5-15 mg, Oral, EVERY 4 HOURS PRN, Starting on Fri06/07/14 at 1430, Until Fri06/10/14 at 1643, Pain, May repeat 5 mg in 60 minutes if pain not relieved., Routine Given 06/09/2014 6:21 PM EDT 5 mg Given 06/09/2014 6:51 AM EDT 15 mg Given 06/09/2014 2:48 AM EDT 15 mg prochlorperazine (COMPAZINE) injection 10 mg 10 mg, Intravenous, EVERY 6 HOURS PRN, Starting on Fri06/07/14 at 1404, Until Fri06/10/14 at 1643, Nausea, Vomiting, If multiple antiemetics are ordered, use ondansetron first. If ondansetron ineffective use prochlorperazine. , Recovery (Recovery-Hospital Unit), Routine Given 06/09/2014 1:39 PM EDT 1 0 mg prochlorperazine (COMPAZINE) tablet 10 mg 10 mg, Oral, EVERY 6 HOURS PRN, Starting on Fri06/07/14 at 1404, Until Fri06/10/14 at 1643, Nausea, Vomiting, If multiple antiemetics are ordered, use ondansetron first. If ondansetron ineffective use prochlorperazine. PO Preferred. If patient unable to take PO, may give IV if ordered., Recovery (Recovery-Hospital Unit), Routine Given 06/08/2014 6:46 PM EDT 10 mg promethazine (PHENERGAN) injection 6.25 mg 6.25 mg, Intravenous, ONCE PRN, Nausea, Starting on Fri06/07/14 at 1100, 1 dose, Until Fri06/07/14 at 1148, Dilute in 20 mL sodium chloride 0.9% and administer through a free flowing IV. Usual dose range 0.25-0.5 mg/kg/dose to a maximum of 25 mg/dose, PACU Recovery Given 06/07/2014 11:48 AM EDT 6.25 mg sodium chloride 0.9 % flush 5 mL 5 mL, Intravenous, EVERY 12 HOURS, First dose on Fri06/07/14 at 0645, Until Discontinued, Day of Surgery (Day of Procedure), Routine Given 06/07/2014 6:45 AM EDT 5 mLs sodium chloride 0.9 % flush 5 mL 5 mL, Intravenous, 2 TIMES DAILY, First dose on Fri06/07/14 at 1430, Until Discontinued, Recovery (Recovery-Hospital Unit), Routine Given 06/09/2014 9:18 PM EDT 5 mLs Given 06/09/2014 8:12 AM EDT 5 mLs Given 06/08/2014 9:00 AM EDT 5 mLs terazosin (HYTRIN) capsule 1 mg 1 mg, Oral, NIGHTLY, First dose on Fri06/07/14 at 2100, Until Discontinued, Routine Given 06/09/2014 9:18 PM EDT 1 mg Given 06/08/2014 11:33 PM EDT 1 mg Given 06/07/2014 9:46 PM EDT 1 mg documented in this [...] Patti Paris, DEANNA)2117 (Given - Provider: Lamar Jose, DEANNA) 0810 (Given - Provider: Janet Marin, DEANNA) [...] met) 0812 (Given - Provider: Patti Paris RN)2118 (Given - Provider: Lamar Jose RN) 0900 (Not Given - Provider: Janet Marin, DEANNA - Reason: See comment - Comment: IVF infusing) terazosin (HYTRIN) capsule 1 mg (CANCELED) 1 mg, Oral, NIGHTLY, First dose on Fri06/07/14 at 2100, Until Discontinued, Routine 2333 (Given - Provider: Ana Marrero RN) 211 (Given - Provider: Lamar Jose RN) Continuous Medication Order 06/08/2014 06/09/2014 06/10/2014 dextrose 5% and sodium chloride 0.45% infusion (CANCELED) 75 mL/hr, Intravenous, CONTINUOUS, Starting on Natty 06/09/14 at 1445, Until Fri06/10/14 at 1643 1447 (New Bag - Provider: Patti Paris, RN) 0354 (New Bag - Provider: Lamar Jose RN)1237 (Stopped - Provider: Janet Marin, DEANNA) lactated ringers infusion (CANCELED) 100 mL/hr, Intravenous, CONTINUOUS, Starting on Fri06/07/14 at 1200, Until Natty 06/09/14 at 1124, Recovery (Recovery-Hospital Unit) 0733 (New Bag - Provider: Patti Paris, RN)1733 (New Bag - Provider: Patti Paris, DEANNA) 0250 (New Bag - Provider: Ana Marrero, DEANNA) PRN Medication Order 06/08/2014 06/09/2014 06/10/2014 acetaminophen (TYLENOL) tablet 1,000 mg (CANCELED) 1,000 mg, Oral, EVERY 6 HOURS PRN, Starting on Fri06/07/14 at 1231, Until Fri06/08/14 at 1348, Pain, Fever, Maximum dose of acetaminophen is 4000 mg from all sources in 24 hours., Routine 0535 (Given - Provider: Ana Marrero, DEANNA)1307 (Given - Provider: Patti Paris, DEANNA) bisacodyl [...] relieved., Routine 1846 (Given - Provider: Patti Paris, DEANNA)2135 (Given - Provider: Ana Marrero, DEANNA) ondansetron (ZOFRAN) injection 4 mg (CANCELED)(Linked Group 1) 4 mg, Intravenous, EVERY 8 HOURS PRN, Starting on Fri06/07/14 at 1404, Until Fri06/10/14 at 1643, Nausea, May repeat times one in 30 minutes if ineffective, Recovery (Recovery-Hospital Unit) 1239 (Given - Provider: Patti Paris, DEANNA) 1237 (Given - Provider: Patti Paris, RN) [...] Routine 1239 (See Alternative - Provider: Patti Paris, DEANNA) 1237 (See Alternative - Provider: Patti Paris, DEANNA) oxyCODONE (ROXICODONE) immediate release tablet 5-15 mg 5-15 mg, Oral, EVERY 4 HOURS PRN, Starting on Fri06/07/14 at 1430, Until Fri06/10/14 at 1643, Pain, May repeat 5 mg in 60 minutes if pain not relieved., Routine 0535 (Given - Provider: Ana Marrero RN)1248 (Given - Provider: Patti Paris, DEANNA)1730 (Given - Provider: Patti Paris, DEANNA)1950 (Given - Provider: Ana Marrero RN - Comment: per MD-nursing communication) 0248 (Given - Provider: Ana Marrero, RN)0651 (Given - Provider: Ana Marrero, RN)1821 [...] Paris RN) 1339 (Given - Provider: Patti Paris, DEANNA) prochlorperazine (COMPAZINE) tablet 10 mg (CANCELED)(Linked Group 2) 10 mg, Oral, EVERY 6 HOURS PRN, Starting on Fri06/07/14 at 1404, Until Fri06/10/14 at 1643, Nausea, Vomiting, If multiple antiemetics are ordered, use ondansetron first. If ondansetron ineffective use prochlorperazine. PO Preferred. If patient unable to take PO, may give IV if ordered., Recovery (Recovery-Hospital Unit), Routine 184 (Given - Provider: Patti Paris, DEANNA) 1339 (See Alternative - Provider: Patti Paris, DEANNA) Linked Groups Order Group 1: ondansetron (ZOFRAN) [...] Routine documented in this encounter Care Teams Clinical Operations Leader Relationship Specialty Start Date End Date Ivanna Barkley APRN PCP - General 05/19/11 09/10/15 documented as of this encounter
--- OUTSIDE RECORDS SUMMARY | 2024-07-19 16:50 | XMS_ITS | Encounter Summary ---
Author Organization [facility] Address [facility] [place] [address] Care Team Providers Care Wastewater Treatment Operator Name Role Phone Ivanna Hughes APRN Primary Care Provider +1- [phone] Encounter Details Date Type Department Care Team (Latest Contact Info) Description 12/15/2014 9:42 AM EDT - 12/15/2014 10:09 AM EDT Hospital [place]Ray [place] [address] [place] [address] History of kidney cancer Social History Tobacco [...] Comments XR CHEST PA AND LATERAL Routine 12/15/2014 9:55 AM EDT History of kidney cancer documented in this encounter Results * XR chest routine PA & lateral (12/15/2014 9:55 AM EDT) Anatomical Region Laterality Modality Chest N/A Radiographic Laura ging 12/15/2014 9:55 AM EDT Impressions 12/15/2014 10:06 AM EDT IMPRESSION: No evidence of metastatic disease or other significant abnormality Narrative 12/15/2014 10:06 AM EDT EXAMINATION: CHEST ROUTINE PA+LAT CLINICAL HISTORY: RCC surveillance TECHNIQUE: Standing PA and lateral chest COMPARISON: PA and lateral chest 04/28/[address] 06/03/2014 FINDINGS: The previously seen faint subcentimeter nodular opacity overlying the right lower lung zone is unchanged. However, this was not a pulmonary nodule by chest CT. The lungs are otherwise clear. The cardial mediastinal silhouette and kalpana appear normal. No pleural effusion or significant bone abnormality is seen. Procedure Note Cedric Alonso MD - 12/15/2014 EXAMINATION: CHEST ROUTINE PA+LAT CLINICAL HISTORY: RCC surveillance TECHNIQUE: Standing PA and lateral chest COMPARISON: PA and lateral chest 04/28/[address] 06/03/2014 FINDINGS: The previously seen faint subcentimeter nodular opacity overlying theright lower lung zone is unchanged. However, this was not a pulmonary nodule bychest CT. The lungs are otherwise clear. The cardial mediastinal silhouette andhila appear normal. No pleural effusion or significant bone abnormality isseen. IMPRESSION IMPRESSION: No evidence of metastatic disease or other significant abnormality Jarocho Jenkins MD IMG DX ORDERABLES documented in this encounter Visit Diagnoses Diagnosis History of kidney cancer Personal history of malignant neoplasm of kidney documented in this encounter Care Teams Wastewater Treatment Operator Relationship Specialty Start Date End Date Ivanna Hughes, LEAD RECOVERER PCP - General 05/19/11 09/10/15 documented as of this encounter
--- OUTSIDE RECORDS SUMMARY | 2024-07-19 16:50 | XMS_ITS | Encounter Summary ---
[place] [address] Care Team Providers Care Skoog Operator Name Role Phone Ivanna Hughes APRN Primary Care Provider +1- [phone] Encounter Details Date Type Department Care Team (Late st Contact Info) Description 06/03/2014 6:30 AM EDT - 06/03/2014 9:43 AM EDT Hospital En[place] [phone] Renal mass Social History Tobacco Use Types Packs/Day Years [...] Name Priority Date/Time Associated Diagnosis Comments NM INJECTION Routine 06/03/2014 7:00 AM EDT documented in this encounter Results * NM injection (06/03/2014 7:00 AM EDT) Anatomical Region Laterality Modality Other 06/03/2014 7:00 AM EDT Narrative 06/03/2014 7:00 AM EDT This is a Non-reportable exam Procedure Note 06/03/2014 This is a Non-reportable exam Jarocho Jenkins MD IMG REPORTABLE ONLY documented in this encounter Visit Diagnoses Diagnosis Renal mass Unspecified disorder of kidney and ureter documented in this encounter Care Teams Skoog Operator Relationship Specialty Start Date End Date Ivanna Hughes APRN PCP - General 05/19/11 09/10/15 documented as of this encounter
--- OUTSIDE RECORDS SUMMARY | 2024-07-19 16:50 | XMS_ITS | Encounter Summary ---
Author Organization [facility] [place] [address] Care Team Providers Care Compliance Consultant Name Role Phone Ivanna Hughes APRN Primary Care Provider +1- [phone] Encounter Details Date Type Department Care Team (Late st Contact Info) Description 01/17/2015 [place] [phone] Jarocho Jenkins MD [address] [place] [address] Social History Tobacco Use Types Packs/Day Years [...] Telephone Encounter - Rebecca Kathleen - 05/02/2015 4:31 PM EDT . documented in this encounter Plan of Treatment Scheduled Procedures Name Priority Associated Diagnoses Date/Ti me EGD, UPPER GI ENDOSCOPY (WRV U 2.09) Esophageal dysphagia Encounter for colorectal cancer screening COLONOSCOPY, DIAGNOSTIC (WRV U 3.26) Esophageal dysphagia Encounter for colorectal cancer screening documented as of this encounter Visit Diagnoses Not on filedocumented in this encounter Care Teams Compliance Consultant Relationship Specialty Start Date End Date Ivanna Hughes APRN PCP - General 05/19/11 09/10/15 documented as of this encounter
--- OUTSIDE RECORDS SUMMARY | 2024-07-19 16:50 | XMS_ITS | Encounter Summary ---
[facility] [place] [address] Care Team Providers Care Band Sawing Machine Operator Name Role Phone Ivanna Hughes APRN Primary Care Provider +1- [phone] Encounter Details Date Type Department Care Team (Late st Contact Info) Description 06/16/2014 2:40 PM EDT [place] [phone] Jarocho Paz MD [address] [place] [address] History of kidney cancer (Primary Dx) Discharge Disposition: Home Social History Tobacco Use [...] Sign Reading Time Taken Comments Blood Pressure 154/92 06/16/2014 2:04 PM EDT Pulse 77 06/16/2014 2:04 PM EDT Temperature - - Respiratory Rate 16 06/16/2014 2:04 PM EDT Oxygen Saturation - - Inhaled Oxygen Concentration - - Weight 97.1 kg (214 lb) 06/16/2014 2:04 PM EDT Height 172.7 cm (5' 8) 06/16/2014 2:04 PM EDT Body Mass Index 32.54 06/16/2014 2:04 PM EDT documented in this encounter Progress Notes * Jarocho Paz MD - 06/16/2014 2:06 PM EDT Mr. Ortez is a pleasant 64 year old man with a history of a left renal mass who presents for f/u. His mass was found incidentally during a workup for an inguinal hernia. He was found to have 5cm endophytic enhancing left renal mass suspicious for RCC. His staging exams were normal. He underwent a laparoscopic radical nephrectomy 1 week ago. This was well tolerated. Path revealed a pT3aNx ccRCC with negative [...] (cannot be assessed or not applicable) He feels well. Voiding well. Moving his bowels. Pain improved. Exam: S NTND No CVAT Incisions healing well A: pT3a ccRCC s/p lap nephrectomy, doing well Left inguinal hernia P: We reviewed his pathology in detail. We discussed that there are no current data supporting adjuvant therapy for RCC, however there are clinical trials i.e. the EVEREST that would be an option as he has T3 disease. I offered to schedule him with Dr. Tapia to discuss this in more detail. He declines at this time. For surveillance, I recommended a CT w/ w/o contrast, CXR and CMP in 6 months. He agrees and we will schedule. Regarding his hernia, we had originally hoped to do this as a joint procedure with his nephrectomy,however this was logistically prohibitive. I will send this note to Dr. Rivas, and Mr. Ortez is cleared for hernia surgery whenever would be convenient from this point forward. He states that he maywait until the Spring for repair at this point. His questions were answered in detail. documented in this encounter Miscellaneous Notes * Addendum Note - Carley Parsons LPN - 06/16/2014 2:57 PM EDTAddended by: CARLEY PARSONS on: 06/16/2014 02:57 PM Modules accepted: Orders documented in this encounter Plan of Treatment Scheduled Procedures Name Priority Associated Diagnoses Date/Ti me EGD, UPPER GI ENDOSCOPY (WRV U 2.09) Esophageal dysphagia Encounter for colorectal cancer screening COLONOSCOPY, DIAGNOSTIC (WRV U 3.26) Esophageal dysphagia Encounter for colorectal cancer screening documented as of this encounter Procedures Procedure Name Priority Date/Time Associated Diagnosis Comments URINE CULTURE Routine 06/16/2014 2:57 PM EDT History of kidney cancer documented in this encounter Results * (ABNORMAL) Comprehensive metabolic panel (non-fasting) (12/15/2014 10:00 AM EDT) Glucose 99 60 - 199 mg/dL CERNER MILLENNIUM Comment:Diabetes: >=200 mg/d L plus symptoms Blood Urea Nitrogen 25(H) 10 - 20 mg/dL CERNER MILLENNIUM Creatinine 1.56(H) 0.80 - 1.50 mg/dL CERNER MILLENNIUM Comment: Please note that the pediatric reference intervals supplied above were not validated at [facility]. Results from pediatric patients should be interpreted in conjunction to the patient's age, height and muscle mass. Sodium 144 135 - 145 mmol/L CERNER MILLENNIUM Potassium 4.7 3.5 - 5.0 mmol/L CERNER MILLENNIUM Comment: Please note: ??Patients with WBC >100,000 may have falsely elevated Potassium levels. ??For accurate Potassium quantification in these patients send serum separator tube (gold top) for subsequent determinations. ??Contact the Clinical Chemistry Laboratory if there are any questions. Chloride 105 98 - 107 mmol/L CERNER MILLENNIUM Carbon Dioxide 26 22 - 31 mmol/L CERNER MILLENNIUM Anion Gap 13 5 - 15 mmol/L CERNER MILLENNIUM Calcium 9.0 8.5 - 10.5 mg/dL CERNER MILLENNIUM Protein, Total 7.0 6.1 - 8.0 gm/dL CERNER MILLENNIUM Albumin 4.2 3.2 - 5.2 gm/dL CERNER MILLENNIUM Aspartate Aminotransferase 24 0 - 39 unit/L CERNER MILLENNIUM Alanine Aminotransferase 33 0 - 55 unit/L CERNER MILLENNIUM Alkaline Phosphatase 119 40 - 120 unit/L CERNER MILLENNIUM Bilirubin, Total 0.4 0.2 - 1.3 mg/dL CERNER MILLENNIUM Bilirubin, Direct 0.1 0.0 - 0.3 mg/dL CERNER MILLENNIUM Est Glomerular Filtration Rate 45(L) >=60 CERNER MILLENNIUM Comment: This estimated GFR [...] the following links into your internet browser. [email or web address] Blood specimen (specimen) 12/15/2014 10:00 AM EDT 12/15/2014 10:14 AM EDT Narrative Resulting Agency Comment Spec In Lab Jarocho Paz MD CHEMISTRY ORDERABLES CERNER MILLENNIUM * XR chest routine PA & lateral [...] metastatic disease or other significant abnormality Jarocho Paz MD IMG DX ORDERABLES * Urine culture Clean Catch Urine (06/16/2014 2:57 PM EDT) Urine Culture ? Patient Name: SHREE ORTEZ JR ? Ordered By: JAROCHO PAZ ? MR#: [id number] ?LOC: ??5B ? /Sex: ??1950 (64 years), ? Male ? PROCEDURE: Urine Culture ?SOURCE: U CC ? COLLECTED: 06/16/2014 14:57 ? STARTED: 06/16/2014 16:58 ? FINAL REPORT ? Final Report ? Verified:2013 15:12 ? 1,000-9,000 cfu/ml Gram Positive organisms , probable contaminant ? [facility] Urine specimen obtained by clean catch procedure (specimen) 06/16/2014 2:57 PM EDT 06/16/2014 4:58 PM EDT Narrative Resulting Agency Comment Spec In Lab Jarocho Paz MD MICROBIOLOGY - GENER AL ORDERABLES [facility] documented in this encounter Visit Diagnoses Diagnosis History of kidney cancer- Primary Personal history of malignant neoplasm of kidney History of kidney cancer Personal history of malignant neoplasm of kidney documented in this encounter Care Teams Band Sawing Machine Operator Relationship Specialty Start Date End Date Ivanna Hughes APRN PCP - General 05/19/11 09/10/15 documented as of this encounter
--- OUTSIDE RECORDS SUMMARY | 2024-07-19 16:50 | XMS_ITS | Encounter Summary ---
Author Organization [facility] [place] [address] Care Team Providers Care Biomedical Photographer Name Role Phone Ivanna Hughes APRN Primary Care Provider +1- [phone] Encounter Details Date Type Department Care Team (Late st Contact Info) Description 12/15/2014 1:00 PM EDT Follow-Up Urology at [facility] [place] [place] [phone] Jarocho Jenkins MD [address] [place] [address] History of kidney cancer Discharge Disposition: Home [...] Sign Reading Time Taken Comments Blood Pressure 155/109 12/15/2014 1:02 PM EDT Pulse 70 12/15/2014 1:02 PM EDT Temperature - - Respiratory Rate - - Oxygen Saturation 98% 12/15/2014 1:02 PM EDT Inhaled Oxygen Concentration - - Weight 90.7 kg (200 lb) 12/15/2014 1:02 PM EDT Height 171.5 cm (5' 7.5) 12/15/2014 1:02 PM EDT Body Mass Index 30.86 12/15/2014 1:02 PM EDT documented in this encounter Progress Notes * Jarocho Jenkins MD - 12/15/2014 1:22 PM EDT Neelima is a pleasant 64 year old man with a history of a left renal mass who presents for f/u. His mass was found incidentally during a workup for an inguinal hernia. He was found to have 5cm endophytic enhancing left renal mass suspicious for RCC. His staging exams were normal. He underwent a laparoscopic radical nephrectomy 6 months ago. This was well tolerated. Path revealed [...] Voiding well. Moving his bowels. Pain improved. CT today shows no local recurrence or mets, though read pending; CXR neg, CMP wnl (Cr 1.5, stable). Exam: S NTND No CVAT Incisions healed A: pT3a ccRCC s/p lap nephrectomy, doing well P: RTC 6 mo w/ CT, CXR, CMP The importance of surveillance was emphasized His questions were answered in detail; 16 [...] Associated Diagnosis Comments COMPREHENSIVE METABOLIC PANEL STAT 12/15/2014 10:00 AM EDT History of kidney cancer documented [...] PM Jarocho Jenkins MD IMG CT ORDERABLES * (ABNORMAL) Comprehensive metabolic panel (non-fasting) (09/11/2015 12:53 PM EST) Glucose 127 65 - 199 mg/dL CERNER MILLENNIUM Comment:Diabetes: >=200 mg/d L plus symptoms Blood Urea Nitrogen 26(H) 10 - 20 mg/dL CERNER MILLENNIUM Creatinine 1.61(H) 0.80 - 1.50 mg/dL CERNER MILLENNIUM Comment: Please note that the pediatric reference intervals supplied above were not validated at [facility]. Results from pediatric patients should be interpreted in conjunction to the patient's age, height and muscle mass. Sodium 139 135 - 145 mmol/L CERNER MILLENNIUM Potassium 4.6 3.5 - 5.0 mmol/L CERNER MILLENNIUM Comment: Please note: ??Patients with WBC >100,000 may have falsely elevated Potassium levels. ??For accurate Potassium quantification in these patients send serum separator tube (gold top) for subsequent determinations. ??Contact the Clinical Chemistry Laboratory if there are any questions. Chloride 102 98 - 107 mmol/L CERNER MILLENNIUM Carbon Dioxide 25 22 - 31 mmol/L CERNER MILLENNIUM Anion Gap 12 5 - 15 mmol/L CERNER MILLENNIUM Calcium 9.0 8.5 - 10.5 mg/dL CERNER MILLENNIUM Protein, Total 7.1 6.1 - 8.0 gm/dL CERNER MILLENNIUM Albumin 4.0 3.2 - 5.2 gm/dL CERNER MILLENNIUM Aspartate Aminotransferase 28 0 - 39 unit/L CERNER MILLENNIUM Alanine Aminotransferase 42 0 - 55 unit/L CERNER MILLENNIUM Alkaline Phosphatase 129(H) 40 - 120 unit/L CERNER MILLENNIUM Bilirubin, Total 0.3 0.2 - 1.3 mg/dL CERNER MILLENNIUM Bilirubin, [...] the following links into your internet browser. [email or web address] Blood specimen (specimen) 09/11/2015 12:53 PM EST 09/11/2015 12:58 PM EST Narrative Resulting Agency Comment Spec In Lab Jarocho Jenkins MD CHEMISTRY ORDERABLES [facility] * (ABNORMAL) Comprehensive metabolic panel (non-fasting) (12/15/2014 10:00 AM EDT) [facility] Glucose 99 60 - 199 mg/dL CERNER MILLENNIUM Comment:Diabetes: >=200 mg/d L plus symptoms Blood Urea Nitrogen 25(H) 10 - 20 mg/dL CERNER MILLENNIUM Creatinine 1.56(H) 0.80 - 1.50 mg/dL CERNER MILLENNIUM Comment: Please note that the pediatric reference intervals supplied above were not validated at [facility]. Results from pediatric patients should be interpreted [...] the following links into your internet browser. [email or web address] Blood specimen (specimen) 12/15/2014 10:00 AM EDT 12/15/2014 10:14 AM EDT Narrative Resulting Agency Comment Spec In Lab Jarocho Jenkins MD CHEMISTRY ORDERABLES CERNER MILLENNIUM documented in this encounter Visit Diagnoses Diagnosis History of kidney cancer Personal history of malignant neoplasm of kidney History of kidney cancer Personal history of malignant neoplasm of kidney documented in this encounter Care Teams Biomedical Photographer Relationship Specialty Start Date End Date Ivanna Hughes APRN PCP - General 05/19/11 09/10/15 documented as of this encounter
--- OUTSIDE RECORDS SUMMARY | 2024-07-19 16:50 | XMS_ITS | Encounter Summary ---
Author Organization [facility] [place] [address] Care Team Providers Care Jewelry Department Supervisor Name Role Phone Ivanna Hughes APRN Primary Care Provider +1- [phone] Encounter Details Date Type Department Care Team (Late st Contact Info) Description 12/22/2014 [place] [phone] Jarocho Jenkins MD [address] [place] [address] Social History Tobacco Use Types Packs/Day Years [...] Telephone Encounter - Rebecca Kathleen - 05/02/2015 3:41 PM EDT . documented in this encounter Plan of Treatment Scheduled Procedures Name Priority Associated Diagnoses Date/Ti me EGD, UPPER GI ENDOSCOPY (WRV U 2.09) Esophageal dysphagia Encounter for colorectal cancer screening COLONOSCOPY, DIAGNOSTIC (WRV U 3.26) Esophageal dysphagia Encounter for colorectal cancer screening documented as of this encounter Visit Diagnoses Not on filedocumented in this encounter Care Teams Jewelry Department Supervisor Relationship Specialty Start Date End Date Ivanna Hughes APRN PCP - General 05/19/11 09/10/15 documented as of this encounter
--- OUTSIDE RECORDS SUMMARY | 2024-07-19 16:50 | XMS_ITS | Encounter Summary ---
Author Organization [facility] [place] [address] Care Team Providers Care Court Collections Officer Name Role Phone Ivanna Hughes APRN Primary Care Provider +1- [phone] Encounter Details Date Type Department Care Team (Late st Contact Info) Description 03/03/2015 Tele[place] [phone] Jarocho Jenkins MD [address] [place] [address] Social History Tobacco Use Types Packs/Day Years [...] Telephone Encounter - Rebecca Kathleen - 05/02/2015 3:18 PM EDT . documented in this encounter Plan of Treatment Scheduled Procedures Name Priority Associated Diagnoses Date/Ti me EGD, UPPER GI ENDOSCOPY (WRV U 2.09) Esophageal dysphagia Encounter for colorectal cancer screening COLONOSCOPY, DIAGNOSTIC (WRV U 3.26) Esophageal dysphagia Encounter for colorectal cancer screening documented as of this encounter Visit Diagnoses Not on filedocumented in this encounter Care Teams Court Collections Officer Relationship Specialty Start Date End Date Ivanna Hughes APRN PCP - General 05/19/11 09/10/15 documented as of this encounter
--- OUTSIDE RECORDS SUMMARY | 2024-07-19 16:50 | XMS_ITS | Encounter Summary ---
Author Organization [facility] [place] [address] Care Team Providers Care Steel Die Press Set Up Operator Name Role Phone Ivanna Hughes APRN Primary Care Provider +1- [phone] Encounter Details Date Type Department Care Team (Latest Contact Info) Description 12/16/2014 2:00 PM EDT Procedure [place] [address] CLINIC, Lelo Modi, RN Dysphagia Discharge Disposition: Home Social History Tobacco Use [...] as of this encounter Progress Notes * Lelo De Anda, RN - 12/16/2014 2:15 PM EDT HROEM performed without difficulty and was well tolerated. documented in this encounter Plan of Treatment Scheduled Procedures Name Priority Associated Diagnoses Date/Ti me EGD, UPPER GI ENDOSCOPY (WRV U 2.09) Esophageal dysphagia Encounter for colorectal cancer screening COLONOSCOPY, DIAGNOSTIC (WRV U 3.26) Esophageal dysphagia Encounter for colorectal cancer screening documented as of this encounter Visit Diagnoses Diagnosis Dysphagia Dysphagia, unspecified documented in this encounter Care Teams Steel Die Press Set Up Operator Relationship Specialty Start Date End Date Ivanna Hughes APRN PCP - General 05/19/11 09/10/15 documented as of this encounter
--- OUTSIDE RECORDS SUMMARY | 2024-07-19 16:50 | XMS_ITS | Encounter Summary ---
Author Organization [facility] Address [facility] [place] [address] Care Team Providers Care Wheel Truer Name Role Phone Ivanna Hughes APRN Primary Care Provider +1- [phone] Reason for Visit * Reason Comments Inguinal Hernia Encounter Details Date Type Department Care Team (Late st Contact Info) Description 05/15/2015 2:45 PM EDT Follow-Up General Surgery at [facility] [place] [address] Flash Rivas MD [facility] [place] [address] Left inguinal hernia Discharge Disposition: Home Social History Tobacco Use [...] Sign Reading Time Taken Comments Blood Pressure 152/96 05/15/2015 2:19 PM EDT Pulse 89 05/15/2015 2:19 PM EDT Temperature - - Respiratory Rate 16 05/15/2015 2:19 PM EDT Oxygen Saturation 99% 05/15/2015 2:19 PM EDT Inhaled Oxygen Concentration - - Weight 96.7 kg (213 lb 3.2 oz) 05/15/2015 2:19 P M EDT Height - - Body Mass Index 32.9 01/18/2015 8:29 AM EDT documented in this encounter Progress Notes * Flash Rivas MD - 05/15/2015 2:55 PM EDT Mr. Ortez returns to clinic today. Since last seen, he underwent a laparoscopic assisted left nephrectomy for RCC. He did quite well. He desires re-evaluation at this point for left inguinal hernia.He reports his left groin continues to intermittently cause some discomfort and it seems larger since last seen. On exam, Abdomen soft, NT/ND, well-healed trocar incisions. Left groin with small, reducible inguinal hernia. Right groin within normal limits. CT scan from 2013 demonstrated small fat-containing inguinal hernia. Assessment/Plan: Mr. Ortez is a 64 year old male with a symptomatic left inguinal hernia, reducible. We discussed the risks and benefits of open repair with mesh including risks of bleeding, infection, hernia recurrence, postoperative discomfort. Overall, he appears to understand these risks and wi shes to proceed. We will schedule this here at [facility] in the near future, likely mid-June at his request. documented in this encounter Plan of Treatment Scheduled Procedures Name Priority Associated Diagnoses Date/Ti me EGD, UPPER GI ENDOSCOPY (WRV U 2.09) Esophageal dysphagia Encounter for colorectal cancer screening COLONOSCOPY, DIAGNOSTIC (WRV U 3.26) Esophageal dysphagia Encounter for colorectal cancer screening documented as of this encounter Visit Diagnoses Diagnosis Left inguinal hernia Inguinal hernia without mention of obstruction or gangrene, unilateral or unspecified, (not specified as recurrent) documented in this encounter Care Teams Wheel Truer Relationship Specialty Start Date End Date Ivanna Hughes APRN PCP - General 05/19/11 09/10/15 documented as of this encounter
--- OUTSIDE RECORDS SUMMARY | 2024-07-19 16:50 | XMS_ITS | Encounter Summary ---
Author Organization [facility] Address [facility] [address] [place] [address] Care Team Providers Care Personal Assistant Name Role Phone Ivanna Hughes APRN Primary Care Provider [phone]- [phone] Encounter Details Date Type Department Care Team (Late st Contact Info) Description 06/23/2014 Notes Only Urology at [facility] [place] [address] Jarocho Jenkins MD [address] [place] [address] Social History Tobacco Use Types Packs/Day Years [...] as of this encounter Progress Notes * Chepe Mckenzie LPN - 06/23/2014 9:20 AM EDT Ena, physical therapist, from [facility] called with an update on Mr. Ortez. Mr. Ortez is currently staying with his sister since his surgery. 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 He is now ambulating without his walker both inside and outside on uneven surfaces. He stated to physical therapy that he does not feel as though he needs therapy anymore. Ena needs an order from Dr. Jenkins before she can discharge Shree. Per Dr. Jenkins Mr. Ortez can be discharged from physical therapy. Called Ena and verbally gave discharge order via phone. documented in this encounter Plan of Treatment Scheduled Procedures Name Priority Associated Diagnoses Date/Ti me EGD, UPPER GI ENDOSCOPY (WRV U 2.09) Esophageal dysphagia Encounter for colorectal cancer screening COLONOSCOPY, DIAGNOSTIC (WRV U 3.26) Esophageal dysphagia Encounter for colorectal cancer screening documented as of this encounter Visit Diagnoses Not on filedocumented in this encounter Care Teams Personal Assistant Relationship Specialty Start Date End Date Ivanna Hughes APRN PCP - General 05/19/11 09/10/15 documented as of this encounter
--- OUTSIDE RECORDS SUMMARY | 2024-07-19 16:50 | XMS_ITS | Encounter Summary ---
Author Organization [facility] [address] [place] [place] [address] Care Team Providers Care Flatwork Catcher Name Role Phone Ivanna Hughes APRN Primary Care Provider [phone]- [phone] Encounter Details Date Type Department Care Team (Late st Contact Info) Description 12/15/2014 10:10 AM EDT - 12/15/2014 11:59 PM EDT Hospital Encounter CT Scan at [facility] [place] [address] CLINIC, DR VALLE Social History Tobacco Use Types Packs/Day Years [...] Diagnosis Comments CT ABDOMEN W CONTRAST Routine 12/15/2014 12:11 PM EDT documented in this encounter Results * CT abdomen with contrast (12/15/2014 12:11 PM EDT) Anatomical Region Laterality Modality Abdomen Computed Tomogra phy 12/15/2014 12:1 1 PM EDT Impressions 12/15/2014 3:48 PM EDT IMPRESSION: No evidence of local or distant disease recurrence. This report was reviewed by Cedric Alonso at 12/15/2014 3:43 PM Film and interpretation reviewed by the attending Narrative 12/15/2014 3:48 PM EDT EXAMINATION: ??CT Abdomen With Contrast CLINICAL HISTORY: ??surveillance ??s/p rad nephrectomy for RCC; [place] TECHNIQUE: Helical CT of the abdomen was performed following the intravenous administration of contrast. ??110 cc of Omnipaque 350 was given. Oral contrast was not administered. COMPARISON: ??CT abdomen 04/15/2014. MR abdomen 04/22/2014. FINDINGS: Lung bases: Within normal limits. Liver: ??Normal. Bile ducts: ??Nondilated. Gallbladder: ??No calcified gallstones. Normal caliber wall. Pancreas: ??Normal. Spleen: ??Normal. Adrenal: ??Normal. Kidneys: ??Interval left radical nephrectomy. No evidence of local disease recurrence. Right kidney is normal without evidence of suspicious lesions. Lymph nodes: ??No enlarged lymph nodes. Bowel: Moderate amount of stool throughout the colon. Bowel is nondilated without evidence of inflammatory changes. Peritoneum: ??No ascites, free air, or fluid collection. Vasculature: ??Within normal limits. Osseous structures: No suspicious lesions. Degenerative endplate changes within the lumbar spine. Procedure Note Cedric Alonso MD - 12/15/2014 EXAMINATION: CT Abdomen With Contrast CLINICAL HISTORY: surveillance s/p rad nephrectomy for RCC; [place] TECHNIQUE: Helical CT of the abdomen was performed following theintravenous administration of contrast. 110 cc of Omnipaque 350 was given. Oralcontrast was not administered. COMPARISON: CT abdomen 04/15/2014. MR abdomen 04/22/2014. FINDINGS: Lung bases: Within normal limits. Liver: Normal. Bile ducts: Nondilated. Gallbladder: No calcified gallstones. Normal caliber wall. Pancreas: Normal. Spleen: Normal. Adrenal: Normal. Kidneys: Interval left radical nephrectomy. No evidence of localdisease recurrence. Right kidney is normal without evidence of suspiciouslesions. Lymph nodes: No enlarged lymph nodes. Bowel: Moderate amount of stool throughout the colon. Bowel isnondilated without evidence of inflammatory changes. Peritoneum: No ascites, free air, or fluid collection. Vasculature: Within normal limits. Osseous structures: No suspicious lesions. Degenerative endplate changeswithin the lumbar spine. IMPRESSION IMPRESSION: No evidence of local or distant disease recurrence. This report was reviewed by Cedric Alonso at 12/15/2014 3:43 PM Film and interpretation reviewed by the attending Jarocho Jenkins MD IMG CT ORDERABLES documented in this encounter Visit Diagnoses Not on filedocumented in this encounter Administered Medications Inactive Administered Medications - up to 3 most recent administrations Medication Order MAR Action Action Date Dose Rate Site iodixanol (VISIPAQUE) 320 mg iodine/mL injection 100 mL 100 mL, Intravenous, ONCE PRN, 1 dose, Starting on Natty 12/15/14 at 1201, Until Natty 12/15/14 at 1201, Per Protocol, Routine Given 12/15/2014 12:01 PM EDT 100 mLs documented in this encounter Care Teams Flatwork Catcher Relationship Specialty Start Date End Date Ivanna Hughes, SOLUTION ADVISOR PCP - General 05/19/11 09/10/15 documented as of this encounter
--- OUTSIDE RECORDS SUMMARY | 2024-07-19 16:50 | XMS_ITS | Encounter Summary ---
Author Organization [facility] [address] [place] [address] Care Team Providers Care Safe Expert Name Role Phone Ivanna Hughes Red MARTIN Primary Care Provider [phone]- [phone] Reason for Visit * Reason Comments GI Problem Encounter Details Date Type Department Care Team (Late st Contact Info) Description 01/18/2015 9:00 AM EDT Office Visit [facility] [place] [address] Jelly Sewell [employer] [place] [address] Diffuse esophageal spasm Discharge Disposition: Home Social History Tobacco Use [...] Sign Reading Time Taken Comments Blood Pressure 142/87 01/18/2015 8:29 AM EDT Pulse 80 01/18/2015 8:29 AM EDT Temperature - - Respiratory Rate - - Oxygen Saturation - - Inhaled Oxygen Concentration - - Weight 95.3 kg (210 lb) 01/18/2015 8:29 AM EDT Weighed with shoes. Height 171.5 cm (5' 7.5) 01/18/2015 8: 29 AM EDT Body Mass Index 32.41 01/18/2015 8:29 AM EDT documented in this encounter Patient Instructions * Patient Instructions* Jelly Sewell APRN - 01/18/2015 9:40 AM EDT 1. Cardizem (diltiazem) 30 mg every 6 hours; you will start 30 mg daily x 5 days then increase to every 12 hours x 5 days then every 8 hours x 5 days then every 6 hours. 2. Check your blood pressure every day. If your systolic (top number) is less than 90 than hold thedose that day and if it remains low 2-3 days in a row than contact the office. 3. Call with an update in 4 weeks [phone] 4. Consider drinking warm liquids before meals to relax your esophagus 5. Follow up 3 months Jelly Sewell APRN [phone] documented in this encounter Progress Notes * Jelly Sewell APRN - 01/18/2015 8:16 AM EDT Subjective: Patient ID: Shree Ortez Jr. is a 64 y.o. man who presents for further evaluation of his gastrointestinal symptoms at the request of Ivanna Hughes APRN. GI Problem List: 1. Dysphagia: --HROEM 12/15/14: 1. Normal LES resting pressure. 2. Normal LES relaxation. 3. Normal UES resting pressure. 4. Normal UES relaxation. 5. Diffuse esophageal spasm given that 62% of swallows were premature and distal latency was below normal limits. --EGD 09/26/2014: normal esophagus; Z-line regular, 40 cm from the incisors; a single gastric polyp and normal examined duodenum. Path: Irregular hyperplastic inflamed foveolar-type mucosa, compatible with origin from a hyperplastic polyp. H. pylori is negative. HPI Comments: Shree Ortez is a pleasant 64 year old man who presents for consultation of his esophageal spasms and chocking episodes. He reports experiencing difficulty swallowing solids especially dry solids and difficulty clearing mucus in the back of his throat for the past year. He feels then hang up in his throat. He has had to chew his food more carefully. He denies having to induce vomiting or present to local ER secondaryto food impaction. He admits to intermittent episodes of chocking on his food immediately after swallowing. He will also chock upon laying down. Denies nasal regurgitation or coughing food hours after eating. He reports intermittent chest pain without radiation. Feels like there is gas stuck in my chest. Does not occur immediately after eating. He has never had to induce vomiting or drink fluids to relieve the lodged food bolus. It is unpredictable and unable to identify any specific triggers. Chest x-ray 12/15/2014: The previously seen faint subcentimeter nodular opacity overlying the right lower lung zone is unchanged. However, this was not a pulmonary nodule by chest CT. The lungs are otherwise clear. The cardial mediastinal silhouette and kalpana appear normal. No pleural effusion or significant bone abnormality is seen. He reports upon awakening that his throat feels sore and dry. He will use cough drops throughout the day and carries a bottle of water with him. Periodic cough but no hoarseness. --HROEM 12/15/14: 1. Normal LES resting pressure. 2. Normal LES relaxation. 3. Normal UES resting pressure. 4. Normal UES relaxation. 5. Diffuse esophageal spasm given that 62% of swallows were premature and distal latency was below normal limits. --EGD 09/26/2014: normal esophagus; Z-line regular, 40 cm from the incisors; a single gastric polyp and normal examined duodenum. Path: Irregular hyperplastic inflamed foveolar-type mucosa, compatible with origin from a hyperplastic polyp. H. pylori is negative. He reports having a formed bowel movement every day. No melena, hematochezia, rectal or anal pain. No fecal incontinence or nocturnal symptoms. No food allergies or intolerances. Weight stable. Denies heartburn, regurgitation, acid taste, odynophagia, nausea, vomiting, early satiety, postprandial fullness, pre or post prandial symptoms, abdominal pain or cramping Review of Systems Constitutional: Negative. HENT: Positive for trouble swallowing (See HPI). Negative for congestion, dental problem, drooling,ear discharge, ear pain, facial swelling, hearing loss, mouth sores, nosebleeds, postnasal drip, rhinorrhea, sinus pressure, sneezing, sore throat, tinnitus and voice change. Respiratory: Negative. Cardiovascular: Negative. Gastrointestinal: See HPI Endocrine: Negative. Musculoskeletal: Negative. Skin: Negative. Allergic/Immunologic: Negative. Neurological: Negative. Hematological: Negative. Psychiatric/Behavioral: Negative. Allergies: NKDA Current Outpatient Prescriptions on File Prior to Visit Medication Sig Dispense Refill ??? acetaminophen (TYLENOL) 500 mg Tablet Take 2 tablets by mouth every 8 hours as needed for Pain. ??? terazosin (HYTRIN) 1 mg capsule Take 1 mg by mouth nightly. No current facility-administered medications on file prior to visit. Past Medical History Diagnosis Date ??? Cancer of kidney Left ??? HTN (hypertension) Past Surgical History Procedure Laterality Date ??? Lap, radical nephrectomy 06/07/2014 @LAPAROSCOPY, RADICAL NEPHRECTOMY performed by Jarocho Jenkins MD at [facility] MAIN OR ??? Colonoscopy, diagnostic N/A 09/26/2014 COLONOSCOPY, DIAGNOSTIC performed by Nina Almaguer MD at [facility] ENDOSCOPY ??? Upper gi endoscopy, biopsy N/A 09/26/2014 EGD WITH BIOPSY performed by Nina Almaguer MD at [facility] ENDOSCOPY ??? Appendectomy 1972 ??? Total nephrectomy Left 06/07/14 ??? Cyst removal History Social History ??? Marital Status: Single Spouse Name: N/A Number of Children: N/A ??? Years of Education: N/A Occupational History ??? Not on file. Social History Main Topics ??? Smoking status: Former Smoker Quit date: 05/28/1970 ??? Smokeless tobacco: Never Used ??? Alcohol Use: No ??? Drug Use: No ??? Sexual Activity: Not on file Other Topics Concern ??? Not on file Social History Narrative FMHx: no h/o esophageal cancer; IBD; celiac disease; liver or pancreatic disease Sister: colon cancer; in her 50's Vital Signs: BP 142/87; P 80; Wt 210 lbs; Ht 5'7.5 Objective: Physical Exam Constitutional: He is oriented to person, place, and time. He appears well- developed and well-nourished. No distress. HENT: Head: Normocephalic and atraumatic. Mouth/Throat: Oropharynx is clear and moist. No oropharyngeal exudate. Eyes: Conjunctivae and EOM are normal. Pupils are equal, round, and reactive to light. Right eye exhibits no discharge. Left eye exhibits no discharge. No scleral icterus. Neck: Normal range of motion. Neck supple. No JVD present. No tracheal deviation present. No thyromegaly present. Cardiovascular: Normal rate, regular rhythm, normal heart sounds and intact distal pulses. Exam reveals no gallop and no friction rub. No murmur heard. Pulmonary/Chest: Effort normal and breath sounds normal. No stridor. No respiratory distress. He has no wheezes. He has no rales. He exhibits no tenderness. Abdominal: Soft. Bowel sounds are normal. He exhibits no distension and no mass. There is no tenderness. There is no rebound and no guarding. No hepatosplenomegaly. No succussion splash. No epigastric bruit. Genitourinary: Rectal exam deferred. Lymphadenopathy: He has no cervical adenopathy. Neurological: He is alert and oriented to person, place, and time. Skin: Skin is warm and dry. No rash noted. He is not diaphoretic. No erythema. No pallor. Psychiatric: He has a normal mood and affect. His behavior is normal. Judgment and thought content normal. Vitals reviewed. Assessment and Plan: Shree Ortez is a pleasant 64 year old man who presents for consultation of his esophageal spasms and chocking episodes. We reviewed the result of his EGD that revealed no abnormality and his esophageal manometry showed normal LES resting pressures/relaxation and diffuse esophageal spasms. Discussed the etiology, pathophysiology and treatment of diffuse esophageal spasms. Recommend Cardizem (diltiazem) 30 mg qd-QID. If tolerated then will switch to long acting calcium channel georgi. If not tolerated then consider low dose TCA, swallowed albuterol inhaler or EGD with Botox injection. He is amenable to this. Instructed patient to call with an update in 4 weeks. 2. ?Silent GERD: discussed the etiology, pathophysiology, diagnostic tests and treatment of silent GERD. Will re-evaluate in 4 weeks. Consider Moya ph study or Impedance off PPI or consider trying aPPI for up to 6 weeks. I did my best to answer all of his questions. The following plan was formulated. Plan: 1. Cardizem (diltiazem) 30 mg QID; you will start 30 mg daily x 5 days then increase to BID x 5 days then TID x 5 days then QID. 2. Check BP margarette; if SBP < 90 then hold Cardizem. If it remains low 2-3 days in a row than contact the office. 3. Instructed patient to call with an update in 4 weeks 4. Consider drinking warm liquids before meals 5. Follow up 3 months or sooner Patient understands and is agreeable to the above plan. Written instructions provided. I spent a total of 54 minutes face to face with this patient; 30 minutes were spent counseling the patient in the medical problems described above. Thank you for the referral, Jelly Sewell APRN Section of Gastroenterology [place] [address] documented in this encounter Plan of Treatment Scheduled Procedures Name Priority Associated Diagnoses Date/Ti me EGD, UPPER GI ENDOSCOPY (WRV U 2.09) Esophageal dysphagia Encounter for colorectal cancer screening COLONOSCOPY, DIAGNOSTIC (WRV U 3.26) Esophageal dysphagia Encounter for colorectal cancer screening documented as of this encounter Visit Diagnoses Diagnosis Diffuse esophageal spasm Dyskinesia of esophagus documented in this encounter Care Teams Safe Expert Relationship Specialty Start Date End Date Ivanna Hughes APRN PCP - General 05/19/11 09/10/15 documented as of this encounter
--- OUTSIDE RECORDS SUMMARY | 2024-07-19 16:50 | XMS_ITS | Encounter Summary ---
Author Organization Formerly [facility] [place] [place] [address] Care Team Providers Care Application Integration Engineer Name Role Phone Ivanna Hughes APRN Primary Care Provider [phone] Encounter Details Date Type Department Care Team (Late st Contact Info) Description 09/26/2014 3:00 PM EST - 09/26/2014 4:00 PM EST [place] [id number] Margarita Almaguer MD [facility] [address] [place] [address] COLONOSCOPY, DIAGNOSTIC (WRVU 3.26) Social History Tobacco Use Types Packs/Day Years [...] Sign Reading Time Taken Comments Blood Pressure 141/85 09/26/2014 4:16 PM EST Pulse 64 09/26/2014 4:16 PM EST Temperature 36.6 ??C (97.9 ??F) 09/26/2014 2:48 PM ES T Respiratory Rate 16 09/26/2014 4:16 PM EST Oxygen Saturation 99% 09/26/2014 4:16 PM EST Inhaled Oxygen Concentration - - Weight - - Height - - Body Mass Index - - documented in this encounter Discharge Instructions * Discharge Instructions* Mary Snell, DEANNA - 09/26/2014 4:19 PM EST UPPER GI ENDOSCOPY WHAT TO EXPECT AFTER THE PROCEDURE Medications You may have a mild sore throat. Ice chips, popsicles, over the counter throat lozenges or spray may help numb your throat. This procedure should not cause a fever. Call your healthcare provider or seek immediate medical attention if: You have trouble swallowing. You have belly pain. Your stools are black or tarlike or have streaks of blood. You are sick to your stomach or cannot keep fluids down. Watch closely for changes in your health, and be sure to contact your doctor IF Your throat still hurts after a day or two You do not get better as expected. Colonoscopy and polyp removal What to expect after the procedure You may feel a little more gassy or bloated than usual, this is normal. You should expect the return of normal bowel function in the next 2 to 3 days. Because some polyps were removed, you may see a little blood with the next few bowel movements, this should be a small amount ( less than a few tablespoons) and will resolve on it's own. ACTIVITY Because of the sedation that you received Your judgement and reaction time are effected ?? Go home and rest for the remainder for the day. You may resume your normal activities tomorrow ?? Change from one position to the next slowly because you may lose your balance unexpectedly. ?? Be careful on stairs, as you may be unsteady. FOR THE NEXT 24 HRS ?? DO NOT DRIVE OR OPERATE MACHINERY ?? DO NOT DRINK ALCOHOLIC BEVERAGES ?? DO NOT SIGN LEGAL DOCUMENTS ?? If you are a smoker: DO NOT SMOKE WHILE YOU ARE ALONE Diet ?? Start by eating small portions of foods that ordinarily will not upset your stomach, avoid gas producing foods for the next few days. ?? Be gentle with what you choose to start with ?? Drink plenty of fluids ( unless your doctor has told you not to). Medicines Avoid medicines that influence the way your blood clots for the next week. These would include anti-inflammatory medicine, such as ibuprofen( Advil, Motrin) and naproxen ( Aleve). If you need something for discomfort, Tylenol (Acetaminophen) is safe if used as directed. Your Doctor will tell you when to restart your prescribed blood thinners The IV site-- slight tenderness, or redness is normal, you can use warm compresses if you get concerned. If the tenderness +/or redness increases or foul drainage and a red streak occurs, please contact your PCP immediately. When should you call for help? Call 911 anytime you think you may need emergency care. For example If you pass out (loss of consciousness) If you pass maroon or bloody stools If you have severe belly pain Call your healthcare provider or seek immediate medical care if: Your stools are black or tar like Your stools have streaks of blood that is more pronounced with each BM You have belly pain, or your belly is swollen and firm You vomit You have a fever You are very dizzy Watch closely for changes in your health, and be sure to contact your doctor if you have any problems. Your Doctor will let you know when you will need your next colonoscopy. The results of your test and your risk for colorectal cancer will help your doctor decide how often you need to be checked. [facility] [phone] 8a-5p Same Day Endo [phone] 7a-8p Otherwise contact [phone] and ask to speak to the property controller refractive surgeon Follow up care is a huff part of your treatment and safety. Be sure to make and go to all appointments, and call your doctor if you are having problems. Discharge instructions reviewed with patient who expresses understanding documented in this encounter Medications at Time of Discharge Medication Sig Dispensed Refills Start Date End Date acetaminophen (TYLENOL) 500 mg Tablet Take 2 tablets by mouth every 8 hours as needed for Pain. 06/09/2014 01/17/2017 terazosin (HYTRIN) 1 mg capsule Take 1 mg by mouth nightly. 01/14/2019 documented as of this encounter Progress Notes * Andre Frankel RN - 09/23/2014 3:29 PM EST ENDOSCOPY PATIENT HISTORY Name: SHREE ORTEZ JRAlisa : 1950 Age: 64 y.o. [address]: [address] [place] [phone] (home) Mobile: No relevant phone numbers on file. Referring Provider: Ivanna Hughes Referral Procedure: EGD / Colonoscopy Allergies: No Known Allergies Problem list: Patient Active Problem List Diagnosis Code ??? 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 Past Surgical History: Past Surgical History Procedure Laterality Date ??? Lap, radical nephrectomy 06/07/2014 @LAPAROSCOPY, RADICAL NEPHRECTOMY performed by Jarocho Jenkins MD at [facility] Medications: Prior to Admission medications Medication Sig Start Date End Date Taking? Authorizing Provider acetaminophen (TYLENOL) 500 mg Tablet Take 2 tablets by mouth every 8 hours as needed for Pain. 06/09/14 Nafisa Barksdale PA ondansetron (ZOFRAN) 4 mg Tablet Take 1 tablet by mouth every 8 hours as needed. 06/09/14 Nafisa Barksdale PA oxyCODONE (ROXICODONE) 5 mg Tablet Take 1-3 tablets by mouth every 4 hours as needed for Pain. 06/09/14 Nafisa Barksdale PA terazosin (HYTRIN) 1 mg capsule Take 1 mg by mouth nightly. Provider, Historical Date / Procedure Comments: documented in this encounter H&P Notes * Margarita Almaguer MD - 09/26/2014 3:15 PM EST Procedure: EGD and Colonoscopy Indication: dysphagia, avg risk screen Brief HPI: 64 yo M with h/o RCC s/p nephrectomy who presents with 4 years of dsyphagia (hang up offood in throat) - no alarm features of weight loss, early satiety, nausea/vomiting. Also here for first time avg risk screening colonoscopy. Problem List: Patient Active Problem List Diagnosis Code ??? 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 male here for EGD and Colonoscopy. Proceed with the planned endoscopic procedure. Risks and benefits of the procedure explained to the patient. Consent signed. documented in this encounter Miscellaneous Notes * Op Note - Margarita Almaguer MD - 09/26/2014 4:23 PM EST [facility] Operative Note Patient Name: Shree Ortez Jr. : [id number] MR#: [id number] Case Date: 09/26/2014 Surgeon: Surgeon(s) and Role: * Margarita Almaguer MD - Primary Preoperative diagnosis: difficulty swallowing, narrowing of the esophagus Postoperative diagnosis: * No post-op diagnosis entered * Procedure(s): COLONOSCOPY, DIAGNOSTIC EGD WITH BIOPSY See Provation procedure note. MARGARITA ALMAGUER MD 09/26/2014 documented in this encounter Plan of Treatment Scheduled Procedures Name Priority Associated Diagnoses Date/Ti me EGD, UPPER GI ENDOSCOPY (WRV U 2.09) Esophageal dysphagia Encounter for colorectal cancer screening COLONOSCOPY, DIAGNOSTIC (WRV U 3.26) Esophageal dysphagia Encounter for colorectal cancer screening documented as of this encounter Procedures Procedure Name Priority Date/Time Associated Diagnosis Comments SPECIMEN TO PATHOLOGY Routine 09/26/2014 4:13 PM EST SPECIMEN TO PATHOLOGY Routine 09/26/2014 4:13 PM EST SPECIMEN TO PATHOLOGY Routine 09/26/2014 4:13 PM EST SURGICAL PATHOLOGY REPORT Routine 09/26/2014 4:12 PM EST EGD WITH BIOPSY (WRVU 2.39) 09/26/2014 3:17 PM EST difficulty swallowing, narrowing of the esophagus COLONOSCOPY, DIAGNOSTIC (WRVU 3.26) 09/26/2014 3:17 PM EST difficulty swallowing, narrowing of the esophagus UPPER GI ENDOSCOPY Routine 09/26/2014 3: 12 PM EST COLONOSCOPY Routine 09/26/2014 3:12 PM EST documented in this encounter Results * Specimen to Pathology (surgical or derm) (09/26/2014 4:13 PM EST) AP Specimen 09/26/2014 4:13 PM EST 09/26/2014 4:13 PM EST Narrative [facility]ENRY LOPEZIUM - 09/26/2014 4:13 PM EST Specimen requisition ordered. ??Separate Pathology report to follow Margarita Almaguer MD PATHOLOGY/CYTOLOGY O RDELEAZAR Performing Organization Address [facility] Co de Phone Number [facility] * Specimen to Pathology (surgical or derm) (09/26/2014 4:13 PM EST) AP Specimen 09/26/2014 4:13 PM EST 09/26/2014 4:13 PM EST Narrative [facility] LOPEZIUM - 09/26/2014 4:13 PM EST Specimen requisition ordered. ??Separate Pathology report to follow Margarita Almaguer MD PATHOLOGY/CYTOLOGY O TRISTIAN Performing Organization Address [facility] Co de Phone Number [facility] * Specimen to Pathology (surgical or derm) (09/26/2014 4:13 PM EST) AP Specimen 09/26/2014 4:13 PM EST 09/26/2014 4:13 PM EST Narrative [facility]ENRY LOPEZIUM - 09/26/2014 4:13 PM EST Specimen requisition ordered. ??Separate Pathology report to follow Margarita Almaguer MD PATHOLOGY/CYTOLOGY O TRISTIAN Performing Organization Address [facility] Co de Phone Number [facility] * Surgical Pathology Report (09/26/2014 4:12 PM EST) Final Diagnosis ? [facility] ? Provider: ?? MARGARITA ALMAGUER ?Pt. Name: ?? BALJINDER GARCÍA, SHREE Aparicio ? Acc #: ?[id number] ?Pt. ? Col Date: ?? 09/26/2014 ?/Sex: ?1950,(64 years),Male ? Rec Date: ?? 09/26/2014 ?LOC: ?4T ? SURGICAL PATHOLOGY ? ---Pathologic Diagnosis--- ? A - Ascending colon, polypectomy: ? Hyperplastic polyp. ? B - Transverse colon, polypectomy: ? Hyperplastic polyp. ? C - Gastric polyp, biopsy: ? Irregular hyperplastic inflamed foveolar-type mucosa, compatible with ? origin from a hyperplastic polyp. ? Immunostaining for H. pylori is negative. ? CR-0, CR-PX ? 09/28/14 ? ANW ? 09/28/14 Verified by: ? Josh Jackson MD ? Pathologist ? (Electronic Signature) ? The attending pathologist whose signature appears on this report has ? reviewed all diagnostic slides and has edited the gross and/or ? microscopic portion of the report in rendering the final pathologic ? diagnosis. ? ---Gross Description--- ? A - Labeled/Fixative: Ascending polypectomy diminutive sessile, cold ? snared, formalin. ? Quantity/Size: Single, 0.5 cm. ? Tissue Description: Soft, pink strip of mucosa. ? Sections/Processi ng: Bisected. (T1) ? B - Labeled/Fixative: Transverse polyp, diminutive, cold snared, formalin. ? Quantity/Size: Three, ranging from 0.3-0.6 cm. ? Tissue Description: Soft, pink tissues. ? Sections/Processi ng: (T1) ? C - Labeled/Fixative: Gastric polyp, biopsy and, formalin. ? Quantity/Size: Two, averaging 0.4 cm. ? Tissue Description: Soft, pink tissues. ? Sections/Processi ng: (T1) ??sns ? ---Clinical Information--- ? Specimen Submitted: ? [facility] ? Provider: ?? MARGARITA ALMAGUER ?Pt. Name: ?? BALJINDER GARCÍA, SHREE Aparicio ? Acc #: ?[id number] ?Pt. ? Col Date: ?? 09/26/2014 ?/Sex: ?1950,(64 years),Male ? Rec Date: ?? 09/26/2014 ?LOC: ?4T ? SURGICAL PATHOLOGY ? A - Ascending polyp, diminutive sessile, cold snared ? B - Transverse polyp, diminutive, cold snared ? C - Gastric polyp, biopsied ? Clinical History: ? Polyp ? Clinical Diagnosis: ? Same 09/28/2014 4:[address] [facility] GI Biopsy 09/26/2014 4:12 PM EST 09/26/2014 4:12 PM EST GI Biopsy 09/26/2014 4:12 PM EST 09/26/2014 4:12 PM EST GI Biopsy 09/26/2014 4:12 PM EST 09/26/2014 4:12 PM EST Margarita Almaguer MD PATHOLOGY/CYTOLOGY O RDERABLES Performing Organization Address [facility] Co de Phone Number [facility] [address] * UPPER GI ENDOSCOPY (09/26/2014 3:12 PM EST) UPPER GI ENDOSCOPY [facility] Endoscopy Patient Name: Shree Ortez ? Procedure Date: 09/26/2014 3:12 PM ? Date of : 1950 ? Age: 64 ? Order #: [id number] ? Procedure: ? Upper GI endoscopy Indications: ? Dysphagia Providers: ? Margarita Almaguer MD, Marissa Zamorano ? Vikki Caraballo MD: ?Ivanna Hughes MD Medicines: ? Fentanyl 100 micrograms IV, Midazolam ? 2 mg IV Complications: ? No immediate complications. [...] to the ? procedure by the physician. The ? procedure was verified in the ? pre-procedure area. ? - Pre-procedure physical examination ? revealed no contraindications to ? sedation. ? - ASA Grade Assessment: II - A ? patient with mild systemic disease. ? - After reviewing the risks and ? benefits, the patient was deemed in ? satisfactory condition to undergo the ? procedure. ? - The anesthesia plan was to use ? moderate sedation/analgesia ? (conscious sedation). ? The procedure, indications, benefits, ? risks and alternatives were explained ? to the patient. Specifically ? discussed were potential ? complications including, but not ? limited to, bleeding, perforation, ? infection, missing a cancer, and ? adverse medication reactions. The ? Endoscope was introduced through the ? mouth, and advanced to the second ? part of duodenum. The patient ? tolerated the procedure well. The ? upper GI endoscopy was accomplished ? with ease. The patient tolerated the ? procedure well. ? Findings: ? The examined esophagus was normal. ? The Z-line was regular and was found 40 cm from the ? incisors. ? There is no endoscopic evidence of stenosis, ? stricture or mass in the entire esophagus. ? A single 6 mm pedunculated polyp with no bleeding and ? no stigmata of recent bleeding was found in the ? gastric body. Biopsies were taken with a cold forceps ? for histology. ? No other significant abnormalities were identified in ? a careful examination of the stomach. ? The cardia and gastric fundus were normal on ? retroflexion. ? The examined duodenum was normal. ? Impression: ?- Normal esophagus. ? - Z-line regular, 40 cm from the ? incisors. ? - A single gastric polyp. Biopsied. ? - Normal examined duodenum. Recommendation: ?- Await pathology results. ? - Consider manometry study if ? persistance of dysphagia. ? - Proceed to colonoscopy. ? Attending Participation: ? I personally performed the entire procedure. ? Margarita Almaguer MD 09/26/2014 3:43 PM Number of Addenda: 0 Note Initiated On: 09/26/2014 3:12 PM PROVATION 09/26/2014 3:12 PM EST Ivanna Hughes APRN GENERAL SURGICAL O RDERABLES PROVATION * COLONOSCOPY (09/26/2014 3:12 PM EST) COLONOSCOPY [facility] Endoscopy Patient Name: Shree Ortez ? Procedure Date: 09/26/2014 3:12 PM ? Date of : 1950 ? Age: 64 ? Order #: [id number] ? Procedure: ? Colonoscopy Indications: ? Screening for colorectal malignant ? neoplasm Providers: ? Margarita Almaguer MD, Marissa Zamorano ? Vikki Caraballo Referring MD: ?Ivanna Hughes MD Medicines: ? Fentanyl 25 [...] I personally performed the entire procedure. ? Margarita Almaguer MD 09/26/2014 4:16 PM Number of Addenda: 0 Note Initiated On: 09/26/2014 3:12 PM PROVATION 09/26/2014 3:12 PM EST Ivanna Hughes APRN GENERAL SURGICAL O RDERABLES PROVATION documented in this encounter Visit Diagnoses Not on filedocumented in this encounter Administered Medications Inactive Administered Medications - up to 3 most recent administrations Medication Order MAR Action Action Date Dose Rate Site fentaNYL 50 mcg/mL multi-dose injection ONCE PRN, Starting on 09/26/14 at 1520, Until Fri09/26/14 at 1801, Intra-Operative (Intra-Procedure), Routine Given 09/26/2014 3:47 PM EST 25 mcg Given 09/26/2014 3:24 PM EST 50 mcg Given 09/26/2014 3:21 PM EST 50 mcg lactated ringers infusion 100 mL/hr, Intravenous, CONTINUOUS, Starting on Fri09/26/14 at 1515, Until 09/26/14 at 1801, Endoscopy (Day of Procedure) New Bag 09/26/2014 3:02 PM EST 100 mL/hr 100 mL/hr midazolam (PF) (VERSED) 1 mg/mL multi-dose injection ONCE PRN, Starting on Fri09/26/14 at 1520, Until Fri09/26/14 at 1801, Intra-Operative (Intra-Procedure), Routine Given 09/26/2014 3:47 PM EST 0.5 mg Given 09/26/2014 3:24 PM EST 1 mg Given 09/26/2014 3:21 PM EST 1 mg documented in this encounter Active and Recently Administered Medications Times are shown in EST. Continuous Medication Order 09/24/2014 09/25/2014 09/26/2014 lactated ringers infusion (CANCELED) 100 mL/hr, Intravenous, CONTINUOUS, Starting on Fri09/26/14 at 1515, Until Fri09/26/14 at 1801, Endoscopy (Day of Procedure) 1502 (New Bag - Prov ider: Carl Frederick RN) PRN Medication Order 09/24/2014 09/25/2014 09/26/2014 fentaNYL 50 mcg/mL multi-dose injection (CANCELED) ONCE PRN, Starting on Fri09/26/14 at 1520, Until Fri09/26/14 at 1801, Intra-Operative (Intra-Procedure), Routine 1521 (Given - Provid er: Marissa Caraballo RN)1524 (Given - Provider: Marissa Caraballo RN)1547 (Given - Provider: Marissa Caraballo RN) midazolam (PF) (VERSED) 1 mg/mL multi-dose injection (CANCELED) ONCE PRN, Starting on Fri09/26/14 at 1520, Until 09/26/14 at 1801, Intra-Operative (Intra-Procedure), Routine 1521 (Given - Provid er: Marissa Caraballo RN)1524 (Given - Provider: Marissa Caraballo RN)1547 (Given - Provider: Marissa Caraballo, RN) documented in this encounter Care Teams Application Integration Engineer Relationship Specialty Start Date End Date Ivanna Hughes APRN PCP - General 05/19/11 09/10/15 documented as of this encounter
--- OUTSIDE RECORDS SUMMARY | 2024-07-19 16:50 | XMS_ITS | Encounter Summary ---
Author Organization [facility] Address [facility] [address] [place] [address] Care Team Providers Care Community Development Technician Name Role Phone Ivanna Hughes APRN Primary Care Provider [phone]- [phone] Encounter Details Date Type Department Care Team (Latest Contact Info) Description 09/26/2014 1:39 PM EST - 09/26/2014 5:29 PM EST Hospital Encounter [place] [address] Margarita Almaguer MD [facility] [address] [place]STRO[place] [address] Discharge Disposition: Home Social History Tobacco Use [...] When should you call for help? Call 341 anytime you think you may need emergency [...] you need to be checked. [facility] [phone] 8a-5p Same Day Endo [phone] 7a-8p Otherwise contact [phone] and ask to speak to the entry level software engineer zone supervisor firearms Follow up care is a huff part [...] EST ENDOSCOPY PATIENT HISTORY Name: SHREE ORTEZ JR. : 1950 Age: 64 y.o. Address: [address] [place] [phone] (home) Mobile: No relevant phone numbers on [...] NEPHRECTOMY performed by Jarocho Jenkins MD at [facility] MAIN OR Medications: Prior to Admission medications [...] Almaguer MD - 09/26/2014 4:23 PM EST [facility] [place] Operative Note Patient Name: Shree Ortez Jr. : [id number] MR#: [id number] Case Date: 09/26/2014 Surgeon: Surgeon(s) and Role: [...] EST 09/26/2014 4:13 PM EST N[facility]ative [facility] - 09/26/2014 4:13 PM EST Specimen requisition ordered. ??Separate Pathology report to follow Margarita Almaguer MD PATHOLOGY/CYTOLOGY O RDELEAZAR Performing Organization Address [facility] Co de Phone Number [facility] * Specimen to Pathology (surgical or derm) (09/26/2014 4:13 PM EST) AP Specimen 09/26/2014 4:13 PM EST 09/26/2014 4:13 PM EST Narrative [facility] - 09/26/2014 4:13 PM EST Specimen requisition ordered. ??Separate Pathology report to follow Margarita Almaguer MD PATHOLOGY/CYTOLOGY O TRISTIAN Performing Organization Address [facility] Co de Phone Number [facility] * Specimen to Pathology (surgical or derm) (09/26/2014 4:13 PM EST) AP Specimen 09/26/2014 4:13 PM EST 09/26/2014 4:13 PM EST Narrative [facility] - 09/26/2014 4:13 PM EST Specimen requisition ordered. ??Separate Pathology report to follow Margarita Almaguer MD PATHOLOGY/CYTOLOGY O TRISTIAN Performing Organization Address [facility] Co de Phone Number [facility] * Surgical Pathology Report (09/26/2014 4:12 PM EST) Final Diagnosis ? [facility] ? Provider: ?? MARGARITA ALMAGUER ?Pt. Name: ?? SHREE ORTEZ JR ? Acc #: ?[id number] ?Pt. ? Col Date: ?? 09/26/2014 ?/Sex: [...] ? ---Clinical Information--- ? Specimen Submitted: ? [facility] ? Provider: ?? MARGARITA ALMAGUER ?Pt. Name: ?? BALJINDER GARCÍA, SHREE Aparicio ? Acc #: ?[id number] ?Pt. ? Col Date: ?? 09/26/2014 ?/Sex: ?1950,(64 years),Male ? Rec Date: ?? 09/26/2014 ?LOC: ?4T ? SURGICAL PATHOLOGY ? A - Ascending polyp, diminutive sessile, cold snared ? B - Transverse polyp, diminutive, cold snared ? C - Gastric polyp, biopsied ? Clinical History: ? Polyp ? Clinical Diagnosis: ? Same 09/28/2014 4:23 PM EST [facility] GI Biopsy 09/26/2014 4:12 PM EST 09/26/2014 4:12 PM EST GI Biopsy 09/26/2014 4:12 PM EST 09/26/2014 4:12 PM EST GI Biopsy 09/26/2014 4:12 PM EST 09/26/2014 4:12 PM EST Margarita Almaguer MD PATHOLOGY/CYTOLOGY O RDERABLES Performing Organization Address City/State/[facility] Co de Phone Number [facility] [place] [address] * UPPER GI ENDOSCOPY (09/26/2014 3:12 PM EST) UPPER GI ENDOSCOPY [facility] Endoscopy Patient Name: Shree Ortez ? Procedure Date: 09/26/2014 3:12 PM ? Date of : 1950 ? Age: 64 ? Order #: [id number] ? Procedure: ? Upper GI endoscopy Indications: [...] * COLONOSCOPY (09/26/2014 3:12 PM EST) COLONOSCOPY [facility] Endoscopy Patient Name: Shree Ortez ? Procedure Date: 09/26/2014 3:12 PM ? Date of : 1950 ? Age: 64 ? Order #: [id number] ? Procedure: ? Colonoscopy Indications: ? Screening [...] MAR Action Action Date Dose Rate Site lactated ringers infusion 100 mL/hr, Intravenous, CONTINUOUS, Starting on 09/26/14 at 1515, Until Fri09/26/14 at 1801, Endoscopy (Day of Procedure) New Bag 09/26/2014 3:02 PM EST 100 mL/hr 100 mL/hr documented in this encounter Active and Recently Administered Medications Times are shown in EST. Continuous Medication Order 09/24/2014 09/25/2014 09/26/2014 lactated ringers infusion (CANCELED) 100 mL/hr, Intravenous, CONTINUOUS, Starting on Fri09/26/14 at 1515, Until Fri09/26/14 at 1801, Endoscopy (Day of Procedure) 1502 (New Bag - Prov ider: Carl Frederick, DEANNA) PRN Medication Order 09/24/2014 09/25/2014 09/26/2014 fentaNYL 50 mcg/mL multi-dose injection (CANCELED) ONCE PRN, Starting on Fri09/26/14 at 1520, Until Fri09/26/14 at 1801, Intra-Operative (Intra-Procedure), Routine 1521 (Given - Provid er: Marissa Caraballo RN)1524 (Given - Provider: Marissa Caraballo, DEANNA)1547 (Given - Provider: Marissa Caraballo, RN) midazolam (PF) (VERSED) 1 mg/mL multi-dose injection (CANCELED) ONCE PRN, Starting on Fri09/26/14 at 1520, Until Fri09/26/14 at 1801, Intra-Operative (Intra-Procedure), Routine 1521 (Given - Provid er: Marissa Caraballo RN)1524 (Given - Provider: Marissa Caraballo, RN)1547 (Given - Provider: Marissa Caraballo, RN) documented in this encounter Care Teams Community Development Technician Relationship Specialty Start Date End Date Ivanna Hughes SCREEN WRITER PCP - General 05/19/11 09/10/15 documented as of this encounter
--- OUTSIDE RECORDS SUMMARY | 2024-07-19 16:50 | XMS_ITS | Encounter Summary ---
Author Organization [facility] [address] [place] [address] Care Team Providers Care Systems Test Analyst Name Role Phone Ivanna Hughes APRN Primary Care Provider +1- [phone] Reason for Visit * Reason Onset Date Comments Advice Only 02/17/2015 Encounter Details Date Type Department Care Team (Late st Contact Info) Description 02/17/2015 Telephone Gastroenterology at [facility] [place] [phone] John Eason, bakery products checker Only Social History Tobacco Use Types Packs/Day Years [...] encounter Miscellaneous Notes * Telephone Encounter - John Eason, RN - 02/17/2015 3:47 PM EDT Patient left telephone message stating that he is calling to f/u (4 weeks after his last clinic visit, per plan as discussed/agreed with Halima Sewell APRN on January 18, 2015). Returned patient's call. nO answer, left message on identified voice mailbox for patient to return call on Friday02/20/15. documented in this encounter Plan of Treatment Scheduled Procedures Name Priority Associated Diagnoses Date/Ti me EGD, UPPER GI ENDOSCOPY (WRV U 2.09) Esophageal dysphagia Encounter for colorectal cancer screening COLONOSCOPY, DIAGNOSTIC (WRV U 3.26) Esophageal dysphagia Encounter for colorectal cancer screening documented as of this encounter Visit Diagnoses Not on filedocumented in this encounter Care Teams Systems Test Analyst Relationship Specialty Start Date End Date Ivanna Hughes APRN PCP - General 05/19/11 09/10/15 documented as of this encounter
--- OUTSIDE RECORDS SUMMARY | 2024-07-19 16:51 | XMS_ITS | Encounter Summary ---
Author Organization [facility] Address [facility] [address] [place] [address] Care Team Providers Care Golf Teacher Name Role Phone Ivanna Hughes APRN Primary Care Provider [phone] Reason for Visit * Reason Comments Hand Injury Encounter Details Date Type Department Care Team (Late st Contact Info) Description 05/19/2011 11:18 PM EDT - 05/20/2011 6:00 AM EDT Emergency Emergency Department [facility] [place] [id number] EMERGENCY DEPT, [facility] [place] [address] Discharge Disposition: Home Social History Tobacco Use Types Packs/Day Years Used Date Smoking Tobacco: Never Assessed Sex and Gender Information Value Date Recorded Sex Assigned at Not on file Gender Identity Not on file Sexual Orientation Not on file documented as of this encounter Last Filed Vital Signs Vital Sign Reading Time Taken Comments Blood Pressure 139/93 05/20/2011 4:00 AM EDT Pulse 93 05/20/2011 4:00 AM EDT Temperature 36.7 ??C (98.1 ??F) 05/19/2011 11:32 PM E DT Respiratory Rate 18 05/20/2011 4:00 AM EDT Oxygen Saturation 98% 05/20/2011 4:00 AM EDT Inhaled Oxygen Concentration - - Weight - - Height - - Body Mass Index - - documented in this encounter Discharge Instructions * Discharge Instructions* Alfredo Romo III, MD - 05/20/2011 3:21 AM EDT Orthopaedic Discharge Instructions: Activity: Non-Weight Bearing Left Upper Extremity -Keep elevated, especially for the next 72 hours Medication: Keflex one tablet three times daily x 10 days Oxycodone 1-2 tablets every 4 hours as needed for pain Tylenol 1000mg every 8 hours as needed for pain Bathing: -Sponge bath only Dressing: Keep dressing in place until follow up Follow up: -3-4 days with BRIDGETT Carreon in the Orthopaedic Clinic -Call if you have increased drainage from wounds, pain that is not controlled with the medication above or if you have any other questions or concerns. [phone] documented in this encounter Medications at Time of Discharge Medication Sig Dispensed Refills Start Date End Date cephALEXin (KEFLEX) 500 mg capsule Take 1 capsule by mouth 3 times daily for 10 days. 30 capsule 0 05/20/2011 05/30/2011 OXYcodone (ROXICODONE) 5 mg immediate release tablet Take 1-2 tablets by mouth every 4 hours as needed for Pain. 40 tablet 0 05/20/2011 07/22/2011 documented as of this encounter ED Notes * Jaye Qureshi RN - 05/20/2011 4:02 AM EDT Verbalizes clear understanding of all discharge instructions. * Jaey Qureshi RN - 05/20/2011 4:00 AM EDT Wound repair complete, iv ancef and morphine dose given. For discharge. Will wait here for ride to arrive later this am. * Alfredo Romo III, MD - 05/20/2011 3:28 AM EDT DATE OF SERVICE: 05/20/2011 RESPONSIBLE ATTENDING: Blair Bowman M.D. REASON FOR VISIT: Left hand pain. HISTORY OF PRESENT ILLNESS: Mr. Ortez is a very pleasant, left-hand dominant gentleman who presented to [facility] for injuries to his left long and ring finger, which he sustained while making napkin ring holders using a plainer. He states that he was on his second last napkin ring and the wood slipped out and his involved fingers went through the plainer. He, at that time, went to his local emergency department where they gave tetanus prophylaxis and 1 g of Ancef, and then he was sent here because they did not have orthopedic or hand coverage. The patient arrived here comfortable and in no acute distress with bandage on his hand. PAST MEDICAL HISTORY: Hypertension and sciatica. MEDICATIONS: Terazosin. ALLERGIES: NO KNOWN DRUG ALLERGIES. REVIEW OF SYSTEMS: Negative other than stated above. SOCIAL HISTORY: He is also on security disability. Denies any alcohol or tobacco use. PHYSICAL EXAMINATION: On physical exam, this is a well-appearing gentleman in no acute distress. Heart has regular rate and rhythm. Lungs are clear to auscultation. Pupils are equal, round, and reactive to light. Cranial nerves II-XII are grossly intact. Head is atraumatic, normocephalic. Skin is warm and dry. Evaluation of his left upper extremity reveals that there are ulnar-oblique lacerations of his ring and long fingers that disrupts the majority of the nail and nail bed and exited proximally at the level of the DIP joint. There does not appear to be any gross contamination. He does have sensation on the radial aspect of his long finger that is slightly diminished on the radial side of his ring finger distal to his DIP joint. Radial pulses 2+. No other injuries identified. IMAGING: Three views of his hand were obtained from [place] which show ulnar-oblique comminuted distal phalanx fractures with the ring finger being more proximally involved, but not disrupting the DIP joint. PROCEDURE PERFORMED: His hand was prepped and draped in sterile fashion using Betadine solution. I then placed digital nerve blocks through the ring and long fingers using 1% lidocaine. Once adequate analgesia was obtained, ring tourniquets were applied. I initially started with the ring finger, where the remainder of the nail was removed being careful to removing the entire germinal matrix. Using a rongeur, the remainder of the distal phalanx was removed leaving behind no residual bone. Wound edges were then freshened and the radial-sided flap was brought over to cover the middle phalanx. This was then sutured into place using 3-0 chromic suture after the wound was thoroughly irrigated with normal saline. I then turned my attention to the long finger, where again the wound was thoroughly irrigated, and my initial step was to remove the remaining nail again making sure that all germinal matrix was removed. Wound edges again were freshened and some of the edges debulked to allow for appropriate thickness coverage of the radial flap. I then used a rongeur to rongeur back the majority of the distal phalanx attempting to spare the insertion of the FDP tendon on the remainder of the distal phalanx. I asked the patient to flex his finger and it was apparent that the patient was able to flex his DIP joint. I then proceeded again to irrigate the wound thoroughly with normal saline and then closed the radial-based flap using 3-0 and 4-0 chromic suture. Tourniquets were then let down at 1 hour and 15-minute time and his fingers became re-perfused and pink with some mild bleeding at the wound edges. Bacitracin, Adaptic, 4x4, and tube gauze were used to dress the wound after cleansing his skin. He received another 1 g of Ancef after the procedure. The patient tolerated the procedure well and no complaints. ASSESSMENT AND PLAN: Mr. Ortez is a very pleasant, 60-year-old, [id number]-[id number] gentleman who suffered partial amputations of his left ring and long fingers. Given the fracture pattern remaining tissue, I did completion amputations at distal interphalangeal level of his ring finger and then through the proximal third of his distal phalanx of his long finger. He was able to flex his distal interphalangeal joint as best I could evaluate at the end of the procedure; although, somewhat difficult given the short stump and the flap. The one concern I would have would be the viability of the radial-based flap on the ring finger, which will need to be monitored over the course of the next few weeks as it will declare itself. I was not able to have enough tissue to do a [id number] based closure on the ring finger given the proximity of the laceration and tissue loss; however, i did not want to disrupt anymore bone, trying to keep as much length as possible. That being said, the patient tolerated the procedure well and has been instructed to strictly elevate his hand especially over the next 72 hours. He has been given a prescription for Keflex for 10 days as well as prescription for oxycodone. He will follow up in the upper extremity clinic in four days to see Mr. Mike Proctor for a wound check. All the patient's questions and concerns were answered. The patient called the family member who will arrive to return him to [place]. * Jaye Qureshi RN - 05/20/2011 2:40 AM EDT Orthopedics at bedside, wound repair in progress. * Jaye Qureshi RN - 05/20/2011 1:[address] Romo at bedside for wound repair. documented in this encounter Miscellaneous Notes * Miscellaneous - Provider, Scanning - 05/20/2011 2:03 AM EDT * ED Triage - Jaye Qureshi RN - 05/19/2011 11:33 PM EDT Pt arrives from OSH where was treated for extensive injury to fingers left hand as he was using plane saw. Tetanus updated, given iv antibiotic and pain med prior to leaving osh; here for further eval from surgery services. documented in this encounter Plan of Treatment Scheduled Procedures Name Priority Associated Diagnoses Date/Ti ny EGD, UPPER GI ENDOSCOPY (WRV U 2.09) Esophageal dysphagia Encounter for colorectal cancer screening COLONOSCOPY, DIAGNOSTIC (WRV U 3.26) Esophageal dysphagia Encounter for colorectal cancer screening documented as of this encounter Procedures Procedure Name Priority Date/Time Associated Diagnosis Comments BMP W/FASTING GLUCOSE Routine 05/19/2011 11:50 PM EDT DIFFERENTIAL, AUTOMATED Routine 05/19/2011 11:50 PM EDT ABO/RH TYPING Routine 05/19/2011 11:50 PM EDT APTT Routine 05/19/2011 11:50 PM EDT PROTHROMBIN TIME Routine 05/19/2011 11:5 0 PM EDT CBC (WITH DIFF) Routine 05/19/2011 11:50 PM EDT ANTIBODY SCREEN Routine 05/19/2011 11:50 PM EDT TYPE AND SCREEN ([facility]ALIL[facility]) Routine 05/19/2011 11:45 PM EDT documented in this encounter Results * (ABNORMAL) REFLEX LAB-A-DIFF (05/19/2011 11:50 PM EDT) Neutrophil % 84.0(H) 34.0 - 71.0 % [facility] Neutrophil Absolute 8.33(H) 1.50 - 6.30 x10(3)/mc L [facility] Lymph % 11.8(L) 19.0 - 53.0 % [facility] Lymphocytes Abs 1.2 1.0 - 3.6 x10(3)/mc L [facility] Monocyte % 3.5(L) 4.0 - 13.0 % [facility]ILL[facility]NI[facility] Monocyte Abs 0.4 0.2 - 1.0 x10(3)/mc L [facility] Eos % 0.4 0.0 - 7.0 % [facility]ILL[facility]NI[facility] Eosinophils Abs 0.0 0.0 - 0.5 x10(3)/mc L [facility] Basophil % 0.1 0.0 - 2.0 % [facility]ILLENNI[facility] Baso Absolute 0.0 0.0 - 0.2 x10(3)/mc L [facility] Immature Gran % 0.20 0.00 - 0.66 % [facility] Comment: Immature granulocytes(IG's)percentage and absolute count will include metamyelocytes, myelocytes, and promyelocytes. Blood smears from CBCs yielding IG's will be scanned manually for concordance. If this scan disagrees with the automated IG or if promyelocytes are noted, a manual differential will be performed. Immature Gran Absolute 0.02 0.00 - 0.05 x10(3)/mc L [facility] Blood specimen (specimen) 05/19/2011 11:50 PM EDT 05/19/2011 11:58 PM EDT Rafa Castellanos MD HEMATOLOGY ORDERABLE S Performing Organization Address [facility] de Phone Number [facility] * REFLEX LAB-ANTIBODY SCREEN (05/19/2011 11:50 PM EDT) Ab Screen Interp Negative [facility] Expires at [id number] on: [id number] [facility] Blood specimen (specimen) 05/19/2011 11:50 PM EDT 05/19/2011 11:58 PM EDT Rafa Castellanos MD BLOOD BANK LAB ORDER WILLIAM Performing Organization Address [facility] de Phone Number [facility] * REFLEX LAB-ABO/RH TYPING (05/19/2011 11:50 PM EDT) ABORH Type B Pos [facility] Blood specimen (specimen) 05/19/2011 11:50 PM EDT 05/19/2011 11:58 PM EDT Rafa Castellanos MD BLOOD BANK LAB ORDER WILLIAM Performing Organization Address [facility] de Phone Number [facility] * (ABNORMAL) APTT (05/19/2011 11:50 PM EDT) Partial Thromboplastin Time 23(L) 25 - 37 sec [facility] Comment: Decreased clotting times may be caused by improper phlebotomy technique. Recommended therapeutic PTT range for full dose unfractionated heparin is 80-114 seconds. Blood specimen (specimen) 05/19/2011 11:50 PM EDT 05/19/2011 11:58 PM EDT Rafa Castellanos MD HEMATOLOGY ORDERABLE S Performing Organization Address [facility] de Phone Number [facility] * Prothrombin Time (05/19/2011 11:50 PM EDT) Prothrombin Time 13.5 12.3 - 14.7 sec [facility]NI[facility] Comment: [facility] Transfusion Committee Guidelines: INR less than 2.0, PTT less than OR equal to 43.5 seconds, or Fibrinogen greater than or equal to 100 mg/dl indicate adequate procoagulant activity for hemostasis in patients without underlying bleeding disorders. International Normalization Ratio 1.1 0.9 - 1.1 [facility] Blood specimen (specimen) 05/19/2011 11:50 PM EDT 05/19/2011 11:58 PM EDT Rafa Castellanos MD HEMATOLOGY ORDERABLE S Performing Organization Address [facility] de Phone Number [facility] * (ABNORMAL) BMP w/fasting Glucose (05/19/2011 11:50 PM EDT) Glucose Fasting 114(H) 65 - 99 mg/dL [facility] Comment: ?Fasting* Glucose Interpretive Criteria Normal ?65-99 mg/dL Impaired Fasting glucose ?100-125 mg/dL Consistent with Diabetes Mellitus ? >or= 126 mg/dL *Fasting is defined as no caloric intake for at least 8 hours In the absence of unequivocal hyperglycemia a plasma glucose value of >or= 126 mg/dL should be repeated on a subsequent day. Diagnosis and Classification of Diabetes Mellitus, Position Statement from the [place] Diabetes Association. ??Diabetes Care, Volume 33, Supplement 1, Sep 2009 Blood Urea Nitrogen 18 10 - 20 mg/dL [facility]ILLENNI[facility] Creatinine 0.97 0.80 - 1.50 mg/dL [facility]ILL[facility]NI[facility] Sodium 141 135 - 145 mmol/L [facility]ILL[facility]NI[facility] Potassium 4.2 3.5 - 5.0 mmol/L [facility]ILL[facility]NI[facility] Comment: Please note: ??Patients with WBC >100,000 may have falsely elevated Potassium levels. ??For accurate Potassium quantification in these patients send serum separator tube (gold top) for subsequent determinations. ??Contact the Clinical Chemistry Laboratory if there are any questions. Chloride 106 98 - 107 mmol/L [facility] MILLENNI[facility] Carbon Dioxide 24 22 - 31 mmol/L [facility] MILLENNI[facility] Anion Gap 11 5 - 15 mmol/L [facility]ILLENNI[facility] Calcium 8.9 8.5 - 10.5 mg/dL [facility] MILLENNI[facility] Est Glomerular Filtration Rate >60 >=60 [facility] Comment: The National Kidney Disease Education Program (NKDEP) has recommended all laboratories report estimated GFR (eGFR) along with plasma creatinine measurements to assist you with recognition of early kidney disease. Caveats: ??Plasma creatinine should be at steady-state (unchanged within the past week). For patients multiply eGFR by 1.2.MDRD equation has not been validated for pediatric patients and is only valid for patients with age >= 18 years. At present, NKDEP does NOT recommend using the MDRD equation for drug dosing purposes and pharmacists should continue to use their current dosing methods. In addition, numerical eGFR values greater than 60 ml/min/1.73 square meters should be treated as > 60, and not an exact number due to greater inaccuracies at these higher values. Per NKDEP, they classify normal renal function as any GFR >60ml/min/1.73 square meters; chronic kidney disease when GFR <60, and renal failure when GFR <15. ??This calculation may not be valid for patients with atypical muscle mass (very lean or obese), acute renal failure, and in patients with diabetic kidney disease. References: http://nkdep.nih.gov/resources/NKDEP_Suggestn4Labs_0606_508.pdf http://www.kidney.org/professionals/kls/pdf/faq_gfr.pdf Blood specimen (specimen) 05/19/2011 11:50 PM EDT 05/19/2011 11:58 PM EDT Rafa Castellanos MD CHEMISTRY [facility]ABLES [facility] * (ABNORMAL) CBC (with Diff) (05/19/2011 11:50 PM EDT) White Blood Cell 9.9 4.0 - 10.0 x10(3)/mc L [facility] MILLENNI[facility] Red Blood Cell 4.57(L) 4.63 - 6.08 x10(6)/mc L [facility] MILLENNIUM Hemoglobin 14.6 13.7 - 17.5 gm/dL [facility] MILLENNIUM Hematocrit 40.7 40.0 - 51.0 % [facility]ERN[facility] MILLENNIUM Mean Cell Volume 89.1 79.0 - 92.0 fL [facility] MILLENNIUM Mean Cell Hemoglobin 31.9 25.6 - 32.2 pg [facility] MILLENNIUM Mean Cell Hemoglobin Concentration 35.9 32.0 - 36.5 gm/dL [facility] MILLENNIUM Platelet 220 145 - 370 x10(3)/mc L [facility] MILLENNIUM RDW Standard Deviation 41.2 35.0 - 46.0 fL [facility] MILLENNIUM RDW coefficient of variation 12.9 10.9 - 14.4 % [facility] MILLENNIUM Mean Platelet Volume 11.0 9.0 - 12.0 fL [facility]ILL[facility] Blood specimen (specimen) 05/19/2011 11:50 PM EDT 05/19/2011 11:58 PM EDT Rafa Castellanos MD HEMATOLOGY ORDERABLE S [facility] documented in this encounter Visit Diagnoses Diagnosis Amputation of finger tip Traumatic amputation of other finger(s) (complete) (partial), without mention of complication documented in this encounter Administered Medications Inactive Administered Medications - up to 3 most recent administrations Medication Order MAR Action Action Date Dose Rate Site ceFAZolin (ANCEF) 1 gram injection 1 dose, Starting on Fri05/20/11 at 0353, Until Fri05/20/11 at 0400, JAYE QURESHI: Cabinet Override ceFAZolin (ANCEF) injection 1,000 mg 1,000 mg (1 g), Intravenous, ONCE, 1 dose, On Fri05/20/11 at 1100, STAT Given 05/20/2011 4:00 AM EDT 1 g Right Arm morphine 4 mg/mL carpuject 2-4 mg 2-4 mg, Intravenous, EVERY 1 HOUR PRN, Starting on Fri05/20/11 at 0346, Until Fri05/20/11 at 0920, Pain, STAT Given 05/20/2011 3:59 AM EDT 4 mg Right Arm documented in this encounter Active and Recently Administered Medications Times are shown in EDT. Scheduled Medication Order 05/18/2011 05/19/2011 05/20/2011 ceFAZolin (ANCEF) injection 1,000 mg (COMPLETED) 1,000 mg (1 g), Intravenous, ONCE, 1 dose, On Fri05/20/11 at 1100, STAT 0400 (Given - Provid er: Jaye Qureshi RN)1100 (Due) PRN Medication Order 05/18/2011 05/19/2011 05/20/2011 morphine 4 mg/mL carpuject 2-4 mg (CANCELED) 2-4 mg, Intravenous, EVERY 1 HOUR PRN, Starting on Fri05/20/11 at 0346, Until Fri05/20/11 at 0920, Pain, STAT 0359 (Given - Provid er: Jaye Qureshi RN) documented in this encounter Care Teams Golf Teacher Relationship Specialty Start Date End Date Ivanna Huhges APRN PCP - General 05/19/11 09/10/15 documented as of this encounter
--- OUTSIDE RECORDS SUMMARY | 2024-07-19 16:51 | XMS_ITS | Clinical Summary ---
Author Organization [facility] Address [address] [place] [address] Care Team Providers Care Antenna Engineer Name Role Phone Norma Murdock INSTALLATION COORDINATOR Primary Care Provider [phone] Allergies Active Allergy Reactions Criticality Noted Date Comments Lisinopril 07/24/2022 Pantoprazole 07/24/2022 Medications Medication Sig Dispensed Refills Start Date End Date Status terazosin (HYTRIN) 1 mg capsule Take 1 mg by mouth at bedtime. Active albuterol 90 mcg/actuation inhaler Inhale 2 Puffs as directed every 6 hours as needed for Wheezing. Active amlodipine besylate (AMLODIPINE ORAL) Take by mouth. Act steve Active Problems Patient Care Coordination No te Formatting of this note migh t be different from the original. [facility] Memory Program JACQUI scanned to [employer]ISM on: 2018-03-09 Problem Noted Date Diagnosed Date Hypertension 03/14/2018 Overweight 03/14/2018 Renal cell carcinoma (HCC-CMS) 03/14/2018 Anxiety and depression 03/14/2018 Surgical History Surgery Date Site/Laterality Comments TOTAL HIP ARTHROPLASTY COLONOSCOPY TOTAL NEPHRECTOMY Left APPENDECTOMY CATARACT REMOVAL HERNIA REPAIR Medical History Medical History Date Comments Cancer (HCC-CMS) Heart disease Hypertension Chronic kidney disease Family History Medical History Relation Comments Dementia Sister Parkinsonism Sister Relation Status Comments Sister Social History Tobacco Use Types Packs/Day Years Used Date Smoking Tobacco: Former Smokeless Tobacco: Never Tobacco Cessation:Counseling Given: Not Answered Alcohol Use Standard Drinks/Week Comments No 0 (1 standard drink = 0.6 oz pur e alcohol) Interpersonal Safety Answer Date Record ed Physically Hurt Never 04/24/2020 Verbally Threaten Not on file 04/24/2020 Sex and Gender Information Value Date Recorded Sex Assigned at Not on file Gender Identity Male 05/01/2022 15:10 EDT Sexual Orientation Not on file Obstetrics History Last Filed Vital Signs Vital Sign Reading Time Taken Comments Blood Pressure 140/90 03/17/2018 1313 EDT Pulse 80 03/17/2018 1313 EDT Temperature 36.6 ??C (97.9 ??F) 11/07/2022 1048 EST Respiratory Rate - - Oxygen Saturation - - Inhaled Oxygen Concentration - - Weight 95.3 kg (210 lb) 11/07/2022 1048 EST Height 172.7 cm (5' 8) 11/07/2022 1048 EST Body Mass Index 31.93 11/07/2022 1048 EST Plan of Treatment Health Maintenance Due Date Last Done Comments RSV Immunization ( o r 60+ Years) (1 - 1-dose 60+ series) 2010 Fall Risk Screening 03/17/2019 03/17/2018 COVID-19 Vaccine (2022- season) 2023 Hepatitis C Screen Completed 01/25/2021 Procedures Procedure Name Priority Date/Time Associated Diagnosis Comments HEPATITIS C AB W REFLEX TO HCV RNA BY PCR Routine 01/25/2021 8:25 EDT from Last 3 Months or Most Recently Relevant to Health Maintenance Results * HEPATITIS C AB W REFLEX TO HCV RNA BY PCR (01/25/2021 8:25 EDT) Hep C Antibody Negative Negative 01/26/2021 12:04 EDT [facility] Blood VENOUS BLOOD / Unknown 01/25/2021 8:25 EDT 01/25/2021 20:41 EDT Provider Outr Resulting Lab CHEMISTRY & BLOOD GAS ORDERABLES [facility] [address] [place] [address] from Last 3 Months or Most Recently Relevant to Health Maintenance Care Teams Antenna Engineer Relationship Specialty Start Date End Date Norma Murdock FNP [address] [facility] [address] [place] [address] PCP - General 05/01/22
--- OUTSIDE RECORDS SUMMARY | 2024-07-19 16:51 | XMS_ITS | Encounter Summary ---
Author Organization [facility] Address [address] [place] [address] Care Team Providers Care Mill Set Up Name Role Phone Amelia Swanson COMMUTATOR PRESSER- Primary Care Provider + Norma Murdock [facility] Primary Care Provider [phone] Encounter Details Date Type Department Care Team (Late st Contact Info) Description 09/03/2020 Lab Requisition [facility] Pathology & Laboratory Medicine - [address] [phone] Outr Resulting Lab, Provider Social History Tobacco Use Types Packs/Day Years Used Date Smoking Tobacco: Former Smokeless Tobacco: Never Alcohol Use Standard Drinks/Week Comments No 0 (1 standard drink = 0.6 oz pur e alcohol) Interpersonal Safety Answer Date Record ed Physically Hurt Never 04/24/2020 Verbally Threaten Not on file 04/24/2020 Sex and Gender Information Value Date Recorded Sex Assigned at Not on file Gender Identity Male 05/01/2022 15:10 EDT Sexual Orientation Not on file documented as of this encounter Plan of Treatment Not on file documented as of this encounter Procedures Procedure Name Priority Date/Time Associated Diagnosis Comments PSA TOTAL, DIAGNOSTIC Routine 09/01/2020 12:30 EST documented in this encounter Results * PSA TOTAL, DIAGNOSTIC (09/01/2020 12:30 EST) PSA 1.8 0.0 - 6.5 ng/mL 09/04/2020 9:52 EST [facility] Blood VENOUS BLOOD / Unknown 09/01/2020 12:30 EST 09/03/2020 17:45 EST Narrative [facility] - 09/04/2020 9:52 EST NOTE: Serum PSA concentration should not be interpreted as absolute evidence for the presence or absence of malignant disease. Assayed on Siemens ADVIA Ofelia Felizaur XPT using chemiluminescent technology.??Values obtained by using different assay methods cannot be used interchangeably. Provider Outr Resulting Lab CHEMISTRY & BLOOD GAS ORDERABLES [facility] [address] [place] [address] documented in this encounter Visit Diagnoses Not on filedocumented in this encounter Care Teams Mill Set Up Relationship Specialty Start Date End Date Amelia Swanson FNP- PCP - General 11/11/17 04/30/22 Norma Murdock FNP [address] [place] [phone] PCP - General 05/01/22 documented as of this encounter
--- OUTSIDE RECORDS SUMMARY | 2024-07-19 16:51 | XMS_ITS | Referral Summary ---
Author Organization [facility] Address [address] [place] [address] Care Team Providers Care Full Time Babysitter Name Role Phone Norma Murdock SOFTWARE DEVELOPMENT PROJECT MANAGER Primary Care Provider [phone] Allergies Active Allergy Reactions Criticality Noted Date [...] migh t be different from the original. [facility] JACQUI scanned to [facility] on: 2018-03-09 Problem Noted Date Diagnosed Date Hypertension 03/14/2018 Overweight 03/14/2018 Renal cell carcinoma (HCC-CMS) 03/14/2018 Anxiety and depression 03/14/2018 Social History Tobacco Use Types Packs/Day Years [...] 15:10 EDT Sexual Orientation Not on file Last Filed [...] 31.93 11/07/2022 1048 EST Plan of Treatment Not on file Procedures Procedure Name Priority Date/Time Associated Diagnosis Comments HEPATITIS C AB W REFLEX TO HCV RNA BY PCR Routine 01/25/2021 8:25 EDT from Last 3 Months or Most Recently Relevant to Health Maintenance Results * HEPATITIS C AB W REFLEX TO HCV RNA BY PCR (01/25/2021 8:25 EDT) Hep C Antibody Negative Negative 01/26/2021 12:04 EDT [facility] Blood VENOUS BLOOD / Unknown 01/25/2021 8:25 EDT 01/25/2021 20:41 EDT Provider Outr Resulting Lab CHEMISTRY & BLOOD GAS ORDERABLES [facility] [address] [place] [address] from Last 3 Months or Most Recently Relevant to Health Maintenance Care Teams Full Time Babysitter Relationship Specialty Start Date End Date Norma Murdock FNP [address] [facility] [address] [place] [address] PCP - General 05/01/22
--- OUTSIDE RECORDS SUMMARY | 2024-07-19 16:51 | XMS_ITS | Encounter Summary ---
Author Organization [facility] Address [address] [place] [address] Care Team Providers Care Paster Supervisor Name Role Phone Norma Murdock Primary Care Provider [phone] Encounter Details Date Type Department Care Team (Latest Contact Info) Description 11/07/2022 Travel Social History Tobacco Use Types Packs/Day [...] 15:10 EDT Sexual Orientation Not on file COVID-19 Exposure Response Date Recorded In the last 10 days, have yo u been in contact with someone who was confirmed or suspected to have Coronavirus/COVID-19? No / Unsure 11/07/2022 10:35 EST documented as of this encounter Plan of Treatment Not on file documented as of this encounter Visit Diagnoses Not on filedocumented in this encounter Care Teams Paster Supervisor Relationship Specialty Start Date End Date Norma Murdock FNP [address] [place] [phone] PCP - General 05/01/22 documented as of this encounter
--- OUTSIDE RECORDS SUMMARY | 2024-07-19 16:51 | XMS_ITS | Encounter Summary ---
Author Organization [facility] [place] [address] Care Team Providers Care Electric Truck Operator Name Role Phone Ivanna Hughes VERONICA Primary Care Provider [phone] Reason for Referral * Occupational Therapy (Routine) - Closed Specialty Diagnoses / Procedures Referred By Contac t Referred To Contact Occupational Therapy Diagnoses Amputation of finger tip Alfredo Romo III, MD [facility] [place] [address] [facility] [place] [address] Referral ID Status Reason Start Date Expiration Date V isits Requested Visits Authorized [id number] Closed Evaluate and Treat 06/10/2011 12/07/2011 1 1 * Occupational Therapy (Routine) - Complete - Patient Will Schedule External Appt Specialty Diagnoses / Procedures Referred By Contac t Referred To Contact Occupational Therapy Diagnoses Amputation of finger tip Alfredo Romo III, MD [facility] DR [place] [address] Referral ID Status Reason Start Date Expiration Date Visits Requested Visits Authorized [id number] Complete - Patient Will Schedule External Appt Evaluate and Treat 06/10/2011 12/07/2011 1 1 Reason for Visit * Reason Comments Left Hand Pain L ring/small fing am p, doi/dos 05/19/11 Encounter Details Date Type Department Care Team (Late st Contact Info) Description 06/10/2011 3:30 PM EDT Follow-Up Orthopaedics at [facility] [place] [address] Ion Bowman MD [facility] [place] [address] Amputation of finger tip (Primary Dx) Discharge Disposition: Home Social History Tobacco Use Types Packs/Day Years Used Date Smoking Tobacco: Former Cigarettes Q uit: 05/28/1970 Sex and Gender Information Value Date Recorded Sex Assigned at Not on file Gender Identity Not on file Sexual Orientation Not on file documented as of this encounter Progress Notes * Ion Bowman MD - 06/12/2011 4:20 PM EDT I examined Shree Ortez Jr. and I agree with Dr. Romo's note. ION BOWMAN MD * Alfredo Romo III, MD - 06/10/2011 4:13 PM EDT DATE OF SERVICE: 06/10/2011 RESPONSIBLE ATTENDING: Ion Bowman M.D. DATE OF INJURY: 05/19/2011 INJURY: Status post completion amputation of right and small finger, left hand. INTERVAL HISTORY: Mr. Ortez now returns approximately three weeks status post the above intervention. At this point in time, he is doing relatively well with minimal pain. He does state that he is quite hyperextended the digit, especially to the long finger. Denies any fevers or chills. Denies any discharge or drainage from wounds. PHYSICAL EXAMINATION: On exam, the dissolvable sutures are in place. He has good capillary refill with good distal flaps, and sensation is intact to the radial and ulnar aspects of his digits. He has limited flexion of his MCP and PIP joints of the long and middle finger. Radial pulse is 2+. ASSESSMENT AND PLAN: Three weeks status post revision amputations of his left long and ring finger of his left hand, progressing nicely with skin flaps appearing viable. No evidence of infection. At this point in time, we will refer him to occupational therapy to work on range of motion exercises. We will see him back in approximately six to eight weeks. documented in this encounter Plan of Treatment Scheduled Procedures Name Priority Associated Diagnoses Date/Ti me EGD, UPPER GI ENDOSCOPY (WRV U 2.09) Esophageal dysphagia Encounter for colorectal cancer screening COLONOSCOPY, DIAGNOSTIC (WRV U 3.26) Esophageal dysphagia Encounter for colorectal cancer screening Scheduled Referrals Name Type Priority Associated Diagnoses Order Schedule REFERRAL TO OCCUPATIONAL THERAPY Outpatient Referral Routine Amputation of finger tip Ordered: 06/10/2011 REFERRAL TO OCCUPATIONAL THERAPY Outpatient Referral Routine Amputation of finger tip Ordered: 06/10/2011 documented as of this encounter Visit Diagnoses Diagnosis Amputation of finger tip- Primary Traumatic amputation of other finger(s) (complete) (partial), without mention of complication documented in this encounter Care Teams Electric Truck Operator Relationship Specialty Start Date End Date Ivanna Hughes APRN PCP - General 05/19/11 09/10/15 documented as of this encounter
--- OUTSIDE RECORDS SUMMARY | 2024-07-19 16:51 | XMS_ITS | Encounter Summary ---
Author Organization [facility] [address] [place] [address] Care Team Providers Care Complex Manager Name Role Phone Ivanna Hughes APRN Primary Care Provider [phone] Encounter Details Date Type Department Care Team (Late st Contact Info) Description 04/15/2014 7:35 AM EDT - 04/15/2014 11:59 PM EDT Hospital Encounter CT Scan at [facility] [place] [address] CLINIC, DR VALLE Social History Tobacco Use [...] Date Dose Rate Site iohexol (OMNIPAQUE) 350 mg iodine/mL injection 17,500 mg 17,500 mg (50 mL), Oral, ONCE PRN, 1 dose, Starting on Fri04/15/14 at 1001, Until Fri04/15/14 at 0800, Per Protocol, Routine Given 04/15/2014 8:00 AM EDT 17,500 mg iohexol (OMNIPAQUE) 350 mg iodine/mL injection 38,500 mg 38,500 mg (110 mL), Intravenous, ONCE PRN, 1 dose, Starting on Fri04/15/14 at 1001, Until Fri04/15/14 at 1011, Per Protocol, Routine Given 04/15/2014 10:11 AM EDT 38,500 mg documented in this encounter Care Teams Complex Manager Relationship Specialty Start Date End Date Ivanna Hughes APRN PCP - General 05/19/11 09/10/15 documented as of this encounter
--- OUTSIDE RECORDS SUMMARY | 2024-07-19 16:51 | XMS_ITS | Encounter Summary ---
Author Organization [facility] Address [address] [place] [address] Care Team Providers Care Bowling Floor Desk Clerk Name Role Phone Amelia Swanson [facility] Primary Care Provider + Reason for Visit * Reason Comments Memory Loss * Prior Authorization (Routine) - Closed Specialty Diagnoses / Procedures Referred By Ugo maynard Referred To Contact Psychology Diagnoses Memory deficit Amelia Swanson, [address] [address] [facility] Memory Program [address] [place] [id number] Referral ID Status Reason Start Date Expiration Date Visits Re quested Visits Authorized [id number] Closed 2 2 Encounter Details Date Type Department Care Team (Late st Contact Info) Description 03/06/2018 14:00 EDT Office Visit [facility] Memory Program - Medical Office Building [address] [place] [id number] Jennifer Matos PsyD [address] [facility] [address] [place] [address] Memory loss (Primary Dx) Discharge Disposition: Auto Discharge Social History Tobacco Use Types Packs/Day Years Used Date Smoking Tobacco: Never Assessed Sex and Gender Information Value Date Recorded Sex Assigned at Not on file Gender Identity Male 05/01/2022 15:10 EDT Sexual Orientation Not on file documented as of this encounter Discharge Diagnoses Diagnosis R41.3 Other amnesia-R41.3[ICD-10-CM] documented in this encounter Discharge Disposition Disposition Code Departure Means Destination Auto Discharge documented in this encounter Progress Notes * Jennifer Matos, Fredo - 03/06/2018 1400 EDT PSYCHIATRIC INTERVIEW AND NEUROPSYCHOLOGICAL TESTING Shree Ortez was seen for an interview and testing on 03/06/2018. He was referred by CORBY Cardenas and was seen as an outpatient at the Medical Office Building on the [facility] [place] [facility]. PATIENT PROFILE: Mr. Ortez is a 67 year-old, left handed, single, male who was born and raised in [place]. He currently lives by himself in [place], [place]. His mother at 84 years of age secondary to natural causes. His father at 67 years of age after he had undergone a hip replacement. He had 5 brothers and 4 sisters. His oldest brother has been diagnosed with dementia and has a diagnosis of Parkinson's disease. Mr. Ortez left school during his sophomore year and later earned hisGED. He served in the [employer]. 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 According to his medical records, Mr. Ortez's medical history is significant for hypertension and anxiety. He reported several possible closed head injuries, most recently this past winter, but denied experiencing a loss of consciousness during any of them. In October 2017 he was administered a MMSE and earned 26 out of 30 points. HISTORY OF PRESENTING ILLNESS: Mr. Ortez reported changes in his cognitive functioning over the past 2-3 years that have worsened more noticeably in the past few months. He described losing track ofwhat he was saying during conversations. He denied changes in his long-term memory recall. He endorsed short-term memory difficulties, including for recent conversations. He endorsed declines in his prospective memory and checks his written reminders more frequently. He denied changes in his ability to perform previously well-learned behaviors. He endorsed misplacing belongings more frequently. He endorsed word finding difficulty. He reported some hearing declines but denied changes in his receptive language. Changes in his reading, writing, and mathematical abilities were denied. He denied changes in his decision making abilities. Mr. Ortez remains independent in his completion of self-care behaviors. He generally manages his medications without difficulty. He denied changes in his completion of household tasks or meal preparation. He manages his finances without difficulty. He denied changes in his driving abilities. Mr. Ortez described his recent mood as mostly alright. He denied anhedonia. He denied a passive wish or suicidal ideation. He denied a history of clinically significant depression. He endorsed long-standing worry and anxiety. He denied visual or auditory hallucinations. He denied paranoia or delusions. He described his sleep as intermittent and he wakes to use the restroom 3-4 times per night. His daytime energy has slowed. His appetite is reduced but his weight is stable. He consumes alcohol very infrequently. He denied use of illicit substances and tobacco products. Mr. Ortez was unaccompanied to his appointment, therefore, no collateral information was available. BEHAVIORAL OBSERVATION AND MENTAL STATUS EXAMINATION: Mr. Ortez arrived early for his scheduled appointment unaccompanied. He was dressed appropriately for the occasion and weather and demonstrated good grooming and hygiene. He maintained adequate eye contact. He was cooperative and answered questions appropriately. He ambulated independently. He was somewhat slow to rise from his chair. Speech was spontaneous with normal rate, tone, and volume. Receptive language appeared intact. He was observed to be a reliable historian of recent and more distant background information. His affect appeared euthymic. He obtained a score of 4 on the Geriatric Depression Scale, which falls in the nonclinical range. NEUROPSYCHOLOGICAL FINDINGS: Mr. Ortez was administered a battery of neuropsychological tests, evaluating a range of cognitive functions. His performance on these measures is reviewed below. 1. Orientation: He was adequately oriented to person, place, and time. He was able to name the current U.[place]. 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 2. Attention/processing: He could repeat up to 5 digits forward and up to digits backward, which falls in the average range for his age. He was able to complete 4 out of 5 trials of a serial subtraction task. He was able to spell world backwards. His performance on a timed visual scanning and sequencing task fell within the borderline range. 3. Communication skills: His spontaneous speech was clear and intelligible. On confrontation namingitems, he was able to name 26 of 26 pictures and 14 of 14 objects. His semantic fluency performancefell within the average range; he was able to generate 17 animal names in one minute. He was able to follow 7 out of 7 verbal commands. He was able to repeat, read, and write single sentences. 4. Memory functioning: He could correctly recall 3 of 3 words after a brief delay. On a list learning task, he was able to recall 4, 7, and 5 words across three trials. Immediate recall of short stories fell within the average range (63 %ile); 30-minute delayed recall of short stories fell within the average range (25 %ile); recognition performance fell within the average range (26-50 %ile); Immediate recall of visually-presented spatial material fell within the average range (25 %ile); 30-minute delayed recall of visuospatial information fell within the average range (50 %ile); recognition performance fell within the average range (26-50 %ile). 5. Spatial organization skills: His block design reproductions were performed within the average range for his age. On a clock drawing task, he earned 14 out of 15 possible points. He was able to reproduce 5 out of 5 additional geometric designs. 6. Reasoning skills: He correctly solved 2 of 3 word-pair similarities, 1 of 1 functional verbal problems and 1 of 1 proverb interpretations. 7. Index scores: He achieved a score of 30 on the Mini-Mental State Examination (MMSE), which fallsin the normal range, and a score of 5 on the Alzheimer???s Disease Assessment Scale (ADAS), which falls within normal limits. SUMMARY AND IMPRESSION: Mr. Ortez is a 67 year old, left handed, single male who presented with changes in his cognitive functioning over the past 2-3 years with more noticeable changes in the past few months. He reported declines in his short-term memory, prospective memory, misplacing belongingsmore frequently, and word finding difficulty. He denied changes in his ability to independently complete basic or instrumental activities of daily living. During the current evaluation, Mr. Ortez's performance was intact across tasks of auditory attention span, working memory, language, visual spatial processing, and verbal reasoning. He demonstrated a relative weakness on a task of visual processing speed. His performance across tasks of memory consistently fell within the average range and indicated intact encoding, storage, and retrieval of verbal and nonverbal information. Based upon his testing performance and daily functioning, Mr. Ortez does not currently appear to meet criteria for mild cognitive impairment. He should return for repeat testing in order to continue to track and document any changes in his cognitive and adaptive functi oning over time. Mr. Ortez should follow the recommendations of his physicians for managing his cardiovascular riskfactors, including hypertension. He is encouraged to maintain a healthy lifestyle, including through diet, physical activity, good sleep hygiene, and by remaining cognitively and socially engaged. PLAN: Mr. Ortez will be seen for neurological consultation by Cedric Mckenzie MD on 03/17/2018 for the second part of his Memory Program work-up. DIAGNOSIS: Memory Loss (R41.3) TOTAL TIME: 3.0 hrs Time includes 2 hours of [address] performed by a psychologist and 1 hour of [address] performed by a lab technician (this time was separate from that of the psychologist). Jennifer Matos Psy.D. Psychologist - Doctorate Portions of this report have been written using voice recognition software, please disregard errorsin spelling or dictation. documented in this encounter Plan of Treatment Not on file documented as of this encounter Visit Diagnoses Diagnosis Memory loss- Primary documented in this encounter Care Teams Bowling Floor Desk Clerk Relationship Specialty Start Date End Date Amelia Swanson, EMISSION TECHNICIAN- PCP - General 11/11/17 04/30/22 documented as of this encounter
--- OUTSIDE RECORDS SUMMARY | 2024-07-19 16:51 | XMS_ITS | Encounter Summary ---
Author Organization [facility] Address [facility] [address] [place] [address] Care Team Providers Care Berry Planter Name Role Phone Ivanna Hughes APRN Primary Care Provider [phone]- [phone] Reason for Visit * Reason Comments Hand Injury L 11/23 fing amp Encounter Details Date Type Department Care Team (Late st Contact Info) Description 07/22/2011 1:00 PM EDT [place] [address] Blair Bowman MD [facility] [address] [place] [address] Amputation of finger tip (Primary Dx) Discharge [...] as of this encounter Progress Notes * Mike Proctor PA - 07/22/2011 1:18 PM EDT DATE OF SERVICE: 07/22/2011 ATTENDING PHYSICIAN: Blair Bowman M.D. HISTORY OF PRESENT ILLNESS: Mr. Ortez suffered a left long and ring finger amputation through the proximal aspect of the distal phalanx. His date of injury is 05/19/2011. He is doing quite well. He is back to full use of the hand. He does have some pain in the fingertips. He has not been to therapy for any type of stump conditioning, edema control, or desensitization. He was under the impression that the therapist was going to call him, and he did not stop by their office to drop off the prescription. We will correct that today. PHYSICAL EXAMINATION: Otherwise, he is awake, alert, and oriented, no acute distress, resting comfortably in the exam room. His left hand is quite nicely healed to the long and ring finger. He does have some tender points on the long fingertip, but I think that will do quite well with a short course of therapy for some modification. PLAN: I explained this the to him. He understands and agrees. He also asks if he can begin chain-sawing in light of the fact that his lacerations are completely healed and he has no paresthesias, I think that would be reasonable. We will start him on a course of therapy for edema control, stump modification, and desensitization. I will set up a two-month followup. However, he understands that if he feels he is quite well improved, he can cancel that if he feels it unnecessary. His questions are otherwise solicited and answered and he will return if needed. documented in this encounter Plan of [...] complication documented in this encounter Care Teams Berry Planter Relationship Specialty Start Date End Date Ivanna Hughes APRN PCP - General 05/19/11 09/10/15 documented as of this encounter
--- OUTSIDE RECORDS SUMMARY | 2024-07-19 16:51 | XMS_ITS | Encounter Summary ---
Author Organization [facility] Address [address] [place] [address] Care Team Providers Care Conductor Freight Name Role Phone Norma Murdock ELECTRIC RAZOR MECHANIC Primary Care Provider [phone] Reason for Visit * Reason Comments New Patient Visit Feeling of fullness in throat getting worse. Started 2011 * Referral (Routine) - Authorization Not Required Specialty Diagnoses / Procedures Referred By Ugo maynard Referred To Contact Diagnoses Dysphagia Harjit Mcneil, RPA [address] [place] [address] [facility] [address] [place] [id number] Referral ID Status Reason Start Date Expiration Date Visits Requested Visits Authorized [id number] Authorization Not Required 1 1 Encounter Details Date Type Department Care Team (Late st Contact Info) Description 11/07/2022 10:50 EST Office Visit [facility] [place] [facility] [address] [place] [address] Tobias Bell MD [address] [place] [address] [address] Laryngeal edema (Primary Dx); LPRD (laryngopharyngeal reflux disease) Social History Tobacco Use Types Packs/Day Years [...] 10:35 EST documented as of this encounter Last Filed Vital Signs Vital Sign Reading Time Taken Comments Blood Pressure - - Pulse - - Temperature 36.6 ??C (97.9 ??F) 11/07/2022 1048 EST Respiratory Rate - - Oxygen Saturation - - Inhaled Oxygen Concentration - - Weight 95.3 kg (210 lb) 11/07/2022 1048 EST Height 172.7 cm (5' 8) 11/07/2022 1048 EST Body Mass Index 31.93 11/07/2022 1048 EST documented in this encounter Progress Notes * Tobias Bell MD - 11/07/2022 1050 EST CHIEF COMPLAINT: Dysphagia HPI: 72-year-old male with a long history of dysphagia status post previous work-up at [facility] with esophageal manometry showing esophageal spasms. He was started on a calcium channel georgi. He was unable to tolerate proton pump inhibitor therapy. He continues to complain of fullness and feeling of mucus or foreign body sensation in the throat. This is mild severity constant no known modifying factors. Past Medical History: Diagnosis Date ??? Cancer ([facility]) (HCC) ??? Chronic kidney disease ??? Heart disease ??? Hypertension Past Surgical History: Procedure Laterality Date ??? APPENDECTOMY ??? CATARACT REMOVAL ??? COLONOSCOPY ??? HERNIA REPAIR ??? TOTAL HIP ARTHROPLASTY ??? TOTAL NEPHRECTOMY Left Allergies Allergen Reactions ??? Lisinopril ??? Pantoprazole Outpatient Medications Marked as Taking for the 11/07/22 encounter (Office Visit) with Tobias Bell MD Medication Sig Dispense Refill ??? albuterol 90 mcg/actuation inhaler Inhale 2 Puffs as directed every 6 hours as needed for Wheezing. ??? amlodipine besylate (AMLODIPINE ORAL) Take by mouth. ??? terazosin (HYTRIN) 1 mg capsule Take 1 mg by mouth at bedtime. Family History Problem Relation Age of Onset ??? Parkinsonism Sister ??? Dementia Sister Social History Socioeconomic History ??? Marital status: Single Spouse name: Not on file ??? Number of children: Not on file ??? Years of education: Not on file ??? Highest education level: Not on file Occupational History ??? Not on file Tobacco Use ??? Smoking status: Former ??? Smokeless tobacco: Never Substance and Sexual Activity ??? Alcohol use: No ??? Drug use: No ??? Sexual activity: Not on file Other Topics Concern ??? Not on file Social History Narrative ??? Not on file Social Determinants of Health Financial Resource Strain: Not on file Food Insecurity: Not on file Transportation Needs: Not on file Physical Activity: Not on file Stress: Not on file Social Connections: Not on file Housing Stability: Not on file REVIEW OF SYSTEMS: Significant for weakness shortness of breath wheezing dizziness numbness light sensitivity chest pain muscle joint and back pain congestion hearing loss sore throat kidney problemsotherwise negative for complete review of all systems PHYSICAL EXAM: Temp 36.6 ??C (97.9 ??F) Ht 172.7 cm (68) Wt 95.3 kg (210 lb) BMI 31.93 kg/m?? General: Well-developed well-nourished elderly pleasant cooperative adult male no acute distress. Normal voice. The face is normal without lesions. Facial strength is symmetric. Eye exam is normal. Ears: External ears are normal canals are clear tympanic membranes are intact. Hearing is decreased. Nose: Nasal dorsum is midline the airway is patent. Oral cavity: Lips tongue floor mouth and buccal mucosa are normal. Posterior pharynx is clear. Neck: No pathologic lymphadenopathy trachea is midline thyroid is normal. Chest is clear to auscultation. Heart regular rate and rhythm. Procedure: Fiberoptic laryngoscopy was performed with topical anesthesia. This reveals some nasal septal deviation without obstruction. The middle meatus is clear bilaterally. The nasopharynx is clear. The base of tongue epiglottis and vallecula piriform sinuses false vocal cords and true vocal cords are within normal limits. There is good bilateral true vocal cord motion. There is mild to moderate posterior laryngeal edema in the postcricoid area. No cysts polyps nodules or tumor. IMPRESSION: Foreign body sensation and posterior laryngeal edema consistent with laryngal pharyngeal reflux disease. PLAN: LPR instructions were given to the patient and discussed in detail. This includes dietary andbehavioral modifications as well as medical therapy which may include antacids H2 georgi and Gaviscon. The average course of treatment is 4 months. Follow-up with ENT as needed. December 17, 2022/10:52 Patient: Shree Otrez Scope #: [id number] Has this been documented in the log: Yes documented in this encounter Plan of Treatment Not on file documented as of this encounter Visit Diagnoses Diagnosis Laryngeal edema- Primary Edema of larynx LPRD (laryngopharyngeal reflux disease) Other diseases of larynx documented in this encounter Care Teams Conductor Freight Relationship Specialty Start Date End Date Norma Murdock FNP [address] [facility] [address] [place] [phone] PCP - General 05/01/22 documented as of this encounter
--- OUTSIDE RECORDS SUMMARY | 2024-07-19 16:51 | XMS_ITS | Encounter Summary ---
Author Organization [facility] Address [facility] [address] [place] [address] Care Team Providers Care Egg Producer Name Role Phone Ivanna Hughes APRN Primary Care Provider [phone] Reason for Visit * Reason Comments Hand Injury Encounter Details Date Type Department Care Team (Late st Contact Info) Description 06/26/2011 3:30 PM EDT Follow-Up Occupational Therapy at [facility] [place] [address] Alejandro Roche, OT [facility] [place] [address] Unknown None Amputation of finger tip Discharge Disposition: Home Social History Tobacco Use Types Packs/Day Years Used Date Smoking Tobacco: Former Cigarettes Q uit: 05/28/1970 Sex and Gender Information Value Date Recorded Sex Assigned at Not on file Gender Identity Not on file Sexual Orientation Not on file documented as of this encounter Progress Notes * Alejandro Roche, OT - 06/26/2011 3:41 PM EDT OCCUPATIONAL THERAPY DISCHARGE NOTE REFERRAL SOURCE: Blair Bowman MD DIAGNOSIS: 1. Amputation of finger tip (886.0N) DATE OF INJURY: 05/19/2011 DATE OF SURGERY: 05/19/2011 NEXT MD FOLLOW UP: 6 weeks. TOTAL TREATMENT TIME: 16 Minutes TIMED CODE TREATMENT TIME: Therapeutic exercises 30 minutes CURRENT HISTORY: Shree Ortez Jr. is a 61 y.o. year old male who sustained lacerations to the distal portion of the long and ring finger of the left hand. The patient underwent surgery on 05/19/2011for an amputation of the distal phalanx. Shree Ortez Jr. was seen by Dr. Bowman for evaluation and referred to Occupational Therapy for splint fabrication completed last visit He is seen today inclinic for initiation of range of motion. Mechanism of Injury: Patient sustained his injury from a jointer injury. Patient has had no prior problems with this area in the past. Current Symptoms: Patient presents with pain, swelling and stiffness. 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 identifies difficulty with the following tasks: 1.) Opening Jar 0/10 2.) Knife 0/10 *Patient Specific Functional Scale (PSFS): 0/10 (unable to perform) to 10/10 (Able to perform without difficulty). TREATMENT TODAY: There ex: 30 minutes -debridement of the ring and middle finger -stump wrapping techniques -desensitization techniques ASSESSMENT: Shree Ortez Jr. displayed a significant amount of range of motion of the digits intoflexion and extension. There was moderate amounts of eschar which was debrided without any difficulty. The new skin underneath is all healthy tissue without any signs of infection. The digits are still somewhat hypersensitive but the patient continues to practice desensitizing techniques. Tag Meter Operator Goals (to be met by discharge): Shree Ortez Jr. will complete activities of daily living independently at a 10/10 level. Shree Ortez Jr. will be able to resume all occupational roles independently without restriction. Short Term Goals: 1. Shree Ortez Jr. will be independent with home exercises as evident with demonstration in therapy with 100% compliance daily. 2. Shree Ortez Jr. will be compliant with splint use 100% of the time when directed for proper protection to minimize pain and symptoms. PLAN: Shree Ortez Jr. would like to be seen by a hand therapist closer to home. The patient has been given a referral and number of a clinic in [place], [place]. (X) Shree Ortez Jr. participated in evaluation and treatment process and agrees to treatment interventions. documented in this encounter Plan of Treatment Scheduled Procedures Name Priority Associated Diagnoses Date/Ti nm EGD, UPPER GI ENDOSCOPY (WRV U 2.09) Esophageal dysphagia Encounter for colorectal cancer screening COLONOSCOPY, DIAGNOSTIC (WRV U 3.26) Esophageal dysphagia Encounter for colorectal cancer screening documented as of this encounter Visit Diagnoses Diagnosis Amputation of finger tip Traumatic amputation of other finger(s) (complete) (partial), without mention of complication documented in this encounter Care Teams Egg Producer Relationship Specialty Start Date End Date Ivanna Hughes APRN PCP - General 05/19/11 09/10/15 documented as of this encounter
--- OUTSIDE RECORDS SUMMARY | 2024-07-19 16:51 | XMS_ITS | Encounter Summary ---
Author Organization [facility] Address [address] [place] [address] Care Team Providers Care Minister Name Role Phone Norma Murdock DRILL PRESS SET UP OPERATOR RADIAL Primary Care Provider [phone] Reason for Visit * Reason Comments Eye Problem Encounter Details Date Type Department Care Team (Late st Contact Info) Description 10/23/2022 13:00 EST Office Visit [facility] Ophthalmology - [address] [address] Mahogany Caraballo MD [address] [facility], [address] [place] [address] Social History Tobacco Use Types Packs/Day Years [...] as of this encounter Progress Notes * Mahogany Caraballo MD - 10/23/2022 1300 EST No chief complaint on file. Comments Return in about 3 months (around 10/24/2022) for Undilated, HVF 24-2 SS, REFRACT- include near for Optic Nerve Cupping. Currently using AT's prn. Left eye pain intermittently. No recent flashes or floaters. Vision seems worse still x past months. He is having trouble reading. HPI The patient is a 72 y.o. male who notes left eye pain since last summer, that is sometimes excruciating. Right Eye: Blurred Vision Left Eye: Blurred Vision, Pain/Soreness Visual Aid: Glasses Current Rx Age Location: Both eyes Pain: 0 - No pain Quality: Blurry Severity: Mild Duration: Months Timing: Fluctuates Lasts: Continuous Context: Return in about 3 months (around 10/24/2022) for Undilated, HVF 24-2 SS, REFRACT- include near for Optic Nerve Cupping. Modifying factors: Currently using AT's prn. Left eye pain intermittently. Associated Signs & Symptoms: No recent flashes or floaters. Vision seems worse still x past months. He is having trouble reading. Attestation: ROS Constitutional: NL ENT/Mouth NL Cardiovascular: High Blood Pressure Respiratory: NL Gastrointestinal: NL Genitourinary: NL Musculoskeletal: NL Integumentary: NL Neurologic: NL Psychiatric: NL Endocrine: NL Hematologic: NL Immunologic: Drug Allergy Music Leader: Exposures: None Other: Attestation: Allergies include: Lisinopril and Pantoprazole Patient Active Problem List Diagnosis ??? Hypertension ??? Overweight ??? Renal cell carcinoma (HCC-CMS) (HCC) ??? Anxiety and depression Outpatient Medications Marked as Taking for the 10/23/22 encounter (Office Visit) with Mahogany Caraballo MD Medication Sig ??? albuterol 90 mcg/actuation inhaler Inhale 2 Puffs as directed every 6 hours as needed for Wheezing. ??? amlodipine besylate (AMLODIPINE ORAL) Take by mouth. ??? terazosin (HYTRIN) 1 mg capsule Take 1 mg by mouth at bedtime. Past Medical History: Diagnosis Date ??? Cancer (HCC-CMS) (HCC) ??? Chronic kidney disease ??? Heart disease ??? Hypertension Past Surgical History: Procedure Laterality Date ??? APPENDECTOMY ??? CATARACT REMOVAL ??? COLONOSCOPY ??? HERNIA REPAIR ??? TOTAL HIP ARTHROPLASTY ??? TOTAL NEPHRECTOMY Left Family History Problem Relation Age of Onset ??? Parkinsonism Sister ??? Dementia Sister Patient reports that he has quit smoking. He has never used smokeless tobacco. He reports that he does not drink alcohol and does not use drugs. Recent HbA1c: No results found for: HGBA1C Base Eye Exam Visual Acuity (Snellen - Linear) Right Left Dist cc 20/50 -1 20/30 -2 Dist ph cc 20/40 -2 Near cc J3 J3 Correction: Glasses Tonometry (Applanation, 13:03) Right Left Pressure 19 15 Pupils Dark Light Right 3 2.5 Left 3 2.5 Neuro/Psych Oriented x3: Yes Mood/Affect: Normal Slit Lamp and Fundus Exam External Exam Right Left External Normal Normal Slit Lamp Exam Right Left Lids/Lashes 2+ Blepharitis 2+ Blepharitis Conjunctiva/Sclera 1+ Injection where exposed few concretions, pinguecula laterally Cornea poor tear film where exposed poor tear film where exposed Anterior Chamber Deep and quiet Deep and quiet Iris Round and reactive Round and reactive Lens Posterior chamber intraocular lens Posterior chamber intraocular lens Refraction Wearing Rx Sphere Cylinder Purcell Add Right -1.50 +1.50 020 +2.50 Left -0.50 +0.50 000 +2.50 Manifest Refraction Sphere Cylinder Purcell Dist VA Add Near VA Right -0.75 +1.25 020 20/25 +2.75 J1 Left -0.50 +0.25 180 20/25 +2.75 J1 MR seems same as glasses today DIAGNOSTIC TESTS: Joyce VF 24-2 Standard - OU - Both Eyes VISUAL FIELD TEST Report Test: HVF 24-2 Indications: GS Findings: Right Eye: Left Eye: Decreased total deviation FL 3/15, non-specific Original tests to be found in patients shadow chart Impact on Plan: Will follow IMPRESSION & PLAN: Mr. Ortez is a 72 year old complaining of left eye pain almost all of his waking hours since the summer of 2021, and sometimes the pain is excruciating. He has not had unexplained weight loss. He had all of his teeth removed in 2018, which may be when he had his last dental exam. No prior shinglesin the area. Both eyes are a little dry, but the right more than the left, which does not go with his complaint. There is no suggestion of an inflammatory condition visible on eye exam. - Optic nerve cupping 0.8 with recorded stability in testing from [id number] - PCIOLs ? PLAN: ?? Dear Harjit Mcneil, I am sending you this note because I do not have an explanation for his left eye pain, which appears to be non-ophthalmic in origin. Places you might look to explain his pain might include an imagingstudy of his head and orbits, given the renal cell carcinoma history (might there be metastasis?), or with a dentist in case there is something infected where he formerly had teeth. ?Sincerely, Mahogany Caraballo MD PCP is Harjit Mcneil at [facility] rv six months for rnfl, vf sf and color ?? 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 I have also reviewed the patient's medications, allergies, and problem list. I performed my own HPI and have reviewed the tech's ROS as well. I personally completed this exam myself. Mahogany Caraballo MD I am scribing for Dr. Mahogany Caraballo while she is personally performing the service. Signature: DARRYL Katz The patient was instructed to call our office or go to emergency room if worse vision, worse symptoms, or new/other concerns arise. documented in this encounter Plan of Treatment Not on file documented as of this encounter Procedures Procedure Name Priority Date/Time Associated Diagnosis Comments JOYCE VF 24-2 STANDARD - OU - BOTH EYES Routine 10/23/2022 14:05 EST Optic nerve cupping of both eyes documented in this encounter Results * JOYCE VF 24-2 STANDARD - OU - BOTH EYES (10/23/2022 14:05 EST) Narrative [facility] OPHTHALMOLOGY - 10/23/2022 14:05 EST Table formatting from the original result was not included. 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 Therapy completed 10/23/2022 documented as of this encounter Eye Exam Visual Acuity (Snellen - Linear) Right eye Left eye Dist cc 20/50 -1 20/30 -2 Dist ph cc 20/40 -2 Near cc J3 J3 Correction: Glasses Tonometry (Applanation, 13:03) Right eye Left eye Pressure 19 15 Pupils Dark Light Right eye 3 2.5 Left eye 3 2.5 Neuro/Psych Oriented x3: Yes Mood/Affect: Normal External Exam Right eye Left eye External Normal Normal Slit Lamp Exam Right eye Left eye Lids/Lashes 2+ Blepharitis 2+ Blepharitis Conjunctiva/Sclera 1+ Injection where exposed fe w concretions, pinguecula laterally Cornea poor tear film where exposed poo r tear film where exposed Anterior Chamber Deep and quiet Deep and quiet Iris Round and reactive Round and duran ctive Lens Posterior chamber in traocular lens Posterior chamber intraocular lens Wearing Rx Sphere Cylinder Purcell Add Right eye -1.50 +1.50 020 +2.50 Left eye -0.50 +0.50 000 +2.50 Manifest Refraction Sphere Cylinder Purcell Dist VA Add Near VA Right eye -0.75 +1.25 020 20/25 +2.75 J1 Left eye -0.50 +0.25 180 20/25 +2.75 J1 MR seems same as glasses today Care Teams Minister Relationship Specialty Start Date End Date Norma Murdock FNP [address] [facility] [address] [place] [phone] PCP - General 05/01/22 documented as of this encounter
--- OUTSIDE RECORDS SUMMARY | 2024-07-19 16:51 | XMS_ITS | Encounter Summary ---
Author Organization [facility] Address [address] [place] [id number] Care Team Providers Care Director Of Market Analysis Name Role Phone Amelia Swanson [facility] Primary Care Provider + Reason for Visit * Reason Comments Memory Loss * Prior Authorization (Routine) - Closed Specialty Diagnoses / Procedures Referred By Ugo maynard Referred To Contact Psychology Diagnoses Memory deficit Amelia Swanson, [address] [address] [facility] [address] [place] [address] Referral ID Status Reason Start Date Expiration Date Visits Re quested Visits Authorized [id number] Closed 2 2 Encounter Details Date Type Department Care Team (Late st Contact Info) Description 03/17/2018 13:00 EDT Office Visit [facility] - Medical Office Building [address] [place], [place] [id number] Cedric Mckenzie MD [address] [place] [address] [facility], [address] [place] [address] Memory loss (Primary Dx) Social History Tobacco Use Types [...] EDT Pulse 80 03/17/2018 1313 EDT Temperature - - Respiratory Rate - - Oxygen Saturation - - Inhaled Oxygen Concentration - - Weight - - Height - - Body Mass Index - - documented in this encounter Progress Notes * Wm Jake Mckenzie MD - 03/17/2018 1300 EDT The remainder of this office note has been dictated. ROS: Constitutional:Yes, Night sweats Breathing Problems: Yes, Wheezing Vision: No Endocrine: No Ears/Nose/Throat: Yes, Trouble swallowing Blood/Lymph:No Heart Problems:Yes, Shortness of breath Skin:No Stomach or Bowel Problems: No Psychiatric: Yes, Sadness Bladder Problems: Yes, Frequency Sleep: Yes, Staying asleep Muscle/Joint: Yes, Pain, Cramping, Joint pain or swelling Other (Specify): No Neurological Symptoms: Yes, Headache, Problem with memory I personally reviewed this data with the patient and/or family Cedric Mckenzie M.D. 03/17/2018 documented in this encounter Consult Notes * Wm Jake Mckenzie MD - 03/17/2018 0000 EDT [facility] CONSULTATION - 03/17/2018 REASON FOR CONSULTATION: The patient's concern about memory symptoms. CONSULTATIVE SOURCE: I was asked to see this patient in consultation by CORBY Cardenas. INFORMANTS: Mr Ortez as well as records provided for review. PATIENT PROFILE: Shree Ortez is a 67-year-old white, left-handed man, currently living by himself in [place]. Mr Ortez has never and has no children. He was born and raised in [place]. He completed high school by earning a GED. 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 Psychiatric history is generally negative. ALLERGIES: No known drug allergies. MEDICATIONS: Terazosin 1 mg. Tylenol as needed. Albuterol inhaler as needed. HISTORY OF PRESENT ILLNESS: Mr Ortez reported changes in his cognitive functioning over the past 2-3 years that have worsened more noticeably in the past few months. He described losing track of what he was saying during conversations. He denied changes in his long-term memory recall. He endorsed s hort-term memory difficulties, including for recent conversations. He endorsed declines in his prospective memory and checks his written reminders more frequently. He denied changes in his ability toperform previously well-learned behaviors. He endorsed misplacing belongings more frequently. He endorsed word finding difficulty. He reported some hearing declines but denied changes in his receptive language. Changes in his reading, writing, and mathematical abilities were denied. He denied changes in his decision making abilities. ?? Mr Ortez remains independent in his completion of self-care behaviors. He generally manages his medications without difficulty. He denied changes in his completion of household tasks or meal preparation. He manages his finances without difficulty. He denied changes in his driving abilities. ?? Mr Ortez described his recent mood as mostly [...] use of illicit substances and tobacco products. MEDICAL HISTORY: Episodic anxiety or depression, hypertension, renal cell carcinoma status post left nephrectomy, and being overweight. Mr Ortez has had total hip replacement, colonoscopy, total nephrectomy, appendectomy, cataract removal and hernia repair. He is a former smoker. He currently drinks no alcohol. REVIEW OF SYSTEMS: A 14-system inventory was completed and reviewed at the time of the evaluation. No symptoms in need of additional medical assessment were identified, and the template can be found in the progress note associated with this encounter. FAMILY HISTORY: Mr Ortez indicates that his mother at the age of 84 secondary to natural causes. His father at the age of 67 following a hip replacement. He is one of 10 children. One of his sisters is secondary to colon cancer. He has an older brother who has been diagnosed with Parkinson disease and may be developing dementia. There is no additional family history of dementia. PHYSICAL EXAMINATION: General: The blood pressure in the left upper extremity while sitting was 140/90. Pulse was 80 and regular. Weight was not determined; however, Mr Ortez appeared overweight. The patient appeared his stated age, was in no acute distress, and was cooperative for the interview and examination. Grooming and hygiene were unremarkable. There were no hallucinations, delusions or evidence of depression. Carotid bruits were not heard. Cardiac exam revealed no abnormalities and lung webber were clear. Examination of head and neck functions revealed no thyromegaly and no evidence of lymph nodes. The throat was clear as were the eardrums. Extremities were nontender, as were joints. The skin was clear. NEUROLOGIC: The Hachinski ischemic score was 1. Cranial nerve examination revealed the following. Pupils were equal and reactive to light and accommodation. EOMs were full without nystagmus. Webber were full to confrontation. The face was symmetric at rest and moved symmetrically. Jaw power was full and there was no evidence of weakness of the tongue or fasciculations. Shoulder shrugging was full. Motor exam revealed full strength, no abnormalities of tone and normal bulk. No involuntary movements were noted. Reflexes were 2+ throughout with downgoing toes. Gross sensory examination to pin and cotton was unremarkable. Coordination as tested by finger to nose, rapid rhythmic alternating movements was normal. Station and gait were unremarkable. The was unremarkable. ADDITIONAL PERTINENT INFORMATION: Mr Ortez underwent a CT scan of the brain performed on 03/06/2018 and this showed no abnormalities. Recent laboratory testing germane to a memory evaluation was nonspecific or unremarkable. ASSESSMENT: Mr Ortez scored 30 on the Mini-Mental State Exam and 5 on the Alzheimer's Disease Assessment Scale. These are both normal scores. Testing across a broad range of cognitive domains showedno deficits and Mr Ortez's history is not particularly concerning. I will take the opportunity today to reassure him and I do not feel there is need for followup at this time. PLAN: 1. I met with Mr Ortez for 30 minutes of [id number] conversation and discussion, with more than 50% of that time used for counseling and coordination of care. 2. I provided my assessment as above. 3. I addressed questions. 4. No followup planned at this time. Cedric Mckenzie MD 01 32 PM - Cedric Mckenzie MD ln Dictation ID: [id number] cc: [facility], [address], [place] [address] documented in this encounter Plan of Treatment Not on file documented as of this encounter Visit Diagnoses Diagnosis Memory loss- Primary documented in this encounter Historical Medications * This list may reflect changes made after this encounter. Medication Sig Dispensed Refills Start Date End Date albuterol 90 mcg/actuation inhaler Inhale 2 Puffs as directed every 6 hours as needed for Wheezing. terazosin (HYTRIN) 1 mg capsule Take 1 mg by mouth at bedtime. ACETAMINOPHEN ORAL Take by mouth as needed. 10/23/2022 added in this encounter Care Teams Director Of Market Analysis Relationship Specialty Start Date End Date Amelia Swanson FNP-BC PCP - General 11/11/17 04/30/22 documented as of this encounter
--- OUTSIDE RECORDS SUMMARY | 2024-07-19 16:51 | XMS_ITS | Encounter Summary ---
Author Organization [facility] Address [address] [place] [address] Care Team Providers Care Doctor Naturopathic Name Role Phone Amelia Swanson ORGANIC PREPARATION TECHNICIAN- Primary Care Provider + Norma Murdock [facility] Primary Care Provider [phone] Encounter Details Date Type Department Care Team (Late st Contact Info) Description 09/04/2020 Lab Requisition [facility] Pathology & Laboratory Medicine - [address] [id number] Outr Resulting Lab, Provider Social History Tobacco [...] Procedure Name Priority Date/Time Associated Diagnosis Comments ZZCOVID-19 TEST [facility] PCR Today 09/04/2020 10:25 EST COVID-19 TESTING Routine 09/04/2020 10:2 5 EST documented in this encounter Results * COVID-19 TEST [facility] PCR (09/04/2020 10:25 EST) Swab ENTIRE NASOPHARYNX / Unknown 09/04/2020 10:25 EST 09/04/2020 15:38 EST Provider Outr Resulting Lab MICROBIOLOGY - GENERAL ORDERABLES Performing Organization Address [facility] Co de Phone Number [facility] [address] [place] [address] * COVID-19 TESTING (09/04/2020 10:25 EST) COVID-19 rt-PCR Result Negative Negative 09/05/2020 15:12 EST [facility] Comment: Negative results do not preclude 2019-nCoV infection and should not be used as the sole basis for treatment or other patient management decisions. Negative results must be combined with clinical observations, patient history, and epidemiological information. This test was developed and its performance characteristics determined by [facility]. It has not been cleared or approved by the US Food and Drug Administration. FDA does not require this test to go through premarket FDA review. This test is used for clinical purposes. It should not be regarded as investigational or for research. This laboratory is certified under the Clinical Laboratory Improvement Amendments (CLIA) as qualified to perform high complexity clinical laboratory testing. This test is based on the CDC COVID-19 Emergency Use Authorization (EUA) assay, with minor modification as defined by the FDA Performed on the Problemsolutions24o 7 Flex. Performing Lab Quantstudio 7 [facility] 09/05/2020 15:12 EST [facility] Swab 09/04/2020 10:2 5 EST 09/04/2020 15:38 EST Provider Outr Resulting Lab MICROBIOLOGY - GENERAL ORDERABLES Performing Organization Address City/[facility] Co de Phone Number [facility] [address] [place] [address] documented in this encounter Visit Diagnoses Not on filedocumented in this encounter Care Teams Doctor Naturopathic Relationship Specialty Start Date End Date Amelia Swanson FNP- PCP - General 11/11/17 04/30/22 Norma Murdock FNP [address] [place] [phone] PCP - General 05/01/22 documented as of this encounter
--- OUTSIDE RECORDS SUMMARY | 2024-07-19 16:51 | XMS_ITS | Encounter Summary ---
Author Organization [facility] Address [address] [place] [address] Care Team Providers Care Torch Operator Name Role Phone Amelia Swanson ROPE CUTTER- Primary Care Provider + Norma Murdock [facility] Primary Care Provider [phone] Encounter Details Date Type Department Care Team (Late st Contact Info) Description 01/25/2021 Lab Requisition [facility] Pathology & Laboratory Medicine - [address] [phone] Outr Resulting Lab, Provider Social History Tobacco [...] RNA BY PCR Routine 01/25/2021 8:25 EDT PSA TOTAL, DIAGNOSTIC Routine 01/25/2021 8:25 EDT documented in this encounter Results * PSA TOTAL, DIAGNOSTIC (01/25/2021 8:25 EDT) PSA 2.3 0.0 - 6.5 ng/mL 01/25/2021 21:48 EDT [facility] Blood VENOUS BLOOD / Unknown 01/25/2021 8:25 EDT 01/25/2021 20:42 EDT Narrative [facility] - 01/25/2021 21:48 EDT NOTE: Serum PSA concentration should not be interpreted as absolute evidence for the presence or absence of malignant disease. Assayed on Siemens ADVIA Animalvitaeaur XPT using chemiluminescent technology.??Values obtained by using different assay methods cannot be used interchangeably. Provider Outr Resulting Lab CHEMISTRY & BLOOD GAS ORDERABLES Performing Organization Address City/[facility]/ZIP Co de Phone Number [facility] [address] [place] [address] * HEPATITIS C AB W REFLEX TO HCV RNA BY PCR (01/25/2021 8:25 EDT) Hep C Antibody Negative Negative 01/26/2021 12:04 EDT [facility] Blood VENOUS BLOOD / Unknown 01/25/2021 8:25 EDT 01/25/2021 20:41 EDT Provider Outr Resulting Lab CHEMISTRY & BLOOD GAS ORDERABLES Performing Organization Address City/[facility] Co de Phone Number [facility] [address] [place] [address] documented in this encounter Visit Diagnoses Not on filedocumented in this encounter Care Teams Torch Operator Relationship Specialty Start Date End Date Amelia Swanson FNP- PCP - General 11/11/17 04/30/22 Norma Murdock FNP [address] [place] [phone] PCP - General 05/01/22 documented as of this encounter
--- OUTSIDE RECORDS SUMMARY | 2024-07-19 16:51 | XMS_ITS | Encounter Summary ---
Author Organization [facility] Address [facility] [address] [place] [address] Care Team Providers Care Cranberry Bog Supervisor Name Role Phone Ivanna Hughes APRN Primary Care Provider [phone] Reason for Visit * Reason Comments Finger Pain Encounter Details Date Type Department Care Team (Late st Contact Info) Description 06/10/2011 1:00 PM EDT Office Visit [place] [address] Tobias Jacobsen, OT [facility] PHYSICAL MEDICINE & [place] [address] Amputation of finger tip (Primary Dx) Social History Tobacco Use Types Packs/Day Years Used Date Smoking Tobacco: Former Cigarettes Q uit: 05/28/1970 Sex and Gender Information Value Date Recorded Sex Assigned at Not on file Gender Identity Not on file Sexual Orientation Not on file documented as of this encounter Progress Notes * Tobias Jacobsen, OT - 06/10/2011 6:11 PM EDT OCCUPATIONAL THERAPY PROGRESS NOTE REFERRAL SOURCE: Blair Bowman MD DIAGNOSIS: 1. Amputation of finger tip (886.0N) DATE OF INJURY: 05/19/2011 DATE OF SURGERY: 05/19/2011 NEXT MD FOLLOW UP: 6 weeks. TOTAL TREATMENT TIME: 16 Minutes TIMED CODE TREATMENT TIME: Therapeutic exercises 16 minutes CURRENT HISTORY: Shree Ortez Jr. is [...] Rest: 2-3/10 With Activity: 6/10 FUNCTIONAL LIMITATIONS: Shree Ortez Jr. identifies difficulty with the following tasks: 1.) Opening Jar 0/10 2.) Knife 0/10 *Patient Specific Functional Scale (PSFS): 0/10 (unable to perform) to 10/10 (Able to perform without difficulty). TREATMENT TODAY: Educated on and completed isolated and composite MP, PIP, and DIP motion to be done 5 x day or as tolerated. ASSESSMENT: Shree Ortez Jr. presents today with functional limitations due to pain, hypersensitivity, stiffness, and healing wounds with dissolvable sutures in place. He will benefit from scar management and edema reduction following wound closure. He has good potential for gains with therapy. Intermediate Goals (to be met by discharge): Shree [...] pain and symptoms. PLAN: Shree Ortez Jr. will be seen for recheck in 2 weeks for scar and edema management. (X) Shree Ortez Jr. participated in evaluation and treatment process and agrees to treatment interventions. documented in this encounter Plan of Treatment Scheduled Procedures Name Priority Associated Diagnoses Date/Ti ok EGD, UPPER GI ENDOSCOPY (WRV U 2.09) Esophageal dysphagia Encounter for colorectal cancer screening COLONOSCOPY, DIAGNOSTIC (WRV U 3.26) Esophageal dysphagia Encounter for colorectal cancer screening documented as of this encounter Visit Diagnoses Diagnosis Amputation of finger tip- Primary Traumatic amputation of other finger(s) (complete) (partial), without mention of complication documented in this encounter Care Teams Cranberry Bog Supervisor Relationship Specialty Start Date End Date Ivanna Hughes APRN PCP - General 05/19/11 09/10/15 documented as of this encounter
--- OUTSIDE RECORDS SUMMARY | 2024-07-19 16:51 | XMS_ITS | Encounter Summary ---
Author Organization [facility] Address [facility] [place] [address] Care Team Providers Care Air Traffic Supervisor Name Role Phone Ivanna Hughes VERONICA Primary Care Provider [phone] Reason for Referral * Occupational Therapy (Routine) - Closed Specialty Diagnoses / Procedures Referred By Ugo maynard Referred To Contact Occupational Therapy Diagnoses Fingertip amputation Mark Anthony Abdul MD [facility] [place] [address] [facility] [place] [address] Referral ID Status Reason Start Date Expiration Date V isits Requested Visits Authorized [id number] Closed Evaluate and Treat 05/28/2011 11/24/2011 1 1 Reason for Visit * Reason Comments Left Hand Pain L long/ring fing par t amp, doi 05/19/11 Encounter Details Date Type Department Care Team (Late st Contact Info) Description 05/28/2011 3:00 PM EDT Office [place] [address] Ion Bowman MD [facility] [place] [address] Fingertip amputation (Primary Dx) Discharge Disposition: Home Social History Tobacco Use Types Packs/Day Years Used Date Smoking Tobacco: Former Cigarettes Q uit: 05/28/1970 Sex and Gender Information Value Date Recorded Sex Assigned at Not on file Gender Identity Not on file Sexual Orientation Not on file documented as of this encounter Progress Notes * Ion Bowman MD - 06/03/2011 7:13 AM EDT I examined Shree Markus Ortez Jr. and I agree with Dr. Abdul's note. ION BOWMAN MD * Mark Anthony Abdul MD - 05/28/2011 2:58 PM EDT OFFICE NOTE DATE OF VISIT: 05/28/2011 DATE OF INJURY: 05/26/2011 CHIEF COMPLAINT: Status post completion amputation, left long and ring fingers, distal phalanx. HISTORY OF PRESENT ILLNESS: Mr. Ortez is a 60-year-old gentleman who is left-hand dominant who was working with a jointer who got a crush between the two parts of the jointer. He had a crush injury to his distal phalanx of both his long and ring fingers of his left hand. He was seen in the emergency room by orthopedics where completion applications were done. He is here for evaluation of his wound. He was placed on Keflex for this condition. He has been taking this religiously. He has had no significant increase in his pain. His pain is relatively well controlled. He has a couple of episodes where he has bumped his finger and had some increased pain, however. Otherwise, he has been doing well. PAST MEDICAL HISTORY: 1. Hypertension. 2. Sciatica. 3. Shoulder pain. PAST SURGICAL HISTORY: 1. Appendectomy. 2. Pilonidal cyst. 3. Finger tip injury. MEDICATIONS: Up-to-date and reviewed in the electronic medical record. ALLERGIES: NO KNOWN DRUG ALLERGIES. SOCIAL HISTORY: He does not smoke, quit back in 1968. He does not drink alcohol and does not exercise on a regular basis. He lives by himself and is currently disabled from any sort of occupation. PHYSICAL EXAMINATION: Dressings were taken down. The flaps that were used for closure were inspected. These are well perfused. There is brisk capillary refill in both radially based flaps. The wounds are well approximated. There is no erythema, induration, or wound drainage. 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 We urged him to continue to finish his course of Keflex he was prescribed with 10-day course of Keflex. We will replace soft sterile dressing. He will be sent to hand therapy for cap splints to his long and ring fingers in order to protect the wounds and allow for gentle range of motion of his proximal interphalangeal joints and MCP joints of these fingers. Otherwise, we will see him back in two weeks. No x-ray is needed at that time. I will inspect his wounds and likely advance his activity as tolerated. documented in this encounter Miscellaneous Notes * Miscellaneous - Kingsley Cat Breeder - 06/03/2011 1:24 PM EDT documented in this encounter Plan of Treatment Scheduled Procedures Name Priority Associated Diagnoses Date/Ti me EGD, UPPER GI ENDOSCOPY (WRV U 2.09) Esophageal dysphagia Encounter for colorectal cancer screening COLONOSCOPY, DIAGNOSTIC (WRV U 3.26) Esophageal dysphagia Encounter for colorectal cancer screening Scheduled Referrals Name Type Priority Associated Diagnoses Order Schedule REFERRAL TO OCCUPATIONAL THERAPY Outpatient Referral Routine Fingertip amputation Ordered: 05/28/2011 documented as of this encounter Visit Diagnoses Diagnosis Fingertip amputation- Primary Traumatic amputation of other finger(s) (complete) (partial), without mention of complication documented in this encounter Care Teams Air Traffic Supervisor Relationship Specialty Start Date End Date Ivanna Hughes APRN PCP - General 05/19/11 09/10/15 documented as of this encounter
--- OUTSIDE RECORDS SUMMARY | 2024-07-19 16:51 | XMS_ITS | Encounter Summary ---
Author Organization [facility] Address [facility] [address] [place] [address] Care Team Providers Care Neon Light Installer Name Role Phone Ivanna Hughes APRN Primary Care Provider +1- [phone] Reason for Visit * Reason Comments Inguinal Hernia Encounter Details Date Type Department Care Team (Late st Contact Info) Description 02/21/2014 11:30 AM EDT Office Visit General Surgery at [facility] [place], operated by [facility] [place] [address] Flash Rivas MD [facility] [place] [address] Left groin pain (Primary Dx) Discharge Disposition: Home Social History [...] Sign Reading Time Taken Comments Blood Pressure 151/89 02/21/2014 11:18 AM EDT Pulse 86 02/21/2014 11:18 AM EDT Temperature 36.9 ??C (98.4 ??F) 02/21/2014 11:18 AM E DT Respiratory Rate 16 02/21/2014 11:18 AM EDT Oxygen Saturation 98% 02/21/2014 11:18 AM EDT Inhaled Oxygen Concentration - - Weight 97.7 kg (215 lb 6.2 oz) 02/21/2014 11:18 AM EDT Height 172.7 cm (5' 7.99) 02/21/2014 11:18 AM E DT Body Mass Index 32.76 02/21/2014 11:18 AM EDT documented in this encounter Progress Notes * Flash Rivas MD - 02/21/2014 11:55 AM EDT Shree Aparicio Neelima Cohen is a 63 y.o. male who presents to my clinic today with a chief complaint of intermittent left groin pain. He reports that this has been ongoing for around 2-3 years but that it hasincreased significantly over the last few months. He reports that this groin discomfort is especially notable with activity such as climbing up ladders. He also reports noting an occasional left groin lump. He denies any changes in bowel habits, no nausea/vomiting, no other consitutional symptoms. He was seen by his PCP who felt this could represent a left groin hernia versus left hip problem. Past Medical History HTN Past Surgical History Left Hand Amputation/Trauma Pilonidal Cyst 1984 Current Outpatient Prescriptions on File Prior to Visit Medication Sig Dispense Refill ??? acetaminophen (TYLENOL) 500 mg tablet Take 1,000 mg by mouth every 6 hours as needed. ??? terazosin (HYTRIN) 1 mg capsule Take 1 mg by mouth nightly. No Known Allergies History Substance Use Topics ??? Smoking status: Former Smoker Quit date: 05/28/1970 ??? Smokeless tobacco: Never Used ??? Alcohol Use: No General ROS: Pertinent items are noted in HPI. On physical examination today, BP 151/89 Pulse 86 Temp 36.9 ??C (98.4 ??F) Resp 16 Ht 172.7cm (5' 7.99) Wt 97.7 kg (215 lb 6.2 oz) BMI 32.76 kg/m2 SpO2 98% Body mass index is 32.76 kg/(m^2). General: Alert, no acute distress. HEENT: Neck supple with midline trachea Chest: Normal chest wall and respirations. Clear to auscultation. Cardiac: regular rate and rhythm Abdominal: soft, non-tender; bowel sounds normal; no masses, no organomegaly, well healed RLQ appendectomy incision Inguinal: Right groin within normal limits. Left groin with some asymmetric subcutaneous tissue butno obvious inguinal hernia with cough/valsalva in standing position Rectal: deferred Ancillary Data: N/A Assessment and Plan: Shree Ortez Jr. is a 63 y.o. male. with intermittent left groin discomfort which has been noticeable with activity, this has been worse over the last few months. I cannot appreciate a hernia on physical examination today. We will therefore obtain a CT scan and follow-up on the results in clinic. documented in this encounter Plan of Treatment Scheduled Procedures Name Priority Associated Diagnoses Date/Ti me EGD, UPPER GI ENDOSCOPY (WRV U 2.09) Esophageal dysphagia Encounter for colorectal cancer screening COLONOSCOPY, DIAGNOSTIC (WRV U 3.26) Esophageal dysphagia Encounter for colorectal cancer screening documented as of this encounter Results * CT abdomen & pelvis with contrast (04/15/2014 10:24 AM EDT) Anatomical Region Laterality Modality Abdomen, Pelvis Computed Tomogra phy 04/15/2014 10:2 4 AM EDT Narrative 04/15/2014 1:[address] Abdomen / Pelvis With Contrast Clinical History Left lower quadrant pain and inguinal discomfort intermittently with no overt inguinal hernia on exam ? mass or abdominal/pelvic pathology evident, occult hernia apparent Comparison No prior CT for comparison. ?? Technique Spiral CT images of the abdomen and pelvis were obtained after administration 110 cc of Omnipaque 350 IV contrast. Oral contrast was administered. ?? Findings Heart is normal. No pericardial or pleural effusions. Lung bases are clear. ?? Abdomen/pelvis: Liver is normal. Gallbladder is normal with no wall thickening or pericholecystic fluid. Spleen, pancreas, and adrenal glands are normal. Right kidney is normal. There is a heterogeneous hypo-enhancing mass in the inferior pole of the left kidney measuring 4.9 x 3.9 x 4.3 centimeters. Within this mass there is a single focus of low attenuation measuring 0.9 centimeters however cannot confirm mass contains fat. Left renal vein is patent. There is no hydronephrosis or perinephric stranding. Small and large bowel are of normal caliber with no wall thickening. Few scattered sigmoid diverticula without any pericolonic fat stranding. Bladder is normal with no wall thickening. No mesenteric, retroperitoneal, or pelvic adenopathy. There is a small fat containing left inguinal hernia. ?? Left hip joint with joint space narrowing, subchondral sclerosis, and cystic changes consistent with osteoarthritis. Multiple degenerative spondylosis changes most pronounced and thoracolumbar and lumbar region. ?? Impression 1. Incidental finding of heterogeneously hypo-enhancing mass measuring 4.9 x 3.9 x 4.3 centimeters in the inferior pole of left kidney containing a discrete low attenuation focus. Differential considerations include RCC, oncocytoma, AML. Give the intralesional low attenuation focus, recommend further characterization with renal mass protocol MRI to evaluate for presence of gross fat. ?? 2. Small fat containing left inguinal hernia ?? 3. Left hip osteoarthritis may result in left inguinal pain. ?? Film and interpretation reviewed by the attending Procedure Note Godwin Gonsalez MD - 04/15/[address] Abdomen / Pelvis With Contrast Clinical History Left lower quadrant pain and inguinal discomfort intermittently with noovert inguinal hernia on exam ? mass or abdominal/pelvic pathology evident, occult hernia apparent Comparison No prior CT for comparison. Technique Spiral CT images of the abdomen and pelvis were obtained afteradministration 110 cc of Omnipaque 350 IV contrast. Oral contrast was administered. Findings Heart is normal. No pericardial or pleural effusions. Lung bases areclear. Abdomen/pelvis: Liver is normal. Gallbladder is normal with no wallthickening or pericholecystic fluid. Spleen, pancreas, and adrenal glands are normal. Right kidney is normal. There is a heterogeneous hypo-enhancing mass inthe inferior pole of the left kidney measuring 4.9 x 3.9 x 4.3 centimeters.Within this mass there is a single focus of low attenuation measuring 0.9centimeters however cannot confirm mass contains fat. Left renal vein is patent. Thereis no hydronephrosis or perinephric stranding. Small and large bowel are ofnormal caliber with no wall thickening. Few scattered sigmoid diverticula withoutany pericolonic fat stranding. Bladder is normal with no wall thickening. No mesenteric, retroperitoneal, or pelvic adenopathy. There is a small fat containing left inguinal hernia. Left hip joint with joint space narrowing, subchondral sclerosis, andcystic changes consistent with osteoarthritis. Multiple degenerative spondylosis changes most pronounced and thoracolumbar and lumbar region. Impression 1. Incidental finding of heterogeneously hypo-enhancing mass measuring 4.9x 3.9 x 4.3 centimeters in the inferior pole of left kidney containing adiscrete low attenuation focus. Differential considerations include RCC,oncocytoma, AML. Give the intralesional low attenuation focus, recommend further characterization with renal mass protocol MRI to evaluate for presence ofgross fat. 2. Small fat containing left inguinal hernia 3. Left hip osteoarthritis may result in left inguinal pain. Film and interpretation reviewed by the attending Flash Rivas MD IMG CT ORDERABLES * Creatinine (04/15/2014 9:11 AM EDT) Creatinine 1.01 0.80 - 1.50 mg/dL [facility] Comment: Please note that the pediatric reference intervals supplied above were not validated at [facility]. Results from pediatric patients should be interpreted in conjunction to the patient's age, height and muscle mass. Est Glomerular Filtration Rate >60 >=60 [facility] Comment: This estimated GFR (eGFR) value was [...] the following links into your internet browser. [email or web address] Blood specimen (specimen) 04/15/2014 9:11 AM EDT 04/15/2014 9:15 AM EDT Narrative Resulting Agency Comment Spec In Lab Flash Rivas MD CHEMISTRY ORDERABLES [facility] documented in this encounter Visit Diagnoses Diagnosis Left groin pain- Primary Abdominal pain, left lower quadrant Left groin pain Abdominal pain, left lower quadrant Left inguinal hernia Inguinal hernia without mention of obstruction or gangrene, unilateral or unspecified, (not specified as recurrent) Left renal mass Unspecified disorder of kidney and ureter documented in this encounter Care Teams Neon Light Installer Relationship Specialty Start Date End Date Ivanna Hughes APRN PCP - General 8/28/11 12/20/15 documented as of this encounter
--- OUTSIDE RECORDS SUMMARY | 2024-07-19 16:51 | XMS_ITS | Encounter Summary ---
Author Organization [facility] Address [facility] [address] [place] [address] Care Team Providers Care Homicide Investigator Name Role Phone Ivanna Hughes APRN Primary Care Provider [phone]- [phone] Reason for Visit * Reason Comments Finger Injury Encounter Details Date Type Department Care Team (Late st Contact Info) Description 05/28/2011 3:45 PM EDT Office [place] [address] Belkys Meza, OT [facility] PHYSICAL MEDICINE & [place] [address] Blair Bowman MD [facility] [place] [address] Alejandro Roche, OT [facility] PHYSICAL MEDICINE & [place] [address] Amputation of finger tip (Primary Dx) Discharge Disposition: Home Social History Tobacco Use Types Packs/Day Years Used Date Smoking Tobacco: Former Cigarettes Q uit: 05/28/1970 Sex and Gender Information Value Date Recorded Sex Assigned at Not on file Gender Identity Not on file Sexual Orientation Not on file documented as of this encounter Progress Notes * Alejandro Roche, OT - 05/28/2011 3:51 PM EDT OCCUPATIONAL THERAPY SPLINTING EVALUATION REFERRAL SOURCE: Blair Bowman MD DIAGNOSIS: 1. Amputation of finger tip (886.0N) DATE OF INJURY: 05/19/2011 DATE OF SURGERY: 05/19/2011 NEXT MD FOLLOW UP: 06/10/2011 TOTAL TREATMENT TIME: 30 Minutes TIMED CODE TREATMENT TIME: Orthotic management & trainin minutes CURRENT HISTORY: Shree Ortez Jr. is a 60 y.o. year old male who sustained lacerations to the distal portion of the long and ring finger of the left hand. The patient underwent surgery on 05/19/2011for an amputation of the distal phalanx. Shree Ortez Jr. was seen by Dr. Bowman for evaluation and referred to Occupational Therapy for splint fabrication. Mechanism of Injury: Patient sustained his injury from a jointer injury. Patient has had no prior problems with this area in the past. Current Symptoms: Patient presents with pain, swelling and stiffness. 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 identifies difficulty with the following tasks: 1.) Opening Jar 0/10 2.) Knife 0/10 *Patient Specific Functional Scale (PSFS): 0/10 (unable to perform) to 10/10 (Able to perform without difficulty). TREATMENT TODAY: Fabricated custom left long and ring finger cap splints SPLINT PURPOSE: To protect and support the stump of the fingers with activity. INSTRUCTIONS: Shree Ortez Jr. to wear splint with activity and sleeping. ASSESSMENT: Shree Ortez Jr. presents today with functional limitations due to pain and hypersensitivty. Patient has a well fitting splint post therapy. he is able to demonstrate their home exercises with written instructions provided today. he has good potential for gains with therapy. Patient knows to call with any questions or concerns. Technical Developer Goals (to be met by discharge): Shree [...] and symptoms. PLAN: Shree Ortez Jr. will follow up with Dr. Bowman on 06/10/2011. His plan of care will be determined at that time. (X) Shree Ortez Jr. participated in evaluation [...] complication documented in this encounter Care Teams Homicide Investigator Relationship Specialty Start Date End Date Ivanna Hughes APRN PCP - General 05/19/11 09/10/15 documented as of this encounter
--- OUTSIDE RECORDS SUMMARY | 2024-07-19 16:51 | XMS_ITS | Encounter Summary ---
Author Organization [facility] Address [address] [place] [address] Care Team Providers Care Bottle Feeder Name Role Phone Amelia Swanson [facility] Primary Care Provider + Encounter Details Date Type Department Care Team (Late st Contact Info) Description 03/06/2018 Phlebotomy Only [facility] [address] [place] [address] Calculator Operator, Outpatient Memory loss (Primary Dx) Social History Tobacco [...] Procedure Name Priority Date/Time Associated Diagnosis Comments SYPHILIS SEROLOGY Routine 03/06/2018 15: 57 EDT Memory loss COMPLETE BLOOD COUNT AND DIFFERENTIAL Routine 03/06/2018 15:57 EDT Memory loss VITAMIN B12 Routine 03/06/2018 15:57 EDT Memory loss COMPREHENSIVE METABOLIC PANEL (CMP) Routine 03/06/2018 15:57 EDT Memory loss documented in this encounter Results * SYPHILIS SEROLOGY (03/06/2018 15:57 EDT) Syphilis Serology Negative 03/09/2018 14:08 EDT [facility] Comment:Reference Range: Neg ative Blood specimen (specimen) BLOOD SPECIMEN / Unknown 03/06/2018 15:57 EDT 03/06/2018 17:42 EDT Cedric Mckenzie MD IMMUNOLOGY AND S EROLOGY ORDERABLES Performing Organization Address City/[facility]/ZIP Co de Phone Number [facility] [address] [place] [address] * VITAMIN B12 (03/06/2018 15:57 EDT) Vitamin B-12 434 211 - 911 pg/ml 03/09/2018 10:43 EDT [facility] Comment: The results of this assay can be falsely lowered due to the consumption of Biotin. Blood specimen (specimen) BLOOD SPECIMEN / Unknown 03/06/2018 15:57 EDT 03/06/2018 17:42 EDT Cedric Mckenzie MD CHEMISTRY & BLOO D GAS ORDERABLES Performing Organization Address [facility] Co de Phone Number [facility] [address] [place] [address] * HEMAGRAM AND DIFFERENTIAL (03/06/2018 15:57 EDT) WBC 5.74 4.0 - 10.4 K/cmm 03/06/2018 17:59 [facility] RBC 4.60 4.36 - 5.78 M/cmm 03/06/2018 17:59 [facility] Hemoglobin 14.0 13.8 - 17.3 gm/dl 03/06/2018 17:59 [facility] HCT 41.0 39.5 - 50.2 % 03/06/2018 17:59 [facility] MCV 89 81 - 95 fl 03/06/2018 17:59 [facility] MCH 30.4 27.6 - 33.0 pg 03/06/2018 17:59 [facility] MCHC 34.1 32.8 - 36.4 gm/dl 03/06/2018 17:59 [facility] RDW-CV 13.2 <14.2 % 03/06/2018 17:59 [facility] RDW-SD 42.9 <46.0 fl 03/06/2018 17:59 EDT [facility] PLT 220 141 - 377 K/cmm 03/06/2018 17:59 EDT [facility] MPV 11.0 9.5 - 12.7 fl 03/06/2018 17:59 [facility] % Neutrophils 59.5 % 03/06/2018 17:59 EDT [facility] % Lymphocytes 31.7 % 03/06/2018 17:59 EDT [facility] % Monocytes 7.3 % 03/06/2018 17:59 EDT [facility] % Eosinophils 0.9 % 03/06/2018 17:59 [facility] % Basophils 0.3 % 03/06/2018 17:59 [facility] % Immature Grans 0.3 % 03/06/2018 17:59 [facility] ABS Neutrophils 3.41 2.20 - 8.85 K/cmm 03/06/2018 17:59 EDT [facility] ABS Lymphs 1.82 1.09 - 3.30 K/cmm 03/06/2018 17:59 T [facility] ABS Monocytes 0.42 0.1 - 0.8 K/cmm 03/06/2018 17:59 [facility] ABS Eosinophils 0.05 0.03 - 0.61 K/cmm 03/06/2018 17:59 [facility] ABS Basophils 0.02 0.01 - 0.11 K/cmm 03/06/2018 17:59 EDT [facility] ABS Immature Grans 0.02 0 - 0.06 K/cmm 03/06/2018 17:59 EDT [facility] Type of Diff: Automated 03/06/2018 17:59 [facility] Blood specimen (specimen) BLOOD SPECIMEN / Unknown 03/06/2018 15:57 EDT 03/06/2018 17:42 EDT Cedric Mckenzie MD PACKAGES & BILLY BARRAZA ORDERABLES [facility] [address] [place] [address] * (ABNORMAL) COMPREHENSIVE METABOLIC PANEL (CMP) (03/06/2018 15:57 EDT) Potassium 4.7 3.5 - 5.0 mEq/L 03/06/2018 18:15 [facility] Sodium 142 136 - 145 mEq/L 03/06/2018 18:15 [facility] Chloride 107 96 - 110 mEq/L 03/06/2018 18:15 [facility] CO2 25 22 - 32 mEq/L 03/06/2018 18:15 [facility] Total Alkaline Phosphatase 105 38 - 126 U/L 03/06/2018 18:15 [facility] Bilirubin, Total <0.5 <1.4 mg/dl 03/06/20 18 18:15 [facility] AST 31 15 - 46 U/L 03/06/2018 18:15 [facility] ALT 45 21 - 72 U/L 03/06/2018 18:15 [facility] Albumin 3.9 3.4 - 4.9 g/dl 03/06/2018 18:15 [facility] Total Protein 6.7 6.3 - 8.2 g/dl 03/06/2018 18:15 [facility] Creatinine 1.34(H) 0.66 - 1.25 mg/dl 03/06/2018 18:15 [facility] GFR, Calculated 54(L) >60 ml/min/1.7 3m2 03/06/2018 18:15 [facility] Comment: eGFR calculated using CKD-EPI equation for non Americans. Multiply eGFR by 1.16 for Americans. BUN 21 10 - 26 mg/dl 03/06/2018 18:15 [facility] Calcium 9.3 8.5 - 10.5 mg/dl 03/06/2018 18:15 [facility] Calculated Calcium 9.4 8.5 - 10.5 mg/dl 03/06/2018 18:15 [facility] Glucose, Serum 89 70 - 100 mg/dl 03/06/2018 18:15 EDT [facility] Fasting? No 03/06/2018 15:54 EDT [facility] Blood specimen (specimen) BLOOD SPECIMEN / Unknown 03/06/2018 15:57 EDT 03/06/2018 17:42 EDT Cedric Mckenzie MD CHEMISTRY & BLOO D GAS ORDERABLES Performing Organization Address City/State/[facility] Co de Phone Number [facility] [address] [place] [address] documented in this encounter Visit Diagnoses Diagnosis Memory loss- Primary documented in this encounter Care Teams Bottle Feeder Relationship Specialty Start Date End Date Amelia Swanson, ROUTE INSPECTOR- PCP - General 11/11/17 04/30/22 documented as of this encounter
--- OUTSIDE RECORDS SUMMARY | 2024-07-19 16:51 | XMS_ITS | Encounter Summary ---
Author Organization [facility] Address [facility] [address] [place] [address] Care Team Providers Care Grooming Salon Manager Name Role Phone Ivanna Hughes APRN Primary Care Provider +1- [phone] Reason for Visit * Reason Comments Follow-up F/U L 3RD & 4TH AMP. DOI 05/19 2011 Encounter Details Date Type Department Care Team (Late st Contact Info) Description 09/24/2011 1:15 PM EST Follow-[place] [id number] Blair Bowman MD [facility] DR [place] [address] Amputation of finger tip (Primary Dx) Discharge [...] - Inhaled Oxygen Concentration - - Weight 90.7 kg (200 lb) 09/24/2011 1:15 PM EST Height 172.7 cm (5' 8) 09/24/2011 1:15 PM EST Body Mass Index 30.41 09/24/2011 1:15 PM EST documented in this encounter Progress Notes * Blair Bowman MD - 09/24/2011 1:37 PM EST Shree Ortez is [age] and a half months status post 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 He returns for followup. His only complaint at this point is cold intolerance of his fingertips. He also has some tingling when he taps his fingertips on a hard surface. His fingertips are not sensitive. He can basically flex his fingers down to his palm and can extend fully. At this point, I am discharging him from my care. He may use his hands as tolerated. I will see him in the future on a p.r.n. basis. documented in this encounter Plan of Treatment [...] complication documented in this encounter Care Teams Grooming Salon Manager Relationship Specialty Start Date End Date Ivanna Hughes APRN PCP - General 05/19/11 09/10/15 documented as of this encounter
--- OUTSIDE RECORDS SUMMARY | 2024-07-19 16:51 | XMS_ITS | Encounter Summary ---
Author Organization [facility] Address [address] [place] [address] Care Team Providers Care Primary Health Organisation Manager Name Role Phone Norma Murdock RUBBER GOODS CUTTER FINISHER Primary Care Provider [phone] Reason for Visit * Reason Comments Eye Exam Encounter Details Date Type Department Care Team (Late st Contact Info) Description 07/24/2022 14:30 EDT Office Visit [facility] Ophthalmology - [address] [id number] Mahogany Caraballo MD [address] [facility], [address] [place] [address] Social History Tobacco Use Types [...] Progress Notes * Mahogany Caraballo MD - 07/24/2022 1430 EDT Chief Complaint Patient presents with ??? Eye Exam Comments Patient reports intermittent burning sensation in left eye- first noticed in january/february, was seen by an founder / ceo and was told he had dry eyes, doesn't use any eyedrops of any kind, reports vision isblurry- having trouble reading especially since the burning sensation, wears glasses for reading, no eye pain, no Foreign body sensation. hx of cataract surgery and IOL implants HPI The patient is a 72 y.o. male here of left eye pain since February, intermittent, burning And issues with reading Right Eye: Blurred Vision Left Eye: Burning, Blurred Vision Visual Aid: Glasses (readers) Current Rx Age Location: Left eye Pain: 0 - No pain Quality: Severity: Duration: Timing: Lasts: Context: eye exam Modifying factors: Associated Signs & Symptoms: burning sensation Attestation: ROS Constitutional: NL ENT/Mouth NL Cardiovascular: High Blood Pressure Respiratory: Gastrointestinal: NL Genitourinary: NL Musculoskeletal: NL Integumentary: NL Neurologic: NL Psychiatric: NL Endocrine: NL Hematologic: NL Immunologic: Drug Allergy Chassis Inspector: Exposures: Other: Attestation: Allergies include: Lisinopril and Pantoprazole Patient Active Problem List Diagnosis ??? Hypertension ??? Overweight ??? Renal cell carcinoma (HCC-CMS) (HCC) ??? Anxiety and depression Outpatient Medications Marked as Taking for the 07/24/22 encounter (Office Visit) with Mahogany Caraballo MD [...] Acuity (Snellen - Linear) Right Left Dist sc 20/70 -2 20/40 - Dist cc 20/25 -2 20/25 -1 Near cc 20/60 20/30 Tonometry (Applanation, 15:20) Right Left Pressure 17 11 Pupils Dark Light Shape React APD Right 4.5 3 Round Brisk None Left 4.5 3 Round Brisk None Dilation Both eyes: Phenylephrine 2.5%, Tropicamide 1% @ 15:23 Slit Lamp and Fundus Exam External Exam Right Left External Normal Normal Slit Lamp Exam Right Left Lids/Lashes Meibomian gland dysfunction, 2+ Blepharitis Meibomian gland dysfunction, 2+ Blepharitis Conjunctiva/Sclera White and quiet White and quiet Cornea Strip of inferior SPK Clear Anterior Chamber Deep and quiet Deep and quiet Iris Dilated Dilated Lens Posterior chamber intraocular lens Posterior chamber intraocular lens Vitreous Normal Normal Fundus Exam Right Left Disc Healthy Rim, round Healthy Rim C/D Ratio 0.7 0.8 Macula Normal Normal Vessels Normal Normal Periphery Normal Normal Refraction Wearing Rx Sphere Cylinder Leggett Add Right -1.50 +1.50 020 +2.50 Left -0.50 +0.50 000 +2.50 IMPRESSION & PLAN: NPV with history of - Optic nerve cupping 0.8 with recorded stability in testing from [id number] - PCIOLs Patient complaints of intermittent burning of left eye- he has MGD and blepharitis. See plan. He complains of blurry NV- see plan PLAN: Daily warm soak twice daily Manual lid hygeine daily Artificial tears twice daily Return in 3 months for undilated exam with HVF 24-2 SS, possible refraction if pt has not found an founder / ceo Shree was seen today for eye exam. 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 Medication Sig Dispensed Refills Start Date End Date amlodipine besylate (AMLODIPINE ORAL) Take by mouth. added in this encounter Eye Exam Visual Acuity (Snellen - Linear) Right eye Left eye Dist sc 20/70 -2 20/40 - Dist cc 20/25 -2 20/25 -1 Near cc 20/60 20/30 Tonometry (Applanation, 15:20) Right eye Left eye Pressure 17 11 Pupils Dark Light Shape React APD Right eye 4.5 3 Round Brisk None Left eye 4.5 3 Round Brisk None Dilation Both eyes: Phenylephrine 2.5 %, Tropicamide 1% @ 15:23 External Exam Right eye Left eye External Normal Normal Slit Lamp Exam Right eye Left eye Lids/Lashes Meibomian gland dysf unction, 2+ Blepharitis Meibomian gland dysfunction, 2+ Blepharitis Conjunctiva/Sclera White and quiet White and elizabeth et Cornea Strip of inferior SPK Clear Anterior Chamber Deep and quiet Deep and quiet Iris Dilated Dilated Lens Posterior chamber in traocular lens Posterior chamber intraocular lens Vitreous Normal Normal Fundus Exam Right eye Left eye Disc Healthy Rim, round Healthy Rim C/D Ratio 0.7 0.8 Macula Normal Normal Vessels Normal Normal Periphery Normal Normal Wearing Rx Sphere Cylinder Leggett Add Right eye -1.50 +1.50 020 +2.50 Left eye -0.50 +0.50 000 +2.50 Care Teams Primary Health Organisation Manager Relationship Specialty Start Date End Date Norma Murdock FNP [address] [place] [address] [place] [phone] PCP - General 05/01/22 documented as of this encounter
--- OUTSIDE RECORDS SUMMARY | 2024-07-19 16:51 | XMS_ITS | Encounter Summary ---
Author Organization [facility] Address [address] [place] [address] Care Team Providers Care Event Designer Name Role Phone Amelia Swanson [facility] Primary Care Provider + Reason for Referral * Radiology Services (Routine) - Specialty Report Received Specialty Diagnoses / Procedures Referred By Ugo maynard Referred To Contact Diagnoses Memory loss Procedures CT HEAD WO CONTRAST Cedric Mckenzie MD [address] [place] [address] Medical Office Building, [address] [place] [phone] Referral ID Status Reason Start Date Expiration Date V isits Requested Visits Authorized [id number] Specialty Report Received 11/21/2017 1 1 Encounter Details Date Type Department Care Team (Late st Contact Info) Description 11/21/2017 Orders Only [facility] Memory Program - Medical Office Building [address] [place] [id number] Cedric Mckenzie MD [address] [place] [address] Medical Office Building, [address] [place] [address] Memory loss (Primary Dx) Social [...] Name Priority Date/Time Associated Diagnosis Comments CT HEAD WO CONTRAST Routine 03/06/2018 1 5:42 EDT Memory loss documented in this encounter Results * SYPHILIS SEROLOGY (03/06/2018 15:57 EDT) Pathologist [facility] Syphilis Serology Negative 03/09/2018 14:[address] [facility] Comment:Reference Range: Neg ative Blood specimen (specimen) BLOOD SPECIMEN / Unknown 03/06/2018 15:57 EDT 03/06/2018 17:42 EDT Cedric Mckenzie MD IMMUNOLOGY AND S EROLOGY ORDERABLES Performing Organization Address [facility] Co de Phone Number [facility] [address] [place] [address] * VITAMIN B12 (03/06/2018 15:57 EDT) [facility] Vitamin B-12 434 211 - 911 pg/ml 03/09/2018 10:[address] [facility] Comment: The results of this assay can be falsely lowered due to the consumption of Biotin. Blood specimen (specimen) BLOOD SPECIMEN / Unknown 03/06/2018 15:57 EDT 03/06/2018 17:42 EDT Cedric Mckenzie MD CHEMISTRY & BLOO D GAS ORDERABLES Performing Organization Address [facility] Co de Phone Number [facility] [address] [place] [address] * HEMAGRAM AND DIFFERENTIAL (03/06/2018 15:57 EDT) [facility] WBC 5.74 4.0 - 10.4 K/cmm 03/06/2018 17:[address] [facility] RBC 4.60 4.36 - 5.78 M/cmm 03/06/2018 17:[address] [facility] Hemoglobin 14.0 13.8 - 17.3 gm/dl 03/06/2018 17[facility] HCT 41.0 39.5 - 50.2 % 03/06/2018 17:[address] [facility] MCV 89 81 - 95 fl 03/06/2018 17:[address] [facility] MCH 30.4 27.6 - 33.0 pg 03/06/2018 17:[facility] MCHC 34.1 32.8 - 36.4 gm/dl 03/06/2018 17:59 [facility] RDW-CV 13.2 <14.2 % 03/06/2018 17:59 [facility] RDW-SD 42.9 <46.0 fl 03/06/2018 17:59 [facility] PLT 220 141 - 377 K/formerly [facility] 03/06/2018 17:59 [facility] MPV 11.0 9.5 - 12.7 fl 03/06/2018 17:59 [facility] % Neutrophils 59.5 % 03/06/2018 17:59 [facility] % Lymphocytes 31.7 % 03/06/2018 17:59 [facility] % Monocytes 7.3 % 03/06/2018 17:59 [facility] % Eosinophils 0.9 % 03/06/2018 17:59 [facility] % Basophils 0.3 % 03/06/2018 17:59 [facility] % Immature Grans 0.3 % 03/06/2018 17:59 [facility] ABS Neutrophils 3.41 2.20 - 8.85 K/cmm 03/06/2018 17:59 [facility] ABS Lymphs 1.82 1.09 - 3.30 K/cmm 03/06/2018 17:59 [facility] ABS Monocytes 0.42 0.1 - 0.8 K/cmm 03/06/2018 17:59 [facility] ABS Eosinophils 0.05 0.03 - 0.61 K/cmm 03/06/2018 17:59 [facility] ABS Basophils 0.02 0.01 - 0.11 K/cm 03/06/2018 17:59 [facility] ABS Immature Grans 0.02 0 - 0.06 K/cmm 03/06/2018 17:59 [facility] Type of Diff: Automated 03/06/2018 17:59 [facility] Blood specimen (specimen) BLOOD SPECIMEN / Unknown 03/06/2018 15:57 EDT 03/06/2018 17:42 EDT Cedric Mckenzie MD PACKAGES & DNA P MADI ORDERABLES [facility] [address] [place] [address] * (ABNORMAL) COMPREHENSIVE METABOLIC PANEL (CMP) (03/06/2018 15:57 EDT) Potassium 4.7 3.5 - 5.0 mEq/L 03/06/2018 18:15 [facility] Sodium 142 136 - 145 mEq/L 03/06/2018 18:15 [facility] Chloride 107 96 - 110 mEq/L 03/06/2018 18:15 [facility] CO2 25 22 - 32 mEq/L 03/06/2018 18:15 [facility] Total Alkaline Phosphatase 105 38 - 126 U/L 03/06/2018 18:15 [facility] Bilirubin, Total <0.5 <1.4 mg/dl 03/06/20 18 18:15 [facility] AST 31 15 - 46 U/L 03/06/2018 18:15 [facility] ALT 45 21 - 72 U/L 03/06/2018 18:15 [facility] Albumin 3.9 3.4 - 4.9 g/dl 03/06/2018 18:15 [facility] Total Protein 6.7 6.3 - 8.2 g/dl 03/06/2018 18:15 [facility] Creatinine 1.34(H) 0.66 - 1.25 mg/dl 03/06/2018 18:15 [facility] GFR, Calculated 54(L) >60 ml/min/1.7 3m2 03/06/2018 18:15 [facility] Comment: eGFR calculated using CKD-EPI equation for non Americans. Multiply eGFR by 1.16 for Americans. BUN 21 10 - 26 mg/dl 03/06/2018 18:[address] [facility] Calcium 9.3 8.5 - 10.5 mg/dl 03/06/2018 18:[address] [facility] Calculated Calcium 9.4 8.5 - 10.5 mg/dl 03/06/2018 18:[address] [facility] Glucose, Serum 89 70 - 100 mg/dl 03/06/2018 18:[address] [facility] Fasting? No 03/06/2018 15:[address] [facility] Blood specimen (specimen) BLOOD SPECIMEN / Unknown 03/06/2018 15:57 EDT 03/06/2018 17:42 EDT Cedric Mckenzie MD CHEMISTRY & BLOO D GAS ORDERABLES Performing Organization Address City/State/[facility] Co de Phone Number [facility] [address] [place] [address] * CT HEAD WO CONTRAST (03/06/2018 15:42 EDT) Anatomical Region Laterality Modality Other 03/06/2018 15:4 2 EDT 03/06/2018 15:54 EDT Narrative 03/06/2018 15:[address] of the Head ??March 06, 2018. Signs and Symptoms: ??R41.3-Other [id number]; Memory Loss Comparison: None. Technique: CT images were obtained from the vertex through the foramen magnum. Findings: There is no intracranial mass, hemorrhage or extra-axial fluid collections. ??There is no mass effect or midline shift. Rasmussen-white differentiation is preserved. ??The ventricles are normal in size and shape. ??The basal cisterns are patent. ??The orbits appear unremarkable aside from prior lens extraction. The paranasal sinuses and mastoid air cells are clear. ??No fractures are identified. ?? Impression: No acute intracranial abnormality. Procedure Note Joe Carcamo MD - 03/06/2018 CT of the Head March 06, 2018. Signs and Symptoms: R41.3-Other [id number]; Memory Loss Comparison: None. Technique: CT images were obtained from the vertex through the foramen magnum. Findings: There is no intracranial mass, hemorrhage or extra-axial fluid collections. There is no mass effect or midline shift. Rasmussen-white differentiation is preserved. The ventricles are normal in size and shape. The basal cisterns are patent. The orbits appear unremarkable aside from prior lens extraction. The paranasal sinuses and mastoid air cells are clear. No fractures are identified. Impression: No acute intracranial abnormality. Cedric Mckenzie MD IMG CT ORDERABLE S documented in this encounter Visit Diagnoses Diagnosis Memory loss- Primary documented in this encounter Orders Lab Orders Without Results Count Last Ordered D ate First Ordered Date TSH 1 11/21/2017 documented in this encounter Care Teams Event Designer Relationship Specialty Start Date End Date Amelia Swanson, ROBOTIC MAINTENANCE TECHNICIAN- PCP - General 11/11/17 04/30/22 documented as of this encounter
--- OUTSIDE RECORDS SUMMARY | 2024-07-19 16:51 | XMS_ITS | Encounter Summary ---
Author Organization [facility] [address] [place] [address] Care Team Providers Care Security Guards Dispatcher Name Role Phone Ivanna Hughes APRN Primary Care Provider [phone] Encounter Details Date Type Department Care Team (Late st Contact Info) Description 04/15/2014 10:45 AM EDT Follow-Up General Surgery at [facility] [place] [id number] Flash Rivas MD [facility] [place] [address] Left groin pain; Left inguinal hernia; Left renal mass Discharge Disposition: Home Social [...] Sign Reading Time Taken Comments Blood Pressure 149/99 04/15/2014 10:54 AM EDT Pulse 71 04/15/2014 10:54 AM EDT Temperature 36.4 ??C (97.5 ??F) 04/15/2014 10:54 AM E DT Respiratory Rate 18 04/15/2014 10:54 AM EDT Oxygen Saturation 98% 04/15/2014 10:54 AM EDT Inhaled Oxygen Concentration - - Weight 97.2 kg (214 lb 4.8 oz) 04/15/2014 10:54 AM EDT Height - - Body Mass Index 32.59 02/21/2014 11:18 AM EDT documented in this encounter Progress Notes * Flash Rivas MD - 04/15/2014 1:27 PM EDT Mr. Ortez returns to clinic today. He continues to complain of left groin intermittent swelling and discomfort. He underwent CT scan evaluation today. On exam, BP 149/99 Pulse 71 Temp 36.4 ??C (97.5 ??F) (Oral) Resp 18 Wt 97.206 kg (214 lb 4.8 oz) SpO2 98% Abdomen soft, NT/ND, no masses. Inguinal inspection reveals suggestion of very small possible impulsivity in left inguinal canal, normal on right. 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 Assessment/Plan: Mr. Ortez is a 63 year old male with a very small left inguinal hernia, symptomatic. We will plan on an open left inguinal hernia repair and discussed the risks and benefits of thissurgery including risks of bleeding, infection, hernia recurrence, and postoperative discomfort. Toensure no malignancy in left kidney, we will obtain an abdominal MRI renal mass protocol - if suggestive of RCC, may need urology workup and coordination with potential urologic oncology service. Will follow-up on MRI with Mr. Ortez via phone once results available. documented in this encounter Plan of Treatment Scheduled Procedures Name Priority Associated Diagnoses Date/Ti wv EGD, UPPER GI ENDOSCOPY (WRV U 2.09) Esophageal dysphagia Encounter for colorectal cancer screening COLONOSCOPY, DIAGNOSTIC (WRV U 3.26) Esophageal dysphagia Encounter for colorectal cancer screening documented as of this encounter Procedures Procedure Name Priority Date/Time Associated Diagnosis Comments CT ABDOMEN AND PELVIS W CONTRAST Routine 04/15/2014 10:24 AM EDT Left groin pain CREATININE STAT 04/15/2014 9:11 AM EDT Left groin pain documented in this encounter Results * CT [...] reviewed by the attending Flash Rivas MD [facility] CT ORDERABLES * Creatinine (04/15/2014 9:11 AM EDT) Creatinine 1.01 0.80 - 1.50 mg/dL [facility] Comment: Please note that the pediatric reference intervals supplied above were not validated at [facility]. Results from pediatric patients should be interpreted in conjunction to the patient's age, height and muscle mass. Est Glomerular Filtration Rate >60 >=60 [facility] Comment: This estimated GFR (eGFR) value was [...] the following links into your internet browser. [email or web address] Blood specimen (specimen) 04/15/2014 9:11 AM EDT 04/15/2014 9:15 AM EDT Narrative Resulting Agency Comment Spec In Lab Flash Rivas MD CHEMISTRY ORDERABLES Performing Organization Address City/State/[facility] Co nv Phone Number [facility] documented in this encounter Visit Diagnoses Diagnosis Left groin pain Abdominal pain, left lower quadrant Left inguinal hernia Inguinal hernia without mention of obstruction or gangrene, unilateral or unspecified, (not specified as recurrent) Left renal mass Unspecified disorder of kidney and ureter documented in this encounter Care Teams Security Guards Dispatcher Relationship Specialty Start Date End Date Ivanna Hughes APRN PCP - General 05/19/11 09/10/15 documented as of this encounter
[2024-07-19 17:12] LABS: Hemoglobin A1C 5.4 % (<5.7)
[2024-07-20 10:51] LABS: Lyme Ab w Rflx to Lyme Confirm Negative (Negative)
== END 2024-07-19 16:46 | disposition home or self-care (01) ==
LOC: NCHCN 16:45
PROVIDERS: PCP Physician Assistant; Visit Provider Physician Assistant
DX: G62.9 Polyneuropathy, unspecified (principal); R73.03 Prediabetes
CPT/HCPCS: 83036; 86618

== ENCOUNTER 2024-07-23 01:17 | Outpatient (CLI) | payer OTHER, SELFPAY ==
--- NOTE | 2024-07-23 | DI.RAD_ITS ---
Exam(s) XR SHOULDER LT COMPLETE 2+V EXAM: XR SHOULDER LT COMPLETE 2+V CLINICAL HISTORY: M25.512 Pain in left shoulder, fall onto left shoulder last week, history. TECHNIQUE: 2D digital imaging was performed. Five views. COMPARISON: CR XR SHOULDER LT COMPLETE 2+V from 04/22/2023 FINDINGS: BONES: No acute fracture is present. No bony destructive lesion is seen. JOINTS: No dislocation present. Stable appearance reverse shoulder prosthesis. Mild degenerative ch anges of the AC joint. SOFT TISSUE: Normal. IMPRESSION: Stable appearance of shoulder prosthesis. No acute abnormality. DATA REPOSITORY: RADIATION DOSE DELIVERED:
--- NOTE | 2024-07-23 | DI.RAD_ITS ---
Exam(s) XR HIP LT COMPLETE AP PELVIS EXAM: XR HIP LT COMPLETE AP PELVIS CLINICAL HISTORY: M25.552 Pain in left hip, fall a week ago. TECHNIQUE: 2D digital imaging was performed. Three views. CT CT ABDOMEN PELVIS W from 03/06/2021 FINDINGS: BONES: No acute fracture is present. No bony destructive lesion is seen. JOINTS: No dislocation present. The SI joints and pubic symphysis are intact. Left hip prosthesis ghanshyam w satisfactory alignment. No abnormal surrounding lucencies. Moderate narrowing of right hip joint space. SOFT TISSUE: Normal. IMPRESSION: Unremarkable left hip prosthesis. Moderate degenerative changes of the right hip. DATA REPOSITORY: RADIATION DOSE DELIVERED:
--- OUTSIDE RECORDS SUMMARY | 2024-07-23 01:21 | XMS_ITS | Encounter Summary ---
Author Organization [facility] [address] [place] [address] Care Team Providers Care Sanitary Inspector Name Role Phone Harjit Mcneil Primary Care Provider [phone] Encounter Details Date Type Department Care Team (Late st Contact Info) Description 10/07/2023 Telephone [facility] [place] [id number] Иван Spence Social History Tobacco Use Types [...] EST Referral sent again, transmission confirmed to [facility] documented in this encounter Plan of Treatment Scheduled Procedures Name Priority Associated Diagnoses Date/Ti me EGD, UPPER GI ENDOSCOPY (WRV U 2.09) Esophageal dysphagia Encounter for colorectal cancer screening COLONOSCOPY, DIAGNOSTIC (WRV U 3.26) Esophageal dysphagia Encounter for colorectal cancer screening documented as of this encounter Visit Diagnoses Not on filedocumented in this encounter Care Teams Sanitary Inspector Relationship Specialty Start Date End Date Harjit Mcneil PA [address] [place] [address] PCP - General Internal Medicine 07/11/23 documented as of this encounter
--- OUTSIDE RECORDS SUMMARY | 2024-07-23 01:21 | XMS_ITS | Encounter Summary ---
Author Organization [facility] [address] [place] [address] Care Team Providers Care Roof Slater Name Role Phone Tarun Harjit URIAS Primary Care Provider [phone] Encounter Details Date Type Department Care Team (Late st Contact Info) Description 04/01/2024 Telephone [facility] [place] [address] Christine Bunn, RN Social History [...] to be sent to PCP and Dr. Danileson. Reviewed [facility] no EMG/NCS results found. Pt reports PCP had not rec'd results yet. Pt wanting to make sure theresults don't affect proceeding with planned 04/07 procedure. Recommended: Pt return call to PCP and [facility] for info, and supplied fax #[phone] for pt to have results sent to [...] on filedocumented in this encounter Care Teams Roof Slater Relationship Specialty Start Date End Date Harjit Mcneil PA [address] [place] [address] PCP - General Internal Medicine 07/11/23 documented as of this encounter
--- OUTSIDE RECORDS SUMMARY | 2024-07-23 01:21 | XMS_ITS | Encounter Summary ---
Author Organization [facility] Address [facility] [place] [address] Care Team Providers Care Drop Forger Helper Name Role Phone Tarun Harjit BRIDGETT Primary Care Provider [phone] Encounter Details Date Type Department Care Team (Latest Contact Info) Description 02/04/2024 1:23 PM EDT - 02/04/2024 11:59 PM EDT Hospital Encounter XRay at [address] [place] [address] Trish Nick MD [facility] [place] [address] Status post total replacement of left hip [...] 2 Views Left (02/04/2024 1:40 PM EDT) Vollee Signature WORKSTATION ID [id number] RAD Anatomical Region Laterality Modality Pelvis, Hip Left Digital Radiogra phy Impressions 02/05/2024 10:21 AM EDT LEFT Unchanged and Uncomplicated total hip arthroplasty Thank you for letting us participate in the care of this patient. ??If you are a health care provider and have any questions regarding this report, please contact the number below. ??For patients who have questions please contact the health director of managed care that requested your imaging first. ? Narrative [...] patients who have questions please contactthe health director of managed care that requested your imaging first. Electronically signed by: Elizabeth Santillan MD, [facility]([phone]), at 02/05/2024 10:21 AM Trish Nick MD IMG DX ORDERABLES documented in this encounter Visit Diagnoses Diagnosis Status post total replacement of left hip documented in this encounter Care Teams Drop Forger Helper Relationship Specialty Start Date End Date Harjit Mcneil PA [address] [place] [address] PCP - General Internal Medicine 07/11/23 documented as of this encounter
--- OUTSIDE RECORDS SUMMARY | 2024-07-23 01:21 | XMS_ITS | Encounter Summary ---
Author Organization [facility] Address [facility] [place] [address] Care Team Providers Care Insole And Heel Stiffener Name Role Phone Tarun Harjit URIAS Primary Care Provider [phone] Reason for Visit * Reason Comments Follow Up Surgery L JOHN ANT, DOS Encounter Details Date Type Department Care Team (Late st Contact Info) Description 02/04/2024 3:00 PM EDT Office [place] [phone] Ilay Peterson MD [facility] DR [place] [address] Status post total replacement of left hip [...] - Dr. Montague Left reverse TSA in [facility] 2019 HPI: Shree Ortez Jr. is [...] periprosthetic complication. Questionnaire Responses: 01/01/2018 10:43 AM [facility] Surgical Postop Visit Pain in other HIP None Back pain at this moment Very mild 01/01/2018 10:41 AM [facility] HOOS JR Scores 64.66 01/01/2018 10:41 AM Spine [facility] Response HOOS JR Scores 64.66 ASSESSMENT/PLAN: [...] hip documented in this encounter Care Teams Insole And Heel Stiffener Relationship Specialty Start Date End Date aHrjit Mcneil PA [address] [place] [address] PCP - General Internal Medicine 07/11/23 documented as of this encounter
--- OUTSIDE RECORDS SUMMARY | 2024-07-23 01:21 | XMS_ITS | Encounter Summary ---
[place] [address] Care Team Providers Care Cured Meat Packing Supervisor Name Role Phone Harjit Mcneil Primary Care Provider [phone] Encounter Details Date Type Department Care Team [...] on filedocumented in this encounter Care Teams Cured Meat Packing Supervisor Relationship Specialty Start Date End Date Harjit Mcneil PA [address] [place] [address] PCP - General Internal Medicine 07/11/23 documented as of this encounter
--- OUTSIDE RECORDS SUMMARY | 2024-07-23 01:21 | XMS_ITS | Encounter Summary ---
[place] [address] Care Team Providers Care Scientific Artist Name Role Phone Harjit Mcneil Primary Care Provider [phone] Encounter Details Date Type Department Care Team [...] on filedocumented in this encounter Care Teams Scientific Artist Relationship Specialty Start Date End Date Harjit Mcneil PA [address] [place] [address] PCP - General Internal Medicine 07/11/23 documented as of this encounter
--- OUTSIDE RECORDS SUMMARY | 2024-07-23 01:21 | XMS_ITS | Encounter Summary ---
Author Organization [facility] [place] [address] Care Team Providers Care Para Operator Name Role Phone Harjit Mcneil Primary Care Provider [phone] Reason for Visit * Auth/Cert (Routine) Specialty [...] MD [facility] [place] [address] [facility] Referral ID Status Reason Start Date Expiration Date Visits Re quested Visits Authorized [id number] 1 1 Encounter Details Date Type Department Care Team (Late st Contact Info) Description 04/07/2024 1:15 PM EDT Ancillary [place] [address] Kyle Danielson MD [facility] [place] [address] Social History Tobacco Use Types Packs/Day Years [...] Clinic C-Arm (04/07/2024 2:36 PM EDT) Narrative [facility] - 04/07/2024 2:36 PM EDT See PACS for result report. Kyle Danielson MD [facility] FILM LIBRARY ORD ERABLES [place] documented in this encounter Visit Diagnoses Not on filedocumented in this encounter Care Teams Para Operator Relationship Specialty Start Date End Date Harjit Mcneil PA [address] [place] [address] PCP - General Internal Medicine 07/11/23 documented as of this encounter
--- OUTSIDE RECORDS SUMMARY | 2024-07-23 01:21 | XMS_ITS | Encounter Summary ---
Author Organization [facility] [place] [address] Care Team Providers Care Dorr Operator Name Role Phone TarunHarjit BRIDGETT Primary Care Provider [phone] Encounter Details Date Type Department Care Team (Late st Contact Info) Description 01/22/2024 Orders [place] [phone] Ilya Peterson MD [facility] [place] [address] Status post total replacement of left hip [...] Left (02/04/2024 1:40 PM EDT) WORKSTATION ID [id number] RAD Anatomical Region Laterality Modality Pelvis, Hip Left Digital Radiogra phy Impressions 02/05/2024 10:21 AM EDT LEFT Unchanged and Uncomplicated total hip arthroplasty Thank you for letting us participate in the care of this patient. ??If you are a health care provider and have any questions regarding this report, please contact the number below. ??For patients who have questions please contact the health health care sanitary technician that requested your imaging first. ? Narrative [...] patients who have questions please contactthe health health care sanitary technician that requested your imaging first. 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
--- OUTSIDE RECORDS SUMMARY | 2024-07-23 01:21 | XMS_ITS | Encounter Summary ---
Author Organization [facility] Address [facility] [place] [address] Care Team Providers Care Building Analyst/Supervisor Name Role Phone Harjit Mcneil Primary Care Provider [phone] Reason for Referral * Physical Therapy (Routine) - Closed Specialty Diagnoses / Procedures Referred By Contac t Referred To Contact Physical Therapy Diagnoses Spinal stenosis, lumbar region with neurogenic claudication Difficulty walking Kyle Danielson MD [facility] [place] [address] Unknown None Referral ID Status Reason Start Date Expiration Date V isits Requested Visits Authorized [id number] Closed Evaluate and Treat Non PCP 12/02/2023 05/30/2024 12 12 Reason for Visit * Reason Comments Establish Care Back Pain Lower back, going do wn legs at times * Consultation (Routine) - Closed Specialty Diagnoses / Procedures Referred By Contac t Referred To Contact Pain and Spine Center Diagnoses Spinal stenosis, lumbar region with neurogenic claudication Nina Redmond APRN [facility] [place] [address] [facility] [place] [address] Referral ID Status Reason Start Date Expiration Date Visits Requested Visits Authorized [id number] Closed Pain Interventional Procedure 3 09/17/2024 1 1 Encounter Details Date Type Department Care Team (Late st Contact Info) Description 12/02/2023 11:00 AM EDT Office Visit [place] [address] Kyle Danielson MD [facility] PAIN MANAGEMENT [place] [id number] Spinal stenosis, lumbar region with neurogenic claudication; [...] Bautista MD - 12/02/2023 11:00 AM EDT [facility] Initial Consultation Note Name: Shree Ortez Jr. : 1950 Consulting Physician/Provider: Seeing at the request of Nina Redmond APRN [facility] [place] [address] Chief Complaint: Low back pain History of [...] Ms. Redmond recommended he be seen in [facility] since it is closer to his house. He said there was lots of difficulty getting the referral sent to [facility], and it took many weeks to hear back. Then finally they said they had no openings until January. So he decided to come to [facility] [place]. Last note from Nina Redmond, ELECTRIC MOTOR TESTER 09/18/23 Shree Ortez Jr. is a pleasant [...] that interventional injection treatment be performed at [facility]. I think this is quite reasonable [...] being performed secondary to pain Other Treatment: Biologist Helpful? No History of Interventional Procedures/Surgery: Prior Surgery: No Injection History (date, procedure, %improvement): None Chart review: Today I have reviewed available medical information in the patient's medical record at [facility] including relevant provider notes, laboratory work, and [...] was completed on 07/03/23 at Outside Facility [facility] . In addition to the formal radiology [...] documented. Kyle Danielson MD Pain Management Center Nurse'S Companion of Anesthesiology [facility] [employer] [facility] [address] [address] / [facility] CC: Nina Redmond, VERONICA [facility] [place] [address] documented in this encounter Plan of Treatment [...] syndrome documented in this encounter Care Teams Building Analyst/Supervisor Relationship Specialty Start Date End Date Harjit Mcneil PA [address] [place] [address] PCP - General Internal Medicine 07/11/23 documented as of this encounter
--- OUTSIDE RECORDS SUMMARY | 2024-07-23 01:21 | XMS_ITS | Encounter Summary ---
Author Organization [facility] Address [facility] [place] [place] [address] Care Team Providers Care Manager Talent Acquisition Name Role Phone Tarun Harjit URIAS Primary Care Provider [phone] Reason for Visit * Reason Comments Back Pain Follow-up S/p LESI Lo wer back pain Encounter Details Date Type Department Care Team (Late st Contact Info) Description 04/30/2024 4:00 PM EDT Office Visit [place] [address] Kyle Danielson MD [facility] [place] [address] Chronic pain syndrome; Radiculopathy of lumbar region; [...] Danielson MD - 04/30/2024 4:00 PM EDT [facility] follow-up visit note Name: Shree Ortez Jr. : 1950 Consulting Physician/Provider: Seeing at the request of Harjit Mcneil PA [address] [place] [address] Chief Complaint: Low back pain History of [...] Ms. Redmond recommended he be seen in [facility] since it is closer to his house. He said there was lots of difficulty getting the referral sent to [facility], and it took many weeks to hear back. Then finally they said they had no openings until January. So he decided to come [place] [facility] [place]. Last note from Nina Redmond, MARKETING RECRUITER 09/18/23 Shree Ortez Jr. is a pleasant [...] interventional injection treatment be performed at [facility]. I think this is quite [...] being performed secondary to pain Other Treatment: Locomotive Mechanic Helpful? No History of Interventional Procedures/Surgery: Prior Surgery: No Injection History (date, procedure, %improvement): None Chart review: Today I have reviewed available medical information in the patient's medical record at [facility] including relevant provider notes, laboratory work, and [...] negative with negative facet loading tests Neurologic: warranty clerk - grossly intact Reflexes - 1+ and symmetric in bilateral patellae, and Achilles. No ankle clonus. Motor - 5/5 in all planes of motion in both lower extremities. Sensation - Intact to light touch throughout lower extremities Gait/Station: Transitions from exam room chair to table without difficulty. Diagnostic Tests: Most recent Lumbar Spine MRI was completed on 07/03/23 at Outside Facility [facility] . In addition to the formal [...] future. Kyle Danielson MD Pain Management Center Planting Material Carrier of Anesthesiology [facility] [address] [address] / [employer] CC: Harjit Mcneil PA [address] [place] [address] documented in this encounter Plan of Treatment [...] claudication documented in this encounter Care Teams Manager Talent Acquisition Relationship Specialty Start Date End Date Harjit Mcneil PA [address] [place] [address] PCP - General Internal Medicine 07/11/23 documented as of this encounter
--- OUTSIDE RECORDS SUMMARY | 2024-07-23 01:21 | XMS_ITS | Encounter Summary ---
[place] [address] Care Team Providers Care Microsoft Infrastructure Consultant Name Role Phone Harjit Mcneil Primary Care Provider [phone] Reason for Referral * Consultation (Routine) - Authorized Specialty Diagnoses / Procedures Referred By Contlesli t Referred To Contact Neurology Diagnoses Ataxia, unspecified Harjit Mcneil PA [address] [place] [address] [facility] [address] [place] [phone] Referral ID Status Reason Start Date Expiration Date Visits Requested Visits Authorized [id number] Authorized Consult, Test & Treat 07/21/2024 07/21/2025 1 1 Encounter Details Date Type Department Care Team (Latest Contact Info) Description 07/21/2024 Transcribe Orders eDH Incoming Referrals [phone] Harjit Mcneil PA [address] [place], [place] [id number] Ataxia, unspecified Social History Tobacco Use Types Packs/Day Years [...] Schedule Referral to Neurology Outpatient Referral Routine Ataxia, unspecified Ordered: 07/21/2024 documented as of this encounter Visit Diagnoses Diagnosis Ataxia, unspecified documented in this encounter Care Teams Microsoft Infrastructure Consultant Relationship Specialty Start Date End Date Harjit Mcneil PA [address] [place] [address] PCP - General Internal Medicine 07/11/23 documented as of this encounter
--- OUTSIDE RECORDS SUMMARY | 2024-07-23 01:21 | XMS_ITS | Encounter Summary ---
[place] [address] Care Team Providers Care Director Presales Name Role Phone Harjit Mcneil Primary Care Provider [phone] Encounter Details Date Type Department Care Team [...] on filedocumented in this encounter Care Teams Director Presales Relationship Specialty Start Date End Date Harjit Mcneil PA [address] [place] [address] PCP - General Internal Medicine 07/11/23 documented as of this encounter
--- OUTSIDE RECORDS SUMMARY | 2024-07-23 01:21 | XMS_ITS | Encounter Summary ---
[place] [address] Care Team Providers Care Medical Supply Technician Name Role Phone Tarun Harjit URIAS Primary Care Provider [phone] Reason for Referral * Consultation (Routine) - Authorized Specialty Diagnoses / Procedures Referred By Ugo t Referred To Contact Neurology Diagnoses Peripheral polyneuropathy Vicente Molina MD [address] [place] [address] [facility] Neurology [address] [place] [phone] Referral ID Status Reason Start Date Expiration Date Visits Requested Visits Authorized [id number] Authorized Consult, Test & Treat 06/29/2024 06/29/2025 1 1 Encounter Details Date Type Department Care Team (Latest Contact Info) Description 06/29/2024 Transcribe Orders eDH Incoming Referrals [phone] Vicente Molina MD [address] [place] [address] Peripheral polyneuropathy Social History Tobacco Use Types [...] neuropathy documented in this encounter Care Teams Medical Supply Technician Relationship Specialty Start Date End Date Harjit Mcneil PA [address] [place] [address] PCP - General Internal Medicine 07/11/23 documented as of this encounter
--- OUTSIDE RECORDS SUMMARY | 2024-07-23 01:21 | XMS_ITS | Encounter Summary ---
Author Organization [facility] [place] [address] Care Team Providers Care Shipping Hand Name Role Phone Harjit Mcneil Primary Care Provider [phone] Reason for Visit * Auth/Cert (Routine) Specialty Diagnoses / Procedures Referred By Ugo t Referred To Contact Diagnoses Spinal stenosis, lumbar region with neurogenic claudication Radiculopathy of lumbar region lumbar spinal stenosis with neurogenic claudication, lumbar radiculopathy Procedures PRO INJECTION DX/THER SBST INTRLMNR LMBR/SAC W/IMG GDN INJECTION, EPIDURAL, LUMBAR OR SACRAL (CAUDAL), WITH IMAGING GUIDANCE (WRVU 1.8) Kyle Danielson MD [facility] [place] [address] [facility] Referral ID Status Reason Start Date Expiration Date Visits Re quested Visits Authorized [id number] 1 1 Encounter Details Date Type Department Care Team (Late st Contact Info) Description 04/07/2024 1:30 PM EDT - 04/07/2024 2:00 PM [place] [address] Kyle Danielson MD [facility] [place] [address] INJECTION, EPIDURAL, LUMBAR OR SACRAL (CAUDAL), WITH [...] date: 04/07/2024 Attending Physician: Kyle Danielson MD [facility] PREPROCEDURE HISTORY AND [...] (5' 8) Wt 95.3 kg (210 lb) QkC906% BMI 31.93 kg/m?? Pain Ratin/10 Please see [...] Fellow Physician [facility] [place] [address] / documented in this encounter Miscellaneous Notes * Op Note - Kyle Danielson MD - 04/07/2024 1:24 PM EDT Pain Management Operative Note Patient Name: Shree Ortez JrAlisa : [id number] MR#: [id number] Case Date: 04/07/2024 Surgeon: Surgeons and Role: [...] procedure. Kyle Danielson MD Pain Management Center Horse Buyer of Anesthesiology [facility] [address] [address] / [facility] CC: Unknown None documented in this encounter [...] Injection Dx/Ther Sbst Intrlmnr Lmbr/Sac W/Img Gdn (09420) 04/07/2024 1:15 PM EDT Spinal stenosis, lumbar [...] tunde) documented in this encounter Care Teams Shipping Hand Relationship Specialty Start Date End Date Harjit Mcneil PA [address] [place] [address] PCP - General Internal Medicine 07/11/23 documented as of this encounter
--- OUTSIDE RECORDS SUMMARY | 2024-07-23 01:21 | XMS_ITS | Encounter Summary ---
Author Organization [facility] [place] [address] Care Team Providers Care Manager Event Name Role Phone Harjit Mcneil Primary Care Provider [phone] Reason for Visit * Auth/Cert (Routine) Specialty Diagnoses / Procedures Referred By Ugo t Referred To Contact Diagnoses Spinal stenosis, lumbar region with neurogenic claudication Radiculopathy of lumbar region lumbar spinal stenosis with neurogenic claudication, lumbar radiculopathy Procedures PRO INJECTION DX/THER SBST INTRLMNR LMBR/SAC W/IMG GDN INJECTION, EPIDURAL, LUMBAR OR SACRAL (CAUDAL), WITH IMAGING GUIDANCE (WRVU 1.8) Kyle Danielson MD [facility] [place] [address] [facility] Referral ID Status Reason Start Date Expiration Date Visits Re quested Visits Authorized [id number] 1 1 Encounter Details Date Type Department Care Team (Latest Contact Info) Description 04/07/2024 12:23 PM EDT - 04/07/2024 1:32 PM EDT Hospital En[place] [address] Kyle Danielson MD [facility] [place] [address] Spinal stenosis, lumbar region with neurogenic claudication; [...] as of this encounter H&P Notes * dEuardo Bautista MD - 04/06/2024 1:58 PM EDT Patient Name: Shree Ortez Jr. Patient Age: 73 y.o. Birthdate: 1950 Admit date: 04/07/2024 Attending Physician: Kyle Danielson MD [facility] PREPROCEDURE HISTORY AND [...] (5' 8) Wt 95.3 kg (210 lb) HfX103% BMI 31.93 kg/m?? Pain Ratin/10 Please see [...] Fellow Physician [facility] [place] [address] / documented in this encounter Miscellaneous Notes * Op Note - Kyle Danielson MD - 04/07/2024 1:24 PM EDT Pain Management Operative Note Patient Name: Shree Ortez JrAlisa : [id number] MR#: [id number] Case Date: 04/07/2024 Surgeon: Surgeons and Role: [...] procedure. Kyle Danielson MD Pain Management Center Care Professional of Anesthesiology [facility] [address] [address] / [facility] CC: Unknown None documented in this encounter [...] Injection Dx/Ther Sbst Intrlmnr Lmbr/Sac W/Img Gdn ([id number]) 04/07/2024 1:15 PM EDT Spinal stenosis, lumbar [...] tunde) documented in this encounter Care Teams Manager Event Relationship Specialty Start Date End Date Harjit Mcneil PA [address] [place] [address] PCP - General Internal Medicine 07/11/23 documented as of this encounter
--- OUTSIDE RECORDS SUMMARY | 2024-07-23 01:21 | XMS_ITS | Clinical Summary ---
Author Organization [facility] Address [facility] [place] [address] Care Team Providers Care Quotation Clerk Name Role Phone Harjit Mcneil Primary [...] Encounters Date Type Department Care Team Description 07/21/2024 Transcribe Orders eDH Incoming Referrals [phone] Harjit Mcneil PA Ataxia, unspecified 06/29/2024 Transcribe Orders eDH Incoming Referrals [phone] Vicente Molina MD Peripheral polyneuropathy 04/30/2024 4:00 PM EDT Office Visit [facility] [place] [address] Kyle Danielson MD Chronic pain syndrome; Radiculopathy [...] history exists Medical Devices Implanted Type Area Plant Technician/Control Room Operator Device Identifier Shelf Expiration Date Model / Serial / Lot Mesh,Bard,Sft ,3x6in ([id number]) - [id number] Implanted:Qty : 1 on 07/07/2015 by Flash Rivas MD at [facility] IMPLANTS Left: Inguinal [employer] - 1825 03/19/2020 [id number] / / [id number] Inser,Altrx,N t,[id number] ([id number]) (Autoreq) - [id number] Implanted:Qty : 1 on 01/15/2017 by Pineda Montague MD at [facility] IMPLANTS Left: Hip DO NOT USE Depuy Apprentice Carpenter - 3527 11/19/2021 4 / / [id number] Liner,Oblong,Hl ,Bradley,Pos,Stp ([id number]) (Autoreq) - [id number] Implanted:Qty : 1 on 01/15/2017 by Pineda Montague MD at [facility] IMPLANTS Left: Hip DO NOT USE Depuy Apprentice Carpenter - 3527 09/21/2026 0 / / [id number] Cup,Hip,Acetb ,Grptn,100,54 mm ([id number]) (Autoreq) - [id number] Implanted:Qty : 1 on 01/15/2017 by Pineda Montague MD at [facility] IMPLANTS Left: Hip DO NOT USE Depuy Apprentice Carpenter - 3527 11/19/2026 4 / / [id number] Head,Dlta,Crm c,+1.5,12/14, 36mm ([id number]) (Autoreq) - [id number] Implanted:Qty : 1 on 01/15/2017 by Pineda Montague MD at [facility] IMPLANTS Left: Hip DO NOT USE Depuy Apprentice Carpenter - 3527 10/22/2021 0 / / [id number] Stem,Crl2.Lat ,Coxa,Sz12 ([id number]) (Autoreq) - [id number] Implanted:Qty : 1 on 01/15/2017 by Pineda Montague MD at [facility] IMPLANTS Left: Hip DO NOT USE Depuy Apprentice Carpenter - 3527 09/21/2021 [id number] / / [id number] Procedures Procedure Name Priority Date/Time Associated Diagnosis Comments HC VENIPUNCTURE STAT 08/09/2020 1:03 PM EST Renal cell carcinoma, unspecified laterality COLONOSCOPY Routine 09/26/2014 3:12 PM EST from Last 3 Months or Most Recently Relevant to Health Maintenance Results * (ABNORMAL) Basic Metabolic Panel (non-fasting) (08/09/2020 1:03 PM EST) Glucose 103 65 - 199 mg/dL [facility] Comment:Diabetes: >=200 mg/d L plus symptoms Blood Urea Nitrogen 20 10 - 20 mg/dL [facility] Creatinine 1.20 0.80 - 1.50 mg/dL [facility] Sodium 140 135 - 145 mmol/L [facility] Potassium 4.3 3.5 - 5.0 mmol/L [facility] Comment: Please note: ??Patients with WBC >100,000 may have falsely elevated Potassium levels. ??For accurate Potassium quantification in these patients send serum separator tube (gold top) for subsequent determinations. ??Contact the Clinical Chemistry Laboratory if there are any questions. Chloride 108(H) 98 - 107 mmol/L [facility] Carbon Dioxide 25 22 - 31 mmol/L [facility] Anion Gap 7 5 - 15 mmol/L [facility] Calcium 9.1 8.5 - 10.5 mg/dL [facility] Est Glomerular Filtration Rate 61 >=60 mL/min/1. 73 m?? [facility] Comment: The eGFR was calculated using the CKD-EPI equation. As with all creatinine based estimates of kidney function, eGFR values calculated with the CKD-EPI equation are not accurate in patients with acute kidney failure, extremes of body mass or the acutely ill. [email or web address]/Entrustetnkf eGFR 71 >=60 mL/min/1. 73 m?? [facility] Comment: The eGFR was calculated using the CKD-EPI equation. As with all creatinine based estimates of kidney function, eGFR values calculated with the CKD-EPI equation are not accurate in patients with acute kidney failure, extremes of body mass or the acutely ill. [email or web address]/DHnkf Blood specimen (specimen) 08/09/2020 1:03 PM EST 08/09/2020 1:11 PM EST Narrative Resulting Agency Comment Spec In Lab Toni Akbar MD CHEMISTRY ORDERABL ES Performing Organization Address City/State/[facility] Co de Phone Number [facility] [place] [address] * COLONOSCOPY (09/26/2014 3:12 PM EST) COLONOSCOPY [facility] Endoscopy Patient Name: Shree Ortez ? Procedure Date: 09/26/2014 3:12 PM ? Date of : 1950 ? Age: 64 ? Order #: [id number] ? Procedure: ? Colonoscopy Indications: ? Screening [...] Documents on File Type Date Recorded Patient Rn International Expl anation Advance Directives and Jason rosa Will 06/09/2014 3:32 PM 06/09/14 * Full [...] 6:28 AM 06/07/2014 11:34 AM Care Teams Quotation Clerk Relationship Specialty Start Date End Date Harjit Mcneil PA [address] [facility] [address] [place] [address] PCP - General Internal Medicine 07/11/23
--- OUTSIDE RECORDS SUMMARY | 2024-07-23 01:21 | XMS_ITS | Encounter Summary ---
Author Organization [facility] [place] [address] Care Team Providers Care Dental Nurse Name Role Phone Harjit Mcneil Primary Care Provider [phone] Encounter Details Date Type Department Care Team (Latest Contact Info) Description 02/06/2024 1:00 PM EDT TH Visit (TeleHealth) [facility] [place] [address] [facility] [place] [address] Spinal stenosis, lumbar region with neurogenic claudication; [...] Danielson MD - 02/06/2024 1:00 PM EDT [facility] follow-up visit note Name: Shree Ortez Jr. : 1950 Consulting Physician/Provider: Seeing at the request of Harjit Mcneil PA [address] [place] [address] Chief Complaint: Low back pain History of [...] of difficulty getting the referral sent to [facility], and it took many weeks to hear back. Then finally they said they had no openings until January. So he decided to come to [facility]. Last note from Nina Redmond, SPRING FITTER 09/18/23 Shree Ortez Jr. is a pleasant [...] that interventional injection treatment be performed at [facility]. I think this is quite reasonable [...] being performed secondary to pain Other Treatment: Hospitalist Physician Helpful? No History of Interventional Procedures/Surgery: Prior Surgery: No Injection History (date, procedure, %improvement): None Chart review: Today I have reviewed available medical information in the patient's medical record at [facility]), including relevant provider notes, laboratory work, and [...] was completed on 07/03/23 at Outside Facility [facility] . In addition to the [...] injection. Kyle Danielson MD [facility] [employer] Interpreter of Anesthesiology [employer] [address] [phone] / [facility] CONSENT FOR TELEHEALTH Telemedicine Appointment Although not required in [place], [place] has a telemedicine consent requirement. We are working on an automated process to obtain this I obtained the patient's consent to receiving health care services at [facility] through telemedicine. We discussed the opportunities and [...] form is available for patient's review in [facility]'s patient portal, [facility]. Opportunities include: improved access to medical care; limiting spread of COVID virus; increased patient convenience Limitations include: technical difficulties; need for a subsequent in-person visit due to transmission quality problems or need for physical examination not possible CC: Harjit Mcneil PA [address] [place] [address] documented in this encounter Plan of Treatment [...] myelopathy documented in this encounter Care Teams Dental Nurse Relationship Specialty Start Date End Date Harjit Mcneil PA [address] [place] [address] PCP - General Internal Medicine 07/11/23 documented as of this encounter
--- OUTSIDE RECORDS SUMMARY | 2024-07-23 01:22 | XMS_ITS | Encounter Summary ---
Author Organization [facility] Address [facility] [place] [address] Care Team Providers Care Is Analyst Name Role Phone Duke Ramos MD Primary Care Provider [phone] Reason for Visit * Reason Comments Left Hip Pain left JOHN DOS 01/15/17 Encounter Details Date Type Department Care Team (Late st Contact Info) Description 06/19/2017 3:30 PM EDT [place] [phone] Pineda Montague MD S/P total hip arthroplasty, [...] left documented in this encounter Care Teams Is Analyst Relationship Specialty Start Date End Date Duke Ramos MD [address] [place] [address] PCP - General Family Medicine 08/23/16 06/28/18 documented as of this encounter
--- OUTSIDE RECORDS SUMMARY | 2024-07-23 01:22 | XMS_ITS | Encounter Summary ---
Author Organization [facility] [place] [address] Care Team Providers Care Drafter Apprentice Name Role Phone Norma Murdock APRN Primary Care Provider [phone] Encounter Details Date Type Department Care Team (Late st Contact Info) Description 08/16/2020 2:40 PM EST Ancillary Procedure Radiology Library at [facility] [place] [phone] Norma Murdock APRN [address] [place] [address] Social History Tobacco Use Types [...] DX Chest (08/16/2020 2:36 PM EST) [facility]ative [facility] 08[facility]16/[facility] 2:36 PM EST This exam is auto-finalizing. It's purpose is for storage only. Norma Murdock APRN [place] FILM LIBRARY ORD ERABLES [place], [place] documented in this encounter Visit Diagnoses Not on filedocumented in this encounter Care Teams Drafter Apprentice Relationship Specialty Start Date End Date Norma Murdock APRN [address] [place] [address] PCP - General Family Medicine 05/22/20 07/10/23 documented as of this encounter
--- OUTSIDE RECORDS SUMMARY | 2024-07-23 01:22 | XMS_ITS | Encounter Summary ---
Author Organization [facility] Address [facility] [place] [address] Care Team Providers Care Package Pick Up Name Role Phone Duke Ramos MD Primary Care Provider [phone] Encounter Details Date Type Department Care Team (Latest Contact Info) Description 01/01/2018 9:43 AM EDT - 01/01/2018 11:59 PM EDT Hospital Encounter XRay at [address] [place] [address] Pineda Montague MD History of total left [...] findings, YUDELKA DODSON at 01/01/2018 11:55 AM Narrative 01/01/2018 [...] replacement documented in this encounter Care Teams Package Pick Up Relationship Specialty Start Date End Date Duke Ramos MD [address] [place] [address] PCP - General Family Medicine 08/23/16 06/28/18 documented as of this encounter
--- OUTSIDE RECORDS SUMMARY | 2024-07-23 01:22 | XMS_ITS | Encounter Summary ---
Author Organization [facility] Address [facility] [place] [address] Care Team Providers Care Manager Rn Name Role Phone Norma Murdock APRN Primary Care Provider [phone] Encounter Details Date Type Department Care Team (Latest Contact Info) Description 08/09/2020 12:24 PM EST - 08/09/2020 1:08 PM [facility] Hospital Encounter XRay at [address] [place] [address] Toni Akbar MD [facility] [place] [address] Renal cell carcinoma, unspecified laterality Discharge Disposition: [...] ? Electronically signed by: Nafisa Dobbs MD, [facility] ([phone]), at 08/09/2020 2:14 PM Narrative 08/09/2020 2:14 [...] CT scan of June 2018. Procedure Note Nafias Dobbs MD - 08/09/2020 EXAMINATION: XR CHEST [...] below. Electronically signed by: Nafisa Dobbs MD, [facility]([phone]), at 08/09/2020 2:14 PM Toni Akbar MD IMG DX ORDERABLES documented in this encounter Visit Diagnoses Diagnosis Renal cell carcinoma, unspecified laterality documented in this encounter Care Teams Manager Rn Relationship Specialty Start Date End Date Norma Murdock APRN [address] [place] [address] PCP - General Family Medicine 05/22/20 07/10/23 documented as of this encounter
--- OUTSIDE RECORDS SUMMARY | 2024-07-23 01:22 | XMS_ITS | Encounter Summary ---
Author Organization [facility] Address [facility] [place] [address] Care Team Providers Care Ring Facer Name Role Phone Duke Ramos MD Primary Care Provider [phone] Reason for Visit * Reason Comments Follow-up Encounter Details Date Type Department Care Team (Late st Contact Info) Description 06/19/2017 2:00 PM EDT Office Visit Urology at [facility] [place] [address] Toni Akbar MD [facility] [address] Renal cell carcinoma, unspecified laterality Social History [...] 0.27) performed by Pineda Montague MD at [facility] MAIN OR ??? PRO COLONOSCOPY, DIAGNOSTIC N/A 09/26/2014 COLONOSCOPY, DIAGNOSTIC performed by Nina Almaguer MD at [facility] ENDOSCOPY ??? PRO LAP, RADICAL NEPHRECTOMY 06/07/2014 @LAPAROSCOPY, RADICAL NEPHRECTOMY performed by Jarocho Jenkins MD at [facility] MAIN OR ??? PRO REPAIR ING HERNIA, 5+Y/O, REDUCIBL Left 07/07/2015 REPAIR INGUINAL HERNIA, 5 YR OR OLDER, REDUCIBLE performed by Flash Rivas MD at [facility] MAIN OR ??? PRO TOTAL HIP ARTHROPLASTY Left 01/15/2017 @TOTAL HIP ARTHROPLASTY, ANTERIOR APPROACH (WRVU 20.72) performed by Pineda Montague MD at [facility] MAIN OR ??? PRO UPPER GI ENDOSCOPY, BIOPSY N/A 09/26/2014 EGD WITH BIOPSY performed by Nina Almaguer MD at [facility] ENDOSCOPY ??? TOTAL NEPHRECTOMY Left 06/07/14 Social [...] laterality documented in this encounter Care Teams Ring Facer Relationship Specialty Start Date End Date Duke Ramos MD [address] [place] [address] PCP - General Family Medicine 08/23/16 06/28/18 documented as of this encounter
--- OUTSIDE RECORDS SUMMARY | 2024-07-23 01:22 | XMS_ITS | Encounter Summary ---
Author Organization [facility] Address [facility] [place] [address] Care Team Providers Care Clerical Aide Name Role Phone Norma Murdock APRN Primary Care Provider [phone] Encounter Details Date Type Department Care Team (Late st Contact Info) Description 11/05/2021 3:00 PM EST Office Visit General Surgery at [facility] [place] [phone] Flash Rivas MD [facility] [place] [address] Discomfort of left groin Social History Tobacco [...] groin documented in this encounter Care Teams Clerical Aide Relationship Specialty Start Date End Date Norma Murdock APRN [address] [place] [address] PCP - General Family Medicine 05/22/20 07/10/23 documented as of this encounter
--- OUTSIDE RECORDS SUMMARY | 2024-07-23 01:22 | XMS_ITS | Encounter Summary ---
Author Organization [facility] Address [facility] [place] [place] [address] Care Team Providers Care Quality Assurance/R&D Lab Technician Name Role Phone Norma Murdock APRN Primary Care Provider [phone] Reason for Visit * Reason Comments Follow-up Kidney Cancer * Consultation (Routine) - Specialty Diagnoses / Procedures Referred By Ugo t Referred To Contact Urology Diagnoses Malignant neoplasm of left kidney, except renal pelvis Norma Murdock APRN [address] [place] [address] [facility] [place] [address] Referral ID Status Reason Start Date Expiration Date V isits Requested Visits Authorized [id number] Consult, Test & Treat Connection Center PCP Updated and/or Approved 05/19/2020 05/19/2021 12 12 Encounter Details Date Type Department Care Team (Late st Contact Info) Description 08/09/2020 3:00 PM EST [place] [address] Toni Akbar MD [facility] [place] [address] Renal cell carcinoma, unspecified laterality Social History [...] 0.27) performed by Pineda Montague MD at [facility] MAIN OR ??? PRO COLONOSCOPY, DIAGNOSTIC N/A 09/26/2014 ?? COLONOSCOPY, DIAGNOSTIC performed by Nina Almaguer MD at [facility] ENDOSCOPY ??? PRO LAP, RADICAL NEPHRECTOMY ?? 06/07/2014 ?? @LAPAROSCOPY, RADICAL NEPHRECTOMY performed by Jarocho Jenkins MD at [facility] OR ??? PRO REPAIR ING HERNIA, 5+Y/O, REDUCIBL Left 07/07/2015 ?? REPAIR INGUINAL HERNIA, 5 YR OR OLDER, REDUCIBLE performed by Flash Rivas MD at [facility] MAIN OR ??? PRO TOTAL HIP ARTHROPLASTY Left 01/15/2017 ?? @TOTAL HIP ARTHROPLASTY, ANTERIOR APPROACH (WRVU 20.72) performed by Pineda Montague MD at [facility] MAIN OR ??? PRO UPPER GI ENDOSCOPY, BIOPSY N/A 09/26/2014 ?? EGD WITH BIOPSY performed by Nina Almaguer MD at [facility] ENDOSCOPY ??? TOTAL NEPHRECTOMY Left 06/07/14 ?? [...] laterality documented in this encounter Care Teams Quality Assurance/R&D Lab Technician Relationship Specialty Start Date End Date Norma Murdock APRN [address] [place] [address] PCP - General Family Medicine 05/22/20 07/10/23 documented as of this encounter
--- OUTSIDE RECORDS SUMMARY | 2024-07-23 01:22 | XMS_ITS | Encounter Summary ---
Author Organization [facility] [place] [address] Care Team Providers Care Sebd Teacher Name Role Phone Norma Murdock APRN Primary Care Provider [phone] Reason for Visit * Consultation (Routine) - Closed Specialty Diagnoses / Procedures Referred By Ugo maynard Referred To Contact Gastroenterology Diagnoses Dyskinesia of esophagus Norma Murdock APRN [address] [place] [address] [facility] [address] [place] [address] Referral ID Status Reason Start Date Expiration Date V isits Requested Visits Authorized [id number] Closed Consult, Test & Treat Connection Center PCP Updated and/or Approved 08/07/2021 08/07/2022 12 12 Encounter Details Date Type Department Care Team (Late st Contact Info) Description 10/16/2021 1:00 PM EST Office [place] [address] Jennifer Roberts [employer] [address] [place] [address] Esophageal dysphagia; Encounter for colorectal [...] surgical history that includes Lap, Radical Nephrectomy (88424) (06/07/2014); Colonoscopy, Diagnostic (08650) (N/A, 09/26/2014); Upper Gi Endoscopy, Biopsy (27659) (N/A, 09/26/2014); Appendectomy (1972); total nephrectomy (Left, 06/07/14); cyst removal; Repair Ing Hernia, 5+Y/O, Reducibl (54496) (Left, 07/07/2015); (Left, 07/07/2015); Total Hip Arthroplasty (31005) (Left, 01/15/2017); and Radex Hip Unilateral With Pelvis Minimum 4 Views (17448) (Left, 01/15/2017). Family History: Brother- CRC? denies [...] after EGD and colonoscopy Jennifer Roberts APR[place] [facility] [address] documented in this encounter Plan of Treatment Scheduled Orders Name Type Priority Associated Diagnoses Orde r Schedule ENDOSCOPY CASE REQUEST: EGD, UPPER GI ENDOSCOPY, COLONOSCOPY, DIAGNOSTIC Procedures Routine Esophageal dysphagia Encounter for colorectal cancer screening Ordered: 10/16/2021 Scheduled Procedures Name Priority Associated Diagnoses Date/Ti ca EGD, UPPER GI ENDOSCOPY (WRV U 2.09) Esophageal dysphagia Encounter for colorectal cancer screening COLONOSCOPY, DIAGNOSTIC (WRV U 3.26) Esophageal dysphagia Encounter for colorectal cancer screening documented as of this encounter Visit Diagnoses Diagnosis Esophageal dysphagia Dysphagia, pharyngoesophageal phase Encounter for colorectal cancer screening Special screening for malignant neoplasms, colon documented in this encounter Care Teams Sebd Teacher Relationship Specialty Start Date End Date Norma Murdock APRN [address] [place] [address] PCP - General Family Medicine 05/22/20 07/10/23 documented as of this encounter
--- OUTSIDE RECORDS SUMMARY | 2024-07-23 01:22 | XMS_ITS | Encounter Summary ---
Author Organization [facility] [place] [address] Care Team Providers Care Speed Runner Name Role Phone Norma Murdock VERONICA Primary Care Provider [phone] Reason for Referral * Diagnostic Test (Routine) - Closed Specialty Diagnoses / Procedures Referred By Ugo maynard Referred To Contact Radiology Diagnoses Renal cell carcinoma, unspecified laterality Procedures CT Abdomen w Contrast CT Abdomen wwo Contrast Toni Akbar MD [facility] [place] [address] [facility] [place] [address] Referral ID Status Reason Start Date Expiration Date V isits Requested Visits Authorized [id number] Closed Specialty Service Requested 06/21/2020 12/19/2021 1 1 Reason for Visit * Diagnostic Test (Routine) - Closed Specialty Diagnoses / Procedures Referred By Ugo maynard Referred To Contact Radiology Diagnoses Renal cell carcinoma, unspecified laterality Procedures CT Abdomen w Contrast CT Abdomen o Contrast Toni Akbar MD [facility] [place] [address] [facility] [place] [address] Referral ID Status Reason Start Date Expiration Date V isits Requested Visits Authorized [id number] Closed Specialty Service Requested 06/21/2020 12/19/2021 1 1 Encounter Details Date Type Department Care Team (Latest Contact Info) Description 08/09/2020 1:09 PM EST - 08/09/2020 11:59 PM EST Hospital [place] [address] Toni Akbar MD [facility] [place] [address] Renal cell carcinoma, unspecified laterality Discharge Disposition: [...] ? Electronically signed by: Jorge Block MD, [facility] ([phone]), at 08/09/2020 4:15 PM Narrative 08/09/2020 4:15 [...] below. Electronically signed by: Jorge Block MD, [facility]([phone]), at 08/09/2020 4:15 PM Toni Akbar MD [facility] CT ORDERABLES documented in this encounter Visit [...] mLs documented in this encounter Care Teams Speed Runner Relationship Specialty Start Date End Date Norma Murdock APRN [address] [place] [address] PCP - General Family Medicine 05/22/20 07/10/23 documented as of this encounter
--- OUTSIDE RECORDS SUMMARY | 2024-07-23 01:22 | XMS_ITS | Encounter Summary ---
Author Organization [facility] [place] [address] Care Team Providers Care Denial Management Representative Name Role Phone Amelia Goodwin APRN Primary Care Provider + Encounter Details Date Type Department Care Team (Latest Contact Info) Description 06/29/2018 11:30 AM EDT Laboratory Appointment Lab 3L [facility] [place] [address] Renal cell carcinoma, unspecified laterality Social History [...] EDT) Glucose 92 65 - 199 mg/dL [facility] Comment:Diabetes: >=200 mg/d L plus symptoms Blood Urea Nitrogen 19 10 - 20 mg/dL [facility] Creatinine 1.51(H) 0.80 - 1.50 mg/dL [facility] Sodium 140 135 - 145 mmol/L [facility] Potassium 4.8 3.5 - 5.0 mmol/L [facility] Comment: Please note: ??Patients with WBC >100,000 may have falsely elevated Potassium levels. ??For accurate Potassium quantification in these patients send serum separator tube (gold top) for subsequent determinations. ??Contact the Clinical Chemistry Laboratory if there are any questions. Chloride 104 98 - 107 mmol/L [facility] Carbon Dioxide 26 22 - 31 mmol/L [facility] Anion Gap 10 5 - 15 mmol/L [facility] Calcium 9.2 8.5 - 10.5 mg/dL [facility] Est Glomerular Filtration Rate 47(L) >=60 mL/min/1. 73 m?? [facility] Comment: The eGFR was calculated using the CKD-EPI equation. As with all creatinine based estimates of kidney function, eGFR values calculated with the CKD-EPI equation are not accurate in patients with acute kidney failure, extremes of body mass or the acutely ill. [email or web address] eGFR 54(L) >=60 mL/min/1. 73 m?? [facility] Comment: The eGFR was calculated using the CKD-EPI equation. As with all creatinine based estimates of kidney function, eGFR values calculated with the CKD-EPI equation are not accurate in patients with acute kidney failure, extremes of body mass or the acutely ill. [email or web address] Blood specimen (specimen) 06/29/2018 11:44 AM EDT 06/29/2018 11:55 AM EDT Narrative Resulting Agency Comment Spec In Lab Toni Akbar MD CHEMISTRY ORDERABL ES [facility] [place] [address] documented in this encounter Visit Diagnoses Diagnosis Renal cell carcinoma, unspecified laterality documented in this encounter Care Teams Denial Management Representative Relationship Specialty Start Date End Date Amelia Goodwin APRN [address] [place] [address] PCP - General Family Medicine 06/29/18 05/21/20 documented as of this encounter
--- OUTSIDE RECORDS SUMMARY | 2024-07-23 01:22 | XMS_ITS | Encounter Summary ---
Author Organization [facility] [place] [address] Care Team Providers Care Review Nurse Name Role Phone Harjit Mcneil Primary Care Provider [phone] Reason for Referral * Consultation (Routine) - Closed Specialty Diagnoses / Procedures Referred By Contac t Referred To Contact [facility] and Spine Center Diagnoses Spinal stenosis, lumbar region with neurogenic claudication Nina Redmond APRN [facility] [place] [address] [facility] [place] [address] Referral ID Status Reason Start Date Expiration Date Visits Requested Visits Authorized [id number] Closed Pain Interventional Procedure 3 09/17/2024 1 1 Reason for Visit * Reason Comments Back Pain Lower back pain * Consultation (Routine) - Closed Specialty Diagnoses / Procedures Referred By Contac t Referred To Contact [facility] Diagnoses Chronic back pain, unspecified back location, unspecified back pain laterality chronic low back pain/ imaging Harjit Mcneil PA [address] [place] [address] [facility] [place] [address] Referral ID Status Reason Start Date Expiration Date V isits Requested Visits Authorized [id number] Closed Consult, Test & Treat PCP Updated and/or Approved 07/07/2023 07/07/2024 12 12 Encounter Details Date Type Department Care Team (Late st Contact Info) Description 09/18/2023 1:00 PM EST Office Visit [place] [address] Nina Redmond APRN [facility] [place] [address] Spinal stenosis, lumbar region with neurogenic claudication [...] that interventional injection treatment be performed at [facility]. I think this is quite reasonable and will make a referral to Dr. Navarro. I am available to see the patient after his work with Dr. Navarro is completed. Diagnosis: ICD-10-CM 1. Spinal stenosis, lumbar region with neurogenic claudication M48.062 Referral to Pain Management Plan Referral to [facility] pain clinic for consideration of [...] Villa Referring Provider: Harjit Redmond APRN 09/19/2023 [facility] documented in [...] claudication documented in this encounter Care Teams Review Nurse Relationship Specialty Start Date End Date Harjit Mcneil PA [address] [place] [address] PCP - General Internal Medicine 07/11/23 documented as of this encounter
--- OUTSIDE RECORDS SUMMARY | 2024-07-23 01:22 | XMS_ITS | Encounter Summary ---
Author Organization [facility] Address [facility] [place] [address] Care Team Providers Care Willower Name Role Phone Norma Murdock APRN Primary Care Provider [phone] Reason for Visit * Reason Comments Follow-up L JOHN ANT 01/15/17 Encounter Details Date Type Department Care Team (Late st Contact Info) Description 01/18/2021 1:00 PM EDT Office [place] [address] Pineda Montague MD Status post [...] Dr. Montague 2. Left reverse TSA in [facility] 2020 HPI: Shree Ortez Jr. is [...] subsidence, loosening, or periprosthetic complication. Questionnaire Responses: [facility] Surgical Postop Visit 01/01/2018 PROMIS-10 General [...] Choose Same Treatment Again Probably yes Orthopeadics [facility] Response 01/01/2018 HOOS JR Scores 64.66 [...] hip documented in this encounter Care Teams Willower Relationship Specialty Start Date End Date Norma Murdock APRN [address] [place] [address] PCP - General Family Medicine 05/22/20 07/10/23 documented as of this encounter
--- OUTSIDE RECORDS SUMMARY | 2024-07-23 01:22 | XMS_ITS | Encounter Summary ---
[place] [address] Care Team Providers Care Professor Of Communication And Writing Name Role Phone Harjit Mcneil Primary Care Provider [phone] Encounter Details Date Type Department Care Team [...] on filedocumented in this encounter Care Teams Professor Of Communication And Writing Relationship Specialty Start Date End Date Harjit Mcneil PA [address] [place] [address] PCP - General Internal Medicine 07/11/23 documented as of this encounter
--- OUTSIDE RECORDS SUMMARY | 2024-07-23 01:22 | XMS_ITS | Encounter Summary ---
Author Organization [facility] [place] [address] Care Team Providers Care Web Site Manager Name Role Phone Norma Murdock VERONICA Primary Care Provider [phone] Encounter Details Date Type Department Care Team (Late st Contact Info) Description 07/03/2023 Ancillary Procedure Radiology Library at [facility] [place] [address] Nina Redmond APRN [facility] [place] [address] Social History Tobacco Use Types Packs/Day Years [...] MR Spine (07/03/2023 12:00 AM EDT) Narrative [facility] - 08/20/2023 12:10 AM EST This exam is auto-finalizing. It's purpose is for storage only. Nina Aparicio Redmond COPRA SAMPLER IMG FILM LIBRARY OR DERABLES [place], [place] documented in this encounter Visit Diagnoses Not on filedocumented in this encounter Care Teams Web Site Manager Relationship Specialty Start Date End Date Norma Murdock APRN [address] [place] [address] PCP - General Family Medicine 05/22/20 07/10/23 documented as of this encounter
--- OUTSIDE RECORDS SUMMARY | 2024-07-23 01:22 | XMS_ITS | Encounter Summary ---
[place] [address] Care Team Providers Care Support Clerk Name Role Phone Harjit Mcneil Primary Care Provider [phone] Reason for Referral * Consultation (Routine) - Closed Specialty Diagnoses / Procedures Referred By Ugo t Referred To Contact Pain and Spine Center Diagnoses Chronic back pain, unspecified back location, unspecified back pain laterality chronic low back pain/ imaging Harjit Mcneil PA [address] [place] [address] [facility] [place] [address] Referral ID Status Reason Start Date Expiration Date V isits Requested Visits Authorized [id number] Closed Consult, Test & Treat PCP Updated and/or Approved 07/07/2023 07/07/2024 12 12 Encounter Details Date Type Department Care Team (Latest Contact Info) Description 07/11/2023 Transcribe Orders eDH Incoming Referrals [phone] Harjit Mcneil PA [address] [place] [address] Chronic back pain, unspecified back [...] laterality documented in this encounter Care Teams Support Clerk Relationship Specialty Start Date End Date Harjit Mcneil PA [address] [place] [address] PCP - General Internal Medicine 07/11/23 documented as of this encounter
--- OUTSIDE RECORDS SUMMARY | 2024-07-23 01:22 | XMS_ITS | Encounter Summary ---
Author Organization [facility] [place] [address] Care Team Providers Care Process Machine Operator Name Role Phone Amelia Goodwin APRN Primary Care Provider + Reason for Visit * Diagnostic Test (Routine) - Closed Specialty Diagnoses / Procedures Referred By Ugo maynard Referred To Contact Radiology Diagnoses History of renal cell cancer Procedures CT Abdomen & Pelvis w Contrast CT Abdomen & Pelvis wo Contrast Toni Akbar MD [facility] [place] [address] [facility] [place] [address] Referral ID Status Reason Start Date Expiration Date V isits Requested Visits Authorized [id number] Closed Specialty Service Requested 02/26/2018 02/26/2019 1 1 Encounter Details Date Type Department Care Team (Latest Contact Info) Description 06/29/2018 10:08 AM EDT - 06/29/2018 11:18 AM EDT Hospital [place] [address] Toni Akbar MD [facility] [place] [address] History of renal cell cancer [...] mLs documented in this encounter Care Teams Process Machine Operator Relationship Specialty Start Date End Date Amelia Goodwin APRN [address] [place] [address] PCP - General Family Medicine 06/29/18 05/21/20 documented as of this encounter
--- OUTSIDE RECORDS SUMMARY | 2024-07-23 01:22 | XMS_ITS | Encounter Summary ---
Author Organization [facility] Address [facility] [place] [address] Care Team Providers Care Transport Tech Name Role Phone Norma Murdock APRN Primary Care Provider [phone] Encounter Details Date Type Department Care Team (Latest Contact Info) Description 01/18/2021 11:39 AM EDT - 01/18/2021 11:59 PM EDT Hospital Encounter XRay at [address] [place] [address] Pineda Montague MD Left hip pain Discharge [...] who have questions please contact the health healthcare associate that requested your imaging first. ? Narrative 01/18/2021 1:55 PM EDT EXAMINATION: XR [...] patients who have questions please contactthe health healthcare associate that requested your imaging first. Pineda Montague MD IMG DX ORDERABLES documented in this encounter Visit Diagnoses Diagnosis Left hip pain Pain in joint, pelvic region and thigh documented in this encounter Care Teams Transport Tech Relationship Specialty Start Date End Date Norma Murdock APRN [address] [place] [address] PCP - General Family Medicine 05/22/20 07/10/23 documented as of this encounter
--- OUTSIDE RECORDS SUMMARY | 2024-07-23 01:22 | XMS_ITS | Encounter Summary ---
Author Organization [facility] [place] [address] Care Team Providers Care Audit Control Clerk Name Role Phone Harjit Mcneil Primary Care Provider [phone] Encounter Details Date Type Department Care Team (Late st Contact Info) Description 10/07/2023 Telephone [facility] and Sp[facility] Center at [facility] [place] [address] Rashmi Paz, RN Social History Tobacco Use [...] reports Nina was to refer him to [facility] for pain mgmt; pt has yet to receive a call re the appt. Informed pt that I could see that Nina placed the referral n the day he was seen. Offered to connect her w Иван at the scheduling desk to confirm that her external referral for pain and Nina's clinic note was sent to [facility]. I explained once they had the info- [...] on filedocumented in this encounter Care Teams Audit Control Clerk Relationship Specialty Start Date End Date Harjit Mcneil PA [address] [place] [address] PCP - General Internal Medicine 07/11/23 documented as of this encounter
--- OUTSIDE RECORDS SUMMARY | 2024-07-23 01:22 | XMS_ITS | Encounter Summary ---
Author Organization [facility] [place] [address] Care Team Providers Care Car Inspection And Repair Manager Name Role Phone Norma Murdock APRN Primary Care Provider [phone] Encounter Details Date Type Department Care Team (Late st Contact Info) Description 03/06/2021 Ancillary Procedure Radiology Library at [facility] [place] [address] Norma Murdock APRN [address] [place] [address] Social History Tobacco Use Types [...] & Pelvis (03/06/2021 12:00 AM EDT) Narrative [facility] - 08/21/2021 12:05 PM EST This exam is auto-finalizing. It's purpose is for storage only. Norma Young JOB TRACER [place] FILM LIBRARY ORD ERABLES [facility] [place], [place] documented in this encounter Visit Diagnoses Not on filedocumented in this encounter Care Teams Car Inspection And Repair Manager Relationship Specialty Start Date End Date Norma Murdock APRN [address] [place] [address] PCP - General Family Medicine 05/22/20 07/10/23 documented as of this encounter
--- OUTSIDE RECORDS SUMMARY | 2024-07-23 01:22 | XMS_ITS | Encounter Summary ---
Author Organization [facility] [place] [address] Care Team Providers Care Information Assurance Name Role Phone Amelia Goodwin APRN Primary Care Provider + Encounter Details Date Type Department Care Team (Late st Contact Info) Description 06/29/2018 Orders Only Urology at [facility] [place] [phone] Toni Akbar MD [facility] [place] [address] Renal cell carcinoma, unspecified laterality Social History [...] Scheduled Procedures Name Priority Associated Diagnoses Date/Ti il EGD, UPPER GI ENDOSCOPY (WRV U 2.09) Esophageal dysphagia Encounter for colorectal cancer screening COLONOSCOPY, DIAGNOSTIC (WRV U 3.26) Esophageal dysphagia Encounter for colorectal cancer screening documented as of this encounter Results * (ABNORMAL) Basic Metabolic Panel (non-fasting) (06/29/2018 11:44 AM EDT) Glucose 92 65 - 199 mg/dL [facility] Comment:Diabetes: >=200 mg/d L plus symptoms Blood Urea Nitrogen 19 10 - 20 mg/dL [facility] Creatinine 1.51(H) 0.80 - 1.50 mg/dL [facility] Sodium 140 135 - 145 mmol/L [facility] Potassium 4.8 3.5 - 5.0 mmol/L [facility] Comment: Please note: ??Patients with WBC >100,000 may have falsely elevated Potassium levels. ??For accurate Potassium quantification in these patients send serum separator tube (gold top) for subsequent determinations. ??Contact the Clinical Chemistry Laboratory if there are any questions. Chloride 104 98 - 107 mmol/L [facility] Carbon Dioxide 26 22 - 31 mmol/L [facility] Anion Gap 10 5 - 15 mmol/L [facility] Calcium 9.2 8.5 - 10.5 mg/dL [facility] Est Glomerular Filtration Rate 47(L) >=60 mL/min/1. 73 m?? [facility] Comment: The eGFR was calculated using the CKD-EPI equation. As with all creatinine based estimates of kidney function, eGFR values calculated with the CKD-EPI equation are not accurate in patients with acute kidney failure, extremes of body mass or the acutely ill. [email or web address] eGFR 54(L) >=60 mL/min/1. 73 m?? [facility] Comment: The eGFR was calculated using the CKD-EPI equation. As with all creatinine based estimates of kidney function, eGFR values calculated with the CKD-EPI equation are not accurate in patients with acute kidney failure, extremes of body mass or the acutely ill. [email or web address] Blood specimen (specimen) 06/29/2018 11:44 AM EDT 06/29/2018 11:55 AM EDT Narrative Resulting Agency Comment Spec In Lab Toni Akbar MD CHEMISTRY ORDERABL ES [facility] [place] [address] documented in this encounter Visit Diagnoses Diagnosis Renal cell carcinoma, unspecified laterality documented in this encounter Care Teams Information Assurance Relationship Specialty Start Date End Date Amelia Goodwin APRN [address] [place] [address] PCP - General Family Medicine 06/29/18 05/21/20 documented as of this encounter
--- OUTSIDE RECORDS SUMMARY | 2024-07-23 01:22 | XMS_ITS | Encounter Summary ---
Author Organization [facility] [place] [address] Care Team Providers Care Metal Weigher Name Role Phone Norma Murdock APRN Primary Care Provider [phone] Encounter Details Date Type Department Care Team (Latest Contact Info) Description 08/09/2020 12:45 PM EST Laboratory Appointment Lab 3L [facility] [place] [phone] Renal cell carcinoma, unspecified laterality Social History [...] EST) Glucose 103 65 - 199 mg/dL [facility] Comment:Diabetes: >=200 mg/d L plus symptoms Blood Urea Nitrogen 20 10 - 20 mg/dL [facility] Creatinine 1.20 0.80 - 1.50 mg/dL [facility] Sodium 140 135 - 145 mmol/L [facility] Potassium 4.3 3.5 - 5.0 mmol/L [facility] Comment: Please note: ??Patients with WBC >100,000 may have falsely elevated Potassium levels. ??For accurate Potassium quantification in these patients send serum separator tube (gold top) for subsequent determinations. ??Contact the Clinical Chemistry Laboratory if there are any questions. Chloride 108(H) 98 - 107 mmol/L [facility] Carbon Dioxide 25 22 - 31 mmol/L [facility] Anion Gap 7 5 - 15 mmol/L [facility] Calcium 9.1 8.5 - 10.5 mg/dL [facility] Est Glomerular Filtration Rate 61 >=60 mL/min/1. 73 m?? [facility] Comment: The eGFR was calculated using the CKD-EPI equation. As with all creatinine based estimates of kidney function, eGFR values calculated with the CKD-EPI equation are not accurate in patients with acute kidney failure, extremes of body mass or the acutely ill. [email or web address]/[facility] CITYnk[facility] eGFR 71 >=60 mL/min/1. 73 m?? [facility] Comment: The eGFR was calculated using the CKD-EPI equation. As with all creatinine based estimates of kidney function, eGFR values calculated with the CKD-EPI equation are not accurate in patients with acute kidney failure, extremes of body mass or the acutely ill. [email or web address]-Intelligence/[facility] CITY[facility] Blood specimen (specimen) 08/09/2020 1:03 PM EST 08/09/2020 1:11 PM EST Narrative Resulting Agency Comment Spec In Lab Toni Akbar MD CHEMISTRY ORDERABL ES [facility] [place] [address] documented in this encounter Visit Diagnoses Diagnosis Renal cell carcinoma, unspecified laterality documented in this encounter Care Teams Metal Weigher Relationship Specialty Start Date End Date Norma Murdock APRN [address] [place] [address] PCP - General Family Medicine 05/22/20 07/10/23 documented as of this encounter
--- OUTSIDE RECORDS SUMMARY | 2024-07-23 01:22 | XMS_ITS | Encounter Summary ---
Author Organization Formerly [facility] [place] [address] Care Team Providers Care Institutional Commodity Analyst Name Role Phone Norma Murdock VERONICA Primary Care Provider [phone] Reason for Referral * Diagnostic Test (Routine) - Closed Specialty Diagnoses / Procedures Referred By Contlesli t Referred To Contact Radiology Diagnoses Renal cell carcinoma, unspecified laterality Procedures CT Abdomen w Contrast CT Abdomen wwo Contrast Toni Akbar MD [facility] [place] [place] [address] [facility] [place] [address] Referral ID Status Reason Start Date Expiration Date V isits Requested Visits Authorized [id number] Closed Specialty Service Requested 06/21/2020 12/19/2021 1 1 Encounter Details Date Type Department Care Team (Late st Contact Info) Description 06/21/2020 Orders [place] [address] Toni Akbar MD [facility] [place] [place] [address] Renal cell carcinoma, unspecified laterality [...] contact the number below. ? Narrative 08/09/2020 4:15 PM EST EXAMINATION: CT [...] this report, please contact the number below. Toni Akbar MD IMG CT ORDERABLES * (ABNORMAL) Basic Metabolic Panel (non-fasting) (08/09/2020 1:03 PM EST) Glucose 103 65 - 199 mg/dL [facility] Comment:Diabetes: >=200 mg/d L plus symptoms Blood Urea Nitrogen 20 10 - 20 mg/dL [facility] Creatinine 1.20 0.80 - 1.50 mg/dL [facility] Sodium 140 135 - 145 mmol/L [facility] Potassium 4.3 3.5 - 5.0 mmol/L [facility] Comment: Please note: ??Patients with WBC >100,000 may have falsely elevated Potassium levels. ??For accurate Potassium quantification in these patients send serum separator tube (gold top) for subsequent determinations. ??Contact the Clinical Chemistry Laboratory if there are any questions. Chloride 108(H) 98 - 107 mmol/L [facility] Carbon Dioxide 25 22 - 31 mmol/L [facility] Anion Gap 7 5 - 15 mmol/L [facility] Calcium 9.1 8.5 - 10.5 mg/dL [facility] Est Glomerular Filtration Rate 61 >=60 mL/min/1. 73 m?? [facility] Comment: The eGFR was calculated using the CKD-EPI equation. As with all creatinine based estimates of kidney function, eGFR values calculated with the CKD-EPI equation are not accurate in patients with acute kidney failure, extremes of body mass or the acutely ill. http://[employer]/[facility] eGFR 71 >=60 mL/min/1. 73 m?? [facility] Comment: The eGFR was calculated using the CKD-EPI equation. As with all creatinine based estimates of kidney function, eGFR values calculated with the CKD-EPI equation are not accurate in patients with acute kidney failure, extremes of body mass or the acutely ill. http://[employer]/[facility] [place] Blood specimen (specimen) 08/09/2020 1:03 PM EST 08/09/2020 1:11 PM EST Narrative Resulting Agency Comment Spec In Lab Toni Akbar MD CHEMISTRY ORDERABL ES [facility] [place] [address] * XR Chest PA & Lateral (Generic) [...] this report, please contact the number below. Toni Akbar MD IMG DX ORDERABLES documented in this encounter Visit Diagnoses Diagnosis Renal cell carcinoma, unspecified laterality Renal cell carcinoma, unspecified laterality Renal cell carcinoma, unspecified laterality documented in this encounter Care Teams Institutional Commodity Analyst Relationship Specialty Start Date End Date Norma Murdock APRN [address] [place] [address] PCP - General Family Medicine 05/22/20 07/10/23 documented as of this encounter
--- OUTSIDE RECORDS SUMMARY | 2024-07-23 01:22 | XMS_ITS | Encounter Summary ---
[place] [address] Care Team Providers Care Billiard Table Repairer Name Role Phone Amelia Goodwin APRN Primary Care Provider + Reason for Referral * Diagnostic Test (Routine) - Closed Specialty Diagnoses / Procedures Referred By Ugo maynard Referred To Contact Cardiology Diagnoses Heart murmur GARDNER (dyspnea on exertion) Procedures Echocardiogram Transthoracic(Leb) Amelia Goodwin APRN [address] [place] [address] [facility] [place] [address] Referral ID Status Reason Start Date Expiration Date V isits Requested Visits Authorized [id number] Closed Specialty Service Requested 06/18/2018 06/18/2019 1 1 Reason for Visit * Diagnostic Test (Routine) - Closed Specialty Diagnoses / Procedures Referred By Contlesli maynard Referred To Contact Cardiology Diagnoses Heart murmur GARDNER (dyspnea on exertion) Procedures Echocardiogram Transthoracic(Leb) Amelia Goodwin APRN [address] [place] [address] [facility] [place] [address] Referral ID Status Reason Start Date Expiration Date V isits Requested Visits Authorized [id number] Closed Specialty Service Requested 06/18/2018 06/18/2019 1 1 Encounter Details Date Type Department Care Team (Latest Contact Info) Description 06/29/2018 8:30 AM EDT - 06/29/2018 10:07 AM EDT Hospital Encounter Non-[place] [address] EricaAmelia connellyVERONICA [address] [place] [address] Heart murmur; GARDNER (dyspnea on exertion) Discharge [...] ?BALJINDER Aparicio ?(Age): 1950(68y) Med Rec#: ? [id number] ?Sex: ?M ? Site Loc: ? DH ?Ht / Wt: ??177.8(cm)/95.3( Pt. Loc: ?Echo Lab ?BSA: ?2.13 Study Date: ?? 06/29/2018 ?Pt. Type: Outpatient Tape: ? Referring: [facility] Reading: Rory Conway ([id number]) Television Installer Helper: Dakotah Pedroza RDCS Diagnosis: *Cardiac murmur, unspecified [...] E-wave Vmax ?0.9 ?m/sec ? MV deceleration jevk077.3 ?msec ? MV A-wave Vmax ?1 ?m/sec [...] ? Mid-Inferior ?Normal ? Mid-Inferoseptal ?Normal ? [place]-Septal ? Normal ? [place]-Anterior ? Normal ? [place]-Lateral ?Normal ? [place]-Inferior ? Normal ? [place]-Tip ?Normal ? This report has been electronically signed by: Rory Conway MD ? 06/29/2018 09:24:54 Images reviewed and interpretation verified [facility] Cardiac Ultrasound Laboratory Procedure Note Rory Conway MD - 06/29/2018 Procedure: Transthoracic Echocardiogram Patient: BALJINDER Aparicio (Age): 1950(68y) Med Rec#: [id number] Sex: M Site Loc: [facility] Ht / Wt: 177.8(cm)/95.3( Pt. Loc: Echo Lab BSA: 2.13 Study Date: 06/29/2018 Pt. Type: Outpatient Tape: Referring: [facility] Reading: Rory Conway ([id number]) Television Installer Helper: Dakotah Pedroza [facility] Diagnosis: *Cardiac murmur, unspecified (R01.1) *Other forms [...] MV E-wave Vmax 0.9 m/sec MV deceleration votr636.3 msec MV A-wave Vmax 1 m/sec MV [...] Normal Mid-Posterolateral Normal Mid-Inferior Normal Mid-Inferoseptal Normal [place]-Septal Normal [place]-Anterior Normal [place]-Lateral Normal [place]-Inferior Normal [place]-Tip Normal This report has been electronically signed by: Rory Conway MD 06/29/2018 09:24:54 Images reviewed and interpretation verified [facility] Cardiac Ultrasound Laboratory Amelia Goodwin APRN ECHO ORDERABLES documented in this encounter Visit Diagnoses Diagnosis Heart murmur Undiagnosed cardiac murmurs GARDNER (dyspnea on exertion) Other dyspnea and respiratory abnormality documented in this encounter Care Teams Billiard Table Repairer Relationship Specialty Start Date End Date Amelia Goodwin APRN [address] [place] [address] PCP - General Family Medicine 06/29/18 05/21/20 documented as of this encounter
--- OUTSIDE RECORDS SUMMARY | 2024-07-23 01:22 | XMS_ITS | Encounter Summary ---
Author Organization [facility] Address [facility] [address] [place] [place] [address] Care Team Providers Care Cash Application Clerk Name Role Phone Duke Ramos MD Primary Care Provider [phone] Encounter Details Date Type Department Care Team (Late st Contact Info) Description 02/26/2018 Orders Only Urology at [facility] [place] [phone] Toni Akbar MD [facility] [address] History of renal cell cancer Social History [...] cancer documented in this encounter Care Teams Cash Application Clerk Relationship Specialty Start Date End Date Duke Ramos MD [address] [place] [address] PCP - General Family Medicine 08/23/16 06/28/18 documented as of this encounter
--- OUTSIDE RECORDS SUMMARY | 2024-07-23 01:22 | XMS_ITS | Encounter Summary ---
Author Organization [place] [address] Care Team Providers Care Seismic Engineer Name Role Phone Duke Ramos MD Primary Care Provider [phone] Encounter Details Date Type Department Care Team (Latest Contact Info) Description 06/19/2017 11:45 AM EDT Laboratory Appointment Lab [address] [place] [id number] History of kidney cancer Social History Tobacco [...] EDT) Glucose 96 65 - 199 mg/dL [facility] Comment:Diabetes: >=200 mg/d L plus symptoms Blood Urea Nitrogen 24(H) 10 - 20 mg/dL [facility] Creatinine 1.49 0.80 - 1.50 mg/dL [facility] Comment: Please note that the pediatric reference intervals supplied above were not validated at [facility]. Results from pediatric patients should be interpreted in conjunction to the patient's age, height and muscle mass. Sodium 143 135 - 145 mmol/L [facility] Potassium 4.7 3.5 - 5.0 mmol/L [facility] Comment: Please note: ??Patients with WBC >100,000 may have falsely elevated Potassium levels. ??For accurate Potassium quantification in these patients send serum separator tube (gold top) for subsequent determinations. ??Contact the Clinical Chemistry Laboratory if there are any questions. Chloride 105 98 - 107 mmol/L [facility] Carbon Dioxide 26 22 - 31 mmol/L [facility] Anion Gap 12 5 - 15 mmol/L [facility] Calcium 9.3 8.5 - 10.5 mg/dL [facility] Protein, Total 7.4 6.1 - 8.0 gm/dL [facility] Albumin 4.1 3.2 - 5.2 gm/dL [facility] Aspartate Aminotransferase 23 0 - 39 unit/L [facility] Alanine Aminotransferase 30 0 - 55 unit/L [facility] Alkaline Phosphatase 130(H) 40 - 120 unit/L [facility] Bilirubin, Total 0.4 0.2 - 1.3 mg/dL [facility] Est Glomerular Filtration Rate 47(L) >=60 [facility] Comment: This estimated GFR (eGFR) [...] the following links into your internet browser. [email or web address] Blood specimen (specimen) 06/19/2017 11:21 AM EDT 06/19/2017 11:26 AM EDT Narrative Resulting Agency Comment Spec In Lab Jarocho Jenkins MD CHEMISTRY ORDERABLES [facility] [place] [address] documented in this encounter Visit Diagnoses Diagnosis History of kidney cancer Personal history of malignant neoplasm of kidney documented in this encounter Care Teams Seismic Engineer Relationship Specialty Start Date End Date Duke Ramos MD [address] [place] [address] PCP - General Family Medicine 08/23/16 06/28/18 documented as of this encounter
--- OUTSIDE RECORDS SUMMARY | 2024-07-23 01:22 | XMS_ITS | Encounter Summary ---
Author Organization [facility] [place] [place] [place] [address] Care Team Providers Care Crop Research Scientist Name Role Phone Norma Murdock APRN Primary Care Provider [phone] Encounter Details Date Type Department Care Team (Late st Contact Info) Description 08/21/2020 Telephone Urology at [facility] [place] [phone] Toni Akbar MD [facility] [place] [address] Social History Tobacco Use Types Packs/Day Years [...] on filedocumented in this encounter Care Teams Crop Research Scientist Relationship Specialty Start Date End Date Norma Murdock APRN [address] [place] [address] PCP - General Family Medicine 05/22/20 07/10/23 documented as of this encounter
--- OUTSIDE RECORDS SUMMARY | 2024-07-23 01:22 | XMS_ITS | Encounter Summary ---
Author Organization [facility] [place] [address] Care Team Providers Care Prep Manager Name Role Phone Duke Ramos MD Primary Care Provider [phone] Reason for Visit * Reason Comments Follow Up Surgery Left anterior JOHN Encounter Details Date Type Department Care Team (Late st Contact Info) Description 01/01/2018 11:10 AM EDT [place] [phone] Pineda Montague MD Status post total replacement [...] subsidence, loosening, or periprosthetic complication. Questionnaire Responses: [facility] Surgical Postop Visit 01/01/2018 PROMIS-10 General [...] hip documented in this encounter Care Teams Prep Manager Relationship Specialty Start Date End Date Duke Ramos MD [address] [address] PCP - General Family Medicine 08/23/16 06/28/18 documented as of this encounter
--- OUTSIDE RECORDS SUMMARY | 2024-07-23 01:22 | XMS_ITS | Encounter Summary ---
Author Organization [facility]ly [facility] [place] [address] Care Team Providers Care Luggage Repairer Name Role Phone Norma Murdock APRN Primary Care Provider [phone] Encounter Details Date Type Department Care Team (Late st Contact Info) Description 06/20/2020 Telephone [place] [phone] Toni Akbar MD [facility] [place] [address] Social History Tobacco Use Types Packs/Day Years [...] on filedocumented in this encounter Care Teams Luggage Repairer Relationship Specialty Start Date End Date Norma Murdock APRN [address] [place] [address] PCP - General Family Medicine 05/22/20 07/10/23 documented as of this encounter
--- OUTSIDE RECORDS SUMMARY | 2024-07-23 01:22 | XMS_ITS | Encounter Summary ---
Author Organization [facility] [place] [address] Care Team Providers Care Collision Center Manager Name Role Phone Norma Murdock VERONICA Primary Care Provider [phone] Encounter Details Date Type Department Care Team (Late st Contact Info) Description 05/21/2023 Ancillary Procedure Radiology Library at [facility] [place] [address] Nina Redmond APRN [facility] [place] [address] Social History Tobacco Use Types Packs/Day Years [...] DX Spine (05/21/2023 12:00 AM EDT) Narrative [facility] - 08/20/2023 12:12 AM EST This exam is auto-finalizing. It's purpose is for storage only. Nina Aparicio Redmond P[employer] CONTRACTOR IMG FILM LIBRARY OR DERABLES [place], [place] documented in this encounter Visit Diagnoses Not on filedocumented in this encounter Care Teams Collision Center Manager Relationship Specialty Start Date End Date Norma Murdock APRN [address] [place] [address] PCP - General Family Medicine 05/22/20 07/10/23 documented as of this encounter
--- OUTSIDE RECORDS SUMMARY | 2024-07-23 01:22 | XMS_ITS | Encounter Summary ---
Author Organization [facility] Address [facility] [place] [place] [place] [address] Care Team Providers Care Nonprofit Financial Controller Name Role Phone Amelia Goodwin APRN Primary Care Provider + Reason for Referral * Physical Therapy (Routine) - Specialty Diagnoses / Procedures Referred By Ugo t Referred To Contact Diagnoses Status post total replacement of left hip Luciana Thompson [place] [facility] [place] [address] Referral ID Status Reason Start Date Expiration Date V isits Requested Visits Authorized [id number] Evaluate and Treat Non PCP 01/14/2019 07/13/2019 12 12 Reason for Visit * Reason Comments Follow Up Surgery left ant JOHN DOS 12/22 03/08 Encounter Details Date Type Department Care Team (Late st Contact Info) Description 01/14/2019 1:00 PM EDT Office Visit Orthopaedics at [facility] [place] [address] Pineda Montague MD Status post total replacement [...] Response 01/01/2018 HOOS JR Scores 64.66 Spine [facility] Response 01/01/2018 HOOS JR Scores 64.66 ASSESSMENT/PLAN: [...] hip documented in this encounter Care Teams Nonprofit Financial Controller Relationship Specialty Start Date End Date Amelia Goodwin APRN [address] [place] [address] PCP - General Family Medicine 06/29/18 05/21/20 documented as of this encounter
--- OUTSIDE RECORDS SUMMARY | 2024-07-23 01:22 | XMS_ITS | Encounter Summary ---
Author Organization [facility] [place] [address] Care Team Providers Care Health Inspector Name Role Phone Duke Ramos MD Primary Care Provider [phone] Reason for Visit * Reason Onset Date Comments Appointment 10/29/2017 Encounter Details Date Type Department Care Team (Late st Contact Info) Description 10/29/2017 Telephone Orthopaedics at [facility] [place] [address] Cierra Laureano RMA Appointment Social History Tobacco [...] say he just missed a call from [facility]. He was not sure who called but is thinking that it must be getting close to his one year anniversary. SP L JOHN Dos 01/15/17 Dr Montague I let him know that I would get a message to our collections rep's to see if they can give him a call to [facility] that appt. documented in this encounter Plan of Treatment Scheduled Procedures Name Priority Associated Diagnoses Date/Ti me EGD, UPPER GI ENDOSCOPY (WRV U 2.09) Esophageal dysphagia Encounter for colorectal cancer screening COLONOSCOPY, DIAGNOSTIC (WRV U 3.26) Esophageal dysphagia Encounter for colorectal cancer screening documented as of this encounter Visit Diagnoses Not on filedocumented in this encounter Care Teams Health Inspector Relationship Specialty Start Date End Date Duke Ramos MD [address] [place] [address] PCP - General Family Medicine 08/23/16 06/28/18 documented as of this encounter
--- OUTSIDE RECORDS SUMMARY | 2024-07-23 01:22 | XMS_ITS | Encounter Summary ---
Author Organization Formerly [facility] Address [facility] [place] [address] Care Team Providers Care Business Case Analyst Name Role Phone Duke Ramos MD Primary Care Provider [phone] Encounter Details Date Type Department Care Team (Latest Contact Info) Description 06/19/2017 11:24 AM EDT Hospital Encounter XRay at [address] [place] [address] History of kidney cancer Discharge Disposition: Home [...] kidney documented in this encounter Care Teams Business Case Analyst Relationship Specialty Start Date End Date Duke Ramos MD [address] [place] [address] PCP - General Family Medicine 08/23/16 06/28/18 documented as of this encounter
--- OUTSIDE RECORDS SUMMARY | 2024-07-23 01:22 | XMS_ITS | Encounter Summary ---
Author Organization [facility] Address [facility] [place] [address] Care Team Providers Care Black Top Roller Name Role Phone Amelia Goodwin APRN Primary Care Provider + Encounter Details Date Type Department Care Team (Latest Contact Info) Description 01/14/2019 11:26 AM EDT - 01/14/2019 11:59 PM EDT Hospital Encounter XRay at [address] [place] [address] Pineda Montague MD History of total left [...] below. ? Electronically signed by: Chaparro Mcnally [facility] ([phone]), at 01/14/2019 3:12 PM Narrative 01/14/2019 3:12 [...] replacement documented in this encounter Care Teams Black Top Roller Relationship Specialty Start Date End Date Amelia Goodwin APRN [address] [place] [address] PCP - General Family Medicine 06/29/18 05/21/20 documented as of this encounter
--- OUTSIDE RECORDS SUMMARY | 2024-07-23 01:22 | XMS_ITS | Encounter Summary ---
Author Organization [place] [address] Care Team Providers Care Water Gas Operator Name Role Phone Duke Ramos MD Primary Care Provider [phone] Reason for Referral * Diagnostic Test (Routine) - Closed Specialty Diagnoses / Procedures Referred By Contac t Referred To Contact Radiology Diagnoses Renal cancer, unspecified laterality Procedures CT Abdomen & Pelvis w Contrast Toni Akbar MD [facility] [place] [address] [facility] [place] [address] Referral ID Status Reason Start Date Expiration Date V isits Requested Visits Authorized Closed Specialty Service Requested 06/18/2017 06/18/2018 1 1 Reason for Visit * Diagnostic Test (Routine) - Closed Specialty Diagnoses / Procedures Referred By Contac t Referred To Contact Radiology Diagnoses Renal cancer, unspecified laterality Procedures CT Abdomen & Pelvis w Contrast Toni Akbar MD [facility] [place] [address] [facility] [place] [address] Referral ID Status Reason Start Date Expiration Date V isits Requested Visits Authorized [id number] Closed Specialty Service Requested 06/18/2017 06/18/2018 1 1 Encounter Details Date Type Department Care Team (Latest Contact Info) Description 06/19/2017 12:34 PM EDT - 06/19/2017 11:59 PM EDT Hospital [place] [address] Jarocho Jenkins MD [address] [place] [address] Renal cancer, unspecified laterality Discharge Disposition: Home [...] within the abdomen andpelvis. Toni Akbar MD [facility] [place] ORDERABLES documented in this encounter Visit [...] mLs documented in this encounter Care Teams Water Gas Operator Relationship Specialty Start Date End Date Duke Ramos MD [address] [place] [address] PCP - General Family Medicine 08/23/16 06/28/18 documented as of this encounter
--- OUTSIDE RECORDS SUMMARY | 2024-07-23 01:22 | XMS_ITS | Encounter Summary ---
Author Organization [facility] Address [facility] [address] [place] [address] Care Team Providers Care Computing Architect Name Role Phone Norma Murdock APRN Primary Care Provider [phone] Encounter Details Date Type Department Care Team (Latest Contact Info) Description 11/05/2021 12:33 PM EST - 11/05/2021 11:59 PM EST Hospital Encounter Ultrasound at [facility] [place] [address] Flash Livingston MD [facility] [place] [address] Discomfort of left groin Discharge Disposition: Home [...] seen with no evidence of hernia recurrence Electronically signed by: Clari Smith MD, [facility] ([phone]), at 11/05/2021 1:44 PM Thank you for letting us participate in the care of this patient. If you are a health care provider and have any questions regarding this report, please contact the number above. For patients who have questions, please contact the health care connector that requested your imaging first. ? Clari Smith, Staff Physician Electronically Signed Final Report ?? 11/05/2021 01:51 pm Narrative 11/05/2021 1:51 PM EST Ultrasound Inguinal Report ?(Signed Final 11/05/2021 01:51 pm) LEFT PATIENT INFO: ID #: ? [id number] ?: ??[birth year] (71 yrs)(M) Name: ? SHREE ORTEZ ? Visit Date: 11/05/2021 01:12 pm PERFORMED BY: Performed By: ? Marcelino Marcus RDMS Attending: ?Clari Smith MD. Referred By: ?FLASH LIVINGSTON Location: ? [place] SERVICE(S) PROVIDED: UEXTLMTL - Extremity Limited Non Vascular - Left ?[id number] - [id number] INDICATIONS: s/p left inguinal hernia 2015 with [...] 01:51 pm) LEFT PATIENT INFO: ID #: [id number] : 50 (71 yrs)(M) Name: SHREE ORTEZ Visit Date: 11/05/2021 01:12 pm PERFORMED BY: Performed By: Marcelino Marcus RDMS Attending: Clari Smith MD Referred By: FLASH LIVINGSTON Location: [place] SERVICE(S) PROVIDED: UEXTLMTL - Extremity Limited Non Vascular - Left [id number] - [id number] INDICATIONS: s/p left inguinal hernia 2015 with [...] seen with no evidence of hernia recurrence Electronically signed by: Clari Smith MD, [facility] ([phone]), at 11/05/2021 1:44 PM Thank you for letting us participate in the care of this patient. If you are a health care provider and have any questions regarding this report, please contact the number above. For patients who have questions, please contact the health care connector that requested your imaging first. Clari Smith, Staff Physician Electronically Signed Final Report 11/05/2021 01:51 pm Flash Livingston MD IMG US GEN ORDERABLE S documented in this encounter Visit Diagnoses Diagnosis Discomfort of left groin documented in this encounter Care Teams Computing Architect Relationship Specialty Start Date End Date Norma Murdock APRN [address] [place] [address] PCP - General Family Medicine 05/22/20 07/10/23 documented as of this encounter
--- OUTSIDE RECORDS SUMMARY | 2024-07-23 01:22 | XMS_ITS | Encounter Summary ---
Author Organization [facility] Address [facility] [address] [place] [place] [address] Care Team Providers Care Glass Calibrator Name Role Phone Duke Ramos MD Primary Care Provider Encounter Details Date Type Department Care Team (Late st Contact Info) Description 03/06/2018 Orders Only Urology at [facility] [place] [address] Toni Akbar MD [facility] [place] [place] [address] Social History Tobacco Use Types Packs/Day Years [...] on filedocumented in this encounter Care Teams Glass Calibrator Relationship Specialty Start Date End Date Duke Ramos MD [address] [place] [address] PCP - General Family Medicine 08/23/16 06/28/18 documented as of this encounter
--- OUTSIDE RECORDS SUMMARY | 2024-07-23 01:22 | XMS_ITS | Encounter Summary ---
Author Organization [facility] Address [facility] [place] [address] Care Team Providers Care Student Support Advisor Name Role Phone Amelia Goodwin APRN Primary Care Provider + Encounter Details Date Type Department Care Team (Latest Contact Info) Description 06/29/2018 11:19 AM EDT - 06/29/2018 11:59 PM EDT Hospital Encounter XRay at [address] [place] [address] Toni Akbar MD [facility] [place] [address] History of renal cell cancer Discharge Disposition: [...] of metastatic disease or other significant abnormality. Tnoi Akbar MD IMG DX ORDERABLES documented in this encounter Visit Diagnoses Diagnosis History of renal cell cancer documented in this encounter Care Teams Student Support Advisor Relationship Specialty Start Date End Date Amelia Goodwin APRN [address] [place] [address] PCP - General Family Medicine 06/29/18 05/21/20 documented as of this encounter
--- OUTSIDE RECORDS SUMMARY | 2024-07-23 01:22 | XMS_ITS | Encounter Summary ---
Author Organization [facility] Address [facility] [address] [place] [address] Care Team Providers Care Metalworking Specialist Name Role Phone Duke Ramos MD Primary Care Provider [phone] Encounter Details Date Type Department Care Team (Latest Contact Info) Description 06/19/2017 11:25 AM EDT - 06/19/2017 12:33 PM EDT Hospital Encounter XRay at [address] [place] [address] Pineda Montague MD S/P total hip arthroplasty, [...] left documented in this encounter Care Teams Metalworking Specialist Relationship Specialty Start Date End Date Duke Ramos MD [address] [place] [address] PCP - General Family Medicine 08/23/16 06/28/18 documented as of this encounter
--- OUTSIDE RECORDS SUMMARY | 2024-07-23 01:22 | XMS_ITS | Encounter Summary ---
Author Organization [facility] Address [facility] [place] [address] Care Team Providers Care Manager Support Services Name Role Phone Norma Murdock APRN Primary Care Provider [phone] Reason for Visit * Reason Comments Inguinal Hernia * Consultation (Routine) - Closed Specialty Diagnoses / Procedures Referred By Ugo t Referred To Contact General Surgery Diagnoses Unilateral inguinal hernia, without obstruction or gangrene, not specified as recurrent Norma Murdock APRN [address] [place] [address] [facility] [place] [address] Referral ID Status Reason Start Date Expiration Date V isits Requested Visits Authorized [id number] Closed Consult, [facility] PCP Updated and/or Approved 08/07/2021 08/07/2022 12 12 Encounter Details Date Type Department Care Team (Late st Contact Info) Description 10/08/2021 2:30 PM EST Office [place] [address] Flash Livingston MD [facility] [place] [address] Discomfort of left groin Social History Tobacco [...] EST General Surgery Clinic Note Patient Name: Shree Ortez Jr. : 1950 HPI: Jesus Ortez [...] groin ultrasound about a year ago at [facility], however the results were not conclusive [...] on the results together. Flash Livingston MD #[id number] documented in this encounter Plan of Treatment Scheduled Procedures Name Priority Associated Diagnoses Date/Ti ky EGD, UPPER GI ENDOSCOPY (WRV U 2.09) [...] who have questions, please contact the health after school caregiver that requested your imaging first. ? Clari Smith, Staff Physician Electronically Signed Final Report ?? 11/05/2021 01:51 pm Narrative 11/05/2021 1:51 PM EST Ultrasound Inguinal Report ?(Signed Final 11/05/2021 01:51 pm) LEFT PATIENT INFO: ID #: ? [id number] ?: ??[birth year] (71 yrs)(M) Name: ? SHREE ORTEZ ? Visit Date: 11/05/2021 01:12 pm PERFORMED BY: Performed By: ? Marcelino Marcus RDMS Attending: ?Luis SANTANA, Clari Varghese Referred By: ?FLASH LIVINGSTON Location: ? [place] SERVICE(S) PROVIDED: UEXTLMTL - Extremity Limited Non Vascular - Left ?[id number] - [id number] INDICATIONS: s/p left inguinal hernia 2015 with [...] 01:51 pm) LEFT PATIENT INFO: ID #: [id number] : 50 (71 yrs)(M) Name: SHREE ORTEZ Visit Date: 11/05/2021 01:12 pm PERFORMED BY: Performed By: Marcelino Marcus RDMS Attending: Clari Smith MD Referred By: FLASH LIVINGSTON Location: [place] SERVICE(S) PROVIDED: UEXTLMTL - Extremity Limited Non Vascular - Left [id number] - [id number] INDICATIONS: s/p left inguinal hernia 2015 with [...] who have questions, please contact the health after school caregiver that requested your imaging first. Clari Smith, Staff Physician Electronically Signed Final Report 11/05/2021 01:51 pm Flash Livingston MD IMG US GEN ORDERABLE S documented in this encounter Visit Diagnoses Diagnosis Discomfort of left groin Discomfort of left groin documented in this encounter Care Teams Manager Support Services Relationship Specialty Start Date End Date Norma Murdock APRN [address] [place] [address] PCP - General Family Medicine 05/22/20 07/10/23 documented as of this encounter
--- OUTSIDE RECORDS SUMMARY | 2024-07-23 01:22 | XMS_ITS | Encounter Summary ---
Author Organization [facility] [address] [place] [address] Care Team Providers Care Vegetable Canner Name Role Phone Amelia Goodwin APRN Primary Care Provider + Reason for Visit * Reason Comments Kidney Cancer Follow-up Encounter Details Date Type Department Care Team (Late st Contact Info) Description 06/29/2018 1:00 PM EDT [place] [address] Tnoi Akbar MD [facility] [place] [address] Renal cell carcinoma, unspecified laterality Social History [...] 0.27) performed by Pineda Montague MD at [facility] MAIN OR ??? PRO COLONOSCOPY, DIAGNOSTIC N/A 09/26/2014 COLONOSCOPY, DIAGNOSTIC performed by Nina Almaguer MD at [facility] ENDOSCOPY ??? PRO LAP, RADICAL NEPHRECTOMY 06/07/2014 @LAPAROSCOPY, RADICAL NEPHRECTOMY performed by Jarocho Jenkins MD at [facility] MAIN OR ??? PRO REPAIR ING HERNIA, 5+Y/O, REDUCIBL Left 07/07/2015 REPAIR INGUINAL HERNIA, 5 YR OR OLDER, REDUCIBLE performed by Flash Rivas MD at [facility] MAIN OR ??? PRO TOTAL HIP ARTHROPLASTY Left 01/15/2017 @TOTAL HIP ARTHROPLASTY, ANTERIOR APPROACH (WRVU 20.72) performed by Pineda Montague MD at [facility] MAIN OR ??? PRO UPPER GI ENDOSCOPY, BIOPSY N/A 09/26/2014 EGD WITH BIOPSY performed by Nina Almaguer MD at [facility] ENDOSCOPY ??? TOTAL NEPHRECTOMY Left 06/07/14 Social [...] laterality documented in this encounter Care Teams Vegetable Canner Relationship Specialty Start Date End Date Amelia Goodwin APRN [address] [place] [address] PCP - General Family Medicine 06/29/18 05/21/20 documented as of this encounter
--- OUTSIDE RECORDS SUMMARY | 2024-07-23 01:23 | XMS_ITS | Encounter Summary ---
Author Organization [facility] Address [facility] [place] [place] [address] Care Team Providers Care Filtering Machine Tender Helper Name Role Phone Duke Ramos MD Primary Care Provider [phone] Encounter Details Date Type Department Care Team (Latest Contact Info) Description 10/24/2016 10:05 AM EST - 10/24/2016 11:59 PM [facility] Hospital Encounter XRay at [address] [place] [address] Vance Jose MD [facility] [place] [address] Primary osteoarthritis of left shoulder Discharge Disposition: [...] pre- procedural time-out was performed as per [facility] protocol. The patient was placed supine on [...] A pre- proceduraltime-out was performed as per [facility] protocol. The patient was placed supine on [...] EST documented in this encounter Care Teams Filtering Machine Tender Helper Relationship Specialty Start Date End Date Duke Ramos MD [address] [place] [address] PCP - General Family Medicine 08/23/16 06/28/18 documented as of this encounter
--- OUTSIDE RECORDS SUMMARY | 2024-07-23 01:23 | XMS_ITS | Encounter Summary ---
[place] [address] Care Team Providers Care Delinquency Counselor Name Role Phone Duke Ramos MD Primary Care Provider [phone] Reason for Referral * Diagnostic Test (Routine) - Closed Specialty Diagnoses / Procedures Referred By Ugo t Referred To Contact Radiology Diagnoses Renal cancer, unspecified laterality Procedures CT Abdomen & Pelvis w Contrast Toni Akbar MD [facility] [place] [place] [address] [facility] [place] [address] Referral ID Status Reason Start Date Expiration Date V isits Requested Visits Authorized [id number] Closed Specialty Service Requested 06/18/2017 06/18/2018 1 1 Encounter Details Date Type Department Care Team (Late st Contact Info) Description 06/18/2017 [place] [address] Toni Akbar MD [facility] [place] [place] [address] Renal cancer, unspecified laterality Social [...] laterality documented in this encounter Care Teams Delinquency Counselor Relationship Specialty Start Date End Date Duke Ramos MD [address] [place] [address] PCP - General Family Medicine 08/23/16 06/28/18 documented as of this encounter
--- OUTSIDE RECORDS SUMMARY | 2024-07-23 01:23 | XMS_ITS | Encounter Summary ---
Author Organization [facility] Address [facility] [address] Care Team Providers Care Post Partum Nurse Name Role Phone Duke Ramos MD Primary Care Provider [phone] Reason for Visit * Reason Comments Follow Up Surgery Left Ant JOHN DOS 12/22 03/08 Encounter Details Date Type Department Care Team (Late st Contact Info) Description 04/10/2017 11:10 AM EDT Office [place] [address] Pineda Montague MD Status post total replacement [...] Abductors: 5 Trendelenburg test: negative Questionnaire Responses: [facility] Surgical Postop Visit 04/10/2017 PROMIS-10 General Health [...] Choose Same Treatment Again Probably yes [facility] Response 02/13/2017 HOOS JR Scores 61.82 Spine [...] hip documented in this encounter Care Teams Post Partum Nurse Relationship Specialty Start Date End Date Duke Ramos MD [address] [place] [address] PCP - General Family Medicine 08/23/16 06/28/18 documented as of this encounter
--- OUTSIDE RECORDS SUMMARY | 2024-07-23 01:23 | XMS_ITS | Encounter Summary ---
Author Organization [facility] Address [facility] [address] [place] [place] [address] Care Team Providers Care Manager Transport Name Role Phone Duke Ramos MD Primary Care Provider [phone] Encounter Details Date Type Department Care Team (Late st Contact Info) Description 12/23/2016 12:00 PM EDT Notes Only Orth[facility]edics [facility] [place] [address] Social History Tobacco Use Types Packs/Day Years [...] We discussed qualifications to go to a senior care facility. We discussed Medicare guidelines for admission into a senior care facilityas well as transportation, namely, ambulance and [...] patient that they will be workingwith a adult daycare coordinator after surgery to facilitate the discharge plan. I encouraged the patient to call me with any questions or concerns prior to the surgery as well as when they discharge home. 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 Potential Needs for Transition of Care: Rehab/SNF: [facility] (His niece runs the place and his sister is presently there. He met with the client service coordinator at [facility] and was told they will accept his insurance.) [facility] Based on discussions with the multi-disciplinary healthcare team, the patient would benefit from - level of care at discharge. ?? I have met with the patient/customer service representative teacher to discuss discharge planning needs. I have provided the [facility], Office of Care Management letter from the Assistant Corporate Secretary pertaining to rehab referrals. I have also provided a letter describing our affiliations within the [facility] and educated them about their right to choose where referrals are placed. ?? I reviewed the different levels of rehab including SNF, swing, acute and LTAC with the patient/customer service representative teacher. ?? The patient/customer service representative teacher has been provided a list of facilities within their preferred geographic area. ?? I have requested that the patient/customer service representative teacher provide at least three choices for referral. ?? The patient/customer service representative teacher have requested referrals to: ?? 1. [facility] ?? 2. [facility] ?? 3. ?? Expected date of discharge: Note routed to Registration Rep who will communicate referrals to facilities and provide any required information. Home Health: No selection (He prefers to not have [facility] come to his workshop/home) OP PT: [facility] [place] DME: 2 FWW. Dialysis: No Community Resources: None Transportation: We discussed that since we cannot determine the exact day or time of surgery, his transportation must be readily available at time of discharge. He will be transported by [facility]. Other: None Anticipated Barriers to Discharge/Special Considerations: None Plan: He prefers to go to [facility]. A member of the Care Management team will continue to monitor progress, follow for continuity of care and assist with transition of care planning. Oly Alonso Pager: [phone] documented in this encounter Plan of Treatment Scheduled Procedures Name Priority Associated Diagnoses Date/Ti me EGD, UPPER GI ENDOSCOPY (WRV U 2.09) Esophageal dysphagia Encounter for colorectal cancer screening COLONOSCOPY, DIAGNOSTIC (WRV U 3.26) Esophageal dysphagia Encounter for colorectal cancer screening documented as of this encounter Visit Diagnoses Not on filedocumented in this encounter Care Teams Manager Transport Relationship Specialty Start Date End Date Duke Ramos MD [address] [place] [address] PCP - General Family Medicine 08/23/16 06/28/18 documented as of this encounter
--- OUTSIDE RECORDS SUMMARY | 2024-07-23 01:23 | XMS_ITS | Encounter Summary ---
Author Organization [facility] [place] [address] Care Team Providers Care Wire Taper Name Role Phone Duke Ramos MD Primary Care Provider [phone] Reason for Referral * Diagnostic Test (Routine) - Closed Specialty Diagnoses / Procedures Referred By Ugo maynard Referred To Contact Radiology Diagnoses History of kidney cancer Procedures CT Abdomen wwo Contrast Jarocho Jenkins MD [address] [place] [address] [facility] [place] [address] Referral ID Status Reason Start Date Expiration Date V isits Requested Visits Authorized [id number] Closed Specialty Service Requested 07/15/2016 07/15/2017 1 1 Reason for Visit * Diagnostic Test (Routine) - Closed Specialty Diagnoses / Procedures Referred By Ugo maynard Referred To Contact Radiology Diagnoses History of kidney cancer Procedures CT Abdomen wwo Contrast Jarocho Jenkins MD [address] [place] [address] [facility] [place] [address] Referral ID Status Reason Start Date Expiration Date V isits Requested Visits Authorized [id number] Closed Specialty Service Requested 07/15/2016 07/15/2017 1 1 Encounter Details Date Type Department Care Team (Latest Contact Info) Description 10/22/2016 12:57 PM EST - 10/22/2016 11:59 PM EST Hospital [place] [address] Jarocho Jenkins MD [address] [place] [address] History of kidney cancer Discharge Disposition: Home [...] mLs documented in this encounter Care Teams Wire Taper Relationship Specialty Start Date End Date Duke Ramos MD [address] [place] [address] PCP - General Family Medicine 08/23/16 06/28/18 documented as of this encounter
--- OUTSIDE RECORDS SUMMARY | 2024-07-23 01:23 | XMS_ITS | Encounter Summary ---
Author Organization [facility] Address [facility] [place] [address] Care Team Providers Care Roller Picker Name Role Phone Duke Ramos MD Primary Care Provider [phone] Reason for Visit * Reason Comments Follow Up Surgery Left ANT JOHN DoS: Encounter Details Date Type Department Care Team (Late st Contact Info) Description 02/13/2017 11:00 AM EDT Office [place] [address] Pineda Montague MD Status post total replacement [...] subsidence, loosening, or periprosthetic complication. Questionnaire Responses: [facility] Surgical Postop Visit 02/13/2017 PROMIS-10 General [...] hip documented in this encounter Care Teams Roller Picker Relationship Specialty Start Date End Date Duke Ramos MD [address] [place] [address] PCP - General Family Medicine 08/23/16 06/28/18 documented as of this encounter
--- OUTSIDE RECORDS SUMMARY | 2024-07-23 01:23 | XMS_ITS | Encounter Summary ---
Author Organization [facility] [place] [address] Care Team Providers Care Social Worker Assistant Name Role Phone Duke Ramos MD Primary Care Provider [phone] Encounter Details Date Type Department Care Team (Late st Contact Info) Description 06/18/2017 Orders [place] [address] Pineda Montague MD S/P total hip arthroplasty, [...] left documented in this encounter Care Teams Social Worker Assistant Relationship Specialty Start Date End Date Duke Ramos MD [address] [place] [address] PCP - General Family Medicine 08/23/16 06/28/18 documented as of this encounter
--- OUTSIDE RECORDS SUMMARY | 2024-07-23 01:23 | XMS_ITS | Encounter Summary ---
Author Organization [facility] [place] [address] Care Team Providers Care Hip Hop Performers Name Role Phone Duke Ramos MD Primary Care Provider [phone] Encounter Details Date Type Department Care Team (Latest Contact Info) Description 10/22/2016 1:15 PM EST Laboratory Appointment Lab 3L [facility] [place] [phone] History of kidney cancer Social History Tobacco [...] Scheduled Procedures Name Priority Associated Diagnoses Date/Ti ia EGD, UPPER GI ENDOSCOPY (WRV U 2.09) [...] EST) Glucose 128 65 - 199 mg/dL [facility] Comment:Diabetes: >=200 mg/d L plus symptoms Blood Urea Nitrogen 25(H) 10 - 20 mg/dL [facility] Creatinine 1.72(H) 0.80 - 1.50 mg/dL [facility] Comment: Please note that the pediatric reference intervals supplied above were not validated [place] [facility] Results from pediatric patients should be interpreted in conjunction to the patient's age, height and muscle mass. Sodium 139 135 - 145 mmol/L [facility] Potassium 4.8 3.5 - 5.0 mmol/L [facility] Comment: Please note: ??Patients with WBC >100,000 may have falsely elevated Potassium levels. ??For accurate Potassium quantification in these patients send serum separator tube (gold top) for subsequent determinations. ??Contact the Clinical Chemistry Laboratory if there are any questions. Chloride 103 98 - 107 mmol/L [facility] Carbon Dioxide 24 22 - 31 mmol/L [facility] Anion Gap 12 5 - 15 mmol/L [facility] Calcium 9.0 8.5 - 10.5 mg/dL [facility] Protein, Total 7.0 6.1 - 8.0 gm/dL [facility] Albumin 4.1 3.2 - 5.2 gm/dL [facility] Aspartate Aminotransferase 30 0 - 39 unit/L [facility] Alanine Aminotransferase 47 0 - 55 unit/L [facility] Alkaline Phosphatase 121(H) 40 - 120 unit/L [facility] Bilirubin, Total 0.3 0.2 - 1.3 mg/dL [facility] Bilirubin, Direct 0.1 0.0 - 0.3 mg/dL [facility] Est Glomerular Filtration Rate 40(L) >=60 [facility] Comment: This estimated GFR (eGFR) [...] the following links into your internet browser. [email or web address] Blood specimen (specimen) 10/22/2016 12:14 PM EST 10/22/2016 12:19 PM EST Narrative Resulting Agency Comment Spec In Lab Jarocho Jenkins MD [place] [address] documented in this encounter Visit Diagnoses Diagnosis History of kidney cancer Personal history of malignant neoplasm of kidney documented in this encounter Care Teams Hip Hop Performers Relationship Specialty Start Date End Date Duke Ramos MD [address] [place] [address] PCP - General Family Medicine 08/23/16 06/28/18 documented as of this encounter
--- OUTSIDE RECORDS SUMMARY | 2024-07-23 01:23 | XMS_ITS | Encounter Summary ---
[facility] [place] [address] Care Team Providers Care Cabin Crew Name Role Phone Duke Ramos MD Primary Care Provider [phone] Encounter Details Date Type Department Care Team (Late st Contact Info) Description 10/22/2016 3:40 PM EST Office Visit Urology at [facility] [place] [phone] Jarocho Jenkins MD [address] [place] [address] History of kidney cancer Social History Tobacco [...] EDT) Glucose 96 65 - 199 mg/dL [facility] Comment:Diabetes: >=200 mg/d L plus symptoms Blood Urea Nitrogen 24(H) 10 - 20 mg/dL [facility] Creatinine 1.49 0.80 - 1.50 mg/dL [facility] Comment: Please note that the pediatric reference intervals supplied above were not validated at [facility]. Results from pediatric patients should be interpreted in conjunction to the patient's age, height and muscle mass. Sodium 143 135 - 145 mmol/L [facility] Potassium 4.7 3.5 - 5.0 mmol/L [facility] Comment: Please note: ??Patients with WBC >100,000 may have falsely elevated Potassium levels. ??For accurate Potassium quantification in these patients send serum separator tube (gold top) for subsequent determinations. ??Contact the Clinical Chemistry Laboratory if there are any questions. Chloride 105 98 - 107 mmol/L [facility] Carbon Dioxide 26 22 - 31 mmol/L [facility] Anion Gap 12 5 - 15 mmol/L [facility] Calcium 9.3 8.5 - 10.5 mg/dL [facility] Protein, Total 7.4 6.1 - 8.0 gm/dL [facility] Albumin 4.1 3.2 - 5.2 gm/dL [facility] Aspartate Aminotransferase 23 0 - 39 unit/L [facility] Alanine Aminotransferase 30 0 - 55 unit/L [facility] Alkaline Phosphatase 130(H) 40 - 120 unit/L [facility] Bilirubin, Total 0.4 0.2 - 1.3 mg/dL [facility] Est Glomerular Filtration Rate 47(L) >=60 [facility] Comment: This estimated GFR [...] the following links into your internet browser. [email or web address] Blood specimen (specimen) 06/19/2017 11:21 AM EDT 06/19/2017 11:26 AM EDT Narrative Resulting Agency Comment Spec In Lab Jarocho Jenkins MD CHEMISTRY ORDERABLES [facility] [place] [address] * Urine culture Clean Catch Urine (10/22/2016 5:09 PM EST) Urine Culture No growth (Less than 1,000 cfu/ml). [facility] Urine specimen obtained by clean catch procedure (specimen) 10/22/2016 5:09 PM EST 10/22/2016 5:09 PM EST Narrative Resulting Agency Comment Spec In Lab Jarocho Jenkins MD MICROBIOLOGY - GENER AL ORDERABLES [facility] [place] [address] * (ABNORMAL) Urinalysis with reflex Culture (10/22/2016 3:54 PM EST) Glucose, Urine Dipstick Negative Negative mg/dL [facility] Protein, Urine Dipstick Negative Negative mg/dL [facility] Bilirubin, Urine Dipstick Negative Negative mg/dL [facility] Comment: Clinical correlation required for positive Urine Bilirubin results as false positive may occur with some drugs and drug related products. If a false positive is suspected a serum total bilirubin should be considered if clinically indicated. Urobilinogen, Urine Dipstick Normal Normal mg/dL [facility] pH, Urn (dipstick) 6.0 5.0 - 8.0 [facility] Blood, Urine Dipstick Negative Negative mg/dL [facility] Ketone, Urine Dipstick Negative Negative mg/dL [facility] Nitrite, Urine Dipstick Negative Negative [facility] Leukocytes, Urine Dipstick Negative Negative [facility] Appearance, Urine Dipstick Clear Clear [facility] Specific [place] Urine Automated >1.035(H) 1.002 - 1.030 [facility] Color, Urine Dipstick Straw Yellow [facility] RBC, Urine 1 0 - 3 /HPF [facility] WBC, Urine Not Present 0 - 3 /HPF [facility] Reflex to Culture No [facility] Urine specimen obtained by clean catch procedure (specimen) 10/22/2016 3:54 PM EST 10/22/2016 5:01 PM EST Narrative Resulting Agency Comment Spec In Lab Jarocho Jenkins MD URINE ORDERABLES [facility] [place] [address] documented in this encounter Visit Diagnoses Diagnosis History of kidney cancer Personal history of malignant neoplasm of kidney History of kidney cancer Personal history of malignant neoplasm of kidney documented in this encounter Care Teams Cabin Crew Relationship Specialty Start Date End Date Duke Ramos MD [address] [address] PCP - General Family Medicine 08/23/16 06/28/18 documented as of this encounter
--- OUTSIDE RECORDS SUMMARY | 2024-07-23 01:23 | XMS_ITS | Encounter Summary ---
Author Organization [facility] [address] Care Team Providers Care Counter Waitress/Waiter Name Role Phone Duke Ramos MD Primary Care Provider [phone] Reason for Visit * Reason Comments Left Hip Pain Left Shoulder Pain * Consultation (Routine) - Closed Specialty Diagnoses / Procedures Referred By Ugo maynard Referred To Contact Orthopaedics Diagnoses left hip pain Left shoulder pain Duke Ramos MD [address] [place] [id number] [facility] [address] [place] [phone] Referral ID Status Reason Start Date Expiration Date V isits Requested Visits Authorized [id number] Closed Consult, Test & Treat [facility] 08/23/2016 08/23/2017 1 1 Encounter Details Date Type Department Care Team (Latest Contact Info) Description 10/22/2016 10:30 AM EST [place] [phone] Vance Jose MD [facility] [address] ORTHOPAEDIC SURGERY [place], [place] [phone] Primary osteoarthritis of left shoulder; Primary osteoarthritis [...] arthroplasty team for hip. Vance Jose MD Retail Sales Professional Orthopaedic Surgery Dept. of Orthopaedic Surgery [facility] documented in this encounter Plan of Treatment [...] pre- procedural time-out was performed as per [facility] protocol. The patient was placed supine on [...] A pre- proceduraltime-out was performed as per [facility] protocol. The patient was placed supine on [...] region documented in this encounter Care Teams Counter Waitress/Waiter Relationship Specialty Start Date End Date Duke Ramos MD [address] [place] [id number] PCP - General Family Medicine 08/23/16 06/28/18 documented as of this encounter
--- OUTSIDE RECORDS SUMMARY | 2024-07-23 01:23 | XMS_ITS | Encounter Summary ---
Author Organization [facility] Address [facility] [address] [id number] Care Team Providers Care Metal Annealer Name Role Phone Duke Ramos MD Primary Care Provider [phone] Encounter Details Date Type Department Care Team (Latest Contact Info) Description 02/13/2017 9:13 AM EDT - 02/13/2017 11:59 PM EDT Hospital Encounter XRay at [address] [place] [phone] Pineda Montague MD Primary osteoarthritis of left [...] with food. 56 tablet 01/17/2017 02/14/2017 multivitamin Mcrh-Uz-TL-Min (THERAPEUTIC-M) 27-0.4 mg Tablet Take 1 tablet [...] thigh documented in this encounter Care Teams Metal Annealer Relationship Specialty Start Date End Date Duke Ramos MD [address] [place] [address] PCP - General Family Medicine 08/23/16 06/28/18 documented as of this encounter
--- OUTSIDE RECORDS SUMMARY | 2024-07-23 01:23 | XMS_ITS | Encounter Summary ---
Author Organization [facility] Address [facility] [place] [address] Care Team Providers Care Podiatrist Orthopedic Name Role Phone Duke Ramos MD Primary Care Provider [phone] Reason for Visit * Reason Comments Left Hip Pain pre-op visit for LEF T ANT JOHN Encounter Details Date Type Department Care Team (Latest Contact Info) Description 12/23/2016 2:00 PM EDT Office [place] [phone] Geovani Reyna MD [facility] [place] [address] Preop examination; Primary osteoarthritis of left hip; [...] kidney documented in this encounter Care Teams Podiatrist Orthopedic Relationship Specialty Start Date End Date Duke Ramos MD [address] [place] [address] PCP - General Family Medicine 08/23/16 06/28/18 documented as of this encounter
--- OUTSIDE RECORDS SUMMARY | 2024-07-23 01:23 | XMS_ITS | Encounter Summary ---
Author Organization [facility] Address [facility] [place] [address] Care Team Providers Care Web Retailer Name Role Phone Duke Ramos MD Primary Care Provider [phone] Encounter Details Date Type Department Care Team (Late st Contact Info) Description 02/13/2017 11:30 AM EDT Notes Only Orthopaedics at [facility] [place] [address] Social History Tobacco Use Types Packs/Day Years [...] filedocumented in this encounter Care Teams Web Retailer Relationship Specialty Start Date End Date Duke Ramos MD [address] [place] [address] PCP - General Family Medicine 08/23/16 06/28/18 documented as of this encounter
--- OUTSIDE RECORDS SUMMARY | 2024-07-23 01:23 | XMS_ITS | Encounter Summary ---
[place] [address] Care Team Providers Care Primary Counselor Name Role Phone Duke Ramos MD Primary Care Provider [phone] Reason for Visit * Auth/Cert Specialty Diagnoses / Procedures Referred By Ugo t Referred To Contact Diagnoses Primary osteoarthritis of left hip left hip osteoarthritis Procedures PRO TOTAL HIP ARTHROPLASTY @TOTAL HIP ARTHROPLASTY, ANTERIOR APPROACH (WRVU 20.72) MODIFIER CORAIL FEMORAL STEM DEPUY MODIFIER PINNACLE ACETABULUM DEPUY Referral ID Status Reason Start Date Expiration Date Visits Re quested Visits Authorized [id number] 1 1 Encounter Details Date Type Department Care Team (Late st Contact Info) Description 01/15/2017 7:30 AM EDT - 01/15/2017 10:28 AM EDT Surgery [place] [address] Pineda Montague MD TOTAL HIP ARTHROPLASTY, ANTERIOR [...] Ortez Jr. Patient Age: 66 y.o. Language: Ugandan Race: White Ethnicity: Not nor Admit date: 01/15/2017 Discharge date and time: 01/17/2017 Attending Physician: Pineda Montague MD Discharge Physician: Pineda Montague MD Follow-up Recommendations for Providers: See discharge instructions for additional details. Future Appointments Date Time Provider Department Center 02/13/2017 10:00 AM [facility] DX ROOM 1 Xray [facility] 02/13/2017 11:00 AM Pineda Montague MD [facility] Ortho 3C [facility] 02/13/2017 11:30 AM ORTHO ARCHITECT MANAGER [facility] Ortho [facility] Inpatient Provider Contact Information: Pineda Montague MD Orthopedics: [phone] After hours and weekends, call [facility] Director Writing, , and have the Orthopedic resident paged. [...] Rehab Patient [facility] [place] [address] Updated Allergies/ADRs: No Known Allergies Immunizations Given [...] mg Quantity: 26 capsule Refills: 0 multivitamin Zflw-Be-BW-Min 27-0.4 mg Tab Commonly known as: THERAPEUTIC-M [...] fiber while on narcotic pain meds. 4. [place]/Sutures: No external maría or sutures inplace. Sutures [...] bowel movement. You can also take an hqov-srd-stwcevb medication, Miralax if needed to combat constipation. [...] 1. You will have follow-up appointments at [facility] as indicated below in Future Appointment and Orders. 2. You will need to have x-rays prior to your follow-up appointment on 02/13/17. Please come to Radiology, desk 3T, 1 hour BEFORE that appointment for these x-rays. Future Appointments Date Time Provider Department Center 02/13/2017 10:00 AM [facility] DX ROOM 1 [facility]ray [facility] 02/13/2017 11:00 AM Pineda Montague MD [facility] 02/13/2017 11:30 AM ORTHO ARCHITECT MANAGER [facility] Ortho [facility] If you have questions or concerns: Friday through Friday, 8 AM - 5 PM, please call Pineda Reeves MD's office at . If it is after 5 PM, the weekend, or holidays, please call and ask to speak with theOrthopedic resident on-call. Future Appointments and Orders Future Appointments Provider Department Dept Phone 02/13/2017 11:00 AM Pineda Montague MD Orthopaedics [phone] 02/13/2017 11:30 AM ORTHO ARCHITECT MANAGER Orthopaedics [phone] Primary Care Provider: Duke Ramos MD [phone] Discharge References/Attachments None documented in this encounter [...] bowel movement. You can also take an sxxf-hlq-cjsacpf medication, Miralax if needed to combat constipation. [...] 1. You will have follow-up appointments at [facility] as indicated below in Future Appointment and Orders. 2. You will need to have x-rays prior to your follow-up appointment on 02/13/17. Please come to Radiology, desk , 1 hour BEFORE that appointment for these x-rays. Future Appointments Date Time Provider Department Center 02/13/2017 10:00 AM [facility] DX ROOM 1 [facility]ray [facility] 02/13/2017 11:00 AM Pineda Montague MD [facility] 02/13/2017 11:30 AM ORTHO ARCHITECT MANAGER [facility] Ortho [facility] If you have questions or concerns: [...] daily as needed (constipation). 01/17/2017 02/13/2017 multivitamin Evtv-Eg-ZW-Min (THERAPEUTIC-M) 27-0.4 mg Tablet Take 1 tablet [...] Report called andgiven to DEANNA Gorman at [facility]. * Radha Perez RN - 01/17/2017 11:09 AM EDT Patient Name: Shree Ortez Jr. : 1950 Patient has been offered a snf bed at [facility] for today. No MD to MD report necessary Please call Nursing Report to [phone] , ask for caterpillar mechanic. Info to accompany patient: Narcotic Prescriptions Copies of Medication Administration Records and IV sheets for past two weeks. Friend will transport pt via car around 12:30-1. [facility] [address] [id number] Plan: Substation Supervisor will be available to the patient and CRC for further assistance. Radha Perez RN Pager [phone] * Jody Patel MD - 01/17/2017 6:56 [...] Time Provider Department Center 02/13/2017 10:00 AM [facility] DX ROOM 1 [facility]ray [facility] 02/13/2017 11:00 AM Pineda Montague MD [facility] 02/13/2017 11:30 AM ORTHO ARCHITECT MANAGER [facility] * Montse Curran [...] [place] Secondary Insurance: None Prescription Coverage: [facility] Preferred Pharmacy: [place] [address] Other: None ?? Primary Care Provider: Duke Ramos MD [phone] ?? Patient/Caregiver Goals of Treatment: He wants to be able to do woodworking. ?? Potential Needs for Transition of Care: Rehab/SNF: patient has spoken with ( Luciana) @ [facility] and R facility in [place] re his [employer] insurance and they have told him they [...] Time Provider Department Center 02/13/2017 10:00 AM [facility] DX ROOM 1 [facility]ray [facility] 02/13/2017 11:00 AM Pineda Montague MD [facility] 02/13/2017 11:30 AM ORTHO ARCHITECT MANAGER [facility] Associated attestation - Pineda Montague MD - 01/16/2017 5:47 PM EDT Patient seen and examined on rounds. Agree with resident note. Pineda Montague M.D. [place] Department of Orthopaedics * Gricel Jaramillo MD [...] in this encounter H&P Notes * Pineda Montauge MD - 01/15/2017 6:13 AM EDT The [...] Anticipated Discharge Disposition: inpatient rehabilitation facility Pager: [phone] Patti Cedeno OT Occupational Therapy Rehabilitation Department [...] today???s session. Social History: Patient lives in [place], [place] in a 2 level home with [...] Anticipated Discharge Disposition: inpatient rehabilitation facility Pager: [phone] Urban Wright, PT 01/16/2017 Inpatient Physical Therapy Problem: Acute Rehab Services Goal & Intervention Plan Goal: Bed Mobility Goal Stand Alone Therapy Goal Outcome: Ongoing (Interventions Implemented as Appropriate) 01/16/17 1119 Bed Mobility Goal Bed Mobility Goal, Date Established 01/16/17 Bed Mobility Goal, Time to Achieve 2 wks Bed Mobility Goal, Activity Type all bed mobility activities Bed Mobility Goal, [place] Level independent Bed Mobility Goal, Assistive Device leg clinical account specialist Goal: Gait Training Goal Stand Alone Therapy Goal Outcome: Ongoing (Interventions Implemented as Appropriate) 01/16/17 1119 Gait Training Goal Gait Training Goal, Date Established 01/16/17 Gait Training Goal, Time to Achieve 2 wks Gait Training Goal, [place] Level conditional independence Gait Training Goal, Assist [...] standing static/dynamic activities with RWsupport PT Goal, [place] Level conditional independence Goal: Strength Goal Stand [...] Activity Type all transfers Transfer Train Goal, [place] Level conditional independence Transfer Training Goal, Assist [...] Note Patient Name: Shree Ortez Jr. : [id number] MR#: [id number] Date of surgery: 01/15/2017 ?? Preoperative diagnosis: Left hip osteoarthritis ?? Postoperative diagnosis: Left hip osteoarthritis ?? Procedure: Left total hip arthroplasty ?? Anesthesia: General ?? Surgeon: Pineda Montague MD ?? Hot Tar Roofer Helper: Jody Camejo MD ?? Estimated blood loss: 550 cc ?? Fluids: 600 cc ?? Urine output: Due to Void ?? Drains: None ?? Complications: None ?? Implants: 1. 12 Corail coxa vara femoral stem 2. 54 mm [place] 100 Gription acetabular shell 3. 36 x [...] services accepted. Informed patient that an inpatient toddler caregiver will be working to expedite the discharge process and to direct questions to the assigned toddler caregiver. ?? Reason for Hospitalization: Primary OA of [...] We discussed qualifications to go to a chcf facility. We discussed Medicare guidelines for admission into a chcf facilityas well as transportation, namely, ambulance and [...] patient that they will be workingwith a toddler caregiver after surgery to facilitate the discharge plan. I encouraged the patient to call me with any questions or concerns prior to the surgery as well as when they discharge home. ? Health/Prescription Coverage: Primary Insurance: [employer] Secondary Insurance: None Prescription Coverage: [place] [employer] Preferred Pharmacy: [facility] [address] [place] [id number] Other: None ?? Primary Care Provider: Duke Ramos MD [phone] ?? Patient/Caregiver Goals of Treatment: He wants to be able to do woodworking. ?? Potential Needs for Transition of Care: Rehab/SNF: [facility] ?? Based on discussions with the multi-disciplinary healthcare team, the patient would benefit from - level of care at discharge. ? I have met with the patient/electronics parts sales representative to discuss discharge planning needs. I have provided the [facility], Office of Care Management letter from the Support Representative pertaining to rehab referrals. I have also provided a letter describing our affiliations within the [facility] and educated them about their right to choose where referrals are placed. ?? I reviewed the different levels of rehab including SNF, swing, acute and LTAC with the patient/electronics parts sales representative. ?? The patient/electronics parts sales representative has been provided a list of facilities within their preferred geographic area. ?? I have requested that the patient/electronics parts sales representative provide at least three choices for referral. ?? The patient/electronics parts sales representative have requested referrals to: ?? 1. [facility] ?? 2. [facility] ?? 3. ?? Expected date of discharge: ?? Note routed to Substation Supervisor who will communicate referrals to facilities and provide any required information. ?? Home Health: No selection (He prefers to not have [facility] come to his workshop/home) OP PT: [facility], [place] DME: 2 FWW. Dialysis: No Community Resources: None Transportation: We discussed that since we cannot determine the exact day or time of surgery, his transportation must be readily available at time of discharge. He will be transported by [employer]. Other: None ?? Anticipated Barriers to Discharge/Special [...] of care planning. ?? Oly Alonso Pager: [phone] Chart reviewed and had a message from Oly that pt would like referrals made to [facility] and [facility] at d/c. Pt is still in the OR but will be coming to 3W post-op. I am unsure of how he will transport. * Op Note - Pineda Montague MD - 01/15/2017 7:41 AM EDT [facility] Operative Note Patient Name: Shree Ortez Jr. : [id number] MR#: [id number] Date of surgery: 01/15/2017 Preoperative diagnosis: Left hip osteoarthritis Postoperative diagnosis: Left hip osteoarthritis Procedure: Left total hip arthroplasty Anesthesia: General Surgeon: Pineda Montague MD Hot Tar Roofer Helper: Jody Camejo MD Estimated blood loss: 550 cc Fluids: 600 cc Urine output: Due to Void Drains: None Complications: None Implants: 1. 12 Corail coxa vara femoral stem 2. 54 mm [place] 100 Gription acetabular shell 3. 36 x [...] IMPLANTABLE DEVICES SCAN 01/18/2017 12:00 AM EDT BOAT ENGINES INSTALLER SCAN 01/18/2017 12:00 AM EDT HEMOGRAM Routine [...] SCAN EXT O RDR/RSLT * SCAN DOC: BOAT ENGINES INSTALLER (01/18/2017 12:00 AM EDT) Anatomical Region Laterality Modality Other Narrative 01/18/2017 12:00 AM EDT Ordered by an unspecified provider. Scanning Provider MEDIA MGR SCAN EXT O RDR/RSLT * (ABNORMAL) Differential, Automated (01/17/2017 4:37 AM EDT) Neutrophil % 80.6 % [facility] Neutrophil Absolute 8.94(H) 1.70 - 6.10 x10(3)/mc L [facility] Lymph % 11.0 % [facility] Lymphocytes Abs 1.2 0.9 - 3.2 x10(3)/mc L [facility] Monocyte % 7.9 % [facility] Monocyte Abs 0.9 0.3 - 0.9 x10(3)/mc L [facility] Eos % 0.0 % [facility] Eosinophils Abs 0.0 0.0 - 0.4 x10(3)/mc L [facility] Basophil % 0.0 % [facility] Baso Absolute 0.0 0.0 - 0.1 x10(3)/mc L [facility] Immature Gran % 0.50 % [facility] Comment: Immature granulocytes(IG's)percentage and absolute count will include metamyelocytes, myelocytes, and promyelocytes. Blood smears from CBCs yielding IG's will be scanned manually for concordance. If this scan disagrees with the automated IG or if promyelocytes are noted, a manual differential will be performed. Immature Gran Absolute 0.06(H) 0.00 - 0.04 x10(3)/mc L [facility] Blood specimen (specimen) 01/17/2017 4:37 AM EDT 01/17/2017 5:01 AM EDT Narrative Resulting Agency Comment Spec In Lab Pineda Montague MD HEMATOLOGY ORDERABLE S [facility] [place] [address] * (ABNORMAL) Hemogram (01/17/2017 4:37 AM EDT) White Blood Cell 11.1(H) 4.0 - 9.5 x10(3)/mc L [facility] Red Blood Cell 3.41(L) 4.58 - 5.54 x10(6)/mc L [facility] Hemoglobin 10.6(L) 13.7 - 16.5 gm/dL [facility] Hematocrit 31.0(L) 40.5 - 48.5 % [facility] Mean Cell Volume 90.9 82.9 - 93.1 fL [facility] Mean Cell Hemoglobin 31.1 27.5 - 32.1 pg [facility] Mean Cell Hemoglobin Concentration 34.2 32.0 - 35.7 gm/dL [facility] Platelet 174 145 - 357 x10(3)/mc L [facility] RDW Standard Deviation 43.2 36.0 - 45.0 fL [facility] RDW coefficient of variation 13.1 11.4 - 13.8 % [facility] Mean Platelet Volume 10.6 7.6 - 12.9 fL [facility] NRBC% auto 0.0 % [facility] NRBC Absolute 0.000 0.000 - 0.000 x10(3)/mc L [facility] Blood specimen (specimen) 01/17/2017 4:37 AM EDT 01/17/2017 5:01 AM EDT Narrative Resulting Agency Comment Spec In Lab Pineda Montague MD HEMATOLOGY ORDERABLE S [facility] [place] [address] * (ABNORMAL) Basic Metabolic Panel (non-fasting) (01/17/2017 4:37 AM EDT) Glucose 126 65 - 199 mg/dL [facility] Comment:Diabetes: >=200 mg/d L plus symptoms Blood Urea Nitrogen 33(H) 10 - 20 mg/dL [facility] Creatinine 1.74(H) 0.80 - 1.50 mg/dL [facility] Comment: Please note that the pediatric reference intervals supplied above were not validated at [facility]. Results from pediatric patients should be interpreted in conjunction to the patient's age, height and muscle mass. Sodium 144 135 - 145 mmol/L [facility] Potassium 4.7 3.5 - 5.0 mmol/L [facility] Comment: Please note: ??Patients with WBC >100,000 may have falsely elevated Potassium levels. ??For accurate Potassium quantification in these patients send serum separator tube (gold top) for subsequent determinations. ??Contact the Clinical Chemistry Laboratory if there are any questions. Chloride 107 98 - 107 mmol/L [facility] Carbon Dioxide 25 22 - 31 mmol/L [facility] Anion Gap 12 5 - 15 mmol/L [facility] Calcium 8.2(L) 8.5 - 10.5 mg/dL [facility] Est Glomerular Filtration Rate 39(L) >=60 [facility] Comment: This [...] the following links into your internet browser. [email or web address] Blood specimen (specimen) 01/17/2017 4:37 AM EDT 01/17/2017 5:01 AM EDT Narrative Resulting Agency Comment Spec In Lab Pineda Montague MD CHEMISTRY ORDERABLES [facility] [place] [address] * (ABNORMAL) Differential, Automated (01/16/2017 3:42 AM EDT) Neutrophil % 84.4 % [facility] Neutrophil Absolute 10.34(H) 1.70 - 6.10 x10(3)/mc L [facility] Lymph % 7.3 % [facility] Lymphocytes Abs 0.9 0.9 - 3.2 x10(3)/mc L [facility] Monocyte % 7.7 % [facility] Monocyte Abs 0.9 0.3 - 0.9 x10(3)/mc L [facility] Eos % 0.0 % [facility] Eosinophils Abs 0.0 0.0 - 0.4 x10(3)/mc L [facility] Basophil % 0.1 % [facility] Baso Absolute 0.0 0.0 - 0.1 x10(3)/mc L [facility] Immature Gran % 0.50 % [facility] Comment: Immature granulocytes(IG's)percentage and absolute count will include metamyelocytes, myelocytes, and promyelocytes. Blood smears from CBCs yielding IG's will be scanned manually for concordance. If this scan disagrees with the automated IG or if promyelocytes are noted, a manual differential will be performed. Immature Gran Absolute 0.06(H) 0.00 - 0.04 x10(3)/mc L [facility] Blood specimen (specimen) 01/16/2017 3:42 AM EDT 01/16/2017 4:07 AM EDT Narrative Resulting Agency Comment Spec In Lab Pineda Montague MD HEMATOLOGY ORDERABLE S [facility] [place] [address] * (ABNORMAL) Hemogram (01/16/2017 3:42 AM EDT) White Blood Cell 12.2(H) 4.0 - 9.5 x10(3)/[facility] Red Blood Cell 3.72(L) 4.58 - 5.54 x10(6)/ L [facility] Hemoglobin 11.9(L) 13.7 - 16.5 gm/dL [facility] Hematocrit 33.7(L) 40.5 - 48.5 % [facility] Mean Cell Volume 90.6 82.9 - 93.1 fL [facility] Mean Cell Hemoglobin 32.0 27.5 - 32.1 pg [facility] Mean Cell Hemoglobin Concentration 35.3 32.0 - 35.7 gm/dL [facility] Platelet 172 145 - 357 x10(3)/ L [facility] RDW Standard Deviation 42.7 36.0 - 45.0 [facility] RDW coefficient of variation 13.1 11.4 - 13.8 % [facility] Mean Platelet Volume 10.4 7.6 - 12.9 fL [facility] NRBC% auto 0.0 % [facility] NRBC Absolute 0.000 0.000 - 0.000 x10(3)/ L [facility] Blood specimen (specimen) 01/16/2017 3:42 AM EDT 01/16/2017 4:07 AM EDT Narrative Resulting Agency Comment Spec In Lab Pineda Montague MD HEMATOLOGY ORDERABLE S [facility] [place] [address] * (ABNORMAL) Basic Metabolic Panel (non-fasting) (01/16/2017 3:42 AM EDT) Glucose 134 65 - 199 mg/dL [facility] Comment:Diabetes: >=200 mg/d L plus symptoms Blood Urea Nitrogen 26(H) 10 - 20 mg/dL [facility] Creatinine 1.66(H) 0.80 - 1.50 mg/dL [facility] Comment: Please note that the pediatric reference intervals supplied above were not validated at [facility]. Results from pediatric patients should be interpreted in conjunction to the patient's age, height and muscle mass. Sodium 138 135 - 145 mmol/L [facility] Potassium 4.4 3.5 - 5.0 mmol/L [facility] Comment: Please note: ??Patients with WBC >100,000 may have falsely elevated Potassium levels. ??For accurate Potassium quantification in these patients send serum separator tube (gold top) for subsequent determinations. ??Contact the Clinical Chemistry Laboratory if there are any questions. Chloride 103 98 - 107 mmol/L [facility] Carbon Dioxide 22 22 - 31 mmol/L [facility] Anion Gap 13 5 - 15 mmol/L [facility] Calcium 8.4(L) 8.5 - 10.5 mg/dL [facility] Est Glomerular Filtration Rate 42(L) >=60 [facility] Comment: This [...] the following links into your internet browser. [email or web address] Blood specimen (specimen) 01/16/2017 3:42 AM EDT 01/16/2017 4:07 AM EDT Narrative Resulting Agency Comment Spec In Lab Pineda Montague MD CHEMISTRY ORDERABLES [facility] [place] [id number] * XR Pelvis (Generic) (01/15/2017 12:05 PM [...] MD IMG FLUORO ORDERABLE S [facility] [place], [place] documented in this encounter Visit Diagnoses [...] PM EDT 1,000 mLs 100 mL/hr multivitamin Gqbf-Fa-QE-Min (THERAPEUTIC-M) 27-0.4 mg tablet 1 tablet 1 [...] (Given - Provider: Nina Hudson RN) multivitamin Refd-Pz-GK-Min (THERAPEUTIC-M) 27-0.4 mg tablet 1 tablet 1 [...] patient unable to take PO, may give MD if ordered, Routine BUpivacaine-EPINEPHrine 0.25 %-1:200,000 injection [...] Recovery documented in this encounter Care Teams Primary Counselor Relationship Specialty Start Date End Date Duke Ramos MD [facility] [address] [place] [address] PCP - General Family Medicine 08/23/16 06/28/18 documented as of this encounter
--- OUTSIDE RECORDS SUMMARY | 2024-07-23 01:23 | XMS_ITS | Encounter Summary ---
[place] [address] Care Team Providers Care Dredgemaster Name Role Phone Duke Ramos MD Primary Care Provider [phone] Reason for Visit * Auth/Cert Specialty Diagnoses / Procedures Referred By Ugo maynard Referred To Contact Diagnoses Primary osteoarthritis of left hip left hip osteoarthritis Procedures PRO TOTAL HIP ARTHROPLASTY @TOTAL HIP ARTHROPLASTY, ANTERIOR APPROACH (WRVU 20.72) MODIFIER CORAIL FEMORAL STEM DEPUY MODIFIER PINNACLE ACETABULUM DEPUY Referral ID Status Reason Start Date Expiration Date Visits Re quested Visits Authorized [id number] 1 1 Encounter Details Date Type Department Care Team (Latest Contact Info) Description 01/15/2017 5:52 AM EDT - 01/17/2017 1:49 PM EDT Hospital Encounter 3 [place] [address] Pineda Montague MD Primary osteoarthritis of left hip Discharge Disposition: Shelter Facility Social History Tobacco Use Types Packs/Day [...] Ortez Jr. Patient Age: 66 y.o. Language: Icelandic Race: White Ethnicity: Not nor Admit date: 01/15/2017 Discharge date and time: 01/17/2017 Attending Physician: Pineda Montague MD Discharge Physician: Pineda Montague MD Follow-up Recommendations for Providers: See discharge instructions for additional details. Future Appointments Date Time Provider Department Center 02/13/2017 10:00 AM [facility] 02/13/2017 11:00 AM Pineda Montague MD [facility] [place] [facility] 02/13/2017 11:30 AM ORTHO CHANNEL INSTALLER [facility] Ortho [facility] Inpatient Provider Contact Information: Pineda Montague MD Orthopedics: [phone] After hours and weekends, call [facility] Adjuster, , and have the Orthopedic resident paged. [...] to: Rehab Patient will be discharged to: [facility] [address] [place] [address] Updated Allergies/ADRs: No Known Allergies Immunizations Given [...] mg Quantity: 26 capsule Refills: 0 multivitamin Civb-Sn-UZ-Min 27-0.4 mg Tab Commonly known as: THERAPEUTIC-M [...] bowel movement. You can also take an wipr-iyg-cmsoovc medication, Miralax if needed to combat constipation. [...] 1. You will have follow-up appointments at [facility] as indicated below in Future Appointment and Orders. 2. You will need to have x-rays prior to your follow-up appointment on 02/13/17. Please come to Radiology, desk 3T, 1 hour BEFORE that appointment for these x-rays. Future Appointments Date Time Provider Department Center 02/13/2017 10:00 AM [facility] DX ROOM 1 [facility] [place] [facility] 02/13/2017 11:00 AM Pineda Montague MD [facility] [place] [facility] 02/13/2017 11:30 AM ORTHO CHANNEL INSTALLER [facility] Ortho [place] [facility] If you have questions or concerns: Friday through Friday, 8 AM - 5 PM, please call Pineda Reeves MD's office at . If it is after 5 PM, the weekend, or holidays, please call and ask to speak with theOrthopedic resident on-call. Future Appointments and Orders Future Appointments Provider Department Dept Phone 02/13/2017 11:00 AM Pineda Montague MD Orthopaedics [phone] 02/13/2017 11:30 AM ORTHO CHANNEL INSTALLER Orthopaedics [phone] Primary Care Provider: Duke Ramos MD [phone] Discharge References/Attachments None documented in this encounter [...] bowel movement. You can also take an sdfe-lls-ipuhena medication, Miralax if needed to combat constipation. [...] 1. You will have follow-up appointments at [facility] as indicated below in Future Appointment and Orders. 2. You will need to have x-rays prior to your follow-up appointment on 02/13/17. Please come to Radiology, desk 3T, 1 hour BEFORE that appointment for these x-rays. Future Appointments Date Time Provider Department Center 02/13/2017 10:00 AM [facility] DX ROOM 1 [facility] [place] [facility] 02/13/2017 11:00 AM Pineda Montague MD [facility] Ortho 3C [place] [facility] 02/13/2017 11:30 AM ORTHO CHANNEL INSTALLER [facility] Ortho [place] [facility] If you have questions or concerns: [...] daily as needed (constipation). 01/17/2017 02/13/2017 multivitamin Mcmm-Vz-VR-Min (THERAPEUTIC-M) 27-0.4 mg Tablet Take 1 tablet [...] Report [facility]. * Radha Perez RN - 01/17/2017 11:09 AM EDT Patient Name: Shree Ortez Jr. : 1950 Patient has [facility]. No MD to MD report necessary Please call Nursing Report to [phone] , ask for burnishing machine operator. Info to accompany patient: Narcotic Prescriptions Copies of Medication Administration Records and IV sheets for past two weeks. Friend will transport pt via car around 12:30-1. [facility]: [place] [address] Plan: Animal Surgeon will be available to the patient and CRC for further assistance. Radha Perez RN Pager [phone] * Jody Patel MD - 01/17/2017 6:56 [...] Time Provider Department Center 02/13/2017 10:00 AM [facility] DX ROOM 1 [facility] 02/13/2017 11:00 AM Pineda Montague MD [facility] [place] [facility] 02/13/2017 11:30 AM ORTHO CHANNEL INSTALLER [facility] [place] [facility] * Montse Curran [...] Diamond Secondary Insurance: None Prescription Coverage: [place] [facility] Preferred Pharmacy: [place] [id number] Other: None ?? Primary Care Provider: Duke Ramos MD [phone] ?? Patient/Caregiver Goals of Treatment: He wants to be able to do woodworking. ?? Potential Needs for Transition of Care: Rehab/SNF: patient has spoken with ( Luciana) @ [facility] R facility in [place] re his [employer] insurance and they have told him they accept and will likely be able to offer bed when medicallyready for discharge ? Home Health: No ME: 2 FWW. Dialysis: No Community Resources: None Transportation: Friend- [facility]. Other: None ?? Anticipated Barriers to Discharge/Special Considerations: None ?? Plan: discussed discharge plan anticipate rehab stay Will ask RS to confirm with [facility]. A member of the [...] Time Provider Department Center 02/13/2017 10:00 AM [facility] DX ROOM 1 [facility] [place] [facility] 02/13/2017 11:00 AM Pineda Montague MD [facility] [place] [facility] 02/13/2017 11:30 AM ORTHO CHANNEL INSTALLER [facility] Ortho [place] [facility] Associated attestation - Pineda Montague MD - 01/16/2017 5:47 PM EDT Patient seen and examined on rounds. Agree with resident note. Pineda Montague M.D. [place] Department of Orthopaedics * Gricel Jaramillo MD [...] Anticipated Discharge Disposition: inpatient rehabilitation facility Pager: [phone] Patti Cedeno OT Occupational Therapy Rehabilitation Department [...] today???s session. Social History: Patient lives in [place], [place] in a 2 level home with [...] Anticipated Discharge Disposition: inpatient rehabilitation facility Pager: [phone] Urban Wright, PT 01/16/2017 Inpatient Physical Therapy Problem: Acute Rehab Services Goal & Intervention Plan Goal: Bed Mobility Goal Stand Alone Therapy Goal Outcome: Ongoing (Interventions Implemented as Appropriate) 01/16/17 1119 Bed Mobility Goal Bed Mobility Goal, Date Established 01/16/17 Bed Mobility Goal, Time to Achieve 2 wks Bed Mobility Goal, Activity Type all bed mobility activities Bed Mobility Goal, [place] Level independent Bed Mobility Goal, Assistive Device leg mercerizer machine operator Goal: Gait Training Goal Stand Alone Therapy Goal Outcome: Ongoing (Interventions Implemented as Appropriate) 01/16/17 1119 Gait Training Goal Gait Training Goal, Date Established 01/16/17 Gait Training Goal, Time to Achieve 2 wks Gait Training Goal, [place] Level conditional independence Gait Training Goal, Assist [...] standing static/dynamic activities with RWsupport PT Goal, [place] Level conditional independence Goal: Strength Goal Stand [...] Activity Type all transfers Transfer Train Goal, [place] Level conditional independence Transfer Training Goal, Assist [...] Note Patient Name: Shree Ortez Jr. : [id number] MR#: [id number] Date of surgery: 01/15/2017 ?? Preoperative diagnosis: Left hip osteoarthritis ?? Postoperative diagnosis: Left hip osteoarthritis ?? Procedure: Left total hip arthroplasty ?? Anesthesia: General ?? Surgeon: Pineda Montague MD ?? Residential Living Assistant: Jody Camejo MD ?? Estimated blood loss: 550 cc ?? Fluids: 600 cc ?? Urine output: Due to Void ?? Drains: None ?? Complications: None ?? Implants: 1. 12 Corail coxa vara femoral stem 2. 54 mm [place] 100 Gription acetabular shell 3. 36 x [...] services accepted. Informed patient that an inpatient residential care officer will be working to expedite the discharge process and to direct questions to the assigned residential care officer. ?? Reason for Hospitalization: Primary OA of [...] discussed the purpose and services provided by [facility]. I communicated that we will not know until after surgery what will be the best course of discharge for the patient based on medical necessity and that thisis why we plan for different courses of discharge. I informed the patient that they will be workingwith a residential care officer after surgery to facilitate the discharge plan. I encouraged the patient to call me with any questions or concerns prior to the surgery as well as when they discharge home. ? Health/Prescription Coverage: Primary Insurance: [facility] Secondary Insurance: None Prescription Coverage: [place] Preferred Pharmacy: [place] [address] Other: None ?? Primary Care Provider: Duke Ramos MD [phone] ?? Patient/Caregiver Goals of Treatment: He wants to be able to do woodworking. ?? Potential Needs for Transition of Care: Rehab/SNF: [facility] ?? Based on discussions with the multi-disciplinary healthcare team, the patient would benefit from - level of care at discharge. ? I have met with the patient/apprenticeship representative to discuss discharge planning needs. I have provided the [facility], Office of Care Management letter from the Office Associate pertaining to rehab referrals. I have also provided a letter describing our affiliations within the [facility] and educated them about their right to choose where referrals are placed. ?? I reviewed the different levels of rehab including SNF, swing, acute and LTAC with the patient/apprenticeship representative. ?? The patient/apprenticeship representative has been provided a list of facilities within their preferred geographic area. ?? I have requested that the patient/apprenticeship representative provide at least three choices for referral. ?? The patient/apprenticeship representative have requested referrals to: ?? 1. [facility] ?? 2. [facility] ?? 3. ?? Expected date of discharge: ?? Note routed to Animal Surgeon who will communicate referrals to facilities and provide any required information. ?? Home Health: No selection (He prefers to not have [facility] come to his workshop/home) OP PT: [facility] [place] DME: 2 FWW. Dialysis: No Community Resources: None Transportation: We discussed that since we cannot determine the exact day or time of surgery, his transportation must be readily available at time of discharge. He will be transported by [facility]. Other: None ?? Anticipated Barriers to Discharge/Special [...] of care planning. ?? Oly Alonso Pager: [phone] Chart reviewed and had a message from Oly that pt would like referrals made to [facility] and [facility] at d/c. Pt is still in the OR but will be coming to 3W post-op. I am unsure of how he will transport. * Op Note - Pineda Montague MD - 01/15/2017 7:41 AM EDT [facility] Operative Note Patient Name: Shree Ortez Jr. : [id number] MR#: [id number] Date of surgery: 01/15/2017 Preoperative diagnosis: Left hip osteoarthritis Postoperative diagnosis: Left hip osteoarthritis Procedure: Left total hip arthroplasty Anesthesia: General Surgeon: Pineda Montague MD Residential Living Assistant: Jody Camejo MD Estimated blood loss: 550 cc Fluids: 600 cc Urine output: Due to Void Drains: None Complications: None Implants: 1. 12 Corail coxa vara femoral stem 2. 54 mm [place] 100 Gription acetabular shell 3. 36 x [...] IMPLANTABLE DEVICES SCAN 01/18/2017 12:00 AM EDT SUPERVISOR TAN ROOM SCAN 01/18/2017 12:00 AM EDT HEMOGRAM Routine [...] SCAN EXT O RDR/RSLT * SCAN DOC: SUPERVISOR TAN ROOM (01/18/2017 12:00 AM EDT) Anatomical Region Laterality Modality Other Narrative 01/18/2017 12:00 AM EDT Ordered by an unspecified provider. Scanning Provider MEDIA MGR SCAN EXT O RDR/RSLT * (ABNORMAL) Differential, Automated (01/17/2017 4:37 AM EDT) Neutrophil % 80.6 % [facility] Neutrophil Absolute 8.94(H) 1.70 - 6.10 x10(3)/mc L [facility] Lymph % 11.0 % [facility] Lymphocytes Abs 1.2 0.9 - 3.2 x10(3)/mc L [facility] Monocyte % 7.9 % [facility] Monocyte Abs 0.9 0.3 - 0.9 x10(3)/mc L [facility] Eos % 0.0 % [facility] Eosinophils Abs 0.0 0.0 - 0.4 x10(3)/mc L [facility] Basophil % 0.0 % [facility] Baso Absolute 0.0 0.0 - 0.1 x10(3)/mc L [facility] Immature Gran % 0.50 % [facility] Comment: Immature granulocytes(IG's)percentage and absolute count will include metamyelocytes, myelocytes, and promyelocytes. Blood smears from CBCs yielding IG's will be scanned manually for concordance. If this scan disagrees with the automated IG or if promyelocytes are noted, a manual differential will be performed. Immature Gran Absolute 0.06(H) 0.00 - 0.04 x10(3)/[facility] Blood specimen (specimen) 01/17/2017 4:37 AM EDT 01/17/2017 5:01 AM EDT Narrative Resulting Agency Comment Spec In Lab Pineda Montague MD HEMATOLOGY ORDERABLE S [facility] [place] [address] * (ABNORMAL) Hemogram (01/17/2017 4:37 AM EDT) White Blood Cell 11.1(H) 4.0 - 9.5 x10(3)/[facility] Red Blood Cell 3.41(L) 4.58 - 5.54 x10(6)/ L [facility] Hemoglobin 10.6(L) 13.7 - 16.5 gm/dL [facility] Hematocrit 31.0(L) 40.5 - 48.5 % [facility] Mean Cell Volume 90.9 82.9 - 93.1 fL [facility] Mean Cell Hemoglobin 31.1 27.5 - 32.1 pg [facility] Mean Cell Hemoglobin Concentration 34.2 32.0 - 35.7 gm/dL [facility] Platelet 174 145 - 357 x10(3)/ L [facility] RDW Standard Deviation 43.2 36.0 - 45.0 fL [facility] RDW coefficient of variation 13.1 11.4 - 13.8 % [facility] Mean Platelet Volume 10.6 7.6 - 12.9 fL [facility] NRBC% auto 0.0 % [facility] NRBC Absolute 0.000 0.000 - 0.000 x10(3)/mc L [facility] Blood specimen (specimen) 01/17/2017 4:37 AM EDT 01/17/2017 5:01 AM EDT Narrative Resulting Agency Comment Spec In Lab Pineda Montague MD HEMATOLOGY ORDERABLE S [facility] [place] [address] * (ABNORMAL) Basic Metabolic Panel (non-fasting) (01/17/2017 4:37 AM EDT) Glucose 126 65 - 199 mg/dL [facility] Comment:Diabetes: >=200 mg/d L plus symptoms Blood Urea Nitrogen 33(H) 10 - 20 mg/dL [facility] Creatinine 1.74(H) 0.80 - 1.50 mg/dL [facility] Comment: Please note that the pediatric reference intervals supplied above were not validated at [facility]. Results from pediatric patients should be interpreted in conjunction to the patient's age, height and muscle mass. Sodium 144 135 - 145 mmol/L [facility] Potassium 4.7 3.5 - 5.0 mmol/L [facility] Comment: Please note: ??Patients with WBC >100,000 may have falsely elevated Potassium levels. ??For accurate Potassium quantification in these patients send serum separator tube (gold top) for subsequent determinations. ??Contact the Clinical Chemistry Laboratory if there are any questions. Chloride 107 98 - 107 mmol/L [facility] Carbon Dioxide 25 22 - 31 mmol/L [facility] Anion Gap 12 5 - 15 mmol/L [facility] Calcium 8.2(L) 8.5 - 10.5 mg/dL [facility] Est Glomerular Filtration Rate 39(L) >=60 [facility] Comment: This estimated GFR (eGFR) [...] the following links into your internet browser. [email or web address] Blood specimen (specimen) 01/17/2017 4:37 AM EDT 01/17/2017 5:01 AM EDT Narrative Resulting Agency Comment Spec In Lab Pineda Montague MD CHEMISTRY ORDERABLES [facility] [place] [address] * (ABNORMAL) Differential, Automated (01/16/2017 3:42 AM EDT) Neutrophil % 84.4 % [facility] Neutrophil Absolute 10.34(H) 1.70 - 6.10 x10(3)/mc L [facility] Lymph % 7.3 % [facility] Lymphocytes Abs 0.9 0.9 - 3.2 x10(3)/mc L [facility] Monocyte % 7.7 % [facility] Monocyte Abs 0.9 0.3 - 0.9 x10(3)/mc L [facility] Eos % 0.0 % [facility] Eosinophils Abs 0.0 0.0 - 0.4 x10(3)/mc L [facility] Basophil % 0.1 % [facility] Baso Absolute 0.0 0.0 - 0.1 x10(3)/mc L [facility] Immature Gran % 0.50 % [facility] Comment: Immature granulocytes(IG's)percentage and absolute count will include metamyelocytes, myelocytes, and promyelocytes. Blood smears from CBCs yielding IG's will be scanned manually for concordance. If this scan disagrees with the automated IG or if promyelocytes are noted, a manual differential will be performed. Immature Gran Absolute 0.06(H) 0.00 - 0.04 x10(3)/mc L [facility] Blood specimen (specimen) 01/16/2017 3:42 AM EDT 01/16/2017 4:07 AM EDT Narrative Resulting Agency Comment Spec In Lab Pineda Montague MD HEMATOLOGY ORDERABLE S [facility] [place] [address] * (ABNORMAL) Hemogram (01/16/2017 3:42 AM EDT) White Blood Cell 12.2(H) 4.0 - 9.5 x10(3)/mc L [facility] Red Blood Cell 3.72(L) 4.58 - 5.54 x10(6)/mc L [facility] Hemoglobin 11.9(L) 13.7 - 16.5 gm/dL [facility] Hematocrit 33.7(L) 40.5 - 48.5 % [facility] Mean Cell Volume 90.6 82.9 - 93.1 fL [facility] Mean Cell Hemoglobin 32.0 27.5 - 32.1 pg [facility] Mean Cell Hemoglobin Concentration 35.3 32.0 - 35.7 gm/dL [facility] Platelet 172 145 - 357 x10(3)/mc L [facility] RDW Standard Deviation 42.7 36.0 - 45.0 fL [facility] RDW coefficient of variation 13.1 11.4 - 13.8 % [facility] Mean Platelet Volume 10.4 7.6 - 12.9 fL [facility] NRBC% auto 0.0 % [facility] NRBC Absolute 0.000 0.000 - 0.000 x10(3)/mc L [facility] Blood specimen (specimen) 01/16/2017 3:42 AM EDT 01/16/2017 4:07 AM EDT Narrative Resulting Agency Comment Spec In Lab Pineda Montague MD HEMATOLOGY ORDERABLE S [facility] [place] [address] * (ABNORMAL) Basic Metabolic Panel (non-fasting) (01/16/2017 3:42 AM EDT) Glucose 134 65 - 199 mg/dL [facility] Comment:Diabetes: >=200 mg/d L plus symptoms Blood Urea Nitrogen 26(H) 10 - 20 mg/dL [facility] Creatinine 1.66(H) 0.80 - 1.50 mg/dL [facility] Comment: Please note that the pediatric reference intervals supplied above were not validated at [facility]. Results from pediatric patients should be interpreted in conjunction to the patient's age, height and muscle mass. Sodium 138 135 - 145 mmol/L [facility] Potassium 4.4 3.5 - 5.0 mmol/L [facility] Comment: Please note: ??Patients with WBC >100,000 may have falsely elevated Potassium levels. ??For accurate Potassium quantification in these patients send serum separator tube (gold top) for subsequent determinations. ??Contact the Clinical Chemistry Laboratory if there are any questions. Chloride 103 98 - 107 mmol/L [facility] Carbon Dioxide 22 22 - 31 mmol/L [facility] Anion Gap 13 5 - 15 mmol/L [facility] Calcium 8.4(L) 8.5 - 10.5 mg/dL [facility] Est Glomerular Filtration Rate 42(L) >=60 [facility] Comment: This estimated GFR (eGFR) [...] the following links into your internet browser. [email or web address] Blood specimen (specimen) 01/16/2017 3:42 AM EDT 01/16/2017 4:07 AM EDT Narrative Resulting Agency Comment Spec In Lab Pineda Montague MD CHEMISTRY ORDERABLES [facility] [place] [address] * XR Pelvis (Generic) (01/15/2017 12:05 PM [...] Pineda Montague MD IMG FLUORO ORDERABLE S [place], [place] documented in this encounter Visit Diagnoses [...] AM EDT 1,000 mLs 100 mL/hr multivitamin Kkks-Na-HB-Min (THERAPEUTIC-M) 27-0.4 mg tablet 1 tablet 1 [...] (Given - Provider: Nina Hudson RN) multivitamin Wtjr-Uv-QD-Min (THERAPEUTIC-M) 27-0.4 mg tablet 1 tablet 1 [...] patient unable to take PO, may give CO if ordered, Routine BUpivacaine-EPINEPHrine 0.25 %-1:200,000 injection [...] Recovery documented in this encounter Care Teams Dredgemaster Relationship Specialty Start Date End Date Duke Ramos MD [address] [place] [address] PCP - General Family Medicine 08/23/16 06/28/18 documented as of this encounter
--- OUTSIDE RECORDS SUMMARY | 2024-07-23 01:23 | XMS_ITS | Encounter Summary ---
Author Organization [facility] Address [facility] [place] [address] Care Team Providers Care Cook Restaurant Name Role Phone Duke Ramos MD Primary Care Provider [phone] Encounter Details Date Type Department Care Team (Late st Contact Info) Description 01/06/2017 Notes Only Care Management [facility] [place] [address] Oly Presley Social History Tobacco Use Types [...] Shree would like to go to a half-way facility postoperatively. Should he be medically able [...] Jesus that I would look into a half-way facilities that except his insurance. However I reiterated that referrals and acceptance are made postoperatively when the facility has the opportunity to review the notes on him postoperatively. I made increase to: [facility] I requested that facilities review and call [...] on filedocumented in this encounter Care Teams Cook Restaurant Relationship Specialty Start Date End Date Duke Ramos MD [address] [place] [address] PCP - General Family Medicine 08/23/16 06/28/18 documented as of this encounter
--- OUTSIDE RECORDS SUMMARY | 2024-07-23 01:23 | XMS_ITS | Encounter Summary ---
Author Organization [facility] [place] [address] Care Team Providers Care Gis Developer Name Role Phone Duke Ramos MD Primary Care Provider [phone] Reason for Visit * Reason Comments Left Hip Pain left ANT JOHN 01/15/17 Encounter Details Date Type Department Care Team (Latest Contact Info) Description 01/02/2017 1:50 PM EDT Office [place] [phone] Pineda Montague MD Primary osteoarthritis of left [...] rhythm, unchanged from previous tracings. Questionnaire Response [facility] Surgical Preop Visit 01/02/2017 PROMIS-10 General Health [...] this moment Moderate Health Literacy Somewhat Orthopeadics [facility] Response 01/02/2017 HOOS JR Scores 46.65 Spine [facility] Response 01/02/2017 HOOS JR Scores 46.65 Radiographic [...] refuse a blood transfusion. Opioid PDMP 01/02/2017 [place] Query Date 12/30/2016 Shree Ortez Jr. [...] SNF Top 3 nursing choice facilities: [facility] or [facility] preference: No selection [...] thigh documented in this encounter Care Teams Gis Developer Relationship Specialty Start Date End Date Duke Ramos MD [address] [place] [address] PCP - General Family Medicine 08/23/16 06/28/18 documented as of this encounter
--- OUTSIDE RECORDS SUMMARY | 2024-07-23 01:23 | XMS_ITS | Encounter Summary ---
Author Organization [facility] Address [facility] [address] [place] [place] [address] Care Team Providers Care Polysom Tech Name Role Phone Duke Ramos MD Primary Care Provider [phone] Encounter Details Date Type Department Care Team (Late st Contact Info) Description 02/27/2017 Orders Only Urology at [facility] [place] [address] Toni Akbar MD [facility] [place] [address] [place] [address] Social History Tobacco Use Types Packs/Day Years [...] on filedocumented in this encounter Care Teams Polysom Tech Relationship Specialty Start Date End Date Duke Ramos MD [address] [place] [address] PCP - General Family Medicine 08/23/16 06/28/18 documented as of this encounter
--- OUTSIDE RECORDS SUMMARY | 2024-07-23 01:23 | XMS_ITS | Encounter Summary ---
Author Organization [facility] [place] [address] Care Team Providers Care Dairy Powder Mixer Operator Name Role Phone Duke Ramos MD Primary Care Provider [phone] Encounter Details Date Type Department Care Team (Late st Contact Info) Description 08/22/2016 Orders Only Urology at [facility] [place] [address] Jarocho Jenkins MD [address] [place] [address] Social History Tobacco Use Types Packs/Day Years [...] on filedocumented in this encounter Care Teams Dairy Powder Mixer Operator Relationship Specialty Start Date End Date Duke Ramos MD [address] [place] [address] PCP - General Family Medicine 08/23/16 06/28/18 documented as of this encounter
--- OUTSIDE RECORDS SUMMARY | 2024-07-23 01:23 | XMS_ITS | Encounter Summary ---
Author Organization [facility] Address [facility] [address] [address] Care Team Providers Care Control Panel Builder Name Role Phone Duke Ramos MD Primary Care Provider [phone] Encounter Details Date Type Department Care Team (Latest Contact Info) Description 10/22/2016 12:17 PM EST - 10/22/2016 12:56 PM [facility] Hospital Encounter XRay at [address] [place] [address] Jarocho Jenkins MD [address] [place] [address] History of kidney cancer Discharge Disposition: Home [...] kidney documented in this encounter Care Teams Control Panel Builder Relationship Specialty Start Date End Date Duke Ramos MD [address] [place] [address] PCP - General Family Medicine 08/23/16 06/28/18 documented as of this encounter
--- OUTSIDE RECORDS SUMMARY | 2024-07-23 01:23 | XMS_ITS | Encounter Summary ---
Author Organization [facility] [place] [address] Care Team Providers Care Pastry Assistant Name Role Phone Duke Ramos MD Primary Care Provider [phone] Reason for Visit * Auth/Cert Specialty Diagnoses / Procedures Referred By Ugo maynard Referred To Contact Diagnoses Primary osteoarthritis of left hip left hip osteoarthritis Procedures PRO TOTAL HIP ARTHROPLASTY @TOTAL HIP ARTHROPLASTY, ANTERIOR APPROACH (WRVU 20.72) MODIFIER CORAIL FEMORAL STEM DEPUY MODIFIER PINNACLE ACETABULUM DEPUY Referral ID Status Reason Start Date Expiration Date Visits Re quested Visits Authorized [id number] 1 1 Encounter Details Date Type Department Care Team (Late st Contact Info) Description 01/15/2017 7:38 AM EDT Anesthesia Event [place] [phone] Lisa Avila MD [facility] [address] [place] [address] Jimi Alberto MD [facility] [address] [place] [address] Anesthesia Record Procedure Summary Procedure Name Responsible [...] Procedure Start 0936 Break/Relief In DAVID PATEL, DRAWING IN HAND 0950 Break/Relief Out 1037 Procedure Stop 1048 [...] Avila MD - 01/16/2017 7:24 AM EDT [facility] Department of Anesthesiology Post-procedure Note Patient: Shree Ortez Jr. Procedure Summary Date Anesthesia Start Anesthesia Stop Room / Location 01/15/17 0738 105[facility] / [facility] MAIN OR Procedure Diagnosis Surgeon Responsible Provider [...] All Anesthesia Providers: Anesthesiologist: Lisa Avila MD DRAWING IN HAND: Mahsa Buckley CRNA Last (1hr) Vitals: BP Temp Pulse Resp SpO2 Patient Location: PACU/[facility] Level of Consciousness: Awake and Alert Pain [...] well. GA with ETT to be performed. Resident/DRAWING IN HAND: MAHSA BUCKLEY Second Resident/DRAWING IN HAND: Fellow: Attending Physician: LISA AVILA ~~~~~~~~~~~~~~~~~~~~~~~~~~~~~~~~~~~~~~~~~~~~~~~~~~~~~~~~~~~~ * [...] DIAGNOSTIC performed by Nina Almaguer MD at [facility] ENDOSCOPY ??? PRO LAP, RADICAL NEPHRECTOMY 06/07/2014 @LAPAROSCOPY, RADICAL NEPHRECTOMY performed by Jarocho Jenkins MD at [facility] MAIN OR ??? PRO REPAIR ING HERNIA, 5+Y/O, REDUCIBL Left 07/07/2015 REPAIR INGUINAL HERNIA, 5 YR OR OLDER, REDUCIBLE performed by Flash Rivas MD at [facility] MAIN OR ??? PRO UPPER GI ENDOSCOPY, BIOPSY N/A 09/26/2014 EGD WITH BIOPSY performed by Nina Almaguer MD at [facility] ENDOSCOPY ??? TOTAL NEPHRECTOMY Left 06/07/14 [...] risks discussed with patient. Plan discussed with DRAWING IN HAND. PAT Staff Note documented in this encounter [...] well. GA with ETT to be performed. Resident/DRAWING IN HAND: MAHSA BUCKLEY Second Resident/DRAWING IN HAND: Fellow: Attending Physician: LISA AVILA ~~~~~~~~~~~~~~~~~~~~~~~~~~~~~~~~~~~~~~~~~~~~~~~~~~~~~~~~~~~~ documented [...] mg documented in this encounter Care Teams Pastry Assistant Relationship Specialty Start Date End Date Duke Ramos MD [address] [place] [address] PCP - General Family Medicine 08/23/16 06/28/18 documented as of this encounter
--- OUTSIDE RECORDS SUMMARY | 2024-07-23 01:23 | XMS_ITS | Encounter Summary ---
Author Organization [facility] Address [facility] [address] [place] [address] Care Team Providers Care Parimutuel Ticket Seller Name Role Phone Duke Ramos MD Primary Care Provider [phone] Encounter Details Date Type Department Care Team (Latest Contact Info) Description 12/23/2016 10:40 AM EDT Clinical Support Same Day at [facility] [place] [place] [phone] Primary osteoarthritis of left hip Social History [...] (Bezet) 399 ms MUSE SYSTEM Calculated P Bryant 24 degrees MUSE SYSTEM Calculated R Bryant 55 degrees MUSE SYSTEM Calculated T Bryant 59 degrees MUSE SYSTEM INTERPRETATION Normal sinus rhythm Normal ECG No previous ECGs available Confirmed by MD Korina, Alyx ([id number]) on 12/23/2016 6:06:17 PM MUSE SYSTEM 12/23/2016 10:5 5 AM EDT 12/23/2016 6:06 PM EDT Pineda Montague MD ECG ORDERABLES MUSE SYSTEM documented in this encounter Visit Diagnoses Diagnosis Primary osteoarthritis of left hip Primary localized osteoarthrosis, pelvic region and thigh documented in this encounter Care Teams Parimutuel Ticket Seller Relationship Specialty Start Date End Date Duke Ramos MD [address] [place] [address] PCP - General Family Medicine 08/23/16 06/28/18 documented as of this encounter
--- OUTSIDE RECORDS SUMMARY | 2024-07-23 01:23 | XMS_ITS | Encounter Summary ---
Author [facility] [place] [address] Care Team Providers Care Health Professional Name Role Phone Duke Ramos MD Primary Care Provider [phone] Encounter Details Date Type Department Care Team (Latest Contact Info) Description 12/23/2016 10:40 AM EDT Laboratory [place] [phone] Primary osteoarthritis of left hip Social History [...] hip TYPE AND SCREEN, SDP (FUTURE SURGERY, [facility] SAME DAY PROGRAM ONLY) Routine 12/23/2016 11:00 [...] 11:00 AM EDT) ABORH Type Recheck Completed [facility] Blood specimen (specimen) 12/23/2016 11:00 AM EDT 12/23/2016 11:15 AM EDT Narrative Resulting Agency Comment Spec In Lab Pineda Montague MD BLOOD BANK LAB ORDER WILLIAM Performing Organization Address City/State/[facility] Co de Phone Number [facility] [place] [address] * Differential, Automated (12/23/2016 11:00 AM EDT) Neutrophil % 63.6 % [facility] Neutrophil Absolute 3.31 1.70 - 6.10 x10(3)/[facility] LABORATORY Lymph % 28.5 % [facility] Lymphocytes Abs 1.5 0.9 - 3.2 x10(3)/[facility]ORATORY Monocyte % 6.5 % [facility] Monocyte Abs 0.3 0.3 - 0.9 x10(3)/[facility]OR[facility] Eos % 0.8 % [facility] Eosinophils Abs 0.0 0.0 - 0.4 x10(3)/[facility] Basophil % 0.4 % [facility] Baso Absolute 0.0 0.0 - 0.1 x10(3)/[facility]ORATORY Immature Gran % 0.20 % [facility] Comment: Immature granulocytes(IG's)percentage and absolute count will include metamyelocytes, myelocytes, and promyelocytes. Blood smears from CBCs yielding IG's will be scanned manually for concordance. If this scan disagrees with the automated IG or if promyelocytes are noted, a manual differential will be performed. Immature Gran Absolute 0.01 0.00 - 0.04 x10(3)/[facility] Blood specimen (specimen) 12/23/2016 11:00 AM EDT 12/23/2016 11:20 AM EDT Narrative Resulting Agency Comment Spec In Lab Pineda Montague MD HEMATOLOGY ORDERABLE S Performing Organization Address City/State/[facility] Co de Phone Number [facility] [place] [address] * (ABNORMAL) Hemogram (12/23/2016 11:00 AM EDT) White Blood Cell 5.2 4.0 - 9.5 x10(3)/ L [facility] Red Blood Cell 4.49(L) 4.58 - 5.54 x10(6)/ L [facility] Hemoglobin 13.9 13.7 - 16.5 gm/dL [facility] Hematocrit 40.6 40.5 - 48.5 % [facility] Mean Cell Volume 90.4 82.9 - 93.1 fL [facility] Mean Cell Hemoglobin 31.0 27.5 - 32.1 pg [facility] Mean Cell Hemoglobin Concentration 34.2 32.0 - 35.7 gm/dL [facility] Platelet 199 145 - 357 x10(3)/ L [facility] RDW Standard Deviation 41.6 36.0 - 45.0 fL [facility] RDW coefficient of variation 12.8 11.4 - 13.8 % [facility] Mean Platelet Volume 10.3 7.6 - 12.9 fL [facility] NRBC% auto 0.0 % [facility] NRBC Absolute 0.000 0.000 - 0.000 x10(3)/mc L [facility] Blood specimen (specimen) 12/23/2016 11:00 AM EDT 12/23/2016 11:20 AM EDT Narrative Resulting Agency Comment Spec In Lab Pineda Montague MD HEMATOLOGY ORDERABLE S [facility] [place] [address] * Antibody screen (12/23/2016 11:00 AM EDT) Ab Screen Interp Negative [facility] Expires at [id number] on: 01/18/2017 [facility] Blood specimen (specimen) 12/23/2016 11:00 AM EDT 12/23/2016 11:15 AM EDT Narrative Resulting Agency Comment Spec In Lab Pineda Montague MD BLOOD BANK LAB ORDER WILLIAM [facility] [place] [address] * ABO/Rh Typing (12/23/2016 11:00 AM EDT) ABORH Type B Pos [facility] Blood specimen (specimen) 12/23/2016 11:00 AM EDT 12/23/2016 11:15 AM EDT Narrative Resulting Agency Comment Spec In Lab Pineda Montague MD BLOOD BANK LAB ORDER WILLIAM [facility] [place] [address] * APTT (12/23/2016 11:00 AM EDT) Partial Thromboplastin Time 26 25 - 35 sec [facility] Comment: The recommended therapeutic range for full dose, unfractionated heparin at [facility] is 80 ? 114 seconds. The use of the anti-Xa (heparin) level rather than the PTT is recommended for monitoring anticoagulation intensity in critically ill patients receiving unfractionated heparin by continuous IV infusion. Blood specimen (specimen) 12/23/2016 11:00 AM EDT 12/23/2016 11:20 AM EDT Narrative Resulting Agency Comment Spec In Lab Pineda Montague MD HEMATOLOGY ORDERABLE S Performing Organization Address [facility] Co de Phone Number [facility] [place] [address] * Prothrombin Time (12/23/2016 11:00 AM EDT) Prothrombin Time 13.4 12.0 - 15.0 sec [facility] Comment: An INR <2.0 indicates [...] International Normalization Ratio 1.0 0.9 - 1.1 [facility] Blood specimen (specimen) 12/23/2016 11:00 AM EDT 12/23/2016 11:20 AM EDT Narrative Resulting Agency Comment Spec In Lab Pineda Montague MD HEMATOLOGY ORDERABLE S Performing Organization Address [facility] Co de Phone Number [facility] [place] [address] * (ABNORMAL) Basic Metabolic Panel (non-fasting) (12/23/2016 11:00 AM EDT) Glucose 99 65 - 199 mg/dL [facility] Comment:Diabetes: >=200 mg/d L plus symptoms Blood Urea Nitrogen 21(H) 10 - 20 mg/dL [facility] Creatinine 1.52(H) 0.80 - 1.50 mg/dL [facility] Comment: Please note that the pediatric reference intervals supplied above were not validated at [facility]. Results from pediatric patients should be interpreted in conjunction to the patient's age, height and muscle mass. Sodium 142 135 - 145 mmol/L [facility] Potassium 4.5 3.5 - 5.0 mmol/L [facility] Comment: Please note: ??Patients with WBC >100,000 may have falsely elevated Potassium levels. ??For accurate Potassium quantification in these patients send serum separator tube (gold top) for subsequent determinations. ??Contact the Clinical Chemistry Laboratory if there are any questions. Chloride 104 98 - 107 mmol/L [facility] Carbon Dioxide 24 22 - 31 mmol/L [facility] Anion Gap 14 5 - 15 mmol/L [facility] Calcium 9.0 8.5 - 10.5 mg/dL [facility] Est Glomerular Filtration Rate 46(L) >=60 [facility] Comment: This estimated GFR (eGFR) [...] the following links into your internet browser. [email or web address] [email or web address]/DHMCnkf Blood specimen (specimen) 12/23/2016 11:00 AM EDT 12/23/2016 11:20 AM EDT Narrative Resulting Agency Comment Spec In Lab Pineda Montague MD CHEMISTRY ORDERABLES [facility] [place] [address] documented in this encounter Visit Diagnoses Diagnosis Primary osteoarthritis of left hip Primary localized osteoarthrosis, pelvic region and thigh documented in this encounter Care Teams Health Professional Relationship Specialty Start Date End Date Duke Ramos MD [address] [place] [address] PCP - General Family Medicine 08/23/16 06/28/18 documented as of this encounter
--- OUTSIDE RECORDS SUMMARY | 2024-07-23 01:23 | XMS_ITS | Encounter Summary ---
Author Organization [facility] [place] [address] Care Team Providers Care Black Leather Buffer Name Role Phone Duke Ramos MD Primary Care Provider [phone] Reason for Referral * Physical Therapy (Routine) - Closed Specialty Diagnoses / Procedures Referred By Ugo maynard Referred To Contact Physical Therapy Diagnoses Status post total replacement of left hip Pineda Montague MD [facility] [address] [place] [address] Referral ID Status Reason Start Date Expiration Date V isits Requested Visits Authorized [id number] Closed Evaluate and Treat 02/21/2017 08/20/2017 20 20 Reason for Visit * Reason Onset Date Comments Physical Therapy 02/19/2017 Encounter Details Date Type Department Care Team (Late st Contact Info) Description 02/19/2017 [place] [address] Pineda Montague MD Physical Therapy Social History [...] - 02/19/2017 4:14 PM EDT Chana from [facility] calling for a PT referral and op note for the patient to begin PT. Requesting referral and note be faxed to [phone]. Call back to [phone] with questions. documented in this encounter Plan [...] hip documented in this encounter Care Teams Black Leather Buffer Relationship Specialty Start Date End Date Duke Ramos MD [address] [place] [address] PCP - General Family Medicine 08/23/16 06/28/18 documented as of this encounter
--- OUTSIDE RECORDS SUMMARY | 2024-07-23 01:23 | XMS_ITS | Encounter Summary ---
Author Organization [facility] [place] [address] Care Team Providers Care Chemical Dependency Therapist Name Role Phone Duke Ramos MD Primary Care Provider +1 [phone] Reason for Visit * Reason Comments Left Hip Pain discuss JOHN Encounter Details Date Type Department Care Team (Latest Contact Info) Description 10/31/2016 10:20 AM EST Office Visit Orthopaedics at [facility] [place] [address] Pineda Montague MD Primary osteoarthritis of left [...] seen the patient and reviewed Salvador Boo [facility] history/physical and I agree with the details [...] JR Scores 46.65 JOHN Grade 3 [facility] Response 10/31/2016 HOOS JR Scores 46.65 Spine [...] Thromboplastin Time 26 25 - [address] [facility] Comment: The recommended therapeutic range for full dose, unfractionated heparin at [facility] is 80 ? 114 seconds. The use of the anti-Xa (heparin) level rather than the PTT is recommended for monitoring anticoagulation intensity in critically ill patients receiving unfractionated heparin by continuous IV infusion. Blood specimen (specimen) 12/23/2016 11:00 AM EDT 12/23/2016 11:20 AM EDT Narrative Resulting Agency Comment Spec In Lab Pineda Montague MD HEMATOLOGY ORDERABLE S [facility] [place] [address] * Prothrombin Time (12/23/2016 11:00 AM EDT) Prothrombin Time 13.4 12.0 - 15.[address] [facility] Comment: An INR <2.0 indicates [...] International Normalization Ratio 1.0 0.9 - [address].1 [facility] Blood specimen (specimen) 12/23/2016 11:00 AM EDT 12/23/2016 11:20 AM EDT Narrative Resulting Agency Comment Spec In Lab Pineda Montague MD HEMATOLOGY ORDERABLE S [facility] [place] [address] * (ABNORMAL) Basic Metabolic Panel (non-fasting) (12/23/2016 11:00 AM EDT) Glucose 99 65 - 199 mg/dL [facility] Comment:Diabetes: >=200 mg/d L plus symptoms Blood Urea Nitrogen 21(H) 10 - 20 mg/dL [facility] Creatinine 1.52(H) 0.80 - 1.50 mg/dL [facility] Comment: Please note that the pediatric reference intervals supplied above were not validated at [facility]. Results from pediatric patients should be interpreted in conjunction to the patient's age, height and muscle mass. Sodium 142 135 - 145 mmol/L [facility] Potassium 4.5 3.5 - 5.0 mmol/L [facility] Comment: Please note: ??Patients with WBC >100,000 may have falsely elevated Potassium levels. ??For accurate Potassium quantification in these patients send serum separator tube (gold top) for subsequent determinations. ??Contact the Clinical Chemistry Laboratory if there are any questions. Chloride 104 98 - 107 mmol/L [facility] Carbon Dioxide 24 22 - 31 mmol/L [facility] Anion Gap 14 5 - 15 mmol/L [facility] Calcium 9.0 8.5 - 10.5 mg/dL [facility] Est Glomerular Filtration Rate 46(L) >=60 [facility] Comment: This estimated [...] the following links into your internet browser. [email or web address] Blood specimen (specimen) 12/23/2016 11:00 AM EDT 12/23/2016 11:20 AM EDT Narrative Resulting Agency Comment Spec In Lab Pineda Montague MD CHEMISTRY ORDERABLES Performing Organization Address [facility] Co de Phone Number [facility] [place] [address] * EKG 12 Lead (12/23/2016 10:55 AM EDT) Ventricular rate 71 BPM MUSE SYSTEM Atrial Rate 71 BPM MUSE SYSTEM P-R Interval 160 ms MUSE SYSTEM QRS Duration 96 ms MUSE SYSTEM Q-T Interval 368 ms MUSE SYSTEM QTC Calculated (Bezet) 399 ms MUSE SYSTEM Calculated P Crosby 24 degrees MUSE SYSTEM Calculated R Crosby 55 degrees MUSE SYSTEM Calculated T Crosby 59 degrees MUSE SYSTEM INTERPRETATION Normal sinus rhythm Normal ECG No previous ECGs available Confirmed by MD Korina, Alyx ([id number]) on 12/23/2016 6:06:17 PM MUSE SYSTEM 12/23/2016 10:5 5 AM EDT 12/23/2016 6:06 PM EDT Pineda Montague MD ECG ORDERABLES Performing Organization Address City/[facility] Co de Phone Number MUSE SYSTEM documented in this encounter Visit Diagnoses Diagnosis Primary osteoarthritis of left hip Primary localized osteoarthrosis, pelvic region and thigh documented in this encounter Care Teams Chemical Dependency Therapist Relationship Specialty Start Date End Date Duke Ramos MD [address] [place] [address] PCP - General Family Medicine 08/23/16 06/28/18 documented as of this encounter
--- OUTSIDE RECORDS SUMMARY | 2024-07-23 01:24 | XMS_ITS | Encounter Summary ---
Author Organization [facility] Address [facility] [place] [address] Care Team Providers Care Resistor Coater Name Role Phone Ivanna Hughes APRN Primary Care Provider +1- [phone] Reason for Visit * Reason Comments Inguinal Hernia Encounter Details Date Type Department Care Team (Late st Contact Info) Description 05/15/2015 2:45 PM EDT Follow-Up General Surgery at [facility] [place] [address] Flash Rivas MD [facility] [place] [address] Left inguinal hernia Discharge Disposition: Home Social [...] proceed. We will schedule this here at [facility] in the near future, likely mid-June at [...] recurrent) documented in this encounter Care Teams Resistor Coater Relationship Specialty Start Date End Date Ivanna Hughes APRN PCP - General 05/19/11 09/10/15 documented as of this encounter
--- OUTSIDE RECORDS SUMMARY | 2024-07-23 01:24 | XMS_ITS | Encounter Summary ---
Author Organization [facility] [place] [address] Care Team Providers Care Egg Grader Name Role Phone Ivanna Hughes APRN Primary Care Provider +1- [phone] Encounter Details Date Type Department Care Team (Late st Contact Info) Description 03/03/2015 [place] [phone] Jarocho Jenkins MD [address] [place] [address] Social History Tobacco Use Types Packs/Day Years [...] on filedocumented in this encounter Care Teams Egg Grader Relationship Specialty Start Date End Date Ivanna Hughes APRN PCP - General 05/19/11 09/10/15 documented as of this encounter
--- OUTSIDE RECORDS SUMMARY | 2024-07-23 01:24 | XMS_ITS | Encounter Summary ---
Author Organization [facility] [place] [address] Care Team Providers Care Roof Panel Hanger Name Role Phone Unavailable Primary Care Provider Unavailabl e Encounter Details Date Type Department Care Team (Late st Contact Info) Description 09/12/2015 Orders Only Urology at [facility] [place] [phone] Jarocho Jenkins MD [address] [place] [address] History of kidney cancer Social History Tobacco [...]
--- OUTSIDE RECORDS SUMMARY | 2024-07-23 01:24 | XMS_ITS | Encounter Summary ---
Author Organization [facility] Address [facility] [place] [address] Care Team Providers Care Reference Assistant Name Role Phone Ivanna Hughes APRN Primary Care Provider +1- [phone] Encounter Details Date Type Department Care Team (Late st Contact Info) Description 06/13/2014 Telephone Urology at [facility] [place] [address] Brenda Manning MD [facility] [place] [address] Social History Tobacco Use Types Packs/Day Years [...] on filedocumented in this encounter Care Teams Reference Assistant Relationship Specialty Start Date End Date Ivanna Hughes APRN PCP - General 05/19/11 09/10/15 documented as of this encounter
--- OUTSIDE RECORDS SUMMARY | 2024-07-23 01:24 | XMS_ITS | Encounter Summary ---
Author Organization [facility] [place] [address] Care Team Providers Care Blueprint Cutter Name Role Phone Unavailable Primary Care Provider Unavailabl e Encounter Details Date Type Department Care Team (Latest Contact Info) Description 09/11/2015 12:16 PM EST - 09/11/2015 11:59 PM EST Hospital Encounter CT Scan at [facility] [place] [address] Jarocho Jenkins MD [address] [place] [address] History of kidney cancer Discharge Disposition: Home [...]
--- OUTSIDE RECORDS SUMMARY | 2024-07-23 01:24 | XMS_ITS | Encounter Summary ---
Author Organization [facility] Address [facility] [place] [address] Care Team Providers Care Gis Software Engineer Name Role Phone Ivanna Hughes APRN Primary Care Provider +1- [phone] Reason for Visit * Reason Comments Follow Up Surgery Encounter Details Date Type Department Care Team (Late st Contact Info) Description 08/07/2015 1:00 PM EST Office Visit General Surgery at [facility] [place] [address] Flash Rivas MD [facility] [place] [address] Postop check Social History Tobacco Use Types [...] surgery documented in this encounter Care Teams Gis Software Engineer Relationship Specialty Start Date End Date Ivanna Hughes APRN PCP - General 05/19/11 09/10/15 documented as of this encounter
--- OUTSIDE RECORDS SUMMARY | 2024-07-23 01:24 | XMS_ITS | Encounter Summary ---
Author Organization [facility] Address [facility] [address] [place] [address] Care Team Providers Care Cigar Bander Hand Name Role Phone Ivanna Hughes APRN Primary Care Provider +1- [phone] Reason for Visit * Auth/Cert - Closed Specialty Diagnoses / Procedures Referred By Uog t Referred To Contact Diagnoses LEFT INGUINAL HERNIA Procedures REPAIR INGUINAL HERNIA, 5 YR OR OLDER, REDUCIBLE Referral ID Status Reason Start Date Expiration Date Visits Re quested Visits Authorized [id number] Closed 1 1 Encounter Details Date Type Department Care Team (Late st Contact Info) Description 07/07/2015 12:56 PM EDT - 07/07/2015 2:54 PM EDT Surgery [place] [address] Flash Livingston MD [facility] [place] [address] REPAIR INGUINAL HERNIA, 5 YR OR OLDER, [...] 101.3 F. The number for questions is [phone] before 5 PM weekdays and [phone] after 5 PM and weekends. Pain Medication: [...] will be mailed to you. Please call [phone] (clinic number for appointments) to confirm date [...] Dasilva MD - 07/07/2015 5:05 PM EDT [facility] Operative Note Patient Name: Shree Oretz Jr. : [id number] MR#: [id number] Case Date: 07/07/2015 Surgeon: Surgeon(s) and Role: [...] Note Patient Name: Shree Ortez Jr. : [id number] MR#: [id number] Case Date: 07/07/2015 Surgeon: Surgeon(s) and Role: [...] rendered or confirmed the diagnosis(es). Accession Number: [id number] ?Location: [facility]; [place]; A . ?Surgical Pathology DIAGNOSIS Left inguinal [...] marie-yellow. (R6) ??p 07/11/2015 9:12 AM EDT [facility] SOFT TISSUE MASS / Unknown 07/07/2015 4:04 PM EDT 07/07/2015 4:04 PM EDT Flash Livingston MD PATHOLOGY/CYTOLOGY O TRISTIAN NALLELYHEBER UPTON [facility] [place] [address] * Specimen to Pathology (surgical or derm) (07/07/2015 4:04 PM EDT) AP Specimen 07/07/2015 4:04 PM EDT 07/07/2015 4:04 PM EDT Narrative HENRY UPTON - 07/07/2015 4:04 PM EDT Specimen requisition ordered. ??Separate Pathology report to follow Flash Livingston MD PATHOLOGY/CYTOLOGY O TRISTIAN Performing Organization Address City/[facility]/ZIP Co de Phone Number HENRY UPT[facility] * [...] Recovery documented in this encounter Care Teams Cigar Bander Hand Relationship Specialty Start Date End Date Ivanna Hughes, STEAM TABLE WORKER PCP - General 05/19/11 09/10/15 documented as of this encounter
--- OUTSIDE RECORDS SUMMARY | 2024-07-23 01:24 | XMS_ITS | Encounter Summary ---
Author Organization Replaced By [facility] [place] [address] Care Team Providers Care Entry Level Project Coordinator Name Role Phone Ivanna Hughes APRN Primary Care Provider +1- [phone] Reason for Visit * Auth/Cert - Closed Specialty Diagnoses / Procedures Referred By Ugo t Referred To Contact Diagnoses LEFT INGUINAL HERNIA Procedures REPAIR INGUINAL HERNIA, 5 YR OR OLDER, REDUCIBLE Referral ID Status Reason Start Date Expiration Date Visits Re quested Visits Authorized [id number] Closed 1 1 Encounter Details Date Type Department Care Team (Late st Contact Info) Description 07/07/2015 3:20 PM EDT Anesthesia Event [place] [address] Roxane Wright MD [facility] [place] [address] Ilya Whitaker MD [facility] [place] [address] Anesthesia Record Procedure Summary Procedure Name Responsible [...] 1356; metacarpal vein left (top of hand); [id number] catheter system; 20 gauge; bebe; intradermal injection; [...] NEPHRECTOMY performed by Jarocho Jenkins MD at [facility] MAIN OR ??? Pro colonoscopy, diagnostic N/A 09/26/2014 COLONOSCOPY, DIAGNOSTIC performed by Nina Almaguer MD at [facility] ENDOSCOPY ??? Pro upper gi endoscopy, biopsy N/A 09/26/2014 EGD WITH BIOPSY performed by Nina Almaguer MD at [facility] ENDOSCOPY ??? Appendectomy 1972 ??? Total nephrectomy [...] chin Cardiovascular Assessment: Pulmonary Assessment: Dental Assessment: [facility] Assessment: Anesthesia Plan: ASA 2 general, with [...] discussed with patient. Plan discussed with resident. [facility]. Assessment: documented in this encounter Plan of [...] mg documented in this encounter Care Teams Entry Level Project Coordinator Relationship Specialty Start Date End Date Ivanna Hughes, FIRE PREVENTION SPECIALIST PCP - General 05/19/11 09/10/15 documented as of this encounter
--- OUTSIDE RECORDS SUMMARY | 2024-07-23 01:24 | XMS_ITS | Encounter Summary ---
Author Organization [facility] Address [facility] [place] [address] Care Team Providers Care Rn Physician Office Name Role Phone Unavailable Primary Care Provider Unavailabl e Encounter Details Date Type Department Care Team (Latest Contact Info) Description 07/26/2016 - 07/26/2016 12:14 AM EDT Hospital Encounter Radiology Library at [facility] [place] [address] Vance Jose MD [facility] [place] [address] Pain Discharge Disposition: Home Social History Tobacco [...] MD IMLowell FILM LIBRARY ORD ERABLES [place], [place] documented in this encounter Visit Diagnoses Diagnosis Pain Generalized pain documented in this encounter
--- OUTSIDE RECORDS SUMMARY | 2024-07-23 01:24 | XMS_ITS | Encounter Summary ---
Author Organization [facility] [place] [address] Care Team Providers Care Home Care Nurse Name Role Phone Unavailable Primary Care Provider Unavailabl e Encounter Details Date Type Department Care Team (Late st Contact Info) Description 09/12/2015 Telephone Urology at [facility] [place] [address] Jarocho Jenkins MD [address] [place] [address] Social History Tobacco Use Types Packs/Day Years [...]
--- OUTSIDE RECORDS SUMMARY | 2024-07-23 01:24 | XMS_ITS | Encounter Summary ---
Author Organization [facility] [place] [address] Care Team Providers Care Group Sales Representative Name Role Phone Ivanna Hughes APRN Primary Care Provider +1- [phone] Encounter Details Date Type Department Care Team (Late st Contact Info) Description 01/17/2015 [place] [phone] Jarocho Jenkins MD [address] [place] [address] Social History Tobacco Use Types Packs/Day Years [...] on filedocumented in this encounter Care Teams Group Sales Representative Relationship Specialty Start Date End Date Ivanna Hughes APRN PCP - General 05/19/11 09/10/15 documented as of this encounter
--- OUTSIDE RECORDS SUMMARY | 2024-07-23 01:24 | XMS_ITS | Encounter Summary ---
Author Organization [facility] [place] [address] Care Team Providers Care Test Man Name Role Phone Ivanna Hughes APRN Primary Care Provider +1- [phone] Encounter Details Date Type Department Care Team (Late st Contact Info) Description 06/16/2014 2:40 PM EDT Office [place] [phone] Jarocho Paz MD [address] [place] [address] History of kidney cancer (Primary Dx) Discharge [...] the following links into your internet browser. [email or web address] Blood specimen (specimen) 12/15/2014 10:00 AM EDT [...] ? Ordered By: JAROCHO PAZ ? MR#: [id number] ?LOC: ??5B ? /Sex: ??1950 (64 years), [...] kidney documented in this encounter Care Teams Test Man Relationship Specialty Start Date End Date Ivanna Hughes APRN PCP - General 05/19/11 09/10/15 documented as of this encounter
--- OUTSIDE RECORDS SUMMARY | 2024-07-23 01:24 | XMS_ITS | Encounter Summary ---
Author Organization [facility] Address [facility] [place] [address] Care Team Providers Care Manager Mba Name Role Phone Ivanna Hughes APRN Primary Care Provider +1- [phone] Reason for Visit * Auth/Cert - Closed Specialty Diagnoses / Procedures Referred By Ugo t Referred To Contact Diagnoses LEFT INGUINAL HERNIA Procedures REPAIR INGUINAL HERNIA, 5 YR OR OLDER, REDUCIBLE Referral ID Status Reason Start Date Expiration Date Visits Re quested Visits Authorized [id number] Closed 1 1 Encounter Details Date Type Department Care Team (Latest Contact Info) Description 07/07/2015 10:26 AM EDT - 07/07/2015 7:26 PM EDT Hospital Encounter [place] [address] Flash Livingston MD [facility] [place] [address] Discharge Disposition: Home Social History Tobacco Use [...] 101.3 F. The number for questions is [phone] before 5 PM weekdays and [phone] after 5 PM and weekends. Pain Medication: [...] will be mailed to you. Please call [phone] (clinic number for appointments) to confirm date [...] Dasilva MD - 07/07/2015 5:05 PM EDT [facility] Operative Note Patient Name: Shree Ortez Jr. : [id number] MR#: [id number] Case Date: 07/07/2015 Surgeon: Surgeon(s) and Role: [...] Note Patient Name: Shree Ortez Jr. : [id number] MR#: [id number] Case Date: 07/07/2015 Surgeon: Surgeon(s) and Role: [...] rendered or confirmed the diagnosis(es). Accession Number: [id number] ?Location: [facility]; [facility]; A . ?Surgical Pathology [...] marie-yellow. (R6) ??p 07/11/2015 9:12 AM EDT [facility] SOFT TISSUE MASS / Unknown 07/07/2015 4:04 PM EDT 07/07/2015 4:04 PM EDT Flash Livingston MD PATHOLOGY/CYTOLOGY O TRISTIAN NALLELYHEBER CORTESJOSEMYNOR [facility] [address] * Specimen to Pathology (surgical or derm) (07/07/2015 4:04 PM EDT) AP Specimen 07/07/2015 4:04 PM EDT 07/07/2015 4:04 PM EDT Narrative HENRY UPTON - 07/07/2015 4:04 PM EDT Specimen requisition ordered. ??Separate Pathology report to follow Flash Livingston MD PATHOLOGY/CYTOLOGY O TRISTIAN Performing Organization Address City/[facility]/ZIP Co de Phone Number HENRY UPTON [...] Recovery documented in this encounter Care Teams Manager Mba Relationship Specialty Start Date End Date Ivanna Hughes APRN PCP - General 05/19/11 09/10/15 documented as of this encounter
--- OUTSIDE RECORDS SUMMARY | 2024-07-23 01:24 | XMS_ITS | Encounter Summary ---
Author Organization [facility] [place] [address] Care Team Providers Care Ball Ender Name Role Phone Ivanna Hughes APRN Primary Care Provider +1- [phone] Encounter Details Date Type Department Care Team (Late st Contact Info) Description 06/20/2014 Orders Only Urology at [facility] [place] [phone] Jarocho Jenkins MD [address] [place] [address] Renal mass, left (Primary Dx) Social History [...] be done within the week 06/20-06/24 to [facility] per . documented in this encounter Plan of Treatment Scheduled Procedures Name Priority Associated Diagnoses Date/Ti ma EGD, UPPER GI ENDOSCOPY (WRV U 2.09) Esophageal dysphagia Encounter for colorectal cancer screening COLONOSCOPY, DIAGNOSTIC (WRV U 3.26) Esophageal dysphagia Encounter for colorectal cancer screening documented as of this encounter Visit Diagnoses Diagnosis Renal mass, left- Primary Unspecified disorder of kidney and ureter documented in this encounter Care Teams Ball Ender Relationship Specialty Start Date End Date Ivanna Hughes APRN PCP - General 05/19/11 09/10/15 documented as of this encounter
--- OUTSIDE RECORDS SUMMARY | 2024-07-23 01:24 | XMS_ITS | Encounter Summary ---
Author Organization [facility] [place] [address] Care Team Providers Care Cotton Program Technician Name Role Phone Duke Ramos MD Primary Care Provider +1 [phone] Encounter Details Date Type Department Care Team (Late st Contact Info) Description 07/15/2016 Telephone Urology at [facility] [place] [address] Jarocho Jenkins MD [address] [place] [address] Social History Tobacco Use Types Packs/Day Years [...] Miscellaneous Notes * Telephone Encounter - Jasmina Botaeng - 07/15/2016 11:47 AM EDT Pt called [...] on filedocumented in this encounter Care Teams Cotton Program Technician Relationship Specialty Start Date End Date Duke Ramos MD [address] [place] [address] PCP - General Family Medicine 08/23/16 06/28/18 documented as of this encounter
--- OUTSIDE RECORDS SUMMARY | 2024-07-23 01:24 | XMS_ITS | Encounter Summary ---
Author Organization [facility] [place] [address] Care Team Providers Care Nurse Orthopedic Name Role Phone Ivanna Hughes APRN Primary Care Provider +1- [phone] Encounter Details Date Type Department Care Team (Late st Contact Info) Description 09/26/2014 3:00 PM EST - 09/26/2014 4:00 PM EST Surgery [place] [address] Margarita Almaguer MD [facility] [place] [address] COLONOSCOPY, DIAGNOSTIC (WRVU 3.26) Social History Tobacco [...] you need to be checked. [facility] [phone] 8a-5p Same Day Endo [phone] 7a-8p Otherwise contact [phone] and ask to speak to the diamond wheel molder nutritional assistant Follow up care is a huff part [...] JRAlisa : 1950 Age: 64 y.o. Address: [address] [place] [phone] (home) Mobile: No relevant phone numbers on [...] NEPHRECTOMY performed by Jarocho Jenkins MD at [facility] MAIN OR Medications: Prior to Admission medications [...] Almaguer MD - 09/26/2014 4:23 PM EST [facility] [place] Patient Name: Shree Ortez Jr. : [id number] MR#: [id number] Case Date: 09/26/2014 Surgeon: Surgeon(s) and Role: [...] MD PATHOLOGY/CYTOLOGY O RDELEAZAR Performing Organization Address [facility] Co de Phone Number [facility] * Specimen to Pathology (surgical or derm) (09/26/2014 4:13 PM EST) AP Specimen 09/26/2014 4:13 PM EST 09/26/2014 4:13 PM EST Narrative [facility] - 09/26/2014 4:13 PM EST Specimen requisition ordered. ??Separate Pathology report to follow Margarita Almaguer MD PATHOLOGY/CYTOLOGY O TRISTIAN Performing Organization Address [facility] Co de Phone Number [facility] * Specimen to Pathology (surgical or derm) (09/26/2014 4:13 PM EST) AP Specimen 09/26/2014 4:13 PM EST 09/26/2014 4:13 PM EST Narrative [facility] - 09/26/2014 4:13 PM EST Specimen requisition ordered. ??Separate Pathology report to follow Margarita Almaguer MD PATHOLOGY/CYTOLOGY O TRISTIAN Performing Organization Address [facility] Co de Phone Number [facility] * Surgical Pathology Report (09/26/2014 4:12 PM EST) Final Diagnosis ? [facility] ? Provider: ?? MARGARITA ALMAGUER ?Pt. Name: ?? BALJINDER GARCÍA, SHREE Aparicio ? Acc #: ?[id number] ?Pt. ? Col Date: ?? 09/26/2014 ?/Sex: [...] ? ---Clinical Information--- ? Specimen Submitted: ? [facility] ? Provider: ?? MARGARITA ALMAGUER ?Pt. Name: ?? BALJINDER GARCÍA, SHREE Aparicio ? Acc #: ?[id number] ?Pt. ? Col Date: ?? 09/26/2014 ?/Sex: ?1950,(64 years),Male ? Rec Date: ?? 09/26/2014 ?LOC: ?4T ? SURGICAL PATHOLOGY ? A - Ascending polyp, diminutive sessile, cold snared ? B - Transverse polyp, diminutive, cold snared ? C - Gastric polyp, biopsied ? Clinical History: ? Polyp ? Clinical Diagnosis: ? Same 09/28/2014 4:23 PM EST [facility] GI Biopsy 09/26/2014 4:12 PM EST 09/26/2014 4:12 PM EST GI Biopsy 09/26/2014 4:12 PM EST 09/26/2014 4:12 PM EST GI Biopsy 09/26/2014 4:12 PM EST 09/26/2014 4:12 PM EST Margarita Almaguer MD PATHOLOGY/CYTOLOGY O RDERABLES Performing Organization Address [facility]/State/[facility] Co de Phone Number [facility] [place] [address] * UPPER GI ENDOSCOPY (09/26/2014 3:12 PM EST) UPPER GI ENDOSCOPY [facility] Endoscopy Patient Name: Shree Ortez ? Procedure Date: 09/26/2014 3:12 PM ? Date of : 1950 ? Age: 64 ? Order #: [id number] ? Procedure: ? Upper GI endoscopy Indications: [...] * COLONOSCOPY (09/26/2014 3:12 PM EST) COLONOSCOPY [facility] Endoscopy Patient Name: Shree Ortez ? Procedure Date: 09/26/2014 3:12 PM ? Date of : 1950 ? Age: 64 ? Order #: [id number] ? Procedure: ? Colonoscopy Indications: ? Screening [...] RN) documented in this encounter Care Teams Nurse Orthopedic Relationship Specialty Start Date End Date Ivanna Hughes APRN PCP - General 05/19/11 09/10/15 documented as of this encounter
--- OUTSIDE RECORDS SUMMARY | 2024-07-23 01:24 | XMS_ITS | Encounter Summary ---
Author Organization [facility] Address [facility] [place] [place] [place] [address] Care Team Providers Care Research And Development Technician Name Role Phone Ivanna Hughes APRN Primary Care Provider +1- [phone] Encounter Details Date Type Department Care Team (Late st Contact Info) Description 12/16/2014 8:00 PM EDT Office [place] [phone] Jimi Ward MD [facility] DR [place] [address] Difficulty in swallowing Social History Tobacco Use [...] Male, 64 y.o., 1950 PCP: Ivanna Hughes CLAY MINE CUTTING MACHINE OPERATOR: YELITZA RAMOS STUDY DATE: 12/16/14 PROVIDER: Jim[place] ([id number]) INDICATION Dysphagia. METHODS Stationary esophageal manometry was performed with the ManoScan 360 (Anyone Home)in a supervised setting after verbal consent and [...] been ruled out. Jimi Ward, PhD, MD focusing machine operator Section of Gastroenterology and Hepatology [facility] [place] [address] V: [phone] F: [phone] ALON/elodia CC/EC: CLAY MINE CUTTING MACHINE OPERATOR - fax copy 12/27/14 documented in this [...] unspecified documented in this encounter Care Teams Research And Development Technician Relationship Specialty Start Date End Date Ivanna Hughes APRN PCP - General 05/19/11 09/10/15 documented as of this encounter
--- OUTSIDE RECORDS SUMMARY | 2024-07-23 01:24 | XMS_ITS | Encounter Summary ---
Author Organization [facility] Address [facility] [address] [address] Care Team Providers Care Farm Service Adviser Name Role Phone Ivanna Hughes APRN Primary Care Provider +1- [phone] Encounter Details Date Type Department Care Team (Latest Contact Info) Description 12/15/2014 9:42 AM EDT - 12/15/2014 10:09 AM EDT Hospital En[place]Ray [place] [address] [place] [address] History of kidney cancer Social History Tobacco [...] kidney documented in this encounter Care Teams Farm Service Adviser Relationship Specialty Start Date End Date Ivanna Hughes, OFFICE SWEEPER PCP - General 05/19/11 09/10/15 documented as of this encounter
--- OUTSIDE RECORDS SUMMARY | 2024-07-23 01:24 | XMS_ITS | Encounter Summary ---
Author Organization [place] [address] Care Team Providers Care Patient Care Specialist Name Role Phone Ivanna Hughes APRN Primary Care Provider +1- [phone] Encounter Details Date Type Department Care Team (Late st Contact Info) Description 12/21/2014 [place] [phone] Jarocho Jenkins MD [address] [place] [address] Social History Tobacco Use Types Packs/Day Years [...] on filedocumented in this encounter Care Teams Patient Care Specialist Relationship Specialty Start Date End Date Ivanna Hughes APRN PCP - General 05/19/11 09/10/15 documented as of this encounter
--- OUTSIDE RECORDS SUMMARY | 2024-07-23 01:24 | XMS_ITS | Encounter Summary ---
Author Organization [facility] [place] [address] Care Team Providers Care Aquaculture Farmer Name Role Phone Ivanna Hughes APRN Primary Care Provider +1- [phone] Encounter Details Date Type Department Care Team (Latest Contact Info) Description 12/16/2014 2:00 PM EDT Procedure [place] [address] CLINIC, Lelo Modi, RN Dysphagia Discharge Disposition: [...] unspecified documented in this encounter Care Teams Aquaculture Farmer Relationship Specialty Start Date End Date Ivanna Hughes APRN PCP - General 05/19/11 09/10/15 documented as of this encounter
--- OUTSIDE RECORDS SUMMARY | 2024-07-23 01:24 | XMS_ITS | Encounter Summary ---
Author Organization [facility] Address [facility] [place] [place] [place] [address] Care Team Providers Care Epic Willow Specialist Name Role Phone Ivanna Hughes APRN Primary Care Provider +1- [phone] Encounter Details Date Type Department Care Team (Late st Contact Info) Description 06/23/2014 Notes Only Urology at [facility] [place] [address] Jarocho Jenkins MD [address] [place] [address] Social History Tobacco Use Types Packs/Day Years [...] 9:20 AM EDT Ena, physical therapist, from [facility] called with an update [...] can be discharged from physical therapy. Called nEa and verbally gave discharge order via phone. documented in this encounter Plan of Treatment Scheduled Procedures Name Priority Associated Diagnoses Date/Ti me EGD, UPPER GI ENDOSCOPY (WRV U 2.09) Esophageal dysphagia Encounter for colorectal cancer screening COLONOSCOPY, DIAGNOSTIC (WRV U 3.26) Esophageal dysphagia Encounter for colorectal cancer screening documented as of this encounter Visit Diagnoses Not on filedocumented in this encounter Care Teams Epic Willow Specialist Relationship Specialty Start Date End Date Ivanna Hughes APRN PCP - General 05/19/11 09/10/15 documented as of this encounter
--- OUTSIDE RECORDS SUMMARY | 2024-07-23 01:24 | XMS_ITS | Encounter Summary ---
[facility] [place] [address] Care Team Providers Care Job Training Supervisor Name Role Phone Ivanna Barkley APRN Primary Care Provider +1- [phone] Encounter Details Date Type Department Care Team (Latest Contact Info) Description 06/07/2014 5:45 AM EDT - 06/10/2014 2:43 PM EDT Hospital Encounter [address] [place] [phone] Susan Jenkins MD [address] [place] [address] S/p nephrectomy Discharge Disposition: Home with VNA [...] longer draining The number for questions is [phone] before 5 PM weekdays and [phone] after 5 PM and weekends. Activity level: [...] will be mailed to you. Please call [phone] (clinic number for appointments) to confirm date [...] 06/10/2014 1:16 PM EDT Patient Name: Shree Ortze Jr. Patient Age: 64 y.o. Birthdate: 1950 Admit date: 06/07/2014 Attending Physician: Susan Jenkins MD [id number]: Patient states, no questions about discharge summary, HLIV removed by CERTIFIED FIRE INVESTIGATOR, report faxed to [facility], patient discharged to sister's house passing flatus, [...] the agency as his sister lives in [facility] . He will have a friend transport him by private car to His sisters. The address is c/o Minal Maldonado, [address] [place] [address], [place] [phone]. RN to review instructions, medications activity and [...] for Functional mobility Josefa Dexter PT Pager: [phone] Physical Therapy Rehabilitation Department * Patti Paris RN - 06/09/2014 1:52 PM EDT 1230 PT in to work w/ pt. PT reports to RN pt nauseous. 4 mg IV zofran administered. Pt reports pain not too bad at 4/10. Will continue to monitor. 1330 CERTIFIED FIRE INVESTIGATOR Vita reports pt dry heaving. RN in [...] be discharged today. Josefa Dexter PT Pager [phone] * Susan Jenkins MD - 06/08/2014 12:05 [...] NEPHRECTOMY performed by Susan Jenkins MD at [facility] MAIN OR Social History: Patient lives alone, [...] instructed in the use of sock aid, railroad passenger agent, long handled bathsponge forADLs. ?? Patient demonstrated modified independence in donning socks, pants, boots, slippers using assistive devices. ?? Encouraged patient to use sock aid and railroad passenger agent for lower body self care as he [...] timed interventions: 10 minutes self care Pager: [phone] KAYE GARCIA OT 06/10/2014 Occupational Therapy Rehabilitation Department * Discharge Summary - Nafisa Barksdale PA - 06/10/2014 12:39 PM EDT Discharge Summary Patient Name: Shree Ortez Jr. Patient Age: 64 y.o. Language: Cook Islander Race: White Ethnicity: Not nor Admit date: [...] Hospital Course: Patient was admitted electively to [facility] via the same day surgery program and [...] longer draining The number for questions is [phone] before 5 PM weekdays and [phone] after 5 PM and weekends. Activity level: [...] will be mailed to you. Please call [phone] (clinic number for appointments) to confirm date and time of your appointment if you do not receive it. General Instructions None Future Appointments and Orders Future Orders Please Complete By Expires Referral to Home Health - at DISCHARGE [[id number] CPT(R)] Process Instructions: Scheduling Instructions: Comments: DOCUMENTATION FOR VNA SERVICES (INCLUDING THOSE PATIENTS WITH MEDICARE COVERAGE REQUIRING HOME VNA SERVICES AND/OR HOSPICE SERVICES) PATIENT'S LOCATION: Shree Aparicio Baljinder Cohen C/o sisterMinal [address] [place], [place] [phone] Home: [address] [place] [phone] There is no home phone number on file. Cell: Telephone Information: Loss Prevention Investigator's Name: Patient, Minal andersen [phone] In discussion with the attending physician, it is certified that this patient is under their care and that they, or a Nurse Practitioner,Clinical Nurse specialist or Physician Shingle Catcher who is working directly with them, had [...] program if appropriate HOME HEALTH CARE AGENCY: [facility]. PHONE: [phone] FAX: [phone] Start of care: Day after discharge (06-11-14) [...] [address] / [place] [address] All A agencies which cover the area of patient's residence have been reviewed, either verbally castro writing, and patient/family have chosen the home health care agency noted Questions: Responses: Agency name and contact information [facility] Patient location post discharge Sisters home What services are requested Physical Therapy Start date 06/11/2014 Responsible MD post discharge contact info PCP/Susan Jenkins Md [facility] Follow-Up: No future appointments. Primary Care Provider: IVANNA BARKLEY APRN [phone] Follow-up Recommendations for Providers: Please see discharge [...] was managed by the Urology Team at [facility]. If you have any questions or concerns, please feel free to contact us. Provider Contact Information: Urology Clinic: [facility] (after business hours): * Plan of Care [...] 0 minutes JOSEFA DEXTER PT 06/09/2014 Pager: [phone] Physical Therapy Rehabilitation Department * Care Management [...] made. A copy will be sent to [facility] per his request. Patient to be disch arged later today. CANDIE CASTRO Surgery Building Services Engineer Pager [phone] * Plan of Care - Patti Paris [...] Office of Care Management (OCM) / Clinical Psychiatric Attendant (CRC) Initial Assessment Has the appropriate physician [...] No ?? Has the physician, patient and/or field support representative or other multidisciplinary telesales team leader requested a care management consult? No (If patient does not need further evaluation based on screening then .[facility]) Evaluation Introduced and reviewed the CRC role with patient and/or field support representative. The following information has been gathered from this communication. Reason for Hospitalization/Current Status: RENAL MASS Procedure(s): @LAPAROSCOPY, RADICAL NEPHRECTOMY - left Permission given to speak with sister regarding status. Family/Social support: Single 64 year old residing in [place], [place] alone and is retired. Helists his sister Che and brother, Armond as contacts. He is independent in activities.He may go stay with her sister in [place], [place] in elderly housing and WC bound per RN report. Baseline Functional/Cognitive/Mobility Status: A&O x3, independent in mobility and self-care. (is it feasible for patient to return to previous environment with the same and/or additional resources and supports?) Yes, ? VNA Current Home/Community Services/Eqiupment: None PCP/Health Care Maintenance: IVANNA BARKLEY, SQUEEZER OPERATOR [phone] Advanced Directives: None on file and will provide a booklet for review and completion Insurance Coverage: [facility] Medication Coverage: Yes with co-pays Pharmacy: [facility] [place] Financial Concerns: Not currently as is reitred and has health insurance FURNITURE MECHANIC Referral: No no needs identified at this time . Transportation at Discharge: States his brother will transport by private vehicle. Anticipated Continued Care Needs: Deciding on VNA services at his sisters home. F/u with surgery Plan (If plan is unknown delete the following section and utilize smart phrase [.cmplan] when information becomes available) Based on discussion with patient and/or field support representative, physician and other multidisciplinary team members the following information has been gathered: Patient and/or field support representative short term goal: Tolerate diet, pain controlled with oral medications, bowel function returned, mobility Patient and/or field support representative custodial goal: Return home at prior level of function Patient and/or representatives preferences: Stay with his sister Anticipated discharge resources/services: To be determined.Family, ? VNA Anticipated social supports: Brother,sister, friends Anticipated cost of services: Costs related to CAUL DRESSER, DME, SNF/SWING/ACUTE/LTAC level or care, medications and/or transportation have been provided to the patient and/or field support representative. .. Implementation (If plan is unknown delete the following section and utilize smart phrase [.cmimplementation] when information becomes available) Based on discussion with patient and/or field support representative, physician, and other multidisciplinary teammembers the following information has been gathered/actions completed. For those being transferred/discharged to another facility, VNA, infusion company, DME, etc. Patient deciding on VNA or not Will offer choices in the [facility] area if desired. If Managed Medicare, need to make reasonable attempts, based on the information from the insurer, to limit those agencies/facilities in network. No The patient and/or field support representative agrees with the reccommended plan. Deciding on VNA ?? Does patient, field support representative and/or anticipated caregivers (whether at [...] services. Signature: Nicki Lao RN CRC Pager: [phone] * OR Attestation - Susan Jenkins MD - 06/07/2014 12:20 PM EDT Attestation: Case Date: 06/07/2014 I was present and I participated during the entire procedure (does not need to include opening and closing). SUSAN JENKINS MD 06/07/2014 * Op Note - Lata Agustin MD - 06/07/2014 11:42 AM EDT [facility] Operative Note Patient Name: Shree Ortez Jr. : [id number] MR#: [id number] Case Date: 06/07/2014 Surgeon: Surgeon(s) and Role: [...] incision. The fascia was closed with interrupted fczral-la-fbfrv 0 vicryl sutures. The skin incisions were closed with 4-0 monocryl suture. The patient was woken and bro ught to the PACU in stable condition. He tolerated the procedure well. * Brief Op Note - Lata Agustin MD - 06/07/2014 11:29 AM EDT Brief Operative Note Patient Name: Shree Ortez Jr. : [id number] MR#: [id number] Case Date: 06/07/2014 Surgeon: Surgeon(s) and Role: [...] intervals supplied above were not validated at [facility]. Results from pediatric patients should be interpreted [...] the following links into your internet browser. [email or web address] Blood specimen (specimen) 06/09/2014 5:58 AM EDT [...] intervals supplied above were not validated at [facility]. Results from pediatric patients should be interpreted [...] the following links into your internet browser. [email or web address] Blood specimen (specimen) 06/08/2014 4:24 AM EDT 06/08/2014 4:47 AM EDT Narrative Resulting Agency Comment Spec In Lab Susan Jenkins MD CHEMISTRY ORDERABLES [facility] * Surgical Pathology Report (06/07/2014 10:53 AM EDT) Final Diagnosis ? [facility] ? Provider: ?? SUSAN JENKINS ?Pt. Name: ?? BALJINDER GARCÍA, SHREE Aparicio ? Acc #: ?[id number] ?Pt. ? Col Date: ?? 06/07/2014 ? [...] Slides reviewed, microscopic description not recorded. ? [facility] ? Provider: ?? JACKSON, SUSAN Dale ?Pt. Name: ?? BALJINDER GARCÍA, SHREE Aparicio ? Acc #: ?[id number] ?Pt. ? Col Date: ?? 06/07/2014 ? /Sex: ?1950,(64 years),Male ? Rec Date: ?? 06/07/2014 ? LOC: ?4WST ? SURGICAL PATHOLOGY ? Whole slide scan: ? [id number] A6-1 ? S [id number] A8-1 ? ---Gross Description--- ? A - [...] capsule; (9) tumor and adjacent parenchyma; (10) field support representative upper pole ? parenchyma.; (11) hilar nodes. (R11) ??shb ? [facility] ? Provider: ?? SUSAN JENKINS ?Pt. Name: ?? BALJINDER GARCÍA, SHREE Aparicio ? Acc #: ?[id number] ?Pt. ? Col Date: ?? 06/07/2014 ? /Sex: ?1950,(64 years),Male ? Rec Date: ?? 06/07/2014 ? LOC: ?4WST ? SURGICAL PATHOLOGY ? ---Clinical Information--- ? Specimen Submitted: ? A - Left kidney ? Clinical History: ? Renal mass ? Clinical Diagnosis: ? Same 06/10/2014 8:47 AM EDT [facility] SPECIMEN FROM KIDNEY / Unknown 06/07/2014 10:53 AM EDT 06/07/2014 10:53 AM EDT Susan Jenkins MD PATHOLOGY/CYTOLOGY O RDERABRIGID Performing Organization Address City/State/[facility] [place] Phone Number [facility] [place] [address] * Specimen to Pathology (surgical or derm) [...] Routine documented in this encounter Care Teams Job Training Supervisor Relationship Specialty Start Date End Date Ivanna Barkley APRN PCP - General 05/19/11 09/10/15 documented as of this encounter
--- OUTSIDE RECORDS SUMMARY | 2024-07-23 01:24 | XMS_ITS | Encounter Summary ---
[place] [address] Care Team Providers Care Sludge Control Operator Name Role Phone Unavailable Primary Care Provider Unavailabl e Reason for Referral * Diagnostic Test (Routine) - Closed Specialty Diagnoses / Procedures Referred By Ugo t Referred To Contact Radiology Diagnoses History of kidney cancer Procedures CT Abdomen With/Wo Contrast Jarocho Jenkins MD [address] [place] [address] [facility] [place] [address] Referral ID Status Reason Start Date Expiration Date V isits Requested Visits Authorized [id number] Closed Specialty Service Requested 03/10/2016 03/10/2017 1 1 Encounter Details Date Type Department Care Team (Late st Contact Info) Description 09/12/2015 Tele[place] [address] Jarocho Jenkins MD [address] [place] [address] [phone] Social History Tobacco Use Types Packs/Day Years [...]
--- OUTSIDE RECORDS SUMMARY | 2024-07-23 01:24 | XMS_ITS | Encounter Summary ---
[place] [address] Care Team Providers Care Speech And Drama Teacher Name Role Phone Unavailable Primary Care Provider Unavailabl e Reason for Referral * Diagnostic Test (Routine) - Closed Specialty Diagnoses / Procedures Referred By Contlesli t Referred To Contact Radiology Diagnoses History of kidney cancer Procedures CT Abdomen wwo Contrast Jarocho Jenkins MD [address] [address] [facility] [place] [address] Referral ID Status Reason Start Date Expiration Date V isits Requested Visits Authorized [id number] Closed Specialty Service Requested 07/15/2016 07/15/2017 1 1 Encounter Details Date Type Department Care Team (Late st Contact Info) Description 07/15/2016 Orders [place] [address] Jarocho Jenkins MD [address] [place] [address] History of kidney cancer Social History [...] disease. Stable appearanceright kidney. Jarocho Jenkins MD [facility] CT ORDERABLES * XR Chest PA & [...] interval osseous findings are seen. Procedure Note Beevrly De Guzman MD - 10/22/2016 EXAMINATION: XR CHEST PA AND LATERAL (GENERIC) CLINICAL HISTORY: surveillance rcc TECHNIQUE: PA and lateral views of the chest. COMPARISON: 12/15/2014. FINDINGS: The lungs appear clear. The cardiomediastinal silhouette isunchanged. The kalpana, pulmonary vessels, and pleura are within normal limits. Nointerval osseous findings are seen. IMPRESSION No pulmonary metastases identified. Jarocho Jenkins MD [facility] DX ORDERABLES * (ABNORMAL) Comprehensive metabolic panel (non-fasting) (10/22/2016 12:14 PM EST) Glucose 128 65 - 199 mg/dL [facility] Comment:Diabetes: >=200 mg/d L plus symptoms Blood Urea Nitrogen 25(H) 10 - 20 mg/dL [facility] Creatinine 1.72(H) 0.80 - 1.50 mg/dL [facility] Comment: Please note that the pediatric reference intervals supplied above were not validated at [facility]. Results from pediatric patients should be interpreted in conjunction to the patient's age, height and muscle mass. Sodium 139 135 - 145 mmol/L [facility] Potassium 4.8 3.5 - 5.0 mmol/L [facility] Comment: Please note: ??Patients with WBC >100,000 may have falsely elevated Potassium levels. ??For accurate Potassium quantification in these patients send serum separator tube (gold top) for subsequent determinations. ??Contact the Clinical Chemistry Laboratory if there are any questions. Chloride 103 98 - 107 mmol/L [facility] Carbon Dioxide 24 22 - 31 mmol/L [facility] Anion Gap 12 5 - 15 mmol/L [facility] Calcium 9.0 8.5 - 10.5 mg/dL [facility] Protein, Total 7.0 6.1 - 8.0 gm/dL [facility] Albumin 4.1 3.2 - 5.2 gm/dL [facility] Aspartate Aminotransferase 30 0 - 39 unit/L [facility] Alanine Aminotransferase 47 0 - 55 unit/L [facility] Alkaline Phosphatase 121(H) 40 - 120 unit/L [facility] Bilirubin, Total 0.3 0.2 - 1.3 mg/dL [facility] Bilirubin, Direct 0.1 0.0 - 0.3 mg/dL [facility] Est Glomerular Filtration Rate 40(L) >=60 [facility] Comment: This estimated [...] the following links into your internet browser. [email or web address] Blood specimen (specimen) 10/22/2016 12:14 PM EST 10/22/2016 12:19 PM EST Narrative Resulting Agency Comment Spec In Lab Jarocho Jenkins MD CHEMISTRY ORDERABLES Performing Organization Address City/State/[facility] [place] [address] documented in this encounter Visit Diagnoses Diagnosis History of kidney cancer Personal history of malignant neoplasm of kidney History of kidney cancer Personal history of malignant neoplasm of kidney History of kidney cancer Personal history of malignant neoplasm of kidney documented in this encounter
--- OUTSIDE RECORDS SUMMARY | 2024-07-23 01:24 | XMS_ITS | Encounter Summary ---
Author Organization [facility] [place] [address] Care Team Providers Care Copy Preparer Name Role Phone Unavailable Primary Care Provider Unavailabl e Encounter Details Date Type Department Care Team (Late st Contact Info) Description 09/12/2015 [place] [phone] Jarocho Jenkins MD [address] [place] [address] Social History Tobacco Use Types Packs/Day Years [...]
--- OUTSIDE RECORDS SUMMARY | 2024-07-23 01:24 | XMS_ITS | Encounter Summary ---
Author Organization [facility] [place] [address] Care Team Providers Care Block Layer Name Role Phone Ivanna Hughes APRN Primary Care Provider +1- [phone] Encounter Details Date Type Department Care Team (Late st Contact Info) Description 06/16/2014 Orders Only Urology at [facility] [place] [address] Jarocho Jenkins MD [address] [place] [address] Social History Tobacco Use Types Packs/Day Years [...] on filedocumented in this encounter Care Teams Block Layer Relationship Specialty Start Date End Date Ivanna Hughes APRN PCP - General 05/19/11 09/10/15 documented as of this encounter
--- OUTSIDE RECORDS SUMMARY | 2024-07-23 01:24 | XMS_ITS | Encounter Summary ---
Author Organization [facility] [place] [address] Care Team Providers Care Cementing Bulk Material Operator Name Role Phone Ivanna Hughes APRN Primary Care Provider +1- [phone] Encounter Details Date Type Department Care Team (Late st Contact Info) Description 12/22/2014 [place] [phone] Jarocho Jenkins MD [address] [place] [address] Social History Tobacco Use Types Packs/Day Years [...] on filedocumented in this encounter Care Teams Cementing Bulk Material Operator Relationship Specialty Start Date End Date Ivanna Hughes APRN PCP - General 05/19/11 09/10/15 documented as of this encounter
--- OUTSIDE RECORDS SUMMARY | 2024-07-23 01:24 | XMS_ITS | Encounter Summary ---
Author Organization [facility] Address [facility] [address] [place] [address] Care Team Providers Care Bridge Toll Collector Name Role Phone Unavailable Primary Care Provider Unavailabl e Encounter Details Date Type Department Care Team (Latest Contact Info) Description 07/26/2016 12:15 AM EDT - 07/26/2016 11:59 PM EDT Hospital Encounter Radiology Library at [facility] [place] [address] Vance Jose MD [facility] [place] [address] Pain Discharge Disposition: Home Social History Tobacco [...] MD IMG FILM LIBRARY ORD ERABLES [place], [place] documented in this encounter Visit Diagnoses Diagnosis Pain Generalized pain documented in this encounter
--- OUTSIDE RECORDS SUMMARY | 2024-07-23 01:24 | XMS_ITS | Encounter Summary ---
Author Organization [facility] [place] [address] Care Team Providers Care Accounting Auditor Name Role Phone Ivanna Hughes APRN Primary Care Provider +1- [phone] Reason for Visit * Reason Onset Date Comments Advice Only 02/17/2015 Encounter Details Date Type Department Care Team (Late st Contact Info) Description 02/17/2015 Telephone Gastroenterology at [facility] [place] [phone] John Eason, yarrow gatherer Only Social History Tobacco Use Types Packs/Day [...] on filedocumented in this encounter Care Teams Accounting Auditor Relationship Specialty Start Date End Date Ivanna Hughes APRN PCP - General 05/19/11 09/10/15 documented as of this encounter
--- OUTSIDE RECORDS SUMMARY | 2024-07-23 01:24 | XMS_ITS | Encounter Summary ---
Author Organization [facility] [place] [address] Care Team Providers Care Cytotechnologist/Cytology Supervisor Name Role Phone Ivanna Hughes APRN Primary Care Provider +1- [phone] Encounter Details Date Type Department Care Team (Late st Contact Info) Description 12/15/2014 10:10 AM EDT - 12/15/2014 11:59 PM EDT Hospital Encounter CT Scan at [facility] [place] [address] CLINIC, DR VALLE Social History Tobacco Use [...] mLs documented in this encounter Care Teams Cytotechnologist/Cytology Supervisor Relationship Specialty Start Date End Date Ivanna Hughes, MANAGER TRADING PCP - General 05/19/11 09/10/15 documented as of this encounter
--- OUTSIDE RECORDS SUMMARY | 2024-07-23 01:24 | XMS_ITS | Encounter Summary ---
[place] [address] Care Team Providers Care Histology Supervisor Name Role Phone Unavailable Primary Care Provider Unavailabl e Reason for Referral * Diagnostic Test (Routine) - Closed Specialty Diagnoses / Procedures Referred By Ugo maynard Referred To Contact Radiology Diagnoses History of kidney cancer Procedures CT Abdomen With/Wo Contrast Jarocho Jenkins MD [address] [place] [address] [facility] [place] [address] Referral ID Status Reason Start Date Expiration Date V isits Requested Visits Authorized [id number] Closed Specialty Service Requested 03/10/2016 03/10/2017 1 1 Reason for Visit * Diagnostic Test (Routine) - Closed Specialty Diagnoses / Procedures Referred By Ugo maynard Referred To Contact Radiology Diagnoses History of kidney cancer Procedures CT Abdomen With/Wo Contrast Jarocho Jenkins MD [address] [place] [address] [facility] [place] [address] Referral ID Status Reason Start Date Expiration Date V isits Requested Visits Authorized [id number] Closed Specialty Service Requested 03/10/2016 03/10/2017 1 1 Encounter Details Date Type Department Care Team (Latest Contact Info) Description 03/14/2016 11:19 AM EDT - 03/14/2016 11:59 PM EDT Hospital [place] [address] Jarocho Jenkins MD [address] [place] [address] History of kidney cancer Discharge Disposition: Home [...]
--- OUTSIDE RECORDS SUMMARY | 2024-07-23 01:24 | XMS_ITS | Encounter Summary ---
Author [facility] [place] [address] Care Team Providers Care Specialty Cook Name Role Phone Ivanna Hughes APRN Primary Care Provider +1- [phone] Encounter Details Date Type Department Care Team (Late st Contact Info) Description 12/15/2014 1:00 PM EDT Follow-Up Urology at [facility] [place] [phone] Jarocho Jenkins MD [address] [place] [address] History of kidney cancer Discharge Disposition: Home [...] intervals supplied above were not validated at [facility]. Results from pediatric patients should be interpreted [...] the following links into your internet browser. [email or web address] Blood specimen (specimen) 09/11/2015 12:53 PM EST 09/11/2015 12:58 PM EST Narrative Resulting Agency Comment Spec In Lab Jarocho Jenkins MD CHEMISTRY ORDERABLES [facility] * (ABNORMAL) Comprehensive metabolic panel (non-fasting) (12/15/2014 10:00 AM EDT) [facility] Glucose 99 60 - 199 mg/dL [facility] Comment:Diabetes: >=200 mg/d L plus symptoms Blood Urea Nitrogen 25(H) 10 - 20 mg/dL [facility] Creatinine 1.56(H) 0.80 - 1.50 mg/dL [facility] Comment: Please note that the pediatric reference intervals supplied above were not validated at [facility]. Results from pediatric patients should be interpreted [...] the following links into your internet browser. [email or web address] Blood specimen (specimen) 12/15/2014 10:00 AM EDT 12/15/2014 10:14 AM EDT Narrative Resulting Agency Comment Spec In Lab Jarocho Jenkins MD CHEMISTRY ORDERABLES [facility] documented in this encounter Visit Diagnoses Diagnosis History of kidney cancer Personal history of malignant neoplasm of kidney History of kidney cancer Personal history of malignant neoplasm of kidney documented in this encounter Care Teams Specialty Cook Relationship Specialty Start Date End Date Ivanna Hughes APRN PCP - General 05/19/11 09/10/15 documented as of this encounter
--- OUTSIDE RECORDS SUMMARY | 2024-07-23 01:24 | XMS_ITS | Encounter Summary ---
Author Organization [facility] Address [facility] [place] [place] [address] Care Team Providers Care Entrepreneurship Program Director Name Role Phone Ivanna Hughes APRN Primary Care Provider +1- [phone] Encounter Details Date Type Department Care Team (Latest Contact Info) Description 09/26/2014 1:39 PM EST - 09/26/2014 5:29 PM EST Hospital Encounter [place] [address] Margarita Almaguer MD [facility] DR [place] [address] Discharge Disposition: Home Social History Tobacco Use [...] When should you call for help? Call 261 anytime you think you may need emergency [...] you need to be checked. [facility] [phone] 8a-5p Same Day Endo [phone] 7a-8p Otherwise contact [phone] and ask to speak to the brushing machine operator agriculture consultant Follow up care is a huff part [...] JR. : 1950 Age: 64 y.o. Address: [address] [place] [phone] (home) Mobile: No relevant phone numbers on [...] NEPHRECTOMY performed by Jarocho Jenkins MD at [facility] MA[facility] OR Medications: Prior to Admission [...] Almaguer MD - 09/26/2014 4:23 PM EST [facility] [place] Note Patient Name: Shree Ortez Jr. : [id number] MR#: [id number] Case Date: 09/26/2014 Surgeon: Surgeon(s) and Role: [...] EST 09/26/2014 4:13 PM EST Narrative [facility] 09/26/2014 4:13 PM EST Specimen requisition ordered. ??Separate Pathology report to follow Margarita Almaguer MD PATHOLOGY/CYTOLOGY O RDELEAZAR Performing Organization Address [facility] Co de Phone Number [facility] * Specimen to Pathology (surgical or derm) (09/26/2014 4:13 PM EST) AP Specimen 09/26/2014 4:13 PM EST 09/26/2014 4:13 PM EST Narrative [facility] - 09/26/2014 4:13 PM EST Specimen requisition ordered. ??Separate Pathology report to follow Margarita Almaguer MD PATHOLOGY/CYTOLOGY O TRISTIAN Performing Organization Address [facility] Co de Phone Number [facility] * Specimen to Pathology (surgical or derm) (09/26/2014 4:13 PM EST) AP Specimen 09/26/2014 4:13 PM EST 09/26/2014 4:13 PM EST Narrative [facility] - 09/26/2014 4:13 PM EST Specimen requisition ordered. ??Separate Pathology report to follow Margarita Almaguer MD PATHOLOGY/CYTOLOGY O TRISTIAN Performing Organization Address [facility] Co de Phone Number [facility] * Surgical Pathology Report (09/26/2014 4:12 PM EST) Final Diagnosis ? [facility] ? Provider: ?? MARGARITA ALMAGUER ?Pt. Name: ?? SHREE ORTEZ JR ? Acc #: ?[id number] ?Pt. ? Col Date: ?? 09/26/2014 ?/Sex: [...] ? ---Clinical Information--- ? Specimen Submitted: ? [facility] ? Provider: ?? MARGARITA ALMAGUER ?Pt. Name: ?? BALJINDER GARCÍA, SHREE Aparicio ? Acc #: ?[id number] ?Pt. ? Col Date: ?? 09/26/2014 ?/Sex: ?1950,(64 years),Male ? Rec Date: ?? 09/26/2014 ?LOC: ?4T ? SURGICAL PATHOLOGY ? A - Ascending polyp, diminutive sessile, cold snared ? B - Transverse polyp, diminutive, cold snared ? C - Gastric polyp, biopsied ? Clinical History: ? Polyp ? Clinical Diagnosis: ? Same 09/28/2014 4:23 PM EST [facility] GI Biopsy 09/26/2014 4:12 PM EST 09/26/2014 4:12 PM EST GI Biopsy 09/26/2014 4:12 PM EST 09/26/2014 4:12 PM EST GI Biopsy 09/26/2014 4:12 PM EST 09/26/2014 4:12 PM EST Margarita Almaguer MD PATHOLOGY/CYTOLOGY O RDERABLES Performing Organization Address City/State/[facility] Co de Phone Number [facility] [place] [address] * UPPER GI ENDOSCOPY (09/26/2014 3:12 PM EST) UPPER GI ENDOSCOPY [facility] Endoscopy Patient Name: Shree Ortez ? Procedure Date: 09/26/2014 3:12 PM ? Date of : 1950 ? Age: 64 ? Order #: [id number] ? Procedure: ? Upper GI endoscopy Indications: [...] COLONOSCOPY (09/26/2014 3:12 PM EST) COLONOSCOPY [facility] Endoscopy Patient Name: Shree Ortez ? Procedure Date: 09/26/2014 3:12 PM ? Date of : 1950 ? Age: 64 ? Order #: [id number] ? Procedure: ? Colonoscopy Indications: ? Screening [...] Provider: Marissa Caraballo, RN)1547 (Given - Provider: Marisas Caraballo, RN) documented in this encounter Care Teams Entrepreneurship Program Director Relationship Specialty Start Date End Date Ivanna Hughes LAMINATION BUILDER PCP - General 05/19/11 09/10/15 documented as of this encounter
--- OUTSIDE RECORDS SUMMARY | 2024-07-23 01:24 | XMS_ITS | Encounter Summary ---
Author Organization [facility] [place] [address] Care Team Providers Care Office Mail Clerk Name Role Phone Ivanna Hughes Red MARTIN Primary Care Provider +1- [phone] Reason for Visit * Reason Comments GI Problem Encounter Details Date Type Department Care Team (Late st Contact Info) Description 01/18/2015 9:00 AM EDT Office Visit Gastroenterology at [facility] [place] [address] Jelly Sewell SENIOR POWER SCHEDULER [facility] [place] [address] Diffuse esophageal spasm Discharge Disposition: Home Social [...] Call with an update in 4 weeks [phone] 4. Consider drinking warm liquids before meals to relax your esophagus 5. Follow up 3 months Jelly Sewell APRN [phone] documented in this encounter Progress Notes * [...] by Jarocho Jenkins MD at [facility] MAIN OR ??? Colonoscopy, diagnostic N/A 09/26/2014 COLONOSCOPY, DIAGNOSTIC performed by Nina Almaguer MD at [facility] ENDOSCOPY ??? Upper gi endoscopy, biopsy N/A 09/26/2014 EGD WITH BIOPSY performed by Nina Almaguer MD at [facility] ENDOSCOPY ??? Appendectomy 1972 ??? Total nephrectomy [...] Sewell APRN Section of Gastroenterology [place] [address] documented in this encounter Plan of Treatment Scheduled Procedures Name Priority Associated Diagnoses Date/Ti me EGD, UPPER GI ENDOSCOPY (WRV U 2.09) Esophageal dysphagia Encounter for colorectal cancer screening COLONOSCOPY, DIAGNOSTIC (WRV U 3.26) Esophageal dysphagia Encounter for colorectal cancer screening documented as of this encounter Visit Diagnoses Diagnosis Diffuse esophageal spasm Dyskinesia of esophagus documented in this encounter Care Teams Office Mail Clerk Relationship Specialty Start Date End Date Ivanna Hughes APRN PCP - General 05/19/11 09/10/15 documented as of this encounter
--- OUTSIDE RECORDS SUMMARY | 2024-07-23 01:25 | XMS_ITS | Encounter Summary ---
Author Organization [facility] [place] [address] Care Team Providers Care Career Development Coordinator Name Role Phone vIanna Hughes APRN Primary Care Provider +1- [phone] Encounter Details Date Type Department Care Team (Late st Contact Info) Description 04/28/2014 4:00 PM EDT Office Visit Urology at [facility] [place] [phone] Jarocho Jenkins MD [address] [place] [address] Kidney tumor Discharge Disposition: Home Social History [...] benign pathology, DVT/PE, other medical complications like CT, renal dysfunction, open conversion etc. He has [...] intervals supplied above were not validated at [facility]. Results from pediatric patients should be interpreted [...] the following links into your internet browser. [email or web address] Blood specimen (specimen) 04/28/2014 4:18 PM EDT 04/28/2014 4:26 PM EDT Narrative Resulting Agency Comment Spec In Lab Jarocho Jenkins MD CHEMISTRY ORDERABLES [facility] * XR chest routine PA & lateral [...] organs documented in this encounter Care Teams Career Development Coordinator Relationship Specialty Start Date End Date Ivanna Hughes APRN PCP - General 05/19/11 09/10/15 documented as of this encounter
--- OUTSIDE RECORDS SUMMARY | 2024-07-23 01:25 | XMS_ITS | Encounter Summary ---
Author Organization [facility] Address [facility] [place] [address] Care Team Providers Care Certified Massage Therapist Name Role Phone Ivanna Hughes APRN Primary Care Provider +1- [phone] Reason for Visit * Reason Comments Hand Injury Encounter Details Date Type Department Care Team (Late st Contact Info) Description 06/26/2011 3:30 PM EDT Follow-Up Occupational Therapy at [facility] [place] [address] Alejandro Roche, OT [facility] PHYSICAL MEDICINE & [place] [address] Unknown None Amputation of finger tip Discharge [...] the patient continues to practice desensitizing techniques. Optics Manufacturing Technician Goals (to be met by discharge): Shree [...] referral and number of a clinic in [place], [place]. (X) Shree Ortez Jr. participated in evaluation and treatment process and agrees to treatment interventions. documented in this encounter Plan of Treatment Scheduled Procedures Name Priority Associated Diagnoses Date/Ti md EGD, UPPER GI ENDOSCOPY (WRV U 2.09) Esophageal dysphagia Encounter for colorectal cancer screening COLONOSCOPY, DIAGNOSTIC (WRV U 3.26) Esophageal dysphagia Encounter for colorectal cancer screening documented as of this encounter Visit Diagnoses Diagnosis Amputation of finger tip Traumatic amputation of other finger(s) (complete) (partial), without mention of complication documented in this encounter Care Teams Certified Massage Therapist Relationship Specialty Start Date End Date Ivanna Hughes APRN PCP - General 05/19/11 09/10/15 documented as of this encounter
--- OUTSIDE RECORDS SUMMARY | 2024-07-23 01:25 | XMS_ITS | Encounter Summary ---
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 [...] ureter documented in this encounter Care Teams Gold And Silver Assayer Relationship Specialty Start Date End Date Ivanna Hughes APRN PCP - General 05/19/11 09/10/15 documented as of this encounter
--- OUTSIDE RECORDS SUMMARY | 2024-07-23 01:25 | XMS_ITS | Encounter Summary ---
Author Organization [facility] Address [address] [place] [address] Care Team Providers Care Dialysis Rn Name Role Phone Norma Murdock CANCELLATION CLERK Primary Care Provider [phone] Reason for Visit * Reason Comments New Patient Visit Feeling of fullness in throat getting worse. Started 2011 * Referral (Routine) - Authorization Not Required Specialty Diagnoses / Procedures Referred By Ugo maynard Referred To Contact Diagnoses Dysphagia Harjit Mcneil, RPA [address] [place] [address] [facility] [address] [place] [address] Referral ID Status Reason Start Date Expiration Date Visits Requested Visits Authorized [id number] Authorization Not Required 1 1 Encounter Details Date Type Department Care Team (Late st Contact Info) Description 11/07/2022 10:50 EST Office Visit [facility] - [facility] [address] [place] [address] Tobias Bell MD [address] [place] [address] [address] Laryngeal edema (Primary Dx); LPRD [...] of dysphagia status post previous work-up at [facility] with esophageal manometry showing esophageal spasms. He was started on a calcium channel georgi. He was unable to tolerate proton pump inhibitor therapy. He continues to complain of fullness and feeling of mucus or foreign body sensation in the throat. This is mild severity constant no known modifying factors. Past Medical History: Diagnosis Date ??? Cancer ([facility]CC[facility]) (HCC) ??? Chronic kidney disease ??? Heart [...] as needed. December 17, 2022/10:52 Patient: Shree Ortez Scope #: [id number] Has this been documented in the log: Yes documented in this encounter Plan of Treatment Not on file documented as of this encounter Visit Diagnoses Diagnosis Laryngeal edema- Primary Edema of larynx LPRD (laryngopharyngeal reflux disease) Other diseases of larynx documented in this encounter Care Teams Dialysis Rn Relationship Specialty Start Date End Date Norma Murdock FNP [address] [facility] [address] [place] [phone] PCP - General 05/01/22 documented as of this encounter
--- OUTSIDE RECORDS SUMMARY | 2024-07-23 01:25 | XMS_ITS | Encounter Summary ---
Author Organization [facility] Address [facility] [address] [place] [address] Care Team Providers Care Case Manager Name Role Phone Ivanna Hughes APRN Primary Care Provider [phone]- [phone] Reason for Visit * Reason Comments Follow-up F/U L 3RD & 4TH AMP. DOI 05/19 2011 Encounter Details Date Type Department Care Team (Late st Contact Info) Description 09/24/2011 1:15 PM EST Follow-[place] [phone] Blair Bowman MD [facility] [place] [address] Amputation of finger tip (Primary Dx) Discharge [...] complication documented in this encounter Care Teams Case Manager Relationship Specialty Start Date End Date Ivanna Hughes APRN PCP - General 05/19/11 09/10/15 documented as of this encounter
--- OUTSIDE RECORDS SUMMARY | 2024-07-23 01:25 | XMS_ITS | Encounter Summary ---
[place] [address] Care Team Providers Care Body Maker Name Role Phone Ivanna Hughes APRN Primary Care Provider [phone] Encounter Details Date Type Department Care Team (Late st Contact Info) Description 06/03/2014 6:30 AM EDT - 06/03/2014 9:43 AM EDT Hospital Encounter [place] [phone] Renal mass Social History Tobacco Use Types [...] ureter documented in this encounter Care Teams Body Maker Relationship Specialty Start Date End Date Ivanna Hughes APRN PCP - General 05/19/11 09/10/15 documented as of this encounter
--- OUTSIDE RECORDS SUMMARY | 2024-07-23 01:25 | XMS_ITS | Encounter Summary ---
Author Organization [facility] Address [facility] [address] [place] [address] Care Team Providers Care Hydro Station Operator Name Role Phone Ivanna Hughes APRN Primary Care Provider [phone]- [phone] Reason for Visit * Reason Comments Finger Injury Encounter Details Date Type Department Care Team (Late st Contact Info) Description 05/28/2011 3:45 PM EDT Office [place] [address] Belkys Meza, OT [facility] PHYSICAL MEDICINE & [place] [address] Blair Bowman MD [facility] [place] [address] Alejandro Roche, OT [facility] PHYSICAL MEDICINE & [place] [address] Amputation of finger tip (Primary Dx) Discharge [...] to call with any questions or concerns. Consultant Rn Goals (to be met by discharge): Shree [...] complication documented in this encounter Care Teams Hydro Station Operator Relationship Specialty Start Date End Date Ivanna Hughes APRN PCP - General 05/19/11 09/10/15 documented as of this encounter
--- OUTSIDE RECORDS SUMMARY | 2024-07-23 01:25 | XMS_ITS | Encounter Summary ---
Author Organization [facility] Address [address] [place] [address] Care Team Providers Care Photoengraving Etcher Apprentice Name Role Phone Norma Murdock Primary Care Provider [phone] Encounter Details Date Type Department Care Team [...] on filedocumented in this encounter Care Teams Photoengraving Etcher Apprentice Relationship Specialty Start Date End Date Norma Murdock FNP [address] [place] [phone] PCP - General 05/01/22 documented as of this encounter
--- OUTSIDE RECORDS SUMMARY | 2024-07-23 01:25 | XMS_ITS | Clinical Summary ---
Author Organization [facility] Address [address] [place] [address] Care Team Providers Care Beauty Specialist Name Role Phone Norma Murdock OPERATING ROOM MANAGER Primary Care Provider [phone] Allergies Active Allergy Reactions Criticality Noted Date [...] migh t be different from the original. [facility] Memory Program JACQUI scanned to [employer] on: 2018-03-09 Problem Noted Date Diagnosed Date Hypertension 03/14/2018 Overweight 03/14/2018 Renal cell carcinoma (HCC-CMS) 03/14/2018 Anxiety and depression 03/14/2018 Encounters Date Type Department Care Team Description 07/19/2024 Lab Requisition [facility] Pathology & Laboratory Medicine - [facility] [address] [place] [address] Outr Resulting Lab, Provider from Last 3 Months Surgical History Surgery Date Site/Laterality Comments TOTAL [...] Fall Risk Screening 03/17/2019 03/17/2018 COVID-19 Vaccine (24 season) 2023 Hepatitis C Screen Completed 01/25/2021 Procedures Procedure Name Priority Date/Time Associated Diagnosis Comments LYME AB Routine 07/19/2024 11:50 EDT HEPATITIS C AB W REFLEX TO HCV RNA BY PCR Routine 01/25/2021 8:25 EDT from Last 3 Months or Most Recently Relevant to Health Maintenance Results * LYME AB (07/19/2024 11:50 EDT) Lyme Ab Negative Negative 07/20/2024 10:46 EDT [facility] Blood VENOUS BLOOD / Unknown 07/19/2024 11:50 EDT 07/19/2024 22:53 EDT Provider Outr Resulting Lab IMMUNOLOGY A ND SEROLOGY ORDERABLES [facility] [address] [place] [address] * HEPATITIS C AB W REFLEX TO HCV RNA BY PCR (01/25/2021 8:25 EDT) Hep C Antibody Negative Negative 01/26/2021 12:04 EDT [facility] Blood VENOUS BLOOD / Unknown 01/25/2021 8:25 EDT 01/25/2021 20:41 EDT Provider Outr Resulting Lab CHEMISTRY & BLOOD GAS ORDERABLES [facility] [address] [place] [address] from Last 3 Months or Most Recently Relevant to Health Maintenance Care Teams Beauty Specialist Relationship Specialty Start Date End Date Norma Murdock FNP [address] [facility] [facility] [address] [place] [address] PCP - General 05/01/22
--- OUTSIDE RECORDS SUMMARY | 2024-07-23 01:25 | XMS_ITS | Encounter Summary ---
Author Organization [facility] Address [facility] [address] [place] [address] Care Team Providers Care Hair Dryer Name Role Phone Ivanna Hughes APRN Primary Care Provider [phone]- [phone] Reason for Visit * Reason Comments Finger Pain Encounter Details Date Type Department Care Team (Late st Contact Info) Description 06/10/2011 1:00 PM EDT Office [place] [address] Tobias Jacobsen, OT [facility] PHYSICAL MEDICINE & [place] [address] Amputation of finger tip (Primary Dx) Social [...] has good potential for gains with therapy. Longterm Goals (to be met by discharge): Shree [...] Scheduled Procedures Name Priority Associated Diagnoses Date/Ti co EGD, UPPER GI ENDOSCOPY (WRV U 2.09) Esophageal dysphagia Encounter for colorectal cancer screening COLONOSCOPY, DIAGNOSTIC (WRV U 3.26) Esophageal dysphagia Encounter for colorectal cancer screening documented as of this encounter Visit Diagnoses Diagnosis Amputation of finger tip- Primary Traumatic amputation of other finger(s) (complete) (partial), without mention of complication documented in this encounter Care Teams Hair Dryer Relationship Specialty Start Date End Date Ivanna Hughes APRN PCP - General 05/19/11 09/10/15 documented as of this encounter
--- OUTSIDE RECORDS SUMMARY | 2024-07-23 01:25 | XMS_ITS | Encounter Summary ---
Author Organization [facility] Address [facility] [place] [address] [place] [address] Care Team Providers Care Central Melt Specialist Name Role Phone Ivanna Hughes APRN Primary Care Provider [phone]- [phone] Encounter Details Date Type Department Care Team (Late st Contact Info) Description 04/28/2014 4:03 PM EDT - 04/28/2014 11:59 PM EDT Hospital Encounter XRay at [address] [place] [address] Kidney tumor Social History Tobacco Use Types [...] organs documented in this encounter Care Teams Central Melt Specialist Relationship Specialty Start Date End Date Ivanna Hughes APRN PCP - General 05/19/11 09/10/15 documented as of this encounter
--- OUTSIDE RECORDS SUMMARY | 2024-07-23 01:25 | XMS_ITS | Referral Summary ---
Author Organization [facility] Address [address] [place] [address] Care Team Providers Care Senior Reactor Operator Name Role Phone Norma Murdock MANAGER CARDIOLOGY Primary Care Provider [phone] Encounters Date Type Department Care Team Description 07/19/2024 Lab Requisition [facility] Pathology & Laboratory Medicine - [facility] [address] [place] [address] Outr Resulting Lab, Provider from Last 3 Months Allergies Active Allergy Reactions Criticality Noted Date [...] migh t be different from the original. [facility] Memory Program JACQUI scanned to [employer] [...] Lyme Ab Negative Negative 07/20/2024 10:46 EDT [facility] Blood VENOUS BLOOD / Unknown 07/19/2024 11:50 EDT 07/19/2024 22:53 EDT Provider Outr Resulting Lab IMMUNOLOGY A ND SEROLOGY ORDERABLES Performing Organization Address City/[facility]/ZIP Co de Phone Number [facility] [address] [place] [address] * HEPATITIS C AB W REFLEX TO HCV RNA BY PCR (01/25/2021 8:25 EDT) Hep C Antibody Negative Negative 01/26/2021 12:04 EDT [facility] Blood VENOUS BLOOD / Unknown 01/25/2021 8:25 EDT 01/25/2021 20:41 EDT Provider Outr Resulting Lab CHEMISTRY & BLOOD GAS ORDERABLES Performing Organization Address City/[facility]/ZIP Co de Phone Number [facility] [address] [place] [address] from Last 3 Months or Most Recently Relevant to Health Maintenance Care Teams Senior Reactor Operator Relationship Specialty Start Date End Date Norma Murdock FNP [address] [place] [phone] PCP - General 05/01/22
--- OUTSIDE RECORDS SUMMARY | 2024-07-23 01:25 | XMS_ITS | Encounter Summary ---
Author Organization [facility] Address [facility] [address] [place] [address] Care Team Providers Care District Scout Executive Name Role Phone Ivanna Hughes APRN Primary Care Provider [phone] Reason for Visit * Reason Comments Hand Injury L 11/23 fing amp Encounter Details Date Type Department Care Team (Late st Contact Info) Description 07/22/2011 1:00 PM EDT [place] [address] Blair Bowman MD [facility] [place] [address] Amputation of finger tip (Primary Dx) Discharge [...] complication documented in this encounter Care Teams District Scout Executive Relationship Specialty Start Date End Date Ivanna Hughes APRN PCP - General 05/19/11 09/10/15 documented as of this encounter
--- OUTSIDE RECORDS SUMMARY | 2024-07-23 01:25 | XMS_ITS | Encounter Summary ---
Author Organization [facility] Address [address] [place] [address] Care Team Providers Care Smelting Engineer Name Role Phone Amelia Swanson FISHERIES SPECIALIST- Primary Care Provider + Norma Murdock [facility] Primary Care Provider [phone] Encounter Details Date Type Department Care Team (Late st Contact Info) Description 09/04/2020 Lab Requisition [facility] Pathology & Laboratory Medicine - [address] [address] Outr Resulting Lab, Provider Social History Tobacco [...] MICROBIOLOGY - GENERAL ORDERABLES Performing Organization Address [facility] Co de Phone Number [facility] [address] [place] [address] * COVID-19 TESTING (09/04/2020 10:25 EST) COVID-19 rt-PCR Result Negative Negative 09/05/2020 15:12 EST [facility] Comment: Negative results do not preclude 2019-nCoV infection and should not be used as the sole basis for treatment or other patient management decisions. Negative results must be combined with clinical observations, patient history, and epidemiological information. This test was developed and its performance characteristics determined by [facility]. It has not been cleared or approved [...] defined by the FDA Performed on the [employer] Flex. Performing Lab [employer] 7 [facility] Lab 09/05/2020 15:12 EST [facility] Swab 09/04/2020 10:2 5 EST 09/04/2020 15:38 EST Provider Outr Resulting Lab MICROBIOLOGY - GENERAL ORDERABLES Performing Organization Address City/[facility] Co de Phone Number [facility] [address] [place] [address] documented in this encounter Visit Diagnoses Not on filedocumented in this encounter Care Teams Smelting Engineer Relationship Specialty Start Date End Date Amelia Swanson FNP- PCP - General 11/11/17 04/30/22 Norma Murdock FNP [address] [place] [phone] PCP - General 05/01/22 documented as of this encounter
--- OUTSIDE RECORDS SUMMARY | 2024-07-23 01:25 | XMS_ITS | Encounter Summary ---
[facility] [place] [address] Care Team Providers Care Community Nurse Name Role Phone Ivanna Hughes APRN Primary Care Provider [phone]- [phone] Encounter Details Date Type Department Care Team (Late st Contact Info) Description 05/02/2014 [place] [phone] Jarocho Jenkins MD [address] [place] [address] Social History Tobacco Use Types Packs/Day Years [...] on filedocumented in this encounter Care Teams Community Nurse Relationship Specialty Start Date End Date Ivanna Hughes APRN PCP - General 05/19/11 09/10/15 documented as of this encounter
--- OUTSIDE RECORDS SUMMARY | 2024-07-23 01:25 | XMS_ITS | Encounter Summary ---
Author Organization [facility] Address [facility] [address] [place] [address] Care Team Providers Care Inside Sales Assistant Name Role Phone Ivanna Hughes APRN Primary Care Provider [phone]- [phone] Reason for Visit * Reason Comments Hand Injury Encounter Details Date Type Department Care Team (Late st Contact Info) Description 05/19/2011 11:18 PM EDT - 05/20/2011 6:00 AM EDT [place] [phone] EMERGENCY DEPT, [facility] [place] [address] Discharge Disposition: Home Social History Tobacco Use [...] you have any other questions or concerns. -[phone] documented in this encounter Medications at Time [...] clear understanding of all discharge instructions. * Jaye Qureshi RN - 05/20/2011 4:00 AM EDT [...] pleasant, left-hand dominant gentleman who presented to [facility] for injuries to his left [...] views of his hand were obtained from [facility] which show ulnar-oblique comminuted distal phalanx fractures [...] Mr. Ortez is a very pleasant, 60-year-old, [id number] gentleman who suffered partial amputations of his [...] to have enough tissue to do a [id number]-[id number] based closure on the ring finger given [...] who will arrive to return him to [facility]. * Jaye Qureshi RN - 05/20/2011 2:40 [...] Scheduled Procedures Name Priority Associated Diagnoses Date/Ti ga EGD, UPPER GI ENDOSCOPY (WRV U 2.09) [...] Absolute 0.02 0.00 - 0.05 x10(3)/mc L [facility] Blood specimen (specimen) 05/19/2011 11:50 PM EDT 05/19/2011 11:58 PM EDT Rafa Castellanos MD HEMATOLOGY ORDERABLE S Performing Organization Address [facility] de Phone Number [facility] * REFLEX LAB-ANTIBODY SCREEN (05/19/2011 11:50 PM EDT) Ab Screen Interp Negative [facility] Expires at 2359 on: [id number] [facility] Blood specimen (specimen) 05/19/2011 11:50 PM EDT 05/19/2011 11:58 PM EDT Rafa Castellanos MD BLOOD BANK LAB ORDER WILLIAM Performing Organization Address [facility] de Phone Number [facility] * REFLEX LAB-ABO/RH TYPING (05/19/2011 11:50 PM EDT) ABORH Type B Pos [facility] Blood specimen (specimen) 05/19/2011 11:50 PM EDT 05/19/2011 11:58 PM EDT Rafa Castellanos MD BLOOD BANK LAB ORDER WILLIAM Performing Organization Address [facility] de Phone Number [facility] * (ABNORMAL) APTT (05/19/2011 11:50 PM EDT) Partial Thromboplastin Time 23(L) 25 - 37 sec [facility] Comment: Decreased clotting times may be caused by improper phlebotomy technique. Recommended therapeutic PTT range for full dose unfractionated heparin is 80-114 seconds. Blood specimen (specimen) 05/19/2011 11:50 PM EDT 05/19/2011 11:58 PM EDT Rafa Castellanos MD HEMATOLOGY ORDERABLE S Performing Organization Address [facility] de Phone Number [facility] * Prothrombin Time (05/19/2011 11:50 PM EDT) Prothrombin Time 13.5 12.3 - 14.7 sec [facility] Comment: [facility] Transfusion Committee Guidelines: INR less than 2.0, [...] MD HEMATOLOGY ORDERABLE S Performing Organization Address [facility] de Phone Number [facility]ORT[facility] [...] of Diabetes Mellitus, Position Statement from the [place] [employer] Association. ??Diabetes Care, Volume 33, Supplement [...] PM EDT Rafa Castellanos MD CHEMISTRY ORDERABLES [facility] * (ABNORMAL) CBC (with Diff) (05/19/2011 11:50 [...] EDT Rafa Castellanos MD HEMATOLOGY ORDERABLE S [facility] documented in this encounter Visit Diagnoses Diagnosis [...] RN) documented in this encounter Care Teams Inside Sales Assistant Relationship Specialty Start Date End Date Ivanna Hughes APRN PCP - General 05/19/11 09/10/15 documented as of this encounter
--- OUTSIDE RECORDS SUMMARY | 2024-07-23 01:25 | XMS_ITS | Encounter Summary ---
Author Organization [facility] Address [address] [place] [address] Care Team Providers Care Metal Sprayer Production Name Role Phone Amelia Swanson [facility] Primary Care Provider + Reason for Visit * Reason Comments Memory Loss * Prior Authorization (Routine) - Closed Specialty Diagnoses / Procedures Referred By Ugo maynard Referred To Contact Psychology Diagnoses Memory deficit Amelia Swanson, [address] [address] [facility] [address] [place] [address] Referral ID Status Reason Start Date Expiration Date Visits Re quested Visits Authorized [id number] Closed 2 2 Encounter Details Date Type Department Care Team (Late st Contact Info) Description 03/06/2018 14:00 EDT Office Visit [facility] Memory Program - Medical Office Building [address] [place] [address] Jennifer Matos PsyD [address] [facility] [address] [place] [address] Memory loss (Primary Dx) Discharge [...] at the Medical Office Building on the [facility] of the [facility]. PATIENT PROFILE: Mr. Ortez is a 67 year-old, left handed, single, male who was born and raised in [place]. He currently lives by himself in [place], [place]. His mother at 84 years of [...] later earned hisGED. He served in the [employer]. 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 According to his medical records, [...] able to name the current U.S. President, Safekeeping Clerk, and Governor of [place]. 2. Attention/processing: He could repeat up to [...] 3.0 hrs Time includes 2 hours of [address] performed by a psychologist and 1 hour of [address] performed by a precision optics technician (this time was separate from that of the psychologist). Jennifer Matos Psy.D. Psychologist - Doctorate Portions of this report have been written using voice recognition software, please disregard errorsin spelling or dictation. documented in this encounter Plan of Treatment Not on file documented as of this encounter Visit Diagnoses Diagnosis Memory loss- Primary documented in this encounter Care Teams Metal Sprayer Production Relationship Specialty Start Date End Date Amelia Swanson, SERVICES DELIVERY DRIVER- PCP - General 11/11/17 04/30/22 documented as of this encounter
--- OUTSIDE RECORDS SUMMARY | 2024-07-23 01:25 | XMS_ITS | Encounter Summary ---
Author Organization [facility] [place] [address] Care Team Providers Care Health Care Sanitary Technician Name Role Phone Ivanna Barkley APRN Primary Care Provider [phone]- [phone] Encounter Details Date Type Department Care Team (Late st Contact Info) Description 06/07/2014 7:30 AM EDT - 06/07/2014 11:58 AM EDT [place] [address] Susan Jenkins MD [address] [place] [address] @LAPAROSCOPY, RADICAL NEPHRECTOMY (WRVU ) Social History [...] longer draining The number for questions is [phone] before 5 PM weekdays and [phone] after 5 PM and weekends. Activity level: [...] will be mailed to you. Please call [phone] (clinic number for appointments) to confirm date [...] questions about discharge summary, HLIV removed by NUCLEAR EQUIPMENT TEST ENGINEER, report faxed to [facility], patient discharged to sister's house passing flatus, [...] the agency as his sister lives in [facility] . He will have a friend transport him by private car to His sisters. The address is c/o [address], [address] [place], [place] [phone]. RN to review instructions, medications activity and [...] for Functional mobility Josefa Dexter PT Pager: [phone] Physical Therapy Rehabilitation Department * Patti Paris RN - 06/09/2014 1:52 PM EDT 1230 PT in to work w/ pt. PT reports to RN pt nauseous. 4 mg IV zofran administered. Pt reports pain not too bad at 4/10. Will continue to monitor. 1330 NUCLEAR EQUIPMENT TEST ENGINEER Vita reports pt dry heaving. RN in [...] be discharged today. Josefa Dexter, PT Pager [phone] * Susan Jenkins MD - 06/08/2014 12:05 [...] NEPHRECTOMY performed by Susan Jenkins MD at [facility] MA[facility] OR Social History: Patient lives [...] instructed in the use of sock aid, stem roller operator, long handled bathsponge forADLs. ?? Patient demonstrated modified independence in donning socks, pants, boots, slippers using assistive devices. ?? Encouraged patient to use sock aid and stem roller operator for lower body self care as he [...] timed interventions: 10 minutes self care Pager: [phone] KAYE GARCIA OT 06/10/2014 Occupational Therapy Rehabilitation Department * Discharge Summary - Nafisa Barksdale PA - 06/10/2014 12:39 PM EDT Discharge Summary Patient Name: Shree Ortez Jr. Patient Age: 64 y.o. Language: Palauan Race: White Ethnicity: Not nor Admit date: [...] Hospital Course: Patient was admitted electively to [facility] via the same day surgery program and [...] longer draining The number for questions is [phone] before 5 PM weekdays and [phone] after 5 PM and weekends. Activity level: [...] will be mailed to you. Please call [phone] (clinic number for appointments) to confirm date and time of your appointment if you do not receive it. General Instructions None Future Appointments and Orders Future Orders Please Complete By Expires Referral to Home Health - at DISCHARGE [[id number] CPT(R)] Process Instructions: Scheduling Instructions: Comments: DOCUMENTATION FOR VNA SERVICES (INCLUDING THOSE PATIENTS WITH MEDICARE COVERAGE REQUIRING HOME VNA SERVICES AND/OR HOSPICE SERVICES) PATIENT'S LOCATION: Shree Ortez C/o sisterMinal [address] [place], [place] [phone] Home: [address] [place] [phone] There is no home phone number on file. Cell: Telephone Information: Assistant Golf Professional's Name: Patient, Minal andersen [phone] In discussion with the attending physician, it is certified that this patient is under their care and that they, or a Nurse Practitioner,Clinical Nurse specialist or Physician Field Merchandiser who is working directly with them, had [...] program if appropriate HOME HEALTH CARE AGENCY: [facility]. PHONE: [phone] FAX: [phone] Start of care: Day after discharge (06-11-14) [...] [address] [place] [address] All VNA agencies which cover the area of patient's residence have been reviewed, either verbally castro writing, and patient/family have chosen the home health care agency noted Questions: Responses: [facility] Sisters home What services are requested Physical Therapy Start date 06/11/2014 Responsible MD post discharge contact info PCP/Susan Jenkins Md [facility] Follow-Up: No future appointments. Primary Care Provider: IVANNA BARKLEY APRN [phone] Follow-up Recommendations for Providers: Please see discharge [...] was managed by the Urology Team at [facility]. If you have any questions or concerns, please feel free to contact us. Provider Contact Information: Urology Clinic: [facility] (after business hours): * Plan of Care - Janet aMrin RN - 06/10/2014 11:20 AM EDT Problem: [...] a strange gait pattern when ambulating with [facility] slippersand FWW, lacking heel strike and [...] 0 minutes JOSEFA DEXTER PT 06/09/2014 Pager: [phone] Physical Therapy Rehabilitation Department * Care Management [...] made. A copy will be sent to [facility] [place] [facility] per his request. Patient to be disch arged later today. CANDIE CASTRO Surgery Oceanic Sciences Professor Pager [phone] * Plan of Care - Patti Paris [...] Office of Care Management (OCM) / Clinical Custom Furrier (CRC) Initial Assessment Has the appropriate physician [...] No ?? Has the physician, patient and/or utility sales representative or other multidisciplinary team leader/research psychologist requested a care management consult? No (If patient does not need further evaluation based on screening then .[facility]) Evaluation Introduced and reviewed the CRC role with patient and/or utility sales representative. The following information has been gathered from this communication. Reason for Hospitalization/Current Status: RENAL MASS Procedure(s): @LAPAROSCOPY, RADICAL NEPHRECTOMY - left Permission given to speak with sister regarding status. Family/Social support: Single 64 year old residing in [place], [place] alone and is retired. Helists his sister Che and brother, Armond as contacts. He is independent in activities.He may go stay with her sister in [place], [place] in elderly housing and WC bound per RN report. Baseline Functional/Cognitive/Mobility Status: A&O x3, independent in mobility and self-care. (is it feasible for patient to return to previous environment with the same and/or additional resources and supports?) Yes, ? 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 Transportation at Discharge: States his brother will transport by private vehicle. Anticipated Continued Care Needs: Deciding on VNA services at his sisters home. F/u with surgery Plan (If plan is unknown delete the following section and utilize smart phrase [.cmplan] when information becomes available) Based on discussion with patient and/or utility sales representative, physician and other multidisciplinary team members the following information has been gathered: Patient and/or utility sales representative short term goal: Tolerate diet, pain controlled with oral medications, bowel function returned, mobility Patient and/or utility sales representative alf goal: Return home at prior level of function Patient and/or representatives preferences: Stay with his sister Anticipated discharge resources/services: To be determined.Family, ? VNA Anticipated social supports: Brother,sister, friends Anticipated cost of services: Costs related to LEGAL SUPPORT ASSISTANT, DME, SNF/SWING/ACUTE/LTAC level or care, medications and/or transportation have been provided to the patient and/or utility sales representative. .. Implementation (If plan is unknown delete the following section and utilize smart phrase [.cmimplementation] when information becomes available) Based on discussion with patient and/or utility sales representative, physician, and other multidisciplinary teammembers the following information has been gathered/actions completed. For those being transferred/discharged to another facility, VNA, infusion company, DME, etc. Patient deciding on VNA or not Will offer choices in the [facility] [place] [facility] if desired. If Managed Medicare, need to make reasonable attempts, based on the information from the insurer, to limit those agencies/facilities in network. No The patient and/or utility sales representative agrees with the reccommended plan. Deciding on VNA ?? Does patient, utility sales representative and/or anticipated caregivers (whether at home, [...] services. Signature: Nicki Lao RN CRC Pager: [phone] * OR Attestation - Susan Jenkins MD - 06/07/2014 12:20 PM EDT Attestation: Case Date: 06/07/2014 I was present and I participated during the entire procedure (does not need to include opening and closing). SUSAN JENKINS MD 06/07/2014 * Op Note - Lata Agustin MD - 06/07/2014 11:42 AM EDT [facility] Operative Note Patient Name: Shree Ortez Jr. : [id number] MR#: [id number] Case Date: 06/07/2014 Surgeon: Surgeon(s) and Role: [...] incision. The fascia was closed with interrupted uodmsf-wv-[id number] 0 vicryl sutures. The skin incisions were closed with 4-0 monocryl suture. The patient was woken and bro ught to the PACU in stable condition. He tolerated the procedure well. * Brief Op Note - Lata Agustin MD - 06/07/2014 11:29 AM EDT Brief Operative Note Patient Name: Shree Ortez Jr. : [id number] MR#: [id number] Case Date: 06/07/2014 Surgeon: Surgeon(s) and Role: [...] supplied above were not validated at [facility]. Results from pediatric patients should be interpreted [...] the following links into your internet browser. [email or web address] Blood specimen (specimen) 06/09/2014 5:58 AM EDT [...] supplied above were not validated at [facility]. Results from pediatric patients should be interpreted [...] the following links into your internet browser. [email or web address] Blood specimen (specimen) 06/08/2014 4:24 AM EDT 06/08/2014 4:47 AM EDT Narrative Resulting Agency Comment Spec In Lab Susan Jenkins MD CHEMISTRY ORDERABLES [facility] * Surgical Pathology Report (06/07/2014 10:53 AM EDT) Final Diagnosis ? [facility] ? Provider: ?? SUSAN JENKINS ?Pt. Name: ?? BALJINDER GARCÍA, SHREE Aparicio ? Acc #: ?[id number] ?Pt. ? Col Date: ?? 06/07/2014 ? [...] Slides reviewed, microscopic description not recorded. ? [facility] ? Provider: ?? SUSAN JENKINS ?Pt. Name: ?? BALJINDER GARCÍA, SHREE Aparicio ? Acc #: ?[id number] ?Pt. ? Col Date: ?? 06/07/2014 ? /Sex: ?1950,(64 years),Male ? Rec Date: ?? 06/07/2014 ? LOC: ?4WST ? SURGICAL PATHOLOGY ? Whole slide scan: ? [id number] [id number] ? S [id number] A8-1 ? ---Gross Description--- ? A - [...] capsule; (9) tumor and adjacent parenchyma; (10) utility sales representative upper pole ? parenchyma.; (11) hilar nodes. (R11) ??shb ? [facility] ? Provider: ?? SUSAN JENKINS ?Pt. Name: ?? BALJINDER GARCÍA, SHREE Aparicio ? Acc #: ?[id number] ?Pt. ? Col Date: ?? 06/07/2014 ? /Sex: ?1950,(64 years),Male ? Rec Date: ?? 06/07/2014 ? LOC: ?4WST ? SURGICAL PATHOLOGY ? ---Clinical Information--- ? Specimen Submitted: ? A - Left kidney ? Clinical History: ? Renal mass ? Clinical Diagnosis: ? Same 06/10/2014 8:47 AM EDT [facility] SPECIMEN FROM KIDNEY / Unknown 06/07/2014 10:53 AM EDT 06/07/2014 10:53 AM EDT Susan Jenkins MD PATHOLOGY/CYTOLOGY O RDERABLES [facility] [place] [address] * Specimen to Pathology (surgical or derm) (06/07/2014 10:42 AM EDT) AP Specimen 06/07/2014 10:4 2 AM EDT 06/07/2014 10:42 AM EDT Narrative [facility] - 06/07/2014 10:42 AM EDT Specimen requisition ordered. ??Separate Pathology report to follow Susan Jenkins MD PATHOLOGY/CYTOLOGY O [facility] documented in this encounter Visit Diagnoses [...] RN) 0811 (Given - Provider: Patti Paris, DAENNA)2117 (Given - Provider: Lamar Jose RN) 0810 [...] Routine documented in this encounter Care Teams Health Care Sanitary Technician Relationship Specialty Start Date End Date Ivanna Barkley APRN PCP - General 05/19/11 09/10/15 documented as of this encounter
--- OUTSIDE RECORDS SUMMARY | 2024-07-23 01:25 | XMS_ITS | Encounter Summary ---
Author Organization [facility] [place] [address] Care Team Providers Care Pulling Machine Operator Name Role Phone Ivanna Hughes APRN Primary Care Provider +1- [phone] Encounter Details Date Type Department Care Team (Late st Contact Info) Description 04/15/2014 10:45 AM EDT Follow-Up General Surgery at [facility] [place] [phone] Flash Rivas MD [facility] [place] [address] Left groin pain; Left inguinal hernia; Left [...] service. Will follow-up on MRI with Mr. Oretz via phone once results available. documented in [...] reviewed by the attending Flash Rivas MD [facility] ORDERABLES * Creatinine (04/15/2014 9:11 AM EDT) Creatinine 1.01 0.80 - 1.50 mg/dL [facility] Comment: Please note that the pediatric reference intervals supplied above were not validated at [facility]. Results from pediatric patients should be interpreted in conjunction to the patient's age, height and muscle mass. Est Glomerular Filtration Rate >60 >=60 [facility] Comment: This estimated GFR (eGFR) value was [...] the following links into your internet browser. [email or web address] Blood specimen (specimen) 04/15/2014 9:11 AM EDT 04/15/2014 9:15 AM EDT Narrative Resulting Agency Comment Spec In Lab Flash Rivas MD CHEMISTRY ORDERABLES Performing Organization Address City/State/[facility] [[email or web address]] Co ut Phone Number [facility] documented in this encounter Visit Diagnoses Diagnosis Left groin pain Abdominal pain, left lower quadrant Left inguinal hernia Inguinal hernia without mention of obstruction or gangrene, unilateral or unspecified, (not specified as recurrent) Left renal mass Unspecified disorder of kidney and ureter documented in this encounter Care Teams Pulling Machine Operator Relationship Specialty Start Date End Date Ivanna Hughes APRN PCP - General 05/19/11 09/10/15 documented as of this encounter
--- OUTSIDE RECORDS SUMMARY | 2024-07-23 01:25 | XMS_ITS | Encounter Summary ---
Author Organization [facility] Address [address] [place] [address] Care Team Providers Care Bobbin Loose End Finder Name Role Phone Norma Murdock HEEL SLUGGER Primary Care Provider Reason for Visit * Reason Comments Eye Exam Encounter Details Date Type Department Care Team (Late st Contact Info) Description 07/24/2022 14:30 EDT Office Visit [facility] Ophthalmology - [address] [address] Mahogany Caraballo MD [address] [facility], [address] [place] [address] Social History Tobacco Use Types [...] noticed in january/february, was seen by an galvanometer assembler and was told he had dry eyes, [...] Endocrine: NL Hematologic: NL Immunologic: Drug Allergy Oncology Consultant: Exposures: Other: Attestation: Allergies include: Lisinopril and [...] Normal Normal Refraction Wearing Rx Sphere Cylinder [place] Add Right -1.50 +1.50 020 +2.50 Left -0.50 +0.50 000 +2.50 IMPRESSION & PLAN: 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 See plan. He complains of blurry NV- see plan PLAN: Daily warm soak twice daily Manual lid hygeine daily Artificial tears twice daily Return in 3 months for undilated exam with HVF 24-2 SS, possible refraction if pt has not found an galvanometer assembler Shree was seen today for eye exam. [...] Periphery Normal Normal Wearing Rx Sphere Cylinder [place] Add Right eye -1.50 +1.50 020 +2.50 Left eye -0.50 +0.50 000 +2.50 Care Teams Bobbin Loose End Finder Relationship Specialty Start Date End Date Norma Murdock FNP [address] [place] [address] [place] [phone] PCP - General 05/01/22 documented as of this encounter
--- OUTSIDE RECORDS SUMMARY | 2024-07-23 01:25 | XMS_ITS | Encounter Summary ---
Author Organization [facility] Address [address] [place] [address] Care Team Providers Care Floor Scrubber Name Role Phone Amelia Swanson [facility] Primary Care Provider + Encounter Details Date Type Department Care Team (Late st Contact Info) Description 03/06/[address] [facility] [address] [place] [address] It Communications Specialist, Outpatient Memory loss (Primary Dx) Social History [...] EDT) Syphilis Serology Negative 03/09/2018 14:08 EDT [facility] Comment:Reference Range: Neg ative Blood specimen (specimen) BLOOD SPECIMEN / Unknown 03/06/2018 15:57 EDT 03/06/2018 17:42 EDT Cedric Mckenzie MD IMMUNOLOGY AND S EROLOGY ORDERABLES Performing Organization Address City/[facility]/ZIP Co de Phone Number [facility] [address] [place] [address] * VITAMIN B12 (03/06/2018 15:57 EDT) Vitamin B-12 434 211 - 911 pg/ml 03/09/2018 10:43 EDT [facility] Comment: The results of this assay can be falsely lowered due to the consumption of Biotin. Blood specimen (specimen) BLOOD SPECIMEN / Unknown 03/06/2018 15:57 EDT 03/06/2018 17:42 EDT Cedric Mckenzie MD CHEMISTRY & BLOO D GAS ORDERABLES Performing Organization Address [facility] Co de Phone Number [facility] [address] [place] [address] * HEMAGRAM AND DIFFERENTIAL (03/06/2018 15:57 EDT) WBC 5.74 4.0 - 10.4 K/cmm 03/06/2018 17:59 [facility] RBC 4.60 4.36 - 5.78 M/cmm 03/06/2018 17:59 [facility] Hemoglobin 14.0 13.8 - 17.3 gm/dl 03/06/2018 17:59 [facility] HCT 41.0 39.5 - 50.2 % 03/06/2018 17:59 [facility] MCV 89 81 - 95 fl 03/06/2018 17:59 [facility] MCH 30.4 27.6 - 33.0 pg 03/06/2018 17:59 [facility] MCHC 34.1 32.8 - 36.4 gm/dl 03/06/2018 17:59 [facility] RDW-CV 13.2 <14.2 % 03/06/2018 17:59 [facility] RDW-SD 42.9 <46.0 fl 03/06/2018 17:59 EDT [facility] PLT 220 141 - 377 K/cmm 03/06/2018 17:59 EDT [facility] MPV 11.0 9.5 - 12.7 fl 03/06/2018 [facility] Neutrophils 59.5 % 03/06/2018 17:59 EDT [facility] % Lymphocytes 31.7 % 03/06/2018 17:59 EDT [facility] % Monocytes 7.3 % 03/06/2018 17:59 EDT [facility] % Eosinophils 0.9 % 03/06/2018 [facility] Basophils 0.3 % 03/06/2018 17:59 [facility] % Immature Grans 0.3 % 03/06/2018 17[facility]59 [facility] ABS Neutrophils 3.41 2.20 - 8.85 K/cmm 03/06/2018 17:59 EDT [facility] ABS Lymphs 1.82 1.09 - 3.30 K/cmm 03/06/2018 17:59 T [facility] ABS Monocytes 0.42 0.1 - 0.8 K/cmm 03/06/2018 17:59 [facility] Eosinophils 0.05 0.03 - 0.61 K/cmm 03/06/2018 17:59 [facility] ABS Basophils 0.02 0.01 - 0.11 K/cmm 03/06/2018 17:59 EDT [facility] ABS Immature Grans 0.02 0 - 0.06 K/cmm 03/06/2018 17:59 EDT [facility] Type of Diff: Automated 03/06/2018 17:59 [facility] Blood specimen (specimen) BLOOD SPECIMEN / Unknown 03/06/2018 15:57 EDT 03/06/2018 17:42 EDT Cedric Mckenzie MD PACKAGES & BILLY BARRAZA ORDERABLES [facility] [address] [place] [address] * (ABNORMAL) COMPREHENSIVE METABOLIC PANEL (CMP) (03/06/2018 15:57 EDT) Potassium 4.7 3.5 - 5.0 mEq/L 03/06/2018 18:15 [facility] Sodium 142 136 - 145 mEq/L 03/06/2018 18:15 [facility] Chloride 107 96 - 110 mEq/L 03/06/2018 18:15 [facility] CO2 25 22 - 32 mEq/L 03/06/2018 18:15 [facility] Total Alkaline Phosphatase 105 38 - 126 U/L 03/06/2018 18:15 [facility] Bilirubin, Total <0.5 <1.4 mg/dl 03/06/20 18 18:15 [facility] AST 31 15 - 46 U/L 03/06/2018 18:15 [facility] ALT 45 21 - 72 U/L 03/06/2018 18:15 [facility] Albumin 3.9 3.4 - 4.9 g/dl 03/06/2018 18:15 [facility] Total Protein 6.7 6.3 - 8.2 g/dl 03/06/2018 18:15 [facility] Creatinine 1.34(H) 0.66 - 1.25 mg/dl 03/06/2018 18:15 [facility] GFR, Calculated 54(L) >60 ml/min/1.7 3m2 03/06/2018 18:15 [facility] Comment: eGFR calculated using CKD-EPI equation for non Americans. Multiply eGFR by 1.16 for Americans. BUN 21 10 - 26 mg/dl 03/06/2018 18:15 [facility] Calcium 9.3 8.5 - 10.5 mg/dl 03/06/2018 18:15 [facility] Calculated Calcium 9.4 8.5 - 10.5 mg/dl 03/06/2018 18:15 [facility] Glucose, Serum 89 70 - 100 mg/dl 03/06/2018 18:15 EDT [facility] Fasting? No 03/06/2018 15:54 EDT [facility] Blood specimen (specimen) BLOOD SPECIMEN / Unknown 03/06/2018 15:57 EDT 03/06/2018 17:42 EDT Cedric Mckenzie MD CHEMISTRY & BLOO D GAS ORDERABLES Performing Organization Address City/State/[facility] Co de Phone Number [facility] [address] [place] [address] documented in this encounter Visit Diagnoses Diagnosis Memory loss- Primary documented in this encounter Care Teams Floor Scrubber Relationship Specialty Start Date End Date Amelia Swanson, CHEMICALS DISTILLER- PCP - General 11/11/17 04/30/22 documented as of this encounter
--- OUTSIDE RECORDS SUMMARY | 2024-07-23 01:25 | XMS_ITS | Encounter Summary ---
Author Organization [facility] Address [facility] [address] [place] [address] Care Team Providers Care Fur Operator Name Role Phone Ivanna Hughes APRN Primary Care Provider +1- [phone] Reason for Visit * Reason Comments Inguinal Hernia Encounter Details Date Type Department Care Team (Late st Contact Info) Description 02/21/2014 11:30 AM EDT Office Visit General Surgery at [facility] [place] [address] Flash Rivas MD [facility] [place] [address] Left groin pain (Primary Dx) Discharge Disposition: [...] Creatinine 1.01 0.80 - 1.50 mg/dL [facility] Comment: Please note that the pediatric reference intervals supplied above were not validated at [facility]. Results from pediatric patients should be interpreted in conjunction to the patient's age, height and muscle mass. Est Glomerular Filtration Rate >60 >=60 [employer] [facility] [facility] Comment: This estimated GFR (eGFR) value [...] the following links into your internet browser. [email or web address] Blood specimen (specimen) 04/15/2014 9:11 AM EDT 04/15/2014 9:15 AM EDT Narrative Resulting Agency Comment Spec In Lab Flash Rivas MD CHEMISTRY ORDERABLES [facility] documented in this encounter Visit Diagnoses Diagnosis Left groin pain- Primary Abdominal pain, left lower quadrant Left groin pain Abdominal pain, left lower quadrant Left inguinal hernia Inguinal hernia without mention of obstruction or gangrene, unilateral or unspecified, (not specified as recurrent) Left renal mass Unspecified disorder of kidney and ureter documented in this encounter Care Teams Fur Operator Relationship Specialty Start Date End Date Ivanna Hughes APRN PCP - General 8/28/11 12/20/15 documented as of this encounter
--- OUTSIDE RECORDS SUMMARY | 2024-07-23 01:25 | XMS_ITS | Encounter Summary ---
[place] [address] Care Team Providers Care Ski Binding Fitter And Repairer Name Role Phone Ivanna Hughes APRN Primary Care Provider +1- [phone] Encounter Details Date Type Department Care Team (Late st Contact Info) Description 06/03/2014 9:44 AM EDT - 06/03/2014 11:59 PM EDT Hospital Encounter [place] [phone] Social History Tobacco Use Types Packs/Day Years [...] reviewed by the attending Jarocho Jenkins MD [facility] ORDERABLES documented in this encounter Visit Diagnoses Not on filedocumented in this encounter Care Teams Ski Binding Fitter And Repairer Relationship Specialty Start Date End Date Ivanna Hughes APRN PCP - General 05/19/11 09/10/15 documented as of this encounter
--- OUTSIDE RECORDS SUMMARY | 2024-07-23 01:25 | XMS_ITS | Encounter Summary ---
Author Organization Formerly [facility], [facility]–1983 Address [facility] [place] [address] Care Team Providers Care Contract Administration Specialist Name Role Phone Ivanna Hughes VERONICA Primary Care Provider +1- [phone] Reason for Referral * Occupational Therapy (Routine) - Closed Specialty Diagnoses / Procedures Referred By Ugo maynard Referred To Contact Occupational Therapy Diagnoses Fingertip amputation Mark Anthony Abdul MD [facility] [place] [address] [facility] [place] [address] Referral ID Status Reason Start Date Expiration Date V isits Requested Visits Authorized [id number] Closed Evaluate and Treat 05/28/2011 11/24/2011 1 1 Reason for Visit * Reason Comments Left Hand Pain L long/ring fing par t amp, doi 05/19/11 Encounter Details Date Type Department Care Team (Late st Contact Info) Description 05/28/2011 3:00 PM EDT Office [place] [address] Ion Bowman MD [facility] [place] [address] Fingertip amputation (Primary Dx) Discharge [...] encounter Miscellaneous Notes * Miscellaneous - Kingsley Photo Technologist - 06/03/2011 1:24 PM EDT documented in [...] complication documented in this encounter Care Teams Contract Administration Specialist Relationship Specialty Start Date End Date Ivanna Hughes APRN PCP - General 05/19/11 09/10/15 documented as of this encounter
--- OUTSIDE RECORDS SUMMARY | 2024-07-23 01:25 | XMS_ITS | Encounter Summary ---
Author Organization Formerly [facility] [place] [address] Care Team Providers Care Edge Burnisher Uppers Name Role Phone Ivanna Hughes APRN Primary Care Provider +1- [phone] Encounter Details Date Type Department Care Team (Latest Contact Info) Description 06/03/2014 6:28 AM EDT - 06/03/2014 11:59 PM EDT Hospital Encounter CT Scan at [facility] [place] [phone] CLINIC, DR LEONARD Jenkins, Jarocho Dale MD [address] [place] [address] Renal mass Discharge Disposition: Home Social History [...] ureter documented in this encounter Care Teams Edge Burnisher Uppers Relationship Specialty Start Date End Date Ivanna Hughes, VERONICA PCP - General 05/19/11 09/10/15 documented as of this encounter
--- OUTSIDE RECORDS SUMMARY | 2024-07-23 01:25 | XMS_ITS | Encounter Summary ---
Author Organization [facility] [place] [address] Care Team Providers Care Coding Team Lead Name Role Phone Ivanna Hughes VERONICA Primary Care Provider +1- [phone] Reason for Referral * Occupational Therapy (Routine) - Closed Specialty Diagnoses / Procedures Referred By Contac t Referred To Contact Occupational Therapy Diagnoses Amputation of finger tip Alfredo Romo III, MD [facility] [place] [address] [facility] [place] [address] Referral ID Status Reason Start Date Expiration Date V isits Requested Visits Authorized [id number] Closed Evaluate and Treat 06/10/2011 12/07/2011 1 1 * Occupational Therapy (Routine) - Complete - Patient Will Schedule External Appt Specialty Diagnoses / Procedures Referred By Contac t Referred To Contact Occupational Therapy Diagnoses Amputation of finger tip Alfredo Romo III, MD [facility] [place] [address] Referral ID Status Reason Start Date Expiration Date Visits Requested Visits Authorized [id number] Complete - Patient Will Schedule External Appt Evaluate and Treat 06/10/2011 12/07/2011 1 1 Reason for Visit * Reason Comments Left Hand Pain L ring/small fing am p, doi/dos 05/19/11 Encounter Details Date Type Department Care Team (Late st Contact Info) Description 06/10/2011 3:30 PM EDT Follow-Up Orthopaedics at [facility] [place] [address] Ion Bowman MD [facility] [place] [address] Amputation of finger tip (Primary Dx) Discharge [...] complication documented in this encounter Care Teams Coding Team Lead Relationship Specialty Start Date End Date Ivanna Hughes APRN PCP - General 05/19/11 09/10/15 documented as of this encounter
--- OUTSIDE RECORDS SUMMARY | 2024-07-23 01:25 | XMS_ITS | Encounter Summary ---
Author Organization [facility] Address [facility] [place] [address] Care Team Providers Care Sr. Merchandise Planner Name Role Phone Ivanna Hughes APRN Primary Care Provider +1- [phone] Encounter Details Date Type Department Care Team (Late st Contact Info) Description 06/07/2014 7:25 AM EDT Anesthesia Event [place] [address] Fly Whitten MD [facility] DR [place] [address] Anesthesia Record Procedure Summary Procedure Name Responsible [...] 0646; metacarpal vein right (top of hand); [id number] catheter system; 18 gauge; 0; 06/10/14; 1316 [...] clear to auscultation (-) wheezes Dental Assessment: [facility] Assessment: Patient is wearing No contact(s). IV [...] to blood products. [facility]: documented in this encounter Plan [...] mg documented in this encounter Care Teams Sr. Merchandise Planner Relationship Specialty Start Date End Date Ivanna Hughes APRN PCP - General 05/19/11 09/10/15 documented as of this encounter
--- OUTSIDE RECORDS SUMMARY | 2024-07-23 01:25 | XMS_ITS | Encounter Summary ---
Author Organization [facility] Address [address] [place] [address] Care Team Providers Care Child Care Provider Name Role Phone Amelia Swanson SERVICE PROMOTER SALESPERSON- Primary Care Provider + Norma Murdock [facility] Primary Care Provider [phone] Encounter Details Date Type Department Care Team (Late st Contact Info) Description 01/25/2021 Lab Requisition [facility] Pathology & Laboratory Medicine - [address] [id number] Outr Resulting Lab, Provider Social History Tobacco [...] 0.0 - 6.5 ng/mL 01/25/2021 21:48 EDT [facility] Blood VENOUS BLOOD / Unknown 01/25/2021 8:25 EDT 01/25/2021 20:42 EDT Narrative [facility] - 01/25/2021 21:48 EDT NOTE: Serum PSA concentration should not be interpreted as absolute evidence for the presence or absence of malignant disease. Assayed on Siemens [employer]aur XPT using chemiluminescent technology.??Values obtained by using different assay methods cannot be used interchangeably. Provider Outr Resulting Lab CHEMISTRY & BLOOD GAS ORDERABLES Performing Organization Address City/[facility]/ZIP Co de Phone Number [facility] [address] [place] [address] * HEPATITIS C AB W REFLEX TO HCV RNA BY PCR (01/25/2021 8:25 EDT) Hep C Antibody Negative Negative 01/26/2021 12:04 EDT [facility] Blood VENOUS BLOOD / Unknown 01/25/2021 8:25 EDT 01/25/2021 20:41 EDT Provider Outr Resulting Lab CHEMISTRY & BLOOD GAS ORDERABLES Performing Organization Address City/[facility] Co de Phone Number [facility] [address] [place] [address] documented in this encounter Visit Diagnoses Not on filedocumented in this encounter Care Teams Child Care Provider Relationship Specialty Start Date End Date Amelia Swanson FNP- PCP - General 11/11/17 04/30/22 Norma Murdock FNP [address] [place] [phone] PCP - General 05/01/22 documented as of this encounter
--- OUTSIDE RECORDS SUMMARY | 2024-07-23 01:25 | XMS_ITS | Encounter Summary ---
Author Organization [facility] Address [address] [place] [address] Care Team Providers Care Twine Winder Name Role Phone Norma Murdock GLYCERIN SUPERVISOR Primary Care Provider [phone] Encounter Details Date Type Department Care Team (Late st Contact Info) Description 07/19/2024 Lab Requisition [facility] Pathology & Laboratory Medicine - [address] [phone] Outr Resulting Lab, Provider Social History Tobacco [...] Comments LYME AB Routine 07/19/2024 11:50 EDT documented in this encounter Results * LYME AB (07/19/2024 11:50 EDT) Lyme Ab Negative Negative 07/20/2024 10:46 EDT [facility] Blood VENOUS BLOOD / Unknown 07/19/2024 11:50 EDT 07/19/2024 22:53 EDT Provider Outr Resulting Lab IMMUNOLOGY A ND SEROLOGY ORDERABLES [facility] [address] [place] [address] documented in this encounter Visit Diagnoses Not on filedocumented in this encounter Care Teams Twine Winder Relationship Specialty Start Date End Date Norma Murdock FNP [address] [place] [phone] PCP - General 05/01/22 documented as of this encounter
--- OUTSIDE RECORDS SUMMARY | 2024-07-23 01:25 | XMS_ITS | Encounter Summary ---
Author Organization [facility] Address [address] [place] [address] Care Team Providers Care Photonics Engineering Technician Name Role Phone Amelia Swanson [facility] Primary Care Provider + Reason for Visit * Reason Comments Memory Loss * Prior Authorization (Routine) - Closed Specialty Diagnoses / Procedures Referred By Ugo maynard Referred To Contact Psychology Diagnoses Memory deficit Amelia Swanson, [address] [address] [facility] Memory Program [address] [place] [address] Referral ID Status Reason Start Date Expiration Date Visits Re quested Visits Authorized [id number] Closed 2 2 Encounter Details Date Type Department Care Team (Late st Contact Info) Description 03/17/2018 13:00 EDT Office Visit [facility] Memory Program - Medical Office Building [address] [place], [place] [address] Cedric Mckenzie MD [address] [place] [address] Nieves Swann Medical Office Building, [address] [place] [address] Memory loss (Primary Dx) Social [...] Mckenzie MD - 03/17/2018 0000 EDT [facility] MEMORY PROGRAM CONSULTATION - 03/17/2018 REASON FOR CONSULTATION: The patient's concern about memory symptoms. CONSULTATIVE SOURCE: I was asked to see this patient in consultation by CORBY Cardenas. INFORMANTS: Mr Ortez as well as records provided for review. PATIENT PROFILE: Shree Ortez is a 67-year-old white, left-handed man, currently living by himself in [place]. Mr Ortez has never and has no children. He was born and raised in [place]. He completed high school by earning a GED. 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 Psychiatric history is generally negative. [...] post left nephrectomy, and being overweight. Mr rOtez has had total hip replacement, colonoscopy, total [...] with Mr Ortez for 30 minutes of [id number] conversation and discussion, with more than 50% of that time used for counseling and coordination of care. 2. I provided my assessment as above. 3. I addressed questions. 4. No followup planned at this time. Cedric Mckenzie MD 01 32 PM - Cedric Mckenzie MD ln Dictation ID: [id number] cc: [facility], [address] [address] documented in this encounter Plan of Treatment [...] 10/23/2022 added in this encounter Care Teams Photonics Engineering Technician Relationship Specialty Start Date End Date Amelia Swanson FNP-BC PCP - General 11/11/17 04/30/22 documented as of this encounter
--- OUTSIDE RECORDS SUMMARY | 2024-07-23 01:25 | XMS_ITS | Encounter Summary ---
Author Organization [facility] Address [address] [place] [address] Care Team Providers Care Wood Scrap Handler Name Role Phone Amelia Swanson PROTECTIVE SERVICE SPECIALIST- Primary Care Provider + Norma Murdock [facility] Primary Care Provider Encounter Details Date Type Department Care Team (Late st Contact Info) Description 09/03/2020 Lab Requisition [facility] Pathology & Laboratory Medicine - [address] [phone] Outr Resulting Lab, Provider Social History Tobacco [...] 0.0 - 6.5 ng/mL 09/04/2020 9:52 EST [facility] Blood VENOUS BLOOD / Unknown 09/01/2020 12:30 EST 09/03/2020 17:45 EST Narrative [facility] - 09/04/2020 9:52 EST NOTE: Serum PSA concentration should not be interpreted as absolute evidence for the presence or absence of malignant disease. Assayed on Siemens [employer] XPT using chemiluminescent technology.??Values obtained by using different assay methods cannot be used interchangeably. Provider Outr Resulting Lab CHEMISTRY & BLOOD GAS ORDERABLES [facility] [address] [place] [address] documented in this encounter Visit Diagnoses Not on filedocumented in this encounter Care Teams Wood Scrap Handler Relationship Specialty Start Date End Date Amelia Swanson FNP- PCP - General 11/11/17 04/30/22 Norma Murdock FNP [address] [place] [phone] PCP - General 05/01/22 documented as of this encounter
--- OUTSIDE RECORDS SUMMARY | 2024-07-23 01:25 | XMS_ITS | Encounter Summary ---
Author Organization [facility] [address] [place] [address] Care Team Providers Care Hematologist Name Role Phone Ivanna Hughes APRN Primary Care Provider [phone]- [phone] Encounter Details Date Type Department Care Team (Late st Contact Info) Description 04/15/2014 7:35 AM EDT - 04/15/2014 11:59 PM EDT Hospital Encounter CT Scan at [facility] [place] [address] CLINIC, DR VALLE Social History Tobacco Use [...] mg documented in this encounter Care Teams Hematologist Relationship Specialty Start Date End Date Ivanna Hughes APRN PCP - General 05/19/11 09/10/15 documented as of this encounter
--- OUTSIDE RECORDS SUMMARY | 2024-07-23 01:25 | XMS_ITS | Encounter Summary ---
Author Organization [facility] Address [address] [place] [address] Care Team Providers Care Perinatal Breastfeeding Assistant Name Role Phone Norma Murdock FURNITURE REMOVALIST Primary Care Provider [phone] Reason for Visit * Reason Comments Eye Problem Encounter Details Date Type Department Care Team (Late st Contact Info) Description 10/23/2022 13:00 EST Office Visit [facility] Ophthalmology - [address] [address] Mahogany Caraballo MD [address] [facility], [address] [place] [address] Social History Tobacco Use Types [...] Endocrine: NL Hematologic: NL Immunologic: Drug Allergy [employer] Network Architect: Exposures: None Other: Attestation: Allergies include: Lisinopril [...] intraocular lens Refraction Wearing Rx Sphere Cylinder Ruth Add Right -1.50 +1.50 020 +2.50 Left -0.50 +0.50 000 +2.50 Manifest Refraction Sphere Cylinder Ruth Dist VA Add Near VA Right -0.75 [...] 0.8 with recorded stability in testing from [id number] - PCIOLs ? PLAN: ?? Dear Harjit [...] Caraballo MD PCP is Harjit Mcneil at [facility] rv six months for rnfl, vf [...] - BOTH EYES (10/23/2022 14:05 EST) Narrative [facility] OPHTHALMOLOGY - 10/23/2022 14:05 EST Table formatting [...] eyes- Primary Renal cell carcinoma, unspecified laterality ([facility]) Left eye pain Pain in or [...] chamber intraocular lens Wearing Rx Sphere Cylinder Ruth Add Right eye -1.50 +1.50 020 +2.50 Left eye -0.50 +0.50 000 +2.50 Manifest Refraction Sphere Cylinder Ruth Dist VA Add Near VA Right eye -0.75 +1.25 020 20/25 +2.75 J1 Left eye -0.50 +0.25 180 20/25 +2.75 J1 MR seems same as glasses today Care Teams Perinatal Breastfeeding Assistant Relationship Specialty Start Date End Date Norma Murdock FNP [address] [facility] [address] [place] [phone] PCP - General 05/01/22 documented as of this encounter
--- OUTSIDE RECORDS SUMMARY | 2024-07-23 01:25 | XMS_ITS | Encounter Summary ---
Author Organization [facility] [address] [place] [address] Care Team Providers Care Parimutuel Ticket Checker Name Role Phone Ivanna Hughes APRN Primary Care Provider +1- [phone] Encounter Details Date Type Department Care Team (Latest Contact Info) Description 04/22/2014 3:17 PM EDT - 04/22/2014 11:59 PM EDT Hospital Encounter MRI at [facility] [place] [address] CLINIC, DR LEONARD Rivas, Flash Phan MD [...] mLs documented in this encounter Care Teams Parimutuel Ticket Checker Relationship Specialty Start Date End Date Ivanna Hughes APRN PCP - General 05/19/11 09/10/15 documented as of this encounter
--- OUTSIDE RECORDS SUMMARY | 2024-07-23 01:26 | XMS_ITS | Encounter Summary ---
Author Organization [facility] Address [address] [place] [id number] Care Team Providers Care Retail Field Representative Name Role Phone Amelia Swanson [facility] Primary Care Provider + Reason for Referral * Radiology Services (Routine) - Specialty Report Received Specialty Diagnoses / Procedures Referred By Ugo maynard Referred To Contact Diagnoses Memory loss Procedures CT HEAD WO CONTRAST Cedric Mckenzie MD [address] [place] [address] Medical Office Building, [address] [place] [phone] Referral ID Status Reason Start Date Expiration Date V isits Requested Visits Authorized [id number] Specialty Report Received 11/21/2017 1 1 Encounter Details Date Type Department Care Team (Late st Contact Info) Description 11/21/2017 Orders Only [facility] Memory Program - Medical Office Building [address] [place] [id number] Cedric Mckenzie MD [address] [place] [address] Medical Office Building, [address] [place] [address] Memory loss (Primary Dx) Social [...] * SYPHILIS SEROLOGY (03/06/2018 15:57 EDT) Pathologist [facility] Syphilis Serology Negative 03/09/2018 14:08 EDT [facility] Comment:Reference Range: Neg ative Blood specimen (specimen) BLOOD SPECIMEN / Unknown 03/06/2018 15:57 EDT 03/06/2018 17:42 EDT Cedric Mckenzie MD IMMUNOLOGY AND S EROLOGY ORDERABLES Performing Organization Address [facility] Co de Phone Number [facility] [address] [place] [address] * VITAMIN B12 (03/06/2018 15:57 EDT) [facility] Vitamin B-12 434 211 - 911 pg/ml 03/09/2018 10:43 EDT [facility] Comment: The results of this assay can be falsely lowered due to the consumption of Biotin. Blood specimen (specimen) BLOOD SPECIMEN / Unknown 03/06/2018 15:57 EDT 03/06/2018 17:42 EDT Cedric Mckenzie MD CHEMISTRY & BLOO D GAS ORDERABLES Performing Organization Address [facility] Co de Phone Number [facility] [address] [place] [address] * HEMAGRAM AND DIFFERENTIAL (03/06/2018 15:57 EDT) [facility] WBC 5.74 4.0 - 10.4 K/cmm 03/06/2018 17:59 EDT [facility] RBC 4.60 4.36 - 5.78 M/cmm 03/06/2018 17:59 T [facility] Hemoglobin 14.0 13.8 - 17.3 gm/dl 03/06/2018 [facility] HCT 41.0 39.5 - 50.2 % 03/06/2018 17:59 EDT [facility] MCV 89 81 - 95 fl 03/06/2018 17:59 EDT [facility] MCH 30.4 27.6 - 33.0 pg 03/06/2018 17[facility] MCHC 34.1 32.8 - 36.4 gm/dl 03/06/2018 17:59 [facility] RDW-CV 13.2 <14.2 % 03/06/2018 17:59 [facility] RDW-SD 42.9 <46.0 fl 03/06/2018 17:59 [facility] PLT 220 141 - 377 K/[facility] 03/06/2018 17:59 [facility] MPV 11.0 9.5 - 12.7 fl 03/06/2018 17:59 [facility] % Neutrophils 59.5 % 03/06/2018 17:59 [facility] % Lymphocytes 31.7 % 03/06/2018 17:59 [facility] % Monocytes 7.3 % 03/06/2018 17:59 [facility] % Eosinophils 0.9 % 03/06/2018 17:59 [facility] % Basophils 0.3 % 03/06/2018 17:59 [facility] % Immature Grans 0.3 % 03/06/2018 17:59 [facility] ABS Neutrophils 3.41 2.20 - 8.85 K/cmm 03/06/2018 17:59 [facility] ABS Lymphs 1.82 1.09 - 3.30 K/cmm 03/06/2018 17:59 [facility] ABS Monocytes 0.42 0.1 - 0.8 K/cmm 03/06/2018 17:59 [facility] ABS Eosinophils 0.05 0.03 - 0.61 K/cmm 03/06/2018 17:59 [facility] ABS Basophils 0.02 0.01 - 0.11 K/cm 03/06/2018 17:59 [facility] ABS Immature Grans 0.02 0 - 0.06 K/cmm 03/06/2018 17:59 [facility] Type of Diff: Automated 03/06/2018 17:59 [facility] Blood specimen (specimen) BLOOD SPECIMEN / Unknown 03/06/2018 15:57 EDT 03/06/2018 17:42 EDT Cedric Mckenzie MD PACKAGES & DNA P MADI ORDERABLES [facility] [address] [place] [address] * (ABNORMAL) COMPREHENSIVE METABOLIC PANEL (CMP) (03/06/2018 15:57 EDT) Potassium 4.7 3.5 - 5.0 mEq/L 03/06/2018 18:15 [facility] Sodium 142 136 - 145 mEq/L 03/06/2018 18:15 [facility] Chloride 107 96 - 110 mEq/L 03/06/2018 18:15 [facility] CO2 25 22 - 32 mEq/L 03/06/2018 18:15 [facility] Total Alkaline Phosphatase 105 38 - 126 U/L 03/06/2018 18:15 [facility] Bilirubin, Total <0.5 <1.4 mg/dl 03/06/20 18 18:15 [facility] AST 31 15 - 46 U/L 03/06/2018 18:15 [facility] ALT 45 21 - 72 U/L 03/06/2018 18:15 [facility] Albumin 3.9 3.4 - 4.9 g/dl 03/06/2018 18:15 [facility] Total Protein 6.7 6.3 - 8.2 g/dl 03/06/2018 18:15 [facility] Creatinine 1.34(H) 0.66 - 1.25 mg/dl 03/06/2018 18:15 [facility] GFR, Calculated 54(L) >60 ml/min/1.7 3m2 03/06/2018 18:15 [facility] Comment: eGFR calculated using CKD-EPI equation for non Americans. Multiply eGFR by 1.16 for Americans. BUN 21 10 - 26 mg/dl 03/06/2018 18:15 EDT [facility] Calcium 9.3 8.5 - 10.5 mg/dl 03/06/2018 18:15 EDT [facility] Calculated Calcium 9.4 8.5 - 10.5 mg/dl 03/06/2018 18:15 EDT [facility] Glucose, Serum 89 70 - 100 mg/dl 03/06/2018 18:15 EDT [facility] Fasting? No 03/06/2018 15:54 EDT [facility] Blood specimen (specimen) BLOOD SPECIMEN / Unknown 03/06/2018 15:57 EDT 03/06/2018 17:42 EDT Cedric Mckenzie MD CHEMISTRY & BLOO D GAS ORDERABLES Performing Organization Address City/State/[facility] Co de Phone Number [facility] [address] [place] [address] * CT HEAD WO CONTRAST (03/06/2018 15:42 EDT) Anatomical Region Laterality Modality Other 03/06/2018 15:4 2 EDT 03/06/2018 15:54 EDT Narrative 03/06/2018 15:[address] of the Head ??March 06, 2018. Signs and Symptoms: ??R41.3-Other [id number]; Memory Loss Comparison: None. Technique: CT images [...] March 06, 2018. Signs and Symptoms: R41.3-Other [id number]; Memory Loss Comparison: None. Technique: CT images [...] 11/21/2017 documented in this encounter Care Teams Retail Field Representative Relationship Specialty Start Date End Date Amelia Swanson, VAMP [employer]ER- PCP - General 11/11/17 04/30/22 documented as of this encounter
== END 2024-07-23 01:37 ==
LOC: DI 01:17
PROVIDERS: PCP Physician Assistant; Visit Provider Physician Assistant
DX: M25.552 Pain in left hip (principal); M25.512 Pain in left shoulder; Z96.612 Presence of left artificial shoulder joint
CPT/HCPCS: 73030; 73502

== ENCOUNTER 2024-09-06 03:02 | Outpatient (CLI) | payer OTHER, SELFPAY ==
[2024-09-06 13:19] LABS: Abs Immature Grans 0.01 10^3/uL (0.0-0.06); Absolute Basophil Count 0.03 10^3/uL (0.0-0.2); Absolute Eosinophil Count 0.07 10^3/uL (0.0-0.7); Absolute Lymphocyte Count 2.32 10^3/uL (1.2-3.4); Absolute Neutrophil Count 3.25 10^3/uL (1.2-6.7); Basophils % 0.5 %; Eosinophils % 1.2 %; HCT 42.5 % (40.0-50.0); HGB 14.3 g/dL (13.5-17.5); Immature Grans % 0.2 %; Lymphocytes % 38.2 %; MCH 31.2 pg (27.0-33.0); MCHC 33.6 % (32.0-36.0); MCV 93 fL (80-95); Monocytes % 6.6 %; Neutrophils % 53.3 %; Platelet Count 190 10^3/uL (130-400); RBC 4.58 10^6/uL (4.36-5.78); RDW 12.9 % (11.8-14.1); RDW-SD 43.8 fL; WBC 6.08 10^3/uL (4.4-10.8)
[2024-09-06 13:36] LABS: ESR 15 mm/hr (0-20)
[2024-09-06 13:38] LABS: C-Reactive Protein < 0.50 mg/dL (<or=0.5)
== END 2024-09-06 03:03 | disposition home or self-care (01) ==
LOC: LBO 03:02
PROVIDERS: PCP Physician Assistant; Visit Provider Student in an Organized Health Care Education/Training Program
DX: Z96.612 Presence of left artificial shoulder joint (principal)
CPT/HCPCS: 36415; 85652; 85025; 86140

== ENCOUNTER 2024-10-27 00:22 | Outpatient (CLI) | payer OTHER, SELFPAY ==
--- NOTE | 2024-10-27 07:15 | DI.MRI_ITS ---
Exam(s) MR CERVICAL SPINE WO EXAM: MR CERVICAL SPINE WO CLINICAL HISTORY: worsening spinal cord dysfunction,cervical myelopathy with cervical TECHNIQUE: Multiplanar multisequence MRI of the cervical spine was performed without intravenous con trast. COMPARISON: MR MR CERVICAL SPINE WO from 05/15/2023 FINDINGS: BONES: Vertebral body heights are maintained. There are endplate osteophytes at multiple levels of th e cervical spine, most marked at C5-6 and C6-C7. Alignment is normal. Bone marrow signal intensity is within normal limits. CERVICAL CORD: Craniovertebral junction is unremarkable. The cervical cord is normal size and signal intensity. SOFT TISSUES: Unremarkable. C2-3: No disc herniation or bulge is identified. No significant central spinal canal or neural forami nal stenosis. C3-4: There is mild prominence of the osteophyte disc complex. There are degenerative changes seen a t the right uncovertebral joints causing mild right neural foraminal stenosis. No significant centra l spinal canal or left neural foraminal stenosis is seen. C4-5: No disc herniation or bulge is identified. No significant central spinal canal or neural forami nal stenosis C5-6: There is mild prominence of the osteophyte disc complex but no significant central spinal canal stenosis. There is mild left neural foraminal narrowing. No significant right neural foraminal lucero nosis is seen. C6-7: There is mild prominence of the osteophyte disc complex. There is effacement of the anterior s ubarachnoid space but no cord compression or abnormal signal is seen in the cord. There is moderatel y severe bilateral neural foraminal stenosis. C7-T1: No disc herniation or bulge is identified. No significant central spinal canal or neural jame inal stenosis IMPRESSION: 1. There is normal signal in the spinal cord. 2. Multilevel degenerative changes in the cervical spine resulting in narrowing of the central spinal canal and neural foramina as described above. The findings are most marked at the C6-C7 level. DATA REPOSITORY:
== END 2024-10-27 00:42 ==
LOC: DI 00:22
PROVIDERS: PCP Physician Assistant; Visit Provider Student in an Organized Health Care Education/Training Program
DX: M54.12 Radiculopathy, cervical region
CPT/HCPCS: 72141

== ENCOUNTER 2025-01-18 12:24 | Outpatient (REF) | payer OTHER, SELFPAY ==
[2025-01-18 15:16] LABS: HCT 40.4 % (40.0-50.0); HGB 13.8 g/dL (13.5-17.5); MCHC 34.2 % (32.0-36.0); MCV 94 fL (80-95); MPV 10.7 fL (8.0-11.0); Platelet Count 173 10^3/uL (130-400); RBC 4.31 10^6/uL (4.36-5.78); RDW 12.9 % (11.8-14.1); RDW-SD 44.7 fL
[2025-01-18 15:21] LABS: BUN 23 mg/dL (7-18); CREATININE 1.2 mg/dL (0.70-1.30); Calcium 8.8 mg/dL (8.5-10.1); Chloride 109 mmol/L (98-107); Estimated GFR 63.46 (mL/min/1.73m2); Glucose 98 mg/dL (74-106); Potassium 4.4 mmol/L (3.5-5.1); Sodium 146 mmol/L (136-145)
[2025-01-18 15:36] LABS: Hemoglobin A1C 5.5 % (<5.7)
[2025-01-18 22:31] LABS: PSA, Screening 2.5 ng/mL (<=6.5)
== END 2025-01-18 12:25 | disposition home or self-care (01) ==
LOC: NCHCN 12:24
PROVIDERS: PCP Physician Assistant; Visit Provider Physician Assistant
DX: I10 Essential (primary) hypertension (principal); R73.03 Prediabetes; Z12.5 Encounter for screening for malignant neoplasm of prostate
CPT/HCPCS: 80048; 84153; 85027; 83036

== ENCOUNTER 2025-04-13 16:33 | Outpatient (REF) | payer OTHER, SELFPAY ==
[2025-04-13 21:10] LABS: HCT 40.3 % (40.0-50.0); HGB 14.1 g/dL (13.5-17.5); MCH 32.6 pg (27.0-33.0); MCHC 35.0 % (32.0-36.0); MCV 93 fL (80-95); MPV 11.3 fL (8.0-11.0); Platelet Count 198 10^3/uL (130-400); RBC 4.32 10^6/uL (4.36-5.78); RDW 12.6 % (11.8-14.1); RDW-SD 43.1 fL; WBC 6.31 10^3/uL (4.4-10.8)
[2025-04-13 21:14] LABS: Glucose Negative (Negative)
[2025-04-13 21:34] LABS: INR 1.0 (0.9-1.1); PTT Activated 24.1 sec (20.6-30.2); Prothrombin Time 10.3 sec (9.1-11.1)
[2025-04-13 22:02] LABS: ALT 39 U/L (16-63); AST 28 U/L (15-37); Albumin 3.8 g/dL (3.4-5.0); Alkaline Phosphatase 120 U/L (46-116); Anion Gap 9.7 mmol/L (3-11); BUN 21 mg/dL (7-18); Bilirubin, Total 0.5 mg/dL (0.2-1.0); CO2 26.3 mmol/L (21.0-32.0); Calcium 9.1 mg/dL (8.5-10.1); Chloride 108 mmol/L (98-107); Estimated GFR 63.46 (mL/min/1.73m2); Glucose 102 mg/dL (74-106); Potassium 4.8 mmol/L (3.5-5.1); Sodium 144 mmol/L (136-145); Total Protein 6.9 g/dL (6.4-8.2)
== END 2025-04-13 16:34 | disposition home or self-care (01) ==
LOC: NCHCN 16:33
PROVIDERS: PCP Physician Assistant; Visit Provider Physician Assistant
DX: Z01.818 Encounter for other preprocedural examination (principal)
CPT/HCPCS: 80053; 85027; 81003; 85610; 85730